=== PATIENT | male | born 1950 | race Caucasian/White ===

== ENCOUNTER 2019-08-07 16:15 | Inpatient (IN) | payer MEDICARE, OTHER ==
[2019-08-07] MEDS ORDERED: Ondansetron 4 MG/2 ML SDV IVPUSH ONE ×2 (16:50→19:11)
--- NOTE | 2019-08-07 17:13 | EDM.PDOC ---
ED HPI GENERAL MEDICAL PROBLEM - General Chief Complaint: Gastrointestinal Problem Stated Complaint: THROWING UP FOR SEVERAL DAYS Time Seen by Provider: 08/07/19 16:26 Source of Information: Reports: Patient History Limitations: Reports: No Limitations - History of Present Illness INITIAL COMMENTS - FREE TEXT/NARRATIVE: Patient is a 68-year-old male who presents to the ER with complaints of vomiting and diarrhea for the last week. He states that over the last 2 days he has been taking Imodium which has firmed up his stools. Stools are now formed. He does continue to have vomiting with any oral intake. Describes the vomitus as "dark brown liquid ". He denies any black stools or abdominal pain.. Patient noted to have a harsh, wet sounding cough. He states he has had this cough "for years ". He does state that the cough has worsened over the last week. He has a history of emphysema, as well as liver cirrhosis. Patient is a 50-year smoker and currently smokes three-quarter pack per day. Oxygen saturation in triage was found to be 85% on room air. He is currently on 3 L via nasal cannula satting. He denies any fever or chills. He does have a history of alcohol use, however states he has not drink alcohol in the last 15 years. Right Abdomen Pain Score (Numeric/FACES): 6 - Related Data Allergies Allergy/AdvReac Type Severity Reaction Status Date / Time No Known Allergies Allergy Verified 08/07/19 22:18 Home Meds: Home Meds Acetaminophen [Tylenol] 325 - 650 mg PO ASDIRECTED 08/07/19 [History] Benztropine [Cogentin] 1 mg PO BEDTIME 08/07/19 [History] Methadone 5 mg PO BID 08/07/19 [History] Omeprazole 20 mg PO DAILY 08/07/19 [History] risperiDONE [Risperdal] 2 mg PO BID 08/07/19 [History] traZODone HCl [Trazodone HCl] 50 mg PO BEDTIME 08/07/19 [History] Past Medical History Gastrointestinal History: Reports: Other (See Below) Other Gastrointestinal History: paracentesis Psychiatric History: Reports: Schizophrenia Social & Family History - Tobacco Use Smoking Status *Q: Current Every Day Smoker Years of Tobacco use: 53 Packs/Tins Daily: 0.7 - Caffeine Use Caffeine Use: Reports: Coffee, Soda - Recreational Drug Use Recreational Drug Use: No ED ROS GENERAL - Review of Systems Review Of Systems: Comprehensive ROS is negative, except as noted in HPI. ED EXAM, GI/ABD - Physical Exam Exam: See Below Exam Limited By: No Limitations General Appearance: Alert, WD/WN, No Apparent Distress Respiratory/Chest: No Respiratory Distress, No Accessory Muscle Use, Chest Non- Tender, Decreased Breath Sounds (thoughout), Crackles (course to right lower lobe) GI/Abdominal Exam: Normal Bowel Sounds, Soft, No Organomegaly, No Distention, No Abnormal Bruit, No Mass, Pelvis Stable, Tender (mild epigastric tenderness) Extremities: Normal Inspection, Normal Range of Motion, Non-Tender, Normal Capillary Refill, No Pedal Edema Neurological: Alert, Oriented, CN II-XII Intact, Normal Cognition, Normal Gait, Normal Reflexes, No Motor/Sensory Deficits Psychiatric: Normal Affect, Normal Mood Skin Exam: Warm, Dry, Intact, Normal Color, No Rash Course - Vital Signs Last Recorded V/S: Last Vital Signs Temp 100.1 F 08/07/19 16:33 Pulse 115 H 08/07/19 16:33 Resp 24 H 08/07/19 16:33 BP 126/72 08/07/19 16:33 Pulse Ox 89 L 08/07/19 22:25 - Orders/Labs/Meds Orders: Active Orders 24 hr Category Date Time Status Peripheral IV Care [RC] . DIRECTED Care 08/07/19 16:51 Active CULTURE BLOOD [BC] Stat Lab 08/07/19 18:35 Received CULTURE BLOOD [BC] Stat Lab 08/07/19 18:45 Received PROCALCITONIN [REF] Routine Lab 08/07/19 17:20 Received Sodium Chloride 0.9% [Normal Saline] 1,000 ml Med 08/07/19 17:00 Active IV ASDIRECTED Sodium Chloride 0.9% [Saline Flush] Med 08/07/19 16:51 Active 10 ml FLUSH ASDIRECTED PRN Blood Culture x2 Reflex Set [OM.PC] Stat Oth 08/07/19 18:23 Ordered Peripheral IV Insertion Adult [OM.PC] Stat Oth 08/07/19 16:50 Ordered Medication Orders Acetaminophen (Tylenol) 650 mg PO Q4H PRN PRN Reason: Pain (Mild 1-3)/fever Guaifenesin (Mucinex) 600 mg PO BID [facility] Sodium Chloride (Normal Saline) 1,000 mls @ 150 mls/hr IV ASDIRECTED [facility] Last Admin: 08/07/19 17:21 Dose: 150 mls/hr Azithromycin 500 mg/ Sodium (Chloride) 250 mls @ 250 mls/hr IV Q24H [facility] Ceftriaxone Sodium 2 gm/ (Sodium Chloride) 100 mls @ 200 mls/hr IV Q24H [facility] Influenza Virus Vaccine (Fluzone High-Dose Syringe) 180 mcg IM .ONCE ONE Stop: 08/08/19 10:01 Ipratropium Golden (Atrovent) 0.5 mg NEB Q4HRRT [facility] Last Admin: 08/07/19 22:22 Dose: 0.5 mg Nicotine (Habitrol) 21 mg TRDERM DAILY [facility] Ondansetron HCl (Zofran Odt) 4 mg PO Q6H PRN PRN Reason: nausea, able to take PO Ondansetron HCl (Zofran) 4 mg IV Q6H [facility] Oseltamivir Phosphate (Tamiflu) 75 mg PO BID [facility] Sodium Chloride (Saline Flush) 10 ml FLUSH ASDIRECTED PRN PRN Reason: Keep Vein Open Last Admin: 08/07/19 17:21 Dose: 10 ml Labs: Laboratory Tests 08/07/19 08/07/19 08/07/19 Range/Units 17:20 17:20 17:20 WBC 12.74 H (4.23-9.07) K/mm3 RBC 4.25 L (4.63-6.08) M/mm3 Hgb 14.1 (13.7-17.5) gm/dl Hct 40.9 (40.1-51.0) % MCV 96.2 H (79.0-92.2) fl MCH 33.2 H (25.7-32.2) pg MCHC 34.5 (32.2-35.5) g/dl RDW Std Deviation 44.0 H (35.1-43.9) fL Plt Count 179 (163-337) K/mm3 MPV 9.0 L (9.4-12.3) fl Neut % (Auto) 90.9 H (34.0-67.9) % Lymph % (Auto) 3.1 L (21.8-53.1) % [place] % (Auto) 5.7 (5.3-12.2) % Eos % (Auto) 0 L (0.8-7.0) Baso % (Auto) 0.1 (0.1-1.2) % Neut # (Auto) 11.57 H (1.78-5.38) K/mm3 Lymph # (Auto) 0.40 L (1.32-3.57) K/mm3 [place] # (Auto) 0.73 (0.30-0.82) K/mm3 Eos # (Auto) 0.00 L (0.04-0.54) K/mm3 Baso # (Auto) 0.01 (0.01-0.08) K/mm3 Manual Slide Review Abnormal smear PT (9.7-12.0) SECONDS INR APTT (22-31) SECONDS Sodium 131 L (136-145) mEq/L Potassium 3.5 (3.5-5.1) mEq/L Chloride 92 L (98-107) mEq/L Carbon Dioxide 31 (21-32) mEq/L Anion Gap 11.5 (5-15) BUN 8 (7-18) mg/dL Creatinine 0.9 (0.7-1.3) mg/dL Est Cr Clr Drug Dosing 69.09 mL/min Estimated GFR (MDRD) > 60 (>60) mL/min BUN/Creatinine Ratio 8.9 L (14-18) Glucose 121 H (80-115) mg/dL Lactic Acid (0.4-2.0) mmol/L Calcium 8.0 L (8.5-10.1) mg/dL Phosphorus 2.3 L (2.6-4.7) mg/dL Magnesium 1.4 L (1.8-2.4) mg/dl Total Bilirubin 0.6 (0.2-1.0) mg/dL AST 21 (15-37) U/L ALT 20 (16-63) U/L Alkaline Phosphatase 48 (46-116) U/L C-Reactive Protein 21.5 H* (<1.0) mg/dL Total Protein 6.2 L (6.4-8.2) g/dl Albumin 3.3 L (3.4-5.0) g/dl Globulin 2.9 gm/dL Albumin/Globulin Ratio 1.1 (1-2) Urine Color (Yellow) Urine Appearance (Clear) Urine pH (5.0-8.0) Ur Specific [place] (1.005-1.030) Urine Protein (Negative) Urine Glucose (UA) (Negative) Urine Ketones (Negative) Urine Occult Blood (Negative) Urine Nitrite (Negative) Urine Bilirubin (Negative) Urine Urobilinogen (0.2-1.0) Ur Leukocyte Esterase (Negative) Urine RBC (0-5) /hpf Urine WBC (0-5) /hpf Ur Squamous Epith Cells (0-5) /hpf Urine Bacteria (FEW) /hpf Urine Mucus (FEW) /hpf 08/07/19 08/07/19 08/07/19 Range/Units 17:20 18:35 19:25 WBC (4.23-9.07) K/mm3 RBC (4.63-6.08) M/mm3 Hgb (13.7-17.5) gm/dl Hct (40.1-51.0) % MCV (79.0-92.2) fl MCH (25.7-32.2) pg MCHC (32.2-35.5) g/dl RDW Std Deviation (35.1-43.9) fL Plt Count (163-337) K/mm3 MPV (9.4-12.3) fl Neut % (Auto) (34.0-67.9) % Lymph % (Auto) (21.8-53.1) % [place] % (Auto) (5.3-12.2) % Eos % (Auto) (0.8-7.0) Baso % (Auto) (0.1-1.2) % Neut # (Auto) (1.78-5.38) K/mm3 Lymph # (Auto) (1.32-3.57) K/mm3 [place] # (Auto) (0.30-0.82) K/mm3 Eos # (Auto) (0.04-0.54) K/mm3 Baso # (Auto) (0.01-0.08) K/mm3 Manual Slide Review PT 12.4 H (9.7-12.0) SECONDS INR 1.15 APTT 39 H (22-31) SECONDS Sodium (136-145) mEq/L Potassium (3.5-5.1) mEq/L Chloride (98-107) mEq/L Carbon Dioxide (21-32) mEq/L Anion Gap (5-15) BUN (7-18) mg/dL Creatinine (0.7-1.3) mg/dL Est Cr Clr Drug Dosing mL/min Estimated GFR (MDRD) (>60) mL/min BUN/Creatinine Ratio (14-18) Glucose (80-115) mg/dL Lactic Acid 1.1 (0.4-2.0) mmol/L Calcium (8.5-10.1) mg/dL Phosphorus (2.6-4.7) mg/dL Magnesium (1.8-2.4) mg/dl Total Bilirubin (0.2-1.0) mg/dL AST (15-37) U/L ALT (16-63) U/L Alkaline Phosphatase (46-116) U/L C-Reactive Protein (<1.0) mg/dL Total Protein (6.4-8.2) g/dl Albumin (3.4-5.0) g/dl Globulin gm/dL Albumin/Globulin Ratio (1-2) Urine Color Yellow (Yellow) Urine Appearance Clear (Clear) Urine pH 6.0 (5.0-8.0) Ur Specific [place] 1.025 (1.005-1.030) Urine Protein 2+ H (Negative) Urine Glucose (UA) Negative (Negative) Urine Ketones 2+ H (Negative) Urine Occult Blood 2+ H (Negative) Urine Nitrite Negative (Negative) Urine Bilirubin 1+ H (Negative) Urine Urobilinogen 0.2 (0.2-1.0) Ur Leukocyte Esterase Negative (Negative) Urine RBC 5-10 H (0-5) /hpf Urine WBC 0-5 (0-5) /hpf Ur Squamous Epith Cells 0-5 (0-5) /hpf Urine Bacteria Not seen (FEW) /hpf Urine Mucus Not seen (FEW) /hpf Meds: Medications Generic Name Dose Route Start Last Admin Trade Name Freq PRN Reason Stop Dose Admin Acetaminophen 650 mg 08/07/19 21:29 Tylenol PO Q4H PRN Pain (Mild 1-3)/fever Guaifenesin 600 mg 08/08/19 09:00 Mucinex PO BID [facility] Sodium Chloride 1,000 mls @ 150 mls/hr 08/07/19 17:00 08/07/19 17:21 Normal Saline IV 150 mls/hr ASDIRECTED [facility] Administration Azithromycin 500 mg/ Sodium 250 mls @ 250 mls/hr 08/07/19 22:00 Chloride IV Q24H [facility] Ceftriaxone Sodium 2 gm/ 100 mls @ 200 mls/hr 08/08/19 21:00 Sodium Chloride IV Q24H [facility] Influenza Virus Vaccine 180 mcg 08/08/19 10:00 Fluzone High-Dose 2019-20 Syringe IM 08/08/19 10:01 .ONCE ONE Ipratropium Golden 0.5 mg 08/07/19 22:00 08/07/19 22:22 Atrovent NEB 0.5 mg Q4HRRT [facility] Administration Nicotine 21 mg 08/08/19 09:00 Habitrol TRDERM DAILY [facility] Ondansetron HCl 4 mg 08/07/19 21:29 Zofran Odt PO Q6H PRN nausea, able to take PO Ondansetron HCl 4 mg 08/07/19 21:30 Zofran IV Q6H [facility] Oseltamivir Phosphate 75 mg 08/07/19 21:45 Tamiflu PO BID [facility] Sodium Chloride 10 ml 08/07/19 16:51 08/07/19 17:21 Saline Flush FLUSH 10 ml ASDIRECTED PRN Administration Keep Vein Open Discontinued Medications Generic Name Dose Route Start Last Admin Trade Name Freq PRN Reason Stop Dose Admin Ceftriaxone Sodium Confirm 08/07/19 19:44 08/07/19 19:51 Rocephin Administered 08/07/19 19:45 Not Given Dose 2 gm IV .STK-MED ONE Ceftriaxone Sodium 2 gm/ 100 mls @ 200 mls/hr 08/07/19 19:31 08/07/19 19:47 Sodium Chloride IV 08/07/19 20:00 Not Given ONETIME ONE Magnesium Sulfate 2 gm/ Premix 50 mls @ 25 mls/hr 08/07/19 19:43 08/07/19 20: 24 IV 08/07/19 21:42 25 mls/hr ONETIME ONE Administration Ceftriaxone Sodium 2 gm/ 100 mls @ 200 mls/hr 08/07/19 19:46 08/07/19 19:49 Sodium Chloride IV 08/07/19 20:15 200 mls/hr Q24H [facility] Administration Sodium Chloride Confirm 08/07/19 19:44 08/07/19 19:51 Normal Saline Administered 08/07/19 19:45 Not Given Dose 100 mls @ as directed .ROUTE .STK-MED ONE Influenza Virus Vaccine 1 each 08/07/19 22:45 Pharmacy To Dose - Influenza Vaccine IM 08/07/19 22:46 ONETIME ONE Ondansetron HCl 4 mg 08/07/19 16:50 08/07/19 17:20 Zofran IVPUSH 08/07/19 16:51 4 mg ONETIME ONE Administration Ondansetron HCl 4 mg 08/07/19 19:11 08/07/19 19:51 Zofran IVPUSH 08/07/19 19:12 4 mg ONETIME ONE Administration - Re-Assessments/Exams Free Text/Narrative Re-Assessment/Exam: 08/07/19 19:42 Hematology was significant for WBC elevated at 12.74. Sodium low at 131, magnesium low at 1.4, phosphorus low at 2.3, CRP elevated at 21.5, lactic acid was normal urine was negative for any signs of infection. X-ray of the chest showed increased perihilar interstitial changes in the mid and lower lungs. Suspicious for bronchitis or possible early pneumonia. He does have a stable nodule with his left lung base from prior CT. In addition he does have a focal density in the posterior costophrenic angle most likely due a small area of additional pneumonia. Patient is currently on 2 L of oxygen satting 93%. He did have 1 additional emesis while in the emergency department. Nurse describes it as dark green in color does not appear to be hematochezia. I have ordered additional dose of Zofran for him. Rocephin has been started. I will also order magnesium IV. Will contact the hospitalist, Dr. Hargrove to discuss admission. 08/07/192044 Dr. Hargrove was here to see the patient. She will write admission orders. Departure - Departure Time of Disposition: 20:45 Disposition: Admitted As Inpatient 64 Condition: Fair Clinical Impression: Pneumonia Qualifiers: Pneumonia type: due to unspecified organism Laterality: unspecified laterality Lung location: unspecified part of lung Qualified Code(s): J18.9 - Pneumonia, unspecified organism - Discharge Information Sepsis Event Note - Evaluation Sepsis Screening Result: No Definite Risk - Focused Exam Vital Signs: Vital Signs Temp Pulse Resp BP Pulse Ox 08/07/19 16:33 100.1 F 115 H 24 H 126/72 85 L Date Exam was Performed: 08/07/19 Time Exam was Performed: 23:08 - My Orders Last 24 Hours: My Active Orders 08/07/19 16:50 Peripheral IV Insertion Adult [OM.PC] Stat 08/07/19 16:51 Peripheral IV Care [RC] . DIRECTED Sodium Chloride 0.9% [Saline Flush] 10 ml FLUSH ASDIRECTED PRN 08/07/19 17:00 Sodium Chloride 0.9% [Normal Saline] 1,000 ml IV ASDIRECTED 08/07/19 17:20 PROCALCITONIN [REF] Routine 08/07/19 18:23 Blood Culture x2 Reflex Set [OM.PC] Stat 08/07/19 18:35 CULTURE BLOOD [BC] Stat 08/07/19 18:45 CULTURE BLOOD [BC] Stat - Assessment/Plan Last 24 Hours: My Active Orders 08/07/19 16:50 Peripheral IV Insertion Adult [OM.PC] Stat 08/07/19 16:51 Peripheral IV Care [RC] . DIRECTED Sodium Chloride 0.9% [Saline Flush] 10 ml FLUSH ASDIRECTED PRN 08/07/19 17:00 Sodium Chloride 0.9% [Normal Saline] 1,000 ml IV ASDIRECTED 08/07/19 17:20 PROCALCITONIN [REF] Routine 08/07/19 18:23 Blood Culture x2 Reflex Set [OM.PC] Stat 08/07/19 18:35 CULTURE BLOOD [BC] Stat 08/07/19 18:45 CULTURE BLOOD [BC] Stat
[2019-08-07] MEDS: Sodium Chloride 0.9% 1,000 ML IV SCH (17:21)
[2019-08-07] MEDS: Sodium Chloride 0.9% 10 ML Syringe FLUSH PRN (17:21)
[2019-08-07] MEDS ORDERED: cefTRIAXone 2 GM in Sodium Chloride 0.9% 100 ML IV ONE (19:31)
--- NOTE | 2019-08-07 19:39 | CR ---
Chest: 2 views of the chest are obtained. Comparison: Prior chest CT of 09/14/12. Stable nodule within the left lung base is seen. This currently measures 2.8 cm. Areas of increased interstitial change are seen within the right inferior and right mid perihilar regions on both sides. There is blunting of the posterior costophrenic angle on the lateral view. Heart size does not appear enlarged. Tortuous thoracic aorta is seen. Bony structures shows mild scoliosis. No acute osseous finding is seen. Impression: 1. Increased perihilar interstitial change within the mid and lower lungs. Findings are suspicious for bronchitis and possible early areas of pneumonia. 2. Stable nodule within the left lung base from prior chest CT. 3. Focal density within the posterior costophrenic angle most likely due to small area of additional pneumonia. Diagnostic code #3 Study was dictated in MD[facility]
[2019-08-07] MEDS ORDERED: Magnesium Sulfate/Water 2 GM in Premix Bag 1 BAG IV ONE (19:43)
[2019-08-07] MEDS ORDERED: Sodium Chloride 0.9% 100 ML ONE (19:44)
[2019-08-07] MEDS ORDERED: cefTRIAXone 2 GM AdvVial IV ONE (19:44)
[2019-08-07] MEDS ORDERED: cefTRIAXone 2 GM in Sodium Chloride 0.9% 100 ML IV STA (19:46)
--- NOTE | 2019-08-07 21:43 | PCM.HP.2 ---
H&P History of Present Illness - General Date of Service: 08/07/19 Admit Problem/Dx: Admission Diagnosis/Problem Admission Diagnosis/Problem Pneumonia involving left lung - History of Present Illness Initial Comments - Free Text/Narative: Patient is a very poor historian This is a 68 year old male with past medical history of schizophrenia and chronic pain who comes to the ED complaining of refractory nausea and inability to tolerate PO. As per patient about a week ago he suddenly developed nausea associated with diarrhea. States nausea lasted all day long and he has been unable to tolerate any oral ingestion. As for his diarrhea he states he has been having approximately 3BM/day, this didn't stop until he took some Imodium 3-4 days ago. Of note he associated symptoms with worsening cough of the same time duration. Right Abdomen Pain Score (Numeric/FACES): 6 - Related Data Allergies/Adverse Reactions: Allergies Allergy/AdvReac Type Severity Reaction Status Date / Time No Known Allergies Allergy Verified 08/07/19 16:27 Home Medications: Home Meds Acetaminophen [Tylenol] 325 - 650 mg PO ASDIRECTED 08/07/19 [History] Benztropine [Cogentin] 1 mg PO BEDTIME 08/07/19 [History] Methadone 5 mg PO BID 08/07/19 [History] Omeprazole 20 mg PO DAILY 08/07/19 [History] risperiDONE [Risperdal] 2 mg PO BID 08/07/19 [History] traZODone HCl [Trazodone HCl] 50 mg PO BEDTIME 08/07/19 [History] Past Medical History Gastrointestinal History: Reports: Other (See Below) Other Gastrointestinal History: paracentesis Psychiatric History: Reports: Schizophrenia Social & Family History - Tobacco Use Smoking Status *Q: Current Every Day Smoker Years of Tobacco use: 53 Packs/Tins Daily: 0.7 - Caffeine Use Caffeine Use: Reports: Coffee, Soda - Recreational Drug Use Recreational Drug Use: No H&P Review of Systems - Review of Systems: Review Of Systems: See Below General: Reports: Fever (measured temp 101.1 yesterday ), Chills, Malaise, Weakness, Fatigue, Diaphoresis, Decreased Appetite, Weight Loss (5lb). Denies: Night Sweats HEENT: Denies: Ear Pain, Eye Pain, Glasses, Headaches, Hearing Changes, Rhinitis , Post Nasal Drip, Sinus Congestion, Sore Throat, Vertigo, Visual Changes Pulmonary: Reports: Shortness of Breath, Cough, Sputum. Denies: Wheezing, Pleuritic Chest Pain, Hemoptysis Cardiovascular: Reports: Dyspnea on Exertion, Orthopnea, PND, Lightheadedness. Denies: Chest Pain, Palpitations, Edema, Syncope, Claudication Gastrointestinal: Reports: Anorexia, Diarrhea (when he urinates he is unable to hold bowel movements), Decreased Appetite, Nausea, Vomiting. Denies: Abdominal Pain, Black Stool, Bloody Stool, Constipation, Difficulty Swallowing, Distension , Flatus, Hematemesis, Hematochezia, Melena, Mucous in Stool Genitourinary: Reports: Frequency, Incontinence. Denies: Dysuria, Burning, Pain , Urgency Musculoskeletal: Denies: Joint Pain, Joint Swelling, Muscle Pain, Muscle Stiffness Skin: Denies: Cyanosis, Jaundice, Mottled, Pallor, Diaphoresis, Dryness Neurological: Denies: Dizziness, Headache Exam - Exam Exam: See Below - Vital Signs Vital Signs: Last Vital Signs Temp 100.1 F 08/07/19 16:33 Pulse 115 H 08/07/19 16:33 Resp 24 H 08/07/19 16:33 BP 126/72 08/07/19 16:33 Pulse Ox 85 L 08/07/19 16:33 Weight: 63.957 kg - Exam Quality Assessment: Supplemental Oxygen. No: Central Line/PICC, Urinary Catheter, DVT Prophylaxis, Skin Breakdown General: Alert, Cooperative, Moderate Distress HEENT: Conjunctiva Clear, EACs Clear, Hearing Intact, Nares Patent, Pupils Equal , Pupils Reactive. No: Mucosa Moist & Price (dry with poor dentition) Neck: Supple, Trachea Midline, +2 Carotid Pulse wo Bruit. No: Lymphadenopathy Lungs: Decreased Breath Sounds, Crackles, Wheezing. No: Rales, Rhonchi, Rub, Stridor Cardiovascular: Regular Rate, Regular Rhythm. No: Systolic Murmur, Diastolic Murmur, Rubs, Gallop/S3, Gallop/S4 GI/Abdominal Exam: Normal Bowel Sounds, Soft, Tender. No: Distended, Guarding, Rigid, Rebound Back Exam: Normal Inspection. No: CVA Tenderness (L), CVA Tenderness (R), Paraspinal Tenderness, Vertebral Tenderness Extremities: Normal Inspection, Non-Tender, No Pedal Edema, Slow Capillary Refill - Patient Data Result Diagrams: 08/07/19 17:20 08/07/19 17:20 Sepsis Event Note - Evaluation Sepsis Screening Result: No Definite Risk - Focused Exam Vital Signs: Vital Signs Temp Pulse Resp BP Pulse Ox 08/07/19 16:33 100.1 F 115 H 24 H 126/72 85 L Date Exam was Performed: 08/07/19 Time Exam was Performed: 21:52 - Problem List (1) Pneumonia SNOMED Code(s): 199265140 ICD Code: J18.9 - PNEUMONIA, UNSPECIFIED ORGANISM Status: Acute Current Visit: Yes (2) Intractable nausea and vomiting SNOMED Code(s): 714988462 ICD Code: R11.2 - NAUSEA WITH VOMITING, UNSPECIFIED Status: Acute Current Visit: Yes (3) Productive cough SNOMED Code(s): 79368233, 392400715, 052737775 ICD Code: R05 - COUGH Status: Acute Current Visit: Yes (4) Lung nodule SNOMED Code(s): 168846231 ICD Code: R91.1 - SOLITARY PULMONARY NODULE Status: Acute Current Visit: Yes (5) Smoker SNOMED Code(s): 61638639 ICD Code: F17.200 - NICOTINE DEPENDENCE, UNSPECIFIED, UNCOMPLICATED Status : Acute Current Visit: Yes (6) Schizophrenia SNOMED Code(s): 71106538 ICD Code: F20.9 - SCHIZOPHRENIA, UNSPECIFIED Status: Acute Current Visit : Yes (7) Chronic pain SNOMED Code(s): 15518676 ICD Code: G89.29 - OTHER CHRONIC PAIN Status: Acute Current Visit: Yes (8) Methadone maintenance therapy patient SNOMED Code(s): 37531196, 651217110 ICD Code: F11.20 - OPIOID DEPENDENCE, UNCOMPLICATED Status: Acute Current Visit: Yes (9) Tachycardia SNOMED Code(s): 9031607 ICD Code: R00.0 - TACHYCARDIA, UNSPECIFIED Status: Acute Current Visit: Yes (10) Leukocytosis SNOMED Code(s): 923784213, 350998907 ICD Code: D72.829 - ELEVATED WHITE BLOOD CELL COUNT, UNSPECIFIED Status: Acute Current Visit: Yes (11) Hyponatremia SNOMED Code(s): 82524606 ICD Code: E87.1 - HYPO-OSMOLALITY AND HYPONATREMIA Status: Acute Current Visit: Yes (12) Hypomagnesemia SNOMED Code(s): 716755829 ICD Code: E83.42 - HYPOMAGNESEMIA Status: Acute Current Visit: Yes (13) Hypophosphatemia SNOMED Code(s): 6653398 ICD Code: E83.39 - OTHER DISORDERS OF PHOSPHORUS METABOLISM Status: Acute Current Visit: Yes (14) Acute hypoxemic respiratory failure SNOMED Code(s): 479828892 ICD Code: J96.01 - ACUTE RESPIRATORY FAILURE WITH HYPOXIA Status: Acute Current Visit: Yes (15) Hypoalbuminemia SNOMED Code(s): 381430640 ICD Code: E88.09 - OTH DISORDERS OF PLASMA-PROTEIN METABOLISM, NEC Status: Acute Current Visit: Yes (16) Macrocytosis without anemia SNOMED Code(s): 456431217 ICD Code: D75.89 - OTHER SPECIFIED DISEASES OF BLOOD AND BLOOD-FORMING ORGANS Status: Acute Current Visit: Yes Problem List Initiated/Reviewed/Updated: Yes Assessment/Plan Comment:: Pneumonia Acute hypoxemic respiratory failure Emphysema Chronic cough, acutely worsening in past week Associated with fever CXR with infiltrate in posterior lobes PLAN - Azithromycin, Tamiflu and Rocephin - DuoNebs q4h - Incentive spirometer - ABGs - Goal SatO2 > 88% Intractable nausea and vomiting Hyponatremia/Hypomagnesemia/Hypophosphatemia Unable to tolerate PO in past week Took Imodium which stopped diarrhea PLAN - Volume repletion with LR - Replace magnesium - Repeat labs in AM Lung nodule, right lung Active Smoker Smokes 2/4ppd > 40y PLAN - Nicotine patch Schizophrenia Home management with Trazodone, Risperdal and Benztropine PLAN - Let me sleep protocol as much as possible - Continue home medications Chronic pain Methadone maintenance therapy patient Denies any current pain PLAN - Continue methadone Muscle wasting Hypoalbuminemia Macrocytosis without anemia Significant muscle wasting PLAN - Prealbumin - Vitamin B12 level and folic acid level - Dietary consult PROPHYLAXIS DVT- compression stockings GI- not indicated CODE STATUS: FULL CODE DISPOSITION: Patient will be admitted for O2 supplementation and IV antibiotics as well as scheduled nebulizations and IVF supplementations. - Mortality Measure Prognosis:: Poor
[2019-08-07] MEDS: Ipratropium 0.02% 0.5 MG/2.5 ML Neb Soln NEB SCH (22:22)
[2019-08-08] MEDS: Azithromycin 500 MG in Sodium Chloride 0.9% 250 ML IV SCH ×2 (00:23→22:06)
[2019-08-08] MEDS: Oseltamivir 75 MG Cap PO SCH ×3 (00:27→21:21)
[2019-08-08] MEDS: Ondansetron 4 MG/2 ML SDV IV SCH ×4 (00:27→12:40)
[2019-08-08] MEDS: Ipratropium 0.02% 0.5 MG/2.5 ML Neb Soln NEB SCH ×6 (02:09→21:40)
[2019-08-08] MEDS: Sodium Chloride 0.9% 1,000 ML IV SCH (06:02)
[2019-08-08] MEDS: Nicotine 21 MG/24 Hr Patch TRDERM SCH (09:45)
[2019-08-08] MEDS: guaiFENesin 600 MG Tab.ER PO SCH ×2 (09:45→21:21)
--- NOTE | 2019-08-08 11:36 | PCM.PN ---
- General Info Date of Service: 08/08/19 Admission Dx/Problem (Free Text): Admission Diagnosis/Problem Admission Diagnosis/Problem Pneumonia involving left lung Subjective Update: Slept ok Feeling better Tmax 97.9 3.5L o2 Functional Status: Reports: Pain Controlled, Tolerating Diet, Ambulating, Urinating, Incentive Spirometry, Other (acapella ). Denies: New Symptoms - Review of Systems General: Reports: No Symptoms, Weakness, Fatigue, Malaise. Denies: Fever, Chills HEENT: Reports: No Symptoms. Denies: Headaches, Sore Throat Pulmonary: Reports: Shortness of Breath, Cough, Sputum, Wheezing. Denies: Pleuritic Chest Pain Cardiovascular: Reports: Dyspnea on Exertion. Denies: Chest Pain, Palpitations Gastrointestinal: Reports: No Symptoms. Denies: Abdominal Pain, Constipation, Diarrhea, Nausea, Vomiting Genitourinary: Reports: No Symptoms. Denies: Pain Musculoskeletal: Reports: No Symptoms Skin: Reports: No Symptoms Neurological: Reports: No Symptoms. Denies: Difficulty Walking, Gait Disturbance Psychiatric: Reports: No Symptoms - Patient Data Vitals - Most Recent: Last Vital Signs Temp 97.7 F 08/08/19 09:16 Pulse 87 08/08/19 09:16 Resp 20 08/08/19 09:16 BP 96/60 08/08/19 09:16 Pulse Ox 90 L 08/08/19 09:37 Weight - Most Recent: 138 lb 1.6 oz I&O - Last 24 Hours: Intake & Output 08/07/19 08/08/19 08/08/19 22:59 06:59 14:59 Intake Total 1550 Output Total 0 Balance 1550 Lab Results Last 24 Hours: Laboratory Results - last 24 hr 08/07/19 08/07/19 08/07/19 Range/Units 17:20 17:20 17:20 WBC 12.74 H (4.23-9.07) K/mm3 RBC 4.25 L (4.63-6.08) M/mm3 Hgb 14.1 (13.7-17.5) gm/dl Hct 40.9 (40.1-51.0) % MCV 96.2 H (79.0-92.2) fl MCH 33.2 H (25.7-32.2) pg MCHC 34.5 (32.2-35.5) g/dl RDW Std Deviation 44.0 H (35.1-43.9) fL Plt Count 179 (163-337) K/mm3 MPV 9.0 L (9.4-12.3) fl Neut % (Auto) 90.9 H (34.0-67.9) % Lymph % (Auto) 3.1 L (21.8-53.1) % Jenkins % (Auto) 5.7 (5.3-12.2) % Eos % (Auto) 0 L (0.8-7.0) Baso % (Auto) 0.1 (0.1-1.2) % Neut # (Auto) 11.57 H (1.78-5.38) K/mm3 Lymph # (Auto) 0.40 L (1.32-3.57) K/mm3 Jenkins # (Auto) 0.73 (0.30-0.82) K/mm3 Eos # (Auto) 0.00 L (0.04-0.54) K/mm3 Baso # (Auto) 0.01 (0.01-0.08) K/mm3 Manual Slide Review Abnormal smear PT (9.7-12.0) SECONDS INR APTT (22-31) SECONDS Puncture Site ABG pH (7.35-7.45) ABG pCO2 (35.0-45.0) mmHg ABG pO2 (80.0-100.0) mmHg ABG HCO3 (22.0-26.0) meq/L ABG O2 Saturation (96.0-97.0) % ABG Base Excess (-2-2.0) Juan Test A-a Gradient mmHg O2 Delivery Device Oxygen Flow Rate FiO2 (21.00-100.00) % Sodium 131 L (136-145) mEq/L Potassium 3.5 (3.5-5.1) mEq/L Chloride 92 L (98-107) mEq/L Carbon Dioxide 31 (21-32) mEq/L Anion Gap 11.5 (5-15) BUN 8 (7-18) mg/dL Creatinine 0.9 (0.7-1.3) mg/dL Est Cr Clr Drug Dosing 69.09 mL/min Estimated GFR (MDRD) > 60 (>60) mL/min BUN/Creatinine Ratio 8.9 L (14-18) Glucose 121 H (80-115) mg/dL Lactic Acid (0.4-2.0) mmol/L Calcium 8.0 L (8.5-10.1) mg/dL Phosphorus 2.3 L (2.6-4.7) mg/dL Magnesium 1.4 L (1.8-2.4) mg/dl Total Bilirubin 0.6 (0.2-1.0) mg/dL AST 21 (15-37) U/L ALT 20 (16-63) U/L Alkaline Phosphatase 48 (46-116) U/L C-Reactive Protein 21.5 H* (<1.0) mg/dL Total Protein 6.2 L (6.4-8.2) g/dl Albumin 3.3 L (3.4-5.0) g/dl Globulin 2.9 gm/dL Albumin/Globulin Ratio 1.1 (1-2) Vitamin B12 (193-986) pg/ml Folate (8.6-58.9) ng/mL Urine Color (Yellow) Urine Appearance (Clear) Urine pH (5.0-8.0) Ur Specific [place] (1.005-1.030) Urine Protein (Negative) Urine Glucose (UA) (Negative) Urine Ketones (Negative) Urine Occult Blood (Negative) Urine Nitrite (Negative) Urine Bilirubin (Negative) Urine Urobilinogen (0.2-1.0) Ur Leukocyte Esterase (Negative) Urine RBC (0-5) /hpf Urine WBC (0-5) /hpf Ur Squamous Epith Cells (0-5) /hpf Urine Bacteria (FEW) /hpf Urine Mucus (FEW) /hpf 08/07/19 08/07/19 08/07/19 Range/Units 17:20 18:35 19:25 WBC (4.23-9.07) K/mm3 RBC (4.63-6.08) M/mm3 Hgb (13.7-17.5) gm/dl Hct (40.1-51.0) % MCV (79.0-92.2) fl MCH (25.7-32.2) pg MCHC (32.2-35.5) g/dl RDW Std Deviation (35.1-43.9) fL Plt Count (163-337) K/mm3 MPV (9.4-12.3) fl Neut % (Auto) (34.0-67.9) % Lymph % (Auto) (21.8-53.1) % Jenkins % (Auto) (5.3-12.2) % Eos % (Auto) (0.8-7.0) Baso % (Auto) (0.1-1.2) % Neut # (Auto) (1.78-5.38) K/mm3 Lymph # (Auto) (1.32-3.57) K/mm3 Jenkins # (Auto) (0.30-0.82) K/mm3 Eos # (Auto) (0.04-0.54) K/mm3 Baso # (Auto) (0.01-0.08) K/mm3 Manual Slide Review PT 12.4 H (9.7-12.0) SECONDS INR 1.15 APTT 39 H (22-31) SECONDS Puncture Site ABG pH (7.35-7.45) ABG pCO2 (35.0-45.0) mmHg ABG pO2 (80.0-100.0) mmHg ABG HCO3 (22.0-26.0) meq/L ABG O2 Saturation (96.0-97.0) % ABG Base Excess (-2-2.0) Juan Test A-a Gradient mmHg O2 Delivery Device Oxygen Flow Rate FiO2 (21.00-100.00) % Sodium (136-145) mEq/L Potassium (3.5-5.1) mEq/L Chloride (98-107) mEq/L Carbon Dioxide (21-32) mEq/L Anion Gap (5-15) BUN (7-18) mg/dL Creatinine (0.7-1.3) mg/dL Est Cr Clr Drug Dosing mL/min Estimated GFR (MDRD) (>60) mL/min BUN/Creatinine Ratio (14-18) Glucose (80-115) mg/dL Lactic Acid 1.1 (0.4-2.0) mmol/L Calcium (8.5-10.1) mg/dL Phosphorus (2.6-4.7) mg/dL Magnesium (1.8-2.4) mg/dl Total Bilirubin (0.2-1.0) mg/dL AST (15-37) U/L ALT (16-63) U/L Alkaline Phosphatase (46-116) U/L C-Reactive Protein (<1.0) mg/dL Total Protein (6.4-8.2) g/dl Albumin (3.4-5.0) g/dl Globulin gm/dL Albumin/Globulin Ratio (1-2) Vitamin B12 (193-986) pg/ml Folate (8.6-58.9) ng/mL Urine Color Yellow (Yellow) Urine Appearance Clear (Clear) Urine pH 6.0 (5.0-8.0) Ur Specific [place] 1.025 (1.005-1.030) Urine Protein 2+ H (Negative) Urine Glucose (UA) Negative (Negative) Urine Ketones 2+ H (Negative) Urine Occult Blood 2+ H (Negative) Urine Nitrite Negative (Negative) Urine Bilirubin 1+ H (Negative) Urine Urobilinogen 0.2 (0.2-1.0) Ur Leukocyte Esterase Negative (Negative) Urine RBC 5-10 H (0-5) /hpf Urine WBC 0-5 (0-5) /hpf Ur Squamous Epith Cells 0-5 (0-5) /hpf Urine Bacteria Not seen (FEW) /hpf Urine Mucus Not seen (FEW) /hpf 08/07/19 08/08/19 08/08/19 Range/Units 22:00 06:06 06:06 WBC 14.42 H (4.23-9.07) K/mm3 RBC 3.98 L (4.63-6.08) M/mm3 Hgb 13.1 L (13.7-17.5) gm/dl Hct 38.9 L (40.1-51.0) % MCV 97.7 H (79.0-92.2) fl MCH 32.9 H (25.7-32.2) pg MCHC 33.7 (32.2-35.5) g/dl RDW Std Deviation 45.3 H (35.1-43.9) fL Plt Count 173 (163-337) K/mm3 MPV 9.6 (9.4-12.3) fl Neut % (Auto) 87.0 H (34.0-67.9) % Lymph % (Auto) 6.6 L (21.8-53.1) % Jenkins % (Auto) 6.0 (5.3-12.2) % Eos % (Auto) 0 L (0.8-7.0) Baso % (Auto) 0.1 (0.1-1.2) % Neut # (Auto) 12.54 H (1.78-5.38) K/mm3 Lymph # (Auto) 0.95 L (1.32-3.57) K/mm3 Jenkins # (Auto) 0.87 H (0.30-0.82) K/mm3 Eos # (Auto) 0.00 L (0.04-0.54) K/mm3 Baso # (Auto) 0.02 (0.01-0.08) K/mm3 Manual Slide Review Abnormal smear PT (9.7-12.0) SECONDS INR APTT (22-31) SECONDS Puncture Site Rt radial ABG pH 7.41 (7.35-7.45) ABG pCO2 43.3 (35.0-45.0) mmHg ABG pO2 62.0 L (80.0-100.0) mmHg ABG HCO3 26.8 H (22.0-26.0) meq/L ABG O2 Saturation 89.9 L (96.0-97.0) % ABG Base Excess 2.3 H (-2-2.0) Juan Test Positive A-a Gradient 84 mmHg O2 Delivery Device Cannula Oxygen Flow Rate 2.0 FiO2 28.00 (21.00-100.00) % Sodium 136 (136-145) mEq/L Potassium 3.8 (3.5-5.1) mEq/L Chloride 98 (98-107) mEq/L Carbon Dioxide 32 (21-32) mEq/L Anion Gap 9.8 (5-15) BUN 9 (7-18) mg/dL Creatinine 0.9 (0.7-1.3) mg/dL Est Cr Clr Drug Dosing 67.37 mL/min Estimated GFR (MDRD) > 60 (>60) mL/min BUN/Creatinine Ratio 10.0 L (14-18) Glucose 97 (80-115) mg/dL Lactic Acid (0.4-2.0) mmol/L Calcium 7.6 L (8.5-10.1) mg/dL Phosphorus 2.8 (2.6-4.7) mg/dL Magnesium 2.0 (1.8-2.4) mg/dl Total Bilirubin (0.2-1.0) mg/dL AST (15-37) U/L ALT (16-63) U/L Alkaline Phosphatase (46-116) U/L C-Reactive Protein (<1.0) mg/dL Total Protein (6.4-8.2) g/dl Albumin (3.4-5.0) g/dl Globulin gm/dL Albumin/Globulin Ratio (1-2) Vitamin B12 (193-986) pg/ml Folate (8.6-58.9) ng/mL Urine Color (Yellow) Urine Appearance (Clear) Urine pH (5.0-8.0) Ur Specific [place] (1.005-1.030) Urine Protein (Negative) Urine Glucose (UA) (Negative) Urine Ketones (Negative) Urine Occult Blood (Negative) Urine Nitrite (Negative) Urine Bilirubin (Negative) Urine Urobilinogen (0.2-1.0) Ur Leukocyte Esterase (Negative) Urine RBC (0-5) /hpf Urine WBC (0-5) /hpf Ur Squamous Epith Cells (0-5) /hpf Urine Bacteria (FEW) /hpf Urine Mucus (FEW) /hpf /16/ Range/Units 06:06 WBC (4.23-9.07) K/mm3 RBC (4.63-6.08) M/mm3 Hgb (13.7-17.5) gm/dl Hct (40.1-51.0) % MCV (79.0-92.2) fl MCH (25.7-32.2) pg MCHC (32.2-35.5) g/dl RDW Std Deviation (35.1-43.9) fL Plt Count (163-337) K/mm3 MPV (9.4-12.3) fl Neut % (Auto) (34.0-67.9) % Lymph % (Auto) (21.8-53.1) % Jenkins % (Auto) (5.3-12.2) % Eos % (Auto) (0.8-7.0) Baso % (Auto) (0.1-1.2) % Neut # (Auto) (1.78-5.38) K/mm3 Lymph # (Auto) (1.32-3.57) K/mm3 Jenkins # (Auto) (0.30-0.82) K/mm3 Eos # (Auto) (0.04-0.54) K/mm3 Baso # (Auto) (0.01-0.08) K/mm3 Manual Slide Review PT (9.7-12.0) SECONDS INR APTT (22-31) SECONDS Puncture Site ABG pH (7.35-7.45) ABG pCO2 (35.0-45.0) mmHg ABG pO2 (80.0-100.0) mmHg ABG HCO3 (22.0-26.0) meq/L ABG O2 Saturation (96.0-97.0) % ABG Base Excess (-2-2.0) Juan Test A-a Gradient mmHg O2 Delivery Device Oxygen Flow Rate FiO2 (21.00-100.00) % Sodium (136-145) mEq/L Potassium (3.5-5.1) mEq/L Chloride (98-107) mEq/L Carbon Dioxide (21-32) mEq/L Anion Gap (5-15) BUN (7-18) mg/dL Creatinine (0.7-1.3) mg/dL Est Cr Clr Drug Dosing mL/min Estimated GFR (MDRD) (>60) mL/min BUN/Creatinine Ratio (14-18) Glucose (80-115) mg/dL Lactic Acid (0.4-2.0) mmol/L Calcium (8.5-10.1) mg/dL Phosphorus (2.6-4.7) mg/dL Magnesium (1.8-2.4) mg/dl Total Bilirubin (0.2-1.0) mg/dL AST (15-37) U/L ALT (16-63) U/L Alkaline Phosphatase (46-116) U/L C-Reactive Protein (<1.0) mg/dL Total Protein (6.4-8.2) g/dl Albumin (3.4-5.0) g/dl Globulin gm/dL Albumin/Globulin Ratio (1-2) Vitamin B12 479 (193-986) pg/ml Folate 15.4 (8.6-58.9) ng/mL Urine Color (Yellow) Urine Appearance (Clear) Urine pH (5.0-8.0) Ur Specific [place] (1.005-1.030) Urine Protein (Negative) Urine Glucose (UA) (Negative) Urine Ketones (Negative) Urine Occult Blood (Negative) Urine Nitrite (Negative) Urine Bilirubin (Negative) Urine Urobilinogen (0.2-1.0) Ur Leukocyte Esterase (Negative) Urine RBC (0-5) /hpf Urine WBC (0-5) /hpf Ur Squamous Epith Cells (0-5) /hpf Urine Bacteria (FEW) /hpf Urine Mucus (FEW) /hpf Med Orders - Current: Current Medications Acetaminophen (Tylenol) 650 mg PO Q4H PRN PRN Reason: Pain (Mild 1-3)/fever Benzonatate (Tessalon Perles) 100 mg PO BID [facility] Guaifenesin (Mucinex) 600 mg PO BID [facility] Last Admin: 08/08/19 09:45 Dose: 600 mg Guaifenesin (Mucinex) 600 mg PO BID [facility] Sodium Chloride (Normal Saline) 1,000 mls @ 150 mls/hr IV ASDIRECTED [facility] Last Admin: 08/08/19 06:02 Dose: 150 mls/hr Azithromycin 500 mg/ Sodium (Chloride) 250 mls @ 250 mls/hr IV Q24H [facility] Last Admin: 08/08/19 00:23 Dose: 250 mls/hr Ceftriaxone Sodium 2 gm/ (Sodium Chloride) 100 mls @ 200 mls/hr IV Q24H [facility] Ipratropium [place] (Atrovent) 0.5 mg NEB Q4HRRT [facility] Last Admin: 08/08/19 09:34 Dose: 0.5 mg Nicotine (Habitrol) 21 mg TRDERM DAILY [facility] Last Admin: 08/08/19 09:45 Dose: 21 mg Ondansetron HCl (Zofran Odt) 4 mg PO Q6H PRN PRN Reason: nausea, able to take PO Ondansetron HCl (Zofran) 4 mg IV Q6H [facility] Last Admin: 08/08/19 06:02 Dose: 4 mg Oseltamivir Phosphate (Tamiflu) 75 mg PO BID [facility] Last Admin: 08/08/19 09:45 Dose: 75 mg Sodium Chloride (Saline Flush) 10 ml FLUSH ASDIRECTED PRN PRN Reason: Keep Vein Open Last Admin: 08/07/19 17:21 Dose: 10 ml Discontinued Medications Ceftriaxone Sodium (Rocephin) Confirm Administered Dose 2 gm IV .STK-MED ONE Stop: 08/07/19 19:45 Last Admin: 08/07/19 19:51 Dose: Not Given Ceftriaxone Sodium 2 gm/ (Sodium Chloride) 100 mls @ 200 mls/hr IV ONETIME ONE Stop: 08/07/19 20:00 Last Admin: 08/07/19 19:47 Dose: Not Given Magnesium Sulfate 2 gm/ Premix 50 mls @ 25 mls/hr IV ONETIME ONE Stop: 08/07/19 21:42 Last Admin: 08/07/19 20:24 Dose: 25 mls/hr Ceftriaxone Sodium 2 gm/ (Sodium Chloride) 100 mls @ 200 mls/hr IV Q24H [facility] Stop: 08/07/19 20:15 Last Admin: 08/07/19 19:49 Dose: 200 mls/hr Sodium Chloride (Normal Saline) Confirm Administered Dose 100 mls @ as directed .ROUTE .STK-MED ONE Stop: 08/07/19 19:45 Last Admin: 08/07/19 19:51 Dose: Not Given Influenza Virus Vaccine (Pharmacy To Dose - Influenza Vaccine) 1 each IM ONETIME ONE Stop: 08/07/19 22:46 Influenza Virus Vaccine (Fluzone High-Dose Syringe) 180 mcg IM .ONCE ONE Stop: 08/08/19 10:01 Ondansetron HCl (Zofran) 4 mg IVPUSH ONETIME ONE Stop: 08/07/19 16:51 Last Admin: 08/07/19 17:20 Dose: 4 mg Ondansetron HCl (Zofran) 4 mg IVPUSH ONETIME ONE Stop: 08/07/19 19:12 Last Admin: 08/07/19 19:51 Dose: 4 mg Ondansetron HCl (Zofran) 4 mg IV Q6H [facility] Last Admin: 08/08/19 06:03 Dose: Not Given - Exam Quality Assessment: DVT Prophylaxis General: Alert, Cooperative, No Acute Distress HEENT: Pupils Equal, Pupils Reactive, Mucous Membr. Moist/[place] Neck: Supple, Trachea Midline Lungs: Normal Respiratory Effort, Decreased Breath Sounds, Crackles, Wheezing Cardiovascular: Regular Rate, Regular Rhythm GI/Abdominal Exam: Normal Bowel Sounds, Soft, Non-Tender, No Distention (Male) Exam: Deferred Back Exam: Normal Inspection, Full Range of Motion Extremities: Normal Inspection, Normal Range of Motion, Non-Tender, No Pedal Edema, Normal Capillary Refill Skin: Warm, Dry, Intact Neurological: No New Focal Deficit Psy/Mental Status: Alert Sepsis Event Note - Evaluation Sepsis Screening Result: No Definite Risk - Focused Exam Vital Signs: Vital Signs Temp Pulse Resp BP Pulse Ox Pulse Ox 08/08/19 09:37 90 L 08/08/19 09:16 97.7 F 87 20 96/60 92 L 08/08/19 06:00 97.7 F 88 20 101/52 L 92 L 08/08/19 05:54 92 L 08/08/19 02:12 92 L 08/08/19 00:32 98.8 F 95 20 99/57 L 91 L Date Exam was Performed: 08/08/19 Time Exam was Performed: 15:26 - Problem List & Annotations (1) Acute hypoxemic respiratory failure SNOMED Code(s): 393179506 Code(s): J96.01 - ACUTE RESPIRATORY FAILURE WITH HYPOXIA Status: Acute Priority: High Current Visit: Yes (2) Chronic pain SNOMED Code(s): 75647822 Code(s): G89.29 - OTHER CHRONIC PAIN Status: Chronic Priority: Medium Current Visit: Yes Qualifiers: Chronic pain type: other chronic pain Qualified Code(s): G89.29 - Other chronic pain (3) Hypoalbuminemia SNOMED Code(s): 252688278 Code(s): E88.09 - OTH DISORDERS OF PLASMA-PROTEIN METABOLISM, NEC Status: Acute Priority: High Current Visit: Yes (4) Hypomagnesemia SNOMED Code(s): 916380711 Code(s): E83.42 - HYPOMAGNESEMIA Status: Resolved Priority: High Current Visit: Yes (5) Hyponatremia SNOMED Code(s): 58534233 Code(s): E87.1 - HYPO-OSMOLALITY AND HYPONATREMIA Status: Resolved Priority: High Current Visit: Yes (6) Hypophosphatemia SNOMED Code(s): 7591961 Code(s): E83.39 - OTHER DISORDERS OF PHOSPHORUS METABOLISM Status: Resolved Priority: High Current Visit: Yes (7) Intractable nausea and vomiting SNOMED Code(s): 832164777 Code(s): R11.2 - NAUSEA WITH VOMITING, UNSPECIFIED Status: Resolved Priority: High Current Visit: Yes (8) Leukocytosis SNOMED Code(s): 226986599, 999314647 Code(s): D72.829 - ELEVATED WHITE BLOOD CELL COUNT, UNSPECIFIED Status: Acute Priority: High Current Visit: Yes Qualifiers: Leukocytosis type: unspecified Qualified Code(s): D72.829 - Elevated white blood cell count, unspecified (9) Lung nodule SNOMED Code(s): 183141183 Code(s): R91.1 - SOLITARY PULMONARY NODULE Status: Acute Priority: High Current Visit: Yes (10) Macrocytosis without anemia SNOMED Code(s): 960051996 Code(s): D75.89 - OTHER SPECIFIED DISEASES OF BLOOD AND BLOOD-FORMING ORGANS Status: Acute Priority: High Current Visit: Yes (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 Code(s): 78670433, 768519110 Code(s): F11.20 - OPIOID DEPENDENCE, UNCOMPLICATED Status: Chronic Priority: Medium Current Visit: Yes (12) Pneumonia SNOMED Code(s): 582105631 Code(s): J18.9 - PNEUMONIA, UNSPECIFIED ORGANISM Status: Acute Priority: High Current Visit: Yes Qualifiers: Pneumonia type: due to unspecified organism Laterality: unspecified laterality Lung location: unspecified part of lung Qualified Code(s): J18.9 - Pneumonia, unspecified organism (13) Productive cough SNOMED Code(s): 69847964, 684372395, 658457243 Code(s): R05 - COUGH Status: Acute Priority: High Current Visit: Yes (14) Schizophrenia SNOMED Code(s): 69606961 Code(s): F20.9 - SCHIZOPHRENIA, UNSPECIFIED Status: Chronic Priority: Medium Current Visit: Yes Qualifiers: Schizophrenia type: unspecified Qualified Code(s): F20.9 - Schizophrenia, unspecified (15) Smoker SNOMED Code(s): 93344156 Code(s): F17.200 - NICOTINE DEPENDENCE, UNSPECIFIED, UNCOMPLICATED Status: Chronic Priority: Medium Current Visit: Yes (16) Tachycardia SNOMED Code(s): 9047950 Code(s): R00.0 - TACHYCARDIA, UNSPECIFIED Status: Resolved Priority: High Current Visit: Yes - Problem List Review Problem List Initiated/Reviewed/Updated: Yes - Plan Plan:: Pneumonia Acute hypoxemic respiratory failure Emphysema Chronic cough, acutely worsening in past week Associated with fever - none on floor CXR with infiltrate in posterior lobes 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 - regular diet, thin liquids PLAN - Azithromycin, Tamiflu and Rocephin - DuoNebs q4h - Incentive spirometer - ABG as needed - Goal SatO2 > 88% - Sputum culture Intractable nausea and vomiting S/P Hyponatremia/Hypomagnesemia/Hypophosphatemia Unable to tolerate PO in past week Took Imodium which stopped diarrhea PLAN - Volume repletion with NS - Replace magnesium - Monitor Lung nodule, right lung Active Smoker Smokes 2/4ppd > 40y PLAN - Nicotine patch Schizophrenia Home management with Trazodone, Risperdal and Benztropine PLAN - Let me sleep protocol as much as possible - Continue home medications Chronic pain Methadone maintenance therapy patient Denies any current pain PLAN - Continue methadone Muscle wasting Hypoalbuminemia Macrocytosis without anemia Significant muscle wasting Vitamin B12 level and folic acid level WNL PLAN - Prealbumin - Dietary consult PROPHYLAXIS DVT- compression stockings GI- not indicated CODE STATUS: FULL CODE DISPOSITION: Patient will be admitted for O2 supplementation and IV antibiotics as well as scheduled nebulizations and IVF supplementations.
[2019-08-08] MEDS ORDERED: guaiFENesin 600 MG Tab.ER PO SCH (12:00)
[2019-08-08] MEDS: Benzonatate 100 MG Cap PO SCH ×2 (12:40→21:21)
[2019-08-08] MEDS ORDERED: Sodium Chloride 0.9% 1,000 ML IV SCH (15:30)
[2019-08-08] MEDS: risperiDONE 1 MG Tab PO SCH (21:21)
[2019-08-08] MEDS: Benztropine 1 MG Tab PO SCH (21:21)
[2019-08-08] MEDS: cefTRIAXone 2 GM in Sodium Chloride 0.9% 100 ML IV SCH (21:21)
[2019-08-08] MEDS: traZODone 50 MG Tab PO SCH (21:21)
[2019-08-08] MEDS: Methadone 5 MG Tab PO SCH (21:22)
[2019-08-09] MEDS: Ipratropium 0.02% 0.5 MG/2.5 ML Neb Soln NEB SCH ×6 (01:57→21:30)
--- NOTE | 2019-08-09 08:21 | PCM.PN ---
- General Info Date of Service: 08/09/19 Admission Dx/Problem (Free Text): Admission Diagnosis/Problem Admission Diagnosis/Problem Pneumonia involving left lung Subjective Update: Feeling good today Has been ambulating Denies any concerns Continued dry cough, but improved Last BM on Eating ok Functional Status: Reports: Pain Controlled, Tolerating Diet, Ambulating, Urinating, Incentive Spirometry, Other (acapella ). Denies: New Symptoms - Review of Systems General: Reports: No Symptoms. Denies: Fever, Weakness, Fatigue, Malaise HEENT: Reports: No Symptoms. Denies: Headaches, Sore Throat Pulmonary: Reports: No Symptoms, Shortness of Breath, Cough, Wheezing. Denies: Sputum Cardiovascular: Reports: No Symptoms, Dyspnea on Exertion. Denies: Chest Pain, Palpitations Gastrointestinal: Reports: No Symptoms. Denies: Abdominal Pain, Constipation, Diarrhea, Nausea, Vomiting Genitourinary: Reports: No Symptoms. Denies: Pain Musculoskeletal: Reports: No Symptoms Skin: Reports: No Symptoms. Denies: Cyanosis Neurological: Reports: No Symptoms. Denies: Pre-Existing Deficit, Difficulty Walking, Weakness, Gait Disturbance Psychiatric: Reports: No Symptoms - Patient Data Vitals - Most Recent: Last Vital Signs Temp 98.1 F 08/09/19 04:06 Pulse 77 08/09/19 04:06 Resp 18 08/09/19 04:06 BP 138/98 H 08/09/19 04:06 Pulse Ox 91 L 08/09/19 05:48 Weight - Most Recent: 142 lb I&O - Last 24 Hours: Intake & Output 08/08/19 08/09/19 08/09/19 22:59 06:59 14:59 Intake Total 900 830 Output Total 1 600 Balance 899 230 Lab Results Last 24 Hours: Laboratory Results - last 24 hr 08/07/19 08/07/19 08/08/19 Range/Units 17:20 22:36 06:06 Prealbumin 5.9 L (17.0-34.0) mg/dL Procalcitonin 0.21 H 0.28 H (<0.10) ng/mL Dmitriy Results Last 24 Hours: Microbiology 08/07/19 18:45 Aerobic Blood Culture - Preliminary Blood - Venous - Lab Draw NO GROWTH AFTER 1 DAY Anaerobic Blood Culture - Preliminary NO GROWTH AFTER 1 DAY 08/07/19 18:35 Aerobic Blood Culture - Preliminary Blood - Venous NO GROWTH AFTER 1 DAY Anaerobic Blood Culture - Preliminary NO GROWTH AFTER 1 DAY Med Orders - Current: Current Medications Acetaminophen (Tylenol) 650 mg PO Q4H PRN PRN Reason: Pain (Mild 1-3)/fever Benzonatate (Tessalon Perles) 100 mg PO BID [facility] Last Admin: 08/08/19 21:21 Dose: 100 mg Benztropine Mesylate (Cogentin) 1 mg PO BEDTIME [facility] Last Admin: 08/08/19 21:21 Dose: 1 mg Guaifenesin (Mucinex) 600 mg PO BID [facility] Last Admin: 08/08/19 21:21 Dose: 600 mg Azithromycin 500 mg/ Sodium (Chloride) 250 mls @ 250 mls/hr IV Q24H [facility] Last Admin: 08/08/19 22:06 Dose: 250 mls/hr Ceftriaxone Sodium 2 gm/ (Sodium Chloride) 100 mls @ 200 mls/hr IV Q24H [facility] Last Admin: 08/08/19 21:21 Dose: 200 mls/hr Ipratropium [place] (Atrovent) 0.5 mg NEB Q4HRRT [facility] Last Admin: 08/09/19 05:46 Dose: 0.5 mg Methadone HCl (Methadone) 5 mg PO BID [facility] Last Admin: 08/08/19 21:22 Dose: 5 mg Nicotine (Habitrol) 21 mg TRDERM DAILY [facility] Last Admin: 08/08/19 09:45 Dose: 21 mg Ondansetron HCl (Zofran Odt) 4 mg PO Q6H PRN PRN Reason: nausea, able to take PO Oseltamivir Phosphate (Tamiflu) 75 mg PO BID [facility] Last Admin: 08/08/19 21:21 Dose: 75 mg Risperidone (Risperidal) 2 mg PO BEDTIME [facility] Last Admin: 08/08/19 21:21 Dose: 2 mg Risperidone (Risperidal) 1 mg PO DAILY [facility] Sodium Chloride (Saline Flush) 10 ml FLUSH ASDIRECTED PRN PRN Reason: Keep Vein Open Last Admin: 08/07/19 17:21 Dose: 10 ml Trazodone HCl (Trazodone) 50 mg PO BEDTIME [facility] Last Admin: 08/08/19 21:21 Dose: 50 mg Discontinued Medications Ceftriaxone Sodium (Rocephin) Confirm Administered Dose 2 gm IV .STK-MED ONE Stop: 08/07/19 19:45 Last Admin: 08/07/19 19:51 Dose: Not Given Guaifenesin (Mucinex) 600 mg PO BID [facility] Last Admin: 08/08/19 12:51 Dose: Not Given Sodium Chloride (Normal Saline) 1,000 mls @ 150 mls/hr IV ASDIRECTED [facility] Last Admin: 08/08/19 06:02 Dose: 150 mls/hr Ceftriaxone Sodium 2 gm/ (Sodium Chloride) 100 mls @ 200 mls/hr IV ONETIME ONE Stop: 08/07/19 20:00 Last Admin: 08/07/19 19:47 Dose: Not Given Magnesium Sulfate 2 gm/ Premix 50 mls @ 25 mls/hr IV ONETIME ONE Stop: 08/07/19 21:42 Last Admin: 08/07/19 20:24 Dose: 25 mls/hr Ceftriaxone Sodium 2 gm/ (Sodium Chloride) 100 mls @ 200 mls/hr IV Q24H [facility] Stop: 08/07/19 20:15 Last Admin: 08/07/19 19:49 Dose: 200 mls/hr Sodium Chloride (Normal Saline) Confirm Administered Dose 100 mls @ as directed .ROUTE .STK-[facility] ONE Stop: 08/07/19 19:45 Last Admin: 08/07/19 19:51 Dose: Not Given Sodium Chloride (Normal Saline) 1,000 mls @ 75 mls/hr IV ASDIRECTED [facility] Influenza Virus Vaccine (Pharmacy To Dose - Influenza Vaccine) 1 each IM ONETIME ONE Stop: 08/07/19 22:46 Influenza Virus Vaccine (Fluzone High-Dose Syringe) 180 mcg IM .ONCE ONE Stop: 08/08/19 10:01 Ondansetron HCl (Zofran) 4 mg IVPUSH ONETIME ONE Stop: 08/07/19 16:51 Last Admin: 08/07/19 17:20 Dose: 4 mg Ondansetron HCl (Zofran) 4 mg IVPUSH ONETIME ONE Stop: 08/07/19 19:12 Last Admin: 08/07/19 19:51 Dose: 4 mg Ondansetron HCl (Zofran) 4 mg IV Q6H [facility] Last Admin: 08/08/19 06:03 Dose: Not Given Ondansetron HCl (Zofran) 4 mg IV Q6H [facility] Last Admin: 08/08/19 12:40 Dose: 4 mg - Exam Quality Assessment: Supplemental Oxygen (1L ), DVT Prophylaxis General: Alert, Cooperative, No Acute Distress HEENT: Pupils Equal, Pupils Reactive, Mucous Membr. Moist/[place] Neck: Supple, Trachea Midline Lungs: Normal Respiratory Effort, Decreased Breath Sounds, Wheezing (mild ) Cardiovascular: Regular Rate, Regular Rhythm GI/Abdominal Exam: Normal Bowel Sounds, Soft, Non-Tender, No Distention (Male) Exam: Deferred Back Exam: Normal Inspection, Full Range of Motion Extremities: Normal Inspection, Normal Range of Motion, Non-Tender, No Pedal Edema, Normal Capillary Refill Skin: Warm, Dry, Intact Neurological: No New Focal Deficit Psy/Mental Status: Alert Sepsis Event Note - Evaluation Sepsis Screening Result: No Definite Risk - Focused Exam Vital Signs: Vital Signs Temp Pulse Resp BP Pulse Ox Pulse Ox 08/09/19 05:48 91 L 08/09/19 04:06 98.1 F 77 18 138/98 H 95 08/09/19 04:00 95 08/09/19 01:59 92 L 08/09/19 00:42 97.5 F 83 18 91/54 L 93 L 08/09/19 00:00 93 L Date Exam was Performed: 08/09/19 Time Exam was Performed: 14:15 - Problem List & Annotations (1) Acute hypoxemic respiratory failure SNOMED Code(s): 982914977 Code(s): J96.01 - ACUTE RESPIRATORY FAILURE WITH HYPOXIA Status: Acute Priority: High Current Visit: Yes (2) Chronic pain SNOMED Code(s): 01761377 Code(s): G89.29 - OTHER CHRONIC PAIN Status: Chronic Priority: Medium Current Visit: Yes Qualifiers: Chronic pain type: other chronic pain Qualified Code(s): G89.29 - Other chronic pain (3) Hypoalbuminemia SNOMED Code(s): 107276378 Code(s): E88.09 - OTH DISORDERS OF PLASMA-PROTEIN METABOLISM, NEC Status: Acute Priority: High Current Visit: Yes (4) Hypomagnesemia SNOMED Code(s): 932429944 Code(s): E83.42 - HYPOMAGNESEMIA Status: Resolved Priority: High Current Visit: Yes (5) Hyponatremia SNOMED Code(s): 41878321 Code(s): E87.1 - HYPO-OSMOLALITY AND HYPONATREMIA Status: Resolved Priority: High Current Visit: Yes (6) Hypophosphatemia SNOMED Code(s): 7377195 Code(s): E83.39 - OTHER DISORDERS OF PHOSPHORUS METABOLISM Status: Resolved Priority: High Current Visit: Yes (7) Intractable nausea and vomiting SNOMED Code(s): 266746433 Code(s): R11.2 - NAUSEA WITH VOMITING, UNSPECIFIED Status: Resolved Priority: High Current Visit: Yes (8) Leukocytosis SNOMED Code(s): 294696949, 619752353 Code(s): D72.829 - ELEVATED WHITE BLOOD CELL COUNT, UNSPECIFIED Status: Acute Priority: High Current Visit: Yes Qualifiers: Leukocytosis type: unspecified Qualified Code(s): D72.829 - Elevated white blood cell count, unspecified (9) Lung nodule SNOMED Code(s): 432373009 Code(s): R91.1 - SOLITARY PULMONARY NODULE Status: Acute Priority: High Current Visit: Yes (10) Macrocytosis without anemia SNOMED Code(s): 310775658 Code(s): D75.89 - OTHER SPECIFIED DISEASES OF BLOOD AND BLOOD-FORMING ORGANS Status: Acute Priority: High Current Visit: Yes (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 Code(s): 00254600, 229106067 Code(s): F11.20 - OPIOID DEPENDENCE, UNCOMPLICATED Status: Chronic Priority: Medium Current Visit: Yes (12) Pneumonia SNOMED Code(s): 759117776 Code(s): J18.9 - PNEUMONIA, UNSPECIFIED ORGANISM Status: Acute Priority: High Current Visit: Yes Qualifiers: Pneumonia type: due to unspecified organism Laterality: unspecified laterality Lung location: unspecified part of lung Qualified Code(s): J18.9 - Pneumonia, unspecified organism (13) Productive cough SNOMED Code(s): 68970998, 108582130, 344614274 Code(s): R05 - COUGH Status: Acute Priority: High Current Visit: Yes (14) Schizophrenia SNOMED Code(s): 31334200 Code(s): F20.9 - SCHIZOPHRENIA, UNSPECIFIED Status: Chronic Priority: Medium Current Visit: Yes Qualifiers: Schizophrenia type: unspecified Qualified Code(s): F20.9 - Schizophrenia, unspecified (15) Smoker SNOMED Code(s): 45538898 Code(s): F17.200 - NICOTINE DEPENDENCE, UNSPECIFIED, UNCOMPLICATED Status: Chronic Priority: Medium Current Visit: Yes (16) Tachycardia SNOMED Code(s): 8099191 Code(s): R00.0 - TACHYCARDIA, UNSPECIFIED Status: Resolved Priority: High Current Visit: Yes - Problem List Review Problem List Initiated/Reviewed/Updated: Yes - My Orders Last 24 Hours: My Active Orders 08/08/19 21:00 Benztropine [Cogentin] 1 mg PO BEDTIME Methadone 5 mg PO BID risperiDONE [RisperiDAL] 2 mg PO BEDTIME traZODone 50 mg PO BEDTIME - Plan Plan:: Pneumonia Acute hypoxemic respiratory failure Emphysema Chronic cough, acutely worsening in past week Associated with fever - none on floor CXR with infiltrate in posterior lobes [employer]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 - regular diet, thin liquids PLAN - Azithromycin, Tamiflu and Rocephin - Atrovent q4h - Incentive spirometer/Acapella - ABG as needed - Goal SatO2 > 88% - Sputum culture Lung nodule, right lung Active Smoker Smokes 2/4ppd > 40y PLAN - Nicotine patch Schizophrenia Home management with Trazodone, Risperdal and Benztropine PLAN - Let me sleep protocol as much as possible - Continue home medications Chronic pain Methadone maintenance therapy patient Denies any current pain PLAN - Continue methadone Muscle wasting Hypoalbuminemia Macrocytosis without anemia Significant muscle wasting Vitamin B12 level and folic acid level WNL Pre-albumin low PLAN - Dietary consult S/P Intractable nausea and vomiting S/P Hyponatremia/Hypomagnesemia/Hypophosphatemia PROPHYLAXIS DVT- compression stockings GI- not indicated CODE STATUS: FULL CODE DISPOSITION: Patient will be admitted for O2 supplementation and IV antibiotics as well as scheduled nebulizations and IVF supplementations.
[2019-08-09] MEDS ORDERED: risperiDONE 1 MG Tab PO SCH (09:00)
[2019-08-09] MEDS: Nicotine 21 MG/24 Hr Patch TRDERM SCH (09:23)
[2019-08-09] MEDS: Methadone 5 MG Tab PO SCH ×2 (09:24→20:09)
[2019-08-09] MEDS: Benzonatate 100 MG Cap PO SCH ×2 (09:24→20:12)
[2019-08-09] MEDS: guaiFENesin 600 MG Tab.ER PO SCH ×2 (09:24→20:08)
[2019-08-09] MEDS: risperiDONE 1 MG Tab PO SCH ×2 (09:26→20:09)
[2019-08-09] MEDS: Oseltamivir 75 MG Cap PO SCH ×2 (09:26→20:08)
[2019-08-09] MEDS: Ondansetron 4 MG Tab.DIS PO PRN (16:40)
[2019-08-09] MEDS: Benztropine 1 MG Tab PO SCH (20:11)
[2019-08-09] MEDS: traZODone 50 MG Tab PO SCH (20:12)
[2019-08-09] MEDS: cefTRIAXone 2 GM in Sodium Chloride 0.9% 100 ML IV SCH (20:13)
[2019-08-09] MEDS: Azithromycin 500 MG in Sodium Chloride 0.9% 250 ML IV SCH (20:59)
[2019-08-10] MEDS: Ipratropium 0.02% 0.5 MG/2.5 ML Neb Soln NEB SCH ×6 (01:52→22:27)
[2019-08-10] MEDS: Oseltamivir 75 MG Cap PO SCH ×2 (09:21→21:30)
[2019-08-10] MEDS: Methadone 5 MG Tab PO SCH ×2 (09:21→21:30)
[2019-08-10] MEDS: risperiDONE 1 MG Tab PO SCH ×2 (09:21→21:31)
[2019-08-10] MEDS: guaiFENesin 600 MG Tab.ER PO SCH ×2 (09:23→21:30)
[2019-08-10] MEDS: Benzonatate 100 MG Cap PO SCH ×2 (09:23→21:30)
[2019-08-10] MEDS: Nicotine 21 MG/24 Hr Patch TRDERM SCH (09:23)
[2019-08-10] MEDS: Sodium Phosphate 30 MMOLE in Sodium Chloride 0.9% 250 ML IV SCH ×2 (12:35→15:12)
--- NOTE | 2019-08-10 15:08 | PCM.PN ---
- General Info Date of Service: 08/10/19 Admission Dx/Problem (Free Text): Admission Diagnosis/Problem Admission Diagnosis/Problem Pneumonia involving left lung Subjective Update: BM today Reports right ab pain like he "pulled a muscle." Eating OK Had a good night Functional Status: Reports: Pain Controlled, Tolerating Diet, Ambulating, Urinating, Incentive Spirometry, Other (acapella ). Denies: New Symptoms - Review of Systems General: Reports: No Symptoms. Denies: Fever, Weakness, Fatigue, Malaise, Chills HEENT: Reports: No Symptoms. Denies: Headaches, Sore Throat Pulmonary: Reports: Shortness of Breath, Cough, Sputum, Wheezing. Denies: Pleuritic Chest Pain Cardiovascular: Reports: Dyspnea on Exertion. Denies: Chest Pain, Palpitations Gastrointestinal: Reports: No Symptoms. Denies: Abdominal Pain, Constipation, Diarrhea, Nausea, Vomiting Genitourinary: Reports: No Symptoms. Denies: Pain Musculoskeletal: Reports: No Symptoms Skin: Reports: No Symptoms Neurological: Reports: No Symptoms Psychiatric: Reports: No Symptoms - Patient Data Vitals - Most Recent: Last Vital Signs Temp 97.9 F 08/10/19 08:45 Pulse 78 08/10/19 08:45 Resp 16 08/10/19 08:45 BP 101/67 08/10/19 08:45 Pulse Ox 96 08/10/19 14:38 Orthostatic Blood Pressure [ 109/60 Standing] Orthostatic Blood Pressure [ 120/69 Sitting] Orthostatic Blood Pressure [ 120/79 Supine] Weight - Most Recent: 141 lb 6.4 oz I&O - Last 24 Hours: Intake & Output 08/09/19 08/10/19 08/10/19 22:59 06:59 14:59 Intake Total 740 500 0 Balance 740 500 0 Lab Results Last 24 Hours: Laboratory Results - last 24 hr 08/10/19 08/10/19 Range/Units 05:28 05:28 WBC 9.90 H (4.23-9.07) K/mm3 RBC 3.73 L (4.63-6.08) M/mm3 Hgb 11.9 L (13.7-17.5) gm/dl Hct 37.1 L (40.1-51.0) % MCV 99.5 H (79.0-92.2) fl MCH 31.9 (25.7-32.2) pg MCHC 32.1 L (32.2-35.5) g/dl RDW Std Deviation 46.5 H (35.1-43.9) fL Plt Count 216 (163-337) K/mm3 MPV 9.5 (9.4-12.3) fl Neut % (Auto) 77.1 H (34.0-67.9) % Lymph % (Auto) 11.2 L (21.8-53.1) % [place] % (Auto) 9.9 (5.3-12.2) % Eos % (Auto) 1.0 (0.8-7.0) Baso % (Auto) 0.3 (0.1-1.2) % Neut # (Auto) 7.63 H (1.78-5.38) K/mm3 Lymph # (Auto) 1.11 L (1.32-3.57) K/mm3 [place] # (Auto) 0.98 H (0.30-0.82) K/mm3 Eos # (Auto) 0.10 (0.04-0.54) K/mm3 Baso # (Auto) 0.03 (0.01-0.08) K/mm3 Manual Slide Review Normal smear Sodium 135 L (136-145) mEq/L Potassium 4.3 (3.5-5.1) mEq/L Chloride 100 (98-107) mEq/L Carbon Dioxide 30 (21-32) mEq/L Anion Gap 9.3 (5-15) BUN 10 (7-18) mg/dL Creatinine 0.7 (0.7-1.3) mg/dL Est Cr Clr Drug Dosing 89.08 mL/min Estimated GFR (MDRD) > 60 (>60) mL/min BUN/Creatinine Ratio 14.3 (14-18) Glucose 100 (80-115) mg/dL Calcium 7.7 L (8.5-10.1) mg/dL Phosphorus 1.8 L (2.6-4.7) mg/dL Magnesium 1.8 (1.8-2.4) mg/dl Dmitriy Results Last 24 Hours: Microbiology 08/07/19 18:45 Aerobic Blood Culture - Preliminary Blood - Venous - Lab Draw NO GROWTH AFTER 2 DAYS Anaerobic Blood Culture - Preliminary NO GROWTH AFTER 2 DAYS 08/07/19 18:35 Aerobic Blood Culture - Preliminary Blood - Venous NO GROWTH AFTER 2 DAYS Anaerobic Blood Culture - Preliminary NO GROWTH AFTER 2 DAYS Med Orders - Current: Current Medications Acetaminophen (Tylenol) 650 mg PO Q4H PRN PRN Reason: Pain (Mild 1-3)/fever Benzonatate (Tessalon Perles) 100 mg PO BID [facility] [place] Last Admin: 08/10/19 09:23 Dose: 100 mg Benztropine Mesylate (Cogentin) 1 mg PO BEDTIME [facility] Last Admin: 08/09/19 20:11 Dose: 1 mg Guaifenesin (Mucinex) 600 mg PO BID [facility] [place] Last Admin: 08/10/19 09:23 Dose: 600 mg Azithromycin 500 mg/ Sodium (Chloride) 250 mls @ 250 mls/hr IV Q24H [facility] Last Admin: 08/09/19 20:59 Dose: 250 mls/hr Ceftriaxone Sodium 2 gm/ (Sodium Chloride) 100 mls @ 200 mls/hr IV Q24H [facility] Last Admin: 08/09/19 20:13 Dose: 200 mls/hr Sodium Phosphate 30 mmole/ (Sodium Chloride) 260 mls @ 130 mls/hr IV Q2H [facility] Stop: 08/10/19 15:59 Last Admin: 08/10/19 12:35 Dose: 130 mls/hr Ipratropium [place] (Atrovent) 0.5 mg NEB Q4HRRT [facility] [place] Last Admin: 08/10/19 14:37 Dose: 0.5 mg Methadone HCl (Methadone) 5 mg PO BID [facility] [place] Last Admin: 08/10/19 09:21 Dose: 5 mg Nicotine (Habitrol) 21 mg TRDERM DAILY [facility] [place] Last Admin: 08/10/19 09:23 Dose: 21 mg Ondansetron HCl (Zofran Odt) 4 mg PO Q6H PRN PRN Reason: nausea, able to take PO Last Admin: 08/09/19 16:40 Dose: 4 mg Ondansetron HCl (Zofran) 4 mg IVPUSH Q8H PRN PRN Reason: Nausea/Vomiting Oseltamivir Phosphate (Tamiflu) 75 mg PO BID [facility] [place] Last Admin: 08/10/19 09:21 Dose: 75 mg Risperidone (Risperidal) 2 mg PO BEDTIME [facility] [place] Last Admin: 08/09/19 20:09 Dose: 2 mg Risperidone (Risperidal) 1 mg PO DAILY [facility] [place] Last Admin: 08/10/19 09:21 Dose: 1 mg Sodium Chloride (Saline Flush) 10 ml FLUSH ASDIRECTED PRN PRN Reason: Keep Vein Open Last Admin: 08/07/19 17:21 Dose: 10 ml Trazodone HCl (Trazodone) 50 mg PO BEDTIME [facility] [place] Last Admin: 08/09/19 20:12 Dose: 50 mg Discontinued Medications Ceftriaxone Sodium (Rocephin) Confirm Administered Dose 2 gm IV .STK-MED ONE Stop: 08/07/19 19:45 Last Admin: 08/07/19 19:51 Dose: Not Given Guaifenesin (Mucinex) 600 mg PO BID [facility] [place] Last Admin: 08/08/19 12:51 Dose: Not Given Sodium Chloride (Normal Saline) 1,000 mls @ 150 mls/hr IV ASDIRECTED [facility] [place] Last Admin: 08/08/19 06:02 Dose: 150 mls/hr Ceftriaxone Sodium 2 gm/ (Sodium Chloride) 100 mls @ 200 mls/hr IV ONETIME ONE Stop: 08/07/19 20:00 Last Admin: 08/07/19 19:47 Dose: Not Given Magnesium Sulfate 2 gm/ Premix 50 mls @ 25 mls/hr IV ONETIME ONE Stop: 08/07/19 21:42 Last Admin: 08/07/19 20:24 Dose: 25 mls/hr Ceftriaxone Sodium 2 gm/ (Sodium Chloride) 100 mls @ 200 mls/hr IV Q24H [facility] Stop: 08/07/19 20:15 Last Admin: 08/07/19 19:49 Dose: 200 mls/hr Sodium Chloride (Normal Saline) Confirm Administered Dose 100 mls @ as directed .ROUTE .STK-MED ONE Stop: 08/07/19 19:45 Last Admin: 08/07/19 19:51 Dose: Not Given Sodium Chloride (Normal Saline) 1,000 mls @ 75 mls/hr IV ASDIRECTED [facility] [place] Influenza Virus Vaccine (Pharmacy To Dose - Influenza Vaccine) 1 each IM ONETIME ONE Stop: 08/07/19 22:46 Influenza Virus Vaccine (Fluzone High-Dose Syringe) 180 mcg IM .ONCE ONE Stop: 08/08/19 10:01 Ondansetron HCl (Zofran) 4 mg IVPUSH ONETIME ONE Stop: 08/07/19 16:51 Last Admin: 08/07/19 17:20 Dose: 4 mg Ondansetron HCl (Zofran) 4 mg IVPUSH ONETIME ONE Stop: 08/07/19 19:12 Last Admin: 08/07/19 19:51 Dose: 4 mg Ondansetron HCl (Zofran) 4 mg IV Q6H [facility] [place] Last Admin: 08/08/19 06:03 Dose: Not Given Ondansetron HCl (Zofran) 4 mg IV Q6H [facility] Last Admin: 08/08/19 12:40 Dose: 4 mg - Exam Quality Assessment: Supplemental Oxygen (1L), DVT Prophylaxis General: Alert, Oriented, Cooperative, No Acute Distress HEENT: Pupils Equal, Pupils Reactive, Mucous Membr. Moist/[place] Neck: Supple, Trachea Midline Lungs: Normal Respiratory Effort, Decreased Breath Sounds, Wheezing Cardiovascular: Regular Rate, Regular Rhythm GI/Abdominal Exam: Normal Bowel Sounds, Soft, Non-Tender, No Distention (Male) Exam: Deferred Back Exam: Normal Inspection, Full Range of Motion Extremities: Normal Inspection, Normal Range of Motion, Non-Tender, No Pedal Edema, Normal Capillary Refill Skin: Warm, Dry, Intact Neurological: No New Focal Deficit Psy/Mental Status: Alert, Normal Affect, Normal Mood Sepsis Event Note - Evaluation Sepsis Screening Result: No Definite Risk - Focused Exam Vital Signs: Vital Signs Temp Pulse Resp BP Pulse Ox Pulse Ox 08/10/19 14:38 96 08/10/19 12:00 92 L 08/10/19 09:36 91 L 08/10/19 08:45 97.9 F 78 16 101/67 92 L 08/10/19 08:00 92 L 08/10/19 05:46 90 L 08/10/19 04:00 93 L 08/10/19 03:18 75 93 L 08/10/19 03:17 97.7 F 77 18 98/63 91 L Date Exam was Performed: 08/10/19 Time Exam was Performed: 15:23 - Problem List & Annotations (1) Acute hypoxemic respiratory failure SNOMED Code(s): 246960989 Code(s): J96.01 - ACUTE RESPIRATORY FAILURE WITH HYPOXIA Status: Acute Priority: High Current Visit: Yes (2) Chronic pain SNOMED Code(s): 24738791 Code(s): G89.29 - OTHER CHRONIC PAIN Status: Chronic Priority: Medium Current Visit: Yes Qualifiers: Chronic pain type: other chronic pain Qualified Code(s): G89.29 - Other chronic pain (3) Hypoalbuminemia SNOMED Code(s): 833350891 Code(s): E88.09 - OTH DISORDERS OF PLASMA-PROTEIN METABOLISM, NEC Status: Acute Priority: High Current Visit: Yes (4) Hypomagnesemia SNOMED Code(s): 000361257 Code(s): E83.42 - HYPOMAGNESEMIA Status: Resolved Priority: High Current Visit: Yes (5) Hyponatremia SNOMED Code(s): 41010874 Code(s): E87.1 - HYPO-OSMOLALITY AND HYPONATREMIA Status: Resolved Priority: High Current Visit: Yes (6) Hypophosphatemia SNOMED Code(s): 9826378 Code(s): E83.39 - OTHER DISORDERS OF PHOSPHORUS METABOLISM Status: Resolved Priority: High Current Visit: Yes (7) Intractable nausea and vomiting SNOMED Code(s): 352191379 Code(s): R11.2 - NAUSEA WITH VOMITING, UNSPECIFIED Status: Resolved Priority: High Current Visit: Yes (8) Leukocytosis SNOMED Code(s): 468528416, 807499637 Code(s): D72.829 - ELEVATED WHITE BLOOD CELL COUNT, UNSPECIFIED Status: Acute Priority: High Current Visit: Yes Qualifiers: Leukocytosis type: unspecified Qualified Code(s): D72.829 - Elevated white blood cell count, unspecified (9) Lung nodule SNOMED Code(s): 175496358 Code(s): R91.1 - SOLITARY PULMONARY NODULE Status: Acute Priority: High Current Visit: Yes (10) Macrocytosis without anemia SNOMED Code(s): 921233653 Code(s): D75.89 - OTHER SPECIFIED DISEASES OF BLOOD AND BLOOD-FORMING ORGANS Status: Acute Priority: High Current Visit: Yes (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 Code(s): 20820579, 787588977 Code(s): F11.20 - OPIOID DEPENDENCE, UNCOMPLICATED Status: Chronic Priority: Medium Current Visit: Yes (12) Pneumonia SNOMED Code(s): 628470753 Code(s): J18.9 - PNEUMONIA, UNSPECIFIED ORGANISM Status: Acute Priority: High Current Visit: Yes Qualifiers: Pneumonia type: due to unspecified organism Laterality: unspecified laterality Lung location: unspecified part of lung Qualified Code(s): J18.9 - Pneumonia, unspecified organism (13) Productive cough SNOMED Code(s): 35684555, 824443173, 266584065 Code(s): R05 - COUGH Status: Acute Priority: High Current Visit: Yes (14) Schizophrenia SNOMED Code(s): 25669033 Code(s): F20.9 - SCHIZOPHRENIA, UNSPECIFIED Status: Chronic Priority: Medium Current Visit: Yes Qualifiers: Schizophrenia type: unspecified Qualified Code(s): F20.9 - Schizophrenia, unspecified (15) Smoker SNOMED Code(s): 15294147 Code(s): F17.200 - NICOTINE DEPENDENCE, UNSPECIFIED, UNCOMPLICATED Status: Chronic Priority: Medium Current Visit: Yes (16) Tachycardia SNOMED Code(s): 7768557 Code(s): R00.0 - TACHYCARDIA, UNSPECIFIED Status: Resolved Priority: High Current Visit: Yes - Problem List Review Problem List Initiated/Reviewed/Updated: Yes - Plan Plan:: Pneumonia Acute hypoxemic respiratory failure Emphysema Chronic cough, acutely worsening in past week Associated with fever - none on floor CXR with infiltrate in posterior lobes [employer]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, thin liquids PLAN - Azithromycin, Tamiflu and Rocephin - Atrovent q4h - Incentive spirometer/Acapella - ABG as needed - Goal SatO2 > 88% - Sputum culture Lung nodule, right lung Active Smoker Smokes 2/4ppd > 40y PLAN - Nicotine patch Schizophrenia Home management with Trazodone, Risperdal and Benztropine PLAN - Let me sleep protocol as much as possible - Continue home medications Chronic pain Methadone maintenance therapy patient Denies any current pain PLAN - Continue methadone Muscle wasting Hypoalbuminemia Macrocytosis without anemia Significant muscle wasting Vitamin B12 level and folic acid level WNL Pre-albumin low PLAN - Dietary consult Hypophosphatemia PLAN - Supplement S/P Intractable nausea and vomiting S/P Hyponatremia/Hypomagnesemia PROPHYLAXIS DVT- compression stockings GI- not indicated CODE STATUS: FULL CODE DISPOSITION: Patient will be admitted for O2 supplementation and IV antibiotics as well as scheduled nebulizations and IVF supplementations.
[2019-08-10] MEDS: cefTRIAXone 2 GM in Sodium Chloride 0.9% 100 ML IV SCH (21:25)
[2019-08-10] MEDS: traZODone 50 MG Tab PO SCH (21:31)
[2019-08-10] MEDS: Benztropine 1 MG Tab PO SCH (21:31)
[2019-08-10] MEDS: Azithromycin 500 MG in Sodium Chloride 0.9% 250 ML IV SCH (22:08)
[2019-08-11] MEDS: Ipratropium 0.02% 0.5 MG/2.5 ML Neb Soln NEB SCH ×4 (02:08→13:29)
--- NOTE | 2019-08-11 09:08 | PCM.PN ---
- General Info Date of Service: 08/11/19 Admission Dx/Problem (Free Text): Admission Diagnosis/Problem Admission Diagnosis/Problem Pneumonia involving left lung Functional Status: Reports: Pain Controlled, Tolerating Diet, Ambulating, Urinating, New Symptoms (Abdominal pain ) - Review of Systems General: Reports: No Symptoms. Denies: Fever, Weakness, Fatigue, Malaise, Chills HEENT: Reports: No Symptoms. Denies: Headaches, Sore Throat Pulmonary: Reports: Cough, Sputum, Wheezing. Denies: Shortness of Breath Cardiovascular: Reports: No Symptoms. Denies: Chest Pain, Palpitations, Dyspnea on Exertion Gastrointestinal: Reports: Abdominal Pain (RQU), Vomiting (x1 after drinking coffee ). Denies: Constipation, Diarrhea, Nausea Genitourinary: Reports: No Symptoms. Denies: Pain Musculoskeletal: Reports: No Symptoms Skin: Reports: No Symptoms. Denies: Cyanosis Neurological: Reports: No Symptoms. Denies: Difficulty Walking, Weakness, Gait Disturbance Psychiatric: Reports: No Symptoms - Patient Data Vitals - Most Recent: Last Vital Signs Temp 98.1 F 08/11/19 04:09 Pulse 72 08/11/19 04:12 Resp 20 08/11/19 04:09 BP 118/77 08/11/19 04:09 Pulse Ox 94 L 08/11/19 06:15 Orthostatic Blood Pressure [ 109/60 Standing] Orthostatic Blood Pressure [ 120/69 Sitting] Orthostatic Blood Pressure [ 120/79 Supine] Weight - Most Recent: 142 lb 4.8 oz I&O - Last 24 Hours: Intake & Output 08/10/19 08/11/19 08/11/19 22:59 06:59 14:59 Intake Total 1040 800 Balance 1040 800 Lab Results Last 24 Hours: Laboratory Results - last 24 hr 08/09/19 08/11/19 08/11/19 Range/Units 21:10 05:33 05:33 WBC 7.31 (4.23-9.07) K/mm3 RBC 3.81 L (4.63-6.08) M/mm3 Hgb 12.2 L (13.7-17.5) gm/dl Hct 37.6 L (40.1-51.0) % MCV 98.7 H (79.0-92.2) fl MCH 32.0 (25.7-32.2) pg MCHC 32.4 (32.2-35.5) g/dl RDW Std Deviation 45.8 H (35.1-43.9) fL Plt Count 242 (163-337) K/mm3 MPV 9.0 L (9.4-12.3) fl Neut % (Auto) 65.2 (34.0-67.9) % Lymph % (Auto) 17.8 L (21.8-53.1) % [place] % (Auto) 14.2 H (5.3-12.2) % Eos % (Auto) 1.5 (0.8-7.0) Baso % (Auto) 0.5 (0.1-1.2) % Neut # (Auto) 4.76 (1.78-5.38) K/mm3 Lymph # (Auto) 1.30 L (1.32-3.57) K/mm3 [place] # (Auto) 1.04 H (0.30-0.82) K/mm3 Eos # (Auto) 0.11 (0.04-0.54) K/mm3 Baso # (Auto) 0.04 (0.01-0.08) K/mm3 Manual Slide Review Abnormal smear Sodium 138 (136-145) mEq/L Potassium 4.5 (3.5-5.1) mEq/L Chloride 104 (98-107) mEq/L Carbon Dioxide 28 (21-32) mEq/L Anion Gap 10.5 (5-15) BUN 6 L (7-18) mg/dL Creatinine 0.7 (0.7-1.3) mg/dL Est Cr Clr Drug Dosing 89.65 mL/min Estimated GFR (MDRD) > 60 (>60) mL/min BUN/Creatinine Ratio 8.6 L (14-18) Glucose 89 (80-115) mg/dL Calcium 7.8 L (8.5-10.1) mg/dL Magnesium 1.7 L (1.8-2.4) mg/dl Procalcitonin 0.11 H (<0.10) ng/mL Dmitriy Results Last 24 Hours: Microbiology 08/07/19 18:45 Aerobic Blood Culture - Preliminary Blood - Venous - Lab Draw NO GROWTH AFTER 3 DAYS Anaerobic Blood Culture - Preliminary NO GROWTH AFTER 3 DAYS 08/07/19 18:35 Aerobic Blood Culture - Preliminary Blood - Venous NO GROWTH AFTER 3 DAYS Anaerobic Blood Culture - Preliminary NO GROWTH AFTER 3 DAYS Med Orders - Current: Current Medications Acetaminophen (Tylenol) 650 mg PO Q4H PRN PRN Reason: Pain (Mild 1-3)/fever Benzonatate (Tessalon Perles) 100 mg PO BID [facility] Last Admin: 08/10/19 21:30 Dose: 100 mg Benztropine Mesylate (Cogentin) 1 mg PO BEDTIME [facility] Last Admin: 08/10/19 21:31 Dose: 1 mg Guaifenesin (Mucinex) 600 mg PO BID [facility] Last Admin: 08/10/19 21:30 Dose: 600 mg Azithromycin 500 mg/ Sodium (Chloride) 250 mls @ 250 mls/hr IV Q24H [facility] Last Admin: 08/10/19 22:08 Dose: 250 mls/hr Ceftriaxone Sodium 2 gm/ (Sodium Chloride) 100 mls @ 200 mls/hr IV Q24H [facility] Last Admin: 08/10/19 21:25 Dose: 200 mls/hr Ipratropium Kiefer (Atrovent) 0.5 mg NEB Q4HRRT [facility] Last Admin: 08/11/19 06:15 Dose: 0.5 mg Methadone HCl (Methadone) 5 mg PO BID [facility] Last Admin: 08/10/19 21:30 Dose: 5 mg Nicotine (Habitrol) 21 mg TRDERM DAILY [facility] Last Admin: 08/10/19 09:23 Dose: 21 mg Ondansetron HCl (Zofran Odt) 4 mg PO Q6H PRN PRN Reason: nausea, able to take PO Last Admin: 08/09/19 16:40 Dose: 4 mg Ondansetron HCl (Zofran) 4 mg IVPUSH Q8H PRN PRN Reason: Nausea/Vomiting Oseltamivir Phosphate (Tamiflu) 75 mg PO BID [facility] Last Admin: 08/10/19 21:30 Dose: 75 mg Risperidone (Risperidal) 2 mg PO BEDTIME [facility] Last Admin: 08/10/19 21:31 Dose: 2 mg Risperidone (Risperidal) 1 mg PO DAILY [facility] Last Admin: 08/10/19 09:21 Dose: 1 mg Sodium Chloride (Saline Flush) 10 ml FLUSH ASDIRECTED PRN PRN Reason: Keep Vein Open Last Admin: 03/15/20 17:21 Dose: 10 ml Trazodone HCl (Trazodone) 50 mg PO BEDTIME [facility] Last Admin: 08/10/19 21:31 Dose: 50 mg Discontinued Medications Ceftriaxone Sodium (Rocephin) Confirm Administered Dose 2 gm IV .STK-MED ONE Stop: 08/07/19 19:45 Last Admin: 08/07/19 19:51 Dose: Not Given Guaifenesin (Mucinex) 600 mg PO BID [facility] Last Admin: 08/08/19 12:51 Dose: Not Given Sodium Chloride (Normal Saline) 1,000 mls @ 150 mls/hr IV ASDIRECTED [facility] Last Admin: 08/08/19 06:02 Dose: 150 mls/hr Ceftriaxone Sodium 2 gm/ (Sodium Chloride) 100 mls @ 200 mls/hr IV ONETIME ONE Stop: 08/07/19 20:00 Last Admin: 08/07/19 19:47 Dose: Not Given Magnesium Sulfate 2 gm/ Premix 50 mls @ 25 mls/hr IV ONETIME ONE Stop: 08/07/19 21:42 Last Admin: 08/07/19 20:24 Dose: 25 mls/hr Ceftriaxone Sodium 2 gm/ (Sodium Chloride) 100 mls @ 200 mls/hr IV Q24H STA Stop: 08/07/19 20:15 Last Admin: 08/07/19 19:49 Dose: 200 mls/hr Sodium Chloride (Normal Saline) Confirm Administered Dose 100 mls @ as directed .ROUTE .STK-MED ONE Stop: 08/07/19 19:45 Last Admin: 08/07/19 19:51 Dose: Not Given Sodium Chloride (Normal Saline) 1,000 mls @ 75 mls/hr IV ASDIRECTED [facility] Sodium Phosphate 30 mmole/ (Sodium Chloride) 260 mls @ 130 mls/hr IV Q2H EDMOND Stop: 08/10/19 15:59 Last Admin: 08/10/19 15:12 Dose: 130 mls/hr Influenza Virus Vaccine (Pharmacy To Dose - Influenza Vaccine) 1 each IM ONETIME ONE Stop: 08/07/19 22:46 Influenza Virus Vaccine (Fluzone High-Dose Syringe) 180 mcg IM .ONCE ONE Stop: 08/08/19 10:01 Ondansetron HCl (Zofran) 4 mg IVPUSH ONETIME ONE Stop: 08/07/19 16:51 Last Admin: 08/07/19 17:20 Dose: 4 mg Ondansetron HCl (Zofran) 4 mg IVPUSH ONETIME ONE Stop: 08/07/19 19:12 Last Admin: 08/07/19 19:51 Dose: 4 mg Ondansetron HCl (Zofran) 4 mg IV Q6H [facility] Last Admin: 08/08/19 06:03 Dose: Not Given Ondansetron HCl (Zofran) 4 mg IV Q6H [facility] Last Admin: 08/08/19 12:40 Dose: 4 mg - Exam Quality Assessment: DVT Prophylaxis General: Alert, Oriented, Cooperative, No Acute Distress HEENT: Pupils Equal, Pupils Reactive, Mucous Membr. Moist/[place] Neck: Supple, Trachea Midline Lungs: Clear to Auscultation, Normal Respiratory Effort Cardiovascular: Regular Rate, Regular Rhythm GI/Abdominal Exam: Normal Bowel Sounds, Soft, No Distention, No Abnormal Bruit, Tender (Tender area over rigid lump in RUQ). No: Mass (Approximately 5cm rigid area in RUQ. Patient reports palpation is painful. ) (Male) Exam: Deferred Back Exam: Normal Inspection, Full Range of Motion Extremities: Normal Inspection, Normal Range of Motion, Non-Tender, No Pedal Edema, Normal Capillary Refill Peripheral Pulses: 2+: Radial (L), Radial (R), Dorsalis Pedis (L), Dorsalis Pedis (R) Skin: Warm, Dry, Intact Neurological: No New Focal Deficit Psy/Mental Status: Alert Sepsis Event Note - Evaluation Sepsis Screening Result: No Definite Risk - Focused Exam Vital Signs: Vital Signs Temp Pulse Resp BP Pulse Ox Pulse Ox 08/11/19 06:15 94 L 08/11/19 04:12 72 93 L 08/11/19 04:09 98.1 F 73 20 118/77 87 L 08/11/19 02:05 94 L 08/10/19 22:28 94 L 08/10/19 21:33 86 92 L 08/10/19 21:22 98.6 F 80 20 121/73 87 L Date Exam was Performed: 08/11/19 Time Exam was Performed: 15:20 - Problem List & Annotations (1) Acute hypoxemic respiratory failure SNOMED Code(s): 119221649 Code(s): J96.01 - ACUTE RESPIRATORY FAILURE WITH HYPOXIA Status: Acute Priority: High Current Visit: Yes (2) Chronic pain SNOMED Code(s): 37467989 Code(s): G89.29 - OTHER CHRONIC PAIN Status: Chronic Priority: Medium Current Visit: Yes Qualifiers: Chronic pain type: other chronic pain Qualified Code(s): G89.29 - Other chronic pain (3) Hypoalbuminemia SNOMED Code(s): 476828995 Code(s): E88.09 - OTH DISORDERS OF PLASMA-PROTEIN METABOLISM, NEC Status: Acute Priority: High Current Visit: Yes (4) Hypomagnesemia SNOMED Code(s): 731716068 Code(s): E83.42 - HYPOMAGNESEMIA Status: Resolved Priority: High Current Visit: Yes (5) Hyponatremia SNOMED Code(s): 35026698 Code(s): E87.1 - HYPO-OSMOLALITY AND HYPONATREMIA Status: Resolved Priority: High Current Visit: Yes (6) Hypophosphatemia SNOMED Code(s): 3110736 Code(s): E83.39 - OTHER DISORDERS OF PHOSPHORUS METABOLISM Status: Resolved Priority: High Current Visit: Yes (7) Intractable nausea and vomiting SNOMED Code(s): 474027595 Code(s): R11.2 - NAUSEA WITH VOMITING, UNSPECIFIED Status: Resolved Priority: High Current Visit: Yes (8) Leukocytosis SNOMED Code(s): 923715910, 348968283 Code(s): D72.829 - ELEVATED WHITE BLOOD CELL COUNT, UNSPECIFIED Status: Acute Priority: High Current Visit: Yes Qualifiers: Leukocytosis type: unspecified Qualified Code(s): D72.829 - Elevated white blood cell count, unspecified (9) Lung nodule SNOMED Code(s): 920905063 Code(s): R91.1 - SOLITARY PULMONARY NODULE Status: Acute Priority: High Current Visit: Yes (10) Macrocytosis without anemia SNOMED Code(s): 338186054 Code(s): D75.89 - OTHER SPECIFIED DISEASES OF BLOOD AND BLOOD-FORMING ORGANS Status: Acute Priority: High Current Visit: Yes (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 Code(s): 22097839, 037817972 Code(s): F11.20 - OPIOID DEPENDENCE, UNCOMPLICATED Status: Chronic Priority: Medium Current Visit: Yes (12) Pneumonia SNOMED Code(s): 631971009 Code(s): J18.9 - PNEUMONIA, UNSPECIFIED ORGANISM Status: Acute Priority: High Current Visit: Yes Qualifiers: Pneumonia type: due to unspecified organism Laterality: unspecified laterality Lung location: unspecified part of lung Qualified Code(s): J18.9 - Pneumonia, unspecified organism (13) Productive cough SNOMED Code(s): 31588063, 282547309, 979733615 Code(s): R05 - COUGH Status: Acute Priority: High Current Visit: Yes (14) Schizophrenia SNOMED Code(s): 75255330 Code(s): F20.9 - SCHIZOPHRENIA, UNSPECIFIED Status: Chronic Priority: Medium Current Visit: Yes Qualifiers: Schizophrenia type: unspecified Qualified Code(s): F20.9 - Schizophrenia, unspecified (15) Smoker SNOMED Code(s): 63006875 Code(s): F17.200 - NICOTINE DEPENDENCE, UNSPECIFIED, UNCOMPLICATED Status: Chronic Priority: Medium Current Visit: Yes (16) Tachycardia SNOMED Code(s): 6931501 Code(s): R00.0 - TACHYCARDIA, UNSPECIFIED Status: Resolved Priority: High Current Visit: Yes - Problem List Review Problem List Initiated/Reviewed/Updated: Yes - Plan Plan:: Pneumonia Acute hypoxemic respiratory failure Emphysema Chronic cough, acutely worsening in past week Associated with fever - none on floor CXR with infiltrate in posterior lobes 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 - regular diet, thin liquids PLAN - Azithromycin, Tamiflu and Rocephin - Atrovent q4h - Incentive spirometer/Acapella - ABG as needed - Goal SatO2 > 88% - Sputum culture Lung nodule, right lung Active Smoker Smokes 2/4ppd > 40y PLAN - Nicotine patch Schizophrenia Home management with Trazodone, Risperdal and Benztropine PLAN - Let me sleep protocol as much as possible - Continue home medications Chronic pain Methadone maintenance therapy patient Denies any current pain PLAN - Continue methadone Muscle wasting Hypoalbuminemia Macrocytosis without anemia Significant muscle wasting Vitamin B12 level and folic acid level WNL Pre-albumin low PLAN - Dietary consult Hypophosphatemia PLAN - Supplement Vomiting Initially presented with intractable nausea and vomiting Has been stable since admission, vomited x1 on 08/11/19 after drinking coffee Tender knob in RUQ noted on physical exam - ? Porcelain gallbladder PLAN - Abdominal X-ray - Consider CT scan if needed - Antiemetics - R/O developing SBO S/P Hyponatremia/Hypomagnesemia PROPHYLAXIS DVT- compression stockings GI- not indicated CODE STATUS: FULL CODE DISPOSITION: Patient will be admitted for O2 supplementation and IV antibiotics as well as scheduled nebulizations and IVF supplementations. Likely discharge 08/12/19 pending workup for nausea and vomiting.
[2019-08-11] MEDS ORDERED: Magnesium Sulfate/Water 2 GM in Premix Bag 1 BAG IV ONE (09:09)
[2019-08-11] MEDS: Nicotine 21 MG/24 Hr Patch TRDERM SCH (09:39)
[2019-08-11] MEDS: Oseltamivir 75 MG Cap PO SCH ×2 (09:40→21:08)
[2019-08-11] MEDS: Methadone 5 MG Tab PO SCH ×2 (09:40→21:05)
[2019-08-11] MEDS: Benzonatate 100 MG Cap PO SCH ×2 (09:40→21:08)
[2019-08-11] MEDS: guaiFENesin 600 MG Tab.ER PO SCH ×2 (09:40→21:07)
[2019-08-11] MEDS: risperiDONE 1 MG Tab PO SCH ×2 (09:41→21:04)
[2019-08-11] MEDS: Ondansetron 4 MG/2 ML SDV IVPUSH PRN (15:11)
--- NOTE | 2019-08-11 15:28 | CR ---
Abdomen: Upright view the abdomen was obtained. Comparison: Prior chest x-ray of 08/07/[address] chest abdomen pelvis study of 09/14/12. Stable mass within the left chest is seen. Second nodule is noted on the right side which is not seen on prior chest CT. This finding appears to be present on recent chest x-ray but appears more obscured from overlapping lung markings on the recent chest x-ray. Slightly prominent loops of small bowel are noted. Air-fluid level seen on the upright view. These findings are suspicious for a distal developing small bowel obstruction. 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 This is an interval change from prior CT study. Bony structures are osteopenic. No free air is seen. Impression: 1. Mass within the left chest which is stable from old chest CT. Nodule within the right lung not seen on prior chest CT, recommend follow-up noncontrast chest CT at sometime in the future. 2. Findings suspicious for porcelain gallbladder. CT would be confirmatory. 3. Findings suspicious for developing distal small bowel obstruction. Diagnostic code #3 Study was dictated in MDT
[2019-08-11] MEDS: Albuterol/Ipratropium 3.0-0.5 MG/3 ML Neb Soln NEB SCH ×2 (15:59→20:27)
[2019-08-11] MEDS ORDERED: Sodium Chloride 0.9% 10 ML Syringe FLUSH ONE (16:41)
[2019-08-11] MEDS ORDERED: Iopamidol 612 MG/ML 100 ML Bottle IVPUSH ONE (16:41)
[2019-08-11] MEDS ORDERED: Diatrizoate Meglumine/Diatrizoate Sodium 37% 120 ML Bottle PO ONE (16:41)
[2019-08-11] MEDS: Sodium Chloride 0.9% 10 ML Syringe FLUSH PRN ×2 (16:43→16:44)
--- NOTE | 2019-08-11 17:15 | CT ---
CT chest Technique: Multiple axial sections were obtained from above the lung apices inferiorly through the lung bases. Intravenous contrast was utilized. Comparison: Prior abdominal x-ray performed earlier on the same day (2:49 PM) prior CT chest abdomen pelvis study of 09/14/12 is also available. Findings: Severe emphysematous change is noted throughout both lungs. Mass is noted within the left base measuring around 3.0 cm which is stable from previous chest CT. Consolidation is noted within the right lung base with several air bronchograms. Slight parenchymal density is seen within the left base. No right-sided nodule is seen as suggested on prior abdominal x-ray. Mediastinum and hilar regions show no adenopathy. Atherosclerotic calcification is seen within the aorta without aneurysm. Coronary artery calcification is seen. No pericardial thickening is seen. Impression: 1. Severe emphysematous change. 2. Stable 3 cm mass within the left lung base. 3. No right-sided nodule is seen as noted on prior x-ray. 4. Consolidation within the right lung base with minimal density within the left base. Please correlate if patient has any symptoms of pneumonia. Diagnostic code #3 CT abdomen and pelvis Technique: Multiple axial sections were obtained from above the dome of the diaphragm inferiorly through the pubic symphysis. Intravenous and oral contrast was utilized. Findings: Liver contains no focal abnormality. Small adrenal nodule is noted on the left side which is stable. Larger right adrenal mass is seen which is also stable. Gallbladder shows no calcified gallstones. Rim calcified object is seen within the right anterior abdomen which is stable from prior CT exam and uncertain as to etiology but felt to be benign since it is stable. Spleen appears within normal limits. Kidneys show symmetric contrast enhancement. Aorta shows atherosclerotic change which continues into the iliac vessels. No aneurysm is seen. Dilated small bowel loops are seen. Distal ileal loops are decompressed. Findings compatible with a mid to distal small bowel obstruction with transition point felt to be present within the lower abdomen. No pelvic mass or adenopathy is seen. Appendix not visualized with certainty. No free fluid or inflammatory change is seen. Mild increased stool is noted throughout the colon. Bone window settings were reviewed which shows scattered degenerative change within the spine. Impression: 1. Rim calcified lesion within the upper right abdomen which does not represent the gallbladder. Uncertain as to etiology of this finding but this is unchanged from prior exam and is therefore felt to be benign. 2. Bilateral nodules within the adrenal glands which are stable. 3. Mild increased stool throughout the colon. 4. Small bowel dilatation with decompressed distal ileal loops. Findings are felt compatible with mid to distal small bowel obstruction. Etiology for the obstruction is not seen on this exam and findings most likely due to adhesion. 5. Other findings as noted above believed to be incidental and not acute. Diagnostic code #3 Study was dictated in MDT
[2019-08-11] MEDS ORDERED: Sodium Chloride 0.9% 1,000 ML ONE (17:33)
[2019-08-11] MEDS: Sodium Chloride 0.9% 1,000 ML IV SCH (17:43)
--- NOTE | 2019-08-11 18:53 | PCM.HP.2 ---
H&P History of Present Illness - General Date of Service: 08/11/19 Admit Problem/Dx: Admission Diagnosis/Problem Admission Diagnosis/Problem Pneumonia involving left lung Source of Information: Patient, Provider History Limitations: Reports: Other (dementia and schizophrenia) - History of Present Illness Initial Comments - Free Text/Narative: Patient was admitted on 08/06 for nausea and vomiting and PO intolerance. He was found to have PNA and treated for this. While in the hospital, he was tolerating diet. But today, while planning for discharge he vomited. Ct scan was done and revealed concern for SBO leading to surgical consultation. I talked to the patient, he endorsed vomiting episodes in the past. he reports lack of stools for 1.5 days. He denies abdominal pain. Onset of Symptoms: Reports: Today Duration of Symptoms: Reports: Intermittent Location: Reports: Abdomen Quality: Reports: Other Improves with: Reports: None Worsens with: Reports: None Associated Symptoms: Reports: No Other Symptoms Right Abdomen Pain Score (Numeric/FACES): 0 - Related Data Allergies/Adverse Reactions: Allergies Allergy/AdvReac Type Severity Reaction Status Date / Time No Known Allergies Allergy Verified 08/07/19 22:18 Home Medications: Home Meds Omeprazole 20 mg PO DAILY 08/07/19 [History] Acetaminophen [Tylenol Extra Strength] 500 mg PO Q12HR PRN 08/08/19 [History] Benztropine [Cogentin] 1 mg PO BEDTIME 08/08/19 [History] Methadone 5 mg PO BID 08/08/19 [History] risperiDONE 1 mg PO DAILY 08/08/19 [History] risperiDONE [Risperdal] 2 mg PO BEDTIME 08/08/19 [History] traZODone HCl [Trazodone HCl] 50 mg PO BEDTIME 08/08/19 [History] Past Medical History HEENT History: Reports: Other (See Below) Other HEENT History: wears glasses, has no natural teeth and does not have a set of dentures Gastrointestinal History: Reports: Other (See Below) Other Gastrointestinal History: paracentesis Psychiatric History: Reports: Schizophrenia Dermatologic History: Reports: Other (See Below) Other Dermatologic History: reports rash to buttocks - Infectious Disease History Infectious Disease History: Reports: Other (See Below) - Past Surgical History HEENT Surgical History: Reports: DONOVAN Dermatological Surgical History: Reports: None Social & Family History - Family History Family Medical History: Noncontributory - Tobacco Use Smoking Status *Q: Current Every Day Smoker Years of Tobacco use: 53 Packs/Tins Daily: 0.7 Used Tobacco, but Quit: No Second Hand Smoke Exposure: No - Caffeine Use Caffeine Use: Reports: Coffee, Soda Other Caffeine Use: 5-6 a day. a pop once in awhile - Recreational Drug Use Recreational Drug Use: No H&P Review of Systems - Review of Systems: Review Of Systems: See Below (due to patient's schizophrenia and dementia) Exam - Exam Exam: See Below - Vital Signs Vital Signs: Last Vital Signs Temp 97.5 F 08/11/19 15:07 Pulse 86 08/11/19 15:07 Resp 16 08/11/19 15:07 BP 114/65 08/11/19 15:07 Pulse Ox 96 08/11/19 15:59 Orthostatic Blood Pressure [ 109/60 Standing] Orthostatic Blood Pressure [ 120/69 Sitting] Orthostatic Blood Pressure [ 120/79 Supine] Weight: 64.546 kg - Exam General: Alert, Cooperative HEENT: Conjunctiva Clear Lungs: Clear to Auscultation, Normal Respiratory Effort Cardiovascular: Regular Rate, Regular Rhythm, Normal S1, Normal S2 GI/Abdominal Exam: Normal Bowel Sounds, Soft, Non-Tender, Distended - Patient Data Lab Results Last 24 hrs: Laboratory Results - last 24 hr 08/09/19 08/11/19 08/11/19 Range/Units 21:10 05:33 05:33 WBC 7.31 (4.23-9.07) K/mm3 RBC 3.81 L (4.63-6.08) M/mm3 Hgb 12.2 L (13.7-17.5) gm/dl Hct 37.6 L (40.1-51.0) % MCV 98.7 H (79.0-92.2) fl MCH 32.0 (25.7-32.2) pg MCHC 32.4 (32.2-35.5) g/dl RDW Std Deviation 45.8 H (35.1-43.9) fL Plt Count 242 (163-337) K/mm3 MPV 9.0 L (9.4-12.3) fl Neut % (Auto) 65.2 (34.0-67.9) % Lymph % (Auto) 17.8 L (21.8-53.1) % [place] % (Auto) 14.2 H (5.3-12.2) % Eos % (Auto) 1.5 (0.8-7.0) Baso % (Auto) 0.5 (0.1-1.2) % Neut # (Auto) 4.76 (1.78-5.38) K/mm3 Lymph # (Auto) 1.30 L (1.32-3.57) K/mm3 [place] # (Auto) 1.04 H (0.30-0.82) K/mm3 Eos # (Auto) 0.11 (0.04-0.54) K/mm3 Baso # (Auto) 0.04 (0.01-0.08) K/mm3 Manual Slide Review Abnormal smear Sodium 138 (136-145) mEq/L Potassium 4.5 (3.5-5.1) mEq/L Chloride 104 (98-107) mEq/L Carbon Dioxide 28 (21-32) mEq/L Anion Gap 10.5 (5-15) BUN 6 L (7-18) mg/dL Creatinine 0.7 (0.7-1.3) mg/dL Est Cr Clr Drug Dosing 89.65 mL/min Estimated GFR (MDRD) > 60 (>60) mL/min BUN/Creatinine Ratio 8.6 L (14-18) Glucose 89 (80-115) mg/dL Calcium 7.8 L (8.5-10.1) mg/dL Magnesium 1.7 L (1.8-2.4) mg/dl Procalcitonin 0.11 H (<0.10) ng/mL Result Diagrams: 08/11/19 05:33 08/11/19 05:33 Dmitriy Results Last 24 hrs: Microbiology 08/07/19 18:45 Aerobic Blood Culture - Preliminary Blood - Venous - Lab Draw NO GROWTH AFTER 3 DAYS Anaerobic Blood Culture - Preliminary NO GROWTH AFTER 3 DAYS 08/07/19 18:35 Aerobic Blood Culture - Preliminary Blood - Venous NO GROWTH AFTER 3 DAYS Anaerobic Blood Culture - Preliminary NO GROWTH AFTER 3 DAYS Sepsis Event Note - Evaluation Sepsis Screening Result: No Definite Risk - Focused Exam Vital Signs: Vital Signs Temp Pulse Resp BP Pulse Ox Pulse Ox Pulse Ox 08/11/19 15:59 96 08/11/19 15:07 97.5 F 86 16 114/65 95 08/11/19 13:29 93 L 08/11/19 09:16 91 L 08/11/19 08:52 86 L 08/11/19 08:26 94 L 08/11/19 08:11 97.9 F 66 16 92/55 L 97 Date Exam was Performed: 08/11/19 Time Exam was Performed: 18:47 Problem List Initiated/Reviewed/Updated: No Orders Last 24hrs: Active Orders 24 hr Category Date Time Status Ambulate [RC] ASDIRECTED Care 08/11/19 17:12 Active Communication Order [RC] ROUTINE Care 08/11/19 17:13 Active Evaluate for Home Oxygen [RT Evaluate for Home Oxygen] Care 08/11/19 13:09 Active [RC] Click to Edit Notify Provider Consults [RC] ASDIRECTED Care 08/11/19 17:22 Active RT Aerosol Therapy [RC] ASDIRECTED Care 08/11/19 15:54 Active Consult to Physician [CONS] Routine Cons 08/11/19 17:21 Active NPO Now [Nothing per Oral Now Diet] [DIET] Diet 08/11/19 Dinner Active BASIC METABOLIC PANEL,BMP [CHEM] AM Lab 08/12/19 05:11 Ordered BASIC METABOLIC PANEL,BMP [CHEM] AM Lab 08/13/19 05:11 Ordered BASIC METABOLIC PANEL,BMP [CHEM] AM Lab 08/14/19 05:11 Ordered BASIC METABOLIC PANEL,BMP [CHEM] AM Lab 08/15/19 05:11 Ordered CBC WITH AUTO DIFF [HEME] AM Lab 08/12/19 05:11 Ordered CBC WITH AUTO DIFF [HEME] AM Lab 08/13/19 05:11 Ordered CBC WITH AUTO DIFF [HEME] AM Lab 08/14/19 05:11 Ordered CBC WITH AUTO DIFF [HEME] AM Lab 08/15/19 05:11 Ordered MAGNESIUM [CHEM] AM Lab 08/12/19 05:11 Ordered MAGNESIUM [CHEM] AM Lab 08/13/19 05:11 Ordered MAGNESIUM [CHEM] AM Lab 08/14/19 05:11 Ordered MAGNESIUM [CHEM] AM Lab 08/15/19 05:11 Ordered PROCALCITONIN [REF] Q48H Lab 08/11/19 05:33 Stop Req Albuterol/Ipratropium [DuoNeb 3.0-0.5 MG/3 ML] Med 08/11/19 16:00 Active 3 ml NEB QIDRT Azithromycin [Zithromax] Med 08/11/19 21:00 Active 250 mg PO BEDTIME Cefdinir [Omnicef] Med 08/11/19 21:00 Active 300 mg PO BID Sodium Chloride 0.9% [Normal Saline] 1,000 ml Med 08/11/19 17:30 Active IV ASDIRECTED Medication Orders Acetaminophen (Tylenol) 650 mg PO Q4H PRN PRN Reason: Pain (Mild 1-3)/fever Albuterol/Ipratropium (Duoneb 3.0-0.5 Mg/3 Ml) 3 ml NEB QIDRT [facility] Last Admin: 08/11/19 15:59 Dose: 3 ml Azithromycin (Zithromax) 250 mg PO BEDTIME [facility] Benzonatate (Tessalon Perles) 100 mg PO BID [facility] Last Admin: 08/11/19 09:40 Dose: 100 mg Admin: 08/10/19 21:30 Dose: 100 mg Admin: 08/10/19 09:23 Dose: 100 mg Admin: 08/09/19 20:12 Dose: 100 mg Admin: 08/09/19 09:24 Dose: 100 mg Admin: 08/08/19 21:21 Dose: 100 mg Admin: 08/08/19 12:40 Dose: 100 mg Benztropine Mesylate (Cogentin) 1 mg PO BEDTIME [facility] Last Admin: 08/10/19 21:31 Dose: 1 mg Admin: 08/09/19 20:11 Dose: 1 mg Admin: 08/08/19 21:21 Dose: 1 mg Cefdinir (Omnicef) 300 mg PO BID [facility] Guaifenesin (Mucinex) 600 mg PO BID [facility] Last Admin: 08/11/19 09:40 Dose: 600 mg Admin: 08/10/19 21:30 Dose: 600 mg Admin: 08/10/19 09:23 Dose: 600 mg Admin: 08/09/19 20:08 Dose: 600 mg Admin: 08/09/19 09:24 Dose: 600 mg Admin: 08/08/19 21:21 Dose: 600 mg Admin: 08/08/19 09:45 Dose: 600 mg Sodium Chloride (Normal Saline) 1,000 mls @ 75 mls/hr IV ASDIRECTED [facility] Last Admin: 08/11/19 17:43 Dose: 75 mls/hr Methadone HCl (Methadone) 5 mg PO BID [facility] Last Admin: 08/11/19 09:40 Dose: 5 mg Admin: 08/10/19 21:30 Dose: 5 mg Admin: 08/10/19 09:21 Dose: 5 mg Admin: 08/09/19 20:09 Dose: 5 mg Admin: 08/09/19 09:24 Dose: 5 mg Admin: 08/08/19 21:22 Dose: 5 mg Nicotine (Habitrol) 21 mg TRDERM DAILY [facility] Last Admin: 08/11/19 09:39 Dose: 21 mg Admin: 08/10/19 09:23 Dose: 21 mg Admin: 08/09/19 09:23 Dose: 21 mg Admin: 08/08/19 09:45 Dose: 21 mg Ondansetron HCl (Zofran Odt) 4 mg PO Q6H PRN PRN Reason: nausea, able to take PO Last Admin: 08/09/19 16:40 Dose: 4 mg Ondansetron HCl (Zofran) 4 mg IVPUSH Q8H PRN PRN Reason: Nausea/Vomiting Last Admin: 08/11/19 15:11 Dose: 4 mg Oseltamivir Phosphate (Tamiflu) 75 mg PO BID [facility] Stop: 08/12/19 09:01 Last Admin: 08/11/19 09:40 Dose: 75 mg Admin: 08/10/19 21:30 Dose: 75 mg Admin: 08/10/19 09:21 Dose: 75 mg Admin: 08/09/19 20:08 Dose: 75 mg Admin: 08/09/19 09:26 Dose: 75 mg Admin: 08/08/19 21:21 Dose: 75 mg Admin: 08/08/19 09:45 Dose: 75 mg Admin: 08/08/19 00:27 Dose: 75 mg Risperidone (Risperidal) 2 mg PO BEDTIME [facility] Last Admin: 08/10/19 21:31 Dose: 2 mg Admin: 08/09/19 20:09 Dose: 2 mg Admin: 08/08/19 21:21 Dose: 2 mg Risperidone (Risperidal) 1 mg PO DAILY [facility] Last Admin: 08/11/19 09:41 Dose: 1 mg Admin: 08/10/19 09:21 Dose: 1 mg Admin: 08/09/19 09:26 Dose: 1 mg Sodium Chloride (Saline Flush) 10 ml FLUSH ASDIRECTED PRN PRN Reason: Keep Vein Open Last Admin: 08/11/19 16:44 Dose: 10 ml Admin: 08/11/19 16:43 Dose: 10 ml Admin: 08/07/19 17:21 Dose: 10 ml Trazodone HCl (Trazodone) 50 mg PO BEDTIME [facility] Last Admin: 08/10/19 21:31 Dose: 50 mg Admin: 08/09/19 20:12 Dose: 50 mg Admin: 08/08/19 21:21 Dose: 50 mg Assessment/Plan Comment:: SBO - Keep NPO, NGT will be preferred but patient is schizophrenic so may not keep NGT. Patient verbalized that he does not want surgery, but will discuss with family when available - IVF - check daily BMP including Phos and Mag. Replenish Phos to normal, Mag to >2, K to 4. - Minimize narcotics - Will follow - Mortality Measure Prognosis:: Good
[2019-08-11] MEDS ORDERED: Azithromycin 250 MG Tab PO SCH (21:00)
[2019-08-11] MEDS: traZODone 50 MG Tab PO SCH (21:04)
[2019-08-11] MEDS: Cefdinir 300 MG Cap PO SCH (21:05)
[2019-08-11] MEDS: Benztropine 1 MG Tab PO SCH (21:07)
[2019-08-12] MEDS: Albuterol/Ipratropium 3.0-0.5 MG/3 ML Neb Soln NEB SCH ×4 (06:06→20:25)
--- NOTE | 2019-08-12 08:01 | PCM.PN ---
- General Info Date of Service: 08/12/19 Admission Dx/Problem (Free Text): Admission Diagnosis/Problem Admission Diagnosis/Problem Pneumonia involving left lung Functional Status: Reports: Pain Controlled, Ambulating, Urinating. Denies: Tolerating Diet (NPO), New Symptoms - Review of Systems General: Reports: No Symptoms. Denies: Fever, Weakness, Fatigue, Malaise, Chills HEENT: Reports: No Symptoms. Denies: Headaches, Sore Throat Pulmonary: Reports: No Symptoms, Cough. Denies: Shortness of Breath, Sputum, Wheezing Cardiovascular: Reports: No Symptoms Gastrointestinal: Reports: Abdominal Pain (mild RUQ). Denies: Constipation, Diarrhea, Flatus, Nausea, Vomiting Genitourinary: Reports: No Symptoms. Denies: Pain Musculoskeletal: Reports: No Symptoms Skin: Reports: No Symptoms. Denies: Cyanosis Neurological: Reports: No Symptoms. Denies: Difficulty Walking, Gait Disturbance Psychiatric: Reports: No Symptoms - Patient Data Vitals - Most Recent: Last Vital Signs Temp 97.9 F 08/11/19 21:00 Pulse 76 08/12/19 05:52 Resp 20 08/12/19 05:52 BP 109/72 08/12/19 05:52 Pulse Ox 92 L 08/12/19 06:08 Orthostatic Blood Pressure [ 109/60 Standing] Orthostatic Blood Pressure [ 120/69 Sitting] Orthostatic Blood Pressure [ 120/79 Supine] Weight - Most Recent: 139 lb 3.2 oz I&O - Last 24 Hours: Intake & Output 08/11/19 08/12/19 08/12/19 22:59 06:59 14:59 Intake Total 50 1017 Balance 50 1017 Lab Results Last 24 Hours: Laboratory Results - last 24 hr 08/11/19 08/12/19 08/12/19 Range/Units 05:33 05:25 05:25 WBC 7.93 (4.23-9.07) K/mm3 RBC 3.82 L (4.63-6.08) M/mm3 Hgb 12.2 L (13.7-17.5) gm/dl Hct 37.7 L (40.1-51.0) % MCV 98.7 H (79.0-92.2) fl MCH 31.9 (25.7-32.2) pg MCHC 32.4 (32.2-35.5) g/dl RDW Std Deviation 45.9 H (35.1-43.9) fL Plt Count 265 (163-337) K/mm3 MPV 9.1 L (9.4-12.3) fl Neut % (Auto) 68.3 H (34.0-67.9) % Lymph % (Auto) 16.5 L (21.8-53.1) % [place] % (Auto) 12.9 H (5.3-12.2) % Eos % (Auto) 1.0 (0.8-7.0) Baso % (Auto) 0.4 (0.1-1.2) % Neut # (Auto) 5.42 H (1.78-5.38) K/mm3 Lymph # (Auto) 1.31 L (1.32-3.57) K/mm3 [place] # (Auto) 1.02 H (0.30-0.82) K/mm3 Eos # (Auto) 0.08 (0.04-0.54) K/mm3 Baso # (Auto) 0.03 (0.01-0.08) K/mm3 Manual Slide Review Normal smear Sodium 137 (136-145) mEq/L Potassium 4.9 (3.5-5.1) mEq/L Chloride 104 (98-107) mEq/L Carbon Dioxide 26 (21-32) mEq/L Anion Gap 11.9 (5-15) BUN 6 L (7-18) mg/dL Creatinine 0.7 (0.7-1.3) mg/dL Est Cr Clr Drug Dosing 87.69 mL/min Estimated GFR (MDRD) > 60 (>60) mL/min BUN/Creatinine Ratio 8.6 L (14-18) Glucose 89 (80-115) mg/dL Calcium 8.0 L (8.5-10.1) mg/dL Magnesium 2.0 (1.8-2.4) mg/dl Procalcitonin 0.14 H (<0.10) ng/mL Dmitriy Results Last 24 Hours: Microbiology 08/07/19 18:45 Aerobic Blood Culture - Preliminary Blood - Venous - Lab Draw NO GROWTH AFTER 4 DAYS Anaerobic Blood Culture - Preliminary NO GROWTH AFTER 4 DAYS 08/07/19 18:35 Aerobic Blood Culture - Preliminary Blood - Venous NO GROWTH AFTER 4 DAYS Anaerobic Blood Culture - Preliminary NO GROWTH AFTER 4 DAYS Med Orders - Current: Current Medications Acetaminophen (Tylenol) 650 mg PO Q4H PRN PRN Reason: Pain (Mild 1-3)/fever Albuterol/Ipratropium (Duoneb 3.0-0.5 Mg/3 Ml) 3 ml NEB QIDRT [facility] Last Admin: 08/12/19 06:06 Dose: 3 ml Azithromycin (Zithromax) 250 mg PO BEDTIME [facility] Last Admin: 08/11/19 21:06 Dose: 250 mg Benzonatate (Tessalon Perles) 100 mg PO BID [facility] Last Admin: 08/11/19 21:08 Dose: 100 mg Benztropine Mesylate (Cogentin) 1 mg PO BEDTIME [facility] Last Admin: 08/11/19 21:07 Dose: 1 mg Cefdinir (Omnicef) 300 mg PO BID [facility] Last Admin: 08/11/19 21:05 Dose: 300 mg Guaifenesin (Mucinex) 600 mg PO BID [facility] Last Admin: 08/11/19 21:07 Dose: 600 mg Sodium Chloride (Normal Saline) 1,000 mls @ 75 mls/hr IV ASDIRECTED [facility] Last Admin: 08/11/19 17:43 Dose: 75 mls/hr Methadone HCl (Methadone) 5 mg PO BID [facility] Last Admin: 08/11/19 21:05 Dose: 5 mg Nicotine (Habitrol) 21 mg TRDERM DAILY [facility] Last Admin: 08/11/19 09:39 Dose: 21 mg Ondansetron HCl (Zofran Odt) 4 mg PO Q6H PRN PRN Reason: nausea, able to take PO Last Admin: 08/09/19 16:40 Dose: 4 mg Ondansetron HCl (Zofran) 4 mg IVPUSH Q8H PRN PRN Reason: Nausea/Vomiting Last Admin: 08/11/19 15:11 Dose: 4 mg Oseltamivir Phosphate (Tamiflu) 75 mg PO BID [facility] Stop: 08/12/19 09:01 Last Admin: 08/11/19 21:08 Dose: 75 mg Risperidone (Risperidal) 2 mg PO BEDTIME [facility] Last Admin: 08/11/19 21:04 Dose: 2 mg Risperidone (Risperidal) 1 mg PO DAILY [facility] Last Admin: 08/11/19 09:41 Dose: 1 mg Sodium Chloride (Saline Flush) 10 ml FLUSH ASDIRECTED PRN PRN Reason: Keep Vein Open Last Admin: 08/11/19 16:44 Dose: 10 ml Trazodone HCl (Trazodone) 50 mg PO BEDTIME [facility] Last Admin: 08/11/19 21:04 Dose: 50 mg Discontinued Medications Ceftriaxone Sodium (Rocephin) Confirm Administered Dose 2 gm IV .STK-MED ONE Stop: 08/07/19 19:45 Last Admin: 08/07/19 19:51 Dose: Not Given Diatrizoate Meglum/Diatrizoate Sod (Gastrografin 37%) 90 ml PO ONETIME ONE Stop: 08/11/19 16:42 Last Admin: 08/11/19 16:43 Dose: 90 ml Guaifenesin (Mucinex) 600 mg PO BID [facility] Last Admin: 08/08/19 12:51 Dose: Not Given Sodium Chloride (Normal Saline) 1,000 mls @ 150 mls/hr IV ASDIRECTED [facility] Last Admin: 08/08/19 06:02 Dose: 150 mls/hr Ceftriaxone Sodium 2 gm/ (Sodium Chloride) 100 mls @ 200 mls/hr IV ONETIME ONE Stop: 08/07/19 20:00 Last Admin: 08/07/19 19:47 Dose: Not Given Magnesium Sulfate 2 gm/ Premix 50 mls @ 25 mls/hr IV ONETIME ONE Stop: 08/07/19 21:42 Last Admin: 08/07/19 20:24 Dose: 25 mls/hr Ceftriaxone Sodium 2 gm/ (Sodium Chloride) 100 mls @ 200 mls/hr IV Q24H STA Stop: 08/07/19 20:15 Last Admin: 08/07/19 19:49 Dose: 200 mls/hr Sodium Chloride (Normal Saline) Confirm Administered Dose 100 mls @ as directed .ROUTE .STK-MED ONE Stop: 08/07/19 19:45 Last Admin: 08/07/19 19:51 Dose: Not Given Azithromycin 500 mg/ Sodium (Chloride) 250 mls @ 250 mls/hr IV Q24H [facility] Last Admin: 08/10/19 22:08 Dose: 250 mls/hr Ceftriaxone Sodium 2 gm/ (Sodium Chloride) 100 mls @ 200 mls/hr IV Q24H [facility] Last Admin: 08/10/19 21:25 Dose: 200 mls/hr Sodium Chloride (Normal Saline) 1,000 mls @ 75 mls/hr IV ASDIRECTED [facility] Sodium Phosphate 30 mmole/ (Sodium Chloride) 260 mls @ 130 mls/hr IV Q2H [facility] Stop: 08/10/19 15:59 Last Admin: 08/10/19 15:12 Dose: 130 mls/hr Magnesium Sulfate 2 gm/ Premix 50 mls @ 25 mls/hr IV ONETIME ONE Stop: 08/11/19 11:08 Last Admin: 08/11/19 09:38 Dose: 25 mls/hr Sodium Chloride (Normal Saline) Confirm Administered Dose 1,000 mls @ as directed .ROUTE .STK-MED ONE Stop: 08/11/19 17:34 Last Admin: 08/11/19 17:43 Dose: Not Given Influenza Virus Vaccine (Pharmacy To Dose - Influenza Vaccine) 1 each IM ONETIME ONE Stop: 08/07/19 22:46 Influenza Virus Vaccine (Fluzone High-Dose Syringe) 180 mcg IM .ONCE ONE Stop: 08/08/19 10:01 Iopamidol (Isovue-300 (61%)) 100 ml IVPUSH ONETIME ONE Stop: 08/11/19 16:42 Last Admin: 08/11/19 16:44 Dose: 100 ml Ipratropium [place] (Atrovent) 0.5 mg NEB Q4HRRT [facility] Last Admin: 08/11/19 13:29 Dose: 0.5 mg Ondansetron HCl (Zofran) 4 mg IVPUSH ONETIME ONE Stop: 08/07/19 16:51 Last Admin: 08/07/19 17:20 Dose: 4 mg Ondansetron HCl (Zofran) 4 mg IVPUSH ONETIME ONE Stop: 08/07/19 19:12 Last Admin: 08/07/19 19:51 Dose: 4 mg Ondansetron HCl (Zofran) 4 mg IV Q6H [facility] Last Admin: 08/08/19 06:03 Dose: Not Given Ondansetron HCl (Zofran) 4 mg IV Q6H [facility] Last Admin: 08/08/19 12:40 Dose: 4 mg Sodium Chloride (Saline Flush) 10 ml FLUSH ONETIME ONE Stop: 08/11/19 16:42 Last Admin: 08/11/19 16:46 Dose: 10 ml - Exam Quality Assessment: DVT Prophylaxis General: Alert, Oriented, Cooperative, No Acute Distress HEENT: Pupils Equal, Pupils Reactive, Mucous Membr. Moist/[place] Neck: Supple, Trachea Midline Lungs: Normal Respiratory Effort, Decreased Breath Sounds. No: Crackles, Wheezing Cardiovascular: Regular Rate, Regular Rhythm GI/Abdominal Exam: Normal Bowel Sounds, Soft, No Distention, Tender (Mild RUQ tenderness. ), Mass (RUQ) (Male) Exam: Deferred Back Exam: Normal Inspection, Full Range of Motion Extremities: Normal Inspection, Normal Range of Motion, Non-Tender, No Pedal Edema, Normal Capillary Refill Peripheral Pulses: 2+: Radial (L), Radial (R), Dorsalis Pedis (L), Dorsalis Pedis (R) Skin: Warm, Dry, Intact Neurological: No New Focal Deficit Psy/Mental Status: Alert, Normal Affect, Normal Mood Sepsis Event Note - Evaluation Sepsis Screening Result: No Definite Risk - Focused Exam Vital Signs: Vital Signs Temp Pulse Pulse Resp BP BP Pulse Ox 08/12/19 06:08 08/12/19 05:52 76 20 109/72 92 L 08/11/19 21:00 97.9 F 90 16 124/97 H 95 08/11/19 20:28 Pulse Ox 08/12/19 06:08 92 L 08/12/19 05:52 08/11/19 21:00 08/11/19 20:28 95 Date Exam was Performed: 08/12/19 Time Exam was Performed: 14:12 - Problem List & Annotations (1) Acute hypoxemic respiratory failure SNOMED Code(s): 117006879 Code(s): J96.01 - ACUTE RESPIRATORY FAILURE WITH HYPOXIA Status: Acute Priority: High Current Visit: Yes (2) Chronic pain SNOMED Code(s): 35212457 Code(s): G89.29 - OTHER CHRONIC PAIN Status: Chronic Priority: Medium Current Visit: Yes Qualifiers: Chronic pain type: other chronic pain Qualified Code(s): G89.29 - Other chronic pain (3) Hypoalbuminemia SNOMED Code(s): 949004307 Code(s): E88.09 - OTH DISORDERS OF PLASMA-PROTEIN METABOLISM, NEC Status: Acute Priority: High Current Visit: Yes (4) Hypomagnesemia SNOMED Code(s): 044886307 Code(s): E83.42 - HYPOMAGNESEMIA Status: Resolved Priority: High Current Visit: Yes (5) Hyponatremia SNOMED Code(s): 09163459 Code(s): E87.1 - HYPO-OSMOLALITY AND HYPONATREMIA Status: Resolved Priority: High Current Visit: Yes (6) Hypophosphatemia SNOMED Code(s): 0436311 Code(s): E83.39 - OTHER DISORDERS OF PHOSPHORUS METABOLISM Status: Resolved Priority: High Current Visit: Yes (7) Intractable nausea and vomiting SNOMED Code(s): 137578261 Code(s): R11.2 - NAUSEA WITH VOMITING, UNSPECIFIED Status: Resolved Priority: High Current Visit: Yes (8) Leukocytosis SNOMED Code(s): 641392446, 942001984 Code(s): D72.829 - ELEVATED WHITE BLOOD CELL COUNT, UNSPECIFIED Status: Acute Priority: High Current Visit: Yes Qualifiers: Leukocytosis type: unspecified Qualified Code(s): D72.829 - Elevated white blood cell count, unspecified (9) Lung nodule SNOMED Code(s): 585057479 Code(s): R91.1 - SOLITARY PULMONARY NODULE Status: Acute Priority: High Current Visit: Yes (10) Macrocytosis without anemia SNOMED Code(s): 055894472 Code(s): D75.89 - OTHER SPECIFIED DISEASES OF BLOOD AND BLOOD-FORMING ORGANS Status: Acute Priority: High Current Visit: Yes (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 Code(s): 21517745, 072431846 Code(s): F11.20 - OPIOID DEPENDENCE, UNCOMPLICATED Status: Chronic Priority: Medium Current Visit: Yes (12) Pneumonia SNOMED Code(s): 961527882 Code(s): J18.9 - PNEUMONIA, UNSPECIFIED ORGANISM Status: Acute Priority: High Current Visit: Yes Qualifiers: Pneumonia type: due to unspecified organism Laterality: unspecified laterality Lung location: unspecified part of lung Qualified Code(s): J18.9 - Pneumonia, unspecified organism (13) Productive cough SNOMED Code(s): 79102349, 160082254, 748016000 Code(s): R05 - COUGH Status: Acute Priority: High Current Visit: Yes (14) Schizophrenia SNOMED Code(s): 19260618 Code(s): F20.9 - SCHIZOPHRENIA, UNSPECIFIED Status: Chronic Priority: Medium Current Visit: Yes Qualifiers: Schizophrenia type: unspecified Qualified Code(s): F20.9 - Schizophrenia, unspecified (15) Smoker SNOMED Code(s): 57085344 Code(s): F17.200 - NICOTINE DEPENDENCE, UNSPECIFIED, UNCOMPLICATED Status: Chronic Priority: Medium Current Visit: Yes (16) Tachycardia SNOMED Code(s): 1714757 Code(s): R00.0 - TACHYCARDIA, UNSPECIFIED Status: Resolved Priority: High Current Visit: Yes (17) Small bowel obstruction SNOMED Code(s): 035339864 Code(s): K56.609 - UNSP INTESTNL OBST, UNSP TO PARTIAL VERSUS COMPLETE OBST Status: Acute Priority: High Current Visit: Yes - Problem List Review Problem List Initiated/Reviewed/Updated: Yes - My Orders Last 24 Hours: My Active Orders 08/11/19 13:09 Evaluate for Home Oxygen [RT Evaluate for Home Oxygen] [RC] Click to Edit 08/11/19 15:54 RT Aerosol Therapy [RC] ASDIRECTED 08/11/19 16:00 Albuterol/Ipratropium [DuoNeb 3.0-0.5 MG/3 ML] 3 ml NEB QIDRT 08/11/19 17:12 Ambulate [RC] ASDIRECTED 08/11/19 17:13 Communication Order [RC] DAILY 08/11/19 17:21 Consult to Physician [CONS] Routine 08/11/19 17:22 Notify Provider Consults [RC] ASDIRECTED 08/11/19 17:30 Sodium Chloride 0.9% [Normal Saline] 1,000 ml IV ASDIRECTED 08/11/19 21:00 Azithromycin [Zithromax] 250 mg PO BEDTIME Cefdinir [Omnicef] 300 mg PO BID 08/11/19 Dinner NPO Now [Nothing per Oral Now Diet] [DIET] 08/12/19 07:41 PHOSPHORUS [CHEM] Routine 08/13/19 05:11 BASIC METABOLIC PANEL,BMP [CHEM] AM CBC WITH AUTO DIFF [HEME] AM MAGNESIUM [CHEM] AM 08/14/19 05:11 BASIC METABOLIC PANEL,BMP [CHEM] AM CBC WITH AUTO DIFF [HEME] AM MAGNESIUM [CHEM] AM 08/15/19 05:11 BASIC METABOLIC PANEL,BMP [CHEM] AM CBC WITH AUTO DIFF [HEME] AM MAGNESIUM [CHEM] AM - Plan Plan:: SBO Vomiting Initially presented with intractable nausea and vomiting to ED Has been stable since admission, vomited x1 on 08/11/19 after drinking coffee Tender knob in RUQ noted on physical exam - not gallbladder, calcified mass on CT. Patient reports chronic since [address] scan PLAN - Repeat abdominal X-ray today to see if contrast is moving through bowel - Antiemetics - Hold off NG tube for now unless starts to vomit - NPO with meds - Dr. Egan, general surgery consult - Ambulate QID - IV fluids as ordered - Monitor blood sugars Pneumonia Acute hypoxemic respiratory failure Emphysema Chronic cough, acutely worsening in past week Associated with fever - none on floor CXR with infiltrate in posterior lobes [employer] evaluation - regular diet, thin liquids PLAN - Azithromycin, Tamiflu and Rocephin -> completed tamiflu and azithromycin treatment - Atrovent q4h - Incentive spirometer/Acapella - ABG as needed - Goal SatO2 > 88% Lung nodule, right lung Active Smoker Smokes 2/4ppd > 40y Stable lung nodule noted on CT exam 08/11/19 PLAN - Nicotine patch Schizophrenia Home management with Trazodone, Risperdal and Benztropine PLAN - Let me sleep protocol as much as possible - Continue home medications Chronic pain Methadone maintenance therapy patient Denies any current pain PLAN - Continue methadone Muscle wasting Hypoalbuminemia Macrocytosis without anemia Significant muscle wasting Vitamin B12 level and folic acid level WNL Pre-albumin low PLAN - Dietary consult Hypophosphatemia PLAN - Supplement S/P Hyponatremia/Hypomagnesemia PROPHYLAXIS DVT- compression stockings GI- not indicated CODE STATUS: FULL CODE DISPOSITION: Patient will remain admitted due to new SBO. LOS >96 HRS due to need for SBO work-up
--- NOTE | 2019-08-12 08:20 | PCM.SURGPN ---
- General Info Date of Service: 08/12/19 Functional Status: Reports: Pain Controlled Pain Score: 0 - Review of Systems General: Reports: No Symptoms HEENT: Reports: No Symptoms Pulmonary: Reports: No Symptoms Cardiovascular: Reports: No Symptoms Gastrointestinal: Reports: No Symptoms Genitourinary: Reports: No Symptoms Musculoskeletal: Reports: No Symptoms Skin: Reports: No Symptoms Neurological: Reports: No Symptoms - Patient Data Vitals - Most Recent: Last Vital Signs Temp 97.9 F 08/11/19 21:00 Pulse 76 08/12/19 05:52 Resp 20 08/12/19 05:52 BP 109/72 08/12/19 05:52 Pulse Ox 92 L 08/12/19 06:08 Orthostatic Blood Pressure [ 109/60 Standing] Orthostatic Blood Pressure [ 120/69 Sitting] Orthostatic Blood Pressure [ 120/79 Supine] Weight - Most Recent: 63.14 kg I&O - Last 24 Hours: Intake & Output 08/11/19 08/12/19 08/12/19 22:59 06:59 14:59 Intake Total 50 1017 Balance 50 1017 Lab Results Last 24 Hrs: Laboratory Results - last 24 hr 08/11/19 08/12/19 08/12/19 Range/Units 05:33 05:25 05:25 WBC 7.93 (4.23-9.07) K/mm3 RBC 3.82 L (4.63-6.08) M/mm3 Hgb 12.2 L (13.7-17.5) gm/dl Hct 37.7 L (40.1-51.0) % MCV 98.7 H (79.0-92.2) fl MCH 31.9 (25.7-32.2) pg MCHC 32.4 (32.2-35.5) g/dl RDW Std Deviation 45.9 H (35.1-43.9) fL Plt Count 265 (163-337) K/mm3 MPV 9.1 L (9.4-12.3) fl Neut % (Auto) 68.3 H (34.0-67.9) % Lymph % (Auto) 16.5 L (21.8-53.1) % Williams % (Auto) 12.9 H (5.3-12.2) % Eos % (Auto) 1.0 (0.8-7.0) Baso % (Auto) 0.4 (0.1-1.2) % Neut # (Auto) 5.42 H (1.78-5.38) K/mm3 Lymph # (Auto) 1.31 L (1.32-3.57) K/mm3 Williams # (Auto) 1.02 H (0.30-0.82) K/mm3 Eos # (Auto) 0.08 (0.04-0.54) K/mm3 Baso # (Auto) 0.03 (0.01-0.08) K/mm3 Manual Slide Review Normal smear Sodium 137 (136-145) mEq/L Potassium 4.9 (3.5-5.1) mEq/L Chloride 104 (98-107) mEq/L Carbon Dioxide 26 (21-32) mEq/L Anion Gap 11.9 (5-15) BUN 6 L (7-18) mg/dL Creatinine 0.7 (0.7-1.3) mg/dL Est Cr Clr Drug Dosing 87.69 mL/min Estimated GFR (MDRD) > 60 (>60) mL/min BUN/Creatinine Ratio 8.6 L (14-18) Glucose 89 (80-115) mg/dL Calcium 8.0 L (8.5-10.1) mg/dL Magnesium 2.0 (1.8-2.4) mg/dl Procalcitonin 0.14 H (<0.10) ng/mL Dmitriy Results Last 24 Hrs: Microbiology 08/07/19 18:45 Aerobic Blood Culture - Preliminary Blood - Venous - Lab Draw NO GROWTH AFTER 4 DAYS Anaerobic Blood Culture - Preliminary NO GROWTH AFTER 4 DAYS 08/07/19 18:35 Aerobic Blood Culture - Preliminary Blood - Venous NO GROWTH AFTER 4 DAYS Anaerobic Blood Culture - Preliminary NO GROWTH AFTER 4 DAYS Med Orders - Current: Current Medications Acetaminophen (Tylenol) 650 mg PO Q4H PRN PRN Reason: Pain (Mild 1-3)/fever Albuterol/Ipratropium (Duoneb 3.0-0.5 Mg/3 Ml) 3 ml NEB QIDRT [facility] Last Admin: 08/12/19 06:06 Dose: 3 ml Azithromycin (Zithromax) 250 mg PO BEDTIME [facility] Last Admin: 08/11/19 21:06 Dose: 250 mg Benzonatate (Tessalon Perles) 100 mg PO BID [facility] Last Admin: 08/11/19 21:08 Dose: 100 mg Benztropine Mesylate (Cogentin) 1 mg PO BEDTIME [facility] Last Admin: 08/11/19 21:07 Dose: 1 mg Cefdinir (Omnicef) 300 mg PO BID [facility] Last Admin: 08/11/19 21:05 Dose: 300 mg Guaifenesin (Mucinex) 600 mg PO BID [facility] Last Admin: 08/11/19 21:07 Dose: 600 mg Sodium Chloride (Normal Saline) 1,000 mls @ 75 mls/hr IV ASDIRECTED [facility] Last Admin: 08/11/19 17:43 Dose: 75 mls/hr Methadone HCl (Methadone) 5 mg PO BID [facility] Last Admin: 08/11/19 21:05 Dose: 5 mg Nicotine (Habitrol) 21 mg TRDERM DAILY [facility] Last Admin: 08/11/19 09:39 Dose: 21 mg Ondansetron HCl (Zofran Odt) 4 mg PO Q6H PRN PRN Reason: nausea, able to take PO Last Admin: 08/09/19 16:40 Dose: 4 mg Ondansetron HCl (Zofran) 4 mg IVPUSH Q8H PRN PRN Reason: Nausea/Vomiting Last Admin: 08/11/19 15:11 Dose: 4 mg Oseltamivir Phosphate (Tamiflu) 75 mg PO BID [facility] Stop: 08/12/19 09:01 Last Admin: 08/11/19 21:08 Dose: 75 mg Risperidone (Risperidal) 2 mg PO BEDTIME [facility] Last Admin: 08/11/19 21:04 Dose: 2 mg Risperidone (Risperidal) 1 mg PO DAILY [facility] Last Admin: 08/11/19 09:41 Dose: 1 mg Sodium Chloride (Saline Flush) 10 ml FLUSH ASDIRECTED PRN PRN Reason: Keep Vein Open Last Admin: 08/11/19 16:44 Dose: 10 ml Trazodone HCl (Trazodone) 50 mg PO BEDTIME [facility] Last Admin: 08/11/19 21:04 Dose: 50 mg Discontinued Medications Ceftriaxone Sodium (Rocephin) Confirm Administered Dose 2 gm IV .STK-MED ONE Stop: 08/07/19 19:45 Last Admin: 08/07/19 19:51 Dose: Not Given Diatrizoate Meglum/Diatrizoate Sod (Gastrografin 37%) 90 ml PO ONETIME ONE Stop: 08/11/19 16:42 Last Admin: 08/11/19 16:43 Dose: 90 ml Guaifenesin (Mucinex) 600 mg PO BID [facility] Last Admin: 08/08/19 12:51 Dose: Not Given Sodium Chloride (Normal Saline) 1,000 mls @ 150 mls/hr IV ASDIRECTED [facility] Last Admin: 08/08/19 06:02 Dose: 150 mls/hr Ceftriaxone Sodium 2 gm/ (Sodium Chloride) 100 mls @ 200 mls/hr IV ONETIME ONE Stop: 08/07/19 20:00 Last Admin: 08/07/19 19:47 Dose: Not Given Magnesium Sulfate 2 gm/ Premix 50 mls @ 25 mls/hr IV ONETIME ONE Stop: 08/07/19 21:42 Last Admin: 08/07/19 20:24 Dose: 25 mls/hr Ceftriaxone Sodium 2 gm/ (Sodium Chloride) 100 mls @ 200 mls/hr IV Q24H STA Stop: 08/07/19 20:15 Last Admin: 08/07/19 19:49 Dose: 200 mls/hr Sodium Chloride (Normal Saline) Confirm Administered Dose 100 mls @ as directed .ROUTE .STK-MED ONE Stop: 08/07/19 19:45 Last Admin: 08/07/19 19:51 Dose: Not Given Azithromycin 500 mg/ Sodium (Chloride) 250 mls @ 250 mls/hr IV Q24H [facility] Last Admin: 08/10/19 22:08 Dose: 250 mls/hr Ceftriaxone Sodium 2 gm/ (Sodium Chloride) 100 mls @ 200 mls/hr IV Q24H [facility] Last Admin: 08/10/19 21:25 Dose: 200 mls/hr Sodium Chloride (Normal Saline) 1,000 mls @ 75 mls/hr IV ASDIRECTED [facility] Sodium Phosphate 30 mmole/ (Sodium Chloride) 260 mls @ 130 mls/hr IV Q2H [facility] Stop: 08/10/19 15:59 Last Admin: 08/10/19 15:12 Dose: 130 mls/hr Magnesium Sulfate 2 gm/ Premix 50 mls @ 25 mls/hr IV ONETIME ONE Stop: 08/11/19 11:08 Last Admin: 08/11/19 09:38 Dose: 25 mls/hr Sodium Chloride (Normal Saline) Confirm Administered Dose 1,000 mls @ as directed .ROUTE .STK-MED ONE Stop: 08/11/19 17:34 Last Admin: 08/11/19 17:43 Dose: Not Given Influenza Virus Vaccine (Pharmacy To Dose - Influenza Vaccine) 1 each IM ONETIME ONE Stop: 08/07/19 22:46 Influenza Virus Vaccine (Fluzone High-Dose Syringe) 180 mcg IM .ONCE ONE Stop: 08/08/19 10:01 Iopamidol (Isovue-300 (61%)) 100 ml IVPUSH ONETIME ONE Stop: 08/11/19 16:42 Last Admin: 08/11/19 16:44 Dose: 100 ml Ipratropium [place] (Atrovent) 0.5 mg NEB Q4HRRT [facility] Last Admin: 08/11/19 13:29 Dose: 0.5 mg Ondansetron HCl (Zofran) 4 mg IVPUSH ONETIME ONE Stop: 08/07/19 16:51 Last Admin: 08/07/19 17:20 Dose: 4 mg Ondansetron HCl (Zofran) 4 mg IVPUSH ONETIME ONE Stop: 08/07/19 19:12 Last Admin: 08/07/19 19:51 Dose: 4 mg Ondansetron HCl (Zofran) 4 mg IV Q6H [facility] Last Admin: 08/08/19 06:03 Dose: Not Given Ondansetron HCl (Zofran) 4 mg IV Q6H [facility] Last Admin: 08/08/19 12:40 Dose: 4 mg Sodium Chloride (Saline Flush) 10 ml FLUSH ONETIME ONE Stop: 08/11/19 16:42 Last Admin: 08/11/19 16:46 Dose: 10 ml - Exam General: Alert, Cooperative, No Acute Distress GI/Abdominal Exam: Soft, Non-Tender, No Organomegaly, No Distention Sepsis Event Note - Evaluation Sepsis Screening Result: No Definite Risk - Focused Exam Vital Signs: Vital Signs Temp Pulse Pulse Resp BP BP Pulse Ox 08/12/19 06:08 08/12/19 05:52 76 20 109/72 92 L 08/11/19 21:00 97.9 F 90 16 124/97 H 95 08/11/19 20:28 Pulse Ox 03/20/20 06:08 92 L 08/12/19 05:52 08/11/19 21:00 08/11/19 20:28 95 Date Exam was Performed: 08/12/19 Time Exam was Performed: 08:13 - Problem List Review Problem List Initiated/Reviewed/Updated: No - My Orders Last 24 Hours: Active Orders 24 hr Category Date Time Status Ambulate [RC] ASDIRECTED Care 08/11/19 17:12 Active Communication Order [RC] DAILY Care 08/11/19 17:13 Active Evaluate for Home Oxygen [RT Evaluate for Home Oxygen] Care 08/11/19 13:09 Active [RC] Click to Edit Notify Provider Consults [RC] ASDIRECTED Care 08/11/19 17:22 Active RT Aerosol Therapy [RC] ASDIRECTED Care 08/11/19 15:54 Active Consult to Physician [CONS] Routine Cons 08/11/19 17:21 Active NPO Now [Nothing per Oral Now Diet] [DIET] Diet 08/11/19 Dinner Active BASIC METABOLIC PANEL,BMP [CHEM] AM Lab 08/13/19 05:11 Ordered BASIC METABOLIC PANEL,BMP [CHEM] AM Lab 08/14/19 05:11 Ordered BASIC METABOLIC PANEL,BMP [CHEM] AM Lab 08/15/19 05:11 Ordered CBC WITH AUTO DIFF [HEME] AM Lab 08/13/19 05:11 Ordered CBC WITH AUTO DIFF [HEME] AM Lab 08/14/19 05:11 Ordered CBC WITH AUTO DIFF [HEME] AM Lab 08/15/19 05:11 Ordered MAGNESIUM [CHEM] AM Lab 08/13/19 05:11 Ordered MAGNESIUM [CHEM] AM Lab 08/14/19 05:11 Ordered MAGNESIUM [CHEM] AM Lab 08/15/19 05:11 Ordered PHOSPHORUS [CHEM] Routine Lab 08/12/19 07:41 Ordered Albuterol/Ipratropium [DuoNeb 3.0-0.5 MG/3 ML] Med 08/11/19 16:00 Active 3 ml NEB QIDRT Azithromycin [Zithromax] Med 08/11/19 21:00 Active 250 mg PO BEDTIME Cefdinir [Omnicef] Med 08/11/19 21:00 Active 300 mg PO BID Sodium Chloride 0.9% [Normal Saline] 1,000 ml Med 08/11/19 17:30 Active IV ASDIRECTED Medication Orders Acetaminophen (Tylenol) 650 mg PO Q4H PRN PRN Reason: Pain (Mild 1-3)/fever Albuterol/Ipratropium (Duoneb 3.0-0.5 Mg/3 Ml) 3 ml NEB QIDRT [facility] Last Admin: 08/12/19 06:06 Dose: 3 ml Admin: 08/11/19 20:27 Dose: 3 ml Admin: 08/11/19 15:59 Dose: 3 ml Azithromycin (Zithromax) 250 mg PO BEDTIME [facility] Last Admin: 08/11/19 21:06 Dose: 250 mg Benzonatate (Tessalon Perles) 100 mg PO BID [facility] Last Admin: 08/11/19 21:08 Dose: 100 mg Admin: 08/11/19 09:40 Dose: 100 mg Admin: 08/10/19 21:30 Dose: 100 mg Admin: 08/10/19 09:23 Dose: 100 mg Admin: 08/09/19 20:12 Dose: 100 mg Admin: 08/09/19 09:24 Dose: 100 mg Admin: 08/08/19 21:21 Dose: 100 mg Admin: 08/08/19 12:40 Dose: 100 mg Benztropine Mesylate (Cogentin) 1 mg PO BEDTIME [facility] Last Admin: 08/11/19 21:07 Dose: 1 mg Admin: 08/10/19 21:31 Dose: 1 mg Admin: 08/09/19 20:11 Dose: 1 mg Admin: 08/08/19 21:21 Dose: 1 mg Cefdinir (Omnicef) 300 mg PO BID [facility] Last Admin: 08/11/19 21:05 Dose: 300 mg Guaifenesin (Mucinex) 600 mg PO BID [facility] Last Admin: 08/11/19 21:07 Dose: 600 mg Admin: 08/11/19 09:40 Dose: 600 mg Admin: 08/10/19 21:30 Dose: 600 mg Admin: 08/10/19 09:23 Dose: 600 mg Admin: 08/09/19 20:08 Dose: 600 mg Admin: 08/09/19 09:24 Dose: 600 mg Admin: 08/08/19 21:21 Dose: 600 mg Admin: 08/08/19 09:45 Dose: 600 mg Sodium Chloride (Normal Saline) 1,000 mls @ 75 mls/hr IV ASDIRECTED [facility] Last Admin: 08/11/19 17:43 Dose: 75 mls/hr Methadone HCl (Methadone) 5 mg PO BID [facility] Last Admin: 08/11/19 21:05 Dose: 5 mg Admin: 08/11/19 09:40 Dose: 5 mg Admin: 08/10/19 21:30 Dose: 5 mg Admin: 08/10/19 09:21 Dose: 5 mg Admin: 08/09/19 20:09 Dose: 5 mg Admin: 08/09/19 09:24 Dose: 5 mg Admin: 08/08/19 21:22 Dose: 5 mg Nicotine (Habitrol) 21 mg TRDERM DAILY [facility] Last Admin: 08/11/19 09:39 Dose: 21 mg Admin: 08/10/19 09:23 Dose: 21 mg Admin: 08/09/19 09:23 Dose: 21 mg Admin: 08/08/19 09:45 Dose: 21 mg Ondansetron HCl (Zofran Odt) 4 mg PO Q6H PRN PRN Reason: nausea, able to take PO Last Admin: 08/09/19 16:40 Dose: 4 mg Ondansetron HCl (Zofran) 4 mg IVPUSH Q8H PRN PRN Reason: Nausea/Vomiting Last Admin: 08/11/19 15:11 Dose: 4 mg Oseltamivir Phosphate (Tamiflu) 75 mg PO BID [facility] Stop: 08/12/19 09:01 Last Admin: 08/11/19 21:08 Dose: 75 mg Admin: 08/11/19 09:40 Dose: 75 mg Admin: 08/10/19 21:30 Dose: 75 mg Admin: 08/10/19 09:21 Dose: 75 mg Admin: 08/09/19 20:08 Dose: 75 mg Admin: 08/09/19 09:26 Dose: 75 mg Admin: 08/08/19 21:21 Dose: 75 mg Admin: 08/08/19 09:45 Dose: 75 mg Admin: 08/08/19 00:27 Dose: 75 mg Risperidone (Risperidal) 2 mg PO BEDTIME [facility] Last Admin: 08/11/19 21:04 Dose: 2 mg Admin: 08/10/19 21:31 Dose: 2 mg Admin: 08/09/19 20:09 Dose: 2 mg Admin: 08/08/19 21:21 Dose: 2 mg Risperidone (Risperidal) 1 mg PO DAILY [facility] Last Admin: 08/11/19 09:41 Dose: 1 mg Admin: 08/10/19 09:21 Dose: 1 mg Admin: 08/09/19 09:26 Dose: 1 mg Sodium Chloride (Saline Flush) 10 ml FLUSH ASDIRECTED PRN PRN Reason: Keep Vein Open Last Admin: 08/11/19 16:44 Dose: 10 ml Admin: 08/11/19 16:43 Dose: 10 ml Admin: 08/07/19 17:21 Dose: 10 ml Trazodone HCl (Trazodone) 50 mg PO BEDTIME [facility] Last Admin: 08/11/19 21:04 Dose: 50 mg Admin: 08/10/19 21:31 Dose: 50 mg Admin: 08/09/19 20:12 Dose: 50 mg Admin: 08/08/19 21:21 Dose: 50 mg - Assessment Assessment (Free Text/Narrative):: Still patient denies any flatus or BM. Asking for PO. I discussed with him that we are concerned about possible SBO therefore we will continue to hold off PO until bowel function returns. - Continue NPO with IVF at this time - Will obtain abdominal Xray to see progression of contrast - Minimize narcotics - Encourage physical activities - [facility]
[2019-08-12] MEDS: Oseltamivir 75 MG Cap PO SCH (09:24)
[2019-08-12] MEDS: Sodium Chloride 0.9% 1,000 ML IV SCH (09:24)
[2019-08-12] MEDS: Nicotine 21 MG/24 Hr Patch TRDERM SCH (09:24)
[2019-08-12] MEDS: risperiDONE 1 MG Tab PO SCH ×2 (09:25→21:19)
[2019-08-12] MEDS: guaiFENesin 600 MG Tab.ER PO SCH ×2 (09:25→21:20)
[2019-08-12] MEDS: Cefdinir 300 MG Cap PO SCH ×2 (09:25→21:19)
[2019-08-12] MEDS: Benzonatate 100 MG Cap PO SCH ×2 (09:25→21:20)
[2019-08-12] MEDS: Methadone 5 MG Tab PO SCH ×2 (09:25→21:19)
--- NOTE | 2019-08-12 10:05 | CR ---
Abdomen: Supine and upright views of the abdomen were obtained. Comparison: Prior abdominal x-ray of 08/11/19. Several loops of small bowel gas are noted with differential air-fluid levels. Contrast is noted within the colon from CT exam performed one day earlier. Contrast within the colon rules out complete small bowel obstruction. No free air is seen. Stable mass within the left chest. Scoliosis is noted within the spine with mild degenerative change. Impression: 1. Several persisting air-fluid levels within mildly prominent small bowel. Findings most likely represent mild persisting partial small bowel obstruction. 2. Contrast is noted within the colon from previous CT exam. 3. Other findings believed to be incidental. Diagnostic code #3 This report was dictated in MDT
--- NOTE | 2019-08-12 14:34 | PCM.SN ---
- Free Text/Narrative Note: I reviewed the abdominal Xrays. There contrast in the colon. Patient may still have partial bowel obstruction but given his dementia and schizophrenia, I would recommend non-operative management at this time. If he fails or has recurrent readmission for the same problem, then we will discuss operative intervention.
[2019-08-12] MEDS: Dextrose 5%-0.9% NaCl 1,000 ML IV SCH (15:09)
[2019-08-12] MEDS: Benztropine 1 MG Tab PO SCH (21:19)
[2019-08-12] MEDS: traZODone 50 MG Tab PO SCH (21:20)
[2019-08-13] MEDS: Dextrose 5%-0.9% NaCl 1,000 ML IV SCH ×2 (00:52→11:11)
[2019-08-13] MEDS: Albuterol/Ipratropium 3.0-0.5 MG/3 ML Neb Soln NEB SCH ×4 (06:47→20:33)
[2019-08-13] MEDS: Nicotine 21 MG/24 Hr Patch TRDERM SCH (08:47)
[2019-08-13] MEDS: Cefdinir 300 MG Cap PO SCH ×2 (08:48→20:56)
[2019-08-13] MEDS: guaiFENesin 600 MG Tab.ER PO SCH ×2 (08:48→20:55)
[2019-08-13] MEDS: risperiDONE 1 MG Tab PO SCH ×2 (08:48→20:56)
[2019-08-13] MEDS: Benzonatate 100 MG Cap PO SCH ×2 (08:48→20:55)
[2019-08-13] MEDS: Methadone 5 MG Tab PO SCH ×2 (08:48→20:56)
[2019-08-13] MEDS: Acetaminophen 325 MG Tab PO PRN (09:43)
[2019-08-13] MEDS: Ondansetron 4 MG Tab.DIS PO PRN (09:44)
[2019-08-13] MEDS ORDERED: Dextrose 5%-0.9% NaCl 1,000 ML IV SCH (12:00)
--- NOTE | 2019-08-13 13:13 | PCM.SURGPN ---
- General Info Date of Service: 08/13/19 Functional Status: Reports: Other (no pain) Pain Score: 0 - Review of Systems General: Reports: No Symptoms HEENT: Reports: No Symptoms Pulmonary: Reports: No Symptoms Cardiovascular: Reports: No Symptoms Gastrointestinal: Reports: No Symptoms Genitourinary: Reports: No Symptoms Musculoskeletal: Reports: No Symptoms Skin: Reports: No Symptoms - Patient Data Vitals - Most Recent: Last Vital Signs Temp 98.1 F 08/13/19 08:34 Pulse 75 08/13/19 08:34 Resp 15 08/13/19 08:34 BP 116/81 08/13/19 08:34 Pulse Ox 94 L 08/13/19 08:59 Orthostatic Blood Pressure [ 109/60 Standing] Orthostatic Blood Pressure [ 120/69 Sitting] Orthostatic Blood Pressure [ 120/79 Supine] Weight - Most Recent: 63.14 kg I&O - Last 24 Hours: Intake & Output 08/12/19 08/13/19 08/13/19 22:59 06:59 14:59 Intake Total 1337 1251 440 Balance 1337 1251 440 Lab Results Last 24 Hrs: Laboratory Results - last 24 hr 08/12/19 08/12/19 08/13/19 Range/Units 14:26 18:23 00:31 WBC (4.23-9.07) K/mm3 RBC (4.63-6.08) M/mm3 Hgb (13.7-17.5) gm/dl Hct (40.1-51.0) % MCV (79.0-92.2) fl MCH (25.7-32.2) pg MCHC (32.2-35.5) g/dl RDW Std Deviation (35.1-43.9) fL Plt Count (163-337) K/mm3 MPV (9.4-12.3) fl Neut % (Auto) (34.0-67.9) % Lymph % (Auto) (21.8-53.1) % Oter[place] % (Auto) (5.3-12.2) % Eos % (Auto) (0.8-7.0) Baso % (Auto) (0.1-1.2) % Neut # (Auto) (1.78-5.38) K/mm3 Lymph # (Auto) (1.32-3.57) K/mm3 [place] # (Auto) (0.30-0.82) K/mm3 Eos # (Auto) (0.04-0.54) K/mm3 Baso # (Auto) (0.01-0.08) K/mm3 Manual Slide Review Sodium (136-145) mEq/L Potassium (3.5-5.1) mEq/L Chloride (98-107) mEq/L Carbon Dioxide (21-32) mEq/L Anion Gap (5-15) BUN (7-18) mg/dL Creatinine (0.7-1.3) mg/dL Est Cr Clr Drug Dosing mL/min Estimated GFR (MDRD) (>60) mL/min BUN/Creatinine Ratio (14-18) Glucose (80-115) mg/dL POC Glucose 75 L 94 108 (80-115) mg/dL Calcium (8.5-10.1) mg/dL Magnesium (1.8-2.4) mg/dl 08/13/19 08/13/19 08/13/19 Range/Units 05:08 05:08 05:42 WBC 7.06 (4.23-9.07) K/mm3 RBC 4.01 L (4.63-6.08) M/mm3 Hgb 12.8 L (13.7-17.5) gm/dl Hct 39.3 L (40.1-51.0) % MCV 98.0 H (79.0-92.2) fl MCH 31.9 (25.7-32.2) pg MCHC 32.6 (32.2-35.5) g/dl RDW Std Deviation 45.1 H (35.1-43.9) fL Plt Count 301 (163-337) K/mm3 MPV 9.1 L (9.4-12.3) fl Neut % (Auto) 64.1 (34.0-67.9) % Lymph % (Auto) 18.8 L (21.8-53.1) % [place]ter[place] % (Auto) 14.6 H (5.3-12.2) % Eos % (Auto) 1.4 (0.8-7.0) Baso % (Auto) 0.1 (0.1-1.2) % Neut # (Auto) 4.52 (1.78-5.38) K/mm3 Lymph # (Auto) 1.33 (1.32-3.57) K/mm3 [place]tero # (Auto) 1.03 H (0.30-0.82) K/mm3 Eos # (Auto) 0.10 (0.04-0.54) K/mm3 Baso # (Auto) 0.01 (0.01-0.08) K/mm3 Manual Slide Review Normal smear Sodium 137 (136-145) mEq/L Potassium 4.6 (3.5-5.1) mEq/L Chloride 102 (98-107) mEq/L Carbon Dioxide 25 (21-32) mEq/L Anion Gap 14.6 (5-15) BUN 4 L (7-18) mg/dL Creatinine 0.7 (0.7-1.3) mg/dL Est Cr Clr Drug Dosing 87.69 mL/min Estimated GFR (MDRD) > 60 (>60) mL/min BUN/Creatinine Ratio 5.7 L (14-18) Glucose 121 H (80-115) mg/dL POC Glucose 112 (80-115) mg/dL Calcium 8.1 L (8.5-10.1) mg/dL Magnesium 2.0 (1.8-2.4) mg/dl 08/13/19 Range/Units 11:49 WBC (4.23-9.07) K/mm3 RBC (4.63-6.08) M/mm3 Hgb (13.7-17.5) gm/dl Hct (40.1-51.0) % MCV (79.0-92.2) fl MCH (25.7-32.2) pg MCHC (32.2-35.5) g/dl RDW Std Deviation (35.1-43.9) fL Plt Count (163-337) K/mm3 MPV (9.4-12.3) fl Neut % (Auto) (34.0-67.9) % Lymph % (Auto) (21.8-53.1) % [place] % (Auto) (5.3-12.2) % Eos % (Auto) (0.8-7.0) Baso % (Auto) (0.1-1.2) % Neut # (Auto) (1.78-5.38) K/mm3 Lymph # (Auto) (1.32-3.57) K/mm3 [place] # (Auto) (0.30-0.82) K/mm3 Eos # (Auto) (0.04-0.54) K/mm3 Baso # (Auto) (0.01-0.08) K/mm3 Manual Slide Review Sodium (136-145) mEq/L Potassium (3.5-5.1) mEq/L Chloride (98-107) mEq/L Carbon Dioxide (21-32) mEq/L Anion Gap (5-15) BUN (7-18) mg/dL Creatinine (0.7-1.3) mg/dL Est Cr Clr Drug Dosing mL/min Estimated GFR (MDRD) (>60) mL/min BUN/Creatinine Ratio (14-18) Glucose (80-115) mg/dL POC Glucose 145 H (80-115) mg/dL Calcium (8.5-10.1) mg/dL Magnesium (1.8-2.4) mg/dl Dmitriy Results Last 24 Hrs: Microbiology 08/07/19 18:45 Aerobic Blood Culture - Preliminary Blood - Venous - Lab Draw NO GROWTH AFTER 5 DAYS Anaerobic Blood Culture - Preliminary NO GROWTH AFTER 5 DAYS 08/07/19 18:35 Aerobic Blood Culture - Preliminary Blood - Venous NO GROWTH AFTER 5 DAYS Anaerobic Blood Culture - Preliminary NO GROWTH AFTER 5 DAYS Med Orders - Current: Current Medications Acetaminophen (Tylenol) 650 mg PO Q4H PRN PRN Reason: Pain (Mild 1-3)/fever Last Admin: 08/13/19 09:43 Dose: 650 mg Albuterol/Ipratropium (Duoneb 3.0-0.5 Mg/3 Ml) 3 ml NEB QIDRT [facility] Last Admin: 08/13/19 08:59 Dose: 3 ml Benzonatate (Tessalon Perles) 100 mg PO BID [facility] Last Admin: 08/13/19 08:48 Dose: 100 mg Benztropine Mesylate (Cogentin) 1 mg PO BEDTIME [facility] Last Admin: 08/12/19 21:19 Dose: 1 mg Cefdinir (Omnicef) 300 mg PO BID [facility] Last Admin: 08/13/19 08:48 Dose: 300 mg Guaifenesin (Mucinex) 600 mg PO BID [facility] Last Admin: 08/13/19 08:48 Dose: 600 mg Dextrose/Sodium Chloride (Dextrose 5%-Normal Saline) 1,000 mls @ 50 mls/hr IV ASDIRECTED [facility] Methadone HCl (Methadone) 5 mg PO BID [facility] Last Admin: 08/13/19 08:48 Dose: 5 mg Nicotine (Habitrol) 21 mg TRDERM DAILY [facility] Last Admin: 08/13/19 08:47 Dose: 21 mg Ondansetron HCl (Zofran Odt) 4 mg PO Q6H PRN PRN Reason: nausea, able to take PO Last Admin: 08/13/19 09:44 Dose: 4 mg Ondansetron HCl (Zofran) 4 mg IVPUSH Q8H PRN PRN Reason: Nausea/Vomiting Last Admin: 08/11/19 15:11 Dose: 4 mg Risperidone (Risperidal) 2 mg PO BEDTIME [facility] Last Admin: 08/12/19 21:19 Dose: 2 mg Risperidone (Risperidal) 1 mg PO DAILY [facility] Last Admin: 08/13/19 08:48 Dose: 1 mg Sodium Chloride (Saline Flush) 10 ml FLUSH ASDIRECTED PRN PRN Reason: Keep Vein Open Last Admin: 08/11/19 16:44 Dose: 10 ml Trazodone HCl (Trazodone) 50 mg PO BEDTIME [facility] Last Admin: 08/12/19 21:20 Dose: 50 mg Discontinued Medications Azithromycin (Zithromax) 250 mg PO BEDTIME [facility] Last Admin: 08/11/19 21:06 Dose: 250 mg Ceftriaxone Sodium (Rocephin) Confirm Administered Dose 2 gm IV .STK-MED ONE Stop: 08/07/19 19:45 Last Admin: 08/07/19 19:51 Dose: Not Given Diatrizoate Meglum/Diatrizoate Sod (Gastrografin 37%) 90 ml PO ONETIME ONE Stop: 08/11/19 16:42 Last Admin: 08/11/19 16:43 Dose: 90 ml Guaifenesin (Mucinex) 600 mg PO BID [facility] Last Admin: 08/08/19 12:51 Dose: Not Given Sodium Chloride (Normal Saline) 1,000 mls @ 150 mls/hr IV ASDIRECTED [facility] Last Admin: 08/08/19 06:02 Dose: 150 mls/hr Ceftriaxone Sodium 2 gm/ (Sodium Chloride) 100 mls @ 200 mls/hr IV ONETIME ONE Stop: 08/07/19 20:00 Last Admin: 08/07/19 19:47 Dose: Not Given Magnesium Sulfate 2 gm/ Premix 50 mls @ 25 mls/hr IV ONETIME ONE Stop: 08/07/19 21:42 Last Admin: 08/07/19 20:24 Dose: 25 mls/hr Ceftriaxone Sodium 2 gm/ (Sodium Chloride) 100 mls @ 200 mls/hr IV Q24H [facility] Stop: 08/07/19 20:15 Last Admin: 08/07/19 19:49 Dose: 200 mls/hr Sodium Chloride (Normal Saline) Confirm Administered Dose 100 mls @ as directed .ROUTE .[facility] ONE Stop: 08/07/19 19:45 Last Admin: 08/07/19 19:51 Dose: Not Given Azithromycin 500 mg/ Sodium (Chloride) 250 mls @ 250 mls/hr IV Q24H [facility] Last Admin: 08/10/19 22:08 Dose: 250 mls/hr Ceftriaxone Sodium 2 gm/ (Sodium Chloride) 100 mls @ 200 mls/hr IV Q24H [facility] Last Admin: 08/10/19 21:25 Dose: 200 mls/hr Sodium Chloride (Normal Saline) 1,000 mls @ 75 mls/hr IV ASDIRECTED [facility] Sodium Phosphate 30 mmole/ (Sodium Chloride) 260 mls @ 130 mls/hr IV Q2H [facility] Stop: 08/10/19 15:59 Last Admin: 08/10/19 15:12 Dose: 130 mls/hr Magnesium Sulfate 2 gm/ Premix 50 mls @ 25 mls/hr IV ONETIME ONE Stop: 08/11/19 11:08 Last Admin: 08/11/19 09:38 Dose: 25 mls/hr Sodium Chloride (Normal Saline) 1,000 mls @ 75 mls/hr IV ASDIRECTED [facility] Last Admin: 08/12/19 09:24 Dose: 75 mls/hr Sodium Chloride (Normal Saline) Confirm Administered Dose 1,000 mls @ as directed .ROUTE .[facility] ONE Stop: 08/11/19 17:34 Last Admin: 08/11/19 17:43 Dose: Not Given Dextrose/Sodium Chloride (Dextrose 5%-Normal Saline) 1,000 mls @ 100 mls/hr IV ASDIRECTED [facility] Last Infusion: 08/13/19 12:35 Dose: 50 mls/hr Influenza Virus Vaccine (Pharmacy To Dose - Influenza Vaccine) 1 each IM ONETIME ONE Stop: 08/07/19 22:46 Influenza Virus Vaccine (Fluzone High-Dose Syringe) 180 mcg IM .ONCE ONE Stop: 08/08/19 10:01 Iopamidol (Isovue-300 (61%)) 100 ml IVPUSH ONETIME ONE Stop: 08/11/19 16:42 Last Admin: 08/11/19 16:44 Dose: 100 ml Ipratropium [place] (Atrovent) 0.5 mg NEB Q4HRRT [facility] Last Admin: 08/11/19 13:29 Dose: 0.5 mg Ondansetron HCl (Zofran) 4 mg IVPUSH ONETIME ONE Stop: 08/07/19 16:51 Last Admin: 08/07/19 17:20 Dose: 4 mg Ondansetron HCl (Zofran) 4 mg IVPUSH ONETIME ONE Stop: 08/07/19 19:12 Last Admin: 08/07/19 19:51 Dose: 4 mg Ondansetron HCl (Zofran) 4 mg IV Q6H [facility] Last Admin: 08/08/19 06:03 Dose: Not Given Ondansetron HCl (Zofran) 4 mg IV Q6H [facility] Last Admin: 08/08/19 12:40 Dose: 4 mg Oseltamivir Phosphate (Tamiflu) 75 mg PO BID [facility] Stop: 08/12/19 09:01 Last Admin: 08/12/19 09:24 Dose: 75 mg Sodium Chloride (Saline Flush) 10 ml FLUSH ONETIME ONE Stop: 08/11/19 16:42 Last Admin: 08/11/19 16:46 Dose: 10 ml - Exam General: Alert, Cooperative, No Acute Distress Lungs: Normal Respiratory Effort Cardiovascular: Regular Rate, Regular Rhythm GI/Abdominal Exam: Soft, Non-Tender, No Distention, Other (palpable mass present in the RUQ stable) Sepsis Event Note - Evaluation Sepsis Screening Result: No Definite Risk - Focused Exam Vital Signs: Vital Signs Temp Pulse Resp BP Pulse Ox Pulse Ox 08/13/19 08:59 94 L 08/13/19 08:34 98.1 F 75 15 116/81 93 L 03/21/20 06:50 92 L 08/13/19 03:54 67 16 137/69 92 L Date Exam was Performed: 08/13/19 Time Exam was Performed: 13:09 - Problem List Review Problem List Initiated/Reviewed/Updated: No - My Orders Last 24 Hours: Active Orders 24 hr Category Date Time Status Ambulate [RC] QID Care 08/12/19 14:15 Active Clear Liquid Diet [DIET] Diet 08/13/19 Breakfast Active BASIC METABOLIC PANEL,BMP [CHEM] AM Lab 08/14/19 05:11 Ordered BASIC METABOLIC PANEL,BMP [CHEM] AM Lab 08/15/19 05:11 Ordered CBC WITH AUTO DIFF [HEME] AM Lab 08/14/19 05:11 Ordered CBC WITH AUTO DIFF [HEME] AM Lab 08/15/19 05:11 Ordered MAGNESIUM [CHEM] AM Lab 08/14/19 05:11 Ordered MAGNESIUM [CHEM] AM Lab 08/15/19 05:11 Ordered Dextrose 5%-0.9% NaCl [Dextrose 5%-Normal Saline] 1,000 Med 08/13/19 12:00 Active ml IV ASDIRECTED Medication Orders Acetaminophen (Tylenol) 650 mg PO Q4H PRN PRN Reason: Pain (Mild 1-3)/fever Last Admin: 08/13/19 09:43 Dose: 650 mg Albuterol/Ipratropium (Duoneb 3.0-0.5 Mg/3 Ml) 3 ml NEB QIDRT [facility] Last Admin: 08/13/19 08:59 Dose: 3 ml Admin: 08/13/19 06:47 Dose: 3 ml Admin: 08/12/19 20:25 Dose: 3 ml Admin: 08/12/19 16:12 Dose: 3 ml Admin: 08/12/19 09:17 Dose: 3 ml Admin: 08/12/19 06:06 Dose: 3 ml Admin: 08/11/19 20:27 Dose: 3 ml Admin: 08/11/19 15:59 Dose: 3 ml Benzonatate (Tessalon Perles) 100 mg PO BID [facility] Last Admin: 08/13/19 08:48 Dose: 100 mg Admin: 08/12/19 21:20 Dose: 100 mg Admin: 08/12/19 09:25 Dose: 100 mg Admin: 08/11/19 21:08 Dose: 100 mg Admin: 08/11/19 09:40 Dose: 100 mg Admin: 08/10/19 21:30 Dose: 100 mg Admin: 08/10/19 09:23 Dose: 100 mg Admin: 08/09/19 20:12 Dose: 100 mg Admin: 08/09/19 09:24 Dose: 100 mg Admin: 08/08/19 21:21 Dose: 100 mg Admin: 08/08/19 12:40 Dose: 100 mg Benztropine Mesylate (Cogentin) 1 mg PO BEDTIME [facility] Last Admin: 08/12/19 21:19 Dose: 1 mg Admin: 08/11/19 21:07 Dose: 1 mg Admin: 08/10/19 21:31 Dose: 1 mg Admin: 08/09/19 20:11 Dose: 1 mg Admin: 08/08/19 21:21 Dose: 1 mg Cefdinir (Omnicef) 300 mg PO BID [facility] Last Admin: 08/13/19 08:48 Dose: 300 mg Admin: 08/12/19 21:19 Dose: 300 mg Admin: 08/12/19 09:25 Dose: 300 mg Admin: 08/11/19 21:05 Dose: 300 mg Guaifenesin (Mucinex) 600 mg PO BID [facility] Last Admin: 08/13/19 08:48 Dose: 600 mg Admin: 08/12/19 21:20 Dose: 600 mg Admin: 08/12/19 09:25 Dose: 600 mg Admin: 08/11/19 21:07 Dose: 600 mg Admin: 08/11/19 09:40 Dose: 600 mg Admin: 08/10/19 21:30 Dose: 600 mg Admin: 08/10/19 09:23 Dose: 600 mg Admin: 08/09/19 20:08 Dose: 600 mg Admin: 08/09/19 09:24 Dose: 600 mg Admin: 08/08/19 21:21 Dose: 600 mg Admin: 08/08/19 09:45 Dose: 600 mg Dextrose/Sodium Chloride (Dextrose 5%-Normal Saline) 1,000 mls @ 50 mls/hr IV ASDIRECTED [facility] Methadone HCl (Methadone) 5 mg PO BID [facility] Last Admin: 08/13/19 08:48 Dose: 5 mg Admin: 08/12/19 21:19 Dose: 5 mg Admin: 08/12/19 09:25 Dose: 5 mg Admin: 08/11/19 21:05 Dose: 5 mg Admin: 08/11/19 09:40 Dose: 5 mg Admin: 08/10/19 21:30 Dose: 5 mg Admin: 08/10/19 09:21 Dose: 5 mg Admin: 08/09/19 20:09 Dose: 5 mg Admin: 08/09/19 09:24 Dose: 5 mg Admin: 08/08/19 21:22 Dose: 5 mg Nicotine (Habitrol) 21 mg TRDERM DAILY [facility] Last Admin: 08/13/19 08:47 Dose: 21 mg Admin: 08/12/19 09:24 Dose: 21 mg Admin: 08/11/19 09:39 Dose: 21 mg Admin: 08/10/19 09:23 Dose: 21 mg Admin: 08/09/19 09:23 Dose: 21 mg Admin: 08/08/19 09:45 Dose: 21 mg Ondansetron HCl (Zofran Odt) 4 mg PO Q6H PRN PRN Reason: nausea, able to take PO Last Admin: 08/13/19 09:44 Dose: 4 mg Admin: 08/09/19 16:40 Dose: 4 mg Ondansetron HCl (Zofran) 4 mg IVPUSH Q8H PRN PRN Reason: Nausea/Vomiting Last Admin: 08/11/19 15:11 Dose: 4 mg Risperidone (Risperidal) 2 mg PO BEDTIME [facility] Last Admin: 08/12/19 21:19 Dose: 2 mg Admin: 08/11/19 21:04 Dose: 2 mg Admin: 08/10/19 21:31 Dose: 2 mg Admin: 08/09/19 20:09 Dose: 2 mg Admin: 08/08/19 21:21 Dose: 2 mg Risperidone (Risperidal) 1 mg PO DAILY [facility] Last Admin: 08/13/19 08:48 Dose: 1 mg Admin: 08/12/19 09:25 Dose: 1 mg Admin: 08/11/19 09:41 Dose: 1 mg Admin: 08/10/19 09:21 Dose: 1 mg Admin: 08/09/19 09:26 Dose: 1 mg Sodium Chloride (Saline Flush) 10 ml FLUSH ASDIRECTED PRN PRN Reason: Keep Vein Open Last Admin: 08/11/19 16:44 Dose: 10 ml Admin: 08/11/19 16:43 Dose: 10 ml Admin: 08/07/19 17:21 Dose: 10 ml Trazodone HCl (Trazodone) 50 mg PO BEDTIME [facility] Last Admin: 08/12/19 21:20 Dose: 50 mg Admin: 08/11/19 21:04 Dose: 50 mg Admin: 08/10/19 21:31 Dose: 50 mg Admin: 08/09/19 20:12 Dose: 50 mg Admin: 08/08/19 21:21 Dose: 50 mg - Plan Plan (Free Text/Narrative):: Patient passed some flatus and stool yesterday. No abd pain. Abd is soft, NT, ND. - Will start CLD today and see how he does. He tolerated broth and juice but not jellow. - If he fails PO trial, we may consider ex lap
[2019-08-13] MEDS: Ondansetron 4 MG/2 ML SDV IVPUSH PRN ×2 (15:04→21:01)
[2019-08-13] MEDS: Benztropine 1 MG Tab PO SCH (20:55)
[2019-08-13] MEDS: traZODone 50 MG Tab PO SCH (20:56)
[2019-08-14] MEDS: Dextrose 5%-0.9% NaCl 1,000 ML IV SCH ×3 (03:20→23:35)
[2019-08-14] MEDS: Albuterol/Ipratropium 3.0-0.5 MG/3 ML Neb Soln NEB SCH ×4 (06:51→20:36)
[2019-08-14] MEDS ORDERED: Magnesium Hydroxide 400 MG/5 ML Susp 30 ML Cup PO ONE (07:42)
[2019-08-14] MEDS: Benzonatate 100 MG Cap PO SCH ×2 (08:58→21:23)
[2019-08-14] MEDS: Cefdinir 300 MG Cap PO SCH (08:58)
[2019-08-14] MEDS: risperiDONE 1 MG Tab PO SCH ×2 (08:59→21:24)
[2019-08-14] MEDS: Methadone 5 MG Tab PO SCH ×2 (08:59→21:23)
[2019-08-14] MEDS: guaiFENesin 600 MG Tab.ER PO SCH ×2 (09:00→21:23)
[2019-08-14] MEDS: Nicotine 21 MG/24 Hr Patch TRDERM SCH (09:02)
--- NOTE | 2019-08-14 11:19 | PCM.SURGPN ---
- General Info Date of Service: 08/14/19 Functional Status: Reports: Pain Controlled, Other - Review of Systems General: Reports: No Symptoms HEENT: Reports: No Symptoms Pulmonary: Reports: No Symptoms Cardiovascular: Reports: No Symptoms Gastrointestinal: Reports: No Symptoms Genitourinary: Reports: No Symptoms Musculoskeletal: Reports: No Symptoms Skin: Reports: No Symptoms Neurological: Reports: No Symptoms - Patient Data Vitals - Most Recent: Last Vital Signs Temp 98.1 F 08/14/19 08:43 Pulse 100 08/14/19 08:43 Resp 16 08/14/19 08:43 BP 105/65 08/14/19 08:43 Pulse Ox 91 L 08/14/19 09:43 Orthostatic Blood Pressure [ 109/60 Standing] Orthostatic Blood Pressure [ 120/69 Sitting] Orthostatic Blood Pressure [ 120/79 Supine] Weight - Most Recent: 60.419 kg I&O - Last 24 Hours: Intake & Output 08/13/19 08/14/19 08/14/19 22:59 06:59 14:59 Intake Total 1217 611 Output Total 1050 Balance 1217 -439 Lab Results Last 24 Hrs: Laboratory Results - last 24 hr 08/13/19 08/14/19 08/14/19 Range/Units 11:49 04:35 04:35 WBC 9.63 H (4.23-9.07) K/mm3 RBC 4.07 L (4.63-6.08) M/mm3 Hgb 12.9 L (13.7-17.5) gm/dl Hct 39.9 L (40.1-51.0) % MCV 98.0 H (79.0-92.2) fl MCH 31.7 (25.7-32.2) pg MCHC 32.3 (32.2-35.5) g/dl RDW Std Deviation 46.0 H (35.1-43.9) fL Plt Count 341 H (163-337) K/mm3 MPV 9.0 L (9.4-12.3) fl Neut % (Auto) 73.3 H (34.0-67.9) % Lymph % (Auto) 14.5 L (21.8-53.1) % [place] % (Auto) 10.8 (5.3-12.2) % Eos % (Auto) 0.6 L (0.8-7.0) Baso % (Auto) 0.2 (0.1-1.2) % Neut # (Auto) 7.05 H (1.78-5.38) K/mm3 Lymph # (Auto) 1.40 (1.32-3.57) K/mm3 [place] # (Auto) 1.04 H (0.30-0.82) K/mm3 Eos # (Auto) 0.06 (0.04-0.54) K/mm3 Baso # (Auto) 0.02 (0.01-0.08) K/mm3 Sodium 138 (136-145) mEq/L Potassium 4.3 (3.5-5.1) mEq/L Chloride 105 (98-107) mEq/L Carbon Dioxide 26 (21-32) mEq/L Anion Gap 11.3 (5-15) BUN 7 (7-18) mg/dL Creatinine 0.6 L (0.7-1.3) mg/dL Est Cr Clr Drug Dosing 97.90 mL/min Estimated GFR (MDRD) > 60 (>60) mL/min BUN/Creatinine Ratio 11.7 L (14-18) Glucose 119 H (80-115) mg/dL POC Glucose 145 H (80-115) mg/dL Calcium 7.9 L (8.5-10.1) mg/dL Magnesium 1.9 (1.8-2.4) mg/dl Albumin (3.4-5.0) g/dl 08/14/19 Range/Units 10:20 WBC (4.23-9.07) K/mm3 RBC (4.63-6.08) M/mm3 Hgb (13.7-17.5) gm/dl Hct (40.1-51.0) % MCV (79.0-92.2) fl MCH (25.7-32.2) pg MCHC (32.2-35.5) g/dl RDW Std Deviation (35.1-43.9) fL Plt Count (163-337) K/mm3 MPV (9.4-12.3) fl Neut % (Auto) (34.0-67.9) % Lymph % (Auto) (21.8-53.1) % [place] % (Auto) (5.3-12.2) % Eos % (Auto) (0.8-7.0) Baso % (Auto) (0.1-1.2) % Neut # (Auto) (1.78-5.38) K/mm3 Lymph # (Auto) (1.32-3.57) K/mm3 [place] # (Auto) (0.30-0.82) K/mm3 Eos # (Auto) (0.04-0.54) K/mm3 Baso # (Auto) (0.01-0.08) K/mm3 Sodium (136-145) mEq/L Potassium (3.5-5.1) mEq/L Chloride (98-107) mEq/L Carbon Dioxide (21-32) mEq/L Anion Gap (5-15) BUN (7-18) mg/dL Creatinine (0.7-1.3) mg/dL Est Cr Clr Drug Dosing mL/min Estimated GFR (MDRD) (>60) mL/min BUN/Creatinine Ratio (14-18) Glucose (80-115) mg/dL POC Glucose (80-115) mg/dL Calcium (8.5-10.1) mg/dL Magnesium (1.8-2.4) mg/dl Albumin 3.1 L (3.4-5.0) g/dl Dmitriy Results Last 24 Hrs: Microbiology 08/07/19 18:45 Aerobic Blood Culture - Preliminary Blood - Venous - Lab Draw NO GROWTH AFTER 6 DAYS Anaerobic Blood Culture - Preliminary NO GROWTH AFTER 6 DAYS 08/07/19 18:35 Aerobic Blood Culture - Preliminary Blood - Venous NO GROWTH AFTER 6 DAYS Anaerobic Blood Culture - Preliminary NO GROWTH AFTER 6 DAYS Med Orders - Current: Current Medications Acetaminophen (Tylenol) 650 mg PO Q4H PRN PRN Reason: Pain (Mild 1-3)/fever Last Admin: 08/13/19 09:43 Dose: 650 mg Albuterol/Ipratropium (Duoneb 3.0-0.5 Mg/3 Ml) 3 ml NEB QIDRT [facility] Last Admin: 08/14/19 09:08 Dose: 3 ml Benzonatate (Tessalon Perles) 100 mg PO BID [facility] Last Admin: 08/14/19 08:58 Dose: 100 mg Benztropine Mesylate (Cogentin) 1 mg PO BEDTIME [facility] Last Admin: 08/13/19 20:55 Dose: 1 mg Cefdinir (Omnicef) 300 mg PO BID [facility] Last Admin: 08/14/19 08:58 Dose: 300 mg Guaifenesin (Mucinex) 600 mg PO BID [facility] Last Admin: 08/14/19 09:00 Dose: 600 mg Dextrose/Sodium Chloride (Dextrose 5%-Normal Saline) 1,000 mls @ 125 mls/hr IV ASDIRECTED [facility] Last Admin: 08/14/19 03:20 Dose: 75 mls/hr Methadone HCl (Methadone) 5 mg PO BID [facility] Last Admin: 08/14/19 08:59 Dose: 5 mg Nicotine (Habitrol) 21 mg TRDERM DAILY [facility] Last Admin: 08/14/19 09:02 Dose: Not Given Ondansetron HCl (Zofran Odt) 4 mg PO Q6H PRN PRN Reason: nausea, able to take PO Last Admin: 08/13/19 09:44 Dose: 4 mg Ondansetron HCl (Zofran) 4 mg IVPUSH Q4H PRN PRN Reason: Nausea/Vomiting Last Admin: 08/13/19 21:01 Dose: 4 mg Risperidone (Risperidal) 2 mg PO BEDTIME [facility] Last Admin: 08/13/19 20:56 Dose: 2 mg Risperidone (Risperidal) 1 mg PO DAILY [facility] Last Admin: 08/14/19 08:59 Dose: 1 mg Sodium Chloride (Saline Flush) 10 ml FLUSH ASDIRECTED PRN PRN Reason: Keep Vein Open Last Admin: 08/11/19 16:44 Dose: 10 ml Trazodone HCl (Trazodone) 50 mg PO BEDTIME [facility] Last Admin: 08/13/19 20:56 Dose: 50 mg Discontinued Medications Azithromycin (Zithromax) 250 mg PO BEDTIME [facility] Last Admin: 08/11/19 21:06 Dose: 250 mg Ceftriaxone Sodium (Rocephin) Confirm Administered Dose 2 gm IV .STK-MED ONE Stop: 08/07/19 19:45 Last Admin: 08/07/19 19:51 Dose: Not Given Diatrizoate Meglum/Diatrizoate Sod (Gastrografin 37%) 90 ml PO ONETIME ONE Stop: 08/11/19 16:42 Last Admin: 08/11/19 16:43 Dose: 90 ml Guaifenesin (Mucinex) 600 mg PO BID [facility] Last Admin: 08/08/19 12:51 Dose: Not Given Sodium Chloride (Normal Saline) 1,000 mls @ 150 mls/hr IV ASDIRECTED [facility] Last Admin: 08/08/19 06:02 Dose: 150 mls/hr Ceftriaxone Sodium 2 gm/ (Sodium Chloride) 100 mls @ 200 mls/hr IV ONETIME ONE Stop: 08/07/19 20:00 Last Admin: 08/07/19 19:47 Dose: Not Given Magnesium Sulfate 2 gm/ Premix 50 mls @ 25 mls/hr IV ONETIME ONE Stop: 08/07/19 21:42 Last Admin: 08/07/19 20:24 Dose: 25 mls/hr Ceftriaxone Sodium 2 gm/ (Sodium Chloride) 100 mls @ 200 mls/hr IV Q24H [facility] Stop: 08/07/19 20:15 Last Admin: 08/07/19 19:49 Dose: 200 mls/hr Sodium Chloride (Normal Saline) Confirm Administered Dose 100 mls @ as directed .ROUTE .STK-MED ONE Stop: 08/07/19 19:45 Last Admin: 08/07/19 19:51 Dose: Not Given Azithromycin 500 mg/ Sodium (Chloride) 250 mls @ 250 mls/hr IV Q24H [facility] Last Admin: 08/10/19 22:08 Dose: 250 mls/hr Ceftriaxone Sodium 2 gm/ (Sodium Chloride) 100 mls @ 200 mls/hr IV Q24H [facility] Last Admin: 08/10/19 21:25 Dose: 200 mls/hr Sodium Chloride (Normal Saline) 1,000 mls @ 75 mls/hr IV ASDIRECTED [facility] Sodium Phosphate 30 mmole/ (Sodium Chloride) 260 mls @ 130 mls/hr IV Q2H [facility] Stop: 08/10/19 15:59 Last Admin: 08/10/19 15:12 Dose: 130 mls/hr Magnesium Sulfate 2 gm/ Premix 50 mls @ 25 mls/hr IV ONETIME ONE Stop: 08/11/19 11:08 Last Admin: 08/11/19 09:38 Dose: 25 mls/hr Sodium Chloride (Normal Saline) 1,000 mls @ 75 mls/hr IV ASDIRECTED [facility] Last Admin: 08/12/19 09:24 Dose: 75 mls/hr Sodium Chloride (Normal Saline) Confirm Administered Dose 1,000 mls @ as directed .ROUTE .STK-MED ONE Stop: 08/11/19 17:34 Last Admin: 08/11/19 17:43 Dose: Not Given Dextrose/Sodium Chloride (Dextrose 5%-Normal Saline) 1,000 mls @ 100 mls/hr IV ASDIRECTED [facility] Last Infusion: 08/13/19 12:35 Dose: 50 mls/hr Dextrose/Sodium Chloride (Dextrose 5%-Normal Saline) 1,000 mls @ 50 mls/hr IV ASDIRECTED [facility] Influenza Virus Vaccine (Pharmacy To Dose - Influenza Vaccine) 1 each IM ONETIME ONE Stop: 08/07/19 22:46 Influenza Virus Vaccine (Fluzone High-Dose Syringe) 180 mcg IM .ONCE ONE Stop: 08/08/19 10:01 Iopamidol (Isovue-300 (61%)) 100 ml IVPUSH ONETIME ONE Stop: 08/11/19 16:42 Last Admin: 08/11/19 16:44 Dose: 100 ml Ipratropium [place] (Atrovent) 0.5 mg NEB Q4HRRT [facility] Last Admin: 08/11/19 13:29 Dose: 0.5 mg Magnesium Hydroxide (Milk Of Magnesia) 30 ml PO ONETIME ONE Stop: 08/14/19 07:43 Last Admin: 08/14/19 08:58 Dose: 30 ml Ondansetron HCl (Zofran) 4 mg IVPUSH ONETIME ONE Stop: 08/07/19 16:51 Last Admin: 08/07/19 17:20 Dose: 4 mg Ondansetron HCl (Zofran) 4 mg IVPUSH ONETIME ONE Stop: 08/07/19 19:12 Last Admin: 08/07/19 19:51 Dose: 4 mg Ondansetron HCl (Zofran) 4 mg IV Q6H [facility] Last Admin: 08/08/19 06:03 Dose: Not Given Ondansetron HCl (Zofran) 4 mg IV Q6H [facility] Last Admin: 08/08/19 12:40 Dose: 4 mg Ondansetron HCl (Zofran) 4 mg IVPUSH Q8H PRN PRN Reason: Nausea/Vomiting Last Admin: 08/13/19 15:04 Dose: 4 mg Oseltamivir Phosphate (Tamiflu) 75 mg PO BID [facility] Stop: 08/12/19 09:01 Last Admin: 08/12/19 09:24 Dose: 75 mg Sodium Chloride (Saline Flush) 10 ml FLUSH ONETIME ONE Stop: 08/11/19 16:42 Last Admin: 08/11/19 16:46 Dose: 10 ml - Exam General: Alert, Oriented, Cooperative HEENT: Pupils Equal Cardiovascular: Regular Rate, Regular Rhythm, No Murmurs GI/Abdominal Exam: Soft, Non-Tender, Mass (RUQ) Skin: Warm, Dry, Intact Sepsis Event Note - Evaluation Sepsis Screening Result: No Definite Risk - Focused Exam Vital Signs: Vital Signs Temp Pulse Resp BP Pulse Ox Pulse Ox Pulse Ox 08/14/19 09:43 91 L 08/14/19 09:08 86 L 08/14/19 08:43 98.1 F 100 16 105/65 90 L 08/14/19 03:29 92 91 L 08/14/19 03:28 99.0 F 90 16 103/60 Date Exam was Performed: 08/14/19 Time Exam was Performed: 11:12 - Problem List Review Problem List Initiated/Reviewed/Updated: No - My Orders Last 24 Hours: Active Orders 24 hr Category Date Time Status Gastrointestinal Tube Mgmt [RC] 04,16 Care 08/13/19 18:00 Active Nothing Per Oral Diet [DIET] Diet 08/13/19 Lunch Active CXR [Chest 1V Frontal] [CR] Routine Exams 08/14/19 10:10 Taken Chest 1V-Tube Placement Chk NC [CR] Stat Exams 08/13/19 17:59 Taken BASIC METABOLIC PANEL,BMP [CHEM] AM Lab 08/15/19 05:11 Ordered CBC WITH AUTO DIFF [HEME] AM Lab 08/15/19 05:11 Ordered MAGNESIUM [CHEM] AM Lab 08/15/19 05:11 Ordered PACKED CELLS [RED BLOOD CELLS LP] [BBK] Routine Lab 08/14/19 10:20 Received PREALBUMIN [REF] Routine Lab 08/14/19 10:20 Received TYPE AND SCREEN [BBK] Routine Lab 08/14/19 10:20 Received Dextrose 5%-0.9% NaCl [Dextrose 5%-Normal Saline] 1,000 Med 08/13/19 23:30 Active ml IV ASDIRECTED Ondansetron [Zofran] Med 08/13/19 20:56 Active 4 mg IVPUSH Q4H PRN NG [Nasogastric Orogastric Tube Insertion] [OM.PC] Ot 08/13/19 18:00 Ordered Routine Schedule Procedure [COMM] Timed Ot 08/15/19 08:00 Ordered Medication Orders Acetaminophen (Tylenol) 650 mg PO Q4H PRN PRN Reason: Pain (Mild 1-3)/fever Last Admin: 08/13/19 09:43 Dose: 650 mg Albuterol/Ipratropium (Duoneb 3.0-0.5 Mg/3 Ml) 3 ml NEB QIDRT [facility] Last Admin: 08/14/19 09:08 Dose: 3 ml Admin: 08/14/19 06:51 Dose: Not Given Admin: 08/13/19 20:33 Dose: Not Given Admin: 08/13/19 16:14 Dose: Not Given Admin: 08/13/19 08:59 Dose: 3 ml Admin: 08/13/19 06:47 Dose: 3 ml Admin: 08/12/19 20:25 Dose: 3 ml Admin: 08/12/19 16:12 Dose: 3 ml Admin: 08/12/19 09:17 Dose: 3 ml Admin: 08/12/19 06:06 Dose: 3 ml Admin: 08/11/19 20:27 Dose: 3 ml Admin: 08/11/19 15:59 Dose: 3 ml Benzonatate (Tessalon Perles) 100 mg PO BID [facility] Last Admin: 08/14/19 08:58 Dose: 100 mg Admin: 08/13/19 20:55 Dose: 100 mg Admin: 08/13/19 08:48 Dose: 100 mg Admin: 08/12/19 21:20 Dose: 100 mg Admin: 08/12/19 09:25 Dose: 100 mg Admin: 08/11/19 21:08 Dose: 100 mg Admin: 08/11/19 09:40 Dose: 100 mg Admin: 08/10/19 21:30 Dose: 100 mg Admin: 08/10/19 09:23 Dose: 100 mg Admin: 08/09/19 20:12 Dose: 100 mg Admin: 08/09/19 09:24 Dose: 100 mg Admin: 08/08/19 21:21 Dose: 100 mg Admin: 08/08/19 12:40 Dose: 100 mg Benztropine Mesylate (Cogentin) 1 mg PO BEDTIME [facility] Last Admin: 08/13/19 20:55 Dose: 1 mg Admin: 08/12/19 21:19 Dose: 1 mg Admin: 08/11/19 21:07 Dose: 1 mg Admin: 08/10/19 21:31 Dose: 1 mg Admin: 08/09/19 20:11 Dose: 1 mg Admin: 08/08/19 21:21 Dose: 1 mg Cefdinir (Omnicef) 300 mg PO BID [facility] Last Admin: 08/14/19 08:58 Dose: 300 mg Admin: 08/13/19 20:56 Dose: 300 mg Admin: 08/13/19 08:48 Dose: 300 mg Admin: 08/12/19 21:19 Dose: 300 mg Admin: 08/12/19 09:25 Dose: 300 mg Admin: 08/11/19 21:05 Dose: 300 mg Guaifenesin (Mucinex) 600 mg PO BID [facility] Last Admin: 08/14/19 09:00 Dose: 600 mg Admin: 08/13/19 20:55 Dose: 600 mg Admin: 08/13/19 08:48 Dose: 600 mg Admin: 08/12/19 21:20 Dose: 600 mg Admin: 08/12/19 09:25 Dose: 600 mg Admin: 08/11/19 21:07 Dose: 600 mg Admin: 08/11/19 09:40 Dose: 600 mg Admin: 08/10/19 21:30 Dose: 600 mg Admin: 08/10/19 09:23 Dose: 600 mg Admin: 08/09/19 20:08 Dose: 600 mg Admin: 08/09/19 09:24 Dose: 600 mg Admin: 08/08/19 21:21 Dose: 600 mg Admin: 08/08/19 09:45 Dose: 600 mg Dextrose/Sodium Chloride (Dextrose 5%-Normal Saline) 1,000 mls @ 125 mls/hr IV ASDIRECTED [facility] Last Admin: 08/14/19 03:20 Dose: 75 mls/hr Methadone HCl (Methadone) 5 mg PO BID [facility] Last Admin: 08/14/19 08:59 Dose: 5 mg Admin: 08/13/19 20:56 Dose: 5 mg Admin: 08/13/19 08:48 Dose: 5 mg Admin: 08/12/19 21:19 Dose: 5 mg Admin: 08/12/19 09:25 Dose: 5 mg Admin: 08/11/19 21:05 Dose: 5 mg Admin: 08/11/19 09:40 Dose: 5 mg Admin: 08/10/19 21:30 Dose: 5 mg Admin: 08/10/19 09:21 Dose: 5 mg Admin: 08/09/19 20:09 Dose: 5 mg Admin: 08/09/19 09:24 Dose: 5 mg Admin: 08/08/19 21:22 Dose: 5 mg Nicotine (Habitrol) 21 mg TRDERM DAILY [facility] Last Admin: 08/14/19 09:02 Dose: Not Given Admin: 08/13/19 08:47 Dose: 21 mg Admin: 08/12/19 09:24 Dose: 21 mg Admin: 08/11/19 09:39 Dose: 21 mg Admin: 08/10/19 09:23 Dose: 21 mg Admin: 08/09/19 09:23 Dose: 21 mg Admin: 08/08/19 09:45 Dose: 21 mg Ondansetron HCl (Zofran Odt) 4 mg PO Q6H PRN PRN Reason: nausea, able to take PO Last Admin: 08/13/19 09:44 Dose: 4 mg Admin: 08/09/19 16:40 Dose: 4 mg Ondansetron HCl (Zofran) 4 mg IVPUSH Q4H PRN PRN Reason: Nausea/Vomiting Last Admin: 08/13/19 21:01 Dose: 4 mg Risperidone (Risperidal) 2 mg PO BEDTIME [facility] Last Admin: 08/13/19 20:56 Dose: 2 mg Admin: 08/12/19 21:19 Dose: 2 mg Admin: 08/11/19 21:04 Dose: 2 mg Admin: 08/10/19 21:31 Dose: 2 mg Admin: 08/09/19 20:09 Dose: 2 mg Admin: 08/08/19 21:21 Dose: 2 mg Risperidone (Risperidal) 1 mg PO DAILY [facility] Last Admin: 08/14/19 08:59 Dose: 1 mg Admin: 08/13/19 08:48 Dose: 1 mg Admin: 08/12/19 09:25 Dose: 1 mg Admin: 08/11/19 09:41 Dose: 1 mg Admin: 08/10/19 09:21 Dose: 1 mg Admin: 08/09/19 09:26 Dose: 1 mg Sodium Chloride (Saline Flush) 10 ml FLUSH ASDIRECTED PRN PRN Reason: Keep Vein Open Last Admin: 08/11/19 16:44 Dose: 10 ml Admin: 08/11/19 16:43 Dose: 10 ml Admin: 08/07/19 17:21 Dose: 10 ml Trazodone HCl (Trazodone) 50 mg PO BEDTIME [facility] Last Admin: 08/13/19 20:56 Dose: 50 mg Admin: 08/12/19 21:20 Dose: 50 mg Admin: 08/11/19 21:04 Dose: 50 mg Admin: 08/10/19 21:31 Dose: 50 mg Admin: 08/09/19 20:12 Dose: 50 mg Admin: 08/08/19 21:21 Dose: 50 mg - Assessment Assessment (Free Text/Narrative):: Patient got worse yesterday as he started vomiting. NGT was placed and put out 1L overnight. Output is bilious. Patient is otherwise complaining of no abd pain. No BM or flatus. Symptoms are better with NGT. Pt is recovering from pneumonia was doing well on room air, no fever, wbc normal until yesterday when he started vomiting again and sats dropped. now on 1 -2L of oxygen by nasal cannula. - Plan Plan (Free Text/Narrative):: Patient has never has abdominal surgery before and now has pSBO that is symptomatic and persistent. I recommended we proceed with exploratory laparotomy , possible bowel resection, possible cyst resection, possible ostomy. I would also placed a CVC for TPN during surgery given his chronic PO intolerance and malnutrition. I discussed with the patient risks,benefits and alternatives. Risks discussed include injury to adjacent structures, bleeding, infection, wound complications, and need for additional interventions. The patient agreed and informed consent was obtained. The patient was completely alert, oriented and able to comprehend the discussion today. He asked appropriate questions which were answered. Patient reports 10-15 minutes of SOB in the morning but otherwise no SOB at home. he is otherwise physically active, No chest pain, no prior cardiac issues. METS > 4. - will get type and cross for 2 units - will obtain albumin and pre-albumin labs - continue NGT, cont IVF at 125 - ambulate as tolerated
--- NOTE | 2019-08-14 15:26 | PCM.PREANE ---
<Teagan Polk M - Last Filed: 08/14/19 15:21> Preanesthetic Assessment - Procedure Proposed Procedure: exploratory laparoscopy - Anesthesia/Transfusion/Family Hx Anesthesia History: Prior Anesthesia Without Reaction Type of Anesthesia Reaction: Other (see below) (hard to wake up) Family History of Anesthesia Reaction: No Transfusion History: Prior Transfusion Without Reaction - Review of Systems General: Appetite (decreased) Pulmonary: Shortness of Breath, Cough Cardiovascular: Dyspnea on Exertion (depends on day) Gastrointestinal: Decreased Appetite, Nausea Neurological: No Symptoms Other: Reports: Easy Bruising, Liver Problems (cirrhosis) - Physical Assessment NPO Status Date: 08/14/19 NPO Status Time: 15:25 (ng in place) Vital Signs: Last Vital Signs Temp 98.2 F 08/15/19 03:23 Pulse 89 08/15/19 05:22 Resp 16 08/15/19 03:23 BP 135/75 08/15/19 03:23 Pulse Ox 94 L 08/15/19 09:17 Orthostatic Blood Pressure [ 109/60 Standing] Orthostatic Blood Pressure [ 120/69 Sitting] Orthostatic Blood Pressure [ 120/79 Supine] Height: 1.78 m Weight: 60.419 kg ASA Class: 3 Mental Status: Alert & Oriented x3 Airway Class: Mallampati = 1 Dentition: Reports: Missing Tooth/Teeth (no teeth) Thyro-Mental Finger Breadths: 3 Mouth Opening Finger Breadths: 3 ROM/Head Extension: Full Lungs: Decreased Breath Sounds Cardiovascular: Regular Rate, Regular Rhythm, No Murmurs - Lab Values: Laboratory Last Values WBC 8.28 K/mm3 (4.23-9.07) 08/15/19 05:05 RBC 4.01 M/mm3 (4.63-6.08) L 08/15/19 05:05 Hgb 13.0 gm/dl (13.7-17.5) L 08/15/19 05:05 Hct 39.4 % (40.1-51.0) L 08/15/19 05:05 MCV 98.3 fl (79.0-92.2) H 08/15/19 05:05 MCH 32.4 pg (25.7-32.2) H 08/15/19 05:05 MCHC 33.0 g/dl (32.2-35.5) 08/15/19 05:05 RDW Std Deviation 46.1 fL (35.1-43.9) H 08/15/19 05:05 Plt Count 369 K/mm3 (163-337) H 08/15/19 05:05 MPV 9.0 fl (9.4-12.3) L 08/15/19 05:05 Neut % (Auto) 70.7 % (34.0-67.9) H 08/15/19 05:05 Lymph % (Auto) 15.9 % (21.8-53.1) L 08/15/19 05:05 [place] % (Auto) 11.8 % (5.3-12.2) 08/15/19 05:05 Eos % (Auto) 1.0 (0.8-7.0) 08/15/19 05:05 Baso % (Auto) 0.2 % (0.1-1.2) 08/15/19 05:05 Neut # (Auto) 5.85 K/mm3 (1.78-5.38) H 08/15/19 05:05 Lymph # (Auto) 1.32 K/mm3 (1.32-3.57) 08/15/19 05:05 [place] # (Auto) 0.98 K/mm3 (0.30-0.82) H 08/15/19 05:05 Eos # (Auto) 0.08 K/mm3 (0.04-0.54) 08/15/19 05:05 Baso # (Auto) 0.02 K/mm3 (0.01-0.08) 08/15/19 05:05 Manual Slide Review Normal smear 08/13/19 05:08 PT 11.9 SECONDS (9.7-12.0) 08/15/19 05:05 INR 1.10 08/15/19 05:05 APTT 29 SECONDS (22-31) 08/15/19 05:05 Puncture Site Rt radial 08/07/19 22:00 ABG pH 7.41 (7.35-7.45) 08/07/19 22:00 ABG pCO2 43.3 mmHg (35.0-45.0) 08/07/19 22:00 ABG pO2 62.0 mmHg (80.0-100.0) L 08/07/19 22:00 ABG HCO3 26.8 meq/L (22.0-26.0) H 08/07/19 22:00 ABG O2 Saturation 89.9 % (96.0-97.0) L 08/07/19 22:00 ABG Base Excess 2.3 (-2-2.0) H 08/07/19 22:00 Juan Test Positive 08/07/19 22:00 A-a Gradient 84 mmHg 08/07/19 22:00 O2 Delivery Device Cannula 08/07/19 22:00 Oxygen Flow Rate 2.0 08/07/19 22:00 FiO2 28.00 % (21.00-100.00) 08/07/19 22:00 Sodium 142 mEq/L (136-145) 08/15/19 05:05 Potassium 4.0 mEq/L (3.5-5.1) 08/15/19 05:05 Chloride 108 mEq/L (98-107) H 08/15/19 05:05 Carbon Dioxide 28 mEq/L (21-32) 08/15/19 05:05 Anion Gap 10.0 (5-15) 08/15/19 05:05 BUN 7 mg/dL (7-18) 08/15/19 05:05 Creatinine 0.8 mg/dL (0.7-1.3) 08/15/19 05:05 Est Cr Clr Drug Dosing 73.26 mL/min 08/15/19 05:05 Estimated GFR (MDRD) > 60 mL/min (>60) 08/15/19 05:05 BUN/Creatinine Ratio 8.8 (14-18) L 08/15/19 05:05 Glucose 129 mg/dL (80-115) H 08/15/19 05:05 POC Glucose 145 mg/dL (80-115) H 08/13/19 11:49 Lactic Acid 1.1 mmol/L (0.4-2.0) 08/07/19 18:35 Calcium 8.3 mg/dL (8.5-10.1) L 08/15/19 05:05 Phosphorus 2.7 mg/dL (2.6-4.7) 08/12/19 05:25 Magnesium 2.1 mg/dl (1.8-2.4) 08/15/19 05:05 Total Bilirubin 0.6 mg/dL (0.2-1.0) 08/07/19 17:20 AST 21 U/L (15-37) 08/07/19 17:20 ALT 20 U/L (16-63) 08/07/19 17:20 Alkaline Phosphatase 48 U/L (46-116) 08/07/19 17:20 Troponin I < 0.017 ng/mL (0.00-0.056) 08/14/19 14:30 C-Reactive Protein 21.5 mg/dL (<1.0) H* 08/07/19 17:20 Total Protein 6.2 g/dl (6.4-8.2) L 08/07/19 17:20 Albumin 3.1 g/dl (3.4-5.0) L 08/14/19 10:20 Globulin 2.9 gm/dL 08/07/19 17:20 Albumin/Globulin Ratio 1.1 (1-2) 08/07/19 17:20 Prealbumin 5.9 mg/dL (17.0-34.0) L 08/08/19 06:06 Vitamin B12 479 pg/ml (193-986) 08/08/19 06:06 Folate 15.4 ng/mL (8.6-58.9) 08/08/19 06:06 Procalcitonin 0.14 ng/mL (<0.10) H 08/11/19 05:33 Urine Color Yellow (Yellow) 08/07/19 19:25 Urine Appearance Clear (Clear) 08/07/19 19:25 Urine pH 6.0 (5.0-8.0) 08/07/19 19:25 Ur Specific [place] 1.025 (1.005-1.030) 08/07/19 19:25 Urine Protein 2+ (Negative) H 08/07/19 19:25 Urine Glucose (UA) Negative (Negative) 08/07/19 19:25 Urine Ketones 2+ (Negative) H 08/07/19 19:25 Urine Occult Blood 2+ (Negative) H 08/07/19 19:25 Urine Nitrite Negative (Negative) 08/07/19 19: Urine Bilirubin 1+ (Negative) H 08/07/19 19:25 Urine Urobilinogen 0.2 (0.2-1.0) 08/07/19 19:25 Ur Leukocyte Esterase Negative (Negative) 08/07/19 19:25 Urine RBC 5-10 /hpf (0-5) H 08/07/19 19:25 Urine WBC 0-5 /hpf (0-5) 08/07/19 19:25 Ur Squamous Epith Cells 0-5 /hpf (0-5) 08/07/19 19:25 Urine Bacteria Not seen /hpf (FEW) 08/07/19 19:25 Urine Mucus Not seen /hpf (FEW) 08/07/19 19:25 Blood Type O POSITIVE 08/14/19 10:20 Gel Antibody Screen Negative 08/14/19 10:20 Crossmatch See Detail 08/14/19 10:20 - Allergies Allergies/Adverse Reactions: Allergies Allergy/AdvReac Type Severity Reaction Status Date / Time No Known Allergies Allergy Verified 08/07/19 22:18 - Blood Blood Available: Yes - Acknowledgements Anesthesia Type Planned: General Anesthesia, Epidural Pt an Appropriate Candidate for the Planned Anesthesia: Yes Alternatives and Risks of Anesthesia Discussed w Pt/Guardian: Yes Pt/Guardian Understands and Agrees with Anesthesia Plan: Yes PreAnesthesia Questionnaire HEENT History: Reports: Other (See Below) Other HEENT History: wears glasses, has no natural teeth and does not have a set of dentures Respiratory History: Reports: Pneumonia, Recurrent, Other (See Below) (chest xray shows atelectasis of pneumonia right base- nodule left) Gastrointestinal History: Reports: Cirrhosis, GERD, Other (See Below) Other Gastrointestinal History: paracentesis Psychiatric History: Reports: Schizophrenia Dermatologic History: Reports: Other (See Below) Other Dermatologic History: reports rash to buttocks - Infectious Disease History Infectious Disease History: Reports: Other (See Below) - Past Surgical History HEENT Surgical History: Reports: DONOVAN Musculoskeletal Surgical History: Reports: Other (See Below) (right hand area) Dermatological Surgical History: Reports: None - SUBSTANCE USE Smoking Status *Q: Current Every Day Smoker Tobacco Use Within Last Twelve Months: Cigarettes Second Hand Smoke Exposure: Yes Days Per Week of Alcohol Use: 0 (denies- past history use) Recreational Drug Use History: No - HOME MEDS Home Medications: Home Meds Omeprazole 20 mg PO DAILY 08/07/19 [History] Acetaminophen [Tylenol Extra Strength] 500 mg PO Q12HR PRN 08/08/19 [History] Benztropine [Cogentin] 1 mg PO BEDTIME 08/08/19 [History] Methadone 5 mg PO BID 08/08/19 [History] risperiDONE 1 mg PO DAILY 08/08/19 [History] risperiDONE [Risperdal] 2 mg PO BEDTIME 08/08/19 [History] traZODone HCl [Trazodone HCl] 50 mg PO BEDTIME 08/08/19 [History] - CURRENT (IN HOUSE) MEDS Current Meds: Current Medications Acetaminophen (Tylenol) 650 mg PO Q4H PRN PRN Reason: Pain (Mild 1-3)/fever Last Admin: 08/13/19 09:43 Dose: 650 mg Albuterol/Ipratropium (Duoneb 3.0-0.5 Mg/3 Ml) 3 ml NEB QIDRT [facility] Last Admin: 08/15/19 09:16 Dose: 3 ml Benzonatate (Tessalon Perles) 100 mg PO BID [facility] Last Admin: 08/15/19 10:49 Dose: Not Given Benztropine Mesylate (Cogentin) 1 mg PO BEDTIME [facility] Last Admin: 08/14/19 21:23 Dose: 1 mg Guaifenesin (Mucinex) 600 mg PO BID [facility] Last Admin: 08/15/19 10:49 Dose: Not Given Dextrose/Sodium Chloride (Dextrose 5%-Normal Saline) 1,000 mls @ 125 mls/hr IV ASDIRECTED [facility] Last Admin: 08/15/19 07:45 Dose: 125 mls/hr Methadone HCl (Methadone) 5 mg PO BID [facility] Last Admin: 08/15/19 10:48 Dose: Not Given Nicotine (Habitrol) 21 mg TRDERM DAILY [facility] Last Admin: 08/15/19 10:48 Dose: Not Given Ondansetron HCl (Zofran Odt) 4 mg PO Q6H PRN PRN Reason: nausea, able to take PO Last Admin: 08/13/19 09:44 Dose: 4 mg Ondansetron HCl (Zofran) 4 mg IVPUSH Q4H PRN PRN Reason: Nausea/Vomiting Last Admin: 08/13/19 21:01 Dose: 4 mg Risperidone (Risperidal) 2 mg PO BEDTIME [facility] Last Admin: 08/14/19 21:24 Dose: 2 mg Risperidone (Risperidal) 1 mg PO DAILY [facility] Last Admin: 08/15/19 10:49 Dose: Not Given Sodium Chloride (Saline Flush) 10 ml FLUSH ASDIRECTED PRN PRN Reason: Keep Vein Open Last Admin: 08/11/19 16:44 Dose: 10 ml Trazodone HCl (Trazodone) 50 mg PO BEDTIME [facility] Last Admin: 08/14/19 21:23 Dose: 50 mg Discontinued Medications Azithromycin (Zithromax) 250 mg PO BEDTIME [facility] Last Admin: 08/11/19 21:06 Dose: 250 mg Cefdinir (Omnicef) 300 mg PO BID [facility] Last Admin: 08/14/19 08:58 Dose: 300 mg Ceftriaxone Sodium (Rocephin) Confirm Administered Dose 2 gm IV .STK-MED ONE Stop: 08/07/19 19:45 Last Admin: 08/07/19 19:51 Dose: Not Given Diatrizoate Meglum/Diatrizoate Sod (Gastrografin 37%) 90 ml PO ONETIME ONE Stop: 08/11/19 16:42 Last Admin: 08/11/19 16:43 Dose: 90 ml Guaifenesin (Mucinex) 600 mg PO BID [facility] Last Admin: 08/08/19 12:51 Dose: Not Given Sodium Chloride (Normal Saline) 1,000 mls @ 150 mls/hr IV ASDIRECTED [facility] Last Admin: 08/08/19 06:02 Dose: 150 mls/hr Ceftriaxone Sodium 2 gm/ (Sodium Chloride) 100 mls @ 200 mls/hr IV ONETIME ONE Stop: 08/07/19 20:00 Last Admin: 08/07/19 19:47 Dose: Not Given Magnesium Sulfate 2 gm/ Premix 50 mls @ 25 mls/hr IV ONETIME ONE Stop: 08/07/19 21:42 Last Admin: 08/07/19 20:24 Dose: 25 mls/hr Ceftriaxone Sodium 2 gm/ (Sodium Chloride) 100 mls @ 200 mls/hr IV Q24H STA Stop: 08/07/19 20:15 Last Admin: 08/07/19 19:49 Dose: 200 mls/hr Sodium Chloride (Normal Saline) Confirm Administered Dose 100 mls @ as directed .ROUTE .STK-MED ONE Stop: 08/07/19 19:45 Last Admin: 08/07/19 19:51 Dose: Not Given Azithromycin 500 mg/ Sodium (Chloride) 250 mls @ 250 mls/hr IV Q24H [facility] Last Admin: 08/10/19 22:08 Dose: 250 mls/hr Ceftriaxone Sodium 2 gm/ (Sodium Chloride) 100 mls @ 200 mls/hr IV Q24H [facility] Last Admin: 08/10/19 21:25 Dose: 200 mls/hr Sodium Chloride (Normal Saline) 1,000 mls @ 75 mls/hr IV ASDIRECTED [facility] Sodium Phosphate 30 mmole/ (Sodium Chloride) 260 mls @ 130 mls/hr IV Q2H [facility] Stop: 08/10/19 15:59 Last Admin: 08/10/19 15:12 Dose: 130 mls/hr Magnesium Sulfate 2 gm/ Premix 50 mls @ 25 mls/hr IV ONETIME ONE Stop: 08/11/19 11:08 Last Admin: 08/11/19 09:38 Dose: 25 mls/hr Sodium Chloride (Normal Saline) 1,000 mls @ 75 mls/hr IV ASDIRECTED [facility] Last Admin: 08/12/19 09:24 Dose: 75 mls/hr Sodium Chloride (Normal Saline) Confirm Administered Dose 1,000 mls @ as directed .ROUTE .STK-MED ONE Stop: 08/11/19 17:34 Last Admin: 08/11/19 17:43 Dose: Not Given Dextrose/Sodium Chloride (Dextrose 5%-Normal Saline) 1,000 mls @ 100 mls/hr IV ASDIRECTED [facility] Last Infusion: 08/13/19 12:35 Dose: 50 mls/hr Dextrose/Sodium Chloride (Dextrose 5%-Normal Saline) 1,000 mls @ 50 mls/hr IV ASDIRECTED [facility] Influenza Virus Vaccine (Pharmacy To Dose - Influenza Vaccine) 1 each IM ONETIME ONE Stop: 08/07/19 22:46 Influenza Virus Vaccine (Fluzone High-Dose Syringe) 180 mcg IM .ONCE ONE Stop: 08/08/19 10:01 Iopamidol (Isovue-300 (61%)) 100 ml IVPUSH ONETIME ONE Stop: 08/11/19 16:42 Last Admin: 08/11/19 16:44 Dose: 100 ml Ipratropium [place] (Atrovent) 0.5 mg NEB Q4HRRT [facility] Last Admin: 08/11/19 13:29 Dose: 0.5 mg Lidocaine HCl (Xylocaine 1%) Confirm Administered Dose 50 ml .ROUTE .STK-MED ONE Stop: 08/15/19 07:11 Lidocaine HCl (Xylocaine 1%) Confirm Administered Dose 50 ml .ROUTE .STK-MED ONE Stop: 08/15/19 11:28 Magnesium Hydroxide (Milk Of Magnesia) 30 ml PO ONETIME ONE Stop: 08/14/19 07:43 Last Admin: 08/14/19 08:58 Dose: 30 ml Ondansetron HCl (Zofran) 4 mg IVPUSH ONETIME ONE Stop: 08/07/19 16:51 Last Admin: 08/07/19 17:20 Dose: 4 mg Ondansetron HCl (Zofran) 4 mg IVPUSH ONETIME ONE Stop: 08/07/19 19:12 Last Admin: 08/07/19 19:51 Dose: 4 mg Ondansetron HCl (Zofran) 4 mg IV Q6H [facility] Last Admin: 08/08/19 06:03 Dose: Not Given Ondansetron HCl (Zofran) 4 mg IV Q6H [facility] Last Admin: 08/08/19 12:40 Dose: 4 mg Ondansetron HCl (Zofran) 4 mg IVPUSH Q8H PRN PRN Reason: Nausea/Vomiting Last Admin: 08/13/19 15:04 Dose: 4 mg Oseltamivir Phosphate (Tamiflu) 75 mg PO BID [facility] Stop: 08/12/19 09:01 Last Admin: 08/12/19 09:24 Dose: 75 mg Sodium Chloride (Saline Flush) 10 ml FLUSH ONETIME ONE Stop: 08/11/19 16:42 Last Admin: 08/11/19 16:46 Dose: 10 ml <Ruben Dangelo - Last Filed: 08/15/19 15:24> Preanesthetic Assessment - Anesthesia/Transfusion/Family Hx Anesthesia History: Prior Anesthesia Without Reaction Type of Anesthesia Reaction: Other (see below) - Review of Systems General: Appetite Pulmonary: Shortness of Breath Gastrointestinal: Other (currently has NG draining tube) Neurological: No Symptoms - Physical Assessment ASA Class: 3 Mental Status: Alert & Oriented x3 Airway Class: Mallampati = 1 Dentition: Reports: Edentulous, Missing Tooth/Teeth ROM/Head Extension: Full Lungs: Decreased Breath Sounds (lower lobes, coarse sounds LLL) Cardiovascular: Regular Rate, Regular Rhythm, No Murmurs - Imaging/EKG Impressions: CT: emphysematous changes , rt LL parenchymal density, improving pneumonia - Acknowledgements Anesthesia Type Planned: General Anesthesia, Epidural Pt an Appropriate Candidate for the Planned Anesthesia: Yes Alternatives and Risks of Anesthesia Discussed w Pt/Guardian: Yes Pt/Guardian Understands and Agrees with Anesthesia Plan: Yes
--- NOTE | 2019-08-14 20:44 | PCM.PN ---
- General Info Date of Service: 08/14/19 Admission Dx/Problem (Free Text): Admission Diagnosis/Problem Admission Diagnosis/Problem Pneumonia involving left lung Subjective Update: Patient continued to have difficulty with nausea and vomiting. NG tube was placed. Patient continued vomiting even after NG tube was placed. He did have green bilious emesis. He was seen by Dr. Egan and determined that he will need exploratory laparotomy. He was also placed back on 1 L nasal cannula. He has finished with antibiotics. - Review of Systems General: Reports: No Symptoms HEENT: Reports: No Symptoms Pulmonary: Reports: No Symptoms Cardiovascular: Reports: No Symptoms Gastrointestinal: Reports: Nausea, Vomiting Musculoskeletal: Reports: No Symptoms Neurological: Reports: No Symptoms - Patient Data Vitals - Most Recent: Last Vital Signs Temp 98.2 F 08/14/19 15:45 Pulse 87 08/14/19 15:45 Resp 20 08/14/19 15:45 BP 124/82 08/14/19 15:45 Pulse Ox 93 L 08/14/19 16:21 Orthostatic Blood Pressure [ 109/60 Standing] Orthostatic Blood Pressure [ 120/69 Sitting] Orthostatic Blood Pressure [ 120/79 Supine] Weight - Most Recent: 133 lb 3.2 oz I&O - Last 24 Hours: Intake & Output 08/14/19 08/14/19 08/14/19 06:59 14:59 22:59 Intake Total 611 1025 Output Total 1050 1600 Balance -439 -575 Lab Results Last 24 Hours: Laboratory Results - last 24 hr 08/14/19 08/14/19 08/14/19 Range/Units 04:35 04:35 10:20 WBC 9.63 H (4.23-9.07) K/mm3 RBC 4.07 L (4.63-6.08) M/mm3 Hgb 12.9 L (13.7-17.5) gm/dl Hct 39.9 L (40.1-51.0) % MCV 98.0 H (79.0-92.2) fl MCH 31.7 (25.7-32.2) pg MCHC 32.3 (32.2-35.5) g/dl RDW Std Deviation 46.0 H (35.1-43.9) fL Plt Count 341 H (163-337) K/mm3 MPV 9.0 L (9.4-12.3) fl Neut % (Auto) 73.3 H (34.0-67.9) % Lymph % (Auto) 14.5 L (21.8-53.1) % [place] % (Auto) 10.8 (5.3-12.2) % Eos % (Auto) 0.6 L (0.8-7.0) Baso % (Auto) 0.2 (0.1-1.2) % Neut # (Auto) 7.05 H (1.78-5.38) K/mm3 Lymph # (Auto) 1.40 (1.32-3.57) K/mm3 [place] # (Auto) 1.04 H (0.30-0.82) K/mm3 Eos # (Auto) 0.06 (0.04-0.54) K/mm3 Baso # (Auto) 0.02 (0.01-0.08) K/mm3 Sodium 138 (136-145) mEq/L Potassium 4.3 (3.5-5.1) mEq/L Chloride 105 (98-107) mEq/L Carbon Dioxide 26 (21-32) mEq/L Anion Gap 11.3 (5-15) BUN 7 (7-18) mg/dL Creatinine 0.6 L (0.7-1.3) mg/dL Est Cr Clr Drug Dosing 97.90 mL/min Estimated GFR (MDRD) > 60 (>60) mL/min BUN/Creatinine Ratio 11.7 L (14-18) Glucose 119 H (80-115) mg/dL Calcium 7.9 L (8.5-10.1) mg/dL Magnesium 1.9 (1.8-2.4) mg/dl Troponin I (0.00-0.056) ng/mL Albumin 3.1 L (3.4-5.0) g/dl Blood Type Gel Antibody Screen Crossmatch 08/14/19 08/14/19 Range/Units 10:20 14:30 WBC (4.23-9.07) K/mm3 RBC (4.63-6.08) M/mm3 Hgb (13.7-17.5) gm/dl Hct (40.1-51.0) % MCV (79.0-92.2) fl MCH (25.7-32.2) pg MCHC (32.2-35.5) g/dl RDW Std Deviation (35.1-43.9) fL Plt Count (163-337) K/mm3 MPV (9.4-12.3) fl Neut % (Auto) (34.0-67.9) % Lymph % (Auto) (21.8-53.1) % [place] % (Auto) (5.3-12.2) % Eos % (Auto) (0.8-7.0) Baso % (Auto) (0.1-1.2) % Neut # (Auto) (1.78-5.38) K/mm3 Lymph # (Auto) (1.32-3.57) K/mm3 [place] # (Auto) (0.30-0.82) K/mm3 Eos # (Auto) (0.04-0.54) K/mm3 Baso # (Auto) (0.01-0.08) K/mm3 Sodium (136-145) mEq/L Potassium (3.5-5.1) mEq/L Chloride (98-107) mEq/L Carbon Dioxide (21-32) mEq/L Anion Gap (5-15) BUN (7-18) mg/dL Creatinine (0.7-1.3) mg/dL Est Cr Clr Drug Dosing mL/min Estimated GFR (MDRD) (>60) mL/min BUN/Creatinine Ratio (14-18) Glucose (80-115) mg/dL Calcium (8.5-10.1) mg/dL Magnesium (1.8-2.4) mg/dl Troponin I < 0.017 (0.00-0.056) ng/mL Albumin (3.4-5.0) g/dl Blood Type O POSITIVE Gel Antibody Screen Negative Crossmatch See Detail Dmitriy Results Last 24 Hours: Microbiology 08/07/19 18:45 Aerobic Blood Culture - Final Blood - Venous - Lab Draw NO GROWTH AFTER 7 DAYS Anaerobic Blood Culture - Final NO GROWTH AFTER 7 DAYS 08/07/19 18:35 Aerobic Blood Culture - Final Blood - Venous NO GROWTH AFTER 7 DAYS Anaerobic Blood Culture - Final NO GROWTH AFTER 7 DAYS Med Orders - Current: Current Medications Acetaminophen (Tylenol) 650 mg PO Q4H PRN PRN Reason: Pain (Mild 1-3)/fever Last Admin: 08/13/19 09:43 Dose: 650 mg Albuterol/Ipratropium (Duoneb 3.0-0.5 Mg/3 Ml) 3 ml NEB QIDRT [facility] Last Admin: 08/14/19 20:36 Dose: Not Given Benzonatate (Tessalon Perles) 100 mg PO BID [facility] Last Admin: 08/14/19 08:58 Dose: 100 mg Benztropine Mesylate (Cogentin) 1 mg PO BEDTIME [facility] Last Admin: 08/13/19 20:55 Dose: 1 mg Guaifenesin (Mucinex) 600 mg PO BID [facility] Last Admin: 08/14/19 09:00 Dose: 600 mg Dextrose/Sodium Chloride (Dextrose 5%-Normal Saline) 1,000 mls @ 125 mls/hr IV ASDIRECTED [facility] Last Admin: 08/14/19 15:03 Dose: 125 mls/hr Methadone HCl (Methadone) 5 mg PO BID [facility] Last Admin: 08/14/19 08:59 Dose: 5 mg Nicotine (Habitrol) 21 mg TRDERM DAILY [facility] Last Admin: 08/14/19 09:02 Dose: Not Given Ondansetron HCl (Zofran Odt) 4 mg PO Q6H PRN PRN Reason: nausea, able to take PO Last Admin: 08/13/19 09:44 Dose: 4 mg Ondansetron HCl (Zofran) 4 mg IVPUSH Q4H PRN PRN Reason: Nausea/Vomiting Last Admin: 08/13/19 21:01 Dose: 4 mg Risperidone (Risperidal) 2 mg PO BEDTIME [facility] Last Admin: 08/13/19 20:56 Dose: 2 mg Risperidone (Risperidal) 1 mg PO DAILY [facility] Last Admin: 08/14/19 08:59 Dose: 1 mg Sodium Chloride (Saline Flush) 10 ml FLUSH ASDIRECTED PRN PRN Reason: Keep Vein Open Last Admin: 08/11/19 16:44 Dose: 10 ml Trazodone HCl (Trazodone) 50 mg PO BEDTIME [facility] Last Admin: 08/13/19 20:56 Dose: 50 mg Discontinued Medications Azithromycin (Zithromax) 250 mg PO BEDTIME [facility] Last Admin: 08/11/19 21:06 Dose: 250 mg Cefdinir (Omnicef) 300 mg PO BID [facility] Last Admin: 08/14/19 08:58 Dose: 300 mg Ceftriaxone Sodium (Rocephin) Confirm Administered Dose 2 gm IV .STK-MED ONE Stop: 08/07/19 19:45 Last Admin: 08/07/19 19:51 Dose: Not Given Diatrizoate Meglum/Diatrizoate Sod (Gastrografin 37%) 90 ml PO ONETIME ONE Stop: 08/11/19 16:42 Last Admin: 08/11/19 16:43 Dose: 90 ml Guaifenesin (Mucinex) 600 mg PO BID [facility] Last Admin: 08/08/19 12:51 Dose: Not Given Sodium Chloride (Normal Saline) 1,000 mls @ 150 mls/hr IV ASDIRECTED [facility] Last Admin: 08/08/19 06:02 Dose: 150 mls/hr Ceftriaxone Sodium 2 gm/ (Sodium Chloride) 100 mls @ 200 mls/hr IV ONETIME ONE Stop: 08/07/19 20:00 Last Admin: 08/07/19 19:47 Dose: Not Given Magnesium Sulfate 2 gm/ Premix 50 mls @ 25 mls/hr IV ONETIME ONE Stop: 08/07/19 21:42 Last Admin: 08/07/19 20:24 Dose: 25 mls/hr Ceftriaxone Sodium 2 gm/ (Sodium Chloride) 100 mls @ 200 mls/hr IV Q24H STA Stop: 08/07/19 20:15 Last Admin: 08/07/19 19:49 Dose: 200 mls/hr Sodium Chloride (Normal Saline) Confirm Administered Dose 100 mls @ as directed .ROUTE .STK-MED ONE Stop: 08/07/19 19:45 Last Admin: 08/07/19 19:51 Dose: Not Given Azithromycin 500 mg/ Sodium (Chloride) 250 mls @ 250 mls/hr IV Q24H [facility] Last Admin: 08/10/19 22:08 Dose: 250 mls/hr Ceftriaxone Sodium 2 gm/ (Sodium Chloride) 100 mls @ 200 mls/hr IV Q24H [facility] Last Admin: 08/10/19 21:25 Dose: 200 mls/hr Sodium Chloride (Normal Saline) 1,000 mls @ 75 mls/hr IV ASDIRECTED [facility] Sodium Phosphate 30 mmole/ (Sodium Chloride) 260 mls @ 130 mls/hr IV Q2H [facility] Stop: 08/10/19 15:59 Last Admin: 08/10/19 15:12 Dose: 130 mls/hr Magnesium Sulfate 2 gm/ Premix 50 mls @ 25 mls/hr IV ONETIME ONE Stop: 08/11/19 11:08 Last Admin: 08/11/19 09:38 Dose: 25 mls/hr Sodium Chloride (Normal Saline) 1,000 mls @ 75 mls/hr IV ASDIRECTED [facility] Last Admin: 08/12/19 09:24 Dose: 75 mls/hr Sodium Chloride (Normal Saline) Confirm Administered Dose 1,000 mls @ as directed .ROUTE .STK-MED ONE Stop: 08/11/19 17:34 Last Admin: 08/11/19 17:43 Dose: Not Given Dextrose/Sodium Chloride (Dextrose 5%-Normal Saline) 1,000 mls @ 100 mls/hr IV ASDIRECTED [facility] Last Infusion: 08/13/19 12:35 Dose: 50 mls/hr Dextrose/Sodium Chloride (Dextrose 5%-Normal Saline) 1,000 mls @ 50 mls/hr IV ASDIRECTED [facility] Influenza Virus Vaccine (Pharmacy To Dose - Influenza Vaccine) 1 each IM ONETIME ONE Stop: 08/07/19 22:46 Influenza Virus Vaccine (Fluzone High-Dose Syringe) 180 mcg IM .ONCE ONE Stop: 08/08/19 10:01 Iopamidol (Isovue-300 (61%)) 100 ml IVPUSH ONETIME ONE Stop: 08/11/19 16:42 Last Admin: 08/11/19 16:44 Dose: 100 ml Ipratropium [place] (Atrovent) 0.5 mg NEB Q4HRRT [facility] Last Admin: 08/11/19 13:29 Dose: 0.5 mg Magnesium Hydroxide (Milk Of Magnesia) 30 ml PO ONETIME ONE Stop: 08/14/19 07:43 Last Admin: 08/14/19 08:58 Dose: 30 ml Ondansetron HCl (Zofran) 4 mg IVPUSH ONETIME ONE Stop: 08/07/19 16:51 Last Admin: 08/07/19 17:20 Dose: 4 mg Ondansetron HCl (Zofran) 4 mg IVPUSH ONETIME ONE Stop: 08/07/19 19:12 Last Admin: 08/07/19 19:51 Dose: 4 mg Ondansetron HCl (Zofran) 4 mg IV Q6H [facility] Last Admin: 08/08/19 06:03 Dose: Not Given Ondansetron HCl (Zofran) 4 mg IV Q6H [facility] Last Admin: 08/08/19 12:40 Dose: 4 mg Ondansetron HCl (Zofran) 4 mg IVPUSH Q8H PRN PRN Reason: Nausea/Vomiting Last Admin: 08/13/19 15:04 Dose: 4 mg Oseltamivir Phosphate (Tamiflu) 75 mg PO BID [facility] Stop: 08/12/19 09:01 Last Admin: 08/12/19 09:24 Dose: 75 mg Sodium Chloride (Saline Flush) 10 ml FLUSH ONETIME ONE Stop: 08/11/19 16:42 Last Admin: 08/11/19 16:46 Dose: 10 ml - Exam Quality Assessment: Supplemental Oxygen General: Alert, Oriented HEENT: Pupils Equal, Mucous Membr. Moist/[place] Neck: Supple Lungs: Clear to Auscultation, Normal Respiratory Effort Cardiovascular: Regular Rate, Regular Rhythm GI/Abdominal Exam: Soft, Non-Tender, Mass (Right upper quadrant) Extremities: Normal Inspection, Non-Tender, No Pedal Edema Skin: Warm, Dry, Intact Psy/Mental Status: Alert, Normal Affect, Normal Mood EKG INTERPRETATION EKG Date: 08/14/19 Rhythm: NSR Rate (Beats/Min): 90 [place]: Normal P-Wave: Present ST-T: Other (T wave inversion in lead III and flattened in aVF.) FL/PQ Interval: Short FL interval Sepsis Event Note - Evaluation Sepsis Screening Result: No Definite Risk - Focused Exam Vital Signs: Vital Signs Temp Pulse Resp BP Pulse Ox Pulse Ox Pulse Ox 08/14/19 16:21 93 L 08/14/19 15:45 98.2 F 87 20 124/82 93 L 08/14/19 09:43 91 L 08/14/19 09:08 86 L 08/14/19 08:43 98.1 F 100 16 105/65 90 L Date Exam was Performed: 08/14/19 Time Exam was Performed: 20:38 - Problem List Review Problem List Initiated/Reviewed/Updated: Yes - My Orders Last 24 Hours: My Active Orders 08/13/19 20:56 Ondansetron [Zofran] 4 mg IVPUSH Q4H PRN 08/14/19 10:10 CXR [Chest 1V Frontal] [CR] Routine - Plan Plan:: SBO Vomiting Initially presented with intractable nausea and vomiting to ED Has been stable since admission, vomited x1 on 08/11/19 after drinking coffee Tender knob in RUQ noted on physical exam - not gallbladder, calcified mass on CT. Patient reports chronic since [address] scan PLAN -Exploratory laparotomy tomorrow - Antiemetics -NG tube to low intermittent suctioning - NPO with meds - Dr. Egan, general surgery consult - IV fluids as ordered - Monitor blood sugars Pneumonia -clinically resolved Acute hypoxemic respiratory failure Emphysema Chronic cough, acutely worsening in past week Associated with fever - none on floor CXR with infiltrate in posterior lobes [employer] evaluation - regular diet, thin liquids PLAN - Azithromycin, Tamiflu and Rocephin -> completed tamiflu, Rocephin, and azithromycin treatment - Atrovent q4h - Incentive spirometer/Acapella - ABG as needed - Goal SatO2 > 88% Lung nodule, right lung Active Smoker Smokes 2/4ppd > 40y Stable lung nodule noted on CT exam 08/11/19 PLAN - Nicotine patch Schizophrenia Home management with Trazodone, Risperdal and Benztropine PLAN - Let me sleep protocol as much as possible - Continue home medications Chronic pain Methadone maintenance therapy patient Denies any current pain PLAN - Continue methadone Muscle wasting Hypoalbuminemia Macrocytosis without anemia Significant muscle wasting Vitamin B12 level and folic acid level WNL Pre-albumin low PLAN - Dietary consult Hypophosphatemia PLAN - Supplement S/P Hyponatremia/Hypomagnesemia Patient does have a slightly increased perioperative risk of delayed extubation. Also because this is nonelective procedure increases his risk for complications. PROPHYLAXIS DVT- compression stockings GI- not indicated CODE STATUS: FULL CODE DISPOSITION: Patient will remain admitted due to new SBO. LOS >96 HRS due to need for SBO work-up
[2019-08-14] MEDS: traZODone 50 MG Tab PO SCH (21:23)
[2019-08-14] MEDS: Benztropine 1 MG Tab PO SCH (21:23)
--- NOTE | 2019-08-15 05:45 | CR ---
Addendum: Coretta from claim specialist called Dr. Sweeney at 7:06 AM on 08/15/19 notifying of below report. --- Addendum1 above dictated on [08/16/2019 06:13] by [Robb Vasquez, Wesly Nelson] --- --- Addendum1 above signed on [08/16/2019 06:33] by [Robb Vasquez, Wesly Nelson] --- --- Original report below dictated on [08/15/2019 05:39] by [Robb Vasquez, Wesly Nelson] --- --- Original report below signed on [08/15/2019 05:41] by [Robb Vasquez, Wesly Nelson] --- Chest: Portable view of the chest was obtained. Comparison: Previous chest x-ray performed on 08/13/19. Lucency remains along the right lateral chest wall. Difficult to exclude a pneumothorax. This is stable from prior exam. Nodule is noted within both sides of the chest which remain stable. Tip of nasogastric tube remains within the stomach. Bony structures are grossly intact. Heart size and mediastinum are normal. Impression: 1. Lucency along the right lateral chest wall and difficult to exclude a pneumothorax. Since this is stable from prior chest x-ray, recommend noncontrast chest CT to make further evaluate. 2. Nasogastric tube with tip lying within the stomach. 3. Stable nodules. Diagnostic code #5 This report was dictated in MDT I agree with preliminary report from [facility] (additional possible finding and recommendation as noted above), finalized on 08/14/19, 11:36 AM Central Time --- Addendum1 signed ---
[2019-08-15] MEDS: Albuterol/Ipratropium 3.0-0.5 MG/3 ML Neb Soln NEB SCH ×4 (06:59→22:01)
--- NOTE | 2019-08-15 07:35 | CR ---
Chest: Portable view of the chest was obtained. Comparison: Prior chest x-ray of 08/07/19. Stable nodule is noted within the left lung base. Nodule is identified within the right upper lung which is believed to represent a change from nodular pleural thickening within the right chest seen on chest CT of 08/11/19. Lungs otherwise are clear. Heart size is normal. Tortuous thoracic aorta is noted. Emphysematous change is present. Lucency is seen along the right side of the chest most likely due to skin fold but difficult to completely exclude a pneumothorax. Nasogastric tube is seen. Tip lies within the stomach. Impression: 1. Lucency along the right lateral chest most likely due to skin fold but difficult to completely exclude a pneumothorax. 2. Stable nodular densities. 3. Tip of nasogastric tube within the stomach. Diagnostic code #3 This report was dictated in MDT I agree with preliminary report from [facility] (with additional and questionable finding as noted above), finalized on 08/13/19, 7:30 PM Central Time
[2019-08-15] MEDS: Dextrose 5%-0.9% NaCl 1,000 ML IV SCH (07:45)
--- NOTE | 2019-08-15 08:04 | PCM.SN ---
- Free Text/Narrative Note: CXR from yesterday showed concern for possible right pneumothorax. Patient is currently asymptomatic - no chest pain, no SOB. He put out 1700mL from [facility]GT. Will wait for CT chest before a decision is made whether to proceed with surgery. Patient understands.
--- NOTE | 2019-08-15 09:17 | CT ---
CT chest Technique: Noncontrast axial images were obtained to the chest. Comparison: Previous chest x-ray performed one day earlier on 08/14/19. Prior chest CT study of 08/11/19 is also available. Findings: Previous lucency along the lateral right chest does not represent a pneumothorax on current chest CT. Findings seen previously are therefore artifact. Left-sided lung mass is again noted and is stable. Scattered areas of pleural thickening noted within the posterior right chest which is stable. Small right-sided pleural effusion is seen as well as mild associated parenchymal density within the right base. This parenchymal density is slightly improved from prior exam and presumably is due to resolving pneumonia. No additional abnormal parenchymal densities are seen. Diffuse emphysematous change is present. Impression: 1. No findings of pneumothorax on this exam, previous chest x-ray finding is therefore artifact. 2. Improving parenchymal density within the inferior right lung base most likely representing improving pneumonia. 3. Stable emphysematous change and other stable findings as noted above. Diagnostic code #3 This report was dictated in MDT
[2019-08-15] MEDS: Methadone 5 MG Tab PO SCH ×2 (10:48→21:37)
[2019-08-15] MEDS: Nicotine 21 MG/24 Hr Patch TRDERM SCH (10:48)
[2019-08-15] MEDS: risperiDONE 1 MG Tab PO SCH ×2 (10:49→21:36)
[2019-08-15] MEDS: Benzonatate 100 MG Cap PO SCH ×2 (10:49→21:36)
[2019-08-15] MEDS: guaiFENesin 600 MG Tab.ER PO SCH ×2 (10:49→21:37)
[2019-08-15] MEDS ORDERED: Lidocaine 1% 50 ML MDV ONE (11:27)
[2019-08-15] MEDS ORDERED: Rocuronium 50 MG/5 ML Vial ONE ×2 (12:13→16:09)
[2019-08-15] MEDS ORDERED: Propofol 200 MG/20 ML SDV ONE (12:14)
[2019-08-15] MEDS ORDERED: Midazolam 1 MG/ML 2 ML SDV ONE (12:14)
[2019-08-15] MEDS ORDERED: fentaNYL 250 MCG/5 ML SDV ONE (12:15)
[2019-08-15] MEDS ORDERED: Lidocaine 1% 4 ML ONE (14:42)
[2019-08-15] MEDS ORDERED: Succinylcholine/Sod PF 100 MG/5 ML SYRINGE IV ONE (14:47)
[2019-08-15] MEDS: Lidocaine 1% 50 ML MDV ONE ×2 (15:09→15:32)
[2019-08-15] MEDS ORDERED: Lactated Ringers 1,000 ML ONE ×4 (15:17→18:08)
[2019-08-15] MEDS ORDERED: HYDROmorphone 0.5 MG/0.5 ML Syringe ONE ×4 (15:21→20:59)
[2019-08-15] MEDS ORDERED: ceFAZolin 1 GM Vial ONE ×2 (15:22→18:12)
[2019-08-15] MEDS ORDERED: Ketamine 500 mg/10 ML MDV ONE (15:34)
[2019-08-15] MEDS ORDERED: fentaNYL 100 MCG/2 ML SDV IVPUSH PRN (15:37)
[2019-08-15] MEDS ORDERED: HYDROmorphone 0.5 MG/0.5 ML Syringe IVPUSH PRN (15:37)
[2019-08-15] MEDS ORDERED: Ondansetron 4 MG/2 ML SDV IVPUSH PRN (15:37)
[2019-08-15] MEDS ORDERED: ePHEDrine 50 MG/ML SDV IVPUSH PRN (15:37)
[2019-08-15] MEDS ORDERED: Albuterol 0.083% 2.5 MG/3 ML Neb Soln NEB PRN (15:37)
[2019-08-15] MEDS ORDERED: Phenylephrine 1 MG in Sodium Chloride 0.9% 10 ML IV SCH (15:45)
--- NOTE | 2019-08-15 15:53 | PCM.SN ---
- Free Text/Narrative Note: Correction on patient's ASA Status: ASA 3E.
[2019-08-15] MEDS ORDERED: Ondansetron 4 MG/2 ML SDV ONE (16:12)
[2019-08-15] MEDS ORDERED: fentaNYL 100 MCG/2 ML SDV ONE (17:10)
[2019-08-15] MEDS ORDERED: Ketorolac 30 MG/ML SDV ONE (18:39)
--- NOTE | 2019-08-15 20:07 | PCM.POSTAN ---
POST ANESTHESIA ASSESSMENT - MENTAL STATUS Mental Status: Alert - VITAL SIGNS Vital Signs: Last Vital Signs Temp 97.6 08/15/19 Pulse 112 08/15/19 0 Resp 19 08/15/19 BP 138/71 08/15/19 Pulse Ox 99% 08/15/19 Orthostatic Blood Pressure [ 109/60 Standing] Orthostatic Blood Pressure [ 120/69 Sitting] Orthostatic Blood Pressure [ 120/79 Supine] - RESPIRATORY Respiratory Status: Respiratory Rate WNL, Airway Patent, O2 Saturation Stable, Supplemental Oxygen - CARDIOVASCULAR CV Status: Pulse Rate WNL, Blood Pressure Stable - GASTROINTESTINAL GI Status: No Symptoms - POST OP HYDRATION Hydration Status: Adequate & Stable
--- NOTE | 2019-08-15 20:33 | CR ---
Chest: Portable view of the chest was obtained. Comparison: Previous chest CT study performed earlier on the same day (8:44 AM) and chest x-ray performed one day earlier on 08/14/19. Stable mass within the left base. Right jugular line is seen with tip lying within the superior vena cava. No acute parenchymal change is seen. Heart size is normal. Tortuous thoracic aorta is seen. Nasogastric tube is seen which tip lying slightly past the gastroesophageal junction and should be advanced. Bony structures are osteopenic but grossly intact. Impression: 1. Tip of right jugular line within the superior vena cava. No pneumothorax. 2. Tip of nasogastric tube slightly past the gastroesophageal junction which should be advanced. 3. Nothing acute is otherwise seen. Diagnostic code #3 This report was dictated in MDT
[2019-08-15] MEDS ORDERED: HYDROmorphone 0.5 MG/0.5 ML Syringe IVPUSH ONE (20:50)
--- NOTE | 2019-08-15 21:23 | PCM.PN ---
- General Info Date of Service: 08/15/19 Admission Dx/Problem (Free Text): Admission Diagnosis/Problem Admission Diagnosis/Problem Pneumonia involving left lung Subjective Update: Patient was seen in the PACU following laparotomy. Please see Dr. Puente's note for details of the surgery. Following surgery patient had an uneventful extubation and recovery. He is strict n.p.o. He is stable on 2 L nasal cannula. He is resting comfortably. - Review of Systems General: Reports: No Symptoms HEENT: Reports: No Symptoms Pulmonary: Reports: No Symptoms Cardiovascular: Reports: No Symptoms Musculoskeletal: Reports: No Symptoms - Patient Data Vitals - Most Recent: Last Vital Signs Temp 97.3 F 08/15/19 21:00 Pulse 101 H 08/15/19 21:00 Resp 14 08/15/19 21:00 BP 141/74 H 08/15/19 21:00 Pulse Ox 98 08/15/19 21:00 Orthostatic Blood Pressure [ 109/60 Standing] Orthostatic Blood Pressure [ 120/69 Sitting] Orthostatic Blood Pressure [ 120/79 Supine] Weight - Most Recent: 132 lb 14.4 oz I&O - Last 24 Hours: Intake & Output 08/15/19 08/15/19 08/15/19 06:59 14:59 22:59 Intake Total 1520 Output Total 178 441 0947 Balance 1220 -800 -1140 Lab Results Last 24 Hours: Laboratory Results - last 24 hr 08/14/19 08/14/19 08/15/19 Range/Units 10:20 10:20 05:05 WBC 8.28 (4.23-9.07) K/mm3 RBC 4.01 L (4.63-6.08) M/mm3 Hgb 13.0 L (13.7-17.5) gm/dl Hct 39.4 L (40.1-51.0) % MCV 98.3 H (79.0-92.2) fl MCH 32.4 H (25.7-32.2) pg MCHC 33.0 (32.2-35.5) g/dl RDW Std Deviation 46.1 H (35.1-43.9) fL Plt Count 369 H (163-337) K/mm3 MPV 9.0 L (9.4-12.3) fl Neut % (Auto) 70.7 H (34.0-67.9) % Lymph % (Auto) 15.9 L (21.8-53.1) % [place] % (Auto) 11.8 (5.3-12.2) % Eos % (Auto) 1.0 (0.8-7.0) Baso % (Auto) 0.2 (0.1-1.2) % Neut # (Auto) 5.85 H (1.78-5.38) K/mm3 Lymph # (Auto) 1.32 (1.32-3.57) K/mm3 [place] # (Auto) 0.98 H (0.30-0.82) K/mm3 Eos # (Auto) 0.08 (0.04-0.54) K/mm3 Baso # (Auto) 0.02 (0.01-0.08) K/mm3 PT (9.7-12.0) SECONDS INR APTT (22-31) SECONDS Sodium (136-145) mEq/L Potassium (3.5-5.1) mEq/L Chloride (98-107) mEq/L Carbon Dioxide (21-32) mEq/L Anion Gap (5-15) BUN (7-18) mg/dL Creatinine (0.7-1.3) mg/dL Est Cr Clr Drug Dosing mL/min Estimated GFR (MDRD) (>60) mL/min BUN/Creatinine Ratio (14-18) Glucose (80-115) mg/dL Calcium (8.5-10.1) mg/dL Magnesium (1.8-2.4) mg/dl Prealbumin 12.2 L (17.0-34.0) mg/dL Blood Type O POSITIVE Gel Antibody Screen Negative Crossmatch See Detail 08/15/19 08/15/19 Range/Units 05:05 05:05 WBC (4.23-9.07) K/mm3 RBC (4.63-6.08) M/mm3 Hgb (13.7-17.5) gm/dl Hct (40.1-51.0) % MCV (79.0-92.2) fl MCH (25.7-32.2) pg MCHC (32.2-35.5) g/dl RDW Std Deviation (35.1-43.9) fL Plt Count (163-337) K/mm3 MPV (9.4-12.3) fl Neut % (Auto) (34.0-67.9) % Lymph % (Auto) (21.8-53.1) % [place] % (Auto) (5.3-12.2) % Eos % (Auto) (0.8-7.0) Baso % (Auto) (0.1-1.2) % Neut # (Auto) (1.78-5.38) K/mm3 Lymph # (Auto) (1.32-3.57) K/mm3 [place] # (Auto) (0.30-0.82) K/mm3 Eos # (Auto) (0.04-0.54) K/mm3 Baso # (Auto) (0.01-0.08) K/mm3 PT 11.9 (9.7-12.0) SECONDS INR 1.10 APTT 29 (22-31) SECONDS Sodium 142 (136-145) mEq/L Potassium 4.0 (3.5-5.1) mEq/L Chloride 108 H (98-107) mEq/L Carbon Dioxide 28 (21-32) mEq/L Anion Gap 10.0 (5-15) BUN 7 (7-18) mg/dL Creatinine 0.8 (0.7-1.3) mg/dL Est Cr Clr Drug Dosing 73.26 mL/min Estimated GFR (MDRD) > 60 (>60) mL/min BUN/Creatinine Ratio 8.8 L (14-18) Glucose 129 H (80-115) mg/dL Calcium 8.3 L (8.5-10.1) mg/dL Magnesium 2.1 (1.8-2.4) mg/dl Prealbumin (17.0-34.0) mg/dL Blood Type Gel Antibody Screen Crossmatch Dmitriy Results Last 24 Hours: Microbiology 08/07/19 18:45 Aerobic Blood Culture - Final Blood - Venous - Lab Draw NO GROWTH AFTER 7 DAYS Anaerobic Blood Culture - Final NO GROWTH AFTER 7 DAYS 08/07/19 18:35 Aerobic Blood Culture - Final Blood - Venous NO GROWTH AFTER 7 DAYS Anaerobic Blood Culture - Final NO GROWTH AFTER 7 DAYS Med Orders - Current: Current Medications Acetaminophen (Tylenol) 650 mg PO Q4H PRN PRN Reason: Pain (Mild 1-3)/fever Last Admin: 08/13/19 09:43 Dose: 650 mg Albuterol/Ipratropium (Duoneb 3.0-0.5 Mg/3 Ml) 3 ml NEB QIDRT [facility] Last Admin: 08/15/19 16:49 Dose: Not Given Benzonatate (Tessalon Perles) 100 mg PO BID [facility] Last Admin: 08/15/19 10:49 Dose: Not Given Benztropine Mesylate (Cogentin) 1 mg PO BEDTIME [facility] Last Admin: 08/14/19 21:23 Dose: 1 mg Guaifenesin (Mucinex) 600 mg PO BID [facility] Last Admin: 08/15/19 10:49 Dose: Not Given Haloperidol Lactate (Haldol) 5 mg IVPUSH BEDTIME [facility] Haloperidol Lactate (Haldol) 5 mg IV ONETIME PRN PRN Reason: Other Stop: 08/16/19 08:00 Dextrose/Sodium Chloride (Dextrose 5%-Normal Saline) 1,000 mls @ 125 mls/hr IV ASDIRECTED [facility] Last Admin: 08/15/19 07:45 Dose: 125 mls/hr Ketorolac Tromethamine (Toradol) 15 mg IVPUSH Q6H PRN PRN Reason: Pain Stop: 08/18/19 00:31 Lorazepam (Ativan) 1 mg IVPUSH Q2H PRN PRN Reason: Anxiety Methadone HCl (Methadone) 5 mg PO BID [facility] Last Admin: 08/15/19 10:48 Dose: Not Given Nicotine (Habitrol) 21 mg TRDERM DAILY [facility] Last Admin: 08/15/19 10:48 Dose: Not Given Ondansetron HCl (Zofran Odt) 4 mg PO Q6H PRN PRN Reason: nausea, able to take PO Last Admin: 08/13/19 09:44 Dose: 4 mg Ondansetron HCl (Zofran) 4 mg IVPUSH Q4H PRN PRN Reason: Nausea/Vomiting Last Admin: 08/13/19 21:01 Dose: 4 mg Risperidone (Risperidal) 2 mg PO BEDTIME [facility] Last Admin: 08/14/19 21:24 Dose: 2 mg Risperidone (Risperidal) 1 mg PO DAILY [facility] Last Admin: 08/15/19 10:49 Dose: Not Given Sodium Chloride (Saline Flush) 10 ml FLUSH ASDIRECTED PRN PRN Reason: Keep Vein Open Last Admin: 08/11/19 16:44 Dose: 10 ml Trazodone HCl (Trazodone) 50 mg PO BEDTIME [facility] Last Admin: 08/14/19 21:23 Dose: 50 mg Discontinued Medications Albuterol (Proventil Neb Soln) 2.5 mg NEB ONETIME PRN PRN Reason: bronchodilation Stop: 08/15/19 18:00 Azithromycin (Zithromax) 250 mg PO BEDTIME [facility] Last Admin: 08/11/19 21:06 Dose: 250 mg Cefazolin Sodium (Ancef) Confirm Administered Dose 2 gm .ROUTE .STK-MED ONE Stop: 08/15/19 15:23 Cefazolin Sodium (Ancef) Confirm Administered Dose 2 gm .ROUTE .STK-MED ONE Stop: 08/15/19 18:13 Cefdinir (Omnicef) 300 mg PO BID [facility] Last Admin: 08/14/19 08:58 Dose: 300 mg Ceftriaxone Sodium (Rocephin) Confirm Administered Dose 2 gm IV .STK-MED ONE Stop: 08/07/19 19:45 Last Admin: 08/07/19 19:51 Dose: Not Given Diatrizoate Meglum/Diatrizoate Sod (Gastrografin 37%) 90 ml PO ONETIME ONE Stop: 08/11/19 16:42 Last Admin: 08/11/19 16:43 Dose: 90 ml Ephedrine Sulfate (Ephedrine Sulfate) 5 mg IVPUSH ASDIRECTED PRN PRN Reason: Hypotension Stop: 08/15/19 18:00 Fentanyl (Sublimaze) Confirm Administered Dose 250 mcg .ROUTE .STK-MED ONE Stop: 08/15/19 12:16 Fentanyl (Sublimaze) 50 mcg IVPUSH Q5M PRN PRN Reason: Pain Stop: 08/15/19 18:00 Fentanyl (Sublimaze) Confirm Administered Dose 100 mcg .ROUTE .STK-MED ONE Stop: 08/15/19 17:11 Glycopyrrolate () Confirm Administered Dose 1 mg .ROUTE .STK-MED ONE Stop: 08/15/19 16:12 Guaifenesin (Mucinex) 600 mg PO BID [facility] Last Admin: 08/08/19 12:51 Dose: Not Given Hydromorphone HCl (Dilaudid) Confirm Administered Dose 0.5 mg .ROUTE .STK-MED ONE Stop: 08/15/19 15:22 Hydromorphone HCl (Dilaudid) 0.5 mg IVPUSH Q15M PRN PRN Reason: Pain (severe 7-10) Stop: 08/15/19 18:00 Hydromorphone HCl (Dilaudid) Confirm Administered Dose 0.5 mg .ROUTE .STK-MED ONE Stop: 08/15/19 16:18 Hydromorphone HCl (Dilaudid) Confirm Administered Dose 0.5 mg .ROUTE .STK-MED ONE Stop: 08/15/19 18:43 Hydromorphone HCl (Dilaudid) 0.5 mg IVPUSH ONETIME ONE Stop: 08/15/19 20:51 Last Admin: 08/15/19 20:59 Dose: 0.5 mg Hydromorphone HCl (Dilaudid) Confirm Administered Dose 0.5 mg .ROUTE .STK-MED ONE Stop: 08/15/19 21:00 Sodium Chloride (Normal Saline) 1,000 mls @ 150 mls/hr IV ASDIRECTED [facility] Last Admin: 08/08/19 06:02 Dose: 150 mls/hr Ceftriaxone Sodium 2 gm/ (Sodium Chloride) 100 mls @ 200 mls/hr IV ONETIME ONE Stop: 08/07/19 20:00 Last Admin: 08/07/19 19:47 Dose: Not Given Magnesium Sulfate 2 gm/ Premix 50 mls @ 25 mls/hr IV ONETIME ONE Stop: 08/07/19 21:42 Last Admin: 08/07/19 20:24 Dose: 25 mls/hr Ceftriaxone Sodium 2 gm/ (Sodium Chloride) 100 mls @ 200 mls/hr IV Q24H STA Stop: 08/07/19 20:15 Last Admin: 08/07/19 19:49 Dose: 200 mls/hr Sodium Chloride (Normal Saline) Confirm Administered Dose 100 mls @ as directed .ROUTE .STK-MED ONE Stop: 08/07/19 19:45 Last Admin: 08/07/19 19:51 Dose: Not Given Azithromycin 500 mg/ Sodium (Chloride) 250 mls @ 250 mls/hr IV Q24H [facility] Last Admin: 08/10/19 22:08 Dose: 250 mls/hr Ceftriaxone Sodium 2 gm/ (Sodium Chloride) 100 mls @ 200 mls/hr IV Q24H [facility] Last Admin: 08/10/19 21:25 Dose: 200 mls/hr Sodium Chloride (Normal Saline) 1,000 mls @ 75 mls/hr IV ASDIRECTED [facility] Sodium Phosphate 30 mmole/ (Sodium Chloride) 260 mls @ 130 mls/hr IV Q2H [facility] Stop: 08/10/19 15:59 Last Admin: 08/10/19 15:12 Dose: 130 mls/hr Magnesium Sulfate 2 gm/ Premix 50 mls @ 25 mls/hr IV ONETIME ONE Stop: 08/11/19 11:08 Last Admin: 08/11/19 09:38 Dose: 25 mls/hr Sodium Chloride (Normal Saline) 1,000 mls @ 75 mls/hr IV ASDIRECTED [facility] Last Admin: 08/12/19 09:24 Dose: 75 mls/hr Sodium Chloride (Normal Saline) Confirm Administered Dose 1,000 mls @ as directed .ROUTE .STK-MED ONE Stop: 08/11/19 17:34 Last Admin: 08/11/19 17:43 Dose: Not Given Dextrose/Sodium Chloride (Dextrose 5%-Normal Saline) 1,000 mls @ 100 mls/hr IV ASDIRECTED [facility] Last Infusion: 08/13/19 12:35 Dose: 50 mls/hr Dextrose/Sodium Chloride (Dextrose 5%-Normal Saline) 1,000 mls @ 50 mls/hr IV ASDIRECTED [facility] Lidocaine HCl (Xylocaine-Mpf 1%) Confirm Administered Dose 4 mls @ as directed .ROUTE .STK-MED ONE Stop: 08/15/19 14:43 Lactated Ringer's (Ringers, Lactated) Confirm Administered Dose 1,000 mls @ as directed .ROUTE .STK-MED ONE Stop: 08/15/19 15:18 Lactated Ringer's (Ringers, Lactated) Confirm Administered Dose 1,000 mls @ as directed .ROUTE .STK-MED ONE Stop: 08/15/19 15:18 Phenylephrine HCl 1 mg/ Sodium (Chloride) 10.1 mls @ 1 mls/sec IV TITRATE [facility]; Protocol Stop: 08/15/19 18:00 Lactated Ringer's (Ringers, Lactated) Confirm Administered Dose 1,000 mls @ as directed .ROUTE .STK-MED ONE Stop: 08/15/19 15:57 Lactated Ringer's (Ringers, Lactated) Confirm Administered Dose 1,000 mls @ as directed .ROUTE .STK-MED ONE Stop: 08/15/19 18:09 Influenza Virus Vaccine (Pharmacy To Dose - Influenza Vaccine) 1 each IM ONETIME ONE Stop: 08/07/19 22:46 Influenza Virus Vaccine (Fluzone High-Dose Syringe) 180 mcg IM .ONCE ONE Stop: 08/08/19 10:01 Iopamidol (Isovue-300 (61%)) 100 ml IVPUSH ONETIME ONE Stop: 08/11/19 16:42 Last Admin: 08/11/19 16:44 Dose: 100 ml Ipratropium [place] (Atrovent) 0.5 mg NEB Q4HRRT [facility] Last Admin: 08/11/19 13:29 Dose: 0.5 mg Ketamine HCl (Ketalar) Confirm Administered Dose 500 mg .ROUTE .STK-MED ONE Stop: 08/15/19 15:35 Ketorolac Tromethamine (Toradol) Confirm Administered Dose 30 mg .ROUTE .STK- MED ONE Stop: 08/15/19 18:40 Lidocaine HCl (Xylocaine 1%) Confirm Administered Dose 50 ml .ROUTE .STK-MED ONE Stop: 08/15/19 07:11 Last Admin: 08/15/19 15:09 Dose: 4.5 ml Lidocaine HCl (Xylocaine 1%) Confirm Administered Dose 50 ml .ROUTE .STK-MED ONE Stop: 08/15/19 11:28 Magnesium Hydroxide (Milk Of Magnesia) 30 ml PO ONETIME ONE Stop: 08/14/19 07:43 Last Admin: 08/14/19 08:58 Dose: 30 ml Midazolam HCl (Versed 1 Mg/Ml) Confirm Administered Dose 2 mg .ROUTE .STK-MED ONE Stop: 08/15/19 12:15 Miscellaneous Medication (Phenylephrine 1 Mg/10 Ml-Ns) Confirm Administered Dose 1 mg IV .STK-MED ONE Stop: 08/15/19 15:05 Miscellaneous Medication (Phenylephrine 1 Mg/10 Ml-Ns) Confirm Administered Dose 1 mg IV .STK-MED ONE Stop: 08/15/19 16:18 Miscellaneous Medication (Phenylephrine 1 Mg/10 Ml-Ns) Confirm Administered Dose 1 mg IV .STK-MED ONE Stop: 08/15/19 17:47 Miscellaneous Medication (Phenylephrine 1 Mg/10 Ml-Ns) Confirm Administered Dose 1 mg IV .STK-MED ONE Stop: 08/15/19 18:34 Neostigmine Methylsulfate (Neostigmine Methylsulfate) Confirm Administered Dose 5 mg .ROUTE .STK-MED ONE Stop: 08/15/19 16:12 Ondansetron HCl (Zofran) 4 mg IVPUSH ONETIME ONE Stop: 08/07/19 16:51 Last Admin: 08/07/19 17:20 Dose: 4 mg Ondansetron HCl (Zofran) 4 mg IVPUSH ONETIME ONE Stop: 08/07/19 19:12 Last Admin: 08/07/19 19:51 Dose: 4 mg Ondansetron HCl (Zofran) 4 mg IV Q6H [facility] Last Admin: 08/08/19 06:03 Dose: Not Given Ondansetron HCl (Zofran) 4 mg IV Q6H [facility] Last Admin: 08/08/19 12:40 Dose: 4 mg Ondansetron HCl (Zofran) 4 mg IVPUSH Q8H PRN PRN Reason: Nausea/Vomiting Last Admin: 08/13/19 15:04 Dose: 4 mg Ondansetron HCl (Zofran) 4 mg IVPUSH ONETIME PRN PRN Reason: Nausea/Vomiting Stop: 08/15/19 18:00 Ondansetron HCl (Zofran) Confirm Administered Dose 4 mg .ROUTE .STK-MED ONE Stop: 08/15/19 16:13 Oseltamivir Phosphate (Tamiflu) 75 mg PO BID [facility] Stop: 08/12/19 09:01 Last Admin: 08/12/19 09:24 Dose: 75 mg Propofol (Diprivan 20 Ml) Confirm Administered Dose 200 mg .ROUTE .STK-MED ONE Stop: 08/15/19 12:15 Rocuronium [place] (Zemuron) Confirm Administered Dose 50 mg .ROUTE .STK-MED ONE Stop: 08/15/19 12:14 Rocuronium [place] (Zemuron) Confirm Administered Dose 50 mg .ROUTE .STK-MED ONE Stop: 08/15/19 16:10 Sodium Chloride (Saline Flush) 10 ml FLUSH ONETIME ONE Stop: 08/11/19 16:42 Last Admin: 08/11/19 16:46 Dose: 10 ml - Exam Quality Assessment: Supplemental Oxygen General: Sedated HEENT: Pupils Equal, Mucous Membr. Moist/[place] Neck: Supple Lungs: Normal Respiratory Effort, Rales (Mild bibasilar) Cardiovascular: Regular Rate, Regular Rhythm GI/Abdominal Exam: Soft. No: Normal Bowel Sounds (Diminished) Extremities: Normal Inspection, Normal Range of Motion, Non-Tender, No Pedal Edema, Normal Capillary Refill Sepsis Event Note - Evaluation Sepsis Screening Result: No Definite Risk - Focused Exam Vital Signs: Vital Signs Temp Pulse Resp BP Pulse Ox Pulse Ox Pulse Ox 08/15/19 21:00 97.3 F 101 H 14 141/74 H 98 08/15/19 20:45 97.5 F 104 H 14 125/76 95 08/15/19 20:38 97.7 F 107 H 13 134/84 96 08/15/19 20:15 97.5 F 107 H 15 133/76 95 08/15/19 20:00 97.7 F 111 H 14 138/69 96 08/15/19 19:57 97.5 F 111 H 19 138/71 99 99 08/15/19 09:17 94 L Date Exam was Performed: 08/15/19 Time Exam was Performed: 21:16 - Problem List Review Problem List Initiated/Reviewed/Updated: Yes - My Orders Last 24 Hours: My Active Orders 08/15/19 21:02 LORazepam [Ativan] 1 mg IVPUSH Q2H PRN 08/15/19 22:00 Haloperidol Lactate [Haldol] 5 mg IVPUSH BEDTIME 08/16/19 00:00 Haloperidol Lactate [Haldol] 5 mg IV ONETIME PRN - Plan Plan:: SBO -post exploratory open laparotomy Vomiting Initially presented with intractable nausea and vomiting to ED Has been stable since admission, vomited x1 on 08/11/19 after drinking coffee Tender knob in RUQ noted on physical exam - not gallbladder, calcified mass on CT. Patient reports chronic since [address] scan Multiple adhesions and right upper quadrant mass excised. PLAN -NG tube to low intermittent suctioning -Strict NPO -Plan TPN in the morning - IV fluids as ordered for tonight - Monitor blood sugars Pneumonia -clinically resolved Acute hypoxemic respiratory failure Emphysema Chronic cough, acutely worsening in past week Associated with fever - none on floor CXR with infiltrate in posterior lobes TIME BROKER evaluation - regular diet, thin liquids PLAN -Completed azithromycin, Tamiflu and Rocephin - Atrovent q4h - Incentive spirometer/Acapella - ABG as needed - Goal SatO2 > 88% Lung nodule, right lung Active Smoker Smokes 2/4ppd > 40y Stable lung nodule noted on CT exam 08/11/19 PLAN - Nicotine patch Schizophrenia Home management with Trazodone, Risperdal and Benztropine PLAN -Patient is strict n.p.o. and on oral Resporal. Will transition to Haldol and Ativan. - Let me sleep protocol as much as possible - Continue home medications Chronic pain Methadone maintenance therapy patient Denies any current pain PLAN -Pain management per Dr. Egan Muscle wasting Hypoalbuminemia Macrocytosis without anemia Significant muscle wasting Vitamin B12 level and folic acid level WNL Pre-albumin low PLAN - Dietary consult Hypophosphatemia PLAN - Supplement S/P Hyponatremia/Hypomagnesemia PROPHYLAXIS DVT- compression stockings GI- not indicated CODE STATUS: FULL CODE DISPOSITION: Patient will remain admitted due to new SBO. LOS >96 HRS due to need for SBO work-up
[2019-08-15] MEDS: Benztropine 1 MG Tab PO SCH (21:37)
[2019-08-15] MEDS: traZODone 50 MG Tab PO SCH (21:50)
[2019-08-15] MEDS: HYDROmorphone 1 MG/ML Syringe IVPUSH PRN (21:57)
[2019-08-15] MEDS ORDERED: Haloperidol Lactate 5 MG/ML SDV IVPUSH SCH (22:00)
[2019-08-16] MEDS ORDERED: Haloperidol Lactate 5 MG/ML SDV IV PRN
[2019-08-16] MEDS: HYDROmorphone 1 MG/ML Syringe IVPUSH PRN ×4 (00:57→18:55)
[2019-08-16] MEDS: LORazepam 2 MG/ML SDV IVPUSH PRN ×3 (00:58→22:14)
[2019-08-16] MEDS: Dextrose 5%-0.9% NaCl 1,000 ML IV SCH (01:04)
[2019-08-16] MEDS: Albuterol/Ipratropium 3.0-0.5 MG/3 ML Neb Soln NEB SCH ×4 (05:18→21:21)
[2019-08-16] MEDS ORDERED: Magnesium Sulfate/Water 2 GM in Premix Bag 1 BAG IV ONE (08:11)
[2019-08-16] MEDS ORDERED: Magnesium Sulfate/Water 4 GM in Premix Bag 1 BAG IV ONE (08:29)
--- NOTE | 2019-08-16 08:40 | PCM48HPAN ---
Post Anesthesia Note - EVALUATION WITHIN 48HRS OF ANESTHETIC Vital Signs in Normal Range: Yes Patient Participated in Evaluation: Yes Respiratory Function Stable: Yes Airway Patent: Yes Cardiovascular Function Stable: Yes Hydration Status Stable: Yes Pain Control Satisfactory: Yes Nausea and Vomiting Control Satisfactory: Yes Mental Status Recovered: Yes Vital Signs: Last Vital Signs Temp 36.9 C 08/16/19 07:59 Pulse 63 08/16/19 07:59 Resp 20 08/16/19 07:59 BP 127/66 08/16/19 07:59 Pulse Ox 93 L 08/16/19 07:59 Orthostatic Blood Pressure [ 109/60 Standing] Orthostatic Blood Pressure [ 120/69 Sitting] Orthostatic Blood Pressure [ 120/79 Supine]
--- NOTE | 2019-08-16 08:44 | OR ---
DATE OF OPERATION: 08/15/2019 SURGEON: Elie Egan MD PREOPERATIVE DIAGNOSIS: Small bowel obstruction. POSTOPERATIVE DIAGNOSIS: Small bowel obstruction. OPERATION PERFORMED: 1. Diagnostic laparoscopy. 2. Exploratory laparotomy. 3. Lysis of adhesions x180 minutes. 4. Excision of right upper quadrant cystic mass abutting the liver and gallbladder. 5. Ultrasound guided central line placement through the right Internal Jugular vein. ANESTHESIA: General endotracheal anesthesia. ESTIMATED BLOOD LOSS: 100 mL. COMPLICATIONS: None. NEED FOR ASSISTANCE: Skilled assistance was needed in this case. The contract assistant helps with retracting various parts of the abdomen. While performing the procedure, the contract assistant also assisted with closure and dressing placement at the end of the case. INDICATIONS AND CONSENT: The patient is a 68-year-old male who presented to the hospital a week ago with nausea, vomiting, as well as recent cough. The patient has known history of COPD and has been chronically nauseated and vomiting, unable to tolerate p.o. for a period of time-likely months. The patient was admitted and was found to have pneumonia which was treated and patient improved. On the day of discharge, the patient vomited. After vomiting, CT scan of the abdomen was performed and there was concern for small bowel obstruction. Although this was partial obstruction evidenced by slow transit of contrast into the colon, the patient did not tolerate any fluids including liquids for the following 4 days. Due to p.o. intolerance, I discussed with the patient at length that we may need to explore his abdomen and see what is causing his obstruction. The patient did agree that he has been having trouble eating for a long time and would like something done. I discussed with the patient that because of his chronic malnutrition and protein deficiency, he may need a central line placement for TPN at the time of surgery and I discussed with him that he is at risk for lung complication including delayed extubation, bleeding, infection, need for other procedures, bowel resection and possible ostomy. For central line, discussed with him that the risks are pneumothorax and bleeding. The patient agreed to proceed with all procedures and informed consent was obtained. I also spoke to the patient's sister who was also made aware of the planned procedure. DESCRIPTION OF PROCEDURE: The patient was taken to the operating room, placed in supine position. Following induction of general endotracheal anesthesia, preop antibiotics consisting of Ancef were provided. Obrien catheter was placed. The patient was appropriately padded prior to the start of the procedure. Then, the abdomen was clipped of any hair and prepped and draped in the usual sterile fashion. Time- out was performed prior to the start of the procedure. We began the procedure by making a small infraumbilical incision and abdomen was accessed with a Veress needle and then a 5 mm trocar was placed under direct visualization with a scope. Upon placement of the trocar, we were not able to really clearly visualize the abdomen. There were thin adhesions everywhere. Attempt to maneuver the scope around did not reveal any clear areas. Therefore, we decided to proceed with an open procedure. Incision was made in the upper abdomen and little bit past the umbilicus. Fascia was incised and the abdomen was entered without any injuries. There was dense adhesions throughout the bowel. The entire small bowel was matted together with thin adhesions and to the abdominal wall. We began lysis of adhesions releasing the abdominal contents from the abdominal wall first, then I proceeded with releasing intra-bowel adhesions. Due to the density and extent of the adhesions, this procedure of lysis of adhesions took about little over 3 hours to complete. The adhesiolysis was carried down very carefully using blunt dissection as well as sharp dissection with Metzenbaum scissors and occasional bovie taking care not to injure any part of the bowel. We were able to release the small bowel from the ligament of Treitz all the way to the cecum. Upon running this bowel, we noted that there were several bowel adhesions to the right upper quadrant mass. This mass was firm but fluctuant. It was tightly adherent to the abdominal wall, to the part of the liver, to the gallbladder as well as to several loops of bowel that were stuck tightly to the mass. This area was likely the area of obstruction. Jejunum was clearly dilated and distal ileum was clearly decompressed. The colon was inspected and appeared normal. Once the lysis of adhesions was done, we isolated this mass and carefully dissected away the bowels from the right upper quadrant mass. Inherent in this procedure, there were four superficial serosal tears upon peeling the bowel from this mass. We proceeded with resection of this mass. It was removed from the abdominal wall meticulously without injuring the posterior fascia. It was also peeled away from the gallbladder as well as part of the liver and removed it intact. There was no bile leak. There was no bleeding and the gallbladder was left intact. There was a small serosal tear on the gallbladder that was repaired with silk stitches. There was no bile leak. Once this was done, the mass was passed off for pathologic analysis. The gallbladder appeared to be normal and there was no other clear abnormalities. At this point, we began to inspect the entirety of the bowel. We found 4 areas of superficial serosal tear as mentioned above. These were small serosal tears and therefore the decision was made to proceed with primary repair. Lembert stitches with 3-0 silk were placed in each of these serosal tears in a transverse fashion to avoid narrowing the bowel. Once this was done, the bowel was inspected again. Any remaining adhesions were lysed at this time, and we ran the bowel back from the ligament of Treitz to the cecum and backwards. Again, the colon was inspected and it appeared to be intact. Once this was done, we irrigated the abdomen with 3 L of warm saline. Then, the bowels were returned back into the abdomen. At this time, we decided to place 19 Fr drains ; 1 drain was placed in the right upper quadrant at the area of resection of the right upper quadrant mass and infrahepatic fossa, and another drain was placed into the pelvis. The right upper quadrant drain was taken out in the right abdomen and the pelvic drain was taken out in the left abdomen. Drains were secured with 3-0 Prolenes. At this time, we proceeded with fascial closure. The fascia was closed with #1 PDS stitches looped and the skin was reapproximated with paul and then sterile dressing was placed over the top. This marked the end of this part of the procedure. All instrument, sharps, and sponges were counted and found to be correct x2. Then, we turned over our instruments and started preparing for a central line placement. The patient was reprepped in the neck and draped, and then another time-out was performed and checklist was performed for central line. A 7-Sami 20 cm triple-lumen catheter was brought into the field. Sterile technique was followed and the patient was draped and the kit was prepared accordingly. Then, using Seldinger technique, the right IJ was cannulated under direct visualization with the ultrasound. The guidewire was placed and was visualized to clearly be going down the internal jugular by ultrasound. Then, the tract was dilated with the dilator and the triple-lumen catheter was placed. There was minor oozing at the neck and sterile dressing was placed. The oozing of the neck was controlled with gauze and slight pressure dressing at the area. Both aspiration and injection were smooth and this marked the end of the procedure. The patient was taken to the PACU where the x-ray revealed no pneumothorax and correct placement of the tip of the catheter into the distal superior vena cava. At the end of the CVC placement. Instruments were disposed off accordingly, and the patient was awoken from general anesthesia, extubated, and taken to the PACU in stable condition. The patient will be taken back to the Med/Surg floor and observed overnight. He is to remain n.p.o. with NG tube. Tomorrow, we will start TPN on this patient due to severe protein-deficient malnutrition. MMODAL /[id number] MIKIE
[2019-08-16] MEDS ORDERED: Haloperidol Lactate 5 MG/ML SDV IVPUSH SCH (08:45)
[2019-08-16] MEDS ORDERED: Dextrose 5%-0.9% NaCl 1,000 ML IV SCH ×2 (09:00→12:00)
[2019-08-16] MEDS ORDERED: Haloperidol Lactate 5 MG/ML SDV IVPUSH ONE (09:00)
[2019-08-16] MEDS: Nicotine 21 MG/24 Hr Patch TRDERM SCH (09:57)
[2019-08-16] MEDS: Ketorolac 15 MG/ML SDV IVPUSH PRN ×2 (10:26→21:57)
--- NOTE | 2019-08-16 10:33 | PCM.SURGPN ---
- General Info Date of Service: 08/16/19 POD#: 1 Post-Op Diagnosis: small bowel obstruction Functional Status: Reports: Pain Controlled, Incentive Spirometry Pain Score: 6 - Review of Systems General: Reports: No Symptoms HEENT: Reports: No Symptoms Pulmonary: Reports: No Symptoms Cardiovascular: Reports: No Symptoms Gastrointestinal: Reports: Abdominal Pain Genitourinary: Reports: No Symptoms Musculoskeletal: Reports: No Symptoms Skin: Reports: No Symptoms - Patient Data Vitals - Most Recent: Last Vital Signs Temp 98.4 F 08/16/19 07:59 Pulse 63 08/16/19 07:59 Resp 20 08/16/19 07:59 BP 127/66 08/16/19 07:59 Pulse Ox 100 08/16/19 09:02 Orthostatic Blood Pressure [ 109/60 Standing] Orthostatic Blood Pressure [ 120/69 Sitting] Orthostatic Blood Pressure [ 120/79 Supine] Weight - Most Recent: 61.598 kg I&O - Last 24 Hours: Intake & Output 08/15/19 08/16/19 08/16/19 22:59 06:59 14:59 Intake Total 700 Output Total 1140 1250 Balance -1140 -550 Lab Results Last 24 Hrs: Laboratory Results - last 24 hr 08/14/19 08/14/19 08/16/19 Range/Units 10:20 10:20 05:05 WBC 19.85 H (4.23-9.07) K/mm3 RBC 3.66 L (4.63-6.08) M/mm3 Hgb 11.7 L (13.7-17.5) gm/dl Hct 36.7 L (40.1-51.0) % MCV 100.3 H (79.0-92.2) fl MCH 32.0 (25.7-32.2) pg MCHC 31.9 L (32.2-35.5) g/dl RDW Std Deviation 46.1 H (35.1-43.9) fL Plt Count 337 (163-337) K/mm3 MPV 8.7 L (9.4-12.3) fl Neut % (Auto) 91.7 H (34.0-67.9) % Lymph % (Auto) 2.8 L (21.8-53.1) % Dillon % (Auto) 5.1 L (5.3-12.2) % Eos % (Auto) 0.1 L (0.8-7.0) Baso % (Auto) 0.1 (0.1-1.2) % Neut # (Auto) 18.21 H (1.78-5.38) K/mm3 Lymph # (Auto) 0.56 L (1.32-3.57) K/mm3 Dillon # (Auto) 1.01 H (0.30-0.82) K/mm3 Eos # (Auto) 0.01 L (0.04-0.54) K/mm3 Baso # (Auto) 0.02 (0.01-0.08) K/mm3 Manual Slide Review Abnormal smear Sodium (136-145) mEq/L Potassium (3.5-5.1) mEq/L Chloride (98-107) mEq/L Carbon Dioxide (21-32) mEq/L Anion Gap (5-15) BUN (7-18) mg/dL Creatinine (0.7-1.3) mg/dL Est Cr Clr Drug Dosing mL/min Estimated GFR (MDRD) (>60) mL/min BUN/Creatinine Ratio (14-18) Glucose (80-115) mg/dL Calcium (8.5-10.1) mg/dL Phosphorus (2.6-4.7) mg/dL Magnesium (1.8-2.4) mg/dl Total Bilirubin (0.2-1.0) mg/dL AST (15-37) U/L ALT (16-63) U/L Alkaline Phosphatase (46-116) U/L Total Protein (6.4-8.2) g/dl Albumin (3.4-5.0) g/dl Globulin gm/dL Albumin/Globulin Ratio (1-2) Prealbumin 12.2 L (17.0-34.0) mg/dL Blood Type O POSITIVE Gel Antibody Screen Negative Crossmatch See Detail 08/16/19 Range/Units 05:05 WBC (4.23-9.07) K/mm3 RBC (4.63-6.08) M/mm3 Hgb (13.7-17.5) gm/dl Hct (40.1-51.0) % MCV (79.0-92.2) fl MCH (25.7-32.2) pg MCHC (32.2-35.5) g/dl RDW Std Deviation (35.1-43.9) fL Plt Count (163-337) K/mm3 MPV (9.4-12.3) fl Neut % (Auto) (34.0-67.9) % Lymph % (Auto) (21.8-53.1) % Dillon % (Auto) (5.3-12.2) % Eos % (Auto) (0.8-7.0) Baso % (Auto) (0.1-1.2) % Neut # (Auto) (1.78-5.38) K/mm3 Lymph # (Auto) (1.32-3.57) K/mm3 Dillon # (Auto) (0.30-0.82) K/mm3 Eos # (Auto) (0.04-0.54) K/mm3 Baso # (Auto) (0.01-0.08) K/mm3 Manual Slide Review Sodium 140 (136-145) mEq/L Potassium 4.1 (3.5-5.1) mEq/L Chloride 108 H (98-107) mEq/L Carbon Dioxide 25 (21-32) mEq/L Anion Gap 11.1 (5-15) BUN 10 (7-18) mg/dL Creatinine 0.7 (0.7-1.3) mg/dL Est Cr Clr Drug Dosing 85.55 mL/min Estimated GFR (MDRD) > 60 (>60) mL/min BUN/Creatinine Ratio 14.3 (14-18) Glucose 164 H (80-115) mg/dL Calcium 7.0 L (8.5-10.1) mg/dL Phosphorus 2.9 (2.6-4.7) mg/dL Magnesium 1.5 L (1.8-2.4) mg/dl Total Bilirubin 0.6 (0.2-1.0) mg/dL AST 36 (15-37) U/L ALT 40 (16-63) U/L Alkaline Phosphatase 43 L (46-116) U/L Total Protein 4.7 L (6.4-8.2) g/dl Albumin 2.2 L (3.4-5.0) g/dl Globulin 2.5 gm/dL Albumin/Globulin Ratio 0.9 L (1-2) Prealbumin (17.0-34.0) mg/dL Blood Type Gel Antibody Screen Crossmatch Med Orders - Current: Current Medications Acetaminophen (Tylenol) 650 mg PO Q4H PRN PRN Reason: Pain (Mild 1-3)/fever Last Admin: 08/13/19 09:43 Dose: 650 mg Albuterol/Ipratropium (Duoneb 3.0-0.5 Mg/3 Ml) 3 ml NEB QIDRT [facility] Last Admin: 08/16/19 09:00 Dose: 3 ml Benztropine Mesylate (Cogentin) 1 mg IVPUSH BEDTIME [facility] Haloperidol Lactate (Haldol) 5 mg IVPUSH BEDTIME ONE Stop: 08/16/19 21:01 Haloperidol Lactate (Haldol) 2 mg IVPUSH 0600,1400 [facility] Hydromorphone HCl (Dilaudid) 1 mg IVPUSH Q3H PRN PRN Reason: Pain Last Admin: 08/16/19 08:15 Dose: 1 mg Magnesium Sulfate 4 gm/ Premix 50 mls @ 12.5 mls/hr IV ONETIME ONE Stop: 08/16/19 12:28 Last Admin: 08/16/19 08:46 Dose: 12.5 mls/hr Dextrose/Sodium Chloride (Dextrose 5%-Normal Saline) 1,000 mls @ 100 mls/hr IV ASDIRECTED [facility] Last Admin: 08/16/19 09:57 Dose: 100 mls/hr Ketorolac Tromethamine (Toradol) 15 mg IVPUSH Q6H PRN PRN Reason: Pain Stop: 08/18/19 00:31 Last Admin: 08/16/19 10:26 Dose: 15 mg Lorazepam (Ativan) 1 mg IVPUSH Q2H PRN PRN Reason: Anxiety Last Admin: 08/16/19 10:26 Dose: 1 mg Nicotine (Habitrol) 21 mg TRDERM DAILY [facility] Last Admin: 08/16/19 09:57 Dose: 21 mg Ondansetron HCl (Zofran) 4 mg IVPUSH Q4H PRN PRN Reason: Nausea/Vomiting Last Admin: 08/13/19 21:01 Dose: 4 mg Sodium Chloride (Saline Flush) 10 ml FLUSH ASDIRECTED PRN PRN Reason: Keep Vein Open Last Admin: 08/11/19 16:44 Dose: 10 ml Discontinued Medications Albuterol (Proventil Neb Soln) 2.5 mg NEB ONETIME PRN PRN Reason: bronchodilation Stop: 08/15/19 18:00 Azithromycin (Zithromax) 250 mg PO BEDTIME [facility] Last Admin: 08/11/19 21:06 Dose: 250 mg Benzonatate (Tessalon Perles) 100 mg PO BID [facility] Last Admin: 08/15/19 21:36 Dose: Not Given Benztropine Mesylate (Cogentin) 1 mg PO BEDTIME [facility] Last Admin: 08/15/19 21:37 Dose: Not Given Cefazolin Sodium (Ancef) Confirm Administered Dose 2 gm .ROUTE .STK-MED ONE Stop: 08/15/19 15:23 Cefazolin Sodium (Ancef) Confirm Administered Dose 2 gm .ROUTE .STK-MED ONE Stop: 08/15/19 18:13 Cefdinir (Omnicef) 300 mg PO BID [facility] Last Admin: 08/14/19 08:58 Dose: 300 mg Ceftriaxone Sodium (Rocephin) Confirm Administered Dose 2 gm IV .STK-MED ONE Stop: 08/07/19 19:45 Last Admin: 08/07/19 19:51 Dose: Not Given Diatrizoate Meglum/Diatrizoate Sod (Gastrografin 37%) 90 ml PO ONETIME ONE Stop: 08/11/19 16:42 Last Admin: 08/11/19 16:43 Dose: 90 ml Ephedrine Sulfate (Ephedrine Sulfate) 5 mg IVPUSH ASDIRECTED PRN PRN Reason: Hypotension Stop: 08/15/19 18:00 Fentanyl (Sublimaze) Confirm Administered Dose 250 mcg .ROUTE .STK-MED ONE Stop: 08/15/19 12:16 Fentanyl (Sublimaze) 50 mcg IVPUSH Q5M PRN PRN Reason: Pain Stop: 08/15/19 18:00 Fentanyl (Sublimaze) Confirm Administered Dose 100 mcg .ROUTE .STK-MED ONE Stop: 08/15/19 17:11 Glycopyrrolate () Confirm Administered Dose 1 mg .ROUTE .STK-MED ONE Stop: 08/15/19 16:12 Guaifenesin (Mucinex) 600 mg PO BID [facility] Last Admin: 08/15/19 21:37 Dose: Not Given Guaifenesin (Mucinex) 600 mg PO BID [facility] Last Admin: 08/08/19 12:51 Dose: Not Given Haloperidol Lactate (Haldol) 5 mg IVPUSH BEDTIME [facility] Last Admin: 08/15/19 21:51 Dose: 5 mg Haloperidol Lactate (Haldol) 5 mg IV ONETIME PRN PRN Reason: Other Stop: 08/16/19 08:00 Haloperidol Lactate (Haldol) 5 mg IVPUSH Q8H [facility] Last Admin: 08/16/19 09:59 Dose: Not Given Haloperidol Lactate (Haldol) 2 mg IVPUSH ONETIME ONE Stop: 08/16/19 09:01 Last Admin: 08/16/19 09:57 Dose: 2 mg Hydromorphone HCl (Dilaudid) Confirm Administered Dose 0.5 mg .ROUTE .STK-MED ONE Stop: 08/15/19 15:22 Hydromorphone HCl (Dilaudid) 0.5 mg IVPUSH Q15M PRN PRN Reason: Pain (severe 7-10) Stop: 08/15/19 18:00 Hydromorphone HCl (Dilaudid) Confirm Administered Dose 0.5 mg .ROUTE .STK-MED ONE Stop: 08/15/19 16:18 Hydromorphone HCl (Dilaudid) Confirm Administered Dose 0.5 mg .ROUTE .STK-MED ONE Stop: 08/15/19 18:43 Hydromorphone HCl (Dilaudid) 0.5 mg IVPUSH ONETIME ONE Stop: 08/15/19 20:51 Last Admin: 08/15/19 20:59 Dose: 0.5 mg Hydromorphone HCl (Dilaudid) Confirm Administered Dose 0.5 mg .ROUTE .STK-MED ONE Stop: 08/15/19 21:00 Last Admin: 08/15/19 21:34 Dose: Not Given Sodium Chloride (Normal Saline) 1,000 mls @ 150 mls/hr IV ASDIRECTED [facility] Last Admin: 08/08/19 06:02 Dose: 150 mls/hr Ceftriaxone Sodium 2 gm/ (Sodium Chloride) 100 mls @ 200 mls/hr IV ONETIME ONE Stop: 08/07/19 20:00 Last Admin: 08/07/19 19:47 Dose: Not Given Magnesium Sulfate 2 gm/ Premix 50 mls @ 25 mls/hr IV ONETIME ONE Stop: 08/07/19 21:42 Last Admin: 08/07/19 20:24 Dose: 25 mls/hr Ceftriaxone Sodium 2 gm/ (Sodium Chloride) 100 mls @ 200 mls/hr IV Q24H [facility] Stop: 08/07/19 20:15 Last Admin: 08/07/19 19:49 Dose: 200 mls/hr Sodium Chloride (Normal Saline) Confirm Administered Dose 100 mls @ as directed .ROUTE .STK-MED ONE Stop: 08/07/19 19:45 Last Admin: 08/07/19 19:51 Dose: Not Given Azithromycin 500 mg/ Sodium (Chloride) 250 mls @ 250 mls/hr IV Q24H [facility] Last Admin: 08/10/19 22:08 Dose: 250 mls/hr Ceftriaxone Sodium 2 gm/ (Sodium Chloride) 100 mls @ 200 mls/hr IV Q24H [facility] Last Admin: 08/10/19 21:25 Dose: 200 mls/hr Sodium Chloride (Normal Saline) 1,000 mls @ 75 mls/hr IV ASDIRECTED [facility] Sodium Phosphate 30 mmole/ (Sodium Chloride) 260 mls @ 130 mls/hr IV Q2H [facility] Stop: 08/10/19 15:59 Last Admin: 08/10/19 15:12 Dose: 130 mls/hr Magnesium Sulfate 2 gm/ Premix 50 mls @ 25 mls/hr IV ONETIME ONE Stop: 08/11/19 11:08 Last Admin: 08/11/19 09:38 Dose: 25 mls/hr Sodium Chloride (Normal Saline) 1,000 mls @ 75 mls/hr IV ASDIRECTED [facility] Last Admin: 08/12/19 09:24 Dose: 75 mls/hr Sodium Chloride (Normal Saline) Confirm Administered Dose 1,000 mls @ as directed .ROUTE .STK-MED ONE Stop: 08/11/19 17:34 Last Admin: 08/11/19 17:43 Dose: Not Given Dextrose/Sodium Chloride (Dextrose 5%-Normal Saline) 1,000 mls @ 100 mls/hr IV ASDIRECTED [facility] Last Infusion: 08/13/19 12:35 Dose: 50 mls/hr Dextrose/Sodium Chloride (Dextrose 5%-Normal Saline) 1,000 mls @ 50 mls/hr IV ASDIRECTED [facility] Dextrose/Sodium Chloride (Dextrose 5%-Normal Saline) 1,000 mls @ 125 mls/hr IV ASDIRECTED [facility] Last Admin: 08/16/19 01:04 Dose: 125 mls/hr Lidocaine HCl (Xylocaine-Mpf 1%) Confirm Administered Dose 4 mls @ as directed .ROUTE .STK-MED ONE Stop: 08/15/19 14:43 Lactated Ringer's (Ringers, Lactated) Confirm Administered Dose 1,000 mls @ as directed .ROUTE .STK-MED ONE Stop: 08/15/19 15:18 Lactated Ringer's (Ringers, Lactated) Confirm Administered Dose 1,000 mls @ as directed .ROUTE .STK-MED ONE Stop: 08/15/19 15:18 Phenylephrine HCl 1 mg/ Sodium (Chloride) 10.1 mls @ 1 mls/sec IV TITRATE [facility]; Protocol Stop: 08/15/19 18:00 Lactated Ringer's (Ringers, Lactated) Confirm Administered Dose 1,000 mls @ as directed .ROUTE .STK-MED ONE Stop: 08/15/19 15:57 Lactated Ringer's (Ringers, Lactated) Confirm Administered Dose 1,000 mls @ as directed .ROUTE .ST-MED ONE Stop: 08/15/19 18:09 Magnesium Sulfate 2 gm/ Premix 50 mls @ 25 mls/hr IV ONETIME ONE Stop: 08/16/19 10:10 Last Admin: 08/16/19 08:45 Dose: Not Given Influenza Virus Vaccine (Pharmacy To Dose - Influenza Vaccine) 1 each IM ONETIME ONE Stop: 08/07/19 22:46 Influenza Virus Vaccine (Fluzone High-Dose Syringe) 180 mcg IM .ONCE ONE Stop: 08/08/19 10:01 Iopamidol (Isovue-300 (61%)) 100 ml IVPUSH ONETIME ONE Stop: 08/11/19 16:42 Last Admin: 08/11/19 16:44 Dose: 100 ml Ipratropium House (Atrovent) 0.5 mg NEB Q4HRRT [facility] Last Admin: 08/11/19 13:29 Dose: 0.5 mg Ketamine HCl (Ketalar) Confirm Administered Dose 500 mg .ROUTE .STK-MED ONE Stop: 08/15/19 15:35 Ketorolac Tromethamine (Toradol) Confirm Administered Dose 30 mg .ROUTE .STK- MED ONE Stop: 08/15/19 18:40 Lidocaine HCl (Xylocaine 1%) Confirm Administered Dose 50 ml .ROUTE .STK-MED ONE Stop: 08/15/19 07:11 Last Admin: 08/15/19 15:09 Dose: 4.5 ml Lidocaine HCl (Xylocaine 1%) Confirm Administered Dose 50 ml .ROUTE .STK-MED ONE Stop: 08/15/19 11:28 Magnesium Hydroxide (Milk Of Magnesia) 30 ml PO ONETIME ONE Stop: 08/14/19 07:43 Last Admin: 08/14/19 08:58 Dose: 30 ml Methadone HCl (Methadone) 5 mg PO BID [facility] Last Admin: 08/15/19 21:37 Dose: Not Given Midazolam HCl (Versed 1 Mg/Ml) Confirm Administered Dose 2 mg .ROUTE .STK-MED ONE Stop: 08/15/19 12:15 Miscellaneous Medication (Phenylephrine 1 Mg/10 Ml-Ns) Confirm Administered Dose 1 mg IV .STK-MED ONE Stop: 08/15/19 15:05 Miscellaneous Medication (Phenylephrine 1 Mg/10 Ml-Ns) Confirm Administered Dose 1 mg IV .STK-MED ONE Stop: 08/15/19 16:18 Miscellaneous Medication (Phenylephrine 1 Mg/10 Ml-Ns) Confirm Administered Dose 1 mg IV .STK-MED ONE Stop: 08/15/19 17:47 Miscellaneous Medication (Phenylephrine 1 Mg/10 Ml-Ns) Confirm Administered Dose 1 mg IV .STK-MED ONE Stop: 08/15/19 18:34 Neostigmine Methylsulfate (Neostigmine Methylsulfate) Confirm Administered Dose 5 mg .ROUTE .STK-MED ONE Stop: 08/15/19 16:12 Ondansetron HCl (Zofran) 4 mg IVPUSH ONETIME ONE Stop: 08/07/19 16:51 Last Admin: 08/07/19 17:20 Dose: 4 mg Ondansetron HCl (Zofran) 4 mg IVPUSH ONETIME ONE Stop: 08/07/19 19:12 Last Admin: 08/07/19 19:51 Dose: 4 mg Ondansetron HCl (Zofran Odt) 4 mg PO Q6H PRN PRN Reason: nausea, able to take PO Last Admin: 08/13/19 09:44 Dose: 4 mg Ondansetron HCl (Zofran) 4 mg IV Q6H [facility] Last Admin: 08/08/19 06:03 Dose: Not Given Ondansetron HCl (Zofran) 4 mg IV Q6H [facility] Last Admin: 08/08/19 12:40 Dose: 4 mg Ondansetron HCl (Zofran) 4 mg IVPUSH Q8H PRN PRN Reason: Nausea/Vomiting Last Admin: 08/13/19 15:04 Dose: 4 mg Ondansetron HCl (Zofran) 4 mg IVPUSH ONETIME PRN PRN Reason: Nausea/Vomiting Stop: 08/15/19 18:00 Ondansetron HCl (Zofran) Confirm Administered Dose 4 mg .ROUTE .STK-MED ONE Stop: 08/15/19 16:13 Oseltamivir Phosphate (Tamiflu) 75 mg PO BID [facility] Stop: 08/12/19 09:01 Last Admin: 08/12/19 09:24 Dose: 75 mg Propofol (Diprivan 20 Ml) Confirm Administered Dose 200 mg .ROUTE .STK-MED ONE Stop: 08/15/19 12:15 Risperidone (Risperidal) 2 mg PO BEDTIME [facility] Last Admin: 08/15/19 21:36 Dose: Not Given Risperidone (Risperidal) 1 mg PO DAILY [facility] Last Admin: 08/15/19 10:49 Dose: Not Given Rocuronium House (Zemuron) Confirm Administered Dose 50 mg .ROUTE .STK-MED ONE Stop: 08/15/19 12:14 Rocuronium House (Zemuron) Confirm Administered Dose 50 mg .ROUTE .STK-MED ONE Stop: 08/15/19 16:10 Sodium Chloride (Saline Flush) 10 ml FLUSH ONETIME ONE Stop: 08/11/19 16:42 Last Admin: 08/11/19 16:46 Dose: 10 ml Trazodone HCl (Trazodone) 50 mg PO BEDTIME [facility] Last Admin: 08/15/19 21:50 Dose: Not Given - Exam Wound/Incisions: Healing Well General: Alert, Oriented, Cooperative, Mild Distress Lungs: Clear to Auscultation, Normal Respiratory Effort Cardiovascular: Regular Rate, Regular Rhythm, No Murmurs GI/Abdominal Exam: Soft, No Organomegaly, Tender (appropriately) Skin: Warm, Dry, Intact Sepsis Event Note - Evaluation Sepsis Screening Result: No Definite Risk - Focused Exam Vital Signs: Vital Signs Temp Temp Pulse Pulse Resp BP BP 08/16/19 09:02 08/16/19 07:59 98.4 F 63 20 127/66 08/16/19 05:19 08/16/19 03:58 96 128/72 08/16/19 03:55 98.4 F 96 128/72 08/16/19 03:53 98.5 F 103 H 18 128/72 08/16/19 03:32 97 97/56 L 08/16/19 03:01 90 107/71 08/16/19 02:31 96 108/65 08/16/19 02:02 94 103/52 L 08/16/19 01:32 107 H 102/64 08/16/19 01:01 103 H 134/75 08/16/19 00:31 105 H 150/81 H 08/16/19 00:01 99.1 F 103 H 133/71 08/16/19 00:00 99.2 F 102 H 18 133/71 08/15/19 23:31 104 H 138/71 08/15/19 23:02 103 H 123/70 08/15/19 22:31 108 H 133/75 Pulse Ox Pulse Ox 08/16/19 09:02 100 08/16/19 07:59 93 L 08/16/19 05:19 98 08/16/19 03:58 100 08/16/19 03:55 98 08/16/19 03:53 100 08/16/19 03:32 98 08/16/19 03:01 100 08/16/19 02:31 98 08/16/19 02:02 98 08/16/19 01:32 97 08/16/19 01:01 96 08/16/19 00:31 93 L 08/16/19 00:01 96 08/16/19 00:00 96 08/15/19 23:31 96 08/15/19 23:02 98 08/15/19 22:31 94 L Date Exam was Performed: 08/16/19 Time Exam was Performed: 10:28 - Problem List Review Problem List Initiated/Reviewed/Updated: No - My Orders Last 24 Hours: Active Orders 24 hr Category Date Time Status Notify Provider [RC] ASDIRECTED Care 08/15/19 15:37 Active Pulse Oximetry [RC] ASDIRECTED Care 08/15/19 15:37 Active CBC WITH AUTO DIFF [HEME] AM Lab 08/17/19 05:11 Ordered CBC WITH AUTO DIFF [HEME] AM Lab 08/18/19 05:11 Ordered CMP [COMPREHENSIVE METABOLIC PN,CMP] [CHEM] AM Lab 08/17/19 05:11 Ordered CMP [COMPREHENSIVE METABOLIC PN,CMP] [CHEM] AM Lab 08/18/19 05:11 Ordered MAGNESIUM [CHEM] AM Lab 08/17/19 05:11 Ordered MAGNESIUM [CHEM] AM Lab 08/18/19 05:11 Ordered PHOSPHORUS [CHEM] AM Lab 08/17/19 05:11 Ordered PHOSPHORUS [CHEM] AM Lab 08/18/19 05:11 Ordered Benztropine [Cogentin] Med 08/16/19 21:00 Active 1 mg IVPUSH BEDTIME Dextrose 5%-0.9% NaCl [Dextrose 5%-Normal Saline] 1,000 Med 08/16/19 09:00 Active ml IV ASDIRECTED HYDROmorphone [Dilaudid] Med 08/15/19 21:44 Active 1 mg IVPUSH Q3H PRN Haloperidol Lactate [Haldol] Med 08/16/19 14:00 Active 2 mg IVPUSH 0600,1400 Haloperidol Lactate [Haldol] Med 08/16/19 21:00 Once 5 mg IVPUSH BEDTIME ONE Ketorolac [Toradol] Med 08/16/19 00:30 Active 15 mg IVPUSH Q6H PRN LORazepam [Ativan] Med 08/15/19 21:02 Active 1 mg IVPUSH Q2H PRN Magnesium Sulfate/Water [Magnesium Sulfate in Water Med 08/16/19 08:29 Active Premix] 4 gm Premix Bag 1 bag IV ONETIME Medication Orders Acetaminophen (Tylenol) 650 mg PO Q4H PRN PRN Reason: Pain (Mild 1-3)/fever Last Admin: 08/13/19 09:43 Dose: 650 mg Albuterol/Ipratropium (Duoneb 3.0-0.5 Mg/3 Ml) 3 ml NEB QIDRT [facility] Last Admin: 08/16/19 09:00 Dose: 3 ml Admin: 08/16/19 05:18 Dose: 3 ml Admin: 08/15/19 22:01 Dose: 3 ml Admin: 08/15/19 16:49 Dose: Not Given Admin: 08/15/19 09:16 Dose: 3 ml Admin: 08/15/19 06:59 Dose: 3 ml Admin: 08/14/19 20:36 Dose: Not Given Admin: 08/14/19 16:20 Dose: 3 ml Admin: 08/14/19 09:08 Dose: 3 ml Admin: 08/14/19 06:51 Dose: Not Given Admin: 08/13/19 20:33 Dose: Not Given Admin: 08/13/19 16:14 Dose: Not Given Admin: 08/13/19 08:59 Dose: 3 ml Admin: 08/13/19 06:47 Dose: 3 ml Admin: 08/12/19 20:25 Dose: 3 ml Admin: 08/12/19 16:12 Dose: 3 ml Admin: 08/12/19 09:17 Dose: 3 ml Admin: 08/12/19 06:06 Dose: 3 ml Admin: 08/11/19 20:27 Dose: 3 ml Admin: 08/11/19 15:59 Dose: 3 ml Benztropine Mesylate (Cogentin) 1 mg IVPUSH BEDTIME [facility] Haloperidol Lactate (Haldol) 5 mg IVPUSH BEDTIME ONE Stop: 08/16/19 21:01 Haloperidol Lactate (Haldol) 2 mg IVPUSH 0600,1400 [facility] Hydromorphone HCl (Dilaudid) 1 mg IVPUSH Q3H PRN PRN Reason: Pain Last Admin: 08/16/19 08:15 Dose: 1 mg Admin: 08/16/19 00:57 Dose: 1 mg Admin: 08/15/19 21:57 Dose: 1 mg Magnesium Sulfate 4 gm/ Premix 50 mls @ 12.5 mls/hr IV ONETIME ONE Stop: 08/16/19 12:28 Last Admin: 08/16/19 08:46 Dose: 12.5 mls/hr Dextrose/Sodium Chloride (Dextrose 5%-Normal Saline) 1,000 mls @ 100 mls/hr IV ASDIRECTED [facility] Last Admin: 08/16/19 09:57 Dose: 100 mls/hr Ketorolac Tromethamine (Toradol) 15 mg IVPUSH Q6H PRN PRN Reason: Pain Stop: 08/18/19 00:31 Last Admin: 08/16/19 10:26 Dose: 15 mg Lorazepam (Ativan) 1 mg IVPUSH Q2H PRN PRN Reason: Anxiety Last Admin: 08/16/19 10:26 Dose: 1 mg Admin: 08/16/19 00:58 Dose: 1 mg Nicotine (Habitrol) 21 mg TRDERM DAILY [facility] Last Admin: 08/16/19 09:57 Dose: 21 mg Admin: 08/15/19 10:48 Dose: Not Given Admin: 08/14/19 09:02 Dose: Not Given Admin: 08/13/19 08:47 Dose: 21 mg Admin: 08/12/19 09:24 Dose: 21 mg Admin: 08/11/19 09:39 Dose: 21 mg Admin: 08/10/19 09:23 Dose: 21 mg Admin: 08/09/19 09:23 Dose: 21 mg Admin: 08/08/19 09:45 Dose: 21 mg Ondansetron HCl (Zofran) 4 mg IVPUSH Q4H PRN PRN Reason: Nausea/Vomiting Last Admin: 08/13/19 21:01 Dose: 4 mg Sodium Chloride (Saline Flush) 10 ml FLUSH ASDIRECTED PRN PRN Reason: Keep Vein Open Last Admin: 08/11/19 16:44 Dose: 10 ml Admin: 08/11/19 16:43 Dose: 10 ml Admin: 08/07/19 17:21 Dose: 10 ml - Assessment Assessment (Free Text/Narrative):: POD1 s/p ex lap, extensive lysis of adhesions, liver cyst excision, CVC placement. Progressing as expected on POD1. I anticipate several days of Ileus. - Plan Plan (Free Text/Narrative):: - Start TPN today - Magnesium replacement - Remove goff today - Out of bed to chair and ambulation - Continue NPO with IVF or TPN and NGT - IVF + TPN should rate should total 125 cc/hr. - pain control with Toradol at this time
[2019-08-16] MEDS ORDERED: CHROMIUM IV ONE ×6 (12:00→13:00)
[2019-08-16] MEDS ORDERED: MVI IV ONE ×6 (12:00→13:00)
[2019-08-16] MEDS ORDERED: [UNRECOGNIZED DRUG - OTHER] IV ONE ×6 (12:00→13:00)
[2019-08-16] MEDS ORDERED: ZINC IV ONE ×6 (12:00→13:00)
[2019-08-16] MEDS ORDERED: COPPER IV ONE ×6 (12:00→13:00)
[2019-08-16] MEDS ORDERED: MANG IV ONE ×6 (12:00→13:00)
[2019-08-16] MEDS ORDERED: VITAMIN K IV ONE ×6 (12:00→13:00)
--- NOTE | 2019-08-16 12:49 | PCM.PN ---
- General Info Date of Service: 08/16/19 Admission Dx/Problem (Free Text): Admission Diagnosis/Problem Admission Diagnosis/Problem Pneumonia involving left lung Subjective Update: Patient had uneventful night. He is strict n.p.o. and pain is moderately well controlled. - Review of Systems General: Reports: No Symptoms HEENT: Reports: No Symptoms Pulmonary: Reports: No Symptoms Cardiovascular: Reports: No Symptoms Gastrointestinal: Reports: Abdominal Pain - Patient Data Vitals - Most Recent: Last Vital Signs Temp 97.7 F 08/16/19 12:28 Pulse 88 08/16/19 12:28 Resp 16 08/16/19 12:28 BP 114/65 08/16/19 12:28 Pulse Ox 97 08/16/19 12:28 Orthostatic Blood Pressure [ 109/60 Standing] Orthostatic Blood Pressure [ 120/69 Sitting] Orthostatic Blood Pressure [ 120/79 Supine] Weight - Most Recent: 135 lb 12.8 oz I&O - Last 24 Hours: Intake & Output 08/15/19 08/16/19 08/16/19 22:59 06:59 14:59 Intake Total 700 Output Total 1140 1250 Balance -1140 -550 Lab Results Last 24 Hours: Laboratory Results - last 24 hr 08/14/19 08/14/19 08/16/19 Range/Units 10:20 10:20 05:05 WBC 19.85 H (4.23-9.07) K/mm3 RBC 3.66 L (4.63-6.08) M/mm3 Hgb 11.7 L (13.7-17.5) gm/dl Hct 36.7 L (40.1-51.0) % MCV 100.3 H (79.0-92.2) fl MCH 32.0 (25.7-32.2) pg MCHC 31.9 L (32.2-35.5) g/dl RDW Std Deviation 46.1 H (35.1-43.9) fL Plt Count 337 (163-337) K/mm3 MPV 8.7 L (9.4-12.3) fl Neut % (Auto) 91.7 H (34.0-67.9) % Lymph % (Auto) 2.8 L (21.8-53.1) % Storey % (Auto) 5.1 L (5.3-12.2) % Eos % (Auto) 0.1 L (0.8-7.0) Baso % (Auto) 0.1 (0.1-1.2) % Neut # (Auto) 18.21 H (1.78-5.38) K/mm3 Lymph # (Auto) 0.56 L (1.32-3.57) K/mm3 Storey # (Auto) 1.01 H (0.30-0.82) K/mm3 Eos # (Auto) 0.01 L (0.04-0.54) K/mm3 Baso # (Auto) 0.02 (0.01-0.08) K/mm3 Manual Slide Review Abnormal smear Sodium (136-145) mEq/L Potassium (3.5-5.1) mEq/L Chloride (98-107) mEq/L Carbon Dioxide (21-32) mEq/L Anion Gap (5-15) BUN (7-18) mg/dL Creatinine (0.7-1.3) mg/dL Est Cr Clr Drug Dosing mL/min Estimated GFR (MDRD) (>60) mL/min BUN/Creatinine Ratio (14-18) Glucose (80-115) mg/dL POC Glucose (80-115) mg/dL Calcium (8.5-10.1) mg/dL Phosphorus (2.6-4.7) mg/dL Magnesium (1.8-2.4) mg/dl Total Bilirubin (0.2-1.0) mg/dL AST (15-37) U/L ALT (16-63) U/L Alkaline Phosphatase (46-116) U/L Total Protein (6.4-8.2) g/dl Albumin (3.4-5.0) g/dl Globulin gm/dL Albumin/Globulin Ratio (1-2) Prealbumin 12.2 L (17.0-34.0) mg/dL Blood Type O POSITIVE Gel Antibody Screen Negative Crossmatch See Detail 08/16/19 08/16/19 Range/Units 05:05 12:22 WBC (4.23-9.07) K/mm3 RBC (4.63-6.08) M/mm3 Hgb (13.7-17.5) gm/dl Hct (40.1-51.0) % MCV (79.0-92.2) fl MCH (25.7-32.2) pg MCHC (32.2-35.5) g/dl RDW Std Deviation (35.1-43.9) fL Plt Count (163-337) K/mm3 MPV (9.4-12.3) fl Neut % (Auto) (34.0-67.9) % Lymph % (Auto) (21.8-53.1) % Storey % (Auto) (5.3-12.2) % Eos % (Auto) (0.8-7.0) Baso % (Auto) (0.1-1.2) % Neut # (Auto) (1.78-5.38) K/mm3 Lymph # (Auto) (1.32-3.57) K/mm3 Storey # (Auto) (0.30-0.82) K/mm3 Eos # (Auto) (0.04-0.54) K/mm3 Baso # (Auto) (0.01-0.08) K/mm3 Manual Slide Review Sodium 140 (136-145) mEq/L Potassium 4.1 (3.5-5.1) mEq/L Chloride 108 H (98-107) mEq/L Carbon Dioxide 25 (21-32) mEq/L Anion Gap 11.1 (5-15) BUN 10 (7-18) mg/dL Creatinine 0.7 (0.7-1.3) mg/dL Est Cr Clr Drug Dosing 85.55 mL/min Estimated GFR (MDRD) > 60 (>60) mL/min BUN/Creatinine Ratio 14.3 (14-18) Glucose 164 H (80-115) mg/dL POC Glucose 160 H (80-115) mg/dL Calcium 7.0 L (8.5-10.1) mg/dL Phosphorus 2.9 (2.6-4.7) mg/dL Magnesium 1.5 L (1.8-2.4) mg/dl Total Bilirubin 0.6 (0.2-1.0) mg/dL AST 36 (15-37) U/L ALT 40 (16-63) U/L Alkaline Phosphatase 43 L (46-116) U/L Total Protein 4.7 L (6.4-8.2) g/dl Albumin 2.2 L (3.4-5.0) g/dl Globulin 2.5 gm/dL Albumin/Globulin Ratio 0.9 L (1-2) Prealbumin (17.0-34.0) mg/dL Blood Type Gel Antibody Screen Crossmatch Med Orders - Current: Current Medications Acetaminophen (Tylenol) 650 mg PO Q4H PRN PRN Reason: Pain (Mild 1-3)/fever Last Admin: 08/13/19 09:43 Dose: 650 mg Albuterol/Ipratropium (Duoneb 3.0-0.5 Mg/3 Ml) 3 ml NEB QIDRT [facility] Last Admin: 08/16/19 09:00 Dose: 3 ml Famotidine (Pepcid) 20 mg IVPUSH BEDTIME [facility] Haloperidol Lactate (Haldol) 5 mg IVPUSH BEDTIME [facility] Haloperidol Lactate (Haldol) 2 mg IVPUSH 0600,1400 [facility] Hydromorphone HCl (Dilaudid) 1 mg IVPUSH Q3H PRN PRN Reason: Pain Last Admin: 08/16/19 08:15 Dose: 1 mg Dextrose/Sodium Chloride (Dextrose 5%-Normal Saline) 1,000 mls @ 100 mls/hr IV ASDIRECTED [facility] Stop: 08/16/19 13:00 Last Admin: 08/16/19 09:57 Dose: 100 mls/hr Dextrose/Sodium Chloride (Dextrose 5%-Normal Saline) 1,000 mls @ 20 mls/hr IV ASDIRECTED [facility] Multivitamins/Minerals 10 ml/Chromium/Copper/Manganese/Zinc 1 ml/ Amino Ac/ Electrol/Dextrose/Calcium 1,011 mls @ 45 mls/hr IV ONETIME ONE Stop: 08/17/19 11:27 Fat Emulsion Intravenous (Intralipid 20%) 500 mls @ 62.5 mls/hr IV MoWeFr [facility] Adjust Tpn Rate 720 mls @ 60 mls/hr .XX ONETIME ONE Stop: 08/17/19 12:59 Ketorolac Tromethamine (Toradol) 15 mg IVPUSH Q6H PRN PRN Reason: Pain Stop: 08/18/19 00:31 Last Admin: 08/16/19 10:26 Dose: 15 mg Lorazepam (Ativan) 1 mg IVPUSH Q2H PRN PRN Reason: Anxiety Last Admin: 08/16/19 10:26 Dose: 1 mg Nicotine (Habitrol) 21 mg TRDERM DAILY [facility] Last Admin: 08/16/19 09:57 Dose: 21 mg Benztropine 2mg/2ml (Vial) 0 each IVPUSH BEDTIME [facility] Ondansetron HCl (Zofran) 4 mg IVPUSH Q4H PRN PRN Reason: Nausea/Vomiting Last Admin: 08/13/19 21:01 Dose: 4 mg Sodium Chloride (Saline Flush) 10 ml FLUSH ASDIRECTED PRN PRN Reason: Keep Vein Open Last Admin: 08/11/19 16:44 Dose: 10 ml Discontinued Medications Albuterol (Proventil Neb Soln) 2.5 mg NEB ONETIME PRN PRN Reason: bronchodilation Stop: 08/15/19 18:00 Azithromycin (Zithromax) 250 mg PO BEDTIME [facility] Last Admin: 08/11/19 21:06 Dose: 250 mg Benzonatate (Tessalon Perles) 100 mg PO BID [facility] Last Admin: 08/15/19 21:36 Dose: Not Given Benztropine Mesylate (Cogentin) 1 mg PO BEDTIME [facility] Last Admin: 08/15/19 21:37 Dose: Not Given Benztropine Mesylate (Cogentin) 1 mg IVPUSH BEDTIME [facility] Cefazolin Sodium (Ancef) Confirm Administered Dose 2 gm .ROUTE .STK-MED ONE Stop: 08/15/19 15:23 Cefazolin Sodium (Ancef) Confirm Administered Dose 2 gm .ROUTE .STK-MED ONE Stop: 08/15/19 18:13 Cefdinir (Omnicef) 300 mg PO BID [facility] Last Admin: 08/14/19 08:58 Dose: 300 mg Ceftriaxone Sodium (Rocephin) Confirm Administered Dose 2 gm IV .STK-MED ONE Stop: 08/07/19 19:45 Last Admin: 08/07/19 19:51 Dose: Not Given Diatrizoate Meglum/Diatrizoate Sod (Gastrografin 37%) 90 ml PO ONETIME ONE Stop: 08/11/19 16:42 Last Admin: 08/11/19 16:43 Dose: 90 ml Ephedrine Sulfate (Ephedrine Sulfate) 5 mg IVPUSH ASDIRECTED PRN PRN Reason: Hypotension Stop: 08/15/19 18:00 Fentanyl (Sublimaze) Confirm Administered Dose 250 mcg .ROUTE .STK-MED ONE Stop: 08/15/19 12:16 Fentanyl (Sublimaze) 50 mcg IVPUSH Q5M PRN PRN Reason: Pain Stop: 08/15/19 18:00 Fentanyl (Sublimaze) Confirm Administered Dose 100 mcg .ROUTE .STK-MED ONE Stop: 08/15/19 17:11 Glycopyrrolate () Confirm Administered Dose 1 mg .ROUTE .STK-MED ONE Stop: 08/15/19 16:12 Guaifenesin (Mucinex) 600 mg PO BID [facility] Last Admin: 08/15/19 21:37 Dose: Not Given Guaifenesin (Mucinex) 600 mg PO BID [facility] Last Admin: 08/08/19 12:51 Dose: Not Given Haloperidol Lactate (Haldol) 5 mg IVPUSH BEDTIME [facility] Last Admin: 08/15/19 21:51 Dose: 5 mg Haloperidol Lactate (Haldol) 5 mg IV ONETIME PRN PRN Reason: Other Stop: 08/16/19 08:00 Haloperidol Lactate (Haldol) 5 mg IVPUSH Q8H [facility] Last Admin: 08/16/19 09:59 Dose: Not Given Haloperidol Lactate (Haldol) 2 mg IVPUSH ONETIME ONE Stop: 08/16/19 09:01 Last Admin: 08/16/19 09:57 Dose: 2 mg Hydromorphone HCl (Dilaudid) Confirm Administered Dose 0.5 mg .ROUTE .STK-MED ONE Stop: 08/15/19 15:22 Hydromorphone HCl (Dilaudid) 0.5 mg IVPUSH Q15M PRN PRN Reason: Pain (severe 7-10) Stop: 08/15/19 18:00 Hydromorphone HCl (Dilaudid) Confirm Administered Dose 0.5 mg .ROUTE .STK-MED ONE Stop: 08/15/19 16:18 Hydromorphone HCl (Dilaudid) Confirm Administered Dose 0.5 mg .ROUTE .STK-MED ONE Stop: 08/15/19 18:43 Hydromorphone HCl (Dilaudid) 0.5 mg IVPUSH ONETIME ONE Stop: 08/15/19 20:51 Last Admin: 08/15/19 20:59 Dose: 0.5 mg Hydromorphone HCl (Dilaudid) Confirm Administered Dose 0.5 mg .ROUTE .STK-MED ONE Stop: 08/15/19 21:00 Last Admin: 08/15/19 21:34 Dose: Not Given Sodium Chloride (Normal Saline) 1,000 mls @ 150 mls/hr IV ASDIRECTED [facility] Last Admin: 08/08/19 06:02 Dose: 150 mls/hr Ceftriaxone Sodium 2 gm/ (Sodium Chloride) 100 mls @ 200 mls/hr IV ONETIME ONE Stop: 08/07/19 20:00 Last Admin: 08/07/19 19:47 Dose: Not Given Magnesium Sulfate 2 gm/ Premix 50 mls @ 25 mls/hr IV ONETIME ONE Stop: 08/07/19 21:42 Last Admin: 08/07/19 20:24 Dose: 25 mls/hr Ceftriaxone Sodium 2 gm/ (Sodium Chloride) 100 mls @ 200 mls/hr IV Q24H [facility] Stop: 08/07/19 20:15 Last Admin: 08/07/19 19:49 Dose: 200 mls/hr Sodium Chloride (Normal Saline) Confirm Administered Dose 100 mls @ as directed .ROUTE .[facility] ONE Stop: 08/07/19 19:45 Last Admin: 08/07/19 19:51 Dose: Not Given Azithromycin 500 mg/ Sodium (Chloride) 250 mls @ 250 mls/hr IV Q24H [facility] Last Admin: 08/10/19 22:08 Dose: 250 mls/hr Ceftriaxone Sodium 2 gm/ (Sodium Chloride) 100 mls @ 200 mls/hr IV Q24H [facility] Last Admin: 08/10/19 21:25 Dose: 200 mls/hr Sodium Chloride (Normal Saline) 1,000 mls @ 75 mls/hr IV ASDIRECTED [facility] Sodium Phosphate 30 mmole/ (Sodium Chloride) 260 mls @ 130 mls/hr IV Q2H [facility] Stop: 08/10/19 15:59 Last Admin: 08/10/19 15:12 Dose: 130 mls/hr Magnesium Sulfate 2 gm/ Premix 50 mls @ 25 mls/hr IV ONETIME ONE Stop: 08/11/19 11:08 Last Admin: 08/11/19 09:38 Dose: 25 mls/hr Sodium Chloride (Normal Saline) 1,000 mls @ 75 mls/hr IV ASDIRECTED [facility] Last Admin: 08/12/19 09:24 Dose: 75 mls/hr Sodium Chloride (Normal Saline) Confirm Administered Dose 1,000 mls @ as directed .ROUTE .STK-MED ONE Stop: 08/11/19 17:34 Last Admin: 08/11/19 17:43 Dose: Not Given Dextrose/Sodium Chloride (Dextrose 5%-Normal Saline) 1,000 mls @ 100 mls/hr IV ASDIRECTED [facility] Last Infusion: 08/13/19 12:35 Dose: 50 mls/hr Dextrose/Sodium Chloride (Dextrose 5%-Normal Saline) 1,000 mls @ 50 mls/hr IV ASDIRECTED [facility] Dextrose/Sodium Chloride (Dextrose 5%-Normal Saline) 1,000 mls @ 125 mls/hr IV ASDIRECTED [facility] Last Admin: 08/16/19 01:04 Dose: 125 mls/hr Lidocaine HCl (Xylocaine-Mpf 1%) Confirm Administered Dose 4 mls @ as directed .ROUTE .ST-MED ONE Stop: 08/15/19 14:43 Lactated Ringer's (Ringers, Lactated) Confirm Administered Dose 1,000 mls @ as directed .ROUTE .ST-MED ONE Stop: 08/15/19 15:18 Lactated Ringer's (Ringers, Lactated) Confirm Administered Dose 1,000 mls @ as directed .ROUTE .STK-MED ONE Stop: 08/15/19 15:18 Phenylephrine HCl 1 mg/ Sodium (Chloride) 10.1 mls @ 1 mls/sec IV TITRATE [facility]; Protocol Stop: 08/15/19 18:00 Lactated Ringer's (Ringers, Lactated) Confirm Administered Dose 1,000 mls @ as directed .ROUTE .STK-MED ONE Stop: 08/15/19 15:57 Lactated Ringer's (Ringers, Lactated) Confirm Administered Dose 1,000 mls @ as directed .ROUTE .STK-MED ONE Stop: 08/15/19 18:09 Magnesium Sulfate 2 gm/ Premix 50 mls @ 25 mls/hr IV ONETIME ONE Stop: 08/16/19 10:10 Last Admin: 08/16/19 08:45 Dose: Not Given Magnesium Sulfate 4 gm/ Premix 50 mls @ 12.5 mls/hr IV ONETIME ONE Stop: 08/16/19 12:28 Last Admin: 08/16/19 08:46 Dose: 12.5 mls/hr Influenza Virus Vaccine (Pharmacy To Dose - Influenza Vaccine) 1 each IM ONETIME ONE Stop: 08/07/19 22:46 Influenza Virus Vaccine (Fluzone High-Dose Syringe) 180 mcg IM .ONCE ONE Stop: 08/08/19 10:01 Iopamidol (Isovue-300 (61%)) 100 ml IVPUSH ONETIME ONE Stop: 08/11/19 16:42 Last Admin: 08/11/19 16:44 Dose: 100 ml Ipratropium Salol (Atrovent) 0.5 mg NEB Q4HRRT [facility] Last Admin: 08/11/19 13:29 Dose: 0.5 mg Ketamine HCl (Ketalar) Confirm Administered Dose 500 mg .ROUTE .STK-MED ONE Stop: 08/15/19 15:35 Ketorolac Tromethamine (Toradol) Confirm Administered Dose 30 mg .ROUTE .STK- MED ONE Stop: 08/15/19 18:40 Lidocaine HCl (Xylocaine 1%) Confirm Administered Dose 50 ml .ROUTE .STK-MED ONE Stop: 08/15/19 07:11 Last Admin: 08/15/19 15:09 Dose: 4.5 ml Lidocaine HCl (Xylocaine 1%) Confirm Administered Dose 50 ml .ROUTE .STK-MED ONE Stop: 08/15/19 11:28 Magnesium Hydroxide (Milk Of Magnesia) 30 ml PO ONETIME ONE Stop: 08/14/19 07:43 Last Admin: 08/14/19 08:58 Dose: 30 ml Methadone HCl (Methadone) 5 mg PO BID [facility] Last Admin: 08/15/19 21:37 Dose: Not Given Midazolam HCl (Versed 1 Mg/Ml) Confirm Administered Dose 2 mg .ROUTE .STK-MED ONE Stop: 08/15/19 12:15 Miscellaneous Medication (Phenylephrine 1 Mg/10 Ml-Ns) Confirm Administered Dose 1 mg IV .STK-MED ONE Stop: 08/15/19 15:05 Miscellaneous Medication (Phenylephrine 1 Mg/10 Ml-Ns) Confirm Administered Dose 1 mg IV .STK-MED ONE Stop: 08/15/19 16:18 Miscellaneous Medication (Phenylephrine 1 Mg/10 Ml-Ns) Confirm Administered Dose 1 mg IV .STK-MED ONE Stop: 08/15/19 17:47 Miscellaneous Medication (Phenylephrine 1 Mg/10 Ml-Ns) Confirm Administered Dose 1 mg IV .STK-MED ONE Stop: 08/15/19 18:34 Neostigmine Methylsulfate (Neostigmine Methylsulfate) Confirm Administered Dose 5 mg .ROUTE .STK-MED ONE Stop: 08/15/19 16:12 Ondansetron HCl (Zofran) 4 mg IVPUSH ONETIME ONE Stop: 08/07/19 16:51 Last Admin: 08/07/19 17:20 Dose: 4 mg Ondansetron HCl (Zofran) 4 mg IVPUSH ONETIME ONE Stop: 08/07/19 19:12 Last Admin: 08/07/19 19:51 Dose: 4 mg Ondansetron HCl (Zofran Odt) 4 mg PO Q6H PRN PRN Reason: nausea, able to take PO Last Admin: 08/13/19 09:44 Dose: 4 mg Ondansetron HCl (Zofran) 4 mg IV Q6H [facility] Last Admin: 08/08/19 06:03 Dose: Not Given Ondansetron HCl (Zofran) 4 mg IV Q6H [facility] Last Admin: 08/08/19 12:40 Dose: 4 mg Ondansetron HCl (Zofran) 4 mg IVPUSH Q8H PRN PRN Reason: Nausea/Vomiting Last Admin: 08/13/19 15:04 Dose: 4 mg Ondansetron HCl (Zofran) 4 mg IVPUSH ONETIME PRN PRN Reason: Nausea/Vomiting Stop: 08/15/19 18:00 Ondansetron HCl (Zofran) Confirm Administered Dose 4 mg .ROUTE .STK-MED ONE Stop: 08/15/19 16:13 Oseltamivir Phosphate (Tamiflu) 75 mg PO BID [facility] Stop: 08/12/19 09:01 Last Admin: 08/12/19 09:24 Dose: 75 mg Propofol (Diprivan 20 Ml) Confirm Administered Dose 200 mg .ROUTE .STK-MED ONE Stop: 08/15/19 12:15 Risperidone (Risperidal) 2 mg PO BEDTIME [facility] Last Admin: 08/15/19 21:36 Dose: Not Given Risperidone (Risperidal) 1 mg PO DAILY [facility] Last Admin: 08/15/19 10:49 Dose: Not Given Rocuronium Salol (Zemuron) Confirm Administered Dose 50 mg .ROUTE .STK-MED ONE Stop: 08/15/19 12:14 Rocuronium Salol (Zemuron) Confirm Administered Dose 50 mg .ROUTE .STK-MED ONE Stop: 08/15/19 16:10 Sodium Chloride (Saline Flush) 10 ml FLUSH ONETIME ONE Stop: 08/11/19 16:42 Last Admin: 08/11/19 16:46 Dose: 10 ml Trazodone HCl (Trazodone) 50 mg PO BEDTIME [facility] Last Admin: 08/15/19 21:50 Dose: Not Given - Exam Quality Assessment: Supplemental Oxygen General: Alert, Oriented HEENT: Pupils Equal, Mucous Membr. Moist/[place] Neck: Supple Lungs: Clear to Auscultation, Normal Respiratory Effort Cardiovascular: Regular Rate, Regular Rhythm GI/Abdominal Exam: Abnormal Bowel Sounds (Absent) Back Exam: Normal Inspection Extremities: Normal Inspection, Normal Range of Motion, Non-Tender, No Pedal Edema Skin: Warm, Dry, Intact Psy/Mental Status: Alert, Normal Affect, Normal Mood Sepsis Event Note - Evaluation Sepsis Screening Result: No Definite Risk - Focused Exam Vital Signs: Vital Signs Temp Temp Pulse Pulse Resp BP BP 08/16/19 12:28 97.7 F 88 16 114/65 08/16/19 09:02 08/16/19 07:59 98.4 F 63 20 127/66 08/16/19 07:45 98.4 F 93 20 127/66 08/16/19 05:19 08/16/19 03:58 96 128/72 08/16/19 03:55 98.4 F 96 128/72 08/16/19 03:53 98.5 F 103 H 18 128/72 08/16/19 03:32 97 97/56 L 08/16/19 03:01 90 107/71 08/16/19 02:31 96 108/65 08/16/19 02:02 94 103/52 L 08/16/19 01:32 107 H 102/64 08/16/19 01:01 103 H 134/75 Pulse Ox Pulse Ox 08/16/19 12:28 97 08/16/19 09:02 100 08/16/19 07:59 93 L 08/16/19 07:45 93 L 08/16/19 05:19 98 08/16/19 03:58 100 08/16/19 03:55 98 08/16/19 03:53 100 08/16/19 03:32 98 08/16/19 03:01 100 08/16/19 02:31 98 08/16/19 02:02 98 08/16/19 01:32 97 08/16/19 01:01 96 Date Exam was Performed: 08/16/19 Time Exam was Performed: 14:18 - Problem List Review Problem List Initiated/Reviewed/Updated: Yes - My Orders Last 24 Hours: My Active Orders 08/15/19 21:02 LORazepam [Ativan] 1 mg IVPUSH Q2H PRN 08/16/19 14:00 Haloperidol Lactate [Haldol] 2 mg IVPUSH 0600,1400 08/16/19 21:00 Haloperidol Lactate [Haldol] 5 mg IVPUSH BEDTIME Non-Formulary Medication [NF Drug] 0 each IVPUSH BEDTIME 08/17/19 05:11 CBC WITH AUTO DIFF [HEME] AM CMP [COMPREHENSIVE METABOLIC PN,CMP] [CHEM] AM MAGNESIUM [CHEM] AM PHOSPHORUS [CHEM] AM 08/17/19 08:00 Consult to Occupational Therapy [OT Evaluation and Treatment] [CONS] Routine Consult to Physical Therapy [PT Evaluation and Treatment] [CONS] Routine 08/17/19 12:00 Fat Emulsion [Intralipid 20%] 500 ml IV MoWeFr 08/18/19 05:11 CBC WITH AUTO DIFF [HEME] AM CMP [COMPREHENSIVE METABOLIC PN,CMP] [CHEM] AM MAGNESIUM [CHEM] AM PHOSPHORUS [CHEM] AM - Plan Plan:: Postop day 1 Exploratory laparotomy, extensive lysis of adhesions, liver cyst excision, CVC placement. Patient is doing well. Postop ileus. Plan - Start TPN -Dr. Egan managing pain and TPN co-managed with dietary and pharmacy SBO -post exploratory open laparotomy Initially presented with intractable nausea and vomiting to ED Has been stable since admission, vomited x1 on 08/11/19 after drinking coffee Tender knob in RUQ noted on physical exam - not gallbladder, calcified mass on CT. Patient reports chronic since [address] scan Multiple adhesions and right upper quadrant mass excised. PLAN -NG tube to low intermittent suctioning -Strict NPO - Monitor blood sugars Pneumonia -clinically resolved Acute hypoxemic respiratory failure -resolved Emphysema Chronic cough, acutely worsening in past week Associated with fever - none on floor CXR with infiltrate in posterior lobes [employer] evaluation - regular diet, thin liquids PLAN -Completed azithromycin, Tamiflu and Rocephin - Atrovent q4h - Incentive spirometer/Acapella - ABG as needed - Goal SatO2 > 88% Lung nodule, right lung Active Smoker Smokes 2/4ppd > 40y Stable lung nodule noted on CT exam 08/11/19 PLAN - Nicotine patch Schizophrenia Home management with Trazodone, Risperdal and Benztropine PLAN -Patient is strict n.p.o. and on oral Resporal. Will transition to Haldol and Ativan. -Transition all meds to IV as able. Chronic pain Methadone maintenance therapy patient Denies any current pain PLAN -Pain management per Dr. Egan Muscle wasting Hypoalbuminemia Macrocytosis without anemia Significant muscle wasting Vitamin B12 level and folic acid level WNL Pre-albumin low Follow electrolytes closely PROPHYLAXIS DVT- compression stockings CODE STATUS: FULL CODE LOS >96 HRS due to exploratory laparotomy.
[2019-08-16] MEDS: Haloperidol Lactate 5 MG/ML SDV IVPUSH SCH ×2 (14:36→21:57)
[2019-08-16] MEDS ORDERED: HYDROmorphone 0.5 MG/0.5 ML Syringe IVPUSH PRN (18:13)
[2019-08-16] MEDS: Famotidine 20 MG/2 ML SDV IVPUSH SCH (21:57)
[2019-08-16] MEDS: BENZTROPINE 2MG/2ML VIAL IVPUSH SCH (22:01)
[2019-08-17] MEDS ORDERED: [UNRECOGNIZED DRUG - REMARK] ONE ×2 (01:00→13:00)
[2019-08-17] MEDS: Haloperidol Lactate 5 MG/ML SDV IVPUSH SCH ×3 (06:03→20:30)
[2019-08-17] MEDS: Ketorolac 15 MG/ML SDV IVPUSH PRN ×3 (06:03→20:26)
--- NOTE | 2019-08-17 06:26 | CR ---
Chest: Frontal view of the chest was obtained. Comparison: Prior chest x-ray of 08/15/19. Heart size is normal. Tortuous thoracic aorta is seen. Left lung mass remains stable. Right jugular line is unchanged in position. Nasogastric tube is coiled within the stomach. There is approximately 10 cm of tubing that extends cephalad. This 2 will need to be repositioned. Slight scarring is noted within the right midlung. No acute parenchymal change is otherwise seen. Impression: 1. Coiled nasogastric tube as noted above. This tube will need to be repositioned. 2. Other findings which are stable. Nothing acute is otherwise seen. Diagnostic code #3 This report was dictated in MDT
[2019-08-17] MEDS: Albuterol/Ipratropium 3.0-0.5 MG/3 ML Neb Soln NEB SCH ×2 (06:50→09:10)
--- NOTE | 2019-08-17 06:55 | CR ---
Chest: Portable view of the chest was obtained 6:10 AM). Comparison: Previous study performed earlier on same day (5:37 AM). Heart size is normal. Tortuous thoracic aorta is noted. Right jugular line is stable. Left lung mass is noted. Slight scarring is noted within the right mid lung with pleural thickening which is stable. Lungs otherwise are clear. Nasogastric tube is seen with tip lying within the stomach. Impression: 1. Repositioning of nasogastric tube from prior study with tip now seen within the stomach. 2. Other findings as noted above which are believed to be stable. Diagnostic code #2 This report was dictated in MDT
[2019-08-17] MEDS: Nicotine 21 MG/24 Hr Patch TRDERM SCH (08:33)
[2019-08-17] MEDS ORDERED: [UNRECOGNIZED DRUG - OTHER] IV SCH ×3 (09:00)
[2019-08-17] MEDS ORDERED: MVI IV SCH ×3 (09:00)
[2019-08-17] MEDS ORDERED: MANG IV SCH ×3 (09:00)
[2019-08-17] MEDS ORDERED: COPPER IV SCH ×3 (09:00)
[2019-08-17] MEDS ORDERED: VITAMIN K IV SCH ×3 (09:00)
[2019-08-17] MEDS ORDERED: CHROMIUM IV SCH ×3 (09:00)
[2019-08-17] MEDS ORDERED: ZINC IV SCH ×3 (09:00)
--- NOTE | 2019-08-17 09:04 | PCM.PN ---
- General Info Date of Service: 08/17/19 Admission Dx/Problem (Free Text): Admission Diagnosis/Problem Admission Diagnosis/Problem Pneumonia involving left lung Functional Status: Reports: Tolerating Diet, Ambulating, Urinating, Incentive Spirometry, Other (acapella ). Denies: New Symptoms - Review of Systems General: Reports: No Symptoms, Weakness, Fatigue, Malaise. Denies: Fever, Chills HEENT: Reports: No Symptoms. Denies: Headaches, Sore Throat Pulmonary: Reports: No Symptoms. Denies: Shortness of Breath, Cough, Sputum, Wheezing Cardiovascular: Reports: No Symptoms. Denies: Chest Pain, Palpitations, Edema Gastrointestinal: Reports: No Symptoms, Abdominal Pain, Other (Belching ). Denies: Constipation, Diarrhea, Flatus, Nausea (once today but not now ), Vomiting Genitourinary: Reports: No Symptoms. Denies: Pain Musculoskeletal: Reports: No Symptoms Skin: Reports: No Symptoms Neurological: Reports: No Symptoms Psychiatric: Reports: No Symptoms - Patient Data Vitals - Most Recent: Last Vital Signs Temp 98.1 F 08/17/19 05:16 Pulse 88 08/17/19 05:16 Resp 18 08/17/19 05:16 BP 138/58 L 08/17/19 05:16 Pulse Ox 92 L 08/17/19 06:50 Orthostatic Blood Pressure [ 109/60 Standing] Orthostatic Blood Pressure [ 120/69 Sitting] Orthostatic Blood Pressure [ 120/79 Supine] Weight - Most Recent: 134 lb 6.4 oz I&O - Last 24 Hours: Intake & Output 08/16/19 08/17/19 08/17/19 22:59 06:59 14:59 Intake Total 1110 923 Output Total 1015 1150 Balance 95 -227 Lab Results Last 24 Hours: Laboratory Results - last 24 hr 08/16/19 08/16/19 08/17/19 Range/Units 12:22 18:31 00:53 WBC (4.23-9.07) K/mm3 RBC (4.63-6.08) M/mm3 Hgb (13.7-17.5) gm/dl Hct (40.1-51.0) % MCV (79.0-92.2) fl MCH (25.7-32.2) pg MCHC (32.2-35.5) g/dl RDW Std Deviation (35.1-43.9) fL Plt Count (163-337) K/mm3 MPV (9.4-12.3) fl Neut % (Auto) (34.0-67.9) % Lymph % (Auto) (21.8-53.1) % [place] % (Auto) (5.3-12.2) % Eos % (Auto) (0.8-7.0) Baso % (Auto) (0.1-1.2) % Neut # (Auto) (1.78-5.38) K/mm3 Lymph # (Auto) (1.32-3.57) K/mm3 [place] # (Auto) (0.30-0.82) K/mm3 Eos # (Auto) (0.04-0.54) K/mm3 Baso # (Auto) (0.01-0.08) K/mm3 Manual Slide Review Sodium (136-145) mEq/L Potassium (3.5-5.1) mEq/L Chloride (98-107) mEq/L Carbon Dioxide (21-32) mEq/L Anion Gap (5-15) BUN (7-18) mg/dL Creatinine (0.7-1.3) mg/dL Est Cr Clr Drug Dosing mL/min Estimated GFR (MDRD) (>60) mL/min BUN/Creatinine Ratio (14-18) Glucose (80-115) mg/dL POC Glucose 160 H 150 H 128 H (80-115) mg/dL Calcium (8.5-10.1) mg/dL Phosphorus (2.6-4.7) mg/dL Magnesium (1.8-2.4) mg/dl Total Bilirubin (0.2-1.0) mg/dL AST (15-37) U/L ALT (16-63) U/L Alkaline Phosphatase (46-116) U/L Total Protein (6.4-8.2) g/dl Albumin (3.4-5.0) g/dl Globulin gm/dL Albumin/Globulin Ratio (1-2) 08/17/19 08/17/19 Range/Units 05:03 05:03 WBC 11.32 H (4.23-9.07) K/mm3 RBC 3.36 L (4.63-6.08) M/mm3 Hgb 10.6 L (13.7-17.5) gm/dl Hct 33.5 L (40.1-51.0) % MCV 99.7 H (79.0-92.2) fl MCH 31.5 (25.7-32.2) pg MCHC 31.6 L (32.2-35.5) g/dl RDW Std Deviation 45.5 H (35.1-43.9) fL Plt Count 307 (163-337) K/mm3 MPV 9.3 L (9.4-12.3) fl Neut % (Auto) 85.8 H (34.0-67.9) % Lymph % (Auto) 7.2 L (21.8-53.1) % [place] % (Auto) 6.2 (5.3-12.2) % Eos % (Auto) 0.4 L (0.8-7.0) Baso % (Auto) 0.1 (0.1-1.2) % Neut # (Auto) 9.72 H (1.78-5.38) K/mm3 Lymph # (Auto) 0.82 L (1.32-3.57) K/mm3 [place] # (Auto) 0.70 (0.30-0.82) K/mm3 Eos # (Auto) 0.04 (0.04-0.54) K/mm3 Baso # (Auto) 0.01 (0.01-0.08) K/mm3 Manual Slide Review Normal smear Sodium 141 (136-145) mEq/L Potassium 3.7 (3.5-5.1) mEq/L Chloride 106 (98-107) mEq/L Carbon Dioxide 28 (21-32) mEq/L Anion Gap 10.7 (5-15) BUN 14 (7-18) mg/dL Creatinine 0.7 (0.7-1.3) mg/dL Est Cr Clr Drug Dosing 84.67 mL/min Estimated GFR (MDRD) > 60 (>60) mL/min BUN/Creatinine Ratio 20.0 H (14-18) Glucose 132 H (80-115) mg/dL POC Glucose (80-115) mg/dL Calcium 7.7 L (8.5-10.1) mg/dL Phosphorus 2.9 (2.6-4.7) mg/dL Magnesium 2.1 (1.8-2.4) mg/dl Total Bilirubin 0.4 (0.2-1.0) mg/dL AST 17 (15-37) U/L ALT 26 (16-63) U/L Alkaline Phosphatase 44 L (46-116) U/L Total Protein 5.0 L (6.4-8.2) g/dl Albumin 2.2 L (3.4-5.0) g/dl Globulin 2.8 gm/dL Albumin/Globulin Ratio 0.8 L (1-2) Med Orders - Current: Current Medications Acetaminophen (Tylenol) 650 mg PO Q4H PRN PRN Reason: Pain (Mild 1-3)/fever Last Admin: 08/13/19 09:43 Dose: 650 mg Albuterol/Ipratropium (Duoneb 3.0-0.5 Mg/3 Ml) 3 ml NEB QIDRT [facility] Last Admin: 08/17/19 06:50 Dose: 3 ml Famotidine (Pepcid) 20 mg IVPUSH BEDTIME [facility] Last Admin: 08/16/19 21:57 Dose: 20 mg Haloperidol Lactate (Haldol) 5 mg IVPUSH BEDTIME [facility] Last Admin: 08/16/19 21:57 Dose: 5 mg Haloperidol Lactate (Haldol) 2 mg IVPUSH 0600,1400 [facility] Last Admin: 08/17/19 06:03 Dose: 2 mg Hydromorphone HCl (Dilaudid) 1 mg IVPUSH Q3H PRN PRN Reason: Pain Last Admin: 08/16/19 18:55 Dose: 1 mg Dextrose/Sodium Chloride (Dextrose 5%-Normal Saline) 1,000 mls @ 20 mls/hr IV ASDIRECTED [facility] Last Admin: 08/17/19 06:33 Dose: 20 mls/hr Multivitamins/Minerals 10 ml/Chromium/Copper/Manganese/Zinc 1 ml/ Amino Ac/ Electrol/Dextrose/Calcium 1,011 mls @ 45 mls/hr IV ONETIME ONE Stop: 08/17/19 11:27 Last Admin: 08/16/19 13:15 Dose: 45 mls/hr Fat Emulsion Intravenous (Intralipid 20%) 500 mls @ 62.5 mls/hr IV MoWeFr [facility] Multivitamins/Minerals 10 ml/Chromium/Copper/Manganese/Zinc 1 ml/ Amino Ac/ Electrol/Dextrose/Calcium 1,011 mls @ 60 mls/hr IV TITRATE [facility] Stop: 08/18/19 01:50 Last Admin: 08/17/19 08:52 Dose: 60 mls/hr Adjust Tpn Rate 720 mls @ 75 mls/hr .XX ONETIME ONE Stop: 08/17/19 22:35 Ketorolac Tromethamine (Toradol) 15 mg IVPUSH Q6H PRN PRN Reason: Pain Stop: 08/18/19 00:31 Last Admin: 08/17/19 06:03 Dose: 15 mg Lorazepam (Ativan) 1 mg IVPUSH Q2H PRN PRN Reason: Anxiety Last Admin: 08/16/19 22:14 Dose: 1 mg Nicotine (Habitrol) 21 mg TRDERM DAILY [facility] Last Admin: 08/17/19 08:33 Dose: 21 mg Benztropine 2mg/2ml (Vial) 0 each IVPUSH BEDTIME [facility] Last Admin: 08/16/19 22:01 Dose: 1 each Ondansetron HCl (Zofran) 4 mg IVPUSH Q4H PRN PRN Reason: Nausea/Vomiting Last Admin: 08/13/19 21:01 Dose: 4 mg Pharmacy Consult (Consult To Pharmacy) 0 each .XX DAILY PRN PRN Reason: TPN MONITORING Sodium Chloride (Saline Flush) 10 ml FLUSH ASDIRECTED PRN PRN Reason: Keep Vein Open Last Admin: 08/11/19 16:44 Dose: 10 ml Discontinued Medications Albuterol (Proventil Neb Soln) 2.5 mg NEB ONETIME PRN PRN Reason: bronchodilation Stop: 08/15/19 18:00 Azithromycin (Zithromax) 250 mg PO BEDTIME [facility] Last Admin: 08/11/19 21:06 Dose: 250 mg Benzonatate (Tessalon Perles) 100 mg PO BID [facility] Last Admin: 08/15/19 21:36 Dose: Not Given Benztropine Mesylate (Cogentin) 1 mg PO BEDTIME [facility] Last Admin: 08/15/19 21:37 Dose: Not Given Benztropine Mesylate (Cogentin) 1 mg IVPUSH BEDTIME [facility] Cefazolin Sodium (Ancef) Confirm Administered Dose 2 gm .ROUTE .STK-MED ONE Stop: 08/15/19 15:23 Cefazolin Sodium (Ancef) Confirm Administered Dose 2 gm .ROUTE .STK-MED ONE Stop: 08/15/19 18:13 Cefdinir (Omnicef) 300 mg PO BID [facility] Last Admin: 08/14/19 08:58 Dose: 300 mg Ceftriaxone Sodium (Rocephin) Confirm Administered Dose 2 gm IV .STK-MED ONE Stop: 08/07/19 19:45 Last Admin: 08/07/19 19:51 Dose: Not Given Diatrizoate Meglum/Diatrizoate Sod (Gastrografin 37%) 90 ml PO ONETIME ONE Stop: 08/11/19 16:42 Last Admin: 08/11/19 16:43 Dose: 90 ml Ephedrine Sulfate (Ephedrine Sulfate) 5 mg IVPUSH ASDIRECTED PRN PRN Reason: Hypotension Stop: 08/15/19 18:00 Fentanyl (Sublimaze) Confirm Administered Dose 250 mcg .ROUTE .STK-MED ONE Stop: 08/15/19 12:16 Fentanyl (Sublimaze) 50 mcg IVPUSH Q5M PRN PRN Reason: Pain Stop: 08/15/19 18:00 Fentanyl (Sublimaze) Confirm Administered Dose 100 mcg .ROUTE .STK-MED ONE Stop: 08/15/19 17:11 Glycopyrrolate () Confirm Administered Dose 1 mg .ROUTE .STK-MED ONE Stop: 08/15/19 16:12 Guaifenesin (Mucinex) 600 mg PO BID [facility] Last Admin: 08/15/19 21:37 Dose: Not Given Guaifenesin (Mucinex) 600 mg PO BID [facility] Last Admin: 08/08/19 12:51 Dose: Not Given Haloperidol Lactate (Haldol) 5 mg IVPUSH BEDTIME [facility] Last Admin: 08/15/19 21:51 Dose: 5 mg Haloperidol Lactate (Haldol) 5 mg IV ONETIME PRN PRN Reason: Other Stop: 08/16/19 08:00 Haloperidol Lactate (Haldol) 5 mg IVPUSH Q8H [facility] Last Admin: 08/16/19 09:59 Dose: Not Given Haloperidol Lactate (Haldol) 2 mg IVPUSH ONETIME ONE Stop: 08/16/19 09:01 Last Admin: 08/16/19 09:57 Dose: 2 mg Hydromorphone HCl (Dilaudid) Confirm Administered Dose 0.5 mg .ROUTE .STK-MED ONE Stop: 08/15/19 15:22 Hydromorphone HCl (Dilaudid) 0.5 mg IVPUSH Q15M PRN PRN Reason: Pain (severe 7-10) Stop: 08/15/19 18:00 Hydromorphone HCl (Dilaudid) Confirm Administered Dose 0.5 mg .ROUTE .STK-MED ONE Stop: 08/15/19 16:18 Hydromorphone HCl (Dilaudid) Confirm Administered Dose 0.5 mg .ROUTE .STK-MED ONE Stop: 08/15/19 18:43 Hydromorphone HCl (Dilaudid) 0.5 mg IVPUSH ONETIME ONE Stop: 08/15/19 20:51 Last Admin: 08/15/19 20:59 Dose: 0.5 mg Hydromorphone HCl (Dilaudid) Confirm Administered Dose 0.5 mg .ROUTE .STK-MED ONE Stop: 08/15/19 21:00 Last Admin: 08/15/19 21:34 Dose: Not Given Hydromorphone HCl (Dilaudid) 0.5 mg IVPUSH Q3H PRN PRN Reason: Abdominal Pain Sodium Chloride (Normal Saline) 1,000 mls @ 150 mls/hr IV ASDIRECTED [facility] Last Admin: 08/08/19 06:02 Dose: 150 mls/hr Ceftriaxone Sodium 2 gm/ (Sodium Chloride) 100 mls @ 200 mls/hr IV ONETIME ONE Stop: 08/07/19 20:00 Last Admin: 08/07/19 19:47 Dose: Not Given Magnesium Sulfate 2 gm/ Premix 50 mls @ 25 mls/hr IV ONETIME ONE Stop: 08/07/19 21:42 Last Admin: 08/07/19 20:24 Dose: 25 mls/hr Ceftriaxone Sodium 2 gm/ (Sodium Chloride) 100 mls @ 200 mls/hr IV Q24H [facility] Stop: 08/07/19 20:15 Last Admin: 08/07/19 19:49 Dose: 200 mls/hr Sodium Chloride (Normal Saline) Confirm Administered Dose 100 mls @ as directed .ROUTE .STK-MED ONE Stop: 08/07/19 19:45 Last Admin: 08/07/19 19:51 Dose: Not Given Azithromycin 500 mg/ Sodium (Chloride) 250 mls @ 250 mls/hr IV Q24H [facility] Last Admin: 08/10/19 22:08 Dose: 250 mls/hr Ceftriaxone Sodium 2 gm/ (Sodium Chloride) 100 mls @ 200 mls/hr IV Q24H [facility] Last Admin: 08/10/19 21:25 Dose: 200 mls/hr Sodium Chloride (Normal Saline) 1,000 mls @ 75 mls/hr IV ASDIRECTED [facility] Sodium Phosphate 30 mmole/ (Sodium Chloride) 260 mls @ 130 mls/hr IV Q2H [facility] Stop: 08/10/19 15:59 Last Admin: 08/10/19 15:12 Dose: 130 mls/hr Magnesium Sulfate 2 gm/ Premix 50 mls @ 25 mls/hr IV ONETIME ONE Stop: 08/11/19 11:08 Last Admin: 08/11/19 09:38 Dose: 25 mls/hr Sodium Chloride (Normal Saline) 1,000 mls @ 75 mls/hr IV ASDIRECTED [facility] Last Admin: 08/12/19 09:24 Dose: 75 mls/hr Sodium Chloride (Normal Saline) Confirm Administered Dose 1,000 mls @ as directed .ROUTE .[facility] ONE Stop: 08/11/19 17:34 Last Admin: 08/11/19 17:43 Dose: Not Given Dextrose/Sodium Chloride (Dextrose 5%-Normal Saline) 1,000 mls @ 100 mls/hr IV ASDIRECTED [facility] Last Infusion: 08/13/19 12:35 Dose: 50 mls/hr Dextrose/Sodium Chloride (Dextrose 5%-Normal Saline) 1,000 mls @ 50 mls/hr IV ASDIRECTED [facility] Dextrose/Sodium Chloride (Dextrose 5%-Normal Saline) 1,000 mls @ 125 mls/hr IV ASDIRECTED [facility] Last Admin: 08/16/19 01:04 Dose: 125 mls/hr Lidocaine HCl (Xylocaine-Mpf 1%) Confirm Administered Dose 4 mls @ as directed .ROUTE .[facility]-MED ONE Stop: 08/15/19 14:43 Lactated Ringer's (Ringers, Lactated) Confirm Administered Dose 1,000 mls @ as directed .ROUTE .[facility] ONE Stop: 08/15/19 15:18 Lactated Ringer's (Ringers, Lactated) Confirm Administered Dose 1,000 mls @ as directed .ROUTE .[facility] ONE Stop: 08/15/19 15:18 Phenylephrine HCl 1 mg/ Sodium (Chloride) 10.1 mls @ 1 mls/sec IV TITRATE [facility]; Protocol Stop: 08/15/19 18:00 Lactated Ringer's (Ringers, Lactated) Confirm Administered Dose 1,000 mls @ as directed .ROUTE .[facility] ONE Stop: 08/15/19 15:57 Lactated Ringer's (Ringers, Lactated) Confirm Administered Dose 1,000 mls @ as directed .ROUTE .[facility] ONE Stop: 08/15/19 18:09 Magnesium Sulfate 2 gm/ Premix 50 mls @ 25 mls/hr IV ONETIME ONE Stop: 08/16/19 10:10 Last Admin: 08/16/19 08:45 Dose: Not Given Magnesium Sulfate 4 gm/ Premix 50 mls @ 12.5 mls/hr IV ONETIME ONE Stop: 08/16/19 12:28 Last Admin: 08/16/19 08:46 Dose: 12.5 mls/hr Dextrose/Sodium Chloride (Dextrose 5%-Normal Saline) 1,000 mls @ 100 mls/hr IV ASDIRECTED [facility] Stop: 08/16/19 13:00 Last Infusion: 08/16/19 12:20 Dose: 20 mls/hr Adjust Tpn Rate 720 mls @ 60 mls/hr .XX ONETIME ONE Stop: 08/17/19 12:59 Last Admin: 08/17/19 00:56 Dose: 60 mls/hr Influenza Virus Vaccine (Pharmacy To Dose - Influenza Vaccine) 1 each IM ONETIME ONE Stop: 08/07/19 22:46 Influenza Virus Vaccine (Fluzone High-Dose Syringe) 180 mcg IM .ONCE ONE Stop: 08/08/19 10:01 Iopamidol (Isovue-300 (61%)) 100 ml IVPUSH ONETIME ONE Stop: 08/11/19 16:42 Last Admin: 08/11/19 16:44 Dose: 100 ml Ipratropium [place] (Atrovent) 0.5 mg NEB Q4HRRT [facility] Last Admin: 08/11/19 13:29 Dose: 0.5 mg Ketamine HCl (Ketalar) Confirm Administered Dose 500 mg .ROUTE .STK-MED ONE Stop: 08/15/19 15:35 Ketorolac Tromethamine (Toradol) Confirm Administered Dose 30 mg .ROUTE .STK- MED ONE Stop: 08/15/19 18:40 Lidocaine HCl (Xylocaine 1%) Confirm Administered Dose 50 ml .ROUTE .STK-MED ONE Stop: 08/15/19 07:11 Last Admin: 08/15/19 15:09 Dose: 4.5 ml Lidocaine HCl (Xylocaine 1%) Confirm Administered Dose 50 ml .ROUTE .STK-MED ONE Stop: 08/15/19 11:28 Magnesium Hydroxide (Milk Of Magnesia) 30 ml PO ONETIME ONE Stop: 08/14/19 07:43 Last Admin: 08/14/19 08:58 Dose: 30 ml Methadone HCl (Methadone) 5 mg PO BID [facility] Last Admin: 08/15/19 21:37 Dose: Not Given Midazolam HCl (Versed 1 Mg/Ml) Confirm Administered Dose 2 mg .ROUTE .STK-MED ONE Stop: 08/15/19 12:15 Miscellaneous Medication (Phenylephrine 1 Mg/10 Ml-Ns) Confirm Administered Dose 1 mg IV .STK-MED ONE Stop: 08/15/19 15:05 Miscellaneous Medication (Phenylephrine 1 Mg/10 Ml-Ns) Confirm Administered Dose 1 mg IV .STK-MED ONE Stop: 08/15/19 16:18 Miscellaneous Medication (Phenylephrine 1 Mg/10 Ml-Ns) Confirm Administered Dose 1 mg IV .STK-MED ONE Stop: 08/15/19 17:47 Miscellaneous Medication (Phenylephrine 1 Mg/10 Ml-Ns) Confirm Administered Dose 1 mg IV .STK-MED ONE Stop: 08/15/19 18:34 Neostigmine Methylsulfate (Neostigmine Methylsulfate) Confirm Administered Dose 5 mg .ROUTE .STK-MED ONE Stop: 08/15/19 16:12 Ondansetron HCl (Zofran) 4 mg IVPUSH ONETIME ONE Stop: 08/07/19 16:51 Last Admin: 08/07/19 17:20 Dose: 4 mg Ondansetron HCl (Zofran) 4 mg IVPUSH ONETIME ONE Stop: 08/07/19 19:12 Last Admin: 08/07/19 19:51 Dose: 4 mg Ondansetron HCl (Zofran Odt) 4 mg PO Q6H PRN PRN Reason: nausea, able to take PO Last Admin: 08/13/19 09:44 Dose: 4 mg Ondansetron HCl (Zofran) 4 mg IV Q6H [facility] Last Admin: 08/08/19 06:03 Dose: Not Given Ondansetron HCl (Zofran) 4 mg IV Q6H [facility] Last Admin: 08/08/19 12:40 Dose: 4 mg Ondansetron HCl (Zofran) 4 mg IVPUSH Q8H PRN PRN Reason: Nausea/Vomiting Last Admin: 08/13/19 15:04 Dose: 4 mg Ondansetron HCl (Zofran) 4 mg IVPUSH ONETIME PRN PRN Reason: Nausea/Vomiting Stop: 08/15/19 18:00 Ondansetron HCl (Zofran) Confirm Administered Dose 4 mg .ROUTE .STK-MED ONE Stop: 08/15/19 16:13 Oseltamivir Phosphate (Tamiflu) 75 mg PO BID [facility] Stop: 08/12/19 09:01 Last Admin: 08/12/19 09:24 Dose: 75 mg Propofol (Diprivan 20 Ml) Confirm Administered Dose 200 mg .ROUTE .STK-MED ONE Stop: 08/15/19 12:15 Risperidone (Risperidal) 2 mg PO BEDTIME [facility] Last Admin: 08/15/19 21:36 Dose: Not Given Risperidone (Risperidal) 1 mg PO DAILY [facility] Last Admin: 08/15/19 10:49 Dose: Not Given Rocuronium [place] (Zemuron) Confirm Administered Dose 50 mg .ROUTE .STK-MED ONE Stop: 08/15/19 12:14 Rocuronium [place] (Zemuron) Confirm Administered Dose 50 mg .ROUTE .STK-MED ONE Stop: 08/15/19 16:10 Sodium Chloride (Saline Flush) 10 ml FLUSH ONETIME ONE Stop: 08/11/19 16:42 Last Admin: 08/11/19 16:46 Dose: 10 ml Trazodone HCl (Trazodone) 50 mg PO BEDTIME [facility] Last Admin: 08/15/19 21:50 Dose: Not Given - Exam Quality Assessment: DVT Prophylaxis General: Alert, Cooperative, No Acute Distress HEENT: Pupils Equal, Pupils Reactive, Mucous Membr. Moist/[place] Neck: Supple, Trachea Midline Lungs: Clear to Auscultation, Normal Respiratory Effort Cardiovascular: Regular Rate, Regular Rhythm GI/Abdominal Exam: Soft, No Distention, Tender (generalized appropriate ), Abnormal Bowel Sounds (hyperactive ) (Male) Exam: Deferred Extremities: Normal Inspection, Normal Range of Motion, Non-Tender, No Pedal Edema, Normal Capillary Refill Skin: Warm, Dry, Intact Neurological: No New Focal Deficit Psy/Mental Status: Alert Sepsis Event Note - Evaluation Sepsis Screening Result: No Definite Risk - Focused Exam Vital Signs: Vital Signs Temp Pulse Resp BP Pulse Ox Pulse Ox 08/17/19 06:50 92 L 08/17/19 05:16 98.1 F 88 18 138/58 L 93 L 08/16/19 21:57 98.2 F 90 18 128/55 L 93 L 08/16/19 21:21 92 L 08/16/19 21:17 98.1 F 86 20 125/67 92 L Date Exam was Performed: 08/17/19 Time Exam was Performed: 15:15 - Problem List & Annotations (1) Acute hypoxemic respiratory failure SNOMED Code(s): 137898023 Code(s): J96.01 - ACUTE RESPIRATORY FAILURE WITH HYPOXIA Status: Acute Priority: High Current Visit: Yes (2) Chronic pain SNOMED Code(s): 95200019 Code(s): G89.29 - OTHER CHRONIC PAIN Status: Chronic Priority: Medium Current Visit: Yes Qualifiers: Chronic pain type: other chronic pain Qualified Code(s): G89.29 - Other chronic pain (3) Hypoalbuminemia SNOMED Code(s): 424613323 Code(s): E88.09 - OT DISORDERS OF PLASMA-PROTEIN METABOLISM, NEC Status: Acute Priority: High Current Visit: Yes (4) Hypomagnesemia SNOMED Code(s): 765852699 Code(s): E83.42 - HYPOMAGNESEMIA Status: Resolved Priority: High Current Visit: Yes (5) Hyponatremia SNOMED Code(s): 19742082 Code(s): E87.1 - HYPO-OSMOLALITY AND HYPONATREMIA Status: Resolved Priority: High Current Visit: Yes (6) Hypophosphatemia SNOMED Code(s): 0852154 Code(s): E83.39 - OTHER DISORDERS OF PHOSPHORUS METABOLISM Status: Resolved Priority: High Current Visit: Yes (7) Intractable nausea and vomiting SNOMED Code(s): 478917492 Code(s): R11.2 - NAUSEA WITH VOMITING, UNSPECIFIED Status: Resolved Priority: High Current Visit: Yes (8) Leukocytosis SNOMED Code(s): 459113794, 158747846 Code(s): D72.829 - ELEVATED WHITE BLOOD CELL COUNT, UNSPECIFIED Status: Acute Priority: High Current Visit: Yes Qualifiers: Leukocytosis type: unspecified Qualified Code(s): D72.829 - Elevated white blood cell count, unspecified (9) Lung nodule SNOMED Code(s): 171590891 Code(s): R91.1 - SOLITARY PULMONARY NODULE Status: Acute Priority: High Current Visit: Yes (10) Macrocytosis without anemia SNOMED Code(s): 189294453 Code(s): D75.89 - OTHER SPECIFIED DISEASES OF BLOOD AND BLOOD-FORMING ORGANS Status: Acute Priority: High Current Visit: Yes (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 Code(s): 10484863, 651716258 Code(s): F11.20 - OPIOID DEPENDENCE, UNCOMPLICATED Status: Chronic Priority: Medium Current Visit: Yes (12) Pneumonia SNOMED Code(s): 850459787 Code(s): J18.9 - PNEUMONIA, UNSPECIFIED ORGANISM Status: Acute Priority: High Current Visit: Yes Qualifiers: Pneumonia type: due to unspecified organism Laterality: unspecified laterality Lung location: unspecified part of lung Qualified Code(s): J18.9 - Pneumonia, unspecified organism (13) Productive cough SNOMED Code(s): 76974691, 984730465, 513776825 Code(s): R05 - COUGH Status: Acute Priority: High Current Visit: Yes (14) Schizophrenia SNOMED Code(s): 03084607 Code(s): F20.9 - SCHIZOPHRENIA, UNSPECIFIED Status: Chronic Priority: Medium Current Visit: Yes Qualifiers: Schizophrenia type: unspecified Qualified Code(s): F20.9 - Schizophrenia, unspecified (15) Smoker SNOMED Code(s): 89139615 Code(s): F17.200 - NICOTINE DEPENDENCE, UNSPECIFIED, UNCOMPLICATED Status: Chronic Priority: Medium Current Visit: Yes (16) Tachycardia SNOMED Code(s): 1282660 Code(s): R00.0 - TACHYCARDIA, UNSPECIFIED Status: Resolved Priority: High Current Visit: Yes (17) Small bowel obstruction SNOMED Code(s): 390408321 Code(s): K56.609 - UNSP INTESTNL OBST, UNSP TO PARTIAL VERSUS COMPLETE OBST Status: Acute Priority: High Current Visit: Yes (18) Laparoscopic surgical procedure converted to open procedure SNOMED Code(s): 189450836 Code(s): Z53.31 - LAPAROSCOPIC SURGICAL PROCEDURE CONVERTED TO OPEN PROCEDURE Status: Acute Priority: High Current Visit: Yes (19) S/P laparotomy SNOMED Code(s): 530448757, 921069651, 152375962 Code(s): Z98.890 - OTHER SPECIFIED POSTPROCEDURAL STATES Status: Acute Priority: High Current Visit: Yes - Problem List Review Problem List Initiated/Reviewed/Updated: Yes - Plan Plan:: Postop day 2 Exploratory laparotomy, extensive lysis of adhesions, liver cyst excision, CVC placement. Patient is doing well. Postop ileus. Plan - Start TPN and lipids - Dr. Egan managing pain and TPN co-managed with dietary and pharmacy - IV fluids as ordered SBO -post exploratory open laparotomy with Dr. Egan Initially presented with intractable nausea and vomiting to ED Has been stable since admission, vomited x1 on 08/11/19 after drinking coffee Tender knob in RUQ noted on physical exam - not gallbladder, calcified mass on CT. Patient reports chronic since [address] scan Multiple adhesions and right upper quadrant mass excised. PLAN - NG tube to low intermittent suctioning -NmL output from 0400 to 1500 - Strict NPO - Monitor blood sugars Pneumonia -clinically resolved Acute hypoxemic respiratory failure -resolved Emphysema Chronic cough, acutely worsening in past week Associated with fever - none on floor CXR with infiltrate in posterior lobes [employer] evaluation - regular diet, thin liquids PLAN - Completed azithromycin, Tamiflu and Rocephin - Atrovent q4h PRN - Incentive spirometer/Acapella - ABG as needed - Goal SatO2 > 88% Lung nodule, right lung Active Smoker Smokes 2/4ppd > 40y Stable lung nodule noted on CT exam 08/11/19 PLAN - Nicotine patch Schizophrenia Home management with Trazodone, Risperdal and Benztropine PLAN -Patient is strict n.p.o. and on oral Resporal. Will transition to Haldol and Ativan. -Transition all meds to IV as able. Chronic pain Methadone maintenance therapy patient Denies any current pain PLAN -Pain management per Dr. Egan Muscle wasting Hypoalbuminemia Macrocytosis without anemia Significant muscle wasting Vitamin B12 level and folic acid level WNL Pre-albumin low Follow electrolytes closely PROPHYLAXIS DVT- compression stockings CODE STATUS: FULL CODE LOS >96 HRS due to exploratory laparotomy, resulting expected ileus, IV fluids/ nutrition.
--- NOTE | 2019-08-17 09:52 | PCM.SURGPN ---
- General Info Date of Service: 08/17/19 POD#: 2 Post-Op Diagnosis: Small bowel obstruction Functional Status: Reports: Pain Controlled, Urinating Pain Score: 4 - Review of Systems General: Reports: No Symptoms HEENT: Reports: No Symptoms Pulmonary: Reports: No Symptoms Cardiovascular: Reports: No Symptoms Gastrointestinal: Reports: Abdominal Pain Genitourinary: Reports: No Symptoms Musculoskeletal: Reports: No Symptoms Skin: Reports: No Symptoms - Patient Data Vitals - Most Recent: Last Vital Signs Temp 98.1 F 08/17/19 05:16 Pulse 88 08/17/19 05:16 Resp 18 08/17/19 05:16 BP 138/58 L 08/17/19 05:16 Pulse Ox 93 L 08/17/19 09:11 Orthostatic Blood Pressure [ 109/60 Standing] Orthostatic Blood Pressure [ 120/69 Sitting] Orthostatic Blood Pressure [ 120/79 Supine] Weight - Most Recent: 60.963 kg I&O - Last 24 Hours: Intake & Output 08/16/19 08/17/19 08/17/19 22:59 06:59 14:59 Intake Total 1110 923 Output Total 1015 1150 Balance 95 -227 Lab Results Last 24 Hrs: Laboratory Results - last 24 hr 08/16/19 08/16/19 08/17/19 Range/Units 12:22 18:31 00:53 WBC (4.23-9.07) K/mm3 RBC (4.63-6.08) M/mm3 Hgb (13.7-17.5) gm/dl Hct (40.1-51.0) % MCV (79.0-92.2) fl MCH (25.7-32.2) pg MCHC (32.2-35.5) g/dl RDW Std Deviation (35.1-43.9) fL Plt Count (163-337) K/mm3 MPV (9.4-12.3) fl Neut % (Auto) (34.0-67.9) % Lymph % (Auto) (21.8-53.1) % [place] % (Auto) (5.3-12.2) % Eos % (Auto) (0.8-7.0) Baso % (Auto) (0.1-1.2) % Neut # (Auto) (1.78-5.38) K/mm3 Lymph # (Auto) (1.32-3.57) K/mm3 [place] # (Auto) (0.30-0.82) K/mm3 Eos # (Auto) (0.04-0.54) K/mm3 Baso # (Auto) (0.01-0.08) K/mm3 Manual Slide Review Sodium (136-145) mEq/L Potassium (3.5-5.1) mEq/L Chloride (98-107) mEq/L Carbon Dioxide (21-32) mEq/L Anion Gap (5-15) BUN (7-18) mg/dL Creatinine (0.7-1.3) mg/dL Est Cr Clr Drug Dosing mL/min Estimated GFR (MDRD) (>60) mL/min BUN/Creatinine Ratio (14-18) Glucose (80-115) mg/dL POC Glucose 160 H 150 H 128 H (80-115) mg/dL Calcium (8.5-10.1) mg/dL Phosphorus (2.6-4.7) mg/dL Magnesium (1.8-2.4) mg/dl Total Bilirubin (0.2-1.0) mg/dL AST (15-37) U/L ALT (16-63) U/L Alkaline Phosphatase (46-116) U/L Total Protein (6.4-8.2) g/dl Albumin (3.4-5.0) g/dl Globulin gm/dL Albumin/Globulin Ratio (1-2) 08/17/19 08/17/19 Range/Units 05:03 05:03 WBC 11.32 H (4.23-9.07) K/mm3 RBC 3.36 L (4.63-6.08) M/mm3 Hgb 10.6 L (13.7-17.5) gm/dl Hct 33.5 L (40.1-51.0) % MCV 99.7 H (79.0-92.2) fl MCH 31.5 (25.7-32.2) pg MCHC 31.6 L (32.2-35.5) g/dl RDW Std Deviation 45.5 H (35.1-43.9) fL Plt Count 307 (163-337) K/mm3 MPV 9.3 L (9.4-12.3) fl Neut % (Auto) 85.8 H (34.0-67.9) % Lymph % (Auto) 7.2 L (21.8-53.1) % [place] % (Auto) 6.2 (5.3-12.2) % Eos % (Auto) 0.4 L (0.8-7.0) Baso % (Auto) 0.1 (0.1-1.2) % Neut # (Auto) 9.72 H (1.78-5.38) K/mm3 Lymph # (Auto) 0.82 L (1.32-3.57) K/mm3 [place] # (Auto) 0.70 (0.30-0.82) K/mm3 Eos # (Auto) 0.04 (0.04-0.54) K/mm3 Baso # (Auto) 0.01 (0.01-0.08) K/mm3 Manual Slide Review Normal smear Sodium 141 (136-145) mEq/L Potassium 3.7 (3.5-5.1) mEq/L Chloride 106 (98-107) mEq/L Carbon Dioxide 28 (21-32) mEq/L Anion Gap 10.7 (5-15) BUN 14 (7-18) mg/dL Creatinine 0.7 (0.7-1.3) mg/dL Est Cr Clr Drug Dosing 84.67 mL/min Estimated GFR (MDRD) > 60 (>60) mL/min BUN/Creatinine Ratio 20.0 H (14-18) Glucose 132 H (80-115) mg/dL POC Glucose (80-115) mg/dL Calcium 7.7 L (8.5-10.1) mg/dL Phosphorus 2.9 (2.6-4.7) mg/dL Magnesium 2.1 (1.8-2.4) mg/dl Total Bilirubin 0.4 (0.2-1.0) mg/dL AST 17 (15-37) U/L ALT 26 (16-63) U/L Alkaline Phosphatase 44 L (46-116) U/L Total Protein 5.0 L (6.4-8.2) g/dl Albumin 2.2 L (3.4-5.0) g/dl Globulin 2.8 gm/dL Albumin/Globulin Ratio 0.8 L (1-2) Med Orders - Current: Current Medications Acetaminophen (Tylenol) 650 mg PO Q4H PRN PRN Reason: Pain (Mild 1-3)/fever Last Admin: 08/13/19 09:43 Dose: 650 mg Albuterol/Ipratropium (Duoneb 3.0-0.5 Mg/3 Ml) 3 ml NEB QIDRT [facility] Last Admin: 08/17/19 09:10 Dose: 3 ml Famotidine (Pepcid) 20 mg IVPUSH BEDTIME [facility] Last Admin: 08/16/19 21:57 Dose: 20 mg Haloperidol Lactate (Haldol) 5 mg IVPUSH BEDTIME [facility] Last Admin: 08/16/19 21:57 Dose: 5 mg Haloperidol Lactate (Haldol) 2 mg IVPUSH 0600,1400 [facility] Last Admin: 08/17/19 06:03 Dose: 2 mg Hydromorphone HCl (Dilaudid) 1 mg IVPUSH Q3H PRN PRN Reason: Pain Last Admin: 08/16/19 18:55 Dose: 1 mg Dextrose/Sodium Chloride (Dextrose 5%-Normal Saline) 1,000 mls @ 20 mls/hr IV ASDIRECTED [facility] Last Admin: 08/17/19 06:33 Dose: 20 mls/hr Fat Emulsion Intravenous (Intralipid 20%) 500 mls @ 62.5 mls/hr IV MoWeFr [facility] Multivitamins/Minerals 10 ml/Chromium/Copper/Manganese/Zinc 1 ml/ Amino Ac/ Electrol/Dextrose/Calcium 1,011 mls @ 60 mls/hr IV TITRATE [facility] Stop: 08/18/19 01:50 Last Admin: 08/17/19 08:52 Dose: 60 mls/hr Adjust Tpn Rate 720 mls @ 75 mls/hr .XX ONETIME ONE Stop: 08/17/19 22:35 Ketorolac Tromethamine (Toradol) 15 mg IVPUSH Q6H PRN PRN Reason: Pain Stop: 08/18/19 00:31 Last Admin: 08/17/19 06:03 Dose: 15 mg Lorazepam (Ativan) 1 mg IVPUSH Q2H PRN PRN Reason: Anxiety Last Admin: 08/16/19 22:14 Dose: 1 mg Nicotine (Habitrol) 21 mg TRDERM DAILY [facility] Last Admin: 08/17/19 08:33 Dose: 21 mg Benztropine 2mg/2ml (Vial) 0 each IVPUSH BEDTIME [facility] Last Admin: 08/16/19 22:01 Dose: 1 each Ondansetron HCl (Zofran) 4 mg IVPUSH Q4H PRN PRN Reason: Nausea/Vomiting Last Admin: 08/13/19 21:01 Dose: 4 mg Pharmacy Consult (Consult To Pharmacy) 0 each .XX DAILY PRN PRN Reason: TPN MONITORING Sodium Chloride (Saline Flush) 10 ml FLUSH ASDIRECTED PRN PRN Reason: Keep Vein Open Last Admin: 08/11/19 16:44 Dose: 10 ml Discontinued Medications Albuterol (Proventil Neb Soln) 2.5 mg NEB ONETIME PRN PRN Reason: bronchodilation Stop: 08/15/19 18:00 Azithromycin (Zithromax) 250 mg PO BEDTIME [facility] Last Admin: 08/11/19 21:06 Dose: 250 mg Benzonatate (Tessalon Perles) 100 mg PO BID [facility] Last Admin: 08/15/19 21:36 Dose: Not Given Benztropine Mesylate (Cogentin) 1 mg PO BEDTIME [facility] Last Admin: 08/15/19 21:37 Dose: Not Given Benztropine Mesylate (Cogentin) 1 mg IVPUSH BEDTIME [facility] Cefazolin Sodium (Ancef) Confirm Administered Dose 2 gm .ROUTE .STK-MED ONE Stop: 08/15/19 15:23 Cefazolin Sodium (Ancef) Confirm Administered Dose 2 gm .ROUTE .STK-MED ONE Stop: 08/15/19 18:13 Cefdinir (Omnicef) 300 mg PO BID [facility] Last Admin: 08/14/19 08:58 Dose: 300 mg Ceftriaxone Sodium (Rocephin) Confirm Administered Dose 2 gm IV .STK-MED ONE Stop: 08/07/19 19:45 Last Admin: 08/07/19 19:51 Dose: Not Given Diatrizoate Meglum/Diatrizoate Sod (Gastrografin 37%) 90 ml PO ONETIME ONE Stop: 08/11/19 16:42 Last Admin: 08/11/19 16:43 Dose: 90 ml Ephedrine Sulfate (Ephedrine Sulfate) 5 mg IVPUSH ASDIRECTED PRN PRN Reason: Hypotension Stop: 08/15/19 18:00 Fentanyl (Sublimaze) Confirm Administered Dose 250 mcg .ROUTE .STK-MED ONE Stop: 08/15/19 12:16 Fentanyl (Sublimaze) 50 mcg IVPUSH Q5M PRN PRN Reason: Pain Stop: 08/15/19 18:00 Fentanyl (Sublimaze) Confirm Administered Dose 100 mcg .ROUTE .STK-MED ONE Stop: 08/15/19 17:11 Glycopyrrolate () Confirm Administered Dose 1 mg .ROUTE .STK-MED ONE Stop: 08/15/19 16:12 Guaifenesin (Mucinex) 600 mg PO BID [facility] Last Admin: 08/15/19 21:37 Dose: Not Given Guaifenesin (Mucinex) 600 mg PO BID [facility] Last Admin: 08/08/19 12:51 Dose: Not Given Haloperidol Lactate (Haldol) 5 mg IVPUSH BEDTIME [facility] Last Admin: 08/15/19 21:51 Dose: 5 mg Haloperidol Lactate (Haldol) 5 mg IV ONETIME PRN PRN Reason: Other Stop: 08/16/19 08:00 Haloperidol Lactate (Haldol) 5 mg IVPUSH Q8H [facility] Last Admin: 08/16/19 09:59 Dose: Not Given Haloperidol Lactate (Haldol) 2 mg IVPUSH ONETIME ONE Stop: 08/16/19 09:01 Last Admin: 08/16/19 09:57 Dose: 2 mg Hydromorphone HCl (Dilaudid) Confirm Administered Dose 0.5 mg .ROUTE .STK-MED ONE Stop: 08/15/19 15:22 Hydromorphone HCl (Dilaudid) 0.5 mg IVPUSH Q15M PRN PRN Reason: Pain (severe 7-10) Stop: 08/15/19 18:00 Hydromorphone HCl (Dilaudid) Confirm Administered Dose 0.5 mg .ROUTE .STK-MED ONE Stop: 08/15/19 16:18 Hydromorphone HCl (Dilaudid) Confirm Administered Dose 0.5 mg .ROUTE .STK-MED ONE Stop: 08/15/19 18:43 Hydromorphone HCl (Dilaudid) 0.5 mg IVPUSH ONETIME ONE Stop: 08/15/19 20:51 Last Admin: 08/15/19 20:59 Dose: 0.5 mg Hydromorphone HCl (Dilaudid) Confirm Administered Dose 0.5 mg .ROUTE .STK-MED ONE Stop: 08/15/19 21:00 Last Admin: 08/15/19 21:34 Dose: Not Given Hydromorphone HCl (Dilaudid) 0.5 mg IVPUSH Q3H PRN PRN Reason: Abdominal Pain Sodium Chloride (Normal Saline) 1,000 mls @ 150 mls/hr IV ASDIRECTED [facility] Last Admin: 08/08/19 06:02 Dose: 150 mls/hr Ceftriaxone Sodium 2 gm/ (Sodium Chloride) 100 mls @ 200 mls/hr IV ONETIME ONE Stop: 08/07/19 20:00 Last Admin: 08/07/19 19:47 Dose: Not Given Magnesium Sulfate 2 gm/ Premix 50 mls @ 25 mls/hr IV ONETIME ONE Stop: 08/07/19 21:42 Last Admin: 08/07/19 20:24 Dose: 25 mls/hr Ceftriaxone Sodium 2 gm/ (Sodium Chloride) 100 mls @ 200 mls/hr IV Q24H [facility] Stop: 08/07/19 20:15 Last Admin: 08/07/19 19:49 Dose: 200 mls/hr Sodium Chloride (Normal Saline) Confirm Administered Dose 100 mls @ as directed .ROUTE .STK-MED ONE Stop: 08/07/19 19:45 Last Admin: 08/07/19 19:51 Dose: Not Given Azithromycin 500 mg/ Sodium (Chloride) 250 mls @ 250 mls/hr IV Q24H [facility] Last Admin: 08/10/19 22:08 Dose: 250 mls/hr Ceftriaxone Sodium 2 gm/ (Sodium Chloride) 100 mls @ 200 mls/hr IV Q24H [facility] Last Admin: 08/10/19 21:25 Dose: 200 mls/hr Sodium Chloride (Normal Saline) 1,000 mls @ 75 mls/hr IV ASDIRECTED [facility] Sodium Phosphate 30 mmole/ (Sodium Chloride) 260 mls @ 130 mls/hr IV Q2H [facility] Stop: 08/10/19 15:59 Last Admin: 08/10/19 15:12 Dose: 130 mls/hr Magnesium Sulfate 2 gm/ Premix 50 mls @ 25 mls/hr IV ONETIME ONE Stop: 08/11/19 11:08 Last Admin: 08/11/19 09:38 Dose: 25 mls/hr Sodium Chloride (Normal Saline) 1,000 mls @ 75 mls/hr IV ASDIRECTED [facility] Last Admin: 08/12/19 09:24 Dose: 75 mls/hr Sodium Chloride (Normal Saline) Confirm Administered Dose 1,000 mls @ as directed .ROUTE .STK-MED ONE Stop: 08/11/19 17:34 Last Admin: 08/11/19 17:43 Dose: Not Given Dextrose/Sodium Chloride (Dextrose 5%-Normal Saline) 1,000 mls @ 100 mls/hr IV ASDIRECTED [facility] Last Infusion: 08/13/19 12:35 Dose: 50 mls/hr Dextrose/Sodium Chloride (Dextrose 5%-Normal Saline) 1,000 mls @ 50 mls/hr IV ASDIRECTED [facility] Dextrose/Sodium Chloride (Dextrose 5%-Normal Saline) 1,000 mls @ 125 mls/hr IV ASDIRECTED [facility] Last Admin: 08/16/19 01:04 Dose: 125 mls/hr Lidocaine HCl (Xylocaine-Mpf 1%) Confirm Administered Dose 4 mls @ as directed .ROUTE .ST-MED ONE Stop: 08/15/19 14:43 Lactated Ringer's (Ringers, Lactated) Confirm Administered Dose 1,000 mls @ as directed .ROUTE .ST-MED ONE Stop: 08/15/19 15:18 Lactated Ringer's (Ringers, Lactated) Confirm Administered Dose 1,000 mls @ as directed .ROUTE .[facility]-MED ONE Stop: 08/15/19 15:18 Phenylephrine HCl 1 mg/ Sodium (Chloride) 10.1 mls @ 1 mls/sec IV TITRATE [facility]; Protocol Stop: 08/15/19 18:00 Lactated Ringer's (Ringers, Lactated) Confirm Administered Dose 1,000 mls @ as directed .ROUTE .[facility]-MED ONE Stop: 08/15/19 15:57 Lactated Ringer's (Ringers, Lactated) Confirm Administered Dose 1,000 mls @ as directed .ROUTE .ST-MED ONE Stop: 08/15/19 18:09 Magnesium Sulfate 2 gm/ Premix 50 mls @ 25 mls/hr IV ONETIME ONE Stop: 08/16/19 10:10 Last Admin: 08/16/19 08:45 Dose: Not Given Magnesium Sulfate 4 gm/ Premix 50 mls @ 12.5 mls/hr IV ONETIME ONE Stop: 08/16/19 12:28 Last Admin: 08/16/19 08:46 Dose: 12.5 mls/hr Dextrose/Sodium Chloride (Dextrose 5%-Normal Saline) 1,000 mls @ 100 mls/hr IV ASDIRECTED [facility] Stop: 08/16/19 13:00 Last Infusion: 08/16/19 12:20 Dose: 20 mls/hr Multivitamins/Minerals 10 ml/Chromium/Copper/Manganese/Zinc 1 ml/ Amino Ac/ Electrol/Dextrose/Calcium 1,011 mls @ 45 mls/hr IV ONETIME ONE Stop: 08/17/19 11:27 Last Admin: 08/16/19 13:15 Dose: 45 mls/hr Adjust Tpn Rate 720 mls @ 60 mls/hr .XX ONETIME ONE Stop: 08/17/19 12:59 Last Admin: 08/17/19 00:56 Dose: 60 mls/hr Influenza Virus Vaccine (Pharmacy To Dose - Influenza Vaccine) 1 each IM ONETIME ONE Stop: 08/07/19 22:46 Influenza Virus Vaccine (Fluzone High-Dose Syringe) 180 mcg IM .ONCE ONE Stop: 08/08/19 10:01 Iopamidol (Isovue-300 (61%)) 100 ml IVPUSH ONETIME ONE Stop: 08/11/19 16:42 Last Admin: 08/11/19 16:44 Dose: 100 ml Ipratropium [place] (Atrovent) 0.5 mg NEB Q4HRRT [facility] Last Admin: 08/11/19 13:29 Dose: 0.5 mg Ketamine HCl (Ketalar) Confirm Administered Dose 500 mg .ROUTE .STK-MED ONE Stop: 08/15/19 15:35 Ketorolac Tromethamine (Toradol) Confirm Administered Dose 30 mg .ROUTE .STK- MED ONE Stop: 08/15/19 18:40 Lidocaine HCl (Xylocaine 1%) Confirm Administered Dose 50 ml .ROUTE .STK-MED ONE Stop: 08/15/19 07:11 Last Admin: 08/15/19 15:09 Dose: 4.5 ml Lidocaine HCl (Xylocaine 1%) Confirm Administered Dose 50 ml .ROUTE .STK-MED ONE Stop: 08/15/19 11:28 Magnesium Hydroxide (Milk Of Magnesia) 30 ml PO ONETIME ONE Stop: 08/14/19 07:43 Last Admin: 08/14/19 08:58 Dose: 30 ml Methadone HCl (Methadone) 5 mg PO BID [facility] Last Admin: 08/15/19 21:37 Dose: Not Given Midazolam HCl (Versed 1 Mg/Ml) Confirm Administered Dose 2 mg .ROUTE .STK-MED ONE Stop: 08/15/19 12:15 Miscellaneous Medication (Phenylephrine 1 Mg/10 Ml-Ns) Confirm Administered Dose 1 mg IV .STK-MED ONE Stop: 08/15/19 15:05 Miscellaneous Medication (Phenylephrine 1 Mg/10 Ml-Ns) Confirm Administered Dose 1 mg IV .STK-MED ONE Stop: 08/15/19 16:18 Miscellaneous Medication (Phenylephrine 1 Mg/10 Ml-Ns) Confirm Administered Dose 1 mg IV .STK-MED ONE Stop: 08/15/19 17:47 Miscellaneous Medication (Phenylephrine 1 Mg/10 Ml-Ns) Confirm Administered Dose 1 mg IV .STK-MED ONE Stop: 08/15/19 18:34 Neostigmine Methylsulfate (Neostigmine Methylsulfate) Confirm Administered Dose 5 mg .ROUTE .STK-MED ONE Stop: 08/15/19 16:12 Ondansetron HCl (Zofran) 4 mg IVPUSH ONETIME ONE Stop: 08/07/19 16:51 Last Admin: 08/07/19 17:20 Dose: 4 mg Ondansetron HCl (Zofran) 4 mg IVPUSH ONETIME ONE Stop: 08/07/19 19:12 Last Admin: 08/07/19 19:51 Dose: 4 mg Ondansetron HCl (Zofran Odt) 4 mg PO Q6H PRN PRN Reason: nausea, able to take PO Last Admin: 08/13/19 09:44 Dose: 4 mg Ondansetron HCl (Zofran) 4 mg IV Q6H [facility] Last Admin: 08/08/19 06:03 Dose: Not Given Ondansetron HCl (Zofran) 4 mg IV Q6H [facility] Last Admin: 08/08/19 12:40 Dose: 4 mg Ondansetron HCl (Zofran) 4 mg IVPUSH Q8H PRN PRN Reason: Nausea/Vomiting Last Admin: 08/13/19 15:04 Dose: 4 mg Ondansetron HCl (Zofran) 4 mg IVPUSH ONETIME PRN PRN Reason: Nausea/Vomiting Stop: 08/15/19 18:00 Ondansetron HCl (Zofran) Confirm Administered Dose 4 mg .ROUTE .STK-MED ONE Stop: 08/15/19 16:13 Oseltamivir Phosphate (Tamiflu) 75 mg PO BID [facility] Stop: 08/12/19 09:01 Last Admin: 08/12/19 09:24 Dose: 75 mg Propofol (Diprivan 20 Ml) Confirm Administered Dose 200 mg .ROUTE .STK-MED ONE Stop: 08/15/19 12:15 Risperidone (Risperidal) 2 mg PO BEDTIME [facility] Last Admin: 08/15/19 21:36 Dose: Not Given Risperidone (Risperidal) 1 mg PO DAILY [facility] Last Admin: 08/15/19 10:49 Dose: Not Given Rocuronium [place] (Zemuron) Confirm Administered Dose 50 mg .ROUTE .STK-MED ONE Stop: 08/15/19 12:14 Rocuronium [place] (Zemuron) Confirm Administered Dose 50 mg .ROUTE .STK-MED ONE Stop: 08/15/19 16:10 Sodium Chloride (Saline Flush) 10 ml FLUSH ONETIME ONE Stop: 08/11/19 16:42 Last Admin: 08/11/19 16:46 Dose: 10 ml Trazodone HCl (Trazodone) 50 mg PO BEDTIME [facility] Last Admin: 08/15/19 21:50 Dose: Not Given - Exam General: Alert, Oriented, Cooperative Lungs: Clear to Auscultation, Normal Respiratory Effort Cardiovascular: Regular Rate, Regular Rhythm, No Murmurs GI/Abdominal Exam: Soft, No Organomegaly, No Distention, Tender (appropriately) Extremities: Normal Inspection Skin: Warm, Dry, Intact Sepsis Event Note - Evaluation Sepsis Screening Result: No Definite Risk - Focused Exam Vital Signs: Vital Signs Temp Pulse Resp BP Pulse Ox Pulse Ox 08/17/19 09:11 93 L 08/17/19 06:50 92 L 08/17/19 05:16 98.1 F 88 18 138/58 L 93 L 03/24/20 21:57 98.2 F 90 18 128/55 L 93 L Date Exam was Performed: 08/17/19 Time Exam was Performed: 09:47 - Problem List Review Problem List Initiated/Reviewed/Updated: No - My Orders Last 24 Hours: Active Orders 24 hr Category Date Time Status POC Glucose [Blood Glucose Check, Bedside] [RC] Q6HR Care 08/16/19 12:00 Active Consult to Occupational Therapy [OT Evaluation and Cons 08/17/19 08:00 Active Treatment] [CONS] Routine Consult to Physical Therapy [PT Evaluation and Cons 08/17/19 08:00 Active Treatment] [CONS] Routine PT Evaluation and Treatment [CONS] Routine Cons 08/16/19 18:12 Active CBC WITH AUTO DIFF [HEME] AM Lab 08/18/19 05:11 Ordered CMP [COMPREHENSIVE METABOLIC PN,CMP] [CHEM] AM Lab 08/18/19 05:11 Ordered MAGNESIUM [CHEM] AM Lab 08/18/19 05:11 Ordered PHOSPHORUS [CHEM] AM Lab 08/18/19 05:11 Ordered Dextrose 5%-0.9% NaCl [Dextrose 5%-Normal Saline] 1,000 Med 08/16/19 12:00 Active ml IV ASDIRECTED Famotidine [Pepcid] Med 08/16/19 21:00 Active 20 mg IVPUSH BEDTIME Fat Emulsion [Intralipid 20%] 500 ml Med 08/17/19 12:00 Active IV MoWeFr Haloperidol Lactate [Haldol] Med 08/16/19 14:00 Active 2 mg IVPUSH 0600,1400 Haloperidol Lactate [Haldol] Med 08/16/19 21:00 Active 5 mg IVPUSH BEDTIME [facility]VI, Adult with Vitamin K [Infuvite Adult] 10 ml Med 08/17/19 09:00 Active Chromium/Copper/Pelon/Zinc [Multitrace-4 Concentrate] 1 ml AA 5%/Calcium/D20W/Lytes [Clinimix E 5] 1,000 ml IV TITRATE Non-Formulary Medication [NF Drug] Med 08/16/19 21:00 Active 0 each IVPUSH BEDTIME Non-Formulary Medication [NF Drug] 1 each Med 08/17/19 13:00 Active .XX ONETIME Pharmacy Consult [Consult to Pharmacy] Med 08/16/19 13:19 Active 0 each .XX DAILY PRN Medication Orders Acetaminophen (Tylenol) 650 mg PO Q4H PRN PRN Reason: Pain (Mild 1-3)/fever Last Admin: 08/13/19 09:43 Dose: 650 mg Albuterol/Ipratropium (Duoneb 3.0-0.5 Mg/3 Ml) 3 ml NEB QIDRT [facility] Last Admin: 08/17/19 09:10 Dose: 3 ml Admin: 08/17/19 06:50 Dose: 3 ml Admin: 08/16/19 21:21 Dose: 3 ml Admin: 08/16/19 17:09 Dose: 3 ml Admin: 08/16/19 09:00 Dose: 3 ml Admin: 08/16/19 05:18 Dose: 3 ml Admin: 08/15/19 22:01 Dose: 3 ml Admin: 08/15/19 16:49 Dose: Not Given Admin: 08/15/19 09:16 Dose: 3 ml Admin: 08/15/19 06:59 Dose: 3 ml Admin: 08/14/19 20:36 Dose: Not Given Admin: 08/14/19 16:20 Dose: 3 ml Admin: 08/14/19 09:08 Dose: 3 ml Admin: 08/14/19 06:51 Dose: Not Given Admin: 08/13/19 20:33 Dose: Not Given Admin: 08/13/19 16:14 Dose: Not Given Admin: 08/13/19 08:59 Dose: 3 ml Admin: 08/13/19 06:47 Dose: 3 ml Admin: 08/12/19 20:25 Dose: 3 ml Admin: 08/12/19 16:12 Dose: 3 ml Admin: 08/12/19 09:17 Dose: 3 ml Admin: 08/12/19 06:06 Dose: 3 ml Admin: 08/11/19 20:27 Dose: 3 ml Admin: 08/11/19 15:59 Dose: 3 ml Famotidine (Pepcid) 20 mg IVPUSH BEDTIME [facility] Last Admin: 08/16/19 21:57 Dose: 20 mg Haloperidol Lactate (Haldol) 5 mg IVPUSH BEDTIME [facility] Last Admin: 08/16/19 21:57 Dose: 5 mg Haloperidol Lactate (Haldol) 2 mg IVPUSH 0600,1400 [facility] Last Admin: 08/17/19 06:03 Dose: 2 mg Admin: 08/16/19 14:36 Dose: Not Given Hydromorphone HCl (Dilaudid) 1 mg IVPUSH Q3H PRN PRN Reason: Pain Last Admin: 08/16/19 18:55 Dose: 1 mg Admin: 08/16/19 15:10 Dose: 1 mg Admin: 08/16/19 08:15 Dose: 1 mg Admin: 08/16/19 00:57 Dose: 1 mg Admin: 08/15/19 21:57 Dose: 1 mg Dextrose/Sodium Chloride (Dextrose 5%-Normal Saline) 1,000 mls @ 20 mls/hr IV ASDIRECTED [facility] Last Admin: 08/17/19 06:33 Dose: 20 mls/hr Fat Emulsion Intravenous (Intralipid 20%) 500 mls @ 62.5 mls/hr IV MoWeFr [facility] Multivitamins/Minerals 10 ml/Chromium/Copper/Manganese/Zinc 1 ml/ Amino Ac/ Electrol/Dextrose/Calcium 1,011 mls @ 60 mls/hr IV TITRATE [facility] Stop: 08/18/19 01:50 Last Admin: 08/17/19 08:52 Dose: 60 mls/hr Adjust Tpn Rate 720 mls @ 75 mls/hr .XX ONETIME ONE Stop: 08/17/19 22:35 Ketorolac Tromethamine (Toradol) 15 mg IVPUSH Q6H PRN PRN Reason: Pain Stop: 08/18/19 00:31 Last Admin: 08/17/19 06:03 Dose: 15 mg Admin: 08/16/19 21:57 Dose: 15 mg Admin: 08/16/19 10:26 Dose: 15 mg Lorazepam (Ativan) 1 mg IVPUSH Q2H PRN PRN Reason: Anxiety Last Admin: 08/16/19 22:14 Dose: 1 mg Admin: 08/16/19 10:26 Dose: 1 mg Admin: 08/16/19 00:58 Dose: 1 mg Nicotine (Habitrol) 21 mg TRDERM DAILY [facility] Last Admin: 08/17/19 08:33 Dose: 21 mg Admin: 08/16/19 09:57 Dose: 21 mg Admin: 08/15/19 10:48 Dose: Not Given Admin: 08/14/19 09:02 Dose: Not Given Admin: 08/13/19 08:47 Dose: 21 mg Admin: 08/12/19 09:24 Dose: 21 mg Admin: 08/11/19 09:39 Dose: 21 mg Admin: 08/10/19 09:23 Dose: 21 mg Admin: 08/09/19 09:23 Dose: 21 mg Admin: 08/08/19 09:45 Dose: 21 mg Benztropine 2mg/2ml (Vial) 0 each IVPUSH BEDTIME [facility] Last Admin: 08/16/19 22:01 Dose: 1 each Ondansetron HCl (Zofran) 4 mg IVPUSH Q4H PRN PRN Reason: Nausea/Vomiting Last Admin: 08/13/19 21:01 Dose: 4 mg Pharmacy Consult (Consult To Pharmacy) 0 each .XX DAILY PRN PRN Reason: TPN MONITORING Sodium Chloride (Saline Flush) 10 ml FLUSH ASDIRECTED PRN PRN Reason: Keep Vein Open Last Admin: 08/11/19 16:44 Dose: 10 ml Admin: 08/11/19 16:43 Dose: 10 ml Admin: 08/07/19 17:21 Dose: 10 ml - Assessment Assessment (Free Text/Narrative):: POD2 s/p ex lap, SANTANA, RUQ mass excision for SBO. NGT replaced overnight after falling out. Stable. - Plan Plan (Free Text/Narrative):: - Contnue NPO, NGT, TPN - Ambulate with PT/OT - Cont Dilaudid + Toradol for pain - Continue drains.
[2019-08-17] MEDS ORDERED: Albuterol/Ipratropium 3.0-0.5 MG/3 ML Neb Soln NEB PRN (10:38)
[2019-08-17] MEDS: Fat Emulsion 500 ML IV SCH (12:30)
[2019-08-17] MEDS: Sodium Chloride 0.9% 1,000 ML IV SCH (12:31)
[2019-08-17] MEDS: HYDROmorphone 1 MG/ML Syringe IVPUSH PRN (14:49)
[2019-08-17] MEDS: Ondansetron 4 MG/2 ML SDV IVPUSH PRN (15:51)
[2019-08-17] MEDS: Famotidine 20 MG/2 ML SDV IVPUSH SCH (20:33)
[2019-08-17] MEDS: BENZTROPINE 2MG/2ML VIAL IVPUSH SCH (20:35)
[2019-08-18] MEDS: AA 5%/Calcium/D20W/Lytes 1,000 ML IV SCH ×2 (00:11)
[2019-08-18] MEDS: Ondansetron 4 MG/2 ML SDV IVPUSH PRN ×3 (00:20→12:30)
[2019-08-18] MEDS: Haloperidol Lactate 5 MG/ML SDV IVPUSH SCH ×3 (06:55→20:36)
[2019-08-18] MEDS: Nicotine 21 MG/24 Hr Patch TRDERM SCH (08:08)
[2019-08-18] MEDS: Heparin Sodium 5,000 Units/ML Vial SUBCUT SCH ×2 (08:11→16:17)
--- NOTE | 2019-08-18 08:12 | PCM.PN ---
- General Info Date of Service: 08/18/19 Admission Dx/Problem (Free Text): Admission Diagnosis/Problem Admission Diagnosis/Problem Pneumonia involving left lung Functional Status: Reports: Ambulating, Urinating. Denies: Tolerating Diet ( Strict NPO), New Symptoms - Review of Systems General: Reports: Weakness, Fatigue, Malaise. Denies: Fever, Chills HEENT: Denies: Headaches, Sore Throat Pulmonary: Denies: Shortness of Breath, Cough, Sputum, Wheezing Cardiovascular: Denies: Chest Pain, Palpitations, Dyspnea on Exertion, Edema Gastrointestinal: Reports: Abdominal Pain, Flatus, Nausea, Other (Belching ). Denies: Vomiting Genitourinary: Denies: Pain Musculoskeletal: Reports: No Symptoms Skin: Reports: No Symptoms. Denies: Cyanosis Neurological: Reports: No Symptoms Psychiatric: Reports: No Symptoms, Other (Baseline schizophrenia) - Patient Data Vitals - Most Recent: Last Vital Signs Temp 99.5 F 08/18/19 08:00 Pulse 88 08/18/19 08:00 Resp 16 08/18/19 08:00 BP 101/53 L 08/18/19 08:00 Pulse Ox 91 L 08/18/19 08:00 Orthostatic Blood Pressure [ 109/60 Standing] Orthostatic Blood Pressure [ 120/69 Sitting] Orthostatic Blood Pressure [ 120/79 Supine] Weight - Most Recent: 131 lb 12.8 oz I&O - Last 24 Hours: Intake & Output 08/17/19 08/18/19 08/18/19 22:59 06:59 14:59 Intake Total 1163 1480 Output Total 995 960 Balance 168 520 Lab Results Last 24 Hours: Laboratory Results - last 24 hr 08/14/19 08/17/19 08/17/19 Range/Units 10:20 06:56 13:00 WBC (4.23-9.07) K/mm3 RBC (4.63-6.08) M/mm3 Hgb (13.7-17.5) gm/dl Hct (40.1-51.0) % MCV (79.0-92.2) fl MCH (25.7-32.2) pg MCHC (32.2-35.5) g/dl RDW Std Deviation (35.1-43.9) fL Plt Count (163-337) K/mm3 MPV (9.4-12.3) fl Neut % (Auto) (34.0-67.9) % Lymph % (Auto) (21.8-53.1) % Barber % (Auto) (5.3-12.2) % Eos % (Auto) (0.8-7.0) Baso % (Auto) (0.1-1.2) % Neut # (Auto) (1.78-5.38) K/mm3 Lymph # (Auto) (1.32-3.57) K/mm3 Barber # (Auto) (0.30-0.82) K/mm3 Eos # (Auto) (0.04-0.54) K/mm3 Baso # (Auto) (0.01-0.08) K/mm3 Manual Slide Review Sodium (136-145) mEq/L Potassium (3.5-5.1) mEq/L Chloride (98-107) mEq/L Carbon Dioxide (21-32) mEq/L Anion Gap (5-15) BUN (7-18) mg/dL Creatinine (0.7-1.3) mg/dL Est Cr Clr Drug Dosing mL/min Estimated GFR (MDRD) (>60) mL/min BUN/Creatinine Ratio (14-18) Glucose (80-115) mg/dL POC Glucose 135 H 153 H (80-115) mg/dL Calcium (8.5-10.1) mg/dL Phosphorus (2.6-4.7) mg/dL Magnesium (1.8-2.4) mg/dl Total Bilirubin (0.2-1.0) mg/dL AST (15-37) U/L ALT (16-63) U/L Alkaline Phosphatase (46-116) U/L Total Protein (6.4-8.2) g/dl Albumin (3.4-5.0) g/dl Globulin gm/dL Albumin/Globulin Ratio (1-2) Crossmatch See Detail 08/17/19 08/18/19 08/18/19 Range/Units 18:18 00:35 05:25 WBC 10.45 H (4.23-9.07) K/mm3 RBC 3.24 L (4.63-6.08) M/mm3 Hgb 10.2 L (13.7-17.5) gm/dl Hct 32.5 L (40.1-51.0) % MCV 100.3 H (79.0-92.2) fl MCH 31.5 (25.7-32.2) pg MCHC 31.4 L (32.2-35.5) g/dl RDW Std Deviation 46.5 H (35.1-43.9) fL Plt Count 282 (163-337) K/mm3 MPV 9.3 L (9.4-12.3) fl Neut % (Auto) 84.4 H (34.0-67.9) % Lymph % (Auto) 8.5 L (21.8-53.1) % Barber % (Auto) 5.6 (5.3-12.2) % Eos % (Auto) 1.1 (0.8-7.0) Baso % (Auto) 0.2 (0.1-1.2) % Neut # (Auto) 8.81 H (1.78-5.38) K/mm3 Lymph # (Auto) 0.89 L (1.32-3.57) K/mm3 Barber # (Auto) 0.59 (0.30-0.82) K/mm3 Eos # (Auto) 0.12 (0.04-0.54) K/mm3 Baso # (Auto) 0.02 (0.01-0.08) K/mm3 Manual Slide Review Normal smear Sodium (136-145) mEq/L Potassium (3.5-5.1) mEq/L Chloride (98-107) mEq/L Carbon Dioxide (21-32) mEq/L Anion Gap (5-15) BUN (7-18) mg/dL Creatinine (0.7-1.3) mg/dL Est Cr Clr Drug Dosing mL/min Estimated GFR (MDRD) (>60) mL/min BUN/Creatinine Ratio (14-18) Glucose (80-115) mg/dL POC Glucose 159 H 113 (80-115) mg/dL Calcium (8.5-10.1) mg/dL Phosphorus (2.6-4.7) mg/dL Magnesium (1.8-2.4) mg/dl Total Bilirubin (0.2-1.0) mg/dL AST (15-37) U/L ALT (16-63) U/L Alkaline Phosphatase (46-116) U/L Total Protein (6.4-8.2) g/dl Albumin (3.4-5.0) g/dl Globulin gm/dL Albumin/Globulin Ratio (1-2) Crossmatch 08/18/19 08/18/19 Range/Units 05:25 05:37 WBC (4.23-9.07) K/mm3 RBC (4.63-6.08) M/mm3 Hgb (13.7-17.5) gm/dl Hct (40.1-51.0) % MCV (79.0-92.2) fl MCH (25.7-32.2) pg MCHC (32.2-35.5) g/dl RDW Std Deviation (35.1-43.9) fL Plt Count (163-337) K/mm3 MPV (9.4-12.3) fl Neut % (Auto) (34.0-67.9) % Lymph % (Auto) (21.8-53.1) % Barber % (Auto) (5.3-12.2) % Eos % (Auto) (0.8-7.0) Baso % (Auto) (0.1-1.2) % Neut # (Auto) (1.78-5.38) K/mm3 Lymph # (Auto) (1.32-3.57) K/mm3 Barber # (Auto) (0.30-0.82) K/mm3 Eos # (Auto) (0.04-0.54) K/mm3 Baso # (Auto) (0.01-0.08) K/mm3 Manual Slide Review Sodium 143 (136-145) mEq/L Potassium 4.0 (3.5-5.1) mEq/L Chloride 107 (98-107) mEq/L Carbon Dioxide 29 (21-32) mEq/L Anion Gap 11.0 (5-15) BUN 18 (7-18) mg/dL Creatinine 0.7 (0.7-1.3) mg/dL Est Cr Clr Drug Dosing 83.03 mL/min Estimated GFR (MDRD) > 60 (>60) mL/min BUN/Creatinine Ratio 25.7 H (14-18) Glucose 132 H (80-115) mg/dL POC Glucose 139 H (80-115) mg/dL Calcium 7.9 L (8.5-10.1) mg/dL Phosphorus 3.6 (2.6-4.7) mg/dL Magnesium 1.9 (1.8-2.4) mg/dl Total Bilirubin 0.5 (0.2-1.0) mg/dL AST 18 (15-37) U/L ALT 23 (16-63) U/L Alkaline Phosphatase 46 (46-116) U/L Total Protein 5.1 L (6.4-8.2) g/dl Albumin 2.3 L (3.4-5.0) g/dl Globulin 2.8 gm/dL Albumin/Globulin Ratio 0.8 L (1-2) Crossmatch Med Orders - Current: Current Medications Acetaminophen (Tylenol) 650 mg PO Q4H PRN PRN Reason: Pain (Mild 1-3)/fever Last Admin: 08/13/19 09:43 Dose: 650 mg Albuterol/Ipratropium (Duoneb 3.0-0.5 Mg/3 Ml) 3 ml NEB QIDRT PRN PRN Reason: SOB/wheezing Famotidine (Pepcid) 20 mg IVPUSH BEDTIME [facility] Last Admin: 08/17/19 20:33 Dose: 20 mg Haloperidol Lactate (Haldol) 5 mg IVPUSH BEDTIME [facility] Last Admin: 08/17/19 20:30 Dose: 5 mg Haloperidol Lactate (Haldol) 2 mg IVPUSH 0600,1400 [facility] Last Admin: 08/18/19 06:55 Dose: 2 mg Heparin Sodium (Porcine) (Heparin Sodium) 5,000 units SUBCUT Q8H [facility] Hydromorphone HCl (Dilaudid) 1 mg IVPUSH Q3H PRN PRN Reason: Pain Last Admin: 08/17/19 14:49 Dose: 1 mg Fat Emulsion Intravenous (Intralipid 20%) 500 mls @ 62.5 mls/hr IV MoWeFr [facility] Last Admin: 08/17/19 12:30 Dose: 62.5 mls/hr Sodium Chloride (Normal Saline) 1,000 mls @ 50 mls/hr IV ASDIRECTED [facility] Last Admin: 08/17/19 12:31 Dose: 50 mls/hr Amino Ac/Electrol/Dextrose/Calcium (Clinimix E 10/11) 1,000 mls @ 75 mls/hr IV TITRATE [facility] Last Admin: 08/18/19 00:11 Dose: 75 mls/hr Lorazepam (Ativan) 1 mg IVPUSH Q2H PRN PRN Reason: Anxiety Last Admin: 08/16/19 22:14 Dose: 1 mg Nicotine (Habitrol) 21 mg TRDERM DAILY [facility] Last Admin: 08/17/19 08:33 Dose: 21 mg Benztropine 2mg/2ml (Vial) 0 each IVPUSH BEDTIME [facility] Last Admin: 08/17/19 20:35 Dose: 1 each Ondansetron HCl (Zofran) 4 mg IVPUSH Q4H PRN PRN Reason: Nausea/Vomiting Last Admin: 08/18/19 05:33 Dose: 4 mg Pharmacy Consult (Consult To Pharmacy) 0 each .XX DAILY PRN PRN Reason: TPN MONITORING Sodium Chloride (Saline Flush) 10 ml FLUSH ASDIRECTED PRN PRN Reason: Keep Vein Open Last Admin: 08/11/19 16:44 Dose: 10 ml Discontinued Medications Albuterol (Proventil Neb Soln) 2.5 mg NEB ONETIME PRN PRN Reason: bronchodilation Stop: 08/15/19 18:00 Albuterol/Ipratropium (Duoneb 3.0-0.5 Mg/3 Ml) 3 ml NEB QIDRT [facility] Last Admin: 08/17/19 09:10 Dose: 3 ml Azithromycin (Zithromax) 250 mg PO BEDTIME [facility] Last Admin: 08/11/19 21:06 Dose: 250 mg Benzonatate (Tessalon Perles) 100 mg PO BID [facility] Last Admin: 08/15/19 21:36 Dose: Not Given Benztropine Mesylate (Cogentin) 1 mg PO BEDTIME [facility] Last Admin: 08/15/19 21:37 Dose: Not Given Benztropine Mesylate (Cogentin) 1 mg IVPUSH BEDTIME [facility] Cefazolin Sodium (Ancef) Confirm Administered Dose 2 gm .ROUTE .STK-MED ONE Stop: 08/15/19 15:23 Cefazolin Sodium (Ancef) Confirm Administered Dose 2 gm .ROUTE .STK-MED ONE Stop: 08/15/19 18:13 Cefdinir (Omnicef) 300 mg PO BID [facility] Last Admin: 08/14/19 08:58 Dose: 300 mg Ceftriaxone Sodium (Rocephin) Confirm Administered Dose 2 gm IV .STK-MED ONE Stop: 08/07/19 19:45 Last Admin: 08/07/19 19:51 Dose: Not Given Diatrizoate Meglum/Diatrizoate Sod (Gastrografin 37%) 90 ml PO ONETIME ONE Stop: 08/11/19 16:42 Last Admin: 08/11/19 16:43 Dose: 90 ml Ephedrine Sulfate (Ephedrine Sulfate) 5 mg IVPUSH ASDIRECTED PRN PRN Reason: Hypotension Stop: 08/15/19 18:00 Fentanyl (Sublimaze) Confirm Administered Dose 250 mcg .ROUTE .STK-MED ONE Stop: 08/15/19 12:16 Fentanyl (Sublimaze) 50 mcg IVPUSH Q5M PRN PRN Reason: Pain Stop: 08/15/19 18:00 Fentanyl (Sublimaze) Confirm Administered Dose 100 mcg .ROUTE .STK-MED ONE Stop: 08/15/19 17:11 Glycopyrrolate () Confirm Administered Dose 1 mg .ROUTE .STK-MED ONE Stop: 08/15/19 16:12 Guaifenesin (Mucinex) 600 mg PO BID [facility] Last Admin: 08/15/19 21:37 Dose: Not Given Guaifenesin (Mucinex) 600 mg PO BID [facility] Last Admin: 08/08/19 12:51 Dose: Not Given Haloperidol Lactate (Haldol) 5 mg IVPUSH BEDTIME [facility] Last Admin: 08/15/19 21:51 Dose: 5 mg Haloperidol Lactate (Haldol) 5 mg IV ONETIME PRN PRN Reason: Other Stop: 08/16/19 08:00 Haloperidol Lactate (Haldol) 5 mg IVPUSH Q8H [facility] Last Admin: 08/16/19 09:59 Dose: Not Given Haloperidol Lactate (Haldol) 2 mg IVPUSH ONETIME ONE Stop: 08/16/19 09:01 Last Admin: 08/16/19 09:57 Dose: 2 mg Hydromorphone HCl (Dilaudid) Confirm Administered Dose 0.5 mg .ROUTE .STK-MED ONE Stop: 08/15/19 15:22 Hydromorphone HCl (Dilaudid) 0.5 mg IVPUSH Q15M PRN PRN Reason: Pain (severe 7-10) Stop: 08/15/19 18:00 Hydromorphone HCl (Dilaudid) Confirm Administered Dose 0.5 mg .ROUTE .STK-MED ONE Stop: 08/15/19 16:18 Hydromorphone HCl (Dilaudid) Confirm Administered Dose 0.5 mg .ROUTE .STK-MED ONE Stop: 08/15/19 18:43 Hydromorphone HCl (Dilaudid) 0.5 mg IVPUSH ONETIME ONE Stop: 08/15/19 20:51 Last Admin: 08/15/19 20:59 Dose: 0.5 mg Hydromorphone HCl (Dilaudid) Confirm Administered Dose 0.5 mg .ROUTE .STK-MED ONE Stop: 08/15/19 21:00 Last Admin: 08/15/19 21:34 Dose: Not Given Hydromorphone HCl (Dilaudid) 0.5 mg IVPUSH Q3H PRN PRN Reason: Abdominal Pain Sodium Chloride (Normal Saline) 1,000 mls @ 150 mls/hr IV ASDIRECTED [facility] Last Admin: 08/08/19 06:02 Dose: 150 mls/hr Ceftriaxone Sodium 2 gm/ (Sodium Chloride) 100 mls @ 200 mls/hr IV ONETIME ONE Stop: 08/07/19 20:00 Last Admin: 08/07/19 19:47 Dose: Not Given Magnesium Sulfate 2 gm/ Premix 50 mls @ 25 mls/hr IV ONETIME ONE Stop: 08/07/19 21:42 Last Admin: 08/07/19 20:24 Dose: 25 mls/hr Ceftriaxone Sodium 2 gm/ (Sodium Chloride) 100 mls @ 200 mls/hr IV Q24H [facility] Stop: 08/07/19 20:15 Last Admin: 08/07/19 19:49 Dose: 200 mls/hr Sodium Chloride (Normal Saline) Confirm Administered Dose 100 mls @ as directed .ROUTE .STK-MED ONE Stop: 08/07/19 19:45 Last Admin: 08/07/19 19:51 Dose: Not Given Azithromycin 500 mg/ Sodium (Chloride) 250 mls @ 250 mls/hr IV Q24H [facility] Last Admin: 08/10/19 22:08 Dose: 250 mls/hr Ceftriaxone Sodium 2 gm/ (Sodium Chloride) 100 mls @ 200 mls/hr IV Q24H [facility] Last Admin: 08/10/19 21:25 Dose: 200 mls/hr Sodium Chloride (Normal Saline) 1,000 mls @ 75 mls/hr IV ASDIRECTED [facility] Sodium Phosphate 30 mmole/ (Sodium Chloride) 260 mls @ 130 mls/hr IV Q2H [facility] Stop: 08/10/19 15:59 Last Admin: 08/10/19 15:12 Dose: 130 mls/hr Magnesium Sulfate 2 gm/ Premix 50 mls @ 25 mls/hr IV ONETIME ONE Stop: 08/11/19 11:08 Last Admin: 08/11/19 09:38 Dose: 25 mls/hr Sodium Chloride (Normal Saline) 1,000 mls @ 75 mls/hr IV ASDIRECTED [facility] Last Admin: 08/12/19 09:24 Dose: 75 mls/hr Sodium Chloride (Normal Saline) Confirm Administered Dose 1,000 mls @ as directed .ROUTE .ST-MED ONE Stop: 08/11/19 17:34 Last Admin: 08/11/19 17:43 Dose: Not Given Dextrose/Sodium Chloride (Dextrose 5%-Normal Saline) 1,000 mls @ 100 mls/hr IV ASDIRECTED [facility] Last Infusion: 08/13/19 12:35 Dose: 50 mls/hr Dextrose/Sodium Chloride (Dextrose 5%-Normal Saline) 1,000 mls @ 50 mls/hr IV ASDIRECTED [facility] Dextrose/Sodium Chloride (Dextrose 5%-Normal Saline) 1,000 mls @ 125 mls/hr IV ASDIRECTED [facility] Last Admin: 08/16/19 01:04 Dose: 125 mls/hr Lidocaine HCl (Xylocaine-Mpf 1%) Confirm Administered Dose 4 mls @ as directed .ROUTE .STK-MED ONE Stop: 08/15/19 14:43 Lactated Ringer's (Ringers, Lactated) Confirm Administered Dose 1,000 mls @ as directed .ROUTE .STK-MED ONE Stop: 08/15/19 15:18 Lactated Ringer's (Ringers, Lactated) Confirm Administered Dose 1,000 mls @ as directed .ROUTE .ST-MED ONE Stop: 08/15/19 15:18 Phenylephrine HCl 1 mg/ Sodium (Chloride) 10.1 mls @ 1 mls/sec IV TITRATE [facility]; Protocol Stop: 08/15/19 18:00 Lactated Ringer's (Ringers, Lactated) Confirm Administered Dose 1,000 mls @ as directed .ROUTE .STK-MED ONE Stop: 08/15/19 15:57 Lactated Ringer's (Ringers, Lactated) Confirm Administered Dose 1,000 mls @ as directed .ROUTE .[facility]-MED ONE Stop: 08/15/19 18:09 Magnesium Sulfate 2 gm/ Premix 50 mls @ 25 mls/hr IV ONETIME ONE Stop: 08/16/19 10:10 Last Admin: 08/16/19 08:45 Dose: Not Given Magnesium Sulfate 4 gm/ Premix 50 mls @ 12.5 mls/hr IV ONETIME ONE Stop: 08/16/19 12:28 Last Admin: 08/16/19 08:46 Dose: 12.5 mls/hr Dextrose/Sodium Chloride (Dextrose 5%-Normal Saline) 1,000 mls @ 100 mls/hr IV ASDIRECTED [facility] Stop: 08/16/19 13:00 Last Infusion: 08/16/19 12:20 Dose: 20 mls/hr Dextrose/Sodium Chloride (Dextrose 5%-Normal Saline) 1,000 mls @ 20 mls/hr IV ASDIRECTED [facility] Last Admin: 08/17/19 06:33 Dose: 20 mls/hr Multivitamins/Minerals 10 ml/Chromium/Copper/Manganese/Zinc 1 ml/ Amino Ac/ Electrol/Dextrose/Calcium 1,011 mls @ 45 mls/hr IV ONETIME ONE Stop: 08/17/19 11:27 Last Admin: 08/16/19 13:15 Dose: 45 mls/hr Adjust Tpn Rate 720 mls @ 60 mls/hr .XX ONETIME ONE Stop: 08/17/19 12:59 Last Admin: 08/17/19 00:56 Dose: 60 mls/hr Multivitamins/Minerals 10 ml/Chromium/Copper/Manganese/Zinc 1 ml/ Amino Ac/ Electrol/Dextrose/Calcium 1,011 mls @ 60 mls/hr IV TITRATE [facility] Stop: 08/18/19 01:50 Last Admin: 08/17/19 08:52 Dose: 60 mls/hr Adjust Tpn Rate 720 mls @ 75 mls/hr .XX ONETIME ONE Stop: 08/17/19 22:35 Last Admin: 08/17/19 14:13 Dose: Not Given Influenza Virus Vaccine (Pharmacy To Dose - Influenza Vaccine) 1 each IM ONETIME ONE Stop: 08/07/19 22:46 Influenza Virus Vaccine (Fluzone High-Dose Syringe) 180 mcg IM .ONCE ONE Stop: 08/08/19 10:01 Iopamidol (Isovue-300 (61%)) 100 ml IVPUSH ONETIME ONE Stop: 08/11/19 16:42 Last Admin: 08/11/19 16:44 Dose: 100 ml Ipratropium Fenwick (Atrovent) 0.5 mg NEB Q4HRRT [facility] Last Admin: 08/11/19 13:29 Dose: 0.5 mg Ketamine HCl (Ketalar) Confirm Administered Dose 500 mg .ROUTE .STK-MED ONE Stop: 08/15/19 15:35 Ketorolac Tromethamine (Toradol) Confirm Administered Dose 30 mg .ROUTE .STK- MED ONE Stop: 08/15/19 18:40 Ketorolac Tromethamine (Toradol) 15 mg IVPUSH Q6H PRN PRN Reason: Pain Stop: 08/18/19 00:31 Last Admin: 08/17/19 20:26 Dose: 15 mg Lidocaine HCl (Xylocaine 1%) Confirm Administered Dose 50 ml .ROUTE .STK-MED ONE Stop: 08/15/19 07:11 Last Admin: 08/15/19 15:09 Dose: 4.5 ml Lidocaine HCl (Xylocaine 1%) Confirm Administered Dose 50 ml .ROUTE .STK-MED ONE Stop: 08/15/19 11:28 Magnesium Hydroxide (Milk Of Magnesia) 30 ml PO ONETIME ONE Stop: 08/14/19 07:43 Last Admin: 08/14/19 08:58 Dose: 30 ml Methadone HCl (Methadone) 5 mg PO BID [facility] Last Admin: 08/15/19 21:37 Dose: Not Given Midazolam HCl (Versed 1 Mg/Ml) Confirm Administered Dose 2 mg .ROUTE .STK-MED ONE Stop: 08/15/19 12:15 Miscellaneous Medication (Phenylephrine 1 Mg/10 Ml-Ns) Confirm Administered Dose 1 mg IV .STK-MED ONE Stop: 08/15/19 15:05 Miscellaneous Medication (Phenylephrine 1 Mg/10 Ml-Ns) Confirm Administered Dose 1 mg IV .STK-MED ONE Stop: 08/15/19 16:18 Miscellaneous Medication (Phenylephrine 1 Mg/10 Ml-Ns) Confirm Administered Dose 1 mg IV .STK-MED ONE Stop: 08/15/19 17:47 Miscellaneous Medication (Phenylephrine 1 Mg/10 Ml-Ns) Confirm Administered Dose 1 mg IV .STK-MED ONE Stop: 08/15/19 18:34 Neostigmine Methylsulfate (Neostigmine Methylsulfate) Confirm Administered Dose 5 mg .ROUTE .STK-MED ONE Stop: 08/15/19 16:12 Ondansetron HCl (Zofran) 4 mg IVPUSH ONETIME ONE Stop: 08/07/19 16:51 Last Admin: 08/07/19 17:20 Dose: 4 mg Ondansetron HCl (Zofran) 4 mg IVPUSH ONETIME ONE Stop: 08/07/19 19:12 Last Admin: 08/07/19 19:51 Dose: 4 mg Ondansetron HCl (Zofran Odt) 4 mg PO Q6H PRN PRN Reason: nausea, able to take PO Last Admin: 08/13/19 09:44 Dose: 4 mg Ondansetron HCl (Zofran) 4 mg IV Q6H [facility] Last Admin: 08/08/19 06:03 Dose: Not Given Ondansetron HCl (Zofran) 4 mg IV Q6H [facility] Last Admin: 08/08/19 12:40 Dose: 4 mg Ondansetron HCl (Zofran) 4 mg IVPUSH Q8H PRN PRN Reason: Nausea/Vomiting Last Admin: 08/13/19 15:04 Dose: 4 mg Ondansetron HCl (Zofran) 4 mg IVPUSH ONETIME PRN PRN Reason: Nausea/Vomiting Stop: 08/15/19 18:00 Ondansetron HCl (Zofran) Confirm Administered Dose 4 mg .ROUTE .STK-MED ONE Stop: 08/15/19 16:13 Oseltamivir Phosphate (Tamiflu) 75 mg PO BID [facility] Stop: 08/12/19 09:01 Last Admin: 08/12/19 09:24 Dose: 75 mg Propofol (Diprivan 20 Ml) Confirm Administered Dose 200 mg .ROUTE .STK-MED ONE Stop: 08/15/19 12:15 Risperidone (Risperidal) 2 mg PO BEDTIME [facility] Last Admin: 08/15/19 21:36 Dose: Not Given Risperidone (Risperidal) 1 mg PO DAILY [facility] Last Admin: 08/15/19 10:49 Dose: Not Given Rocuronium Fenwick (Zemuron) Confirm Administered Dose 50 mg .ROUTE .STK-MED ONE Stop: 08/15/19 12:14 Rocuronium Fenwick (Zemuron) Confirm Administered Dose 50 mg .ROUTE .STK-MED ONE Stop: 08/15/19 16:10 Sodium Chloride (Saline Flush) 10 ml FLUSH ONETIME ONE Stop: 08/11/19 16:42 Last Admin: 08/11/19 16:46 Dose: 10 ml Trazodone HCl (Trazodone) 50 mg PO BEDTIME [facility] Last Admin: 08/15/19 21:50 Dose: Not Given - Exam Quality Assessment: DVT Prophylaxis General: Alert, Oriented, Cooperative, No Acute Distress HEENT: Pupils Equal, Pupils Reactive, Mucous Membr. Moist/Temperance Neck: Supple, Trachea Midline Lungs: Clear to Auscultation, Normal Respiratory Effort Cardiovascular: Regular Rate, Regular Rhythm GI/Abdominal Exam: Normal Bowel Sounds, Soft, No Distention, Tender ( generalized ) (Male) Exam: Deferred Back Exam: Normal Inspection, Full Range of Motion Extremities: Normal Inspection, Normal Range of Motion, Non-Tender, No Pedal Edema, Normal Capillary Refill Skin: Warm, Dry, Intact Neurological: No New Focal Deficit Psy/Mental Status: Alert Sepsis Event Note - Evaluation Sepsis Screening Result: No Definite Risk - Focused Exam Vital Signs: Vital Signs Temp Temp Pulse Pulse Resp BP BP 08/18/19 08:00 99.5 F 88 16 101/53 L 08/18/19 05:28 98.1 F 92 16 115/54 L 08/18/19 00:17 98.1 F 93 18 134/63 08/17/19 21:00 08/17/19 20:19 98.4 F 97 16 132/74 Pulse Ox Pulse Ox 08/18/19 08:00 91 L 08/18/19 05:28 91 L 08/18/19 00:17 91 L 08/17/19 21:00 90 L 08/17/19 20:19 90 L Date Exam was Performed: 08/18/19 Time Exam was Performed: 14:00 - Problem List & Annotations (1) Acute hypoxemic respiratory failure SNOMED Code(s): 709184973 Code(s): J96.01 - ACUTE RESPIRATORY FAILURE WITH HYPOXIA Status: Acute Priority: High Current Visit: Yes (2) Chronic pain SNOMED Code(s): 07807198 Code(s): G89.29 - OTHER CHRONIC PAIN Status: Chronic Priority: Medium Current Visit: Yes Qualifiers: Chronic pain type: other chronic pain Qualified Code(s): G89.29 - Other chronic pain (3) Hypoalbuminemia SNOMED Code(s): 479996020 Code(s): E88.09 - OTH DISORDERS OF PLASMA-PROTEIN METABOLISM, NEC Status: Acute Priority: High Current Visit: Yes (4) Hypomagnesemia SNOMED Code(s): 128080606 Code(s): E83.42 - HYPOMAGNESEMIA Status: Resolved Priority: High Current Visit: Yes (5) Hyponatremia SNOMED Code(s): 46415511 Code(s): E87.1 - HYPO-OSMOLALITY AND HYPONATREMIA Status: Resolved Priority: High Current Visit: Yes (6) Hypophosphatemia SNOMED Code(s): 4439928 Code(s): E83.39 - OTHER DISORDERS OF PHOSPHORUS METABOLISM Status: Resolved Priority: High Current Visit: Yes (7) Intractable nausea and vomiting SNOMED Code(s): 993938657 Code(s): R11.2 - NAUSEA WITH VOMITING, UNSPECIFIED Status: Resolved Priority: High Current Visit: Yes (8) Leukocytosis SNOMED Code(s): 094585942, 478001568 Code(s): D72.829 - ELEVATED WHITE BLOOD CELL COUNT, UNSPECIFIED Status: Acute Priority: High Current Visit: Yes Qualifiers: Leukocytosis type: unspecified Qualified Code(s): D72.829 - Elevated white blood cell count, unspecified (9) Lung nodule SNOMED Code(s): 306544649 Code(s): R91.1 - SOLITARY PULMONARY NODULE Status: Acute Priority: High Current Visit: Yes (10) Macrocytosis without anemia SNOMED Code(s): 260821853 Code(s): D75.89 - OTHER SPECIFIED DISEASES OF BLOOD AND BLOOD-FORMING ORGANS Status: Acute Priority: High Current Visit: Yes (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 Code(s): 91526799, 373368105 Code(s): F11.20 - OPIOID DEPENDENCE, UNCOMPLICATED Status: Chronic Priority: Medium Current Visit: Yes (12) Pneumonia SNOMED Code(s): 069011321 Code(s): J18.9 - PNEUMONIA, UNSPECIFIED ORGANISM Status: Acute Priority: High Current Visit: Yes Qualifiers: Pneumonia type: due to unspecified organism Laterality: unspecified laterality Lung location: unspecified part of lung Qualified Code(s): J18.9 - Pneumonia, unspecified organism (13) Productive cough SNOMED Code(s): 27889372, 540329722, 025535594 Code(s): R05 - COUGH Status: Acute Priority: High Current Visit: Yes (14) Schizophrenia SNOMED Code(s): 59419060 Code(s): F20.9 - SCHIZOPHRENIA, UNSPECIFIED Status: Chronic Priority: Medium Current Visit: Yes Qualifiers: Schizophrenia type: unspecified Qualified Code(s): F20.9 - Schizophrenia, unspecified (15) Smoker SNOMED Code(s): 26869579 Code(s): F17.200 - NICOTINE DEPENDENCE, UNSPECIFIED, UNCOMPLICATED Status: Chronic Priority: Medium Current Visit: Yes (16) Tachycardia SNOMED Code(s): 9039560 Code(s): R00.0 - TACHYCARDIA, UNSPECIFIED Status: Resolved Priority: High Current Visit: Yes (17) Small bowel obstruction SNOMED Code(s): 180566731 Code(s): K56.609 - UNSP INTESTNL OBST, UNSP TO PARTIAL VERSUS COMPLETE OBST Status: Acute Priority: High Current Visit: Yes (18) Laparoscopic surgical procedure converted to open procedure SNOMED Code(s): 955237127 Code(s): Z53.31 - LAPAROSCOPIC SURGICAL PROCEDURE CONVERTED TO OPEN PROCEDURE Status: Acute Priority: High Current Visit: Yes (19) S/P laparotomy SNOMED Code(s): 626996048, 932532459, 737867822 Code(s): Z98.890 - OTHER SPECIFIED POSTPROCEDURAL STATES Status: Acute Priority: High Current Visit: Yes - Problem List Review Problem List Initiated/Reviewed/Updated: Yes - My Orders Last 24 Hours: My Active Orders 08/17/19 10:38 Albuterol/Ipratropium [DuoNeb 3.0-0.5 MG/3 ML] 3 ml NEB QIDRT PRN - Plan Plan:: Postop day 3 Exploratory laparotomy, extensive lysis of adhesions, liver cyst excision, CVC placement. Patient is doing well. Postop ileus. Active bowel sounds Reports belching and flatus Plan - Start TPN and lipids - Dr. Egan managing pain and TPN co-managed with dietary and pharmacy - IV fluids as ordered SBO -post exploratory open laparotomy with Dr. Egan Initially presented with intractable nausea and vomiting to ED Has been stable since admission, vomited x1 on 08/11/19 after drinking coffee Tender knob in RUQ noted on physical exam - not gallbladder, calcified mass on CT. Patient reports chronic since [address] scan Multiple adhesions and right upper quadrant mass excised. PLAN - NG tube to low intermittent suctioning -NmL output from 0400 to 1500 - Strict NPO - Monitor blood sugars Pneumonia -clinically resolved Acute hypoxemic respiratory failure -resolved Emphysema Chronic cough, acutely worsening in past week Associated with fever - none on floor CXR with infiltrate in posterior lobes CLINICAL REGISTERED NURSE evaluation - regular diet, thin liquids PLAN - Completed azithromycin, Tamiflu and Rocephin - Atrovent q4h PRN - Incentive spirometer/Acapella - ABG as needed - Goal SatO2 > 88% Lung nodule, right lung Active Smoker Smokes 2/4ppd > 40y Stable lung nodule noted on CT exam 08/11/19 PLAN - Nicotine patch Schizophrenia Home management with Trazodone, Risperdal and Benztropine PLAN -Patient is strict n.p.o. and on oral Resporal. Will transition to Haldol and Ativan. -Transition all meds to IV as able. Chronic pain Methadone maintenance therapy patient Denies any current pain PLAN -Pain management per Dr. Egan Muscle wasting Hypoalbuminemia Macrocytosis without anemia Significant muscle wasting Vitamin B12 level and folic acid level WNL Pre-albumin low Follow electrolytes closely PROPHYLAXIS DVT- compression stockings, Heparin CODE STATUS: FULL CODE LOS >96 HRS due to exploratory laparotomy, resulting ileus, awaiting return of bowel function, IV fluids/nutrition.
[2019-08-18] MEDS: Sodium Chloride 0.9% 1,000 ML IV SCH (08:16)
--- NOTE | 2019-08-18 08:31 | PCM.SURGPN ---
- General Info Date of Service: 08/18/19 Date of Surgery/Procedure: 08/15/19 POD#: 3 Post-Op Diagnosis: Small bowel obstruction Functional Status: Reports: Pain Controlled, Ambulating, Urinating, Other (NGT output is still high) Pain Score: 3 - Review of Systems General: Reports: No Symptoms HEENT: Reports: No Symptoms Pulmonary: Reports: No Symptoms Cardiovascular: Reports: No Symptoms Gastrointestinal: Reports: Abdominal Pain Genitourinary: Reports: No Symptoms Musculoskeletal: Reports: No Symptoms Skin: Reports: No Symptoms Neurological: Reports: No Symptoms - Patient Data Vitals - Most Recent: Last Vital Signs Temp 99.5 F 08/18/19 08:00 Pulse 88 08/18/19 08:00 Resp 16 08/18/19 08:00 BP 101/53 L 08/18/19 08:00 Pulse Ox 91 L 08/18/19 08:00 Orthostatic Blood Pressure [ 109/60 Standing] Orthostatic Blood Pressure [ 120/69 Sitting] Orthostatic Blood Pressure [ 120/79 Supine] Weight - Most Recent: 59.783 kg I&O - Last 24 Hours: Intake & Output 08/17/19 08/18/19 08/18/19 22:59 06:59 14:59 Intake Total 1163 1480 Output Total 995 960 Balance 168 520 Lab Results Last 24 Hrs: Laboratory Results - last 24 hr 08/14/19 08/17/19 08/17/19 Range/Units 10:20 06:56 13:00 WBC (4.23-9.07) K/mm3 RBC (4.63-6.08) M/mm3 Hgb (13.7-17.5) gm/dl Hct (40.1-51.0) % MCV (79.0-92.2) fl MCH (25.7-32.2) pg MCHC (32.2-35.5) g/dl RDW Std Deviation (35.1-43.9) fL Plt Count (163-337) K/mm3 MPV (9.4-12.3) fl Neut % (Auto) (34.0-67.9) % Lymph % (Auto) (21.8-53.1) % [place] % (Auto) (5.3-12.2) % Eos % (Auto) (0.8-7.0) Baso % (Auto) (0.1-1.2) % Neut # (Auto) (1.78-5.38) K/mm3 Lymph # (Auto) (1.32-3.57) K/mm3 [place] # (Auto) (0.30-0.82) K/mm3 Eos # (Auto) (0.04-0.54) K/mm3 Baso # (Auto) (0.01-0.08) K/mm3 Manual Slide Review Sodium (136-145) mEq/L Potassium (3.5-5.1) mEq/L Chloride (98-107) mEq/L Carbon Dioxide (21-32) mEq/L Anion Gap (5-15) BUN (7-18) mg/dL Creatinine (0.7-1.3) mg/dL Est Cr Clr Drug Dosing mL/min Estimated GFR (MDRD) (>60) mL/min BUN/Creatinine Ratio (14-18) Glucose (80-115) mg/dL POC Glucose 135 H 153 H (80-115) mg/dL Calcium (8.5-10.1) mg/dL Phosphorus (2.6-4.7) mg/dL Magnesium (1.8-2.4) mg/dl Total Bilirubin (0.2-1.0) mg/dL AST (15-37) U/L ALT (16-63) U/L Alkaline Phosphatase (46-116) U/L Total Protein (6.4-8.2) g/dl Albumin (3.4-5.0) g/dl Globulin gm/dL Albumin/Globulin Ratio (1-2) Crossmatch See Detail 08/17/19 08/18/19 08/18/19 Range/Units 18:18 00:35 05:25 WBC 10.45 H (4.23-9.07) K/mm3 RBC 3.24 L (4.63-6.08) M/mm3 Hgb 10.2 L (13.7-17.5) gm/dl Hct 32.5 L (40.1-51.0) % MCV 100.3 H (79.0-92.2) fl MCH 31.5 (25.7-32.2) pg MCHC 31.4 L (32.2-35.5) g/dl RDW Std Deviation 46.5 H (35.1-43.9) fL Plt Count 282 (163-337) K/mm3 MPV 9.3 L (9.4-12.3) fl Neut % (Auto) 84.4 H (34.0-67.9) % Lymph % (Auto) 8.5 L (21.8-53.1) % [place] % (Auto) 5.6 (5.3-12.2) % Eos % (Auto) 1.1 (0.8-7.0) Baso % (Auto) 0.2 (0.1-1.2) % Neut # (Auto) 8.81 H (1.78-5.38) K/mm3 Lymph # (Auto) 0.89 L (1.32-3.57) K/mm3 [place] # (Auto) 0.59 (0.30-0.82) K/mm3 Eos # (Auto) 0.12 (0.04-0.54) K/mm3 Baso # (Auto) 0.02 (0.01-0.08) K/mm3 Manual Slide Review Normal smear Sodium (136-145) mEq/L Potassium (3.5-5.1) mEq/L Chloride (98-107) mEq/L Carbon Dioxide (21-32) mEq/L Anion Gap (5-15) BUN (7-18) mg/dL Creatinine (0.7-1.3) mg/dL Est Cr Clr Drug Dosing mL/min Estimated GFR (MDRD) (>60) mL/min BUN/Creatinine Ratio (14-18) Glucose (80-115) mg/dL POC Glucose 159 H 113 (80-115) mg/dL Calcium (8.5-10.1) mg/dL Phosphorus (2.6-4.7) mg/dL Magnesium (1.8-2.4) mg/dl Total Bilirubin (0.2-1.0) mg/dL AST (15-37) U/L ALT (16-63) U/L Alkaline Phosphatase (46-116) U/L Total Protein (6.4-8.2) g/dl Albumin (3.4-5.0) g/dl Globulin gm/dL Albumin/Globulin Ratio (1-2) Crossmatch 03/26/20 03/26/20 Range/Units 05:25 05:37 WBC (4.23-9.07) K/mm3 RBC (4.63-6.08) M/mm3 Hgb (13.7-17.5) gm/dl Hct (40.1-51.0) % MCV (79.0-92.2) fl MCH (25.7-32.2) pg MCHC (32.2-35.5) g/dl RDW Std Deviation (35.1-43.9) fL Plt Count (163-337) K/mm3 MPV (9.4-12.3) fl Neut % (Auto) (34.0-67.9) % Lymph % (Auto) (21.8-53.1) % [place] % (Auto) (5.3-12.2) % Eos % (Auto) (0.8-7.0) Baso % (Auto) (0.1-1.2) % Neut # (Auto) (1.78-5.38) K/mm3 Lymph # (Auto) (1.32-3.57) K/mm3 [place] # (Auto) (0.30-0.82) K/mm3 Eos # (Auto) (0.04-0.54) K/mm3 Baso # (Auto) (0.01-0.08) K/mm3 Manual Slide Review Sodium 143 (136-145) mEq/L Potassium 4.0 (3.5-5.1) mEq/L Chloride 107 (98-107) mEq/L Carbon Dioxide 29 (21-32) mEq/L Anion Gap 11.0 (5-15) BUN 18 (7-18) mg/dL Creatinine 0.7 (0.7-1.3) mg/dL Est Cr Clr Drug Dosing 83.03 mL/min Estimated GFR (MDRD) > 60 (>60) mL/min BUN/Creatinine Ratio 25.7 H (14-18) Glucose 132 H (80-115) mg/dL POC Glucose 139 H (80-115) mg/dL Calcium 7.9 L (8.5-10.1) mg/dL Phosphorus 3.6 (2.6-4.7) mg/dL Magnesium 1.9 (1.8-2.4) mg/dl Total Bilirubin 0.5 (0.2-1.0) mg/dL AST 18 (15-37) U/L ALT 23 (16-63) U/L Alkaline Phosphatase 46 (46-116) U/L Total Protein 5.1 L (6.4-8.2) g/dl Albumin 2.3 L (3.4-5.0) g/dl Globulin 2.8 gm/dL Albumin/Globulin Ratio 0.8 L (1-2) Crossmatch Med Orders - Current: Current Medications Acetaminophen (Tylenol) 650 mg PO Q4H PRN PRN Reason: Pain (Mild 1-3)/fever Last Admin: 08/13/19 09:43 Dose: 650 mg Albuterol/Ipratropium (Duoneb 3.0-0.5 Mg/3 Ml) 3 ml NEB QIDRT PRN PRN Reason: SOB/wheezing Famotidine (Pepcid) 20 mg IVPUSH BEDTIME [facility] Last Admin: 08/17/19 20:33 Dose: 20 mg Haloperidol Lactate (Haldol) 5 mg IVPUSH BEDTIME [facility] Last Admin: 08/17/19 20:30 Dose: 5 mg Haloperidol Lactate (Haldol) 2 mg IVPUSH 0600,1400 [facility] Last Admin: 08/18/19 06:55 Dose: 2 mg Heparin Sodium (Porcine) (Heparin Sodium) 5,000 units SUBCUT Q8H [facility] Last Admin: 08/18/19 08:11 Dose: 5,000 units Hydromorphone HCl (Dilaudid) 1 mg IVPUSH Q3H PRN PRN Reason: Pain Last Admin: 08/17/19 14:49 Dose: 1 mg Fat Emulsion Intravenous (Intralipid 20%) 500 mls @ 62.5 mls/hr IV MoWeFr [facility] Last Admin: 08/17/19 12:30 Dose: 62.5 mls/hr Sodium Chloride (Normal Saline) 1,000 mls @ 50 mls/hr IV ASDIRECTED [facility] Last Admin: 08/18/19 08:16 Dose: 50 mls/hr Amino Ac/Electrol/Dextrose/Calcium (Clinimix E 10/11) 1,000 mls @ 75 mls/hr IV TITRATE [facility] Last Admin: 08/18/19 00:11 Dose: 75 mls/hr Lorazepam (Ativan) 1 mg IVPUSH Q2H PRN PRN Reason: Anxiety Last Admin: 08/16/19 22:14 Dose: 1 mg Nicotine (Habitrol) 21 mg TRDERM DAILY [facility] Last Admin: 08/18/19 08:08 Dose: 21 mg Benztropine 2mg/2ml (Vial) 0 each IVPUSH BEDTIME [facility] Last Admin: 08/17/19 20:35 Dose: 1 each Ondansetron HCl (Zofran) 4 mg IVPUSH Q4H PRN PRN Reason: Nausea/Vomiting Last Admin: 08/18/19 05:33 Dose: 4 mg Pharmacy Consult (Consult To Pharmacy) 0 each .XX DAILY PRN PRN Reason: TPN MONITORING Sodium Chloride (Saline Flush) 10 ml FLUSH ASDIRECTED PRN PRN Reason: Keep Vein Open Last Admin: 08/11/19 16:44 Dose: 10 ml Discontinued Medications Albuterol (Proventil Neb Soln) 2.5 mg NEB ONETIME PRN PRN Reason: bronchodilation Stop: 08/15/19 18:00 Albuterol/Ipratropium (Duoneb 3.0-0.5 Mg/3 Ml) 3 ml NEB QIDRT [facility] Last Admin: 08/17/19 09:10 Dose: 3 ml Azithromycin (Zithromax) 250 mg PO BEDTIME [facility] Last Admin: 08/11/19 21:06 Dose: 250 mg Benzonatate (Tessalon Perles) 100 mg PO BID [facility] Last Admin: 08/15/19 21:36 Dose: Not Given Benztropine Mesylate (Cogentin) 1 mg PO BEDTIME [facility] Last Admin: 08/15/19 21:37 Dose: Not Given Benztropine Mesylate (Cogentin) 1 mg IVPUSH BEDTIME [facility] Cefazolin Sodium (Ancef) Confirm Administered Dose 2 gm .ROUTE .STK-MED ONE Stop: 08/15/19 15:23 Cefazolin Sodium (Ancef) Confirm Administered Dose 2 gm .ROUTE .STK-MED ONE Stop: 08/15/19 18:13 Cefdinir (Omnicef) 300 mg PO BID [facility] Last Admin: 08/14/19 08:58 Dose: 300 mg Ceftriaxone Sodium (Rocephin) Confirm Administered Dose 2 gm IV .STK-MED ONE Stop: 08/07/19 19:45 Last Admin: 08/07/19 19:51 Dose: Not Given Diatrizoate Meglum/Diatrizoate Sod (Gastrografin 37%) 90 ml PO ONETIME ONE Stop: 08/11/19 16:42 Last Admin: 08/11/19 16:43 Dose: 90 ml Ephedrine Sulfate (Ephedrine Sulfate) 5 mg IVPUSH ASDIRECTED PRN PRN Reason: Hypotension Stop: 08/15/19 18:00 Fentanyl (Sublimaze) Confirm Administered Dose 250 mcg .ROUTE .STK-MED ONE Stop: 08/15/19 12:16 Fentanyl (Sublimaze) 50 mcg IVPUSH Q5M PRN PRN Reason: Pain Stop: 08/15/19 18:00 Fentanyl (Sublimaze) Confirm Administered Dose 100 mcg .ROUTE .STK-MED ONE Stop: 08/15/19 17:11 Glycopyrrolate () Confirm Administered Dose 1 mg .ROUTE .STK-MED ONE Stop: 08/15/19 16:12 Guaifenesin (Mucinex) 600 mg PO BID [facility] Last Admin: 08/15/19 21:37 Dose: Not Given Guaifenesin (Mucinex) 600 mg PO BID [facility] Last Admin: 08/08/19 12:51 Dose: Not Given Haloperidol Lactate (Haldol) 5 mg IVPUSH BEDTIME [facility] Last Admin: 08/15/19 21:51 Dose: 5 mg Haloperidol Lactate (Haldol) 5 mg IV ONETIME PRN PRN Reason: Other Stop: 08/16/19 08:00 Haloperidol Lactate (Haldol) 5 mg IVPUSH Q8H [facility] Last Admin: 08/16/19 09:59 Dose: Not Given Haloperidol Lactate (Haldol) 2 mg IVPUSH ONETIME ONE Stop: 08/16/19 09:01 Last Admin: 08/16/19 09:57 Dose: 2 mg Hydromorphone HCl (Dilaudid) Confirm Administered Dose 0.5 mg .ROUTE .STK-MED ONE Stop: 08/15/19 15:22 Hydromorphone HCl (Dilaudid) 0.5 mg IVPUSH Q15M PRN PRN Reason: Pain (severe 7-10) Stop: 08/15/19 18:00 Hydromorphone HCl (Dilaudid) Confirm Administered Dose 0.5 mg .ROUTE .STK-MED ONE Stop: 08/15/19 16:18 Hydromorphone HCl (Dilaudid) Confirm Administered Dose 0.5 mg .ROUTE .STK-MED ONE Stop: 08/15/19 18:43 Hydromorphone HCl (Dilaudid) 0.5 mg IVPUSH ONETIME ONE Stop: 08/15/19 20:51 Last Admin: 08/15/19 20:59 Dose: 0.5 mg Hydromorphone HCl (Dilaudid) Confirm Administered Dose 0.5 mg .ROUTE .STK-MED ONE Stop: 08/15/19 21:00 Last Admin: 08/15/19 21:34 Dose: Not Given Hydromorphone HCl (Dilaudid) 0.5 mg IVPUSH Q3H PRN PRN Reason: Abdominal Pain Sodium Chloride (Normal Saline) 1,000 mls @ 150 mls/hr IV ASDIRECTED [facility] Last Admin: 08/08/19 06:02 Dose: 150 mls/hr Ceftriaxone Sodium 2 gm/ (Sodium Chloride) 100 mls @ 200 mls/hr IV ONETIME ONE Stop: 08/07/19 20:00 Last Admin: 08/07/19 19:47 Dose: Not Given Magnesium Sulfate 2 gm/ Premix 50 mls @ 25 mls/hr IV ONETIME ONE Stop: 08/07/19 21:42 Last Admin: 08/07/19 20:24 Dose: 25 mls/hr Ceftriaxone Sodium 2 gm/ (Sodium Chloride) 100 mls @ 200 mls/hr IV Q24H [facility] Stop: 08/07/19 20:15 Last Admin: 08/07/19 19:49 Dose: 200 mls/hr Sodium Chloride (Normal Saline) Confirm Administered Dose 100 mls @ as directed .ROUTE .STK-MED ONE Stop: 08/07/19 19:45 Last Admin: 08/07/19 19:51 Dose: Not Given Azithromycin 500 mg/ Sodium (Chloride) 250 mls @ 250 mls/hr IV Q24H [facility] Last Admin: 08/10/19 22:08 Dose: 250 mls/hr Ceftriaxone Sodium 2 gm/ (Sodium Chloride) 100 mls @ 200 mls/hr IV Q24H [facility] Last Admin: 08/10/19 21:25 Dose: 200 mls/hr Sodium Chloride (Normal Saline) 1,000 mls @ 75 mls/hr IV ASDIRECTED [facility] Sodium Phosphate 30 mmole/ (Sodium Chloride) 260 mls @ 130 mls/hr IV Q2H [facility] Stop: 08/10/19 15:59 Last Admin: 08/10/19 15:12 Dose: 130 mls/hr Magnesium Sulfate 2 gm/ Premix 50 mls @ 25 mls/hr IV ONETIME ONE Stop: 08/11/19 11:08 Last Admin: 08/11/19 09:38 Dose: 25 mls/hr Sodium Chloride (Normal Saline) 1,000 mls @ 75 mls/hr IV ASDIRECTED [facility] Last Admin: 08/12/19 09:24 Dose: 75 mls/hr Sodium Chloride (Normal Saline) Confirm Administered Dose 1,000 mls @ as directed .ROUTE .[facility] ONE Stop: 08/11/19 17:34 Last Admin: 08/11/19 17:43 Dose: Not Given Dextrose/Sodium Chloride (Dextrose 5%-Normal Saline) 1,000 mls @ 100 mls/hr IV ASDIRECTED [facility] Last Infusion: 08/13/19 12:35 Dose: 50 mls/hr Dextrose/Sodium Chloride (Dextrose 5%-Normal Saline) 1,000 mls @ 50 mls/hr IV ASDIRECTED [facility] Dextrose/Sodium Chloride (Dextrose 5%-Normal Saline) 1,000 mls @ 125 mls/hr IV ASDIRECTED [facility] Last Admin: 08/16/19 01:04 Dose: 125 mls/hr Lidocaine HCl (Xylocaine-Mpf 1%) Confirm Administered Dose 4 mls @ as directed .ROUTE .[facility] ONE Stop: 08/15/19 14:43 Lactated Ringer's (Ringers, Lactated) Confirm Administered Dose 1,000 mls @ as directed .ROUTE .[facility]-MED ONE Stop: 08/15/19 15:18 Lactated Ringer's (Ringers, Lactated) Confirm Administered Dose 1,000 mls @ as directed .ROUTE .[facility] ONE Stop: 08/15/19 15:18 Phenylephrine HCl 1 mg/ Sodium (Chloride) 10.1 mls @ 1 mls/sec IV TITRATE [facility]; Protocol Stop: 08/15/19 18:00 Lactated Ringer's (Ringers, Lactated) Confirm Administered Dose 1,000 mls @ as directed .ROUTE .STK-MED ONE Stop: 08/15/19 15:57 Lactated Ringer's (Ringers, Lactated) Confirm Administered Dose 1,000 mls @ as directed .ROUTE .STK-MED ONE Stop: 08/15/19 18:09 Magnesium Sulfate 2 gm/ Premix 50 mls @ 25 mls/hr IV ONETIME ONE Stop: 08/16/19 10:10 Last Admin: 08/16/19 08:45 Dose: Not Given Magnesium Sulfate 4 gm/ Premix 50 mls @ 12.5 mls/hr IV ONETIME ONE Stop: 08/16/19 12:28 Last Admin: 08/16/19 08:46 Dose: 12.5 mls/hr Dextrose/Sodium Chloride (Dextrose 5%-Normal Saline) 1,000 mls @ 100 mls/hr IV ASDIRECTED [facility] Stop: 08/16/19 13:00 Last Infusion: 08/16/19 12:20 Dose: 20 mls/hr Dextrose/Sodium Chloride (Dextrose 5%-Normal Saline) 1,000 mls @ 20 mls/hr IV ASDIRECTED [facility] Last Admin: 08/17/19 06:33 Dose: 20 mls/hr Multivitamins/Minerals 10 ml/Chromium/Copper/Manganese/Zinc 1 ml/ Amino Ac/ Electrol/Dextrose/Calcium 1,011 mls @ 45 mls/hr IV ONETIME ONE Stop: 08/17/19 11:27 Last Admin: 08/16/19 13:15 Dose: 45 mls/hr Adjust Tpn Rate 720 mls @ 60 mls/hr .XX ONETIME ONE Stop: 08/17/19 12:59 Last Admin: 08/17/19 00:56 Dose: 60 mls/hr Multivitamins/Minerals 10 ml/Chromium/Copper/[place]anganese/Zinc 1 ml/ Amino Ac/ Electrol/Dextrose/Calcium 1,011 mls @ 60 mls/hr IV TITRATE [facility] Stop: 08/18/19 01:50 Last Admin: 08/17/19 08:52 Dose: 60 mls/hr Adjust Tpn Rate 720 mls @ 75 mls/hr .XX ONETIME ONE Stop: 08/17/19 22:35 Last Admin: 08/17/19 14:13 Dose: Not Given Influenza Virus Vaccine (Pharmacy To Dose - Influenza Vaccine) 1 each IM ONETIME ONE Stop: 08/07/19 22:46 Influenza Virus Vaccine (Fluzone High-Dose Syringe) 180 mcg IM .ONCE ONE Stop: 08/08/19 10:01 Iopamidol (Isovue-300 (61%)) 100 ml IVPUSH ONETIME ONE Stop: 08/11/19 16:42 Last Admin: 08/11/19 16:44 Dose: 100 ml Ipratropium [place] (Atrovent) 0.5 mg NEB Q4HRRT [facility] Last Admin: 08/11/19 13:29 Dose: 0.5 mg Ketamine HCl (Ketalar) Confirm Administered Dose 500 mg .ROUTE .STK-MED ONE Stop: 08/15/19 15:35 Ketorolac Tromethamine (Toradol) Confirm Administered Dose 30 mg .ROUTE .STK- MED ONE Stop: 08/15/19 18:40 Ketorolac Tromethamine (Toradol) 15 mg IVPUSH Q6H PRN PRN Reason: Pain Stop: 08/18/19 00:31 Last Admin: 08/17/19 20:26 Dose: 15 mg Lidocaine HCl (Xylocaine 1%) Confirm Administered Dose 50 ml .ROUTE .STK-MED ONE Stop: 08/15/19 07:11 Last Admin: 08/15/19 15:09 Dose: 4.5 ml Lidocaine HCl (Xylocaine 1%) Confirm Administered Dose 50 ml .ROUTE .STK-MED ONE Stop: 08/15/19 11:28 Magnesium Hydroxide (Milk Of Magnesia) 30 ml PO ONETIME ONE Stop: 08/14/19 07:43 Last Admin: 08/14/19 08:58 Dose: 30 ml Methadone HCl (Methadone) 5 mg PO BID [facility] Last Admin: 08/15/19 21:37 Dose: Not Given Midazolam HCl (Versed 1 Mg/Ml) Confirm Administered Dose 2 mg .ROUTE .STK-MED ONE Stop: 08/15/19 12:15 Miscellaneous Medication (Phenylephrine 1 Mg/10 Ml-Ns) Confirm Administered Dose 1 mg IV .STK-MED ONE Stop: 08/15/19 15:05 Miscellaneous Medication (Phenylephrine 1 Mg/10 Ml-Ns) Confirm Administered Dose 1 mg IV .STK-MED ONE Stop: 08/15/19 16:18 Miscellaneous Medication (Phenylephrine 1 Mg/10 Ml-Ns) Confirm Administered Dose 1 mg IV .STK-MED ONE Stop: 08/15/19 17:47 Miscellaneous Medication (Phenylephrine 1 Mg/10 Ml-Ns) Confirm Administered Dose 1 mg IV .STK-MED ONE Stop: 08/15/19 18:34 Neostigmine Methylsulfate (Neostigmine Methylsulfate) Confirm Administered Dose 5 mg .ROUTE .STK-MED ONE Stop: 08/15/19 16:12 Ondansetron HCl (Zofran) 4 mg IVPUSH ONETIME ONE Stop: 08/07/19 16:51 Last Admin: 08/07/19 17:20 Dose: 4 mg Ondansetron HCl (Zofran) 4 mg IVPUSH ONETIME ONE Stop: 08/07/19 19:12 Last Admin: 08/07/19 19:51 Dose: 4 mg Ondansetron HCl (Zofran Odt) 4 mg PO Q6H PRN PRN Reason: nausea, able to take PO Last Admin: 08/13/19 09:44 Dose: 4 mg Ondansetron HCl (Zofran) 4 mg IV Q6H [facility] Last Admin: 08/08/19 06:03 Dose: Not Given Ondansetron HCl (Zofran) 4 mg IV Q6H [facility] Last Admin: 08/08/19 12:40 Dose: 4 mg Ondansetron HCl (Zofran) 4 mg IVPUSH Q8H PRN PRN Reason: Nausea/Vomiting Last Admin: 08/13/19 15:04 Dose: 4 mg Ondansetron HCl (Zofran) 4 mg IVPUSH ONETIME PRN PRN Reason: Nausea/Vomiting Stop: 08/15/19 18:00 Ondansetron HCl (Zofran) Confirm Administered Dose 4 mg .ROUTE .STK-MED ONE Stop: 08/15/19 16:13 Oseltamivir Phosphate (Tamiflu) 75 mg PO BID [facility] Stop: 08/12/19 09:01 Last Admin: 08/12/19 09:24 Dose: 75 mg Propofol (Diprivan 20 Ml) Confirm Administered Dose 200 mg .ROUTE .STK-MED ONE Stop: 08/15/19 12:15 Risperidone (Risperidal) 2 mg PO BEDTIME [facility] Last Admin: 08/15/19 21:36 Dose: Not Given Risperidone (Risperidal) 1 mg PO DAILY [facility] Last Admin: 08/15/19 10:49 Dose: Not Given Rocuronium [place] (Zemuron) Confirm Administered Dose 50 mg .ROUTE .STK-MED ONE Stop: 08/15/19 12:14 Rocuronium [place] (Zemuron) Confirm Administered Dose 50 mg .ROUTE .STK-MED ONE Stop: 08/15/19 16:10 Sodium Chloride (Saline Flush) 10 ml FLUSH ONETIME ONE Stop: 08/11/19 16:42 Last Admin: 08/11/19 16:46 Dose: 10 ml Trazodone HCl (Trazodone) 50 mg PO BEDTIME [facility] Last Admin: 08/15/19 21:50 Dose: Not Given - Exam Wound/Incisions: Healing Well, Dressing Dry and Intact, No Drainage Quality Assessment: Supplemental Oxygen General: Alert, Oriented, Cooperative HEENT: Pupils Equal Lungs: Clear to Auscultation, Normal Respiratory Effort Cardiovascular: Regular Rate, Regular Rhythm, No Murmurs GI/Abdominal Exam: Soft, Non-Tender, No Organomegaly, No Mass, Distended ( slightly) Extremities: Normal Inspection Skin: Warm, Dry, Intact Sepsis Event Note - Evaluation Sepsis Screening Result: No Definite Risk - Focused Exam Vital Signs: Vital Signs Temp Temp Pulse Pulse Resp BP BP 08/18/19 08:00 99.5 F 88 16 101/53 L 08/18/19 05:28 98.1 F 92 16 115/54 L 08/18/19 00:17 98.1 F 93 18 134/63 08/17/19 21:00 Pulse Ox Pulse Ox 08/18/19 08:00 91 L 08/18/19 05:28 91 L 08/18/19 00:17 91 L 08/17/19 21:00 90 L Date Exam was Performed: 08/18/19 Time Exam was Performed: 08:25 - Problem List Review Problem List Initiated/Reviewed/Updated: No - My Orders Last 24 Hours: Active Orders 24 hr Category Date Time Status Consult to Occupational Therapy [OT Evaluation and Cons 08/17/19 08:00 Active Treatment] [CONS] Routine Consult to Physical Therapy [PT Evaluation and Cons 08/17/19 08:00 Active Treatment] [CONS] Routine AA 5%/Calcium/D20W/Lytes [Clinimix E 5/20] 1,000 ml Med 08/17/19 23:00 Active IV TITRATE Albuterol/Ipratropium [DuoNeb 3.0-0.5 MG/3 ML] Med 08/17/19 10:38 Active 3 ml NEB QIDRT PRN Fat Emulsion [Intralipid 20%] 500 ml Med 08/17/19 12:00 Active IV MoWeFr Heparin Sodium Med 08/18/19 09:00 Active 5,000 units SUBCUT Q8H Sodium Chloride 0.9% [Normal Saline] 1,000 ml Med 08/17/19 10:45 Active IV ASDIRECTED Medication Orders Acetaminophen (Tylenol) 650 mg PO Q4H PRN PRN Reason: Pain (Mild 1-3)/fever Last Admin: 08/13/19 09:43 Dose: 650 mg Albuterol/Ipratropium (Duoneb 3.0-0.5 Mg/3 Ml) 3 ml NEB QIDRT PRN PRN Reason: SOB/wheezing Famotidine (Pepcid) 20 mg IVPUSH BEDTIME [facility] Last Admin: 08/17/19 20:33 Dose: 20 mg Admin: 08/16/19 21:57 Dose: 20 mg Haloperidol Lactate (Haldol) 5 mg IVPUSH BEDTIME [facility] Last Admin: 08/17/19 20:30 Dose: 5 mg Admin: 08/16/19 21:57 Dose: 5 mg Haloperidol Lactate (Haldol) 2 mg IVPUSH 0600,1400 [facility] Last Admin: 08/18/19 06:55 Dose: 2 mg Admin: 08/17/19 14:48 Dose: 2 mg Admin: 08/17/19 06:03 Dose: 2 mg Admin: 08/16/19 14:36 Dose: Not Given Heparin Sodium (Porcine) (Heparin Sodium) 5,000 units SUBCUT Q8H [facility] Last Admin: 08/18/19 08:11 Dose: 5,000 units Hydromorphone HCl (Dilaudid) 1 mg IVPUSH Q3H PRN PRN Reason: Pain Last Admin: 08/17/19 14:49 Dose: 1 mg Admin: 08/16/19 18:55 Dose: 1 mg Admin: 08/16/19 15:10 Dose: 1 mg Admin: 08/16/19 08:15 Dose: 1 mg Admin: 08/16/19 00:57 Dose: 1 mg Admin: 08/15/19 21:57 Dose: 1 mg Fat Emulsion Intravenous (Intralipid 20%) 500 mls @ 62.5 mls/hr IV MoWeFr [facility] Last Admin: 08/17/19 12:30 Dose: 62.5 mls/hr Sodium Chloride (Normal Saline) 1,000 mls @ 50 mls/hr IV ASDIRECTED [facility] Last Admin: 08/18/19 08:16 Dose: 50 mls/hr Infusion: 08/18/19 08:16 Dose: 50 mls/hr Admin: 08/17/19 12:31 Dose: 50 mls/hr Amino Ac/Electrol/Dextrose/Calcium (Clinimix E 10/11) 1,000 mls @ 75 mls/hr IV TITRATE [facility] Last Admin: 08/18/19 00:11 Dose: 75 mls/hr Lorazepam (Ativan) 1 mg IVPUSH Q2H PRN PRN Reason: Anxiety Last Admin: 08/16/19 22:14 Dose: 1 mg Admin: 08/16/19 10:26 Dose: 1 mg Admin: 08/16/19 00:58 Dose: 1 mg Nicotine (Habitrol) 21 mg TRDERM DAILY [facility] Last Admin: 08/18/19 08:08 Dose: 21 mg Admin: 08/17/19 08:33 Dose: 21 mg Admin: 08/16/19 09:57 Dose: 21 mg Admin: 08/15/19 10:48 Dose: Not Given Admin: 08/14/19 09:02 Dose: Not Given Admin: 08/13/19 08:47 Dose: 21 mg Admin: 08/12/19 09:24 Dose: 21 mg Admin: 08/11/19 09:39 Dose: 21 mg Admin: 08/10/19 09:23 Dose: 21 mg Admin: 08/09/19 09:23 Dose: 21 mg Admin: 08/08/19 09:45 Dose: 21 mg Benztropine 2mg/2ml (Vial) 0 each IVPUSH BEDTIME [facility] Last Admin: 08/17/19 20:35 Dose: 1 each Admin: 08/16/19 22:01 Dose: 1 each Ondansetron HCl (Zofran) 4 mg IVPUSH Q4H PRN PRN Reason: Nausea/Vomiting Last Admin: 08/18/19 05:33 Dose: 4 mg Admin: 08/18/19 00:20 Dose: 4 mg Admin: 08/17/19 15:51 Dose: 4 mg Admin: 08/13/19 21:01 Dose: 4 mg Pharmacy Consult (Consult To Pharmacy) 0 each .XX DAILY PRN PRN Reason: TPN MONITORING Sodium Chloride (Saline Flush) 10 ml FLUSH ASDIRECTED PRN PRN Reason: Keep Vein Open Last Admin: 08/11/19 16:44 Dose: 10 ml Admin: 08/11/19 16:43 Dose: 10 ml Admin: 08/07/19 17:21 Dose: 10 ml - Plan Plan (Free Text/Narrative):: POD3 s/p ex lap, SANTANA, RUQ cystic mass excision, CVC placement for PSBO and severe protein calorie malnutrition. NGT output is still high and no bowel function yet. Drain output SS - Continue TPN - Continue NPO with NGT - Encourage ambulation - SQH 500U Q8H
[2019-08-18] MEDS: HYDROmorphone 1 MG/ML Syringe IVPUSH PRN ×3 (09:17→17:58)
[2019-08-18] MEDS ORDERED: ZINC IV SCH ×3 (12:00)
[2019-08-18] MEDS ORDERED: COPPER IV SCH ×3 (12:00)
[2019-08-18] MEDS ORDERED: [UNRECOGNIZED DRUG - OTHER] IV SCH ×3 (12:00)
[2019-08-18] MEDS ORDERED: VITAMIN K IV SCH ×3 (12:00)
[2019-08-18] MEDS ORDERED: MVI IV SCH ×3 (12:00)
[2019-08-18] MEDS ORDERED: MANG IV SCH ×3 (12:00)
[2019-08-18] MEDS ORDERED: CHROMIUM IV SCH ×3 (12:00)
[2019-08-18] MEDS ORDERED: Lidocaine 1% 10 ML MDV INJECT ONE (17:00)
--- NOTE | 2019-08-18 17:49 | PCM.SN ---
- Free Text/Narrative Note: Patient's left KYRIE drain had come out this afternoon causing some bleeding. Bleeding stopped with some pressure. patient remained stable. I stitched the drain back with 2-0 Prolene suture. No immediate complication, patient remains stable.
[2019-08-18] MEDS: Famotidine 20 MG/2 ML SDV IVPUSH SCH (20:39)
[2019-08-18] MEDS: BENZTROPINE 2MG/2ML VIAL IVPUSH SCH (20:43)
[2019-08-19] MEDS: Heparin Sodium 5,000 Units/ML Vial SUBCUT SCH ×3 (00:01→16:47)
[2019-08-19] MEDS: HYDROmorphone 1 MG/ML Syringe IVPUSH PRN ×5 (01:26→20:48)
[2019-08-19] MEDS: AA 5%/Calcium/D20W/Lytes 1,000 ML IV SCH ×2 (04:13)
[2019-08-19] MEDS: Sodium Chloride 0.9% 1,000 ML IV SCH (04:15)
[2019-08-19] MEDS: Haloperidol Lactate 5 MG/ML SDV IVPUSH SCH ×3 (05:39→20:44)
--- NOTE | 2019-08-19 07:26 | PCM.PN ---
- General Info Date of Service: 08/19/19 Admission Dx/Problem (Free Text): Admission Diagnosis/Problem Admission Diagnosis/Problem Pneumonia involving left lung Subjective Update: Salvador continues to do well. He has been ambulating with therapies and they have discharged him. Biggest complaint is abdominal pain. Functional Status: Reports: Pain Controlled, Tolerating Diet, Ambulating, Urinating, Incentive Spirometry, Other (acapella ). Denies: New Symptoms - Review of Systems General: Reports: Weakness (improving ). Denies: Fever, Chills HEENT: Reports: No Symptoms. Denies: Headaches, Sore Throat Pulmonary: Reports: No Symptoms. Denies: Shortness of Breath, Cough, Sputum, Wheezing Cardiovascular: Reports: No Symptoms. Denies: Chest Pain, Palpitations, Edema Gastrointestinal: Reports: Abdominal Pain, Flatus, Other (Patient pulled NG tube this AM ). Denies: Nausea, Vomiting Genitourinary: Reports: No Symptoms. Denies: Pain Musculoskeletal: Reports: No Symptoms Skin: Reports: No Symptoms. Denies: Cyanosis Neurological: Reports: Confusion (Baseline Schizophrenia) Psychiatric: Reports: No Symptoms - Patient Data Vitals - Most Recent: Last Vital Signs Temp 97.5 F 08/19/19 05:37 Pulse 86 08/19/19 05:37 Resp 20 08/19/19 05:37 BP 114/93 H 08/19/19 05:37 Pulse Ox 90 L 08/19/19 05:37 Orthostatic Blood Pressure [ 109/60 Standing] Orthostatic Blood Pressure [ 120/69 Sitting] Orthostatic Blood Pressure [ 120/79 Supine] Weight - Most Recent: 130 lb 4.8 oz I&O - Last 24 Hours: Intake & Output 08/18/19 08/19/19 08/19/19 22:59 06:59 14:59 Intake Total 1432 1376 Output Total 750 205 Balance 682 1171 Lab Results Last 24 Hours: Laboratory Results - last 24 hr 08/18/19 08/18/19 08/18/19 Range/Units 11:27 18:36 23:35 Sodium (136-145) mEq/L Potassium (3.5-5.1) mEq/L Chloride (98-107) mEq/L Carbon Dioxide (21-32) mEq/L Anion Gap (5-15) BUN (7-18) mg/dL Creatinine (0.7-1.3) mg/dL Est Cr Clr Drug Dosing mL/min Estimated GFR (MDRD) (>60) mL/min BUN/Creatinine Ratio (14-18) Glucose (80-115) mg/dL POC Glucose 139 H 141 H 126 H (80-115) mg/dL Calcium (8.5-10.1) mg/dL Phosphorus (2.6-4.7) mg/dL Magnesium (1.8-2.4) mg/dl 08/19/19 08/19/19 Range/Units 05:35 05:42 Sodium 142 (136-145) mEq/L Potassium 4.0 (3.5-5.1) mEq/L Chloride 108 H (98-107) mEq/L Carbon Dioxide 27 (21-32) mEq/L Anion Gap 11.0 (5-15) BUN 18 (7-18) mg/dL Creatinine 0.7 (0.7-1.3) mg/dL Est Cr Clr Drug Dosing 82.09 mL/min Estimated GFR (MDRD) > 60 (>60) mL/min BUN/Creatinine Ratio 25.7 H (14-18) Glucose 149 H (80-115) mg/dL POC Glucose 128 H (80-115) mg/dL Calcium 8.0 L (8.5-10.1) mg/dL Phosphorus 3.3 (2.6-4.7) mg/dL Magnesium 1.8 (1.8-2.4) mg/dl Med Orders - Current: Current Medications Acetaminophen (Tylenol) 650 mg PO Q4H PRN PRN Reason: Pain (Mild 1-3)/fever Last Admin: 08/13/19 09:43 Dose: 650 mg Albuterol/Ipratropium (Duoneb 3.0-0.5 Mg/3 Ml) 3 ml NEB QIDRT PRN PRN Reason: SOB/wheezing Famotidine (Pepcid) 20 mg IVPUSH BEDTIME [facility] Last Admin: 08/18/19 20:39 Dose: 20 mg Haloperidol Lactate (Haldol) 5 mg IVPUSH BEDTIME [facility] Last Admin: 08/18/19 20:36 Dose: 5 mg Haloperidol Lactate (Haldol) 2 mg IVPUSH 0600,1400 [facility] Last Admin: 08/19/19 05:39 Dose: 2 mg Heparin Sodium (Porcine) (Heparin Sodium) 5,000 units SUBCUT Q8H [facility] Last Admin: 08/19/19 00:01 Dose: 5,000 units Hydromorphone HCl (Dilaudid) 1 mg IVPUSH Q3H PRN PRN Reason: Pain Last Admin: 08/19/19 06:05 Dose: 1 mg Fat Emulsion Intravenous (Intralipid 20%) 500 mls @ 62.5 mls/hr IV MoWeFr [facility] Last Admin: 08/17/19 12:30 Dose: 62.5 mls/hr Sodium Chloride (Normal Saline) 1,000 mls @ 50 mls/hr IV ASDIRECTED [facility] Last Admin: 08/19/19 04:15 Dose: 50 mls/hr Amino Ac/Electrol/Dextrose/Calcium (Clinimix E 10/11) 1,000 mls @ 75 mls/hr IV TITRATE [facility] Last Admin: 08/19/19 04:13 Dose: 75 mls/hr Lorazepam (Ativan) 1 mg IVPUSH Q2H PRN PRN Reason: Anxiety Last Admin: 08/16/19 22:14 Dose: 1 mg Miscellaneous Information (Remove Patch) 1 ea TRDERM DAILY [facility] Last Admin: 08/18/19 11:31 Dose: 1 ea Nicotine (Habitrol) 21 mg TRDERM DAILY [facility] Last Admin: 08/18/19 08:08 Dose: 21 mg Benztropine 2mg/2ml (Vial) 0 each IVPUSH BEDTIME [facility] Last Admin: 08/18/19 20:43 Dose: 1 each Ondansetron HCl (Zofran) 4 mg IVPUSH Q4H PRN PRN Reason: Nausea/Vomiting Last Admin: 08/18/19 12:30 Dose: 4 mg Pharmacy Consult (Consult To Pharmacy) 0 each .XX DAILY PRN PRN Reason: TPN MONITORING Sodium Chloride (Saline Flush) 10 ml FLUSH ASDIRECTED PRN PRN Reason: Keep Vein Open Last Admin: 08/11/19 16:44 Dose: 10 ml Discontinued Medications Albuterol (Proventil Neb Soln) 2.5 mg NEB ONETIME PRN PRN Reason: bronchodilation Stop: 08/15/19 18:00 Albuterol/Ipratropium (Duoneb 3.0-0.5 Mg/3 Ml) 3 ml NEB QIDRT [facility] Last Admin: 08/17/19 09:10 Dose: 3 ml Azithromycin (Zithromax) 250 mg PO BEDTIME [facility] Last Admin: 08/11/19 21:06 Dose: 250 mg Benzonatate (Tessalon Perles) 100 mg PO BID [facility] Last Admin: 08/15/19 21:36 Dose: Not Given Benztropine Mesylate (Cogentin) 1 mg PO BEDTIME [facility] Last Admin: 08/15/19 21:37 Dose: Not Given Benztropine Mesylate (Cogentin) 1 mg IVPUSH BEDTIME [facility] Cefazolin Sodium (Ancef) Confirm Administered Dose 2 gm .ROUTE .STK-MED ONE Stop: 08/15/19 15:23 Cefazolin Sodium (Ancef) Confirm Administered Dose 2 gm .ROUTE .STK-MED ONE Stop: 08/15/19 18:13 Cefdinir (Omnicef) 300 mg PO BID [facility] Last Admin: 08/14/19 08:58 Dose: 300 mg Ceftriaxone Sodium (Rocephin) Confirm Administered Dose 2 gm IV .STK-MED ONE Stop: 08/07/19 19:45 Last Admin: 08/07/19 19:51 Dose: Not Given Diatrizoate Meglum/Diatrizoate Sod (Gastrografin 37%) 90 ml PO ONETIME ONE Stop: 08/11/19 16:42 Last Admin: 08/11/19 16:43 Dose: 90 ml Ephedrine Sulfate (Ephedrine Sulfate) 5 mg IVPUSH ASDIRECTED PRN PRN Reason: Hypotension Stop: 08/15/19 18:00 Fentanyl (Sublimaze) Confirm Administered Dose 250 mcg .ROUTE .STK-MED ONE Stop: 08/15/19 12:16 Fentanyl (Sublimaze) 50 mcg IVPUSH Q5M PRN PRN Reason: Pain Stop: 08/15/19 18:00 Fentanyl (Sublimaze) Confirm Administered Dose 100 mcg .ROUTE .STK-MED ONE Stop: 08/15/19 17:11 Glycopyrrolate () Confirm Administered Dose 1 mg .ROUTE .STK-MED ONE Stop: 08/15/19 16:12 Guaifenesin (Mucinex) 600 mg PO BID [facility] Last Admin: 08/15/19 21:37 Dose: Not Given Guaifenesin (Mucinex) 600 mg PO BID [facility] Last Admin: 08/08/19 12:51 Dose: Not Given Haloperidol Lactate (Haldol) 5 mg IVPUSH BEDTIME [facility] Last Admin: 08/15/19 21:51 Dose: 5 mg Haloperidol Lactate (Haldol) 5 mg IV ONETIME PRN PRN Reason: Other Stop: 08/16/19 08:00 Haloperidol Lactate (Haldol) 5 mg IVPUSH Q8H [facility] Last Admin: 08/16/19 09:59 Dose: Not Given Haloperidol Lactate (Haldol) 2 mg IVPUSH ONETIME ONE Stop: 08/16/19 09:01 Last Admin: 08/16/19 09:57 Dose: 2 mg Hydromorphone HCl (Dilaudid) Confirm Administered Dose 0.5 mg .ROUTE .STK-MED ONE Stop: 08/15/19 15:22 Hydromorphone HCl (Dilaudid) 0.5 mg IVPUSH Q15M PRN PRN Reason: Pain (severe 7-10) Stop: 08/15/19 18:00 Hydromorphone HCl (Dilaudid) Confirm Administered Dose 0.5 mg .ROUTE .STK-MED ONE Stop: 08/15/19 16:18 Hydromorphone HCl (Dilaudid) Confirm Administered Dose 0.5 mg .ROUTE .STK-MED ONE Stop: 08/15/19 18:43 Hydromorphone HCl (Dilaudid) 0.5 mg IVPUSH ONETIME ONE Stop: 08/15/19 20:51 Last Admin: 08/15/19 20:59 Dose: 0.5 mg Hydromorphone HCl (Dilaudid) Confirm Administered Dose 0.5 mg .ROUTE .STK-MED ONE Stop: 08/15/19 21:00 Last Admin: 08/15/19 21:34 Dose: Not Given Hydromorphone HCl (Dilaudid) 0.5 mg IVPUSH Q3H PRN PRN Reason: Abdominal Pain Sodium Chloride (Normal Saline) 1,000 mls @ [facility] Admin: 08/08/19 06:02 Dose: 150 mls/hr Ceftriaxone Sodium 2 gm/ (Sodium Chloride) 100 mls @ 200 mls/hr IV ONETIME ONE Stop: 08/07/19 20:00 Last Admin: 08/07/19 19:47 Dose: Not Given Magnesium Sulfate 2 gm/ Premix 50 mls @ 25 mls/hr IV ONETIME ONE Stop: 08/07/19 21:42 Last Admin: 08/07/19 20:24 Dose: 25 mls/hr Ceftriaxone Sodium 2 gm/ (Sodium Chloride) 100 mls @ 200 mls/hr IV Q24H [facility] Stop: 08/07/19 20:15 Last Admin: 08/07/19 19:49 Dose: 200 mls/hr Sodium Chloride (Normal Saline) Confirm Administered Dose 100 mls @ as directed .ROUTE .[facility] ONE Stop: 08/07/19 19:45 Last Admin: 08/07/19 19:51 Dose: Not Given Azithromycin 500 mg/ Sodium (Chloride) 250 mls @ 250 mls/hr IV Q24H [facility] Last Admin: 08/10/19 22:08 Dose: 250 mls/hr Ceftriaxone Sodium 2 gm/ (Sodium Chloride) 100 mls @ 200 mls/hr IV Q24H [facility] Last Admin: 08/10/19 21:25 Dose: 200 mls/hr Sodium Chloride (Normal Saline) 1,000 mls @ 75 mls/hr IV ASDIRECTED [facility] Sodium Phosphate 30 mmole/ (Sodium Chloride) 260 mls @ 130 mls/hr IV Q2H [facility] Stop: 08/10/19 15:59 Last Admin: 08/10/19 15:12 Dose: 130 mls/hr Magnesium Sulfate 2 gm/ Premix 50 mls @ 25 mls/hr IV ONETIME ONE Stop: 08/11/19 11:08 Last Admin: 08/11/19 09:38 Dose: 25 mls/hr Sodium Chloride (Normal Saline) 1,000 mls @ 75 mls/hr IV ASDIRECTED [facility] Last Admin: 08/12/19 09:24 Dose: 75 mls/hr Sodium Chloride (Normal Saline) Confirm Administered Dose 1,000 mls @ as directed .ROUTE .[facility] ONE Stop: 08/11/19 17:34 Last Admin: 08/11/19 17:43 Dose: Not Given Dextrose/Sodium Chloride (Dextrose 5%-Normal Saline) 1,000 mls @ 100 mls/hr IV ASDIRECTED [facility] Last Infusion: 08/13/19 12:35 Dose: 50 mls/hr Dextrose/Sodium Chloride (Dextrose 5%-Normal Saline) 1,000 mls @ 50 mls/hr IV ASDIRECTED [facility] Dextrose/Sodium Chloride (Dextrose 5%-Normal Saline) 1,000 mls @ 125 mls/hr IV ASDIRECTED [facility] Last Admin: 08/16/19 01:04 Dose: 125 mls/hr Lidocaine HCl (Xylocaine-Mpf 1%) Confirm Administered Dose 4 mls @ as directed .ROUTE .[facility] ONE Stop: 08/15/19 14:43 Lactated Ringer's (Ringers, Lactated) Confirm Administered Dose 1,000 mls @ as directed .ROUTE .[facility] ONE Stop: 08/15/19 15:18 Lactated Ringer's (Ringers, Lactated) Confirm Administered Dose 1,000 mls @ as directed .ROUTE .[facility] ONE Stop: 08/15/19 15:18 Phenylephrine HCl 1 mg/ Sodium (Chloride) 10.1 mls @ 1 mls/sec IV TITRATE [facility]; Protocol Stop: 08/15/19 18:00 Lactated Ringer's (Ringers, Lactated) Confirm Administered Dose 1,000 mls @ as directed .ROUTE .[facility] ONE Stop: 08/15/19 15:57 Lactated Ringer's (Ringers, Lactated) Confirm Administered Dose 1,000 mls @ as directed .ROUTE .[facility] ONE Stop: 08/15/19 18:09 Magnesium Sulfate 2 gm/ Premix 50 mls @ 25 mls/hr IV ONETIME ONE Stop: 08/16/19 10:10 Last Admin: 08/16/19 08:45 Dose: Not Given Magnesium Sulfate 4 gm/ Premix 50 mls @ 12.5 mls/hr IV ONETIME ONE Stop: 08/16/19 12:28 Last Admin: 08/16/19 08:46 Dose: 12.5 mls/hr Dextrose/Sodium Chloride (Dextrose 5%-Normal Saline) 1,000 mls @ 100 mls/hr IV ASDIRECTED [facility] Stop: 08/16/19 13:00 Last Infusion: 08/16/19 12:20 Dose: 20 mls/hr Dextrose/Sodium Chloride (Dextrose 5%-Normal Saline) 1,000 mls @ 20 mls/hr IV ASDIRECTED [facility] Last Admin: 08/17/19 06:33 Dose: 20 mls/hr Multivitamins/Minerals 10 ml/Chromium/Copper/Manganese/Zinc 1 ml/ Amino Ac/ Electrol/Dextrose/Calcium 1,011 mls @ 45 mls/hr IV ONETIME ONE Stop: 08/17/19 11:27 Last Admin: 08/16/19 13:15 Dose: 45 mls/hr Adjust Tpn Rate 720 mls @ 60 mls/hr .XX ONETIME ONE Stop: 08/17/19 12:59 Last Admin: 08/17/19 00:56 Dose: 60 mls/hr Multivitamins/Minerals 10 ml/Chromium/Copper/Manganese/Zinc 1 ml/ Amino Ac/ Electrol/Dextrose/Calcium 1,011 mls @ 60 mls/hr IV TITRATE [facility] Stop: 08/18/19 01:50 Last Admin: 08/17/19 08:52 Dose: 60 mls/hr Adjust Tpn Rate 720 mls @ 75 mls/hr .XX ONETIME ONE Stop: 08/17/19 22:35 Last Admin: 08/17/19 14:13 Dose: Not Given Multivitamins/Minerals 10 ml/Chromium/Copper/Manganese/Zinc 1 ml/ Amino Ac/ Electrol/Dextrose/Calcium 1,011 mls @ 75 mls/hr IV TITRATE [facility] Stop: 08/19/19 01:29 Last Admin: 08/18/19 14:35 Dose: 75 mls/hr Influenza Virus Vaccine (Pharmacy To Dose - Influenza Vaccine) 1 each IM ONETIME ONE Stop: 08/07/19 22:46 Influenza Virus Vaccine (Fluzone High-Dose Syringe) 180 mcg IM .ONCE ONE Stop: 08/08/19 10:01 Iopamidol (Isovue-300 (61%)) 100 ml IVPUSH ONETIME ONE Stop: 08/11/19 16:42 Last Admin: 08/11/19 16:44 Dose: 100 ml Ipratropium [place] (Atrovent) 0.5 mg NEB Q4HRRT [facility] Last Admin: 08/11/19 13:29 Dose: 0.5 mg Ketamine HCl (Ketalar) Confirm Administered Dose 500 mg .ROUTE .STK-MED ONE Stop: 08/15/19 15:35 Ketorolac Tromethamine (Toradol) Confirm Administered Dose 30 mg .ROUTE .STK- MED ONE Stop: 08/15/19 18:40 Ketorolac Tromethamine (Toradol) 15 mg IVPUSH Q6H PRN PRN Reason: Pain Stop: 08/18/19 00:31 Last Admin: 08/17/19 20:26 Dose: 15 mg Lidocaine HCl (Xylocaine 1%) Confirm Administered Dose 50 ml .ROUTE .STK-MED ONE Stop: 08/15/19 07:11 Last Admin: 08/15/19 15:09 Dose: 4.5 ml Lidocaine HCl (Xylocaine 1%) Confirm Administered Dose 50 ml .ROUTE .STK-MED ONE Stop: 08/15/19 11:28 Lidocaine HCl (Xylocaine 1%) 20 ml INJECT ONETIME ONE Stop: 08/18/19 17:01 Last Admin: 08/18/19 17:49 Dose: 10 ml Magnesium Hydroxide (Milk Of Magnesia) 30 ml PO ONETIME ONE Stop: 08/14/19 07:43 Last Admin: 08/14/19 08:58 Dose: 30 ml Methadone HCl (Methadone) 5 mg PO BID [facility] Last Admin: 08/15/19 21:37 Dose: Not Given Midazolam HCl (Versed 1 Mg/Ml) Confirm Administered Dose 2 mg .ROUTE .STK-MED ONE Stop: 08/15/19 12:15 Miscellaneous Medication (Phenylephrine 1 Mg/10 Ml-Ns) Confirm Administered Dose 1 mg IV .STK-MED ONE Stop: 08/15/19 15:05 Miscellaneous Medication (Phenylephrine 1 Mg/10 Ml-Ns) Confirm Administered Dose 1 mg IV .STK-MED ONE Stop: 08/15/19 16:18 Miscellaneous Medication (Phenylephrine 1 Mg/10 Ml-Ns) Confirm Administered Dose 1 mg IV .STK-MED ONE Stop: 08/15/19 17:47 Miscellaneous Medication (Phenylephrine 1 Mg/10 Ml-Ns) Confirm Administered Dose 1 mg IV .STK-MED ONE Stop: 08/15/19 18:34 Neostigmine Methylsulfate (Neostigmine Methylsulfate) Confirm Administered Dose 5 mg .ROUTE .STK-MED ONE Stop: 08/15/19 16:12 Ondansetron HCl (Zofran) 4 mg IVPUSH ONETIME ONE Stop: 08/07/19 16:51 Last Admin: 08/07/19 17:20 Dose: 4 mg Ondansetron HCl (Zofran) 4 mg IVPUSH ONETIME ONE Stop: 08/07/19 19:12 Last Admin: 08/07/19 19:51 Dose: 4 mg Ondansetron HCl (Zofran Odt) 4 mg PO Q6H PRN PRN Reason: nausea, able to take PO Last Admin: 08/13/19 09:44 Dose: 4 mg Ondansetron HCl (Zofran) 4 mg IV Q6H [facility] Last Admin: 08/08/19 06:03 Dose: Not Given Ondansetron HCl (Zofran) 4 mg IV Q6H [facility] Last Admin: 08/08/19 12:40 Dose: 4 mg Ondansetron HCl (Zofran) 4 mg IVPUSH Q8H PRN PRN Reason: Nausea/Vomiting Last Admin: 08/13/19 15:04 Dose: 4 mg Ondansetron HCl (Zofran) 4 mg IVPUSH ONETIME PRN PRN Reason: Nausea/Vomiting Stop: 08/15/19 18:00 Ondansetron HCl (Zofran) Confirm Administered Dose 4 mg .ROUTE .STK-MED ONE Stop: 08/15/19 16:13 Oseltamivir Phosphate (Tamiflu) 75 mg PO BID [facility] Stop: 08/12/19 09:01 Last Admin: 08/12/19 09:24 Dose: 75 mg Propofol (Diprivan 20 Ml) Confirm Administered Dose 200 mg .ROUTE .STK-MED ONE Stop: 08/15/19 12:15 Risperidone (Risperidal) 2 mg PO BEDTIME [facility] Last Admin: 08/15/19 21:36 Dose: Not Given Risperidone (Risperidal) 1 mg PO DAILY [facility] Last Admin: 08/15/19 10:49 Dose: Not Given Rocuronium [place] (Zemuron) Confirm Administered Dose 50 mg .ROUTE .STK-MED ONE Stop: 08/15/19 12:14 Rocuronium [place] (Zemuron) Confirm Administered Dose 50 mg .ROUTE .STK-MED ONE Stop: 08/15/19 16:10 Sodium Chloride (Saline Flush) 10 ml FLUSH ONETIME ONE Stop: 08/11/19 16:42 Last Admin: 08/11/19 16:46 Dose: 10 ml Trazodone HCl (Trazodone) 50 mg PO BEDTIME [facility] Last Admin: 08/15/19 21:50 Dose: Not Given - Exam Quality Assessment: DVT Prophylaxis General: Alert, Cooperative, No Acute Distress HEENT: Pupils Equal, Pupils Reactive, Mucous Membr. Moist/[place] Neck: Supple, Trachea Midline Lungs: Clear to Auscultation, Normal Respiratory Effort, Decreased Breath Sounds Cardiovascular: Regular Rate, Regular Rhythm GI/Abdominal Exam: Normal Bowel Sounds, Soft, Non-Tender, No Distention (Male) Exam: Deferred Back Exam: Normal Inspection, Full Range of Motion Extremities: Normal Inspection, Normal Range of Motion, Non-Tender, No Pedal Edema, Normal Capillary Refill Skin: Warm, Dry, Intact Neurological: No New Focal Deficit Psy/Mental Status: Alert, Normal Affect, Normal Mood Sepsis Event Note - Evaluation Sepsis Screening Result: No Definite Risk - Focused Exam Vital Signs: Vital Signs Temp Pulse Resp BP Pulse Ox 08/19/19 05:37 97.5 F 86 20 114/93 H 90 L 08/18/19 23:31 98.4 F 81 18 132/68 91 L 08/18/19 20:34 98.1 F 85 20 138/66 92 L Date Exam was Performed: 08/19/19 Time Exam was Performed: 10:58 - Problem List & Annotations (1) Acute hypoxemic respiratory failure SNOMED Code(s): 194475508 Code(s): J96.01 - ACUTE RESPIRATORY FAILURE WITH HYPOXIA Status: Acute Priority: High Current Visit: Yes (2) Chronic pain SNOMED Code(s): 71891279 Code(s): G89.29 - OTHER CHRONIC PAIN Status: Chronic Priority: Medium Current Visit: Yes Qualifiers: Chronic pain type: other chronic pain Qualified Code(s): G89.29 - Other chronic pain (3) Hypoalbuminemia SNOMED Code(s): 908491633 Code(s): E88.09 - OTH DISORDERS OF PLASMA-PROTEIN METABOLISM, NEC Status: Acute Priority: High Current Visit: Yes (4) Hypomagnesemia SNOMED Code(s): 610491629 Code(s): E83.42 - HYPOMAGNESEMIA Status: Resolved Priority: High Current Visit: Yes (5) Hyponatremia SNOMED Code(s): 26390815 Code(s): E87.1 - HYPO-OSMOLALITY AND HYPONATREMIA Status: Resolved Priority: High Current Visit: Yes (6) Hypophosphatemia SNOMED Code(s): 6578044 Code(s): E83.39 - OTHER DISORDERS OF PHOSPHORUS METABOLISM Status: Resolved Priority: High Current Visit: Yes (7) Intractable nausea and vomiting SNOMED Code(s): 577210114 Code(s): R11.2 - NAUSEA WITH VOMITING, UNSPECIFIED Status: Resolved Priority: High Current Visit: Yes (8) Leukocytosis SNOMED Code(s): 178523532, 238738410 Code(s): D72.829 - ELEVATED WHITE BLOOD CELL COUNT, UNSPECIFIED Status: Acute Priority: High Current Visit: Yes Qualifiers: Leukocytosis type: unspecified Qualified Code(s): D72.829 - Elevated white blood cell count, unspecified (9) Lung nodule SNOMED Code(s): 563496407 Code(s): R91.1 - SOLITARY PULMONARY NODULE Status: Acute Priority: High Current Visit: Yes (10) Macrocytosis without anemia SNOMED Code(s): 799323288 Code(s): D75.89 - OTHER SPECIFIED DISEASES OF BLOOD AND BLOOD-FORMING ORGANS Status: Acute Priority: High Current Visit: Yes (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 Code(s): 90472095, 170152638 Code(s): F11.20 - OPIOID DEPENDENCE, UNCOMPLICATED Status: Chronic Priority: Medium Current Visit: Yes (12) Pneumonia SNOMED Code(s): 280953669 Code(s): J18.9 - PNEUMONIA, UNSPECIFIED ORGANISM Status: Acute Priority: High Current Visit: Yes Qualifiers: Pneumonia type: due to unspecified organism Laterality: unspecified laterality Lung location: unspecified part of lung Qualified Code(s): J18.9 - Pneumonia, unspecified organism (13) Productive cough SNOMED Code(s): 56033311, 615864474, 097795643 Code(s): R05 - COUGH Status: Acute Priority: High Current Visit: Yes (14) Schizophrenia SNOMED Code(s): 46495936 Code(s): F20.9 - SCHIZOPHRENIA, UNSPECIFIED Status: Chronic Priority: Medium Current Visit: Yes Qualifiers: Schizophrenia type: unspecified Qualified Code(s): F20.9 - Schizophrenia, unspecified (15) Smoker SNOMED Code(s): 19600625 Code(s): F17.200 - NICOTINE DEPENDENCE, UNSPECIFIED, UNCOMPLICATED Status: Chronic Priority: Medium Current Visit: Yes (16) Tachycardia SNOMED Code(s): 6274154 Code(s): R00.0 - TACHYCARDIA, UNSPECIFIED Status: Resolved Priority: High Current Visit: Yes (17) Small bowel obstruction SNOMED Code(s): 936748978 Code(s): K56.609 - UNSP INTESTNL OBST, UNSP TO PARTIAL VERSUS COMPLETE OBST Status: Acute Priority: High Current Visit: Yes (18) Laparoscopic surgical procedure converted to open procedure SNOMED Code(s): 037106984 Code(s): Z53.31 - LAPAROSCOPIC SURGICAL PROCEDURE CONVERTED TO OPEN PROCEDURE Status: Acute Priority: High Current Visit: Yes (19) S/P laparotomy SNOMED Code(s): 386511495, 512183297, 350833400 Code(s): Z98.890 - OTHER SPECIFIED POSTPROCEDURAL STATES Status: Acute Priority: High Current Visit: Yes - Problem List Review Problem List Initiated/Reviewed/Updated: Yes - Plan Plan:: Postop day 3 Exploratory laparotomy, extensive lysis of adhesions, liver cyst excision, CVC placement. Patient is doing well. Postop ileus. Active bowel sounds Reports belching and flatus Plan - Continue TPN and lipids - Dr. Egan managing pain and TPN co-managed with dietary and pharmacy - IV fluids as ordered SBO -post exploratory open laparotomy with Dr. Egan Initially presented with intractable nausea and vomiting to ED Has been stable since admission, vomited x1 on 08/11/19 after drinking coffee Tender knob in RUQ noted on physical exam - not gallbladder, calcified mass on CT. Patient reports chronic since [address] scan Multiple adhesions and right upper quadrant mass excised. PLAN - NG tube pulled by patient - Dr. Egan ok'd to keep out - Strict NPO - Monitor blood sugars - Frequent ambulation Pneumonia -clinically resolved Acute hypoxemic respiratory failure -resolved Emphysema Chronic cough, acutely worsening in past week Associated with fever - none on floor CXR with infiltrate in posterior lobes [employer] evaluation - regular diet, thin liquids PLAN - Completed azithromycin, Tamiflu and Rocephin - Atrovent q4h PRN - Incentive spirometer/Acapella - ABG as needed - Goal SatO2 > 88% Lung nodule, right lung Active Smoker Smokes 2/4ppd > 40y Stable lung nodule noted on CT exam 08/11/19 PLAN - Nicotine patch Schizophrenia Home management with Trazodone, Risperdal and Benztropine PLAN -Patient is strict n.p.o. and on oral Risperdal. Will transition to Haldol and Ativan. -Transition all meds to IV as able. Chronic pain Methadone maintenance therapy patient Denies any current pain PLAN -Pain management per Dr. Egan Muscle wasting Hypoalbuminemia Macrocytosis without anemia Significant muscle wasting Vitamin B12 level and folic acid level WNL Pre-albumin low Follow electrolytes closely PROPHYLAXIS DVT- compression stockings, Heparin CODE STATUS: FULL CODE LOS >96 HRS due to exploratory laparotomy, resulting ileus, awaiting return of bowel function, IV fluids/nutrition.
--- NOTE | 2019-08-19 08:14 | PCM.SURGPN ---
- General Info Date of Service: 08/19/19 Date of Surgery/Procedure: 08/15/19 (Ex lap, SANTANA, excision of RUQ mass, CVC placement) POD#: 4 Post-Op Diagnosis: Small bowel obstruction, severe protein calorie malnutrition Functional Status: Reports: Pain Controlled, Ambulating, Urinating, Other (NGT fell out this morning. NGT output is down now to 850 from 1800 yesterday, no nausea or vomiting. Patient is otherwise stable. Unsure is passing flatus, no BMs yet) - Review of Systems General: Reports: No Symptoms HEENT: Reports: No Symptoms Pulmonary: Reports: No Symptoms Cardiovascular: Reports: No Symptoms Gastrointestinal: Reports: No Symptoms Genitourinary: Reports: No Symptoms - Patient Data Vitals - Most Recent: Last Vital Signs Temp 97.5 F 08/19/19 05:37 Pulse 86 08/19/19 05:37 Resp 20 08/19/19 05:37 BP 114/93 H 08/19/19 05:37 Pulse Ox 90 L 08/19/19 05:37 Orthostatic Blood Pressure [ 109/60 Standing] Orthostatic Blood Pressure [ 120/69 Sitting] Orthostatic Blood Pressure [ 120/79 Supine] Weight - Most Recent: 59.103 kg I&O - Last 24 Hours: Intake & Output 08/18/19 08/19/19 08/19/19 22:59 06:59 14:59 Intake Total 1432 1376 Output Total 750 205 Balance 682 1171 Lab Results Last 24 Hrs: Laboratory Results - last 24 hr 08/18/19 08/18/19 08/18/19 Range/Units 11:27 18:36 23:35 Sodium (136-145) mEq/L Potassium (3.5-5.1) mEq/L Chloride (98-107) mEq/L Carbon Dioxide (21-32) mEq/L Anion Gap (5-15) BUN (7-18) mg/dL Creatinine (0.7-1.3) mg/dL Est Cr Clr Drug Dosing mL/min Estimated GFR (MDRD) (>60) mL/min BUN/Creatinine Ratio (14-18) Glucose (80-115) mg/dL POC Glucose 139 H 141 H 126 H (80-115) mg/dL Calcium (8.5-10.1) mg/dL Phosphorus (2.6-4.7) mg/dL Magnesium (1.8-2.4) mg/dl 08/19/19 08/19/19 Range/Units 05:35 05:42 Sodium 142 (136-145) mEq/L Potassium 4.0 (3.5-5.1) mEq/L Chloride 108 H (98-107) mEq/L Carbon Dioxide 27 (21-32) mEq/L Anion Gap 11.0 (5-15) BUN 18 (7-18) mg/dL Creatinine 0.7 (0.7-1.3) mg/dL Est Cr Clr Drug Dosing 82.09 mL/min Estimated GFR (MDRD) > 60 (>60) mL/min BUN/Creatinine Ratio 25.7 H (14-18) Glucose 149 H (80-115) mg/dL POC Glucose 128 H (80-115) mg/dL Calcium 8.0 L (8.5-10.1) mg/dL Phosphorus 3.3 (2.6-4.7) mg/dL Magnesium 1.8 (1.8-2.4) mg/dl Med Orders - Current: Current Medications Acetaminophen (Tylenol) 650 mg PO Q4H PRN PRN Reason: Pain (Mild 1-3)/fever Last Admin: 08/13/19 09:43 Dose: 650 mg Albuterol/Ipratropium (Duoneb 3.0-0.5 Mg/3 Ml) 3 ml NEB QIDRT PRN PRN Reason: SOB/wheezing Famotidine (Pepcid) 20 mg IVPUSH BEDTIME [facility] Last Admin: 08/18/19 20:39 Dose: 20 mg Haloperidol Lactate (Haldol) 5 mg IVPUSH BEDTIME [facility] Last Admin: 08/18/19 20:36 Dose: 5 mg Haloperidol Lactate (Haldol) 2 mg IVPUSH 0600,1400 [facility] Last Admin: 08/19/19 05:39 Dose: 2 mg Heparin Sodium (Porcine) (Heparin Sodium) 5,000 units SUBCUT Q8H [facility] Last Admin: 08/19/19 00:01 Dose: 5,000 units Hydromorphone HCl (Dilaudid) 1 mg IVPUSH Q3H PRN PRN Reason: Pain Last Admin: 08/19/19 06:05 Dose: 1 mg Fat Emulsion Intravenous (Intralipid 20%) 500 mls @ 62.5 mls/hr IV MoWeFr [facility] Last Admin: 08/17/19 12:30 Dose: 62.5 mls/hr Sodium Chloride (Normal Saline) 1,000 mls @ 50 mls/hr IV ASDIRECTED [facility] Last Admin: 08/19/19 04:15 Dose: 50 mls/hr Amino Ac/Electrol/Dextrose/Calcium (Clinimix E 10/11) 1,000 mls @ 75 mls/hr IV TITRATE [facility] Last Admin: 08/19/19 04:13 Dose: 75 mls/hr Lorazepam (Ativan) 1 mg IVPUSH Q2H PRN PRN Reason: Anxiety Last Admin: 08/16/19 22:14 Dose: 1 mg Miscellaneous Information (Remove Patch) 1 ea TRDERM DAILY [facility] Last Admin: 08/18/19 11:31 Dose: 1 ea Nicotine (Habitrol) 21 mg TRDERM DAILY [facility] Last Admin: 08/18/19 08:08 Dose: 21 mg Benztropine 2mg/2ml (Vial) 0 each IVPUSH BEDTIME [facility] Last Admin: 08/18/19 20:43 Dose: 1 each Ondansetron HCl (Zofran) 4 mg IVPUSH Q4H PRN PRN Reason: Nausea/Vomiting Last Admin: 08/18/19 12:30 Dose: 4 mg Pharmacy Consult (Consult To Pharmacy) 0 each .XX DAILY PRN PRN Reason: TPN MONITORING Sodium Chloride (Saline Flush) 10 ml FLUSH ASDIRECTED PRN PRN Reason: Keep Vein Open Last Admin: 08/11/19 16:44 Dose: 10 ml Discontinued Medications Albuterol (Proventil Neb Soln) 2.5 mg NEB ONETIME PRN PRN Reason: bronchodilation Stop: 08/15/19 18:00 Albuterol/Ipratropium (Duoneb 3.0-0.5 Mg/3 Ml) 3 ml NEB QIDRT [facility] Last Admin: 08/17/19 09:10 Dose: 3 ml Azithromycin (Zithromax) 250 mg PO BEDTIME [facility] Last Admin: 08/11/19 21:06 Dose: 250 mg Benzonatate (Tessalon Perles) 100 mg PO BID [facility] Last Admin: 08/15/19 21:36 Dose: Not Given Benztropine Mesylate (Cogentin) 1 mg PO BEDTIME [facility] Last Admin: 08/15/19 21:37 Dose: Not Given Benztropine Mesylate (Cogentin) 1 mg IVPUSH BEDTIME [facility] Cefazolin Sodium (Ancef) Confirm Administered Dose 2 gm .ROUTE .STK-MED ONE Stop: 08/15/19 15:23 Cefazolin Sodium (Ancef) Confirm Administered Dose 2 gm .ROUTE .STK-MED ONE Stop: 08/15/19 18:13 Cefdinir (Omnicef) 300 mg PO BID [facility] Last Admin: 08/14/19 08:58 Dose: 300 mg Ceftriaxone Sodium (Rocephin) Confirm Administered Dose 2 gm IV .STK-MED ONE Stop: 08/07/19 19:45 Last Admin: 08/07/19 19:51 Dose: Not Given Diatrizoate Meglum/Diatrizoate Sod (Gastrografin 37%) 90 ml PO ONETIME ONE Stop: 08/11/19 16:42 Last Admin: 08/11/19 16:43 Dose: 90 ml Ephedrine Sulfate (Ephedrine Sulfate) 5 mg IVPUSH ASDIRECTED PRN PRN Reason: Hypotension Stop: 08/15/19 18:00 Fentanyl (Sublimaze) Confirm Administered Dose 250 mcg .ROUTE .STK-MED ONE Stop: 08/15/19 12:16 Fentanyl (Sublimaze) 50 mcg IVPUSH Q5M PRN PRN Reason: Pain Stop: 08/15/19 18:00 Fentanyl (Sublimaze) Confirm Administered Dose 100 mcg .ROUTE .STK-MED ONE Stop: 08/15/19 17:11 Glycopyrrolate () Confirm Administered Dose 1 mg .ROUTE .STK-MED ONE Stop: 08/15/19 16:12 Guaifenesin (Mucinex) 600 mg PO BID [facility] Last Admin: 08/15/19 21:37 Dose: Not Given Guaifenesin (Mucinex) 600 mg PO BID [facility] Last Admin: 08/08/19 12:51 Dose: Not Given Haloperidol Lactate (Haldol) 5 mg IVPUSH BEDTIME [facility] Last Admin: 08/15/19 21:51 Dose: 5 mg Haloperidol Lactate (Haldol) 5 mg IV ONETIME PRN PRN Reason: Other Stop: 08/16/19 08:00 Haloperidol Lactate (Haldol) 5 mg IVPUSH Q8H [facility] Last Admin: 08/16/19 09:59 Dose: Not Given Haloperidol Lactate (Haldol) 2 mg IVPUSH ONETIME ONE Stop: 08/16/19 09:01 Last Admin: 08/16/19 09:57 Dose: 2 mg Hydromorphone HCl (Dilaudid) Confirm Administered Dose 0.5 mg .ROUTE .STK-MED ONE Stop: 08/15/19 15:22 Hydromorphone HCl (Dilaudid) 0.5 mg IVPUSH Q15M PRN PRN Reason: Pain (severe 7-10) Stop: 08/15/19 18:00 Hydromorphone HCl (Dilaudid) Confirm Administered Dose 0.5 mg .ROUTE .STK-MED ONE Stop: 08/15/19 16:18 Hydromorphone HCl (Dilaudid) Confirm Administered Dose 0.5 mg .ROUTE .STK-MED ONE Stop: 08/15/19 18:43 Hydromorphone HCl (Dilaudid) 0.5 mg IVPUSH ONETIME ONE Stop: 08/15/19 20:51 Last Admin: 08/15/19 20:59 Dose: 0.5 mg Hydromorphone HCl (Dilaudid) Confirm Administered Dose 0.5 mg .ROUTE .STK-MED ONE Stop: 08/15/19 21:00 Last Admin: 08/15/19 21:34 Dose: Not Given Hydromorphone HCl (Dilaudid) 0.5 mg IVPUSH Q3H PRN PRN Reason: Abdominal Pain Sodium Chloride (Normal Saline) 1,000 mls @ 150 mls/hr IV ASDIRECTED [facility] Last Admin: 08/08/19 06:02 Dose: 150 mls/hr Ceftriaxone Sodium 2 gm/ (Sodium Chloride) 100 mls @ 200 mls/hr IV ONETIME ONE Stop: 08/07/19 20:00 Last Admin: 08/07/19 19:47 Dose: Not Given Magnesium Sulfate 2 gm/ Premix 50 mls @ 25 mls/hr IV ONETIME ONE Stop: 08/07/19 21:42 Last Admin: 08/07/19 20:24 Dose: 25 mls/hr Ceftriaxone Sodium 2 gm/ (Sodium Chloride) 100 mls @ 200 mls/hr IV Q24H [facility] Stop: 08/07/19 20:15 Last Admin: 08/07/19 19:49 Dose: 200 mls/hr Sodium Chloride (Normal Saline) Confirm Administered Dose 100 mls @ as directed .ROUTE .K-MED ONE Stop: 08/07/19 19:45 Last Admin: 08/07/19 19:51 Dose: Not Given Azithromycin 500 mg/ Sodium (Chloride) 250 mls @ 250 mls/hr IV Q24H [facility] Last Admin: 08/10/19 22:08 Dose: 250 mls/hr Ceftriaxone Sodium 2 gm/ (Sodium Chloride) 100 mls @ 200 mls/hr IV Q24H [facility] Last Admin: 08/10/19 21:25 Dose: 200 mls/hr Sodium Chloride (Normal Saline) 1,000 mls @ 75 mls/hr IV ASDIRECTED [facility] Sodium Phosphate 30 mmole/ (Sodium Chloride) 260 mls @ 130 mls/hr IV Q2H [facility] Stop: 08/10/19 15:59 Last Admin: 08/10/19 15:12 Dose: 130 mls/hr Magnesium Sulfate 2 gm/ Premix 50 mls @ 25 mls/hr IV ONETIME ONE Stop: 08/11/19 11:08 Last Admin: 08/11/19 09:38 Dose: 25 mls/hr Sodium Chloride (Normal Saline) 1,000 mls @ 75 mls/hr IV ASDIRECTED [facility] Last Admin: 08/12/19 09:24 Dose: 75 mls/hr Sodium Chloride (Normal Saline) Confirm Administered Dose 1,000 mls @ as directed .ROUTE .[facility] ONE Stop: 08/11/19 17:34 Last Admin: 08/11/19 17:43 Dose: Not Given Dextrose/Sodium Chloride (Dextrose 5%-Normal Saline) 1,000 mls @ 100 mls/hr IV ASDIRECTED [facility] Last Infusion: 08/13/19 12:35 Dose: 50 mls/hr Dextrose/Sodium Chloride (Dextrose 5%-Normal Saline) 1,000 mls @ 50 mls/hr IV ASDIRECTED [facility] Dextrose/Sodium Chloride (Dextrose 5%-Normal Saline) 1,000 mls @ 125 mls/hr IV ASDIRECTED [facility] Last Admin: 08/16/19 01:04 Dose: 125 mls/hr Lidocaine HCl (Xylocaine-Mpf 1%) Confirm Administered Dose 4 mls @ as directed .ROUTE .[facility] ONE Stop: 08/15/19 14:43 Lactated Ringer's (Ringers, Lactated) Confirm Administered Dose 1,000 mls @ as directed .ROUTE .[facility] ONE Stop: 08/15/19 15:18 Lactated Ringer's (Ringers, Lactated) Confirm Administered Dose 1,000 mls @ as directed .ROUTE .[facility] ONE Stop: 08/15/19 15:18 Phenylephrine HCl 1 mg/ Sodium (Chloride) 10.1 mls @ 1 mls/sec IV TITRATE [facility]; Protocol Stop: 08/15/19 18:00 Lactated Ringer's (Ringers, Lactated) Confirm Administered Dose 1,000 mls @ as directed .ROUTE .[facility] ONE Stop: 08/15/19 15:57 Lactated Ringer's (Ringers, Lactated) Confirm Administered Dose 1,000 mls @ as directed .ROUTE .[facility] ONE Stop: 08/15/19 18:09 Magnesium Sulfate 2 gm/ Premix 50 mls @ 25 mls/hr IV ONETIME ONE Stop: 08/16/19 10:10 Last Admin: 08/16/19 08:45 Dose: Not Given Magnesium Sulfate 4 gm/ Premix 50 mls @ 12.5 mls/hr IV ONETIME ONE Stop: 08/16/19 12:28 Last Admin: 08/16/19 08:46 Dose: 12.5 mls/hr Dextrose/Sodium Chloride (Dextrose 5%-Normal Saline) 1,000 mls @ 100 mls/hr IV ASDIRECTED [facility] Stop: 08/16/19 13:00 Last Infusion: 08/16/19 12:20 Dose: 20 mls/hr Dextrose/Sodium Chloride (Dextrose 5%-Normal Saline) 1,000 mls @ 20 mls/hr IV ASDIRECTED [facility] Last Admin: 08/17/19 06:33 Dose: 20 mls/hr Multivitamins/Minerals 10 ml/Chromium/Copper/Manganese/Zinc 1 ml/ Amino Ac/ Electrol/Dextrose/Calcium 1,011 mls @ 45 mls/hr IV ONETIME ONE Stop: 08/17/19 11:27 Last Admin: 08/16/19 13:15 Dose: 45 mls/hr Adjust Tpn Rate 720 mls @ 60 mls/hr .XX ONETIME ONE Stop: 08/17/19 12:59 Last Admin: 08/17/19 00:56 Dose: 60 mls/hr Multivitamins/Minerals 10 ml/Chromium/Copper/Manganese/Zinc 1 ml/ Amino Ac/ Electrol/Dextrose/Calcium 1,011 mls @ 60 mls/hr IV TITRATE [facility] Stop: 08/18/19 01:50 Last Admin: 08/17/19 08:52 Dose: 60 mls/hr Adjust Tpn Rate 720 mls @ 75 mls/hr .XX ONETIME ONE Stop: 08/17/19 22:35 Last Admin: 08/17/19 14:13 Dose: Not Given Multivitamins/Minerals 10 ml/Chromium/Copper/Manganese/Zinc 1 ml/ Amino Ac/ Electrol/Dextrose/Calcium 1,011 mls @ 75 mls/hr IV TITRATE [facility] Stop: 08/19/19 01:29 Last Admin: 08/18/19 14:35 Dose: 75 mls/hr Influenza Virus Vaccine (Pharmacy To Dose - Influenza Vaccine) 1 each IM ONETIME ONE Stop: 08/07/19 22:46 Influenza Virus Vaccine (Fluzone High-Dose Syringe) 180 mcg IM .ONCE ONE Stop: 08/08/19 10:01 Iopamidol (Isovue-300 (61%)) 100 ml IVPUSH ONETIME ONE Stop: 08/11/19 16:42 Last Admin: 08/11/19 16:44 Dose: 100 ml Ipratropium [place] (Atrovent) 0.5 mg NEB Q4HRRT [facility] Last Admin: 08/11/19 13:29 Dose: 0.5 mg Ketamine HCl (Ketalar) Confirm Administered Dose 500 mg .ROUTE .STK-MED ONE Stop: 08/15/19 15:35 Ketorolac Tromethamine (Toradol) Confirm Administered Dose 30 mg .ROUTE .STK- MED ONE Stop: 08/15/19 18:40 Ketorolac Tromethamine (Toradol) 15 mg IVPUSH Q6H PRN PRN Reason: Pain Stop: 08/18/19 00:31 Last Admin: 08/17/19 20:26 Dose: 15 mg Lidocaine HCl (Xylocaine 1%) Confirm Administered Dose 50 ml .ROUTE .STK-MED ONE Stop: 08/15/19 07:11 Last Admin: 08/15/19 15:09 Dose: 4.5 ml Lidocaine HCl (Xylocaine 1%) Confirm Administered Dose 50 ml .ROUTE .STK-MED ONE Stop: 08/15/19 11:28 Lidocaine HCl (Xylocaine 1%) 20 ml INJECT ONETIME ONE Stop: 08/18/19 17:01 Last Admin: 08/18/19 17:49 Dose: 10 ml Magnesium Hydroxide (Milk Of Magnesia) 30 ml PO ONETIME ONE Stop: 08/14/19 07:43 Last Admin: 08/14/19 08:58 Dose: 30 ml Methadone HCl (Methadone) 5 mg PO BID [facility] Last Admin: 08/15/19 21:37 Dose: Not Given Midazolam HCl (Versed 1 Mg/Ml) Confirm Administered Dose 2 mg .ROUTE .STK-MED ONE Stop: 08/15/19 12:15 Miscellaneous Medication (Phenylephrine 1 Mg/10 Ml-Ns) Confirm Administered Dose 1 mg IV .STK-MED ONE Stop: 08/15/19 15:05 Miscellaneous Medication (Phenylephrine 1 Mg/10 Ml-Ns) Confirm Administered Dose 1 mg IV .STK-MED ONE Stop: 08/15/19 16:18 Miscellaneous Medication (Phenylephrine 1 Mg/10 Ml-Ns) Confirm Administered Dose 1 mg IV .STK-MED ONE Stop: 08/15/19 17:47 Miscellaneous Medication (Phenylephrine 1 Mg/10 Ml-Ns) Confirm Administered Dose 1 mg IV .STK-MED ONE Stop: 08/15/19 18:34 Neostigmine Methylsulfate (Neostigmine Methylsulfate) Confirm Administered Dose 5 mg .ROUTE .STK-MED ONE Stop: 08/15/19 16:12 Ondansetron HCl (Zofran) 4 mg IVPUSH ONETIME ONE Stop: 08/07/19 16:51 Last Admin: 08/07/19 17:20 Dose: 4 mg Ondansetron HCl (Zofran) 4 mg IVPUSH ONETIME ONE Stop: 08/07/19 19:12 Last Admin: 08/07/19 19:51 Dose: 4 mg Ondansetron HCl (Zofran Odt) 4 mg PO Q6H PRN PRN Reason: nausea, able to take PO Last Admin: 08/13/19 09:44 Dose: 4 mg Ondansetron HCl (Zofran) 4 mg IV Q6H [facility] Last Admin: 08/08/19 06:03 Dose: Not Given Ondansetron HCl (Zofran) 4 mg IV Q6H [facility] Last Admin: 08/08/19 12:40 Dose: 4 mg Ondansetron HCl (Zofran) 4 mg IVPUSH Q8H PRN PRN Reason: Nausea/Vomiting Last Admin: 08/13/19 15:04 Dose: 4 mg Ondansetron HCl (Zofran) 4 mg IVPUSH ONETIME PRN PRN Reason: Nausea/Vomiting Stop: 08/15/19 18:00 Ondansetron HCl (Zofran) Confirm Administered Dose 4 mg .ROUTE .STK-MED ONE Stop: 08/15/19 16:13 Oseltamivir Phosphate (Tamiflu) 75 mg PO BID [facility] Stop: 08/12/19 09:01 Last Admin: 08/12/19 09:24 Dose: 75 mg Propofol (Diprivan 20 Ml) Confirm Administered Dose 200 mg .ROUTE .STK-MED ONE Stop: 08/15/19 12:15 Risperidone (Risperidal) 2 mg PO BEDTIME [facility] Last Admin: 08/15/19 21:36 Dose: Not Given Risperidone (Risperidal) 1 mg PO DAILY [facility] Last Admin: 08/15/19 10:49 Dose: Not Given Rocuronium [place] (Zemuron) Confirm Administered Dose 50 mg .ROUTE .STK-MED ONE Stop: 08/15/19 12:14 Rocuronium [place] (Zemuron) Confirm Administered Dose 50 mg .ROUTE .STK-MED ONE Stop: 08/15/19 16:10 Sodium Chloride (Saline Flush) 10 ml FLUSH ONETIME ONE Stop: 08/11/19 16:42 Last Admin: 08/11/19 16:46 Dose: 10 ml Trazodone HCl (Trazodone) 50 mg PO BEDTIME [facility] Last Admin: 08/15/19 21:50 Dose: Not Given - Exam Wound/Incisions: Healing Well General: Alert, Oriented, Cooperative Cardiovascular: Regular Rate, Regular Rhythm, No Murmurs GI/Abdominal Exam: Soft, Non-Tender, No Organomegaly, No Distention Extremities: Normal Inspection, Other (decresed sensation in left plantar aspect of foot. the rest of foot has intact motor and sensory function) Sepsis Event Note - Evaluation Sepsis Screening Result: No Definite Risk - Focused Exam Vital Signs: Vital Signs Temp Pulse Resp BP Pulse Ox 08/19/19 05:37 97.5 F 86 20 114/93 H 90 L 08/18/19 23:31 98.4 F 81 18 132/68 91 L 08/18/19 20:34 98.1 F 85 20 138/66 92 L Date Exam was Performed: 08/19/19 Time Exam was Performed: 08:08 - Problem List Review Problem List Initiated/Reviewed/Updated: No - My Orders Last 24 Hours: Active Orders 24 hr Category Date Time Status Abdomen 1V Flat [CR] Routine Exams 08/19/19 07:00 Ordered BMP [BASIC METABOLIC PANEL,BMP] [CHEM] AM Lab 08/20/19 05:11 Ordered BMP [BASIC METABOLIC PANEL,BMP] [CHEM] AM Lab 08/21/19 05:11 Ordered BMP [BASIC METABOLIC PANEL,BMP] [CHEM] AM Lab 08/22/19 05:11 Ordered BMP [BASIC METABOLIC PANEL,BMP] [CHEM] AM Lab 08/23/19 05:11 Ordered MAGNESIUM [CHEM] AM Lab 08/20/19 05:11 Ordered MAGNESIUM [CHEM] AM Lab 08/21/19 05:11 Ordered MAGNESIUM [CHEM] AM Lab 08/22/19 05:11 Ordered MAGNESIUM [CHEM] AM Lab 08/23/19 05:11 Ordered PHOSPHORUS [CHEM] AM Lab 08/20/19 05:11 Ordered PHOSPHORUS [CHEM] AM Lab 08/21/19 05:11 Ordered PHOSPHORUS [CHEM] AM Lab 08/22/19 05:11 Ordered PHOSPHORUS [CHEM] AM Lab 08/23/19 05:11 Ordered Heparin Sodium Med 08/18/19 09:00 Active 5,000 units SUBCUT Q8H Remove Patch Med 08/18/19 09:00 Active 1 ea TRDERM DAILY Medication Orders Acetaminophen (Tylenol) 650 mg PO Q4H PRN PRN Reason: Pain (Mild 1-3)/fever Last Admin: 08/13/19 09:43 Dose: 650 mg Albuterol/Ipratropium (Duoneb 3.0-0.5 Mg/3 Ml) 3 ml NEB QIDRT PRN PRN Reason: SOB/wheezing Famotidine (Pepcid) 20 mg IVPUSH BEDTIME [facility] Last Admin: 08/18/19 20:39 Dose: 20 mg Admin: 08/17/19 20:33 Dose: 20 mg Admin: 08/16/19 21:57 Dose: 20 mg Haloperidol Lactate (Haldol) 5 mg IVPUSH BEDTIME [facility] Last Admin: 08/18/19 20:36 Dose: 5 mg Admin: 08/17/19 20:30 Dose: 5 mg Admin: 08/16/19 21:57 Dose: 5 mg Haloperidol Lactate (Haldol) 2 mg IVPUSH 0600,1400 [facility] Last Admin: 08/19/19 05:39 Dose: 2 mg Admin: 08/18/19 14:19 Dose: 2 mg Admin: 08/18/19 06:55 Dose: 2 mg Admin: 08/17/19 14:48 Dose: 2 mg Admin: 08/17/19 06:03 Dose: 2 mg Admin: 08/16/19 14:36 Dose: Not Given Heparin Sodium (Porcine) (Heparin Sodium) 5,000 units SUBCUT Q8H [facility] Last Admin: 08/19/19 00:01 Dose: 5,000 units Admin: 08/18/19 16:17 Dose: Admin: 08/18/19 08:11 Dose: 5,000 units Hydromorphone HCl (Dilaudid) 1 mg IVPUSH Q3H PRN PRN Reason: Pain Last Admin: 08/19/19 06:05 Dose: 1 mg Admin: 08/19/19 01:26 Dose: 1 mg Admin: 08/18/19 17:58 Dose: 1 mg Admin: 08/18/19 11:51 Dose: 1 mg Admin: 08/18/19 09:17 Dose: 1 mg Admin: 08/17/19 14:49 Dose: 1 mg Admin: 08/16/19 18:55 Dose: 1 mg Admin: 08/16/19 15:10 Dose: 1 mg Admin: 08/16/19 08:15 Dose: 1 mg Admin: 08/16/19 00:57 Dose: 1 mg Admin: 08/15/19 21:57 Dose: 1 mg Fat Emulsion Intravenous (Intralipid 20%) 500 mls @ 62.5 mls/hr IV MoWeFr [facility] Last Admin: 08/17/19 12:30 Dose: 62.5 mls/hr Sodium Chloride (Normal Saline) 1,000 mls @ 50 mls/hr IV ASDIRECTED [facility] Last Admin: 08/19/19 04:15 Dose: 50 mls/hr Infusion: 08/19/19 04:15 Dose: 50 mls/hr Admin: 08/18/19 08:16 Dose: 50 mls/hr Infusion: 08/18/19 08:16 Dose: 50 mls/hr Admin: 08/17/19 12:31 Dose: 50 mls/hr Amino Ac/Electrol/Dextrose/Calcium (Clinimix E 10/11) 1,000 mls @ 75 mls/hr IV TITRATE [facility] Last Admin: 08/19/19 04:13 Dose: 75 mls/hr Infusion: 08/18/19 13:31 Dose: 75 mls/hr Admin: 08/18/19 00:11 Dose: 75 mls/hr Lorazepam (Ativan) 1 mg IVPUSH Q2H PRN PRN Reason: Anxiety Last Admin: 08/16/19 22:14 Dose: 1 mg Admin: 08/16/19 10:26 Dose: 1 mg Admin: 08/16/19 00:58 Dose: 1 mg Miscellaneous Information (Remove Patch) 1 ea TRDERM DAILY [facility] Last Admin: 08/18/19 11:31 Dose: 1 ea Nicotine (Habitrol) 21 mg TRDERM DAILY [facility] Last Admin: 08/18/19 08:08 Dose: 21 mg Admin: 08/17/19 08:33 Dose: 21 mg Admin: 08/16/19 09:57 Dose: 21 mg Admin: 08/15/19 10:48 Dose: Not Given Admin: 08/14/19 09:02 Dose: Not Given Admin: 08/13/19 08:47 Dose: 21 mg Admin: 08/12/19 09:24 Dose: 21 mg Admin: 08/11/19 09:39 Dose: 21 mg Admin: 08/10/19 09:23 Dose: 21 mg Admin: 08/09/19 09:23 Dose: 21 mg Admin: 08/08/19 09:45 Dose: 21 mg Benztropine 2mg/2ml (Vial) 0 each IVPUSH BEDTIME [facility] Last Admin: 08/18/19 20:43 Dose: 1 each Admin: 08/17/19 20:35 Dose: 1 each Admin: 08/16/19 22:01 Dose: 1 each Ondansetron HCl (Zofran) 4 mg IVPUSH Q4H PRN PRN Reason: Nausea/Vomiting Last Admin: 08/18/19 12:30 Dose: 4 mg Admin: 08/18/19 05:33 Dose: 4 mg Admin: 08/18/19 00:20 Dose: 4 mg Admin: 08/17/19 15:51 Dose: 4 mg Admin: 08/13/19 21:01 Dose: 4 mg Pharmacy Consult (Consult To Pharmacy) 0 each .XX DAILY PRN PRN Reason: TPN MONITORING Sodium Chloride (Saline Flush) 10 ml FLUSH ASDIRECTED PRN PRN Reason: Keep Vein Open Last Admin: 08/11/19 16:44 Dose: 10 ml Admin: 08/11/19 16:43 Dose: 10 ml Admin: 08/07/19 17:21 Dose: 10 ml - Assessment Assessment (Free Text/Narrative):: Patient has pSBO now POD4 s/p ex lap, SANTANA, excision of RUQ mass. Stable. - Plan Plan (Free Text/Narrative):: - Leave NGT out, keep NPO. If he starts getting nausea and vomiting we will re- insert NGT - Continue TPN - Encourage ambulation - Awaiting return of bowel function
[2019-08-19] MEDS: Nicotine 21 MG/24 Hr Patch TRDERM SCH (08:32)
--- NOTE | 2019-08-19 08:55 | CR ---
Abdomen: Supine view the abdomen was obtained. Comparison: Prior CT abdomen and pelvis study of 08/11/19 and abdominal x-ray also of 08/11/19. Increased gas is noted within small bowel loops within the left abdomen. Contrast is noted within the right and transverse colon from prior CT exam. Left-sided abdominal drain is noted. Skin paul are present. Bony structures are osteopenic. Impression: 1. Mildly gas dilated small bowel loops within left abdomen most likely representing ileus. 2. Anterior abdominal surgery with skin paul and left-sided surgical drain. 3. Other findings believed to be incidental. Diagnostic code #3 Study was dictated in MDT
[2019-08-19] MEDS ORDERED: Magnesium Sulfate/D5W 1 GM/100 ML BAG IV ONE (09:00)
[2019-08-19] MEDS: Fat Emulsion 500 ML IV SCH (12:17)
[2019-08-19] MEDS: LORazepam 2 MG/ML SDV IVPUSH PRN (15:30)
[2019-08-19] MEDS ORDERED: MANG IV SCH ×3 (18:00)
[2019-08-19] MEDS ORDERED: ZINC IV SCH ×3 (18:00)
[2019-08-19] MEDS ORDERED: COPPER IV SCH ×3 (18:00)
[2019-08-19] MEDS ORDERED: [UNRECOGNIZED DRUG - OTHER] IV SCH ×3 (18:00)
[2019-08-19] MEDS ORDERED: CHROMIUM IV SCH ×3 (18:00)
[2019-08-19] MEDS ORDERED: MVI IV SCH ×3 (18:00)
[2019-08-19] MEDS ORDERED: VITAMIN K IV SCH ×3 (18:00)
[2019-08-19] MEDS: BENZTROPINE 2MG/2ML VIAL IVPUSH SCH (20:45)
[2019-08-19] MEDS: Famotidine 20 MG/2 ML SDV IVPUSH SCH (20:48)
[2019-08-20] MEDS: Heparin Sodium 5,000 Units/ML Vial SUBCUT SCH ×4 (00:14→23:41)
[2019-08-20] MEDS: Sodium Chloride 0.9% 1,000 ML IV SCH ×2 (01:31→21:58)
[2019-08-20] MEDS: HYDROmorphone 1 MG/ML Syringe IVPUSH PRN ×6 (01:53→23:40)
[2019-08-20] MEDS: Haloperidol Lactate 5 MG/ML SDV IVPUSH SCH ×3 (05:40→21:17)
[2019-08-20] MEDS ORDERED: Dextrose 10% in Water 500 ML IV SCH (07:30)
[2019-08-20] MEDS ORDERED: MANG IV ONE ×3 (08:15)
[2019-08-20] MEDS ORDERED: VITAMIN K IV ONE ×3 (08:15)
[2019-08-20] MEDS ORDERED: MVI IV ONE ×3 (08:15)
[2019-08-20] MEDS ORDERED: COPPER IV ONE ×3 (08:15)
[2019-08-20] MEDS ORDERED: [UNRECOGNIZED DRUG - OTHER] IV ONE ×3 (08:15)
[2019-08-20] MEDS ORDERED: ZINC IV ONE ×3 (08:15)
[2019-08-20] MEDS ORDERED: CHROMIUM IV ONE ×3 (08:15)
[2019-08-20] MEDS: Nicotine 21 MG/24 Hr Patch TRDERM SCH (08:26)
[2019-08-20] MEDS ORDERED: Famotidine 20 MG/2 ML SDV IVPUSH ONE (10:00)
--- NOTE | 2019-08-20 10:28 | PCM.SURGPN ---
- General Info Date of Service: 08/20/19 POD#: 5 Post-Op Diagnosis: Partial SBO Functional Status: Reports: Pain Controlled, Urinating, Other (ambulating) Pain Score: 2 - Review of Systems General: Reports: No Symptoms, Other (heartburn) HEENT: Reports: No Symptoms Pulmonary: Reports: No Symptoms Cardiovascular: Reports: No Symptoms Gastrointestinal: Reports: No Symptoms Genitourinary: Reports: No Symptoms Musculoskeletal: Reports: No Symptoms Skin: Reports: No Symptoms - Patient Data Vitals - Most Recent: Last Vital Signs Temp 97.9 F 08/20/19 08:25 Pulse 83 08/20/19 08:25 Resp 18 08/20/19 08:25 BP 129/68 08/20/19 08:25 Pulse Ox 95 08/20/19 08:25 Orthostatic Blood Pressure [ 109/60 Standing] Orthostatic Blood Pressure [ 120/69 Sitting] Orthostatic Blood Pressure [ 120/79 Supine] Weight - Most Recent: 59.33 kg I&O - Last 24 Hours: Intake & Output 08/19/19 08/20/19 08/20/19 22:59 06:59 14:59 Intake Total 1669 1093 Output Total 245 600 Balance 1424 493 Lab Results Last 24 Hrs: Laboratory Results - last 24 hr 08/19/19 08/19/19 08/20/19 Range/Units 12:29 18:14 00:06 Sodium (136-145) mEq/L Potassium (3.5-5.1) mEq/L Chloride (98-107) mEq/L Carbon Dioxide (21-32) mEq/L Anion Gap (5-15) BUN (7-18) mg/dL Creatinine (0.7-1.3) mg/dL Est Cr Clr Drug Dosing mL/min Estimated GFR (MDRD) (>60) mL/min BUN/Creatinine Ratio (14-18) Glucose (80-115) mg/dL POC Glucose 127 H 101 119 H (80-115) mg/dL Calcium (8.5-10.1) mg/dL Phosphorus (2.6-4.7) mg/dL Magnesium (1.8-2.4) mg/dl 08/20/19 08/20/19 Range/Units 05:55 05:56 Sodium 139 (136-145) mEq/L Potassium 4.1 (3.5-5.1) mEq/L Chloride 107 (98-107) mEq/L Carbon Dioxide 25 (21-32) mEq/L Anion Gap 11.1 (5-15) BUN 18 (7-18) mg/dL Creatinine 0.7 (0.7-1.3) mg/dL Est Cr Clr Drug Dosing 82.40 mL/min Estimated GFR (MDRD) > 60 (>60) mL/min BUN/Creatinine Ratio 25.7 H (14-18) Glucose 150 H (80-115) mg/dL POC Glucose 135 H (80-115) mg/dL Calcium 7.8 L (8.5-10.1) mg/dL Phosphorus 3.5 (2.6-4.7) mg/dL Magnesium 1.8 (1.8-2.4) mg/dl Med Orders - Current: Current Medications Acetaminophen (Tylenol) 650 mg PO Q4H PRN PRN Reason: Pain (Mild 1-3)/fever Last Admin: 08/13/19 09:43 Dose: 650 mg Albuterol/Ipratropium (Duoneb 3.0-0.5 Mg/3 Ml) 3 ml NEB QIDRT PRN PRN Reason: SOB/wheezing Famotidine (Pepcid) 20 mg IVPUSH BEDTIME [facility] Last Admin: 08/19/19 20:48 Dose: 20 mg Haloperidol Lactate (Haldol) 5 mg IVPUSH BEDTIME [facility] Last Admin: 08/19/19 20:44 Dose: 5 mg Haloperidol Lactate (Haldol) 2 mg IVPUSH 0600,1400 [facility] Last Admin: 08/20/19 05:40 Dose: 2 mg Heparin Sodium (Porcine) (Heparin Sodium) 5,000 units SUBCUT Q8H [facility] Last Admin: 08/20/19 08:32 Dose: 5,000 units Hydromorphone HCl (Dilaudid) 1 mg IVPUSH Q3H PRN PRN Reason: Pain Last Admin: 08/20/19 08:55 Dose: 1 mg Fat Emulsion Intravenous (Intralipid 20%) 500 mls @ 62.5 mls/hr IV MoWeFr [facility] Last Admin: 08/19/19 12:17 Dose: 62.5 mls/hr Sodium Chloride (Normal Saline) 1,000 mls @ 50 mls/hr IV ASDIRECTED [facility] Last Admin: 08/20/19 01:31 Dose: 50 mls/hr Amino Ac/Electrol/Dextrose/Calcium (Clinimix E 10/11) 1,000 mls @ 75 mls/hr IV TITRATE [facility] Last Admin: 08/19/19 04:13 Dose: 75 mls/hr Dextrose/Water (Dextrose 10% In Water) 500 mls @ 75 mls/hr IV ASDIRECTED [facility] Last Admin: 08/20/19 07:37 Dose: 75 mls/hr Multivitamins/Minerals 10 ml/Chromium/Copper/Manganese/Zinc 1 ml/ Amino Ac/ Electrol/Dextrose/Calcium 1,011 mls @ 75 mls/hr IV ONETIME ONE Stop: 08/20/19 21:43 Last Admin: 08/20/19 08:26 Dose: 75 mls/hr Magnesium Sulfate 2 gm/ Premix 50 mls @ 25 mls/hr IV ONETIME ONE Stop: 08/20/19 12:59 Lorazepam (Ativan) 1 mg IVPUSH Q2H PRN PRN Reason: Anxiety Last Admin: 08/19/19 15:30 Dose: 1 mg Miscellaneous Information (Remove Patch) 1 ea TRDERM DAILY [facility] Last Admin: 08/20/19 08:36 Dose: 1 ea Nicotine (Habitrol) 21 mg TRDERM DAILY [facility] Last Admin: 08/20/19 08:26 Dose: 21 mg Benztropine 2mg/2ml (Vial) 0 each IVPUSH BEDTIME [facility] Last Admin: 08/19/19 20:45 Dose: 1 each Ondansetron HCl (Zofran) 4 mg IVPUSH Q4H PRN PRN Reason: Nausea/Vomiting Last Admin: 08/18/19 12:30 Dose: 4 mg Pharmacy Consult (Consult To Pharmacy) 0 each .XX DAILY PRN PRN Reason: TPN MONITORING Sodium Chloride (Saline Flush) 10 ml FLUSH ASDIRECTED PRN PRN Reason: Keep Vein Open Last Admin: 08/11/19 16:44 Dose: 10 ml Discontinued Medications Albuterol (Proventil Neb Soln) 2.5 mg NEB ONETIME PRN PRN Reason: bronchodilation Stop: 08/15/19 18:00 Albuterol/Ipratropium (Duoneb 3.0-0.5 Mg/3 Ml) 3 ml NEB QIDRT [facility] Last Admin: 08/17/19 09:10 Dose: 3 ml Azithromycin (Zithromax) 250 mg PO BEDTIME [facility] Last Admin: 08/11/19 21:06 Dose: 250 mg Benzonatate (Tessalon Perles) 100 mg PO BID [facility] Last Admin: 08/15/19 21:36 Dose: Not Given Benztropine Mesylate (Cogentin) 1 mg PO BEDTIME [facility] Last Admin: 08/15/19 21:37 Dose: Not Given Benztropine Mesylate (Cogentin) 1 mg IVPUSH BEDTIME [facility] Cefazolin Sodium (Ancef) Confirm Administered Dose 2 gm .ROUTE .STK-MED ONE Stop: 08/15/19 15:23 Cefazolin Sodium (Ancef) Confirm Administered Dose 2 gm .ROUTE .STK-MED ONE Stop: 08/15/19 18:13 Cefdinir (Omnicef) 300 mg PO BID [facility] Last Admin: 08/14/19 08:58 Dose: 300 mg Ceftriaxone Sodium (Rocephin) Confirm Administered Dose 2 gm IV .STK-MED ONE Stop: 08/07/19 19:45 Last Admin: 08/07/19 19:51 Dose: Not Given Diatrizoate Meglum/Diatrizoate Sod (Gastrografin 37%) 90 ml PO ONETIME ONE Stop: 08/11/19 16:42 Last Admin: 08/11/19 16:43 Dose: 90 ml Ephedrine Sulfate (Ephedrine Sulfate) 5 mg IVPUSH ASDIRECTED PRN PRN Reason: Hypotension Stop: 08/15/19 18:00 Famotidine (Pepcid) 20 mg IVPUSH ONETIME ONE Stop: 08/20/19 10:01 Last Admin: 08/20/19 09:59 Dose: 20 mg Fentanyl (Sublimaze) Confirm Administered Dose 250 mcg .ROUTE .STK-MED ONE Stop: 08/15/19 12:16 Fentanyl (Sublimaze) 50 mcg IVPUSH Q5M PRN PRN Reason: Pain Stop: 08/15/19 18:00 Fentanyl (Sublimaze) Confirm Administered Dose 100 mcg .ROUTE .STK-MED ONE Stop: 08/15/19 17:11 Glycopyrrolate () Confirm Administered Dose 1 mg .ROUTE .STK-MED ONE Stop: 08/15/19 16:12 Guaifenesin (Mucinex) 600 mg PO BID [facility] Last Admin: 08/15/19 21:37 Dose: Not Given Guaifenesin (Mucinex) 600 mg PO BID [facility] Last Admin: 08/08/19 12:51 Dose: Not Given Haloperidol Lactate (Haldol) 5 mg IVPUSH BEDTIME [facility] Last Admin: 08/15/19 21:51 Dose: 5 mg Haloperidol Lactate (Haldol) 5 mg IV ONETIME PRN PRN Reason: Other Stop: 08/16/19 08:00 Haloperidol Lactate (Haldol) 5 mg IVPUSH Q8H [facility] Last Admin: 08/16/19 09:59 Dose: Not Given Haloperidol Lactate (Haldol) 2 mg IVPUSH ONETIME ONE Stop: 08/16/19 09:01 Last Admin: 08/16/19 09:57 Dose: 2 mg Hydromorphone HCl (Dilaudid) Confirm Administered Dose 0.5 mg .ROUTE .STK-MED ONE Stop: 08/15/19 15:22 Hydromorphone HCl (Dilaudid) 0.5 mg IVPUSH Q15M PRN PRN Reason: Pain (severe 7-10) Stop: 08/15/19 18:00 Hydromorphone HCl (Dilaudid) Confirm Administered Dose 0.5 mg .ROUTE .STK-MED ONE Stop: 08/15/19 16:18 Hydromorphone HCl (Dilaudid) Confirm Administered Dose 0.5 mg .ROUTE .STK-MED ONE Stop: 08/15/19 18:43 Hydromorphone HCl (Dilaudid) 0.5 mg IVPUSH ONETIME ONE Stop: 08/15/19 20:51 Last Admin: 08/15/19 20:59 Dose: 0.5 mg Hydromorphone HCl (Dilaudid) Confirm Administered Dose 0.5 mg .ROUTE .STK-MED ONE Stop: 08/15/19 21:00 Last Admin: 08/15/19 21:34 Dose: Not Given Hydromorphone HCl (Dilaudid) 0.5 mg IVPUSH Q3H PRN PRN Reason: Abdominal Pain Sodium Chloride (Normal Saline) 1,000 mls @ 150 mls/hr IV ASDIRECTED [facility] Last Admin: 08/08/19 06:02 Dose: 150 mls/hr Ceftriaxone Sodium 2 gm/ (Sodium Chloride) 100 mls @ 200 mls/hr IV ONETIME ONE Stop: 08/07/19 20:00 Last Admin: 08/07/19 19:47 Dose: Not Given Magnesium Sulfate 2 gm/ Premix 50 mls @ 25 mls/hr IV ONETIME ONE Stop: 08/07/19 21:42 Last Admin: 08/07/19 20:24 Dose: 25 mls/hr Ceftriaxone Sodium 2 gm/ (Sodium Chloride) 100 mls @ 200 mls/hr IV Q24H [facility] Stop: 08/07/19 20:15 Last Admin: 08/07/19 19:49 Dose: 200 mls/hr Sodium Chloride (Normal Saline) Confirm Administered Dose 100 mls @ as directed .ROUTE .[facility] ONE Stop: 08/07/19 19:45 Last Admin: 08/07/19 19:51 Dose: Not Given Azithromycin 500 mg/ Sodium (Chloride) 250 mls @ 250 mls/hr IV Q24H [facility] Last Admin: 08/10/19 22:08 Dose: 250 mls/hr Ceftriaxone Sodium 2 gm/ (Sodium Chloride) 100 mls @ 200 mls/hr IV Q24H [facility] Last Admin: 08/10/19 21:25 Dose: 200 mls/hr Sodium Chloride (Normal Saline) 1,000 mls @ 75 mls/hr IV ASDIRECTED [facility] Sodium Phosphate 30 mmole/ (Sodium Chloride) 260 mls @ 130 mls/hr IV Q2H [facility] Stop: 08/10/19 15:59 Last Admin: 08/10/19 15:12 Dose: 130 mls/hr Magnesium Sulfate 2 gm/ Premix 50 mls @ 25 mls/hr IV ONETIME ONE Stop: 08/11/19 11:08 Last Admin: 08/11/19 09:38 Dose: 25 mls/hr Sodium Chloride (Normal Saline) 1,000 mls @ 75 mls/hr IV ASDIRECTED [facility] Last Admin: 08/12/19 09:24 Dose: 75 mls/hr Sodium Chloride (Normal Saline) Confirm Administered Dose 1,000 mls @ as directed .ROUTE .[facility] ONE Stop: 08/11/19 17:34 Last Admin: 08/11/19 17:43 Dose: Not Given Dextrose/Sodium Chloride (Dextrose 5%-Normal Saline) 1,000 mls @ 100 mls/hr IV ASDIRECTED [facility] Last Infusion: 08/13/19 12:35 Dose: 50 mls/hr Dextrose/Sodium Chloride (Dextrose 5%-Normal Saline) 1,000 mls @ 50 mls/hr IV ASDIRECTED [facility] Dextrose/Sodium Chloride (Dextrose 5%-Normal Saline) 1,000 mls @ 125 mls/hr IV ASDIRECTED [facility] Last Admin: 08/16/19 01:04 Dose: 125 mls/hr Lidocaine HCl (Xylocaine-Mpf 1%) Confirm Administered Dose 4 mls @ as directed .ROUTE .[facility] ONE Stop: 08/15/19 14:43 Lactated Ringer's (Ringers, Lactated) Confirm Administered Dose 1,000 mls @ as directed .ROUTE .[facility] ONE Stop: 08/15/19 15:18 Lactated Ringer's (Ringers, Lactated) Confirm Administered Dose 1,000 mls @ as directed .ROUTE .[facility] ONE Stop: 08/15/19 15:18 Phenylephrine HCl 1 mg/ Sodium (Chloride) 10.1 mls @ 1 mls/sec IV TITRATE [facility]; Protocol Stop: 08/15/19 18:00 Lactated Ringer's (Ringers, Lactated) Confirm Administered Dose 1,000 mls @ as directed .ROUTE .[facility] ONE Stop: 08/15/19 15:57 Lactated Ringer's (Ringers, Lactated) Confirm Administered Dose 1,000 mls @ as directed .ROUTE .[facility] ONE Stop: 08/15/19 18:09 Magnesium Sulfate 2 gm/ Premix 50 mls @ 25 mls/hr IV ONETIME ONE Stop: 08/16/19 10:10 Last Admin: 08/16/19 08:45 Dose: Not Given Magnesium Sulfate 4 gm/ Premix 50 mls @ 12.5 mls/hr IV ONETIME ONE Stop: 08/16/19 12:28 Last Admin: 08/16/19 08:46 Dose: 12.5 mls/hr Dextrose/Sodium Chloride (Dextrose 5%-Normal Saline) 1,000 mls @ 100 mls/hr IV ASDIRECTED [facility] Stop: 08/16/19 13:00 Last Infusion: 08/16/19 12:20 Dose: 20 mls/hr Dextrose/Sodium Chloride (Dextrose 5%-Normal Saline) 1,000 mls @ 20 mls/hr IV ASDIRECTED [facility] Last Admin: 08/17/19 06:33 Dose: 20 mls/hr Multivitamins/Minerals 10 ml/Chromium/Copper/Manganese/Zinc 1 ml/ Amino Ac/ Electrol/Dextrose/Calcium 1,011 mls @ 45 mls/hr IV ONETIME ONE Stop: 08/17/19 11:27 Last Admin: 08/16/19 13:15 Dose: 45 mls/hr Adjust Tpn Rate 720 mls @ 60 mls/hr .XX ONETIME ONE Stop: 08/17/19 12:59 Last Admin: 08/17/19 00:56 Dose: 60 mls/hr Multivitamins/Minerals 10 ml/Chromium/Copper/Manganese/Zinc 1 ml/ Amino Ac/ Electrol/Dextrose/Calcium 1,011 mls @ 60 mls/hr IV TITRATE [facility] Stop: 08/18/19 01:50 Last Admin: 08/17/19 08:52 Dose: 60 mls/hr Adjust Tpn Rate 720 mls @ 75 mls/hr .XX ONETIME ONE Stop: 08/17/19 22:35 Last Admin: 08/17/19 14:13 Dose: Not Given Multivitamins/Minerals 10 ml/Chromium/Copper/Manganese/Zinc 1 ml/ Amino Ac/ Electrol/Dextrose/Calcium 1,011 mls @ 75 mls/hr IV TITRATE [facility] Stop: 08/19/19 01:29 Last Admin: 08/18/19 14:35 Dose: 75 mls/hr Magnesium Sulfate/Dextrose (Magnesium Sulfate In D5w 100 Premix) 1 gm in 100 mls @ 100 mls/hr IV ONETIME ONE Stop: 08/19/19 09:59 Last Admin: 08/19/19 09:42 Dose: 100 mls/hr Multivitamins/Minerals 10 ml/Chromium/Copper/Manganese/Zinc 1 ml/ Amino Ac/ Electrol/Dextrose/Calcium 1,011 mls @ 75 mls/hr IV TITRATE [facility] Stop: 08/20/19 07:29 Last Admin: 08/19/19 17:54 Dose: 75 mls/hr Influenza Virus Vaccine (Pharmacy To Dose - Influenza Vaccine) 1 each IM ONETIME ONE Stop: 08/07/19 22:46 Influenza Virus Vaccine (Fluzone High-Dose Syringe) 180 mcg IM .ONCE ONE Stop: 08/08/19 10:01 Iopamidol (Isovue-300 (61%)) 100 ml IVPUSH ONETIME ONE Stop: 08/11/19 16:42 Last Admin: 08/11/19 16:44 Dose: 100 ml Ipratropium Ros[place] (Atrovent) 0.5 mg NEB Q4HRRT [facility] Last Admin: 08/11/19 13:29 Dose: 0.5 mg Ketamine HCl (Ketalar) Confirm Administered Dose 500 mg .ROUTE .STK-MED ONE Stop: 08/15/19 15:35 Ketorolac Tromethamine (Toradol) Confirm Administered Dose 30 mg .ROUTE .STK- MED ONE Stop: 08/15/19 18:40 Ketorolac Tromethamine (Toradol) 15 mg IVPUSH Q6H PRN PRN Reason: Pain Stop: 08/18/19 00:31 Last Admin: 08/17/19 20:26 Dose: 15 mg Lidocaine HCl (Xylocaine 1%) Confirm Administered Dose 50 ml .ROUTE .STK-MED ONE Stop: 08/15/19 07:11 Last Admin: 08/15/19 15:09 Dose: 4.5 ml Lidocaine HCl (Xylocaine 1%) Confirm Administered Dose 50 ml .ROUTE .STK-MED ONE Stop: 08/15/19 11:28 Lidocaine HCl (Xylocaine 1%) 20 ml INJECT ONETIME ONE Stop: 08/18/19 17:01 Last Admin: 08/18/19 17:49 Dose: 10 ml Magnesium Hydroxide (Milk Of Magnesia) 30 ml PO ONETIME ONE Stop: 08/14/19 07:43 Last Admin: 08/14/19 08:58 Dose: 30 ml Methadone HCl (Methadone) 5 mg PO BID [facility] Last Admin: 08/15/19 21:37 Dose: Not Given Midazolam HCl (Versed 1 Mg/Ml) Confirm Administered Dose 2 mg .ROUTE .STK-MED ONE Stop: 08/15/19 12:15 Miscellaneous Medication (Phenylephrine 1 Mg/10 Ml-Ns) Confirm Administered Dose 1 mg IV .STK-MED ONE Stop: 08/15/19 15:05 Miscellaneous Medication (Phenylephrine 1 Mg/10 Ml-Ns) Confirm Administered Dose 1 mg IV .STK-MED ONE Stop: 08/15/19 16:18 Miscellaneous Medication (Phenylephrine 1 Mg/10 Ml-Ns) Confirm Administered Dose 1 mg IV .STK-MED ONE Stop: 08/15/19 17:47 Miscellaneous Medication (Phenylephrine 1 Mg/10 Ml-Ns) Confirm Administered Dose 1 mg IV .STK-MED ONE Stop: 08/15/19 18:34 Neostigmine Methylsulfate (Neostigmine Methylsulfate) Confirm Administered Dose 5 mg .ROUTE .STK-MED ONE Stop: 08/15/19 16:12 Ondansetron HCl (Zofran) 4 mg IVPUSH ONETIME ONE Stop: 08/07/19 16:51 Last Admin: 08/07/19 17:20 Dose: 4 mg Ondansetron HCl (Zofran) 4 mg IVPUSH ONETIME ONE Stop: 08/07/19 19:12 Last Admin: 08/07/19 19:51 Dose: 4 mg Ondansetron HCl (Zofran Odt) 4 mg PO Q6H PRN PRN Reason: nausea, able to take PO Last Admin: 08/13/19 09:44 Dose: 4 mg Ondansetron HCl (Zofran) 4 mg IV Q6H [facility] Last Admin: 08/08/19 06:03 Dose: Not Given Ondansetron HCl (Zofran) 4 mg IV Q6H [facility] Last Admin: 08/08/19 12:40 Dose: 4 mg Ondansetron HCl (Zofran) 4 mg IVPUSH Q8H PRN PRN Reason: Nausea/Vomiting Last Admin: 08/13/19 15:04 Dose: 4 mg Ondansetron HCl (Zofran) 4 mg IVPUSH ONETIME PRN PRN Reason: Nausea/Vomiting Stop: 08/15/19 18:00 Ondansetron HCl (Zofran) Confirm Administered Dose 4 mg .ROUTE .STK-MED ONE Stop: 08/15/19 16:13 Oseltamivir Phosphate (Tamiflu) 75 mg PO BID [facility] Stop: 08/12/19 09:01 Last Admin: 08/12/19 09:24 Dose: 75 mg Propofol (Diprivan 20 Ml) Confirm Administered Dose 200 mg .ROUTE .STK-MED ONE Stop: 08/15/19 12:15 Risperidone (Risperidal) 2 mg PO BEDTIME [facility] Last Admin: 08/15/19 21:36 Dose: Not Given Risperidone (Risperidal) 1 mg PO DAILY [facility] Last Admin: 08/15/19 10:49 Dose: Not Given Rocuronium [place] (Zemuron) Confirm Administered Dose 50 mg .ROUTE .STK-MED ONE Stop: 08/15/19 12:14 Rocuronium [place] (Zemuron) Confirm Administered Dose 50 mg .ROUTE .STK-MED ONE Stop: 08/15/19 16:10 Sodium Chloride (Saline Flush) 10 ml FLUSH ONETIME ONE Stop: 08/11/19 16:42 Last Admin: 08/11/19 16:46 Dose: 10 ml Trazodone HCl (Trazodone) 50 mg PO BEDTIME [facility] Last Admin: 08/15/19 21:50 Dose: Not Given - Exam Wound/Incisions: Healing Well General: Alert, Oriented, Cooperative HEENT: Pupils Equal Lungs: Clear to Auscultation, Normal Respiratory Effort Cardiovascular: Regular Rate, Regular Rhythm, No Murmurs GI/Abdominal Exam: Normal Bowel Sounds, Soft, Non-Tender, No Organomegaly, No Distention Extremities: Normal Inspection Skin: Warm, Dry, Intact Sepsis Event Note - Evaluation Sepsis Screening Result: No Definite Risk - Focused Exam Vital Signs: Vital Signs Temp Pulse Resp BP Pulse Ox 08/20/19 08:25 97.9 F 83 18 129/68 95 08/20/19 05:40 98.6 F 90 18 123/65 94 L 08/20/19 00:09 98.2 F 85 18 122/49 L 94 L Date Exam was Performed: 08/20/19 Time Exam was Performed: 10:22 - Problem List Review Problem List Initiated/Reviewed/Updated: No - My Orders Last 24 Hours: Active Orders 24 hr Category Date Time Status BMP [BASIC METABOLIC PANEL,BMP] [CHEM] AM Lab 08/21/19 05:11 Ordered BMP [BASIC METABOLIC PANEL,BMP] [CHEM] AM Lab 08/22/19 05:11 Ordered BMP [BASIC METABOLIC PANEL,BMP] [CHEM] AM Lab 08/23/19 05:11 Ordered MAGNESIUM [CHEM] AM Lab 08/21/19 05:11 Ordered MAGNESIUM [CHEM] AM Lab 08/22/19 05:11 Ordered MAGNESIUM [CHEM] AM Lab 08/23/19 05:11 Ordered PHOSPHORUS [CHEM] AM Lab 08/21/19 05:11 Ordered PHOSPHORUS [CHEM] AM Lab 08/22/19 05:11 Ordered PHOSPHORUS [CHEM] AM Lab 08/23/19 05:11 Ordered Dextrose 10% in Water 500 ml Med 08/20/19 07:30 Active IV ASDIRECTED MVI, Adult with Vitamin K [Infuvite Adult] 10 ml Med 08/20/19 08:15 Active Chromium/Copper/Pelon/Zinc [Multitrace-4 Concentrate] 1 ml AA 5%/Calcium/D20W/Lytes [Clinimix E 10/11] 1,000 ml IV ONETIME Magnesium Sulfate/Water [Magnesium Sulfate in Water Med 08/20/19 11:00 Active Premix] 2 gm Premix Bag 1 bag IV ONETIME Medication Orders Acetaminophen (Tylenol) 650 mg PO Q4H PRN PRN Reason: Pain (Mild 1-3)/fever Last Admin: 08/13/19 09:43 Dose: 650 mg Albuterol/Ipratropium (Duoneb 3.0-0.5 Mg/3 Ml) 3 ml NEB QIDRT PRN PRN Reason: SOB/wheezing Famotidine (Pepcid) 20 mg IVPUSH BEDTIME [facility] Last Admin: 08/19/19 20:48 Dose: 20 mg Admin: 08/18/19 20:39 Dose: 20 mg Admin: 08/17/19 20:33 Dose: 20 mg Admin: 08/16/19 21:57 Dose: 20 mg Haloperidol Lactate (Haldol) 5 mg IVPUSH BEDTIME [facility] Last Admin: 08/19/19 20:44 Dose: 5 mg Admin: 08/18/19 20:36 Dose: 5 mg Admin: 08/17/19 20:30 Dose: 5 mg Admin: 08/16/19 21:57 Dose: 5 mg Haloperidol Lactate (Haldol) 2 mg IVPUSH 0600,1400 [facility] Last Admin: 08/20/19 05:40 Dose: 2 mg Admin: 08/19/19 13:03 Dose: 2 mg Admin: 08/19/19 05:39 Dose: 2 mg Admin: 08/18/19 14:19 Dose: 2 mg Admin: 08/18/19 06:55 Dose: 2 mg Admin: 08/17/19 14:48 Dose: 2 mg Admin: 08/17/19 06:03 Dose: 2 mg Admin: 08/16/19 14:36 Dose: Not Given Heparin Sodium (Porcine) (Heparin Sodium) 5,000 units SUBCUT Q8H [facility] Last Admin: 08/20/19 08:32 Dose: 5,000 units Admin: 08/20/19 00:14 Dose: 5,000 units Admin: 08/19/19 16:47 Dose: Admin: 08/19/19 08:32 Dose: 5,000 units Admin: 08/19/19 00:01 Dose: 5,000 units Admin: 08/18/19 16:17 Dose: Admin: 08/18/19 08:11 Dose: 5,000 units Hydromorphone HCl (Dilaudid) 1 mg IVPUSH Q3H PRN PRN Reason: Pain Last Admin: 08/20/19 08:55 Dose: 1 mg Admin: 08/20/19 05:57 Dose: 1 mg Admin: 08/20/19 01:53 Dose: 1 mg Admin: 08/19/19 20:48 Dose: 1 mg Admin: 08/19/19 14:05 Dose: 1 mg Admin: 08/19/19 09:42 Dose: 1 mg Admin: 08/19/19 06:05 Dose: 1 mg Admin: 08/19/19 01:26 Dose: 1 mg Admin: 08/18/19 17:58 Dose: 1 mg Admin: 08/18/19 11:51 Dose: 1 mg Admin: 08/18/19 09:17 Dose: 1 mg Admin: 08/17/19 14:49 Dose: 1 mg Admin: 08/16/19 18:55 Dose: 1 mg Admin: 08/16/19 15:10 Dose: 1 mg Admin: 08/16/19 08:15 Dose: 1 mg Admin: 08/16/19 00:57 Dose: 1 mg Admin: 08/15/19 21:57 Dose: 1 mg Fat Emulsion Intravenous (Intralipid 20%) 500 mls @ 62.5 mls/hr IV MoWeFr [facility] Last Admin: 08/19/19 12:17 Dose: 62.5 mls/hr Infusion: 08/17/19 20:30 Dose: 62.5 mls/hr Admin: 08/17/19 12:30 Dose: 62.5 mls/hr Sodium Chloride (Normal Saline) 1,000 mls @ 50 mls/hr IV ASDIRECTED [facility] Last Admin: 08/20/19 01:31 Dose: 50 mls/hr Infusion: 08/20/19 00:15 Dose: 50 mls/hr Admin: 08/19/19 04:15 Dose: 50 mls/hr Infusion: 08/19/19 04:15 Dose: 50 mls/hr Admin: 08/18/19 08:16 Dose: 50 mls/hr Infusion: 08/18/19 08:16 Dose: 50 mls/hr Admin: 08/17/19 12:31 Dose: 50 mls/hr Amino Ac/Electrol/Dextrose/Calcium (Clinimix E 10/11) 1,000 mls @ 75 mls/hr IV TITRATE [facility] Last Admin: 08/19/19 04:13 Dose: 75 mls/hr Infusion: 08/18/19 13:31 Dose: 75 mls/hr Admin: 08/18/19 00:11 Dose: 75 mls/hr Dextrose/Water (Dextrose 10% In Water) 500 mls @ 75 mls/hr IV ASDIRECTED [facility] Last Admin: 08/20/19 07:37 Dose: 75 mls/hr Multivitamins/Minerals 10 ml/Chromium/Copper/Manganese/Zinc 1 ml/ Amino Ac/ Electrol/Dextrose/Calcium 1,011 mls @ 75 mls/hr IV ONETIME ONE Stop: 08/20/19 21:43 Last Admin: 08/20/19 08:26 Dose: 75 mls/hr Magnesium Sulfate 2 gm/ Premix 50 mls @ 25 mls/hr IV ONETIME ONE Stop: 08/20/19 12:59 Lorazepam (Ativan) 1 mg IVPUSH Q2H PRN PRN Reason: Anxiety Last Admin: 08/19/19 15:30 Dose: 1 mg Admin: 08/16/19 22:14 Dose: 1 mg Admin: 08/16/19 10:26 Dose: 1 mg Admin: 08/16/19 00:58 Dose: 1 mg Miscellaneous Information (Remove Patch) 1 ea TRDERM DAILY [facility] Last Admin: 08/20/19 08:36 Dose: 1 ea Admin: 08/19/19 08:35 Dose: 1 ea Admin: 08/18/19 11:31 Dose: 1 ea Nicotine (Habitrol) 21 mg TRDERM DAILY [facility] Last Admin: 08/20/19 08:26 Dose: 21 mg Admin: 08/19/19 08:32 Dose: 21 mg Admin: 08/18/19 08:08 Dose: 21 mg Admin: 08/17/19 08:33 Dose: 21 mg Admin: 08/16/19 09:57 Dose: 21 mg Admin: 08/15/19 10:48 Dose: Not Given Admin: 08/14/19 09:02 Dose: Not Given Admin: 08/13/19 08:47 Dose: 21 mg Admin: 08/12/19 09:24 Dose: 21 mg Admin: 08/11/19 09:39 Dose: 21 mg Admin: 08/10/19 09:23 Dose: 21 mg Admin: 08/09/19 09:23 Dose: 21 mg Admin: 08/08/19 09:45 Dose: 21 mg Benztropine 2mg/2ml (Vial) 0 each IVPUSH BEDTIME [facility] Last Admin: 08/19/19 20:45 Dose: 1 each Admin: 08/18/19 20:43 Dose: 1 each Admin: 08/17/19 20:35 Dose: 1 each Admin: 08/16/19 22:01 Dose: 1 each Ondansetron HCl (Zofran) 4 mg IVPUSH Q4H PRN PRN Reason: Nausea/Vomiting Last Admin: 08/18/19 12:30 Dose: 4 mg Admin: 08/18/19 05:33 Dose: 4 mg Admin: 08/18/19 00:20 Dose: 4 mg Admin: 08/17/19 15:51 Dose: 4 mg Admin: 08/13/19 21:01 Dose: 4 mg Pharmacy Consult (Consult To Pharmacy) 0 each .XX DAILY PRN PRN Reason: TPN MONITORING Sodium Chloride (Saline Flush) 10 ml FLUSH ASDIRECTED PRN PRN Reason: Keep Vein Open Last Admin: 08/11/19 16:44 Dose: 10 ml Admin: 08/11/19 16:43 Dose: 10 ml Admin: 08/07/19 17:21 Dose: 10 ml - Plan Plan (Free Text/Narrative):: Patient had pSBO now POD5 s/p ex lap, SANTANA, RUQ cyst resection, CVC placement. Had 3 BMs but belly still distended on exam. - Can have sips and ice chips - Continue ambulation TID - continue drains - can do vitals when patient not sleeping to allow him to sleep and rest
[2019-08-20] MEDS ORDERED: Magnesium Sulfate/Water 2 GM in Premix Bag 1 BAG IV ONE (11:00)
[2019-08-20] MEDS: LORazepam 2 MG/ML SDV IVPUSH PRN (11:39)
--- NOTE | 2019-08-20 11:56 | PCM.PN ---
- General Info Date of Service: 08/20/19 Admission Dx/Problem (Free Text): Admission Diagnosis/Problem Admission Diagnosis/Problem Pneumonia involving left lung Functional Status: Reports: Pain Controlled, Tolerating Diet, Ambulating, Urinating, Incentive Spirometry, Other (acapella ). Denies: New Symptoms - Review of Systems General: Reports: No Symptoms. Denies: Fever, Weakness, Fatigue, Malaise, Chills HEENT: Reports: No Symptoms. Denies: Headaches, Sore Throat Pulmonary: Reports: No Symptoms. Denies: Shortness of Breath, Cough, Sputum, Wheezing Cardiovascular: Reports: No Symptoms. Denies: Chest Pain, Palpitations, Dyspnea on Exertion, Edema Gastrointestinal: Reports: Flatus, Other (Had BM overnight and yesterday ). Denies: Abdominal Pain, Constipation, Diarrhea, Nausea, Vomiting Genitourinary: Reports: No Symptoms. Denies: Pain Musculoskeletal: Reports: No Symptoms Skin: Reports: No Symptoms. Denies: Cyanosis Neurological: Reports: Confusion (Occasional 2/2 baseline schizophrenia). Denies: Difficulty Walking, Gait Disturbance Psychiatric: Reports: No Symptoms - Patient Data Vitals - Most Recent: Last Vital Signs Temp 97.9 F 08/20/19 08:25 Pulse 83 08/20/19 08:25 Resp 18 08/20/19 08:25 BP 129/68 08/20/19 08:25 Pulse Ox 95 08/20/19 08:25 Orthostatic Blood Pressure [ 109/60 Standing] Orthostatic Blood Pressure [ 120/69 Sitting] Orthostatic Blood Pressure [ 120/79 Supine] Weight - Most Recent: 130 lb 12.8 oz I&O - Last 24 Hours: Intake & Output 08/19/19 08/20/19 08/20/19 22:59 06:59 14:59 Intake Total 1669 1093 Output Total 245 600 Balance 1424 493 Lab Results Last 24 Hours: Laboratory Results - last 24 hr 08/19/19 08/19/19 08/20/19 Range/Units 12:29 18:14 00:06 Sodium (136-145) mEq/L Potassium (3.5-5.1) mEq/L Chloride (98-107) mEq/L Carbon Dioxide (21-32) mEq/L Anion Gap (5-15) BUN (7-18) mg/dL Creatinine (0.7-1.3) mg/dL Est Cr Clr Drug Dosing mL/min Estimated GFR (MDRD) (>60) mL/min BUN/Creatinine Ratio (14-18) Glucose (80-115) mg/dL POC Glucose 127 H 101 119 H (80-115) mg/dL Calcium (8.5-10.1) mg/dL Phosphorus (2.6-4.7) mg/dL Magnesium (1.8-2.4) mg/dl 08/20/19 08/20/19 Range/Units 05:55 05:56 Sodium 139 (136-145) mEq/L Potassium 4.1 (3.5-5.1) mEq/L Chloride 107 (98-107) mEq/L Carbon Dioxide 25 (21-32) mEq/L Anion Gap 11.1 (5-15) BUN 18 (7-18) mg/dL Creatinine 0.7 (0.7-1.3) mg/dL Est Cr Clr Drug Dosing 82.40 mL/min Estimated GFR (MDRD) > 60 (>60) mL/min BUN/Creatinine Ratio 25.7 H (14-18) Glucose 150 H (80-115) mg/dL POC Glucose 135 H (80-115) mg/dL Calcium 7.8 L (8.5-10.1) mg/dL Phosphorus 3.5 (2.6-4.7) mg/dL Magnesium 1.8 (1.8-2.4) mg/dl Med Orders - Current: Current Medications Acetaminophen (Tylenol) 650 mg PO Q4H PRN PRN Reason: Pain (Mild 1-3)/fever Last Admin: 08/13/19 09:43 Dose: 650 mg Albuterol/Ipratropium (Duoneb 3.0-0.5 Mg/3 Ml) 3 ml NEB QIDRT PRN PRN Reason: SOB/wheezing Famotidine (Pepcid) 20 mg IVPUSH BEDTIME [facility] Last Admin: 08/19/19 20:48 Dose: 20 mg Haloperidol Lactate (Haldol) 5 mg IVPUSH BEDTIME [facility] Last Admin: 08/19/19 20:44 Dose: 5 mg Haloperidol Lactate (Haldol) 2 mg IVPUSH 0600,1400 [facility] Last Admin: 08/20/19 05:40 Dose: 2 mg Heparin Sodium (Porcine) (Heparin Sodium) 5,000 units SUBCUT Q8H [facility] Last Admin: 08/20/19 08:32 Dose: 5,000 units Hydromorphone HCl (Dilaudid) 1 mg IVPUSH Q3H PRN PRN Reason: Pain Last Admin: 08/20/19 08:55 Dose: 1 mg Fat Emulsion Intravenous (Intralipid 20%) 500 mls @ 62.5 mls/hr IV MoWeFr [facility] Last Admin: 08/19/19 12:17 Dose: 62.5 mls/hr Sodium Chloride (Normal Saline) 1,000 mls @ 50 mls/hr IV ASDIRECTED [facility] Last Admin: 08/20/19 01:31 Dose: 50 mls/hr Amino Ac/Electrol/Dextrose/Calcium (Clinimix E 10/11) 1,000 mls @ 75 mls/hr IV TITRATE [facility] Last Admin: 08/19/19 04:13 Dose: 75 mls/hr Dextrose/Water (Dextrose 10% In Water) 500 mls @ 75 mls/hr IV ASDIRECTED [facility] Last Admin: 08/20/19 07:37 Dose: 75 mls/hr Multivitamins/Minerals 10 ml/Chromium/Copper/Manganese/Zinc 1 ml/ Amino Ac/ Electrol/Dextrose/Calcium 1,011 mls @ 75 mls/hr IV ONETIME ONE Stop: 08/20/19 21:43 Last Admin: 08/20/19 08:26 Dose: 75 mls/hr Magnesium Sulfate 2 gm/ Premix 50 mls @ 25 mls/hr IV ONETIME ONE Stop: 08/20/19 12:59 Last Admin: 08/20/19 11:27 Dose: 25 mls/hr Lorazepam (Ativan) 1 mg IVPUSH Q2H PRN PRN Reason: Anxiety Last Admin: 08/20/19 11:39 Dose: 1 mg Miscellaneous Information (Remove Patch) 1 ea TRDERM DAILY [facility] Last Admin: 08/20/19 08:36 Dose: 1 ea Nicotine (Habitrol) 14 mg TRDERM DAILY [facility] Benztropine 2mg/2ml (Vial) 0 each IVPUSH BEDTIME [facility] Last Admin: 08/19/19 20:45 Dose: 1 each Ondansetron HCl (Zofran) 4 mg IVPUSH Q4H PRN PRN Reason: Nausea/Vomiting Last Admin: 08/18/19 12:30 Dose: 4 mg Pharmacy Consult (Consult To Pharmacy) 0 each .XX DAILY PRN PRN Reason: TPN MONITORING Sodium Chloride (Saline Flush) 10 ml FLUSH ASDIRECTED PRN PRN Reason: Keep Vein Open Last Admin: 08/11/19 16:44 Dose: 10 ml Discontinued Medications Albuterol (Proventil Neb Soln) 2.5 mg NEB ONETIME PRN PRN Reason: bronchodilation Stop: 08/15/19 18:00 Albuterol/Ipratropium (Duoneb 3.0-0.5 Mg/3 Ml) 3 ml NEB QIDRT [facility] Last Admin: 08/17/19 09:10 Dose: 3 ml Azithromycin (Zithromax) 250 mg PO BEDTIME [facility] Last Admin: 08/11/19 21:06 Dose: 250 mg Benzonatate (Tessalon Perles) 100 mg PO BID [facility] Last Admin: 08/15/19 21:36 Dose: Not Given Benztropine Mesylate (Cogentin) 1 mg PO BEDTIME [facility] Last Admin: 08/15/19 21:37 Dose: Not Given Benztropine Mesylate (Cogentin) 1 mg IVPUSH BEDTIME [facility] Cefazolin Sodium (Ancef) Confirm Administered Dose 2 gm .ROUTE .STK-MED ONE Stop: 08/15/19 15:23 Cefazolin Sodium (Ancef) Confirm Administered Dose 2 gm .ROUTE .STK-MED ONE Stop: 08/15/19 18:13 Cefdinir (Omnicef) 300 mg PO BID [facility] Last Admin: 08/14/19 08:58 Dose: 300 mg Ceftriaxone Sodium (Rocephin) Confirm Administered Dose 2 gm IV .STK-MED ONE Stop: 08/07/19 19:45 Last Admin: 08/07/19 19:51 Dose: Not Given Diatrizoate Meglum/Diatrizoate Sod (Gastrografin 37%) 90 ml PO ONETIME ONE Stop: 08/11/19 16:42 Last Admin: 08/11/19 16:43 Dose: 90 ml Ephedrine Sulfate (Ephedrine Sulfate) 5 mg IVPUSH ASDIRECTED PRN PRN Reason: Hypotension Stop: 08/15/19 18:00 Famotidine (Pepcid) 20 mg IVPUSH ONETIME ONE Stop: 08/20/19 10:01 Last Admin: 08/20/19 09:59 Dose: 20 mg Fentanyl (Sublimaze) Confirm Administered Dose 250 mcg .ROUTE .STK-MED ONE Stop: 08/15/19 12:16 Fentanyl (Sublimaze) 50 mcg IVPUSH Q5M PRN PRN Reason: Pain Stop: 08/15/19 18:00 Fentanyl (Sublimaze) Confirm Administered Dose 100 mcg .ROUTE .STK-MED ONE Stop: 08/15/19 17:11 Glycopyrrolate () Confirm Administered Dose 1 mg .ROUTE .STK-MED ONE Stop: 08/15/19 16:12 Guaifenesin (Mucinex) 600 mg PO BID [facility] Last Admin: 08/15/19 21:37 Dose: Not Given Guaifenesin (Mucinex) 600 mg PO BID [facility] Last Admin: 08/08/19 12:51 Dose: Not Given Haloperidol Lactate (Haldol) 5 mg IVPUSH BEDTIME [facility] Last Admin: 08/15/19 21:51 Dose: 5 mg Haloperidol Lactate (Haldol) 5 mg IV ONETIME PRN PRN Reason: Other Stop: 08/16/19 08:00 Haloperidol Lactate (Haldol) 5 mg IVPUSH Q8H [facility] Last Admin: 08/16/19 09:59 Dose: Not Given Haloperidol Lactate (Haldol) 2 mg IVPUSH ONETIME ONE Stop: 08/16/19 09:01 Last Admin: 08/16/19 09:57 Dose: 2 mg Hydromorphone HCl (Dilaudid) Confirm Administered Dose 0.5 mg .ROUTE .STK-MED ONE Stop: 08/15/19 15:22 Hydromorphone HCl (Dilaudid) 0.5 mg IVPUSH Q15M PRN PRN Reason: Pain (severe 7-10) Stop: 08/15/19 18:00 Hydromorphone HCl (Dilaudid) Confirm Administered Dose 0.5 mg .ROUTE .STK-MED ONE Stop: 08/15/19 16:18 Hydromorphone HCl (Dilaudid) Confirm Administered Dose 0.5 mg .ROUTE .STK-MED ONE Stop: 08/15/19 18:43 Hydromorphone HCl (Dilaudid) 0.5 mg IVPUSH ONETIME ONE Stop: 08/15/19 20:51 Last Admin: 08/15/19 20:59 Dose: 0.5 mg Hydromorphone HCl (Dilaudid) Confirm Administered Dose 0.5 mg .ROUTE .STK-MED ONE Stop: 08/15/19 21:00 Last Admin: 08/15/19 21:34 Dose: Not Given Hydromorphone HCl (Dilaudid) 0.5 mg IVPUSH Q3H PRN PRN Reason: Abdominal Pain Sodium Chloride (Normal Saline) 1,000 mls @ 150 mls/hr IV ASDIRECTED [facility] Last Admin: 08/08/19 06:02 Dose: 150 mls/hr Ceftriaxone Sodium 2 gm/ (Sodium Chloride) 100 mls @ 200 mls/hr IV ONETIME ONE Stop: 08/07/19 20:00 Last Admin: 08/07/19 19:47 Dose: Not Given Magnesium Sulfate 2 gm/ Premix 50 mls @ 25 mls/hr IV ONETIME ONE Stop: 08/07/19 21:42 Last Admin: 08/07/19 20:24 Dose: 25 mls/hr Ceftriaxone Sodium 2 gm/ (Sodium Chloride) 100 mls @ 200 mls/hr IV Q24H [facility] Stop: 08/07/19 20:15 Last Admin: 08/07/19 19:49 Dose: 200 mls/hr Sodium Chloride (Normal Saline) Confirm Administered Dose 100 mls @ as directed .ROUTE .STK-MED ONE Stop: 08/07/19 19:45 Last Admin: 08/07/19 19:51 Dose: Not Given Azithromycin 500 mg/ Sodium (Chloride) 250 mls @ 250 mls/hr IV Q24H [facility] Last Admin: 08/10/19 22:08 Dose: 250 mls/hr Ceftriaxone Sodium 2 gm/ (Sodium Chloride) 100 mls @ 200 mls/hr IV Q24H [facility] Last Admin: 08/10/19 21:25 Dose: 200 mls/hr Sodium Chloride (Normal Saline) 1,000 mls @ 75 mls/hr IV ASDIRECTED [facility] Sodium Phosphate 30 mmole/ (Sodium Chloride) 260 mls @ 130 mls/hr IV Q2H [facility] Stop: 08/10/19 15:59 Last Admin: 08/10/19 15:12 Dose: 130 mls/hr Magnesium Sulfate 2 gm/ Premix 50 mls @ 25 mls/hr IV ONETIME ONE Stop: 08/11/19 11:08 Last Admin: 08/11/19 09:38 Dose: 25 mls/hr Sodium Chloride (Normal Saline) 1,000 mls @ 75 mls/hr IV ASDIRECTED [facility] Last Admin: 08/12/19 09:24 Dose: 75 mls/hr Sodium Chloride (Normal Saline) Confirm Administered Dose 1,000 mls @ as directed .ROUTE .[facility]-MED ONE Stop: 08/11/19 17:34 Last Admin: 08/11/19 17:43 Dose: Not Given Dextrose/Sodium Chloride (Dextrose 5%-Normal Saline) 1,000 mls @ 100 mls/hr IV ASDIRECTED [facility] Last Infusion: 08/13/19 12:35 Dose: 50 mls/hr Dextrose/Sodium Chloride (Dextrose 5%-Normal Saline) 1,000 mls @ 50 mls/hr IV ASDIRECTED [facility] Dextrose/Sodium Chloride (Dextrose 5%-Normal Saline) 1,000 mls @ 125 mls/hr IV ASDIRECTED [facility] Last Admin: 08/16/19 01:04 Dose: 125 mls/hr Lidocaine HCl (Xylocaine-Mpf 1%) Confirm Administered Dose 4 mls @ as directed .ROUTE .[facility] ONE Stop: 08/15/19 14:43 Lactated Ringer's (Ringers, Lactated) Confirm Administered Dose 1,000 mls @ as directed .ROUTE .[facility] ONE Stop: 08/15/19 15:18 Lactated Ringer's (Ringers, Lactated) Confirm Administered Dose 1,000 mls @ as directed .ROUTE .[facility] ONE Stop: 08/15/19 15:18 Phenylephrine HCl 1 mg/ Sodium (Chloride) 10.1 mls @ 1 mls/sec IV TITRATE [facility]; Protocol Stop: 08/15/19 18:00 Lactated Ringer's (Ringers, Lactated) Confirm Administered Dose 1,000 mls @ as directed .ROUTE .[facility] ONE Stop: 08/15/19 15:57 Lactated Ringer's (Ringers, Lactated) Confirm Administered Dose 1,000 mls @ as directed .ROUTE .[facility]-MED ONE Stop: 08/15/19 18:09 Magnesium Sulfate 2 gm/ Premix 50 mls @ 25 mls/hr IV ONETIME ONE Stop: 08/16/19 10:10 Last Admin: 08/16/19 08:45 Dose: Not Given Magnesium Sulfate 4 gm/ Premix 50 mls @ 12.5 mls/hr IV ONETIME ONE Stop: 08/16/19 12:28 Last Admin: 08/16/19 08:46 Dose: 12.5 mls/hr Dextrose/Sodium Chloride (Dextrose 5%-Normal Saline) 1,000 mls @ 100 mls/hr IV ASDIRECTED [facility] Stop: 08/16/19 13:00 Last Infusion: 08/16/19 12:20 Dose: 20 mls/hr Dextrose/Sodium Chloride (Dextrose 5%-Normal Saline) 1,000 mls @ 20 mls/hr IV ASDIRECTED [facility] Last Admin: 08/17/19 06:33 Dose: 20 mls/hr Multivitamins/Minerals 10 ml/Chromium/Copper/Manganese/Zinc 1 ml/ Amino Ac/ Electrol/Dextrose/Calcium 1,011 mls @ 45 mls/hr IV ONETIME ONE Stop: 08/17/19 11:27 Last Admin: 08/16/19 13:15 Dose: 45 mls/hr Adjust Tpn Rate 720 mls @ 60 mls/hr .XX ONETIME ONE Stop: 08/17/19 12:59 Last Admin: 08/17/19 00:56 Dose: 60 mls/hr Multivitamins/Minerals 10 ml/Chromium/Copper/Manganese/Zinc 1 ml/ Amino Ac/ Electrol/Dextrose/Calcium 1,011 mls @ 60 mls/hr IV TITRATE [facility] Stop: 08/18/19 01:50 Last Admin: 08/17/19 08:52 Dose: 60 mls/hr Adjust Tpn Rate 720 mls @ 75 mls/hr .XX ONETIME ONE Stop: 08/17/19 22:35 Last Admin: 08/17/19 14:13 Dose: Not Given Multivitamins/Minerals 10 ml/Chromium/Copper/Manganese/Zinc 1 ml/ Amino Ac/ Electrol/Dextrose/Calcium 1,011 mls @ 75 mls/hr IV TITRATE [facility] Stop: 08/19/19 01:29 Last Admin: 08/18/19 14:35 Dose: 75 mls/hr Magnesium Sulfate/Dextrose (Magnesium Sulfate In D5w 100 Premix) 1 gm in 100 mls @ 100 mls/hr IV ONETIME ONE Stop: 08/19/19 09:59 Last Admin: 08/19/19 09:42 Dose: 100 mls/hr Multivitamins/Minerals 10 ml/Chromium/Copper/Manganese/Zinc 1 ml/ Amino Ac/ Electrol/Dextrose/Calcium 1,011 mls @ 75 mls/hr IV TITRATE [facility] Stop: 08/20/19 07:29 Last Admin: 08/19/19 17:54 Dose: 75 mls/hr Influenza Virus Vaccine (Pharmacy To Dose - Influenza Vaccine) 1 each IM ONETIME ONE Stop: 08/07/19 22:46 Influenza Virus Vaccine (Fluzone High-Dose Syringe) 180 mcg IM .ONCE ONE Stop: 08/08/19 10:01 Iopamidol (Isovue-300 (61%)) 100 ml IVPUSH ONETIME ONE Stop: 08/11/19 16:42 Last Admin: 08/11/19 16:44 Dose: 100 ml Ipratropium [place] (Atrovent) 0.5 mg NEB Q4HRRT [facility] Last Admin: 08/11/19 13:29 Dose: 0.5 mg Ketamine HCl (Ketalar) Confirm Administered Dose 500 mg .ROUTE .STK-MED ONE Stop: 08/15/19 15:35 Ketorolac Tromethamine (Toradol) Confirm Administered Dose 30 mg .ROUTE .STK- MED ONE Stop: 08/15/19 18:40 Ketorolac Tromethamine (Toradol) 15 mg IVPUSH Q6H PRN PRN Reason: Pain Stop: 08/18/19 00:31 Last Admin: 08/17/19 20:26 Dose: 15 mg Lidocaine HCl (Xylocaine 1%) Confirm Administered Dose 50 ml .ROUTE .STK-MED ONE Stop: 08/15/19 07:11 Last Admin: 08/15/19 15:09 Dose: 4.5 ml Lidocaine HCl (Xylocaine 1%) Confirm Administered Dose 50 ml .ROUTE .STK-MED ONE Stop: 08/15/19 11:28 Lidocaine HCl (Xylocaine 1%) 20 ml INJECT ONETIME ONE Stop: 08/18/19 17:01 Last Admin: 08/18/19 17:49 Dose: 10 ml Magnesium Hydroxide (Milk Of Magnesia) 30 ml PO ONETIME ONE Stop: 08/14/19 07:43 Last Admin: 08/14/19 08:58 Dose: 30 ml Methadone HCl (Methadone) 5 mg PO BID [facility] Last Admin: 08/15/19 21:37 Dose: Not Given Midazolam HCl (Versed 1 Mg/Ml) Confirm Administered Dose 2 mg .ROUTE .STK-MED ONE Stop: 08/15/19 12:15 Miscellaneous Medication (Phenylephrine 1 Mg/10 Ml-Ns) Confirm Administered Dose 1 mg IV .STK-MED ONE Stop: 08/15/19 15:05 Miscellaneous Medication (Phenylephrine 1 Mg/10 Ml-Ns) Confirm Administered Dose 1 mg IV .STK-MED ONE Stop: 08/15/19 16:18 Miscellaneous Medication (Phenylephrine 1 Mg/10 Ml-Ns) Confirm Administered Dose 1 mg IV .STK-MED ONE Stop: 08/15/19 17:47 Miscellaneous Medication (Phenylephrine 1 Mg/10 Ml-Ns) Confirm Administered Dose 1 mg IV .STK-MED ONE Stop: 08/15/19 18:34 Neostigmine Methylsulfate (Neostigmine Methylsulfate) Confirm Administered Dose 5 mg .ROUTE .STK-MED ONE Stop: 08/15/19 16:12 Nicotine (Habitrol) 21 mg TRDERM DAILY [facility] Last Admin: 08/20/19 08:26 Dose: 21 mg Ondansetron HCl (Zofran) 4 mg IVPUSH ONETIME ONE Stop: 08/07/19 16:51 Last Admin: 08/07/19 17:20 Dose: 4 mg Ondansetron HCl (Zofran) 4 mg IVPUSH ONETIME ONE Stop: 08/07/19 19:12 Last Admin: 08/07/19 19:51 Dose: 4 mg Ondansetron HCl (Zofran Odt) 4 mg PO Q6H PRN PRN Reason: nausea, able to take PO Last Admin: 08/13/19 09:44 Dose: 4 mg Ondansetron HCl (Zofran) 4 mg IV Q6H [facility] Last Admin: 08/08/19 06:03 Dose: Not Given Ondansetron HCl (Zofran) 4 mg IV Q6H [facility] Last Admin: 08/08/19 12:40 Dose: 4 mg Ondansetron HCl (Zofran) 4 mg IVPUSH Q8H PRN PRN Reason: Nausea/Vomiting Last Admin: 08/13/19 15:04 Dose: 4 mg Ondansetron HCl (Zofran) 4 mg IVPUSH ONETIME PRN PRN Reason: Nausea/Vomiting Stop: 08/15/19 18:00 Ondansetron HCl (Zofran) Confirm Administered Dose 4 mg .ROUTE .STK-MED ONE Stop: 08/15/19 16:13 Oseltamivir Phosphate (Tamiflu) 75 mg PO BID [facility] Stop: 08/12/19 09:01 Last Admin: 08/12/19 09:24 Dose: 75 mg Propofol (Diprivan 20 Ml) Confirm Administered Dose 200 mg .ROUTE .STK-MED ONE Stop: 08/15/19 12:15 Risperidone (Risperidal) 2 mg PO BEDTIME [facility] Last Admin: 08/15/19 21:36 Dose: Not Given Risperidone (Risperidal) 1 mg PO DAILY [facility] Last Admin: 08/15/19 10:49 Dose: Not Given Rocuronium [place] (Zemuron) Confirm Administered Dose 50 mg .ROUTE .STK-MED ONE Stop: 08/15/19 12:14 Rocuronium [place] (Zemuron) Confirm Administered Dose 50 mg .ROUTE .STK-MED ONE Stop: 08/15/19 16:10 Sodium Chloride (Saline Flush) 10 ml FLUSH ONETIME ONE Stop: 08/11/19 16:42 Last Admin: 08/11/19 16:46 Dose: 10 ml Trazodone HCl (Trazodone) 50 mg PO BEDTIME [facility] Last Admin: 08/15/19 21:50 Dose: Not Given - Exam Quality Assessment: DVT Prophylaxis General: Alert, Oriented, Cooperative, No Acute Distress HEENT: Pupils Equal, Pupils Reactive, Mucous Membr. Moist/[place] Neck: Supple Lungs: Clear to Auscultation, Normal Respiratory Effort, Decreased Breath Sounds Cardiovascular: Regular Rate, Regular Rhythm GI/Abdominal Exam: Normal Bowel Sounds, Soft, No Distention, Tender (mild generalized tenderness, especially around incision site) (Male) Exam: Deferred Back Exam: Normal Inspection, Full Range of Motion Extremities: Normal Inspection, Normal Range of Motion, Non-Tender, No Pedal Edema, Normal Capillary Refill Skin: Warm, Dry, Intact Wound/Incisions: Healing Well, No Drainage. No: Erythema Neurological: No New Focal Deficit Psy/Mental Status: Alert Sepsis Event Note - Evaluation Sepsis Screening Result: No Definite Risk - Focused Exam Vital Signs: Vital Signs Temp Pulse Resp BP Pulse Ox 08/20/19 08:25 97.9 F 83 18 129/68 95 08/20/19 05:40 98.6 F 90 18 123/65 94 L 08/20/19 00:09 98.2 F 85 18 122/49 L 94 L Date Exam was Performed: 08/20/19 Time Exam was Performed: 11:51 - Problem List & Annotations (1) Acute hypoxemic respiratory failure SNOMED Code(s): 614369617 Code(s): J96.01 - ACUTE RESPIRATORY FAILURE WITH HYPOXIA Status: Acute Priority: High Current Visit: Yes (2) Chronic pain SNOMED Code(s): 09776217 Code(s): G89.29 - OTHER CHRONIC PAIN Status: Chronic Priority: Medium Current Visit: Yes Qualifiers: Chronic pain type: other chronic pain Qualified Code(s): G89.29 - Other chronic pain (3) Hypoalbuminemia SNOMED Code(s): 426463299 Code(s): E88.09 - OTH DISORDERS OF PLASMA-PROTEIN METABOLISM, NEC Status: Acute Priority: High Current Visit: Yes (4) Hypomagnesemia SNOMED Code(s): 937840563 Code(s): E83.42 - HYPOMAGNESEMIA Status: Resolved Priority: High Current Visit: Yes (5) Hyponatremia SNOMED Code(s): 88849829 Code(s): E87.1 - HYPO-OSMOLALITY AND HYPONATREMIA Status: Resolved Priority: High Current Visit: Yes (6) Hypophosphatemia SNOMED Code(s): 0848914 Code(s): E83.39 - OTHER DISORDERS OF PHOSPHORUS METABOLISM Status: Resolved Priority: High Current Visit: Yes (7) Intractable nausea and vomiting SNOMED Code(s): 478533738 Code(s): R11.2 - NAUSEA WITH VOMITING, UNSPECIFIED Status: Resolved Priority: High Current Visit: Yes (8) Leukocytosis SNOMED Code(s): 344140783, 741794599 Code(s): D72.829 - ELEVATED WHITE BLOOD CELL COUNT, UNSPECIFIED Status: Acute Priority: High Current Visit: Yes Qualifiers: Leukocytosis type: unspecified Qualified Code(s): D72.829 - Elevated white blood cell count, unspecified (9) Lung nodule SNOMED Code(s): 355689400 Code(s): R91.1 - SOLITARY PULMONARY NODULE Status: Acute Priority: High Current Visit: Yes (10) Macrocytosis without anemia SNOMED Code(s): 340374877 Code(s): D75.89 - OTHER SPECIFIED DISEASES OF BLOOD AND BLOOD-FORMING ORGANS Status: Acute Priority: High Current Visit: Yes (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 Code(s): 69093188, 975952172 Code(s): F11.20 - OPIOID DEPENDENCE, UNCOMPLICATED Status: Chronic Priority: Medium Current Visit: Yes (12) Pneumonia SNOMED Code(s): 102001690 Code(s): J18.9 - PNEUMONIA, UNSPECIFIED ORGANISM Status: Acute Priority: High Current Visit: Yes Qualifiers: Pneumonia type: due to unspecified organism Laterality: unspecified laterality Lung location: unspecified part of lung Qualified Code(s): J18.9 - Pneumonia, unspecified organism (13) Productive cough SNOMED Code(s): 41478777, 791819828, 851739728 Code(s): R05 - COUGH Status: Acute Priority: High Current Visit: Yes (14) Schizophrenia SNOMED Code(s): 56448076 Code(s): F20.9 - SCHIZOPHRENIA, UNSPECIFIED Status: Chronic Priority: Medium Current Visit: Yes Qualifiers: Schizophrenia type: unspecified Qualified Code(s): F20.9 - Schizophrenia, unspecified (15) Smoker SNOMED Code(s): 19823528 Code(s): F17.200 - NICOTINE DEPENDENCE, UNSPECIFIED, UNCOMPLICATED Status: Chronic Priority: Medium Current Visit: Yes (16) Tachycardia SNOMED Code(s): 1311798 Code(s): R00.0 - TACHYCARDIA, UNSPECIFIED Status: Resolved Priority: High Current Visit: Yes (17) Small bowel obstruction SNOMED Code(s): 295172397 Code(s): K56.609 - UNSP INTESTNL OBST, UNSP TO PARTIAL VERSUS COMPLETE OBST Status: Acute Priority: High Current Visit: Yes (18) Laparoscopic surgical procedure converted to open procedure SNOMED Code(s): 931810472 Code(s): Z53.31 - LAPAROSCOPIC SURGICAL PROCEDURE CONVERTED TO OPEN PROCEDURE Status: Acute Priority: High Current Visit: Yes (19) S/P laparotomy SNOMED Code(s): 409795610, 783664460, 726341479 Code(s): Z98.890 - OTHER SPECIFIED POSTPROCEDURAL STATES Status: Acute Priority: High Current Visit: Yes - Problem List Review Problem List Initiated/Reviewed/Updated: Yes - Plan Plan:: Postop day 3 Exploratory laparotomy, extensive lysis of adhesions, liver cyst excision, CVC placement. Patient is doing well. Postop ileus. Active bowel sounds Reports belching and flatus Plan - Continue TPN and lipids - Dr. Egan managing pain and TPN co-managed with dietary and pharmacy - IV fluids as ordered SBO -post exploratory open laparotomy with Dr. Egan Initially presented with intractable nausea and vomiting to ED Has been stable since admission, vomited x1 on 08/11/19 after drinking coffee Tender knob in RUQ noted on physical exam - not gallbladder, calcified mass on CT. Patient reports chronic since [address] scan Multiple adhesions and right upper quadrant mass excised. PLAN - NG tube pulled by patient - Dr. 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 and on oral Risperdal. Will transition to Haldol and Ativan. -Transition all meds to IV as able. -Monitor NPO status and resume PO meds once able. Chronic pain Methadone maintenance therapy patient Denies any current pain PLAN -Pain management per Dr. Egan Muscle wasting Hypoalbuminemia Macrocytosis without anemia Significant muscle wasting Vitamin B12 level and folic acid level WNL Pre-albumin low PLAN -Panel Lay Up Worker consult -Monitor intake once off NPO status Follow electrolytes closely PROPHYLAXIS DVT- compression stockings, Heparin CODE STATUS: FULL CODE LOS >96 HRS due to exploratory laparotomy, resulting ileus, awaiting return of bowel function, IV fluids/nutrition. Discussed case with Dr. Egan, who performed surgery on Mr. Mathews. Because this is a surgical case at this point, he will graciously take over as primary provider today. Hospitalist team will continue to follow closely as consultants and assist in any way as needed.
[2019-08-20] MEDS: Famotidine 20 MG/2 ML SDV IVPUSH SCH (21:18)
[2019-08-20] MEDS: BENZTROPINE 2MG/2ML VIAL IVPUSH SCH (21:18)
[2019-08-20] MEDS: AA 5%/Calcium/D20W/Lytes 1,000 ML IV SCH ×2 (21:58)
[2019-08-21] MEDS: Heparin Sodium 5,000 Units/ML Vial SUBCUT SCH ×3 (01:32→17:32)
[2019-08-21] MEDS: HYDROmorphone 1 MG/ML Syringe IVPUSH PRN ×4 (04:57→23:28)
[2019-08-21] MEDS: Haloperidol Lactate 5 MG/ML SDV IVPUSH SCH ×3 (05:52→20:11)
[2019-08-21] MEDS: Nicotine 14 MG/24 Hr Patch TRDERM SCH (08:20)
--- NOTE | 2019-08-21 08:55 | PCM.PN ---
- General Info Date of Service: 08/21/19 Admission Dx/Problem (Free Text): Admission Diagnosis/Problem Admission Diagnosis/Problem Pneumonia involving left lung Functional Status: Reports: Pain Controlled, Tolerating Diet (clear liquids ), Ambulating, Urinating, Incentive Spirometry, Other (acapella ). Denies: New Symptoms - Review of Systems General: Reports: No Symptoms. Denies: Fever, Weakness, Fatigue, Malaise HEENT: Reports: No Symptoms Pulmonary: Reports: No Symptoms Cardiovascular: Reports: No Symptoms Gastrointestinal: Reports: Abdominal Pain, Flatus. Denies: Constipation, Diarrhea, Nausea, Vomiting Genitourinary: Reports: No Symptoms. Denies: Pain Musculoskeletal: Reports: No Symptoms Skin: Reports: No Symptoms. Denies: Cyanosis Neurological: Reports: No Symptoms Psychiatric: Reports: No Symptoms - Patient Data Vitals - Most Recent: Last Vital Signs Temp 97.9 F 08/20/19 21:15 Pulse 88 08/20/19 21:15 Resp 18 08/20/19 21:15 BP 141/67 H 08/20/19 21:15 Pulse Ox 96 08/20/19 21:15 Orthostatic Blood Pressure [ 109/60 Standing] Orthostatic Blood Pressure [ 120/69 Sitting] Orthostatic Blood Pressure [ 120/79 Supine] Weight - Most Recent: 132 lb 6.4 oz I&O - Last 24 Hours: Intake & Output 08/20/19 08/21/19 08/21/19 22:59 06:59 14:59 Intake Total 2488 1603 Output Total 695 1195 Balance 1793 408 Lab Results Last 24 Hours: Laboratory Results - last 24 hr 08/20/19 08/20/19 08/21/19 Range/Units 11:05 18:45 00:02 Sodium (136-145) mEq/L Potassium (3.5-5.1) mEq/L Chloride (98-107) mEq/L Carbon Dioxide (21-32) mEq/L Anion Gap (5-15) BUN (7-18) mg/dL Creatinine (0.7-1.3) mg/dL Est Cr Clr Drug Dosing mL/min Estimated GFR (MDRD) (>60) mL/min BUN/Creatinine Ratio (14-18) Glucose (80-115) mg/dL POC Glucose 124 H 104 119 H (80-115) mg/dL Calcium (8.5-10.1) mg/dL Phosphorus (2.6-4.7) mg/dL Magnesium (1.8-2.4) mg/dl 08/21/19 Range/Units 05:48 Sodium 138 (136-145) mEq/L Potassium 4.1 (3.5-5.1) mEq/L Chloride 105 (98-107) mEq/L Carbon Dioxide 24 (21-32) mEq/L Anion Gap 13.1 (5-15) BUN 17 (7-18) mg/dL Creatinine 0.7 (0.7-1.3) mg/dL Est Cr Clr Drug Dosing 83.41 mL/min Estimated GFR (MDRD) > 60 (>60) mL/min BUN/Creatinine Ratio 24.3 H (14-18) Glucose 149 H (80-115) mg/dL POC Glucose (80-115) mg/dL Calcium 7.6 L (8.5-10.1) mg/dL Phosphorus 3.5 (2.6-4.7) mg/dL Magnesium 1.8 (1.8-2.4) mg/dl Med Orders - Current: Current Medications Acetaminophen (Tylenol) 650 mg PO Q4H PRN PRN Reason: Pain (Mild 1-3)/fever Last Admin: 08/13/19 09:43 Dose: 650 mg Albuterol/Ipratropium (Duoneb 3.0-0.5 Mg/3 Ml) 3 ml NEB QIDRT PRN PRN Reason: SOB/wheezing Famotidine (Pepcid) 20 mg IVPUSH BEDTIME [facility] Last Admin: 08/20/19 21:18 Dose: 20 mg Haloperidol Lactate (Haldol) 5 mg IVPUSH BEDTIME [facility] Last Admin: 08/20/19 21:17 Dose: 5 mg Haloperidol Lactate (Haldol) 2 mg IVPUSH 0600,1400 [facility] Last Admin: 08/21/19 05:52 Dose: 2 mg Heparin Sodium (Porcine) (Heparin Sodium) 5,000 units SUBCUT Q8H [facility] Last Admin: 08/21/19 08:23 Dose: 5,000 units Hydromorphone HCl (Dilaudid) 1 mg IVPUSH Q3H PRN PRN Reason: Pain Last Admin: 08/21/19 08:18 Dose: 1 mg Fat Emulsion Intravenous (Intralipid 20%) 500 mls @ 62.5 mls/hr IV MoWeFr [facility] Last Admin: 08/19/19 12:17 Dose: 62.5 mls/hr Sodium Chloride (Normal Saline) 1,000 mls @ 50 mls/hr IV ASDIRECTED [facility] Last Admin: 08/20/19 21:58 Dose: 50 mls/hr Amino Ac/Electrol/Dextrose/Calcium (Clinimix E 10/11) 1,000 mls @ 75 mls/hr IV TITRATE [facility] Last Admin: 08/20/19 21:58 Dose: 75 mls/hr Dextrose/Water (Dextrose 10% In Water) 500 mls @ 75 mls/hr IV ASDIRECTED [facility] Last Admin: 08/20/19 07:37 Dose: 75 mls/hr Lorazepam (Ativan) 1 mg IVPUSH Q2H PRN PRN Reason: Anxiety Last Admin: 08/20/19 11:39 Dose: 1 mg Miscellaneous Information (Remove Patch) 1 ea TRDERM DAILY [facility] Last Admin: 08/21/19 08:50 Dose: Not Given Nicotine (Habitrol) 14 mg TRDERM DAILY [facility] Last Admin: 08/21/19 08:20 Dose: 14 mg Benztropine 2mg/2ml (Vial) 0 each IVPUSH BEDTIME [facility] Last Admin: 08/20/19 21:18 Dose: 1 each Ondansetron HCl (Zofran) 4 mg IVPUSH Q4H PRN PRN Reason: Nausea/Vomiting Last Admin: 08/18/19 12:30 Dose: 4 mg Pharmacy Consult (Consult To Pharmacy) 0 each .XX DAILY PRN PRN Reason: TPN MONITORING Sodium Chloride (Saline Flush) 10 ml FLUSH ASDIRECTED PRN PRN Reason: Keep Vein Open Last Admin: 08/11/19 16:44 Dose: 10 ml Discontinued Medications Albuterol (Proventil Neb Soln) 2.5 mg NEB ONETIME PRN PRN Reason: bronchodilation Stop: 08/15/19 18:00 Albuterol/Ipratropium (Duoneb 3.0-0.5 Mg/3 Ml) 3 ml NEB QIDRT [facility] Last Admin: 08/17/19 09:10 Dose: 3 ml Azithromycin (Zithromax) 250 mg PO BEDTIME [facility] Last Admin: 08/11/19 21:06 Dose: 250 mg Benzonatate (Tessalon Perles) 100 mg PO BID [facility] Last Admin: 08/15/19 21:36 Dose: Not Given Benztropine Mesylate (Cogentin) 1 mg PO BEDTIME [facility] Last Admin: 08/15/19 21:37 Dose: Not Given Benztropine Mesylate (Cogentin) 1 mg IVPUSH BEDTIME [facility] Cefazolin Sodium (Ancef) Confirm Administered Dose 2 gm .ROUTE .STK-MED ONE Stop: 08/15/19 15:23 Cefazolin Sodium (Ancef) Confirm Administered Dose 2 gm .ROUTE .STK-MED ONE Stop: 08/15/19 18:13 Cefdinir (Omnicef) 300 mg PO BID [facility] Last Admin: 08/14/19 08:58 Dose: 300 mg Ceftriaxone Sodium (Rocephin) Confirm Administered Dose 2 gm IV .STK-MED ONE Stop: 08/07/19 19:45 Last Admin: 08/07/19 19:51 Dose: Not Given Diatrizoate Meglum/Diatrizoate Sod (Gastrografin 37%) 90 ml PO ONETIME ONE Stop: 08/11/19 16:42 Last Admin: 08/11/19 16:43 Dose: 90 ml Ephedrine Sulfate (Ephedrine Sulfate) 5 mg IVPUSH ASDIRECTED PRN PRN Reason: Hypotension Stop: 08/15/19 18:00 Famotidine (Pepcid) 20 mg IVPUSH ONETIME ONE Stop: 08/20/19 10:01 Last Admin: 08/20/19 09:59 Dose: 20 mg Fentanyl (Sublimaze) Confirm Administered Dose 250 mcg .ROUTE .STK-MED ONE Stop: 08/15/19 12:16 Fentanyl (Sublimaze) 50 mcg IVPUSH Q5M PRN PRN Reason: Pain Stop: 08/15/19 18:00 Fentanyl (Sublimaze) Confirm Administered Dose 100 mcg .ROUTE .STK-MED ONE Stop: 08/15/19 17:11 Glycopyrrolate () Confirm Administered Dose 1 mg .ROUTE .STK-MED ONE Stop: 08/15/19 16:12 Guaifenesin (Mucinex) 600 mg PO BID [facility] Last Admin: 08/15/19 21:37 Dose: Not Given Guaifenesin (Mucinex) 600 mg PO BID [facility] Last Admin: 08/08/19 12:51 Dose: Not Given Haloperidol Lactate (Haldol) 5 mg IVPUSH BEDTIME [facility] Last Admin: 08/15/19 21:51 Dose: 5 mg Haloperidol Lactate (Haldol) 5 mg IV ONETIME PRN PRN Reason: Other Stop: 08/16/19 08:00 Haloperidol Lactate (Haldol) 5 mg IVPUSH Q8H [facility] Last Admin: 08/16/19 09:59 Dose: Not Given Haloperidol Lactate (Haldol) 2 mg IVPUSH ONETIME ONE Stop: 08/16/19 09:01 Last Admin: 08/16/19 09:57 Dose: 2 mg Hydromorphone HCl (Dilaudid) Confirm Administered Dose 0.5 mg .ROUTE .STK-MED ONE Stop: 08/15/19 15:22 Hydromorphone HCl (Dilaudid) 0.5 mg IVPUSH Q15M PRN PRN Reason: Pain (severe 7-10) Stop: 08/15/19 18:00 Hydromorphone HCl (Dilaudid) Confirm Administered Dose 0.5 mg .ROUTE .STK-MED ONE Stop: 08/15/19 16:18 Hydromorphone HCl (Dilaudid) Confirm Administered Dose 0.5 mg .ROUTE .STK-MED ONE Stop: 08/15/19 18:43 Hydromorphone HCl (Dilaudid) 0.5 mg IVPUSH ONETIME ONE Stop: 08/15/19 20:51 Last Admin: 08/15/19 20:59 Dose: 0.5 mg Hydromorphone HCl (Dilaudid) Confirm Administered Dose 0.5 mg .ROUTE .STK-MED ONE Stop: 08/15/19 21:00 Last Admin: 08/15/19 21:34 Dose: Not Given Hydromorphone HCl (Dilaudid) 0.5 mg IVPUSH Q3H PRN PRN Reason: Abdominal Pain Sodium Chloride (Normal Saline) 1,000 mls @ 150 mls/hr IV ASDIRECTED [facility] Last Admin: 08/08/19 06:02 Dose: 150 mls/hr Ceftriaxone Sodium 2 gm/ (Sodium Chloride) 100 mls @ 200 mls/hr IV ONETIME ONE Stop: 08/07/19 20:00 Last Admin: 08/07/19 19:47 Dose: Not Given Magnesium Sulfate 2 gm/ Premix 50 mls @ 25 mls/hr IV ONETIME ONE Stop: 08/07/19 21:42 Last Admin: 08/07/19 20:24 Dose: 25 mls/hr Ceftriaxone Sodium 2 gm/ (Sodium Chloride) 100 mls @ 200 mls/hr IV Q24H [facility] Stop: 08/07/19 20:15 Last Admin: 08/07/19 19:49 Dose: 200 mls/hr Sodium Chloride (Normal Saline) Confirm Administered Dose 100 mls @ as directed .ROUTE .[facility] ONE Stop: 08/07/19 19:45 Last Admin: 08/07/19 19:51 Dose: Not Given Azithromycin 500 mg/ Sodium (Chloride) 250 mls @ 250 mls/hr IV Q24H [facility] Last Admin: 08/10/19 22:08 Dose: 250 mls/hr Ceftriaxone Sodium 2 gm/ (Sodium Chloride) 100 mls @ 200 mls/hr IV Q24H [facility] Last Admin: 08/10/19 21:25 Dose: 200 mls/hr Sodium Chloride (Normal Saline) 1,000 mls @ 75 mls/hr IV ASDIRECTED [facility] Sodium Phosphate 30 mmole/ (Sodium Chloride) 260 mls @ 130 mls/hr IV Q2H [facility] Stop: 08/10/19 15:59 Last Admin: 08/10/19 15:12 Dose: 130 mls/hr Magnesium Sulfate 2 gm/ Premix 50 mls @ 25 mls/hr IV ONETIME ONE Stop: 08/11/19 11:08 Last Admin: 08/11/19 09:38 Dose: 25 mls/hr Sodium Chloride (Normal Saline) 1,000 mls @ 75 mls/hr IV ASDIRECTED [facility] Last Admin: 08/12/19 09:24 Dose: 75 mls/hr Sodium Chloride (Normal Saline) Confirm Administered Dose 1,000 mls @ as directed .ROUTE .[facility] ONE Stop: 08/11/19 17:34 Last Admin: 08/11/19 17:43 Dose: Not Given Dextrose/Sodium Chloride (Dextrose 5%-Normal Saline) 1,000 mls @ 100 mls/hr IV ASDIRECTED [facility] Last Infusion: 08/13/19 12:35 Dose: 50 mls/hr Dextrose/Sodium Chloride (Dextrose 5%-Normal Saline) 1,000 mls @ 50 mls/hr IV ASDIRECTED [facility] Dextrose/Sodium Chloride (Dextrose 5%-Normal Saline) 1,000 mls @ 125 mls/hr IV ASDIRECTED [facility] Last Admin: 08/16/19 01:04 Dose: 125 mls/hr Lidocaine HCl (Xylocaine-Mpf 1%) Confirm Administered Dose 4 mls @ as directed .ROUTE .[facility] ONE Stop: 08/15/19 14:43 Lactated Ringer's (Ringers, Lactated) Confirm Administered Dose 1,000 mls @ as directed .ROUTE .[facility] ONE Stop: 08/15/19 15:18 Lactated Ringer's (Ringers, Lactated) Confirm Administered Dose 1,000 mls @ as directed .ROUTE .[facility] ONE Stop: 08/15/19 15:18 Phenylephrine HCl 1 mg/ Sodium (Chloride) 10.1 mls @ 1 mls/sec IV TITRATE [facility]; Protocol Stop: 08/15/19 18:00 Lactated Ringer's (Ringers, Lactated) Confirm Administered Dose 1,000 mls @ as directed .ROUTE .[facility] ONE Stop: 08/15/19 15:57 Lactated Ringer's (Ringers, Lactated) Confirm Administered Dose 1,000 mls @ as directed .ROUTE .[facility] ONE Stop: 08/15/19 18:09 Magnesium Sulfate 2 gm/ Premix 50 mls @ 25 mls/hr IV ONETIME ONE Stop: 08/16/19 10:10 Last Admin: 08/16/19 08:45 Dose: Not Given Magnesium Sulfate 4 gm/ Premix 50 mls @ 12.5 mls/hr IV ONETIME ONE Stop: 08/16/19 12:28 Last Admin: 08/16/19 08:46 Dose: 12.5 mls/hr Dextrose/Sodium Chloride (Dextrose 5%-Normal Saline) 1,000 mls @ 100 mls/hr IV ASDIRECTED [facility] Stop: 08/16/19 13:00 Last Infusion: 08/16/19 12:20 Dose: 20 mls/hr Dextrose/Sodium Chloride (Dextrose 5%-Normal Saline) 1,000 mls @ 20 mls/hr IV ASDIRECTED [facility] Last Admin: 08/17/19 06:33 Dose: 20 mls/hr Multivitamins/Minerals 10 ml/Chromium/Copper/Manganese/Zinc 1 ml/ Amino Ac/ Electrol/Dextrose/Calcium 1,011 mls @ 45 mls/hr IV ONETIME ONE Stop: 08/17/19 11:27 Last Admin: 08/16/19 13:15 Dose: 45 mls/hr Adjust Tpn Rate 720 mls @ 60 mls/hr .XX ONETIME ONE Stop: 08/17/19 12:59 Last Admin: 08/17/19 00:56 Dose: 60 mls/hr Multivitamins/Minerals 10 ml/Chromium/Copper/Manganese/Zinc 1 ml/ Amino Ac/ Electrol/Dextrose/Calcium 1,011 mls @ 60 mls/hr IV TITRATE [facility] Stop: 08/18/19 01:50 Last Admin: 08/17/19 08:52 Dose: 60 mls/hr Adjust Tpn Rate 720 mls @ 75 mls/hr .XX ONETIME ONE Stop: 08/17/19 22:35 Last Admin: 08/17/19 14:13 Dose: Not Given Multivitamins/Minerals 10 ml/Chromium/Copper/Manganese/Zinc 1 ml/ Amino Ac/ Electrol/Dextrose/Calcium 1,011 mls @ 75 mls/hr IV TITRATE [facility] Stop: 08/19/19 01:29 Last Admin: 08/18/19 14:35 Dose: 75 mls/hr Magnesium Sulfate/Dextrose (Magnesium Sulfate In D5w 100 Premix) 1 gm in 100 mls @ 100 mls/hr IV ONETIME ONE Stop: 08/19/19 09:59 Last Admin: 08/19/19 09:42 Dose: 100 mls/hr Multivitamins/Minerals 10 ml/Chromium/Copper/Manganese/Zinc 1 ml/ Amino Ac/ Electrol/Dextrose/Calcium 1,011 mls @ 75 mls/hr IV TITRATE [facility] Stop: 08/20/19 07:29 Last Admin: 08/19/19 17:54 Dose: 75 mls/hr Multivitamins/Minerals 10 ml/Chromium/Copper/Manganese/Zinc 1 ml/ Amino Ac/ Electrol/Dextrose/Calcium 1,011 mls @ 75 mls/hr IV ONETIME ONE Stop: 08/20/19 21:43 Last Admin: 08/20/19 08:26 Dose: 75 mls/hr Magnesium Sulfate 2 gm/ Premix 50 mls @ 25 mls/hr IV ONETIME ONE Stop: 08/20/19 12:59 Last Admin: 08/20/19 11:27 Dose: 25 mls/hr Influenza Virus Vaccine (Pharmacy To Dose - Influenza Vaccine) 1 each IM ONETIME ONE Stop: 08/07/19 22:46 Influenza Virus Vaccine (Fluzone High-Dose Syringe) 180 mcg IM .ONCE ONE Stop: 08/08/19 10:01 Iopamidol (Isovue-300 (61%)) 100 ml IVPUSH ONETIME ONE Stop: 08/11/19 16:42 Last Admin: 08/11/19 16:44 Dose: 100 ml Ipratropium [place] (Atrovent) 0.5 mg NEB Q4HRRT [facility] Last Admin: 08/11/19 13:29 Dose: 0.5 mg Ketamine HCl (Ketalar) Confirm Administered Dose 500 mg .ROUTE .STK-MED ONE Stop: 08/15/19 15:35 Ketorolac Tromethamine (Toradol) Confirm Administered Dose 30 mg .ROUTE .STK- MED ONE Stop: 08/15/19 18:40 Ketorolac Tromethamine (Toradol) 15 mg IVPUSH Q6H PRN PRN Reason: Pain Stop: 08/18/19 00:31 Last Admin: 08/17/19 20:26 Dose: 15 mg Lidocaine HCl (Xylocaine 1%) Confirm Administered Dose 50 ml .ROUTE .STK-MED ONE Stop: 08/15/19 07:11 Last Admin: 08/15/19 15:09 Dose: 4.5 ml Lidocaine HCl (Xylocaine 1%) Confirm Administered Dose 50 ml .ROUTE .STK-MED ONE Stop: 08/15/19 11:28 Lidocaine HCl (Xylocaine 1%) 20 ml INJECT ONETIME ONE Stop: 08/18/19 17:01 Last Admin: 08/18/19 17:49 Dose: 10 ml Magnesium Hydroxide (Milk Of Magnesia) 30 ml PO ONETIME ONE Stop: 08/14/19 07:43 Last Admin: 08/14/19 08:58 Dose: 30 ml Methadone HCl (Methadone) 5 mg PO BID [facility] Last Admin: 03/23/20 21:37 Dose: Not Given Midazolam HCl (Versed 1 Mg/Ml) Confirm Administered Dose 2 mg .ROUTE .STK-MED ONE Stop: 08/15/19 12:15 Miscellaneous Medication (Phenylephrine 1 Mg/10 Ml-Ns) Confirm Administered Dose 1 mg IV .STK-MED ONE Stop: 08/15/19 15:05 Miscellaneous Medication (Phenylephrine 1 Mg/10 Ml-Ns) Confirm Administered Dose 1 mg IV .STK-MED ONE Stop: 08/15/19 16:18 Miscellaneous Medication (Phenylephrine 1 Mg/10 Ml-Ns) Confirm Administered Dose 1 mg IV .STK-MED ONE Stop: 08/15/19 17:47 Miscellaneous Medication (Phenylephrine 1 Mg/10 Ml-Ns) Confirm Administered Dose 1 mg IV .STK-MED ONE Stop: 08/15/19 18:34 Neostigmine Methylsulfate (Neostigmine Methylsulfate) Confirm Administered Dose 5 mg .ROUTE .STK-MED ONE Stop: 08/15/19 16:12 Nicotine (Habitrol) 21 mg TRDERM DAILY [facility] Last Admin: 08/20/19 08:26 Dose: 21 mg Ondansetron HCl (Zofran) 4 mg IVPUSH ONETIME ONE Stop: 08/07/19 16:51 Last Admin: 08/07/19 17:20 Dose: 4 mg Ondansetron HCl (Zofran) 4 mg IVPUSH ONETIME ONE Stop: 08/07/19 19:12 Last Admin: 08/07/19 19:51 Dose: 4 mg Ondansetron HCl (Zofran Odt) 4 mg PO Q6H PRN PRN Reason: nausea, able to take PO Last Admin: 08/13/19 09:44 Dose: 4 mg Ondansetron HCl (Zofran) 4 mg IV Q6H [facility] Last Admin: 08/08/19 06:03 Dose: Not Given Ondansetron HCl (Zofran) 4 mg IV Q6H [facility] Last Admin: 08/08/19 12:40 Dose: 4 mg Ondansetron HCl (Zofran) 4 mg IVPUSH Q8H PRN PRN Reason: Nausea/Vomiting Last Admin: 08/13/19 15:04 Dose: 4 mg Ondansetron HCl (Zofran) 4 mg IVPUSH ONETIME PRN PRN Reason: Nausea/Vomiting Stop: 08/15/19 18:00 Ondansetron HCl (Zofran) Confirm Administered Dose 4 mg .ROUTE .STK-MED ONE Stop: 08/15/19 16:13 Oseltamivir Phosphate (Tamiflu) 75 mg PO BID [facility] Stop: 08/12/19 09:01 Last Admin: 08/12/19 09:24 Dose: 75 mg Propofol (Diprivan 20 Ml) Confirm Administered Dose 200 mg .ROUTE .STK-MED ONE Stop: 08/15/19 12:15 Risperidone (Risperidal) 2 mg PO BEDTIME [facility] Last Admin: 08/15/19 21:36 Dose: Not Given Risperidone (Risperidal) 1 mg PO DAILY [facility] Last Admin: 08/15/19 10:49 Dose: Not Given Rocuronium [place] (Zemuron) Confirm Administered Dose 50 mg .ROUTE .STK-MED ONE Stop: 08/15/19 12:14 Rocuronium [place] (Zemuron) Confirm Administered Dose 50 mg .ROUTE .STK-MED ONE Stop: 08/15/19 16:10 Sodium Chloride (Saline Flush) 10 ml FLUSH ONETIME ONE Stop: 08/11/19 16:42 Last Admin: 08/11/19 16:46 Dose: 10 ml Trazodone HCl (Trazodone) 50 mg PO BEDTIME [facility] Last Admin: 08/15/19 21:50 Dose: Not Given - Exam Quality Assessment: Central Line/PICC (right neck ), DVT Prophylaxis General: Alert, Oriented, Cooperative, No Acute Distress HEENT: Pupils Equal, Pupils Reactive, Mucous Membr. Moist/[place] Neck: Supple, Trachea Midline Lungs: Clear to Auscultation, Normal Respiratory Effort, Decreased Breath Sounds Cardiovascular: Regular Rate, Regular Rhythm GI/Abdominal Exam: Normal Bowel Sounds, No Distention, Tender (Male) Exam: Deferred Back Exam: Normal Inspection, Full Range of Motion Extremities: Normal Inspection, Normal Range of Motion, Non-Tender, No Pedal Edema, Normal Capillary Refill Skin: Warm, Dry, Intact Neurological: No New Focal Deficit Psy/Mental Status: Alert Sepsis Event Note - Evaluation Sepsis Screening Result: No Definite Risk - Focused Exam Vital Signs: Vital Signs Temp Pulse Resp BP Pulse Ox Pulse Ox 08/20/19 21:15 97.9 F 88 18 141/67 H 96 03/28/20 21:00 94 L Date Exam was Performed: 08/21/19 Time Exam was Performed: 12:33 - Problem List & Annotations (1) Acute hypoxemic respiratory failure SNOMED Code(s): 978559234 Code(s): J96.01 - ACUTE RESPIRATORY FAILURE WITH HYPOXIA Status: Acute Priority: High Current Visit: Yes (2) Chronic pain SNOMED Code(s): 87156746 Code(s): G89.29 - OTHER CHRONIC PAIN Status: Chronic Priority: Medium Current Visit: Yes Qualifiers: Chronic pain type: other chronic pain Qualified Code(s): G89.29 - Other chronic pain (3) Hypoalbuminemia SNOMED Code(s): 204996528 Code(s): E88.09 - OTH DISORDERS OF PLASMA-PROTEIN METABOLISM, NEC Status: Acute Priority: High Current Visit: Yes (4) Hypomagnesemia SNOMED Code(s): 674387748 Code(s): E83.42 - HYPOMAGNESEMIA Status: Resolved Priority: High Current Visit: Yes (5) Hyponatremia SNOMED Code(s): 14186403 Code(s): E87.1 - HYPO-OSMOLALITY AND HYPONATREMIA Status: Resolved Priority: High Current Visit: Yes (6) Hypophosphatemia SNOMED Code(s): 5280989 Code(s): E83.39 - OTHER DISORDERS OF PHOSPHORUS METABOLISM Status: Resolved Priority: High Current Visit: Yes (7) Intractable nausea and vomiting SNOMED Code(s): 960862576 Code(s): R11.2 - NAUSEA WITH VOMITING, UNSPECIFIED Status: Resolved Priority: High Current Visit: Yes (8) Leukocytosis SNOMED Code(s): 158715079, 216774441 Code(s): D72.829 - ELEVATED WHITE BLOOD CELL COUNT, UNSPECIFIED Status: Acute Priority: High Current Visit: Yes Qualifiers: Leukocytosis type: unspecified Qualified Code(s): D72.829 - Elevated white blood cell count, unspecified (9) Lung nodule SNOMED Code(s): 020782637 Code(s): R91.1 - SOLITARY PULMONARY NODULE Status: Acute Priority: High Current Visit: Yes (10) Macrocytosis without anemia SNOMED Code(s): 918289551 Code(s): D75.89 - OTHER SPECIFIED DISEASES OF BLOOD AND BLOOD-FORMING ORGANS Status: Acute Priority: High Current Visit: Yes (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 Code(s): 51716331, 594268228 Code(s): F11.20 - OPIOID DEPENDENCE, UNCOMPLICATED Status: Chronic Priority: Medium Current Visit: Yes (12) Pneumonia SNOMED Code(s): 575499683 Code(s): J18.9 - PNEUMONIA, UNSPECIFIED ORGANISM Status: Acute Priority: High Current Visit: Yes Qualifiers: Pneumonia type: due to unspecified organism Laterality: unspecified laterality Lung location: unspecified part of lung Qualified Code(s): J18.9 - Pneumonia, unspecified organism (13) Productive cough SNOMED Code(s): 05707131, 634337733, 236764503 Code(s): R05 - COUGH Status: Acute Priority: High Current Visit: Yes (14) Schizophrenia SNOMED Code(s): 12571001 Code(s): F20.9 - SCHIZOPHRENIA, UNSPECIFIED Status: Chronic Priority: Medium Current Visit: Yes Qualifiers: Schizophrenia type: unspecified Qualified Code(s): F20.9 - Schizophrenia, unspecified (15) Smoker SNOMED Code(s): 14384696 Code(s): F17.200 - NICOTINE DEPENDENCE, UNSPECIFIED, UNCOMPLICATED Status: Chronic Priority: Medium Current Visit: Yes (16) Tachycardia SNOMED Code(s): 0341613 Code(s): R00.0 - TACHYCARDIA, UNSPECIFIED Status: Resolved Priority: High Current Visit: Yes (17) Small bowel obstruction SNOMED Code(s): 682431273 Code(s): K56.609 - UNSP INTESTNL OBST, UNSP TO PARTIAL VERSUS COMPLETE OBST Status: Acute Priority: High Current Visit: Yes (18) Laparoscopic surgical procedure converted to open procedure SNOMED Code(s): 467084549 Code(s): Z53.31 - LAPAROSCOPIC SURGICAL PROCEDURE CONVERTED TO OPEN PROCEDURE Status: Acute Priority: High Current Visit: Yes (19) S/P laparotomy SNOMED Code(s): 868296264, 855826680, 128789776 Code(s): Z98.890 - OTHER SPECIFIED POSTPROCEDURAL STATES Status: Acute Priority: High Current Visit: Yes - Problem List Review Problem List Initiated/Reviewed/Updated: Yes - Plan Plan:: Postop day 6 Exploratory laparotomy, extensive lysis of adhesions, liver cyst excision, CVC placement. Patient is doing well. Postop ileus. Active bowel sounds Reports belching and flatus Plan - Continue TPN and lipids - Dr. Egan managing pain and TPN co-managed with dietary and pharmacy - IV fluids as ordered SBO -post exploratory open laparotomy with Dr. Egan Initially presented with intractable nausea and vomiting to ED Has been stable since admission, vomited x1 on 08/11/19 after drinking coffee Tender knob in RUQ noted on physical exam - not gallbladder, calcified mass on CT. Patient reports chronic since [address] scan Multiple adhesions and right upper quadrant mass excised. PLAN - NG tube pulled by patient - Dr. Egan ok'd to keep out - Advanced diet to clear liquids per Dr. 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 and on oral Risperdal. Will transition to Haldol and Ativan. -Transition all meds to IV as able. -Monitor NPO status and resume PO meds once able - see how diet goes today and resume tomorrow Chronic pain Methadone maintenance therapy patient Denies any current pain PLAN -Pain management per Dr. Egan Muscle wasting Hypoalbuminemia Macrocytosis without anemia Significant muscle wasting Vitamin B12 level and folic acid level WNL Pre-albumin low PLAN -Finance Professor consult -Monitor intake once off NPO status Follow electrolytes closely PROPHYLAXIS DVT- compression stockings, Heparin CODE STATUS: FULL CODE LOS >96 HRS due to exploratory laparotomy, resulting ileus, awaiting advancement of diet IV fluids/nutrition. Discussed case with Dr. Egan, who performed surgery on Mr. Mathews. Because this is a surgical case at this point, he will graciously take over as primary provider today. Hospitalist team will continue to follow closely as consultants and assist in any [phone] as [id number]
[2019-08-21] MEDS: LORazepam 2 MG/ML SDV IVPUSH PRN ×3 (09:22→23:33)
[2019-08-21] MEDS ORDERED: CHROMIUM IV ONE ×3 (11:30)
[2019-08-21] MEDS ORDERED: MANG IV ONE ×3 (11:30)
[2019-08-21] MEDS ORDERED: [UNRECOGNIZED DRUG - OTHER] IV ONE ×3 (11:30)
[2019-08-21] MEDS ORDERED: VITAMIN K IV ONE ×3 (11:30)
[2019-08-21] MEDS ORDERED: COPPER IV ONE ×3 (11:30)
[2019-08-21] MEDS ORDERED: MVI IV ONE ×3 (11:30)
[2019-08-21] MEDS ORDERED: ZINC IV ONE ×3 (11:30)
[2019-08-21] MEDS: Sodium Chloride 0.9% 1,000 ML IV SCH (17:31)
[2019-08-21] MEDS: Famotidine 20 MG/2 ML SDV IVPUSH SCH (20:09)
[2019-08-21] MEDS: BENZTROPINE 2MG/2ML VIAL IVPUSH SCH (20:15)
[2019-08-22] MEDS: AA 5%/Calcium/D20W/Lytes 1,000 ML IV SCH ×2 (01:31)
[2019-08-22] MEDS: Heparin Sodium 5,000 Units/ML Vial SUBCUT SCH ×3 (01:36→16:33)
[2019-08-22] MEDS: HYDROmorphone 1 MG/ML Syringe IVPUSH PRN ×5 (04:28→22:05)
[2019-08-22] MEDS: Haloperidol Lactate 5 MG/ML SDV IVPUSH SCH (06:09)
[2019-08-22] MEDS ORDERED: Magnesium Sulfate/Water 2 GM in Premix Bag 1 BAG IV ONE (07:19)
--- NOTE | 2019-08-22 07:30 | PCM.SURGPN ---
- General Info Date of Service: 08/22/19 POD#: 7 Functional Status: Reports: Pain Controlled, Tolerating Diet (clears), Ambulating, Urinating - Review of Systems General: Reports: No Symptoms HEENT: Reports: No Symptoms Pulmonary: Reports: No Symptoms Cardiovascular: Reports: No Symptoms Gastrointestinal: Reports: No Symptoms Genitourinary: Reports: No Symptoms Musculoskeletal: Reports: No Symptoms Skin: Reports: No Symptoms Neurological: Reports: No Symptoms Psychiatric: Reports: No Symptoms - Patient Data Vitals - Most Recent: Last Vital Signs Temp 97.9 F 08/22/19 04:19 Pulse 82 08/22/19 04:19 Resp 18 08/22/19 04:19 BP 99/50 L 08/22/19 04:19 Pulse Ox 94 L 08/22/19 04:19 Orthostatic Blood Pressure [ 109/60 Standing] Orthostatic Blood Pressure [ 120/69 Sitting] Orthostatic Blood Pressure [ 120/79 Supine] Weight - Most Recent: 60.056 kg I&O - Last 24 Hours: Intake & Output 08/21/19 08/22/19 08/22/19 22:59 06:59 14:59 Intake Total 1452 120 Output Total 940 1160 Balance 512 -1040 Lab Results Last 24 Hrs: Laboratory Results - last 24 hr 08/21/19 08/21/19 08/21/19 Range/Units 06:48 12:02 18:10 Sodium (136-145) mEq/L Potassium (3.5-5.1) mEq/L Chloride (98-107) mEq/L Carbon Dioxide (21-32) mEq/L Anion Gap (5-15) BUN (7-18) mg/dL Creatinine (0.7-1.3) mg/dL Est Cr Clr Drug Dosing mL/min Estimated GFR (MDRD) (>60) mL/min BUN/Creatinine Ratio (14-18) Glucose (80-115) mg/dL POC Glucose 127 H 97 (80-115) mg/dL Calcium (8.5-10.1) mg/dL Phosphorus (2.6-4.7) mg/dL Magnesium (1.8-2.4) mg/dl Urine Color Yellow (Yellow) Urine Appearance Clear (Clear) Urine pH 7.0 (5.0-8.0) Ur Specific [place] 1.020 (1.005-1.030) Urine Protein Negative (Negative) Urine Glucose (UA) Negative (Negative) Urine Ketones Negative (Negative) Urine Occult Blood Trace-intact H (Negative) Urine Nitrite Negative (Negative) Urine Bilirubin Negative (Negative) Urine Urobilinogen 0.2 (0.2-1.0) Ur Leukocyte Esterase Negative (Negative) Urine RBC 0-5 (0-5) /hpf Urine WBC 0-5 (0-5) /hpf Ur Squamous Epith Cells 0-5 (0-5) /hpf Urine Bacteria Not seen (FEW) /hpf Urine Mucus Not seen (FEW) /hpf 08/21/19 08/21/19 08/22/19 Range/Units 18:26 23:50 04:15 Sodium 136 (136-145) mEq/L Potassium 4.2 (3.5-5.1) mEq/L Chloride 104 (98-107) mEq/L Carbon Dioxide 23 (21-32) mEq/L Anion Gap 13.2 (5-15) BUN 14 (7-18) mg/dL Creatinine 0.6 L (0.7-1.3) mg/dL Est Cr Clr Drug Dosing 97.31 mL/min Estimated GFR (MDRD) > 60 (>60) mL/min BUN/Creatinine Ratio 23.3 H (14-18) Glucose 136 H (80-115) mg/dL POC Glucose 124 H 120 H (80-115) mg/dL Calcium 7.5 L (8.5-10.1) mg/dL Phosphorus 3.2 (2.6-4.7) mg/dL Magnesium 1.6 L (1.8-2.4) mg/dl Urine Color (Yellow) Urine Appearance (Clear) Urine pH (5.0-8.0) Ur Specific [place] (1.005-1.030) Urine Protein (Negative) Urine Glucose (UA) (Negative) Urine Ketones (Negative) Urine Occult Blood (Negative) Urine Nitrite (Negative) Urine Bilirubin (Negative) Urine Urobilinogen (0.2-1.0) Ur Leukocyte Esterase (Negative) Urine RBC (0-5) /hpf Urine WBC (0-5) /hpf Ur Squamous Epith Cells (0-5) /hpf Urine Bacteria (FEW) /hpf Urine Mucus (FEW) /hpf 08/22/19 Range/Units 06:38 Sodium (136-145) mEq/L Potassium (3.5-5.1) mEq/L Chloride (98-107) mEq/L Carbon Dioxide (21-32) mEq/L Anion Gap (5-15) BUN (7-18) mg/dL Creatinine (0.7-1.3) mg/dL Est Cr Clr Drug Dosing mL/min Estimated GFR (MDRD) (>60) mL/min BUN/Creatinine Ratio (14-18) Glucose (80-115) mg/dL POC Glucose 120 H (80-115) mg/dL Calcium (8.5-10.1) mg/dL Phosphorus (2.6-4.7) mg/dL Magnesium (1.8-2.4) mg/dl Urine Color (Yellow) Urine Appearance (Clear) Urine pH (5.0-8.0) Ur Specific [place] (1.005-1.030) Urine Protein (Negative) Urine Glucose (UA) (Negative) Urine Ketones (Negative) Urine Occult Blood (Negative) Urine Nitrite (Negative) Urine Bilirubin (Negative) Urine Urobilinogen (0.2-1.0) Ur Leukocyte Esterase (Negative) Urine RBC (0-5) /hpf Urine WBC (0-5) /hpf Ur Squamous Epith Cells (0-5) /hpf Urine Bacteria (FEW) /hpf Urine Mucus (FEW) /hpf Med Orders - Current: Current Medications Acetaminophen (Tylenol) 650 mg PO Q4H PRN PRN Reason: Pain (Mild 1-3)/fever Last Admin: 08/13/19 09:43 Dose: 650 mg Albuterol/Ipratropium (Duoneb 3.0-0.5 Mg/3 Ml) 3 ml NEB QIDRT PRN PRN Reason: SOB/wheezing Famotidine (Pepcid) 20 mg IVPUSH BEDTIME [facility] Last Admin: 08/21/19 20:09 Dose: 20 mg Haloperidol Lactate (Haldol) 5 mg IVPUSH BEDTIME [facility] Last Admin: 08/21/19 20:11 Dose: 5 mg Haloperidol Lactate (Haldol) 2 mg IVPUSH 0600,1400 [facility] Last Admin: 08/22/19 06:09 Dose: 2 mg Heparin Sodium (Porcine) (Heparin Sodium) 5,000 units SUBCUT Q8H [facility] Last Admin: 08/22/19 01:36 Dose: 5,000 units Hydromorphone HCl (Dilaudid) 1 mg IVPUSH Q3H PRN PRN Reason: Pain Last Admin: 08/22/19 04:28 Dose: 1 mg Fat Emulsion Intravenous (Intralipid 20%) 500 mls @ 62.5 mls/hr IV MoWeFr [facility] Last Admin: 08/19/19 12:17 Dose: 62.5 mls/hr Sodium Chloride (Normal Saline) 1,000 mls @ 50 mls/hr IV ASDIRECTED [facility] Last Admin: 08/21/19 17:31 Dose: 50 mls/hr Amino Ac/Electrol/Dextrose/Calcium (Clinimix E 10/11) 1,000 mls @ 75 mls/hr IV TITRATE [facility] Last Admin: 08/22/19 01:31 Dose: 75 mls/hr Dextrose/Water (Dextrose 10% In Water) 500 mls @ 75 mls/hr IV ASDIRECTED [facility] Last Admin: 08/20/19 07:37 Dose: 75 mls/hr Magnesium Sulfate 2 gm/ Premix 50 mls @ 25 mls/hr IV ONETIME ONE Stop: 08/22/19 09:18 Lorazepam (Ativan) 0.5 mg IVPUSH Q2H PRN PRN Reason: Anxiety Last Admin: 08/21/19 23:33 Dose: 0.5 mg Miscellaneous Information (Remove Patch) 1 ea TRDERM DAILY [facility] Last Admin: 08/21/19 08:50 Dose: Not Given Nicotine (Habitrol) 14 mg TRDERM DAILY [facility] Last Admin: 08/21/19 08:20 Dose: 14 mg Benztropine 2mg/2ml (Vial) 0 each IVPUSH BEDTIME [facility] Last Admin: 08/21/19 20:15 Dose: 1 each Ondansetron HCl (Zofran) 4 mg IVPUSH Q4H PRN PRN Reason: Nausea/Vomiting Last Admin: 08/18/19 12:30 Dose: 4 mg Pharmacy Consult (Consult To Pharmacy) 0 each .XX DAILY PRN PRN Reason: TPN MONITORING Sodium Chloride (Saline Flush) 10 ml FLUSH ASDIRECTED PRN PRN Reason: Keep Vein Open Last Admin: 08/11/19 16:44 Dose: 10 ml Discontinued Medications Albuterol (Proventil Neb Soln) 2.5 mg NEB ONETIME PRN PRN Reason: bronchodilation Stop: 08/15/19 18:00 Albuterol/Ipratropium (Duoneb 3.0-0.5 Mg/3 Ml) 3 ml NEB QIDRT [facility] Last Admin: 08/17/19 09:10 Dose: 3 ml Azithromycin (Zithromax) 250 mg PO BEDTIME [facility] Last Admin: 08/11/19 21:06 Dose: 250 mg Benzonatate (Tessalon Perles) 100 mg PO BID [facility] Last Admin: 08/15/19 21:36 Dose: Not Given Benztropine Mesylate (Cogentin) 1 mg PO BEDTIME [facility] Last Admin: 08/15/19 21:37 Dose: Not Given Benztropine Mesylate (Cogentin) 1 mg IVPUSH BEDTIME [facility] Cefazolin Sodium (Ancef) Confirm Administered Dose 2 gm .ROUTE .STK-MED ONE Stop: 08/15/19 15:23 Cefazolin Sodium (Ancef) Confirm Administered Dose 2 gm .ROUTE .STK-MED ONE Stop: 08/15/19 18:13 Cefdinir (Omnicef) 300 mg PO BID [facility] Last Admin: 08/14/19 08:58 Dose: 300 mg Ceftriaxone Sodium (Rocephin) Confirm Administered Dose 2 gm IV .STK-MED ONE Stop: 08/07/19 19:45 Last Admin: 08/07/19 19:51 Dose: Not Given Diatrizoate Meglum/Diatrizoate Sod (Gastrografin 37%) 90 ml PO ONETIME ONE Stop: 08/11/19 16:42 Last Admin: 08/11/19 16:43 Dose: 90 ml Ephedrine Sulfate (Ephedrine Sulfate) 5 mg IVPUSH ASDIRECTED PRN PRN Reason: Hypotension Stop: 08/15/19 18:00 Famotidine (Pepcid) 20 mg IVPUSH ONETIME ONE Stop: 08/20/19 10:01 Last Admin: 08/20/19 09:59 Dose: 20 mg Fentanyl (Sublimaze) Confirm Administered Dose 250 mcg .ROUTE .STK-MED ONE Stop: 08/15/19 12:16 Fentanyl (Sublimaze) 50 mcg IVPUSH Q5M PRN PRN Reason: Pain Stop: 08/15/19 18:00 Fentanyl (Sublimaze) Confirm Administered Dose 100 mcg .ROUTE .STK-MED ONE Stop: 08/15/19 17:11 Glycopyrrolate () Confirm Administered Dose 1 mg .ROUTE .STK-MED ONE Stop: 08/15/19 16:12 Guaifenesin (Mucinex) 600 mg PO BID [facility] Last Admin: 08/15/19 21:37 Dose: Not Given Guaifenesin (Mucinex) 600 mg PO BID [facility] Last Admin: 08/08/19 12:51 Dose: Not Given Haloperidol Lactate (Haldol) 5 mg IVPUSH BEDTIME [facility] Last Admin: 08/15/19 21:51 Dose: 5 mg Haloperidol Lactate (Haldol) 5 mg IV ONETIME PRN PRN Reason: Other Stop: 08/16/19 08:00 Haloperidol Lactate (Haldol) 5 mg IVPUSH Q8H [facility] Last Admin: 08/16/19 09:59 Dose: Not Given Haloperidol Lactate (Haldol) 2 mg IVPUSH ONETIME ONE Stop: 08/16/19 09:01 Last Admin: 08/16/19 09:57 Dose: 2 mg Hydromorphone HCl (Dilaudid) Confirm Administered Dose 0.5 mg .ROUTE .STK-MED ONE Stop: 08/15/19 15:22 Hydromorphone HCl (Dilaudid) 0.5 mg IVPUSH Q15M PRN PRN Reason: Pain (severe 7-10) Stop: 08/15/19 18:00 Hydromorphone HCl (Dilaudid) Confirm Administered Dose 0.5 mg .ROUTE .STK-MED ONE Stop: 08/15/19 16:18 Hydromorphone HCl (Dilaudid) Confirm Administered Dose 0.5 mg .ROUTE .STK-MED ONE Stop: 08/15/19 18:43 Hydromorphone HCl (Dilaudid) 0.5 mg IVPUSH ONETIME ONE Stop: 08/15/19 20:51 Last Admin: 08/15/19 20:59 Dose: 0.5 mg Hydromorphone HCl (Dilaudid) Confirm Administered Dose 0.5 mg .ROUTE .STK-MED ONE Stop: 08/15/19 21:00 Last Admin: 08/15/19 21:34 Dose: Not Given Hydromorphone HCl (Dilaudid) 0.5 mg IVPUSH Q3H PRN PRN Reason: Abdominal Pain Sodium Chloride (Normal Saline) 1,000 mls @ 150 mls/hr IV ASDIRECTED [facility] Last Admin: 08/08/19 06:02 Dose: 150 mls/hr Ceftriaxone Sodium 2 gm/ (Sodium Chloride) 100 mls @ 200 mls/hr IV ONETIME ONE Stop: 08/07/19 20:00 Last Admin: 08/07/19 19:47 Dose: Not Given Magnesium Sulfate 2 gm/ Premix 50 mls @ 25 mls/hr IV ONETIME ONE Stop: 08/07/19 21:42 Last Admin: 08/07/19 20:24 Dose: 25 mls/hr Ceftriaxone Sodium 2 gm/ (Sodium Chloride) 100 mls @ 200 mls/hr IV Q24H [facility] Stop: 08/07/19 20:15 Last Admin: 08/07/19 19:49 Dose: 200 mls/hr Sodium Chloride (Normal Saline) Confirm Administered Dose 100 mls @ as directed .ROUTE .STK-MED ONE Stop: 08/07/19 19:45 Last Admin: 08/07/19 19:51 Dose: Not Given Azithromycin 500 mg/ Sodium (Chloride) 250 mls @ 250 mls/hr IV Q24H [facility] Last Admin: 08/10/19 22:08 Dose: 250 mls/hr Ceftriaxone Sodium 2 gm/ (Sodium Chloride) 100 mls @ 200 mls/hr IV Q24H [facility] Last Admin: 08/10/19 21:25 Dose: 200 mls/hr Sodium Chloride (Normal Saline) 1,000 mls @ [facility] S[facility] Phosphate 30 mmole/ (Sodium Chloride) 260 mls @ 130 mls/hr IV Q2H [facility] Stop: 08/10/19 15:59 Last Admin: 08/10/19 15:12 Dose: 130 mls/hr Magnesium Sulfate 2 gm/ Premix 50 mls @ 25 mls/hr IV ONETIME ONE Stop: 08/11/19 11:08 Last Admin: 08/11/19 09:38 Dose: 25 mls/hr Sodium Chloride (Normal Saline) 1,000 mls @ 75 mls/hr IV ASDIRECTED [facility] Last Admin: 08/12/19 09:24 Dose: 75 mls/hr Sodium Chloride (Normal Saline) Confirm Administered Dose 1,000 mls @ as directed .ROUTE .ST-MED ONE Stop: 08/11/19 17:34 Last Admin: 08/11/19 17:43 Dose: Not Given Dextrose/Sodium Chloride (Dextrose 5%-Normal Saline) 1,000 mls @ 100 mls/hr IV ASDIRECTED [facility] Last Infusion: 08/13/19 12:35 Dose: 50 mls/hr Dextrose/Sodium Chloride (Dextrose 5%-Normal Saline) 1,000 mls @ 50 mls/hr IV ASDIRECTED [facility] Dextrose/Sodium Chloride (Dextrose 5%-Normal Saline) 1,000 mls @ 125 mls/hr IV ASDIRECTED [facility] Last Admin: 08/16/19 01:04 Dose: 125 mls/hr Lidocaine HCl (Xylocaine-Mpf 1%) Confirm Administered Dose 4 mls @ as directed .ROUTE .[facility]-MED ONE Stop: 08/15/19 14:43 Lactated Ringer's (Ringers, Lactated) Confirm Administered Dose 1,000 mls @ as directed .ROUTE .[facility]-MED ONE Stop: 08/15/19 15:18 Lactated Ringer's (Ringers, Lactated) Confirm Administered Dose 1,000 mls @ as directed .ROUTE .[facility] ONE Stop: 08/15/19 15:18 Phenylephrine HCl 1 mg/ Sodium (Chloride) 10.1 mls @ 1 mls/sec IV TITRATE [facility]; Protocol Stop: 08/15/19 18:00 Lactated Ringer's (Ringers, Lactated) Confirm Administered Dose 1,000 mls @ as directed .ROUTE .[facility]-MED ONE Stop: 08/15/19 15:57 Lactated Ringer's (Ringers, Lactated) Confirm Administered Dose 1,000 mls @ as directed .ROUTE .[facility]-MED ONE Stop: 08/15/19 18:09 Magnesium Sulfate 2 gm/ Premix 50 mls @ 25 mls/hr IV ONETIME ONE Stop: 08/16/19 10:10 Last Admin: 08/16/19 08:45 Dose: Not Given Magnesium Sulfate 4 gm/ Premix 50 mls @ 12.5 mls/hr IV ONETIME ONE Stop: 08/16/19 12:28 Last Admin: 08/16/19 08:46 Dose: 12.5 mls/hr Dextrose/Sodium Chloride (Dextrose 5%-Normal Saline) 1,000 mls @ 100 mls/hr IV ASDIRECTED [facility] Stop: 08/16/19 13:00 Last Infusion: 08/16/19 12:20 Dose: 20 mls/hr Dextrose/Sodium Chloride (Dextrose 5%-Normal Saline) 1,000 mls @ 20 mls/hr IV ASDIRECTED [facility] Last Admin: 08/17/19 06:33 Dose: 20 mls/hr Multivitamins/Minerals 10 ml/Chromium/Copper/Manganese/Zinc 1 ml/ Amino Ac/ Electrol/Dextrose/Calcium 1,011 mls @ 45 mls/hr IV ONETIME ONE Stop: 08/17/19 11:27 Last Admin: 08/16/19 13:15 Dose: 45 mls/hr Adjust Tpn Rate 720 mls @ 60 mls/hr .XX ONETIME ONE Stop: 08/17/19 12:59 Last Admin: 08/17/19 00:56 Dose: 60 mls/hr Multivitamins/Minerals 10 ml/Chromium/Copper/Manganese/Zinc 1 ml/ Amino Ac/ Electrol/Dextrose/Calcium 1,011 mls @ 60 mls/hr IV TITRATE [facility] Stop: 08/18/19 01:50 Last Admin: 08/17/19 08:52 Dose: 60 mls/hr Adjust Tpn Rate 720 mls @ 75 mls/hr .XX ONETIME ONE Stop: 08/17/19 22:35 Last Admin: 08/17/19 14:13 Dose: Not Given Multivitamins/Minerals 10 ml/Chromium/Copper/Manganese/Zinc 1 ml/ Amino Ac/ Electrol/Dextrose/Calcium 1,011 mls @ 75 mls/hr IV TITRATE [facility] Stop: 08/19/19 01:29 Last Admin: 08/18/19 14:35 Dose: 75 mls/hr Magnesium Sulfate/Dextrose (Magnesium Sulfate In D5w 100 Premix) 1 gm in 100 mls @ 100 mls/hr IV ONETIME ONE Stop: 08/19/19 09:59 Last Admin: 08/19/19 09:42 Dose: 100 mls/hr Multivitamins/Minerals 10 ml/Chromium/Copper/Manganese/Zinc 1 ml/ Amino Ac/ Electrol/Dextrose/Calcium 1,011 mls @ 75 mls/hr IV TITRATE [facility] Stop: 08/20/19 07:29 Last Admin: 08/19/19 17:54 Dose: 75 mls/hr Multivitamins/Minerals 10 ml/Chromium/Copper/Manganese/Zinc 1 ml/ Amino Ac/ Electrol/Dextrose/Calcium 1,011 mls @ 75 mls/hr IV ONETIME ONE Stop: 08/20/19 21:43 Last Admin: 08/20/19 08:26 Dose: 75 mls/hr Magnesium Sulfate 2 gm/ Premix 50 mls @ 25 mls/hr IV ONETIME ONE Stop: 08/20/19 12:59 Last Admin: 08/20/19 11:27 Dose: 25 mls/hr Multivitamins/Minerals 10 ml/Chromium/Copper/[place]anganese/Zinc 1 ml/ Amino Ac/ Electrol/Dextrose/Calcium 1,011 mls @ 75 mls/hr IV ONETIME ONE Stop: 08/22/19 00:58 Last Admin: 08/21/19 11:51 Dose: 75 mls/hr Influenza Virus Vaccine (Pharmacy To Dose - Influenza Vaccine) 1 each IM ONETIME ONE Stop: 08/07/19 22:46 Influenza Virus Vaccine (Fluzone High-Dose Syringe) 180 mcg IM .ONCE ONE Stop: 08/08/19 10:01 Iopamidol (Isovue-300 (61%)) 100 ml IVPUSH ONETIME ONE Stop: 08/11/19 16:42 Last Admin: 08/11/19 16:44 Dose: 100 ml Ipratropium [place] (Atrovent) 0.5 mg NEB Q4HRRT [facility] Last Admin: 08/11/19 13:29 Dose: 0.5 mg Ketamine HCl (Ketalar) Confirm Administered Dose 500 mg .ROUTE .STK-MED ONE Stop: 08/15/19 15:35 Ketorolac Tromethamine (Toradol) Confirm Administered Dose 30 mg .ROUTE .STK- MED ONE Stop: 08/15/19 18:40 Ketorolac Tromethamine (Toradol) 15 mg IVPUSH Q6H PRN PRN Reason: Pain Stop: 08/18/19 00:31 Last Admin: 08/17/19 20:26 Dose: 15 mg Lidocaine HCl (Xylocaine 1%) Confirm Administered Dose 50 ml .ROUTE .STK-MED ONE Stop: 08/15/19 07:11 Last Admin: 08/15/19 15:09 Dose: 4.5 ml Lidocaine HCl (Xylocaine 1%) Confirm Administered Dose 50 ml .ROUTE .STK-MED ONE Stop: 08/15/19 11:28 Lidocaine HCl (Xylocaine 1%) 20 ml INJECT ONETIME ONE Stop: 08/18/19 17:01 Last Admin: 08/18/19 17:49 Dose: 10 ml Lorazepam (Ativan) 1 mg IVPUSH Q2H PRN PRN Reason: Anxiety Last Admin: 08/21/19 09:22 Dose: 1 mg Magnesium Hydroxide (Milk Of Magnesia) 30 ml PO ONETIME ONE Stop: 08/14/19 07:43 Last Admin: 08/14/19 08:58 Dose: 30 ml Methadone HCl (Methadone) 5 mg PO BID [facility] Last Admin: 08/15/19 21:37 Dose: Not Given Midazolam HCl (Versed 1 Mg/Ml) Confirm Administered Dose 2 mg .ROUTE .STK-MED ONE Stop: 08/15/19 12:15 Miscellaneous Medication (Phenylephrine 1 Mg/10 Ml-Ns) Confirm Administered Dose 1 mg IV .STK-MED ONE Stop: 08/15/19 15:05 Miscellaneous Medication (Phenylephrine 1 Mg/10 Ml-Ns) Confirm Administered Dose 1 mg IV .STK-MED ONE Stop: 08/15/19 16:18 Miscellaneous Medication (Phenylephrine 1 Mg/10 Ml-Ns) Confirm Administered Dose 1 mg IV .STK-MED ONE Stop: 08/15/19 17:47 Miscellaneous Medication (Phenylephrine 1 Mg/10 Ml-Ns) Confirm Administered Dose 1 mg IV .STK-MED ONE Stop: 08/15/19 18:34 Neostigmine Methylsulfate (Neostigmine Methylsulfate) Confirm Administered Dose 5 mg .ROUTE .STK-MED ONE Stop: 08/15/19 16:12 Nicotine (Habitrol) 21 mg TRDERM DAILY [facility] Last Admin: 08/20/19 08:26 Dose: 21 mg Ondansetron HCl (Zofran) 4 mg IVPUSH ONETIME ONE Stop: 08/07/19 16:51 Last Admin: 08/07/19 17:20 Dose: 4 mg Ondansetron HCl (Zofran) 4 mg IVPUSH ONETIME ONE Stop: 08/07/19 19:12 Last Admin: 08/07/19 19:51 Dose: 4 mg Ondansetron HCl (Zofran Odt) 4 mg PO Q6H PRN PRN Reason: nausea, able to take PO Last Admin: 08/13/19 09:44 Dose: 4 mg Ondansetron HCl (Zofran) 4 mg IV Q6H [facility] Last Admin: 08/08/19 06:03 Dose: Not Given Ondansetron HCl (Zofran) 4 mg IV Q6H [facility] Last Admin: 08/08/19 12:40 Dose: 4 mg Ondansetron HCl (Zofran) 4 mg IVPUSH Q8H PRN PRN Reason: Nausea/Vomiting Last Admin: 08/13/19 15:04 Dose: 4 mg Ondansetron HCl (Zofran) 4 mg IVPUSH ONETIME PRN PRN Reason: Nausea/Vomiting Stop: 08/15/19 18:00 Ondansetron HCl (Zofran) Confirm Administered Dose 4 mg .ROUTE .STK-MED ONE Stop: 08/15/19 16:13 Oseltamivir Phosphate (Tamiflu) 75 mg PO BID [facility] Stop: 08/12/19 09:01 Last Admin: 08/12/19 09:24 Dose: 75 mg Propofol (Diprivan 20 Ml) Confirm Administered Dose 200 mg .ROUTE .STK-MED ONE Stop: 08/15/19 12:15 Risperidone (Risperidal) 2 mg PO BEDTIME [facility] Last Admin: 08/15/19 21:36 Dose: Not Given Risperidone (Risperidal) 1 mg PO DAILY [facility] Last Admin: 08/15/19 10:49 Dose: Not Given Rocuronium [place] (Zemuron) Confirm Administered Dose 50 mg .ROUTE .STK-MED ONE Stop: 08/15/19 12:14 Rocuronium [place] (Zemuron) Confirm Administered Dose 50 mg .ROUTE .STK-MED ONE Stop: 08/15/19 16:10 Sodium Chloride (Saline Flush) 10 ml FLUSH ONETIME ONE Stop: 08/11/19 16:42 Last Admin: 08/11/19 16:46 Dose: 10 ml Trazodone HCl (Trazodone) 50 mg PO BEDTIME [facility] Last Admin: 08/15/19 21:50 Dose: Not Given - Exam Wound/Incisions: Healing Well General: Alert, Oriented, Cooperative Lungs: Clear to Auscultation, Normal Respiratory Effort Cardiovascular: Regular Rate, Regular Rhythm, No Murmurs GI/Abdominal Exam: Normal Bowel Sounds, Soft, Non-Tender, No Organomegaly, Distended (mild) Extremities: Normal Inspection Skin: Warm, Dry, Intact Sepsis Event Note - Evaluation Sepsis Screening Result: No Definite Risk - Focused Exam Vital Signs: Vital Signs Temp Pulse Resp BP Pulse Ox 08/22/19 04:19 97.9 F 82 18 99/50 L 94 L 08/21/19 23:37 99.0 F 84 16 111/65 95 08/21/19 19:46 97.7 F 95 20 123/77 95 Date Exam was Performed: 08/22/19 Time Exam was Performed: 07:27 - Problem List Review Problem List Initiated/Reviewed/Updated: No - My Orders Last 24 Hours: Active Orders 24 hr Category Date Time Status Clear Liquid Diet [DIET] Diet 08/21/19 Lunch Active BMP [BASIC METABOLIC PANEL,BMP] [CHEM] AM Lab 08/23/19 05:11 Ordered MAGNESIUM [CHEM] AM Lab 08/23/19 05:11 Ordered PHOSPHORUS [CHEM] AM Lab 08/23/19 05:11 Ordered LORazepam [Ativan] Med 08/21/19 11:32 Active 0.5 mg IVPUSH Q2H PRN Magnesium Sulfate/Water [Magnesium Sulfate in Water Med 08/22/19 07:19 Active Premix] 2 gm Premix Bag 1 bag IV ONETIME Nicotine [Habitrol] Med 08/21/19 09:00 Active 14 mg TRDERM DAILY Medication Orders Acetaminophen (Tylenol) 650 mg PO Q4H PRN PRN Reason: Pain (Mild 1-3)/fever Last Admin: 08/13/19 09:43 Dose: 650 mg Albuterol/Ipratropium (Duoneb 3.0-0.5 Mg/3 Ml) 3 ml NEB QIDRT PRN PRN Reason: SOB/wheezing Famotidine (Pepcid) 20 mg IVPUSH BEDTIME [facility] Last Admin: 08/21/19 20:09 Dose: 20 mg Admin: 08/20/19 21:18 Dose: 20 mg Admin: 08/19/19 20:48 Dose: 20 mg Admin: 08/18/19 20:39 Dose: 20 mg Admin: 08/17/19 20:33 Dose: 20 mg Admin: 08/16/19 21:57 Dose: 20 mg Haloperidol Lactate (Haldol) 5 mg IVPUSH BEDTIME [facility] Last Admin: 08/21/19 20:11 Dose: 5 mg Admin: 08/20/19 21:17 Dose: 5 mg Admin: 08/19/19 20:44 Dose: 5 mg Admin: 08/18/19 20:36 Dose: 5 mg Admin: 08/17/19 20:30 Dose: 5 mg Admin: 08/16/19 21:57 Dose: 5 mg Haloperidol Lactate (Haldol) 2 mg IVPUSH 0600,1400 [facility] Last Admin: 08/22/19 06:09 Dose: 2 mg Admin: 08/21/19 14:37 Dose: 2 mg Admin: 08/21/19 05:52 Dose: 2 mg Admin: 08/20/19 15:08 Dose: 2 mg Admin: 08/20/19 05:40 Dose: 2 mg Admin: 08/19/19 13:03 Dose: 2 mg Admin: 08/19/19 05:39 Dose: 2 mg Admin: 08/18/19 14:19 Dose: 2 mg Admin: 08/18/19 06:55 Dose: 2 mg Admin: 08/17/19 14:48 Dose: 2 mg Admin: 08/17/19 06:03 Dose: 2 mg Admin: 08/16/19 14:36 Dose: Not Given Heparin Sodium (Porcine) (Heparin Sodium) 5,000 units SUBCUT Q8H [facility] Last Admin: 08/22/19 01:36 Dose: 5,000 units Admin: 08/21/19 17:32 Dose: 5,000 units Admin: 08/21/19 08:23 Dose: 5,000 units Admin: 08/21/19 01:32 Dose: Admin: 08/20/19 23:41 Dose: 5,000 units Admin: 08/20/19 17:22 Dose: Not Given Admin: 08/20/19 08:32 Dose: 5,000 units Admin: 08/20/19 00:14 Dose: 5,000 units Admin: 08/19/19 16:47 Dose: Admin: 08/19/19 08:32 Dose: 5,000 units Admin: 08/19/19 00:01 Dose: 5,000 units Admin: 08/18/19 16:17 Dose: Admin: 08/18/19 08:11 Dose: 5,000 units Hydromorphone HCl (Dilaudid) 1 mg IVPUSH Q3H PRN PRN Reason: Pain Last Admin: 08/22/19 04:28 Dose: 1 mg Admin: 08/21/19 23:28 Dose: 1 mg Admin: 08/21/19 15:19 Dose: 1 mg Admin: 08/21/19 08:18 Dose: 1 mg Admin: 08/21/19 04:57 Dose: 1 mg Admin: 08/20/19 23:40 Dose: 1 mg Admin: 08/20/19 18:46 Dose: 1 mg Admin: 08/20/19 15:53 Dose: 1 mg Admin: 08/20/19 08:55 Dose: 1 mg Admin: 08/20/19 05:57 Dose: 1 mg Admin: 08/20/19 01:53 Dose: 1 mg Admin: 08/19/19 20:48 Dose: 1 mg Admin: 08/19/19 14:05 Dose: 1 mg Admin: 08/19/19 09:42 Dose: 1 mg Admin: 08/19/19 06:05 Dose: 1 mg Admin: 08/19/19 01:26 Dose: 1 mg Admin: 08/18/19 17:58 Dose: 1 mg Admin: 08/18/19 11:51 Dose: 1 mg Admin: 08/18/19 09:17 Dose: 1 mg Admin: 08/17/19 14:49 Dose: 1 mg Admin: 08/16/19 18:55 Dose: 1 mg Admin: 08/16/19 15:10 Dose: 1 mg Admin: 08/16/19 08:15 Dose: 1 mg Admin: 08/16/19 00:57 Dose: 1 mg Admin: 08/15/19 21:57 Dose: 1 mg Fat Emulsion Intravenous (Intralipid 20%) 500 mls @ 62.5 mls/hr IV MoWeFr [facility] Last Admin: 08/19/19 12:17 Dose: 62.5 mls/hr Infusion: 08/17/19 20:30 Dose: 62.5 mls/hr Admin: 08/17/19 12:30 Dose: 62.5 mls/hr Sodium Chloride (Normal Saline) 1,000 mls @ 50 mls/hr IV ASDIRECTED [facility] Last Admin: 08/21/19 17:31 Dose: 50 mls/hr Infusion: 08/21/19 17:31 Dose: 50 mls/hr Admin: 08/20/19 21:58 Dose: 50 mls/hr Infusion: 08/20/19 21:31 Dose: 50 mls/hr Admin: 08/20/19 01:31 Dose: 50 mls/hr Infusion: 08/20/19 00:15 Dose: 50 mls/hr Admin: 08/19/19 04:15 Dose: 50 mls/hr Infusion: 08/19/19 04:15 Dose: 50 mls/hr Admin: 08/18/19 08:16 Dose: 50 mls/hr Infusion: 08/18/19 08:16 Dose: 50 mls/hr Admin: 08/17/19 12:31 Dose: 50 mls/hr Amino Ac/Electrol/Dextrose/Calcium (Clinimix E 10/11) 1,000 mls @ 75 mls/hr IV TITRATE [facility] Last Admin: 08/22/19 01:31 Dose: 75 mls/hr Infusion: 08/21/19 11:18 Dose: 75 mls/hr Admin: 08/20/19 21:58 Dose: 75 mls/hr Infusion: 08/19/19 17:33 Dose: 75 mls/hr Admin: 08/19/19 04:13 Dose: 75 mls/hr Infusion: 08/18/19 13:31 Dose: 75 mls/hr Admin: 08/18/19 00:11 Dose: 75 mls/hr Dextrose/Water (Dextrose 10% In Water) 500 mls @ 75 mls/hr IV ASDIRECTED [facility] Last Admin: 08/20/19 07:37 Dose: 75 mls/hr Magnesium Sulfate 2 gm/ Premix 50 mls @ 25 mls/hr IV ONETIME ONE Stop: 08/22/19 09:18 Lorazepam (Ativan) 0.5 mg IVPUSH Q2H PRN PRN Reason: Anxiety Last Admin: 08/21/19 23:33 Dose: 0.5 mg Admin: 08/21/19 19:41 Dose: 0.5 mg Miscellaneous Information (Remove Patch) 1 ea TRDERM DAILY [facility] Last Admin: 08/21/19 08:50 Dose: Admin: 08/20/19 08:36 Dose: 1 ea Admin: 08/19/19 08:35 Dose: 1 ea Admin: 08/18/19 11:31 Dose: 1 ea Nicotine (Habitrol) 14 mg TRDERM DAILY [facility] Last Admin: 08/21/19 08:20 Dose: 14 mg Benztropine 2mg/2ml (Vial) 0 each IVPUSH BEDTIME [facility] Last Admin: 08/21/19 20:15 Dose: 1 each Admin: 08/20/19 21:18 Dose: 1 each Admin: 08/19/19 20:45 Dose: 1 each Admin: 08/18/19 20:43 Dose: 1 each Admin: 08/17/19 20:35 Dose: 1 each Admin: 08/16/19 22:01 Dose: 1 each Ondansetron HCl (Zofran) 4 mg IVPUSH Q4H PRN PRN Reason: Nausea/Vomiting Last Admin: 08/18/19 12:30 Dose: 4 mg Admin: 08/18/19 05:33 Dose: 4 mg Admin: 08/18/19 00:20 Dose: 4 mg Admin: 08/17/19 15:51 Dose: 4 mg Admin: 08/13/19 21:01 Dose: 4 mg Pharmacy Consult (Consult To Pharmacy) 0 each .XX DAILY PRN PRN Reason: TPN MONITORING Sodium Chloride (Saline Flush) 10 ml FLUSH ASDIRECTED PRN PRN Reason: Keep Vein Open Last Admin: 08/11/19 16:44 Dose: 10 ml Admin: 08/11/19 16:43 Dose: 10 ml Admin: 08/07/19 17:21 Dose: 10 ml - Plan Plan (Free Text/Narrative):: patient had pSBO now POD7 s/p ex lap, SANTANA, excision of the cyst. He is progressing well. Tolerated clears yesterday. - Advance diet to FLD today - Continue TPN today - Continue drains today - continue to encourage ambulation
[2019-08-22] MEDS ORDERED: Magnesium Sulfate/Water 4 GM in Premix Bag 1 BAG IV ONE (09:00)
[2019-08-22] MEDS: Nicotine 14 MG/24 Hr Patch TRDERM SCH (09:28)
--- NOTE | 2019-08-22 10:33 | PCM.CONSN ---
- General Info Date of Service: 08/22/19 Admission Dx/Problem (Free Text): Admission Diagnosis/Problem Admission Diagnosis/Problem Pneumonia involving left lung Functional Status: Reports: Pain Controlled, Tolerating Diet (advancing to full liquids ), Ambulating, Urinating, Incentive Spirometry, Other (acapella ). Denies: New Symptoms - Review of Systems General: Reports: Weakness. Denies: Fever, Fatigue, Malaise, Chills HEENT: Reports: No Symptoms. Denies: Headaches, Sore Throat Pulmonary: Reports: No Symptoms. Denies: Shortness of Breath, Cough, Sputum, Wheezing Cardiovascular: Reports: No Symptoms. Denies: Chest Pain, Palpitations, Dyspnea on Exertion Gastrointestinal: Reports: Abdominal Pain (improving ). Denies: Constipation, Diarrhea, Nausea, Vomiting Genitourinary: Reports: No Symptoms. Denies: Pain Musculoskeletal: Reports: No Symptoms Skin: Reports: No Symptoms. Denies: Cyanosis Neurological: Reports: No Symptoms. Denies: Confusion Psychiatric: Reports: No Symptoms - Patient Data Vitals - Most Recent: Last Vital Signs Temp 97.9 F 08/22/19 04:19 Pulse 82 08/22/19 04:19 Resp 18 08/22/19 04:19 BP 99/50 L 08/22/19 04:19 Pulse Ox 94 L 08/22/19 04:19 Orthostatic Blood Pressure [ 109/60 Standing] Orthostatic Blood Pressure [ 120/69 Sitting] Orthostatic Blood Pressure [ 120/79 Supine] Weight - Most Recent: 132 lb 6.4 oz I&O - Last 24 Hours: Intake & Output 08/21/19 08/22/19 08/22/19 22:59 06:59 14:59 Intake Total 1452 120 Output Total 940 1160 Balance 512 -1040 Lab Results Last 24 Hours: Laboratory Results - last 24 hr 08/21/19 08/21/19 08/21/19 Range/Units 06:48 12:02 18:10 Sodium (136-145) mEq/L Potassium (3.5-5.1) mEq/L Chloride (98-107) mEq/L Carbon Dioxide (21-32) mEq/L Anion Gap (5-15) BUN (7-18) mg/dL Creatinine (0.7-1.3) mg/dL Est Cr Clr Drug Dosing mL/min Estimated GFR (MDRD) (>60) mL/min BUN/Creatinine Ratio (14-18) Glucose (80-115) mg/dL POC Glucose 127 H 97 (80-115) mg/dL Calcium (8.5-10.1) mg/dL Phosphorus (2.6-4.7) mg/dL Magnesium (1.8-2.4) mg/dl Urine Color Yellow (Yellow) Urine Appearance Clear (Clear) Urine pH 7.0 (5.0-8.0) Ur Specific [place] 1.020 (1.005-1.030) Urine Protein Negative (Negative) Urine Glucose (UA) Negative (Negative) Urine Ketones Negative (Negative) Urine Occult Blood Trace-intact H (Negative) Urine Nitrite Negative (Negative) Urine Bilirubin Negative (Negative) Urine Urobilinogen 0.2 (0.2-1.0) Ur Leukocyte Esterase Negative (Negative) Urine RBC 0-5 (0-5) /hpf Urine WBC 0-5 (0-5) /hpf Ur Squamous Epith Cells 0-5 (0-5) /hpf Urine Bacteria Not seen (FEW) /hpf Urine Mucus Not seen (FEW) /hpf 08/21/19 08/21/19 08/22/19 Range/Units 18:26 23:50 04:15 Sodium 136 (136-145) mEq/L Potassium 4.2 (3.5-5.1) mEq/L Chloride 104 (98-107) mEq/L Carbon Dioxide 23 (21-32) mEq/L Anion Gap 13.2 (5-15) BUN 14 (7-18) mg/dL Creatinine 0.6 L (0.7-1.3) mg/dL Est Cr Clr Drug Dosing 97.31 mL/min Estimated GFR (MDRD) > 60 (>60) mL/min BUN/Creatinine Ratio 23.3 H (14-18) Glucose 136 H (80-115) mg/dL POC Glucose 124 H 120 H (80-115) mg/dL Calcium 7.5 L (8.5-10.1) mg/dL Phosphorus 3.2 (2.6-4.7) mg/dL Magnesium 1.6 L (1.8-2.4) mg/dl Urine Color (Yellow) Urine Appearance (Clear) Urine pH (5.0-8.0) Ur Specific [place] (1.005-1.030) Urine Protein (Negative) Urine Glucose (UA) (Negative) Urine Ketones (Negative) Urine Occult Blood (Negative) Urine Nitrite (Negative) Urine Bilirubin (Negative) Urine Urobilinogen (0.2-1.0) Ur Leukocyte Esterase (Negative) Urine RBC (0-5) /hpf Urine WBC (0-5) /hpf Ur Squamous Epith Cells (0-5) /hpf Urine Bacteria (FEW) /hpf Urine Mucus (FEW) /hpf 08/22/19 Range/Units 06:38 Sodium (136-145) mEq/L Potassium (3.5-5.1) mEq/L Chloride (98-107) mEq/L Carbon Dioxide (21-32) mEq/L Anion Gap (5-15) BUN (7-18) mg/dL Creatinine (0.7-1.3) mg/dL Est Cr Clr Drug Dosing mL/min Estimated GFR (MDRD) (>60) mL/min BUN/Creatinine Ratio (14-18) Glucose (80-115) mg/dL POC Glucose 120 H (80-115) mg/dL Calcium (8.5-10.1) mg/dL Phosphorus (2.6-4.7) mg/dL Magnesium (1.8-2.4) mg/dl Urine Color (Yellow) Urine Appearance (Clear) Urine pH (5.0-8.0) Ur Specific [place] (1.005-1.030) Urine Protein (Negative) Urine Glucose (UA) (Negative) Urine Ketones (Negative) Urine Occult Blood (Negative) Urine Nitrite (Negative) Urine Bilirubin (Negative) Urine Urobilinogen (0.2-1.0) Ur Leukocyte Esterase (Negative) Urine RBC (0-5) /hpf Urine WBC (0-5) /hpf Ur Squamous Epith Cells (0-5) /hpf Urine Bacteria (FEW) /hpf Urine Mucus (FEW) /hpf Med Orders - Current: Current Medications Acetaminophen (Tylenol) 650 mg PO Q4H PRN PRN Reason: Pain (Mild 1-3)/fever Last Admin: 08/13/19 09:43 Dose: 650 mg Albuterol/Ipratropium (Duoneb 3.0-0.5 Mg/3 Ml) 3 ml NEB QIDRT PRN PRN Reason: SOB/wheezing Famotidine (Pepcid) 20 mg IVPUSH BEDTIME [facility] Last Admin: 08/21/19 20:09 Dose: 20 mg Heparin Sodium (Porcine) (Heparin Sodium) 5,000 units SUBCUT Q8H [facility] Last Admin: 08/22/19 09:28 Dose: 5,000 units Hydromorphone HCl (Dilaudid) 1 mg IVPUSH Q3H PRN PRN Reason: Pain Last Admin: 08/22/19 09:30 Dose: 1 mg Fat Emulsion Intravenous (Intralipid 20%) 500 mls @ 62.5 mls/hr IV MoWeFr [facility] Last Admin: 08/19/19 12:17 Dose: 62.5 mls/hr Sodium Chloride (Normal Saline) 1,000 mls @ 50 mls/hr IV ASDIRECTED [facility] Last Admin: 08/21/19 17:31 Dose: 50 mls/hr Amino Ac/Electrol/Dextrose/Calcium (Clinimix E 10/11) 1,000 mls @ 75 mls/hr IV TITRATE [facility] Last Admin: 08/22/19 01:31 Dose: 75 mls/hr Dextrose/Water (Dextrose 10% In Water) 500 mls @ 75 mls/hr IV ASDIRECTED [facility] Last Admin: 08/20/19 07:37 Dose: 75 mls/hr Multivitamins/Minerals 10 ml/Chromium/Copper/Manganese/Zinc 1 ml/ Amino Ac/ Electrol/Dextrose/Calcium 1,011 mls @ 75 mls/hr IV ONETIME [facility] Stop: 08/23/19 04:29 Magnesium Sulfate 4 gm/ Premix 50 mls @ 12.5 mls/hr IV ONETIME ONE Stop: 08/22/19 12:59 Last Admin: 08/22/19 09:29 Dose: 12.5 mls/hr Lorazepam (Ativan) 0.5 mg IVPUSH Q2H PRN PRN Reason: Anxiety Last Admin: 08/21/19 23:33 Dose: 0.5 mg Miscellaneous Information (Remove Patch) 1 ea TRDERM DAILY [facility] Last Admin: 08/22/19 09:39 Dose: 1 ea Nicotine (Habitrol) 14 mg TRDERM DAILY [facility] Last Admin: 08/22/19 09:28 Dose: 14 mg Ondansetron HCl (Zofran) 4 mg IVPUSH Q4H PRN PRN Reason: Nausea/Vomiting Last Admin: 08/18/19 12:30 Dose: 4 mg Pharmacy Consult (Consult To Pharmacy) 0 each .XX DAILY PRN PRN Reason: TPN MONITORING Sodium Chloride (Saline Flush) 10 ml FLUSH ASDIRECTED PRN PRN Reason: Keep Vein Open Last Admin: 08/11/19 16:44 Dose: 10 ml Discontinued Medications Albuterol (Proventil Neb Soln) 2.5 mg NEB ONETIME PRN PRN Reason: bronchodilation Stop: 08/15/19 18:00 Albuterol/Ipratropium (Duoneb 3.0-0.5 Mg/3 Ml) 3 ml NEB QIDRT [facility] Last Admin: 08/17/19 09:10 Dose: 3 ml Azithromycin (Zithromax) 250 mg PO BEDTIME [facility] Last Admin: 08/11/19 21:06 Dose: 250 mg Benzonatate (Tessalon Perles) 100 mg PO BID [facility] Last Admin: 08/15/19 21:36 Dose: Not Given Benztropine Mesylate (Cogentin) 1 mg PO BEDTIME [facility] Last Admin: 08/15/19 21:37 Dose: Not Given Benztropine Mesylate (Cogentin) 1 mg IVPUSH BEDTIME [facility] Cefazolin Sodium (Ancef) Confirm Administered Dose 2 gm .ROUTE .STK-MED ONE Stop: 08/15/19 15:23 Cefazolin Sodium (Ancef) Confirm Administered Dose 2 gm .ROUTE .STK-MED ONE Stop: 08/15/19 18:13 Cefdinir (Omnicef) 300 mg PO BID [facility] Last Admin: 08/14/19 08:58 Dose: 300 mg Ceftriaxone Sodium (Rocephin) Confirm Administered Dose 2 gm IV .STK-MED ONE Stop: 08/07/19 19:45 Last Admin: 08/07/19 19:51 Dose: Not Given Diatrizoate Meglum/Diatrizoate Sod (Gastrografin 37%) 90 ml PO ONETIME ONE Stop: 08/11/19 16:42 Last Admin: 08/11/19 16:43 Dose: 90 ml Ephedrine Sulfate (Ephedrine Sulfate) 5 mg IVPUSH ASDIRECTED PRN PRN Reason: Hypotension Stop: 08/15/19 18:00 Famotidine (Pepcid) 20 mg IVPUSH ONETIME ONE Stop: 08/20/19 10:01 Last Admin: 08/20/19 09:59 Dose: 20 mg Fentanyl (Sublimaze) Confirm Administered Dose 250 mcg .ROUTE .STK-MED ONE Stop: 08/15/19 12:16 Fentanyl (Sublimaze) 50 mcg IVPUSH Q5M PRN PRN Reason: Pain Stop: 08/15/19 18:00 Fentanyl (Sublimaze) Confirm Administered Dose 100 mcg .ROUTE .STK-MED ONE Stop: 08/15/19 17:11 Glycopyrrolate () Confirm Administered Dose 1 mg .ROUTE .STK-MED ONE Stop: 08/15/19 16:12 Guaifenesin (Mucinex) 600 mg PO BID [facility] Last Admin: 08/15/19 21:37 Dose: Not Given Guaifenesin (Mucinex) 600 mg PO BID [facility] Last Admin: 08/08/19 12:51 Dose: Not Given Haloperidol Lactate (Haldol) 5 mg IVPUSH BEDTIME [facility] Last Admin: 08/15/19 21:51 Dose: 5 mg Haloperidol Lactate (Haldol) 5 mg IV ONETIME PRN PRN Reason: Other Stop: 08/16/19 08:00 Haloperidol Lactate (Haldol) 5 mg IVPUSH Q8H [facility] Last Admin: 08/16/19 09:59 Dose: Not Given Haloperidol Lactate (Haldol) 2 mg IVPUSH ONETIME ONE Stop: 08/16/19 09:01 Last Admin: 08/16/19 09:57 Dose: 2 mg Haloperidol Lactate (Haldol) 5 mg IVPUSH BEDTIME [facility] Last Admin: 08/21/19 20:11 Dose: 5 mg Haloperidol Lactate (Haldol) 2 mg IVPUSH 0600,1400 [facility] Last Admin: 08/22/19 06:09 Dose: 2 mg Hydromorphone HCl (Dilaudid) Confirm Administered Dose 0.5 mg .ROUTE .STK-MED ONE Stop: 08/15/19 15:22 Hydromorphone HCl (Dilaudid) 0.5 mg IVPUSH Q15M PRN PRN Reason: Pain (severe 7-10) Stop: 08/15/19 18:00 Hydromorphone HCl (Dilaudid) Confirm Administered Dose 0.5 mg .ROUTE .STK-MED ONE Stop: 08/15/19 16:18 Hydromorphone HCl (Dilaudid) Confirm Administered Dose 0.5 mg .ROUTE .STK-MED ONE Stop: 08/15/19 18:43 Hydromorphone HCl (Dilaudid) 0.5 mg IVPUSH ONETIME ONE Stop: 08/15/19 20:51 Last Admin: 08/15/19 20:59 Dose: 0.5 mg Hydromorphone HCl (Dilaudid) Confirm Administered Dose 0.5 mg .ROUTE .STK-MED ONE Stop: 08/15/19 21:00 Last Admin: 08/15/19 21:34 Dose: Not Given Hydromorphone HCl (Dilaudid) 0.5 mg IVPUSH Q3H PRN PRN Reason: Abdominal Pain Sodium Chloride (Normal Saline) 1,000 mls @ 150 mls/hr IV ASDIRECTED [facility] Last Admin: 08/08/19 06:02 Dose: 150 mls/hr Ceftriaxone Sodium 2 gm/ (Sodium Chloride) 100 mls @ 200 mls/hr IV ONETIME ONE Stop: 08/07/19 20:00 Last Admin: 08/07/19 19:47 Dose: Not Given Magnesium Sulfate 2 gm/ Premix 50 mls @ 25 mls/hr IV ONETIME ONE Stop: 08/07/19 21:42 Last Admin: 08/07/19 20:24 Dose: 25 mls/hr Ceftriaxone Sodium 2 gm/ (Sodium Chloride) 100 mls @ 200 mls/hr IV Q24H STA Stop: 08/07/19 20:15 Last Admin: 08/07/19 19:49 Dose: 200 mls/hr Sodium Chloride (Normal Saline) Confirm Administered Dose 100 mls @ as directed .ROUTE .STK-MED ONE Stop: 08/07/19 19:45 Last Admin: 08/07/19 19:51 Dose: Not Given Azithromycin 500 mg/ Sodium (Chloride) 250 mls @ 250 mls/hr IV Q24H [facility] Last Admin: 08/10/19 22:08 Dose: 250 mls/hr Ceftriaxone Sodium 2 gm/ (Sodium Chloride) 100 mls @ 200 mls/hr IV Q24H [facility] Last Admin: 08/10/19 21:25 Dose: 200 mls/hr Sodium Chloride (Normal Saline) 1,000 mls @ 75 mls/hr IV ASDIRECTED [facility] Sodium Phosphate 30 mmole/ (Sodium Chloride) 260 mls @ 130 mls/hr IV Q2H [facility] Stop: 08/10/19 15:59 Last Admin: 08/10/19 15:12 Dose: 130 mls/hr Magnesium Sulfate 2 gm/ Premix 50 mls @ 25 mls/hr IV ONETIME ONE Stop: 08/11/19 11:08 Last Admin: 08/11/19 09:38 Dose: 25 mls/hr Sodium Chloride (Normal Saline) 1,000 mls @ 75 mls/hr IV ASDIRECTED [facility] Last Admin: 08/12/19 09:24 Dose: 75 mls/hr Sodium Chloride (Normal Saline) Confirm Administered Dose 1,000 mls @ as directed .ROUTE .STK-MED ONE Stop: 08/11/19 17:34 Last Admin: 08/11/19 17:43 Dose: Not Given Dextrose/Sodium Chloride (Dextrose 5%-Normal Saline) 1,000 mls @ 100 mls/hr IV ASDIRECTED [facility] Last Infusion: 08/13/19 12:35 Dose: 50 mls/hr Dextrose/Sodium Chloride (Dextrose 5%-Normal Saline) 1,000 mls @ 50 mls/hr IV ASDIRECTED [facility] Dextrose/Sodium Chloride (Dextrose 5%-Normal Saline) 1,000 mls @ 125 mls/hr IV ASDIRECTED [facility] Last Admin: 08/16/19 01:04 Dose: 125 mls/hr Lidocaine HCl (Xylocaine-Mpf 1%) Confirm Administered Dose 4 mls @ as directed .ROUTE .STK-MED ONE Stop: 08/15/19 14:43 Lactated Ringer's (Ringers, Lactated) Confirm Administered Dose 1,000 mls @ as directed .ROUTE .STK-MED ONE Stop: 08/15/19 15:18 Lactated Ringer's (Ringers, Lactated) Confirm Administered Dose 1,000 mls @ as directed .ROUTE .STK-MED ONE Stop: 08/15/19 15:18 Phenylephrine HCl 1 mg/ Sodium (Chloride) 10.1 mls @ 1 mls/sec IV TITRATE [facility]; Protocol Stop: 08/15/19 18:00 Lactated Ringer's (Ringers, Lactated) Confirm Administered Dose 1,000 mls @ as directed .ROUTE .STK-MED ONE Stop: 08/15/19 15:57 Lactated Ringer's (Ringers, Lactated) Confirm Administered Dose 1,000 mls @ as directed .ROUTE .STK-MED ONE Stop: 08/15/19 18:09 Magnesium Sulfate 2 gm/ Premix 50 mls @ 25 mls/hr IV ONETIME ONE Stop: 08/16/19 10:10 Last Admin: 08/16/19 08:45 Dose: Not Given Magnesium Sulfate 4 gm/ Premix 50 mls @ 12.5 mls/hr IV ONETIME ONE Stop: 08/16/19 12:28 Last Admin: 08/16/19 08:46 Dose: 12.5 mls/hr Dextrose/Sodium Chloride (Dextrose 5%-Normal Saline) 1,000 mls @ 100 mls/hr IV ASDIRECTED [facility] Stop: 08/16/19 13:00 Last Infusion: 08/16/19 12:20 Dose: 20 mls/hr Dextrose/Sodium Chloride (Dextrose 5%-Normal Saline) 1,000 mls @ 20 mls/hr IV ASDIRECTED [facility] Last Admin: 08/17/19 06:33 Dose: 20 mls/hr Multivitamins/Minerals 10 ml/Chromium/Copper/Manganese/Zinc 1 ml/ Amino Ac/ Electrol/Dextrose/Calcium 1,011 mls @ 45 mls/hr IV ONETIME ONE Stop: 08/17/19 11:27 Last Admin: 08/16/19 13:15 Dose: 45 mls/hr Adjust Tpn Rate 720 mls @ 60 mls/hr .XX ONETIME ONE Stop: 08/17/19 12:59 Last Admin: 08/17/19 00:56 Dose: 60 mls/hr Multivitamins/Minerals 10 ml/Chromium/Copper/Manganese/Zinc 1 ml/ Amino Ac/ Electrol/Dextrose/Calcium 1,011 mls @ 60 mls/hr IV TITRATE [facility] Stop: 08/18/19 01:50 Last Admin: 08/17/19 08:52 Dose: 60 mls/hr Adjust Tpn Rate 720 mls @ 75 mls/hr .XX ONETIME ONE Stop: 08/17/19 22:35 Last Admin: 08/17/19 14:13 Dose: Not Given Multivitamins/Minerals 10 ml/Chromium/Copper/Manganese/Zinc 1 ml/ Amino Ac/ Electrol/Dextrose/Calcium 1,011 mls @ 75 mls/hr IV TITRATE [facility] Stop: 08/19/19 01:29 Last Admin: 08/18/19 14:35 Dose: 75 mls/hr Magnesium Sulfate/Dextrose (Magnesium Sulfate In D5w 100 Premix) 1 gm in 100 mls @ 100 mls/hr IV ONETIME ONE Stop: 08/19/19 09:59 Last Admin: 08/19/19 09:42 Dose: 100 mls/hr Multivitamins/Minerals 10 ml/Chromium/Copper/Manganese/Zinc 1 ml/ Amino Ac/ Electrol/Dextrose/Calcium 1,011 mls @ 75 mls/hr IV TITRATE [facility] Stop: 08/20/19 07:29 Last Admin: 08/19/19 17:54 Dose: 75 mls/hr Multivitamins/Minerals 10 ml/Chromium/Copper/Manganese/Zinc 1 ml/ Amino Ac/ Electrol/Dextrose/Calcium 1,011 mls @ 75 mls/hr IV ONETIME ONE Stop: 08/20/19 21:43 Last Admin: 08/20/19 08:26 Dose: 75 mls/hr Magnesium Sulfate 2 gm/ Premix 50 mls @ 25 mls/hr IV ONETIME ONE Stop: 08/20/19 12:59 Last Admin: 08/20/19 11:27 Dose: 25 mls/hr Multivitamins/Minerals 10 ml/Chromium/Copper/Manganese/Zinc 1 ml/ Amino Ac/ Electrol/Dextrose/Calcium 1,011 mls @ 75 mls/hr IV ONETIME ONE Stop: 08/22/19 00:58 Last Admin: 08/21/19 11:51 Dose: 75 mls/hr Influenza Virus Vaccine (Pharmacy To Dose - Influenza Vaccine) 1 each IM ONETIME ONE Stop: 08/07/19 22:46 Influenza Virus Vaccine (Fluzone High-Dose Syringe) 180 mcg IM .ONCE ONE Stop: 08/08/19 10:01 Iopamidol (Isovue-300 (61%)) 100 ml IVPUSH ONETIME ONE Stop: 08/11/19 16:42 Last Admin: 08/11/19 16:44 Dose: 100 ml Ipratropium [place] (Atrovent) 0.5 mg NEB Q4HRRT [facility] Last Admin: 08/11/19 13:29 Dose: 0.5 mg Ketamine HCl (Ketalar) Confirm Administered Dose 500 mg .ROUTE .STK-MED ONE Stop: 08/15/19 15:35 Ketorolac Tromethamine (Toradol) Confirm Administered Dose 30 mg .ROUTE .STK- MED ONE Stop: 08/15/19 18:40 Ketorolac Tromethamine (Toradol) 15 mg IVPUSH Q6H PRN PRN Reason: Pain Stop: 08/18/19 00:31 Last Admin: 08/17/19 20:26 Dose: 15 mg Lidocaine HCl (Xylocaine 1%) Confirm Administered Dose 50 ml .ROUTE .STK-MED ONE Stop: 08/15/19 07:11 Last Admin: 08/15/19 15:09 Dose: 4.5 ml Lidocaine HCl (Xylocaine 1%) Confirm Administered Dose 50 ml .ROUTE .STK-MED ONE Stop: 08/15/19 11:28 Lidocaine HCl (Xylocaine 1%) 20 ml INJECT ONETIME ONE Stop: 08/18/19 17:01 Last Admin: 08/18/19 17:49 Dose: 10 ml Lorazepam (Ativan) 1 mg IVPUSH Q2H PRN PRN Reason: Anxiety Last Admin: 08/21/19 09:22 Dose: 1 mg Magnesium Hydroxide (Milk Of Magnesia) 30 ml PO ONETIME ONE Stop: 08/14/19 07:43 Last Admin: 08/14/19 08:58 Dose: 30 ml Methadone HCl (Methadone) 5 mg PO BID [facility] Last Admin: 08/15/19 21:37 Dose: Not Given Midazolam HCl (Versed 1 Mg/Ml) Confirm Administered Dose 2 mg .ROUTE .STK-MED ONE Stop: 08/15/19 12:15 Miscellaneous Medication (Phenylephrine 1 Mg/10 Ml-Ns) Confirm Administered Dose 1 mg IV .STK-MED ONE Stop: 08/15/19 15:05 Miscellaneous Medication (Phenylephrine 1 Mg/10 Ml-Ns) Confirm Administered Dose 1 mg IV .STK-MED ONE Stop: 08/15/19 16:18 Miscellaneous Medication (Phenylephrine 1 Mg/10 Ml-Ns) Confirm Administered Dose 1 mg IV .STK-MED ONE Stop: 08/15/19 17:47 Miscellaneous Medication (Phenylephrine 1 Mg/10 Ml-Ns) Confirm Administered Dose 1 mg IV .STK-MED ONE Stop: 08/15/19 18:34 Neostigmine Methylsulfate (Neostigmine Methylsulfate) Confirm Administered Dose 5 mg .ROUTE .STK-MED ONE Stop: 08/15/19 16:12 Nicotine (Habitrol) 21 mg TRDERM DAILY [facility] Last Admin: 08/20/19 08:26 Dose: 21 mg Benztropine 2mg/2ml (Vial) 0 each IVPUSH BEDTIME [facility] Last Admin: 08/21/19 20:15 Dose: 1 each Ondansetron HCl (Zofran) 4 mg IVPUSH ONETIME ONE Stop: 08/07/19 16:51 Last Admin: 08/07/19 17:20 Dose: 4 mg Ondansetron HCl (Zofran) 4 mg IVPUSH ONETIME ONE Stop: 08/07/19 19:12 Last Admin: 08/07/19 19:51 Dose: 4 mg Ondansetron HCl (Zofran Odt) 4 mg PO Q6H PRN PRN Reason: nausea, able to take PO Last Admin: 08/13/19 09:44 Dose: 4 mg Ondansetron HCl (Zofran) 4 mg IV Q6H [facility] Last Admin: 08/08/19 06:03 Dose: Not Given Ondansetron HCl (Zofran) 4 mg IV Q6H [facility] Last Admin: 08/08/19 12:40 Dose: 4 mg Ondansetron HCl (Zofran) 4 mg IVPUSH Q8H PRN PRN Reason: Nausea/Vomiting Last Admin: 08/13/19 15:04 Dose: 4 mg Ondansetron HCl (Zofran) 4 mg IVPUSH ONETIME PRN PRN Reason: Nausea/Vomiting Stop: 08/15/19 18:00 Ondansetron HCl (Zofran) Confirm Administered Dose 4 mg .ROUTE .STK-MED ONE Stop: 08/15/19 16:13 Oseltamivir Phosphate (Tamiflu) 75 mg PO BID [facility] Stop: 08/12/19 09:01 Last Admin: 08/12/19 09:24 Dose: 75 mg Propofol (Diprivan 20 Ml) Confirm Administered Dose 200 mg .ROUTE .STK-MED ONE Stop: 08/15/19 12:15 Risperidone (Risperidal) 2 mg PO BEDTIME [facility] Last Admin: 08/15/19 21:36 Dose: Not Given Risperidone (Risperidal) 1 mg PO DAILY [facility] Last Admin: 08/15/19 10:49 Dose: Not Given Rocuronium [place] (Zemuron) Confirm Administered Dose 50 mg .ROUTE .STK-MED ONE Stop: 08/15/19 12:14 Rocuronium [place] (Zemuron) Confirm Administered Dose 50 mg .ROUTE .STK-MED ONE Stop: 08/15/19 16:10 Sodium Chloride (Saline Flush) 10 ml FLUSH ONETIME ONE Stop: 08/11/19 16:42 Last Admin: 08/11/19 16:46 Dose: 10 ml Trazodone HCl (Trazodone) 50 mg PO BEDTIME [facility] Last Admin: 08/15/19 21:50 Dose: Not Given - Exam Quality Assessment: Central Line/PICC, DVT Prophylaxis General: Alert, Oriented, Cooperative, No Acute Distress HEENT: Pupils Equal, Pupils Reactive, Mucous Membr. Moist/[place] Neck: Supple Lungs: Clear to Auscultation, Normal Respiratory Effort Cardiovascular: Regular Rate, Regular Rhythm GI/Abdominal Exam: Normal Bowel Sounds, Soft, No Distention, Tender, Other ( Bilateral KYRIE drains ) (Male) Exam: Deferred Back Exam: Normal Inspection, Full Range of Motion Extremities: Normal Inspection, Normal Range of Motion, Non-Tender, No Pedal Edema, Normal Capillary Refill Skin: Warm, Dry, Intact Neurological: No New Focal Deficit Psy/Mental Status: Alert, Normal Affect, Normal Mood Sepsis Event Note - Evaluation Sepsis Screening Result: No Definite Risk - Focused Exam Vital Signs: Vital Signs Temp Pulse Resp BP Pulse Ox 08/22/19 04:19 97.9 F 82 18 99/50 L 94 L 08/21/19 23:37 99.0 F 84 16 111/65 95 Date Exam was Performed: 08/22/19 Time Exam was Performed: 12:18 Consult PN Assessment/Plan POD#: 7 (1) Acute hypoxemic respiratory failure SNOMED Code(s): 645075825 Code(s): J96.01 - ACUTE RESPIRATORY FAILURE WITH HYPOXIA Priority: High Current Visit: Yes (2) Chronic pain SNOMED Code(s): 97758909 Code(s): G89.29 - OTHER CHRONIC PAIN Priority: Medium Current Visit: Yes Qualifiers: Chronic pain type: other chronic pain Qualified Code(s): G89.29 - Other chronic pain (3) Hypoalbuminemia SNOMED Code(s): 374641051 Code(s): E88.09 - OTH DISORDERS OF PLASMA-PROTEIN METABOLISM, NEC Priority : High Current Visit: Yes (4) Hypomagnesemia SNOMED Code(s): 586072940 Code(s): E83.42 - HYPOMAGNESEMIA Priority: High Current Visit: Yes (5) Hyponatremia SNOMED Code(s): 42680437 Code(s): E87.1 - HYPO-OSMOLALITY AND HYPONATREMIA Priority: High Current Visit: Yes (6) Hypophosphatemia SNOMED Code(s): 1933436 Code(s): E83.39 - OTHER DISORDERS OF PHOSPHORUS METABOLISM Priority: High Current Visit: Yes (7) Intractable nausea and vomiting SNOMED Code(s): 628203740 Code(s): R11.2 - NAUSEA WITH VOMITING, UNSPECIFIED Priority: High Current Visit: Yes (8) Leukocytosis SNOMED Code(s): 825489651, 712120297 Code(s): D72.829 - ELEVATED WHITE BLOOD CELL COUNT, UNSPECIFIED Priority: High Current Visit: Yes Qualifiers: Leukocytosis type: unspecified Qualified Code(s): D72.829 - Elevated white blood cell count, unspecified (9) Lung nodule SNOMED Code(s): 262101062 Code(s): R91.1 - SOLITARY PULMONARY NODULE Priority: High Current Visit: Yes (10) Macrocytosis without anemia SNOMED Code(s): 637895403 Code(s): D75.89 - OTHER SPECIFIED DISEASES OF BLOOD AND BLOOD-FORMING ORGANS Priority: High Current Visit: Yes (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 Code(s): 59552372, 922271431 Code(s): F11.20 - OPIOID DEPENDENCE, UNCOMPLICATED Priority: Medium Current Visit: Yes (12) Pneumonia SNOMED Code(s): 555474466 Code(s): J18.9 - PNEUMONIA, UNSPECIFIED ORGANISM Priority: High Current Visit: Yes Qualifiers: Pneumonia type: due to unspecified organism Laterality: unspecified laterality Lung location: unspecified part of lung Qualified Code(s): J18.9 - Pneumonia, unspecified organism (13) Productive cough SNOMED Code(s): 63248402, 918266120, 847553919 Code(s): R05 - COUGH Priority: High Current Visit: Yes (14) Schizophrenia SNOMED Code(s): 38792880 Code(s): F20.9 - SCHIZOPHRENIA, UNSPECIFIED Priority: Medium Current Visit: Yes Qualifiers: Schizophrenia type: unspecified Qualified Code(s): F20.9 - Schizophrenia, unspecified (15) Smoker SNOMED Code(s): 73830062 Code(s): F17.200 - NICOTINE DEPENDENCE, UNSPECIFIED, UNCOMPLICATED Priority : Medium Current Visit: Yes (16) Tachycardia SNOMED Code(s): 0872959 Code(s): R00.0 - TACHYCARDIA, UNSPECIFIED Priority: High Current Visit: Yes (17) Small bowel obstruction SNOMED Code(s): 951174872 Code(s): K56.609 - UNSP INTESTNL OBST, UNSP TO PARTIAL VERSUS COMPLETE OBST Priority: High Current Visit: Yes (18) Laparoscopic surgical procedure converted to open procedure SNOMED Code(s): 013629839 Code(s): Z53.31 - LAPAROSCOPIC SURGICAL PROCEDURE CONVERTED TO OPEN PROCEDURE Priority: High Current Visit: Yes (19) S/P laparotomy SNOMED Code(s): 523239563, 006971492, 522906525 Code(s): Z98.890 - OTHER SPECIFIED POSTPROCEDURAL STATES Priority: High Current Visit: Yes Problem List Initiated/Reviewed/Updated: Yes Plan: Postop day 7 Exploratory laparotomy, extensive lysis of adhesions, liver cyst excision, CVC placement. Patient is doing well. Postop ileus - resolving Active bowel sounds Large BM on 08/21/19 Plan - Continue TPN and lipids - Dr. Egan managing pain and TPN co-managed with dietary and pharmacy - IV fluids as ordered SBO -post exploratory open laparotomy with Dr. Egan Initially presented with intractable nausea and vomiting to ED Has been stable since admission, vomited x1 on 08/11/19 after drinking coffee Tender knob in RUQ noted on physical exam - not gallbladder, calcified mass on CT. Patient reports chronic since [address] scan Multiple adhesions and right upper quadrant mass excised. PLAN - NG tube pulled by patient - Dr. Egan ok'd to keep out - Advanced diet to full liquids per Dr. 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 Egan Muscle wasting Hypoalbuminemia Macrocytosis without anemia Significant muscle wasting Vitamin B12 level and folic acid level WNL Pre-albumin low PLAN -Plastic Dolls Mold Filler consult -Monitor intake once off NPO status Follow electrolytes closely PROPHYLAXIS DVT- compression stockings, Heparin CODE STATUS: FULL CODE LOS >96 HRS due to exploratory laparotomy, resulting ileus, awaiting advancement of diet IV fluids/nutrition. Discussed case with Dr. Egan, who performed surgery on Mr. Mathews. Because this is a surgical case at this point, he will graciously take over as primary provider. Hospitalist team will continue to follow closely as consultants and assist in any way as needed.
[2019-08-22] MEDS: Fat Emulsion 500 ML IV SCH (13:02)
[2019-08-22] MEDS: Acetaminophen 325 MG Tab PO PRN (13:41)
[2019-08-22] MEDS ORDERED: MANG IV SCH ×3 (15:00)
[2019-08-22] MEDS ORDERED: ZINC IV SCH ×3 (15:00)
[2019-08-22] MEDS ORDERED: VITAMIN K IV SCH ×3 (15:00)
[2019-08-22] MEDS ORDERED: MVI IV SCH ×3 (15:00)
[2019-08-22] MEDS ORDERED: CHROMIUM IV SCH ×3 (15:00)
[2019-08-22] MEDS ORDERED: COPPER IV SCH ×3 (15:00)
[2019-08-22] MEDS ORDERED: [UNRECOGNIZED DRUG - OTHER] IV SCH ×3 (15:00)
[2019-08-22] MEDS: LORazepam 2 MG/ML SDV IVPUSH PRN (16:32)
[2019-08-22] MEDS: Ondansetron 4 MG/2 ML SDV IVPUSH PRN (19:44)
[2019-08-22] MEDS: Benztropine 1 MG Tab PO SCH (21:11)
[2019-08-22] MEDS: risperiDONE 1 MG Tab PO SCH (21:11)
[2019-08-22] MEDS: Methadone 5 MG Tab PO SCH (21:12)
[2019-08-22] MEDS: traZODone 50 MG Tab PO SCH (21:12)
[2019-08-22] MEDS: Pantoprazole 40 MG Tab.CR PO SCH (21:12)
[2019-08-23] MEDS: Heparin Sodium 5,000 Units/ML Vial SUBCUT SCH ×3 (00:57→17:13)
[2019-08-23] MEDS: Ondansetron 4 MG/2 ML SDV IVPUSH PRN (02:46)
[2019-08-23] MEDS: AA 5%/Calcium/D20W/Lytes 1,000 ML IV SCH ×4 (05:13→18:45)
[2019-08-23] MEDS: HYDROmorphone 1 MG/ML Syringe IVPUSH PRN (06:57)
--- NOTE | 2019-08-23 07:53 | PCM.SURGPN ---
- General Info Date of Service: 08/23/19 POD#: 8 Functional Status: Reports: Pain Controlled, Tolerating Diet, Ambulating, Urinating Pain Score: 3 - Review of Systems General: Reports: No Symptoms HEENT: Reports: No Symptoms Pulmonary: Reports: No Symptoms Cardiovascular: Reports: No Symptoms Gastrointestinal: Reports: Abdominal Pain Genitourinary: Reports: No Symptoms Musculoskeletal: Reports: No Symptoms - Patient Data Vitals - Most Recent: Last Vital Signs Temp 97.2 F 08/23/19 02:51 Pulse 104 H 08/23/19 02:51 Resp 18 08/23/19 02:51 BP 104/57 L 08/23/19 02:51 Pulse Ox 92 L 08/23/19 02:51 Orthostatic Blood Pressure [ 109/60 Standing] Orthostatic Blood Pressure [ 120/69 Sitting] Orthostatic Blood Pressure [ 120/79 Supine] Weight - Most Recent: 59.829 kg I&O - Last 24 Hours: Intake & Output 08/22/19 08/23/19 08/23/19 22:59 06:59 14:59 Intake Total 2313 1295 Output Total 2385 1450 Balance -72 -155 Lab Results Last 24 Hrs: Laboratory Results - last 24 hr 08/22/19 08/22/19 08/23/19 Range/Units 13:02 18:07 00:34 Sodium (136-145) mEq/L Potassium (3.5-5.1) mEq/L Chloride (98-107) mEq/L Carbon Dioxide (21-32) mEq/L Anion Gap (5-15) BUN (7-18) mg/dL Creatinine (0.7-1.3) mg/dL Est Cr Clr Drug Dosing mL/min Estimated GFR (MDRD) (>60) mL/min BUN/Creatinine Ratio (14-18) Glucose (80-115) mg/dL POC Glucose 129 H 147 H 131 H (80-115) mg/dL Calcium (8.5-10.1) mg/dL Phosphorus (2.6-4.7) mg/dL Magnesium (1.8-2.4) mg/dl 08/23/19 08/23/19 Range/Units 05:25 05:28 Sodium 137 (136-145) mEq/L Potassium 4.4 (3.5-5.1) mEq/L Chloride 105 (98-107) mEq/L Carbon Dioxide 27 (21-32) mEq/L Anion Gap 9.4 (5-15) BUN 15 (7-18) mg/dL Creatinine 0.7 (0.7-1.3) mg/dL Est Cr Clr Drug Dosing 83.10 mL/min Estimated GFR (MDRD) > 60 (>60) mL/min BUN/Creatinine Ratio 21.4 H (14-18) Glucose 113 (80-115) mg/dL POC Glucose 101 (80-115) mg/dL Calcium 7.7 L (8.5-10.1) mg/dL Phosphorus 4.0 (2.6-4.7) mg/dL Magnesium 2.0 (1.8-2.4) mg/dl Med Orders - Current: Current Medications Acetaminophen (Tylenol) 650 mg PO Q4H PRN PRN Reason: Pain (Mild 1-3)/fever Last Admin: 08/22/19 13:41 Dose: 650 mg Albuterol/Ipratropium (Duoneb 3.0-0.5 Mg/3 Ml) 3 ml NEB QIDRT PRN PRN Reason: SOB/wheezing Benztropine Mesylate (Cogentin) 1 mg PO BEDTIME [facility] [place] Last Admin: 08/22/19 21:11 Dose: 1 mg Heparin Sodium (Porcine) (Heparin Sodium) 5,000 units SUBCUT Q8H [facility] [place] Last Admin: 08/23/19 00:57 Dose: 5,000 units Hydromorphone HCl (Dilaudid) 1 mg IVPUSH Q3H PRN PRN Reason: Pain Last Admin: 08/23/19 06:57 Dose: 1 mg Fat Emulsion Intravenous (Intralipid 20%) 500 mls @ 62.5 mls/hr IV MoWeFr [facility] [place] Last Admin: 08/22/19 13:02 Dose: 62.5 mls/hr Amino Ac/Electrol/Dextrose/Calcium (Clinimix E 10/11) 1,000 mls @ 75 mls/hr IV TITRATE [facility] [place] Last Admin: 08/23/19 05:13 Dose: 75 mls/hr Dextrose/Water (Dextrose 10% In Water) 500 mls @ 75 mls/hr IV ASDIRECTED [facility] [place] Last Admin: 08/20/19 07:37 Dose: 75 mls/hr Lorazepam (Ativan) 0.5 mg IVPUSH Q2H PRN PRN Reason: Anxiety Last Admin: 08/22/19 16:32 Dose: 0.5 mg Methadone HCl (Methadone) 5 mg PO BID [facility] [place] Last Admin: 08/22/19 21:12 Dose: 5 mg Miscellaneous Information (Remove Patch) 1 ea TRDERM DAILY [facility] [place] Last Admin: 08/22/19 09:39 Dose: 1 ea Nicotine (Habitrol) 14 mg TRDERM DAILY [facility] [place] Last Admin: 08/22/19 09:28 Dose: 14 mg Ondansetron HCl (Zofran) 4 mg IVPUSH Q4H PRN PRN Reason: Nausea/Vomiting Last Admin: 08/23/19 02:46 Dose: 4 mg Pantoprazole Sodium (Protonix) 40 mg PO BEDTIME [facility] [place] Last Admin: 08/22/19 21:12 Dose: 40 mg Pharmacy Consult (Consult To Pharmacy) 0 each .XX DAILY PRN PRN Reason: TPN MONITORING Risperidone (Risperidal) 1 mg PO DAILY [facility] [place] Risperidone (Risperidal) 2 mg PO BEDTIME [facility] [place] Last Admin: 08/22/19 21:11 Dose: 2 mg Sodium Chloride (Saline Flush) 10 ml FLUSH ASDIRECTED PRN PRN Reason: Keep Vein Open Last Admin: 08/11/19 16:44 Dose: 10 ml Trazodone HCl (Trazodone) 50 mg PO BEDTIME [facility] [place] Last Admin: 08/22/19 21:12 Dose: 50 mg Discontinued Medications Albuterol (Proventil Neb Soln) 2.5 mg NEB ONETIME PRN PRN Reason: bronchodilation Stop: 08/15/19 18:00 Albuterol/Ipratropium (Duoneb 3.0-0.5 Mg/3 Ml) 3 ml NEB QIDRT [facility] [place] Last Admin: 08/17/19 09:10 Dose: 3 ml Azithromycin (Zithromax) 250 mg PO BEDTIME [facility] [place] Last Admin: 08/11/19 21:06 Dose: 250 mg Benzonatate (Tessalon Perles) 100 mg PO BID [facility] [place] Last Admin: 08/15/19 21:36 Dose: Not Given Benztropine Mesylate (Cogentin) 1 mg PO BEDTIME [facility] [place] Last Admin: 08/15/19 21:37 Dose: Not Given Benztropine Mesylate (Cogentin) 1 mg IVPUSH BEDTIME [facility] [place] Benztropine Mesylate (Benztropine) 1 mg IVPUSH BEDTIME [facility] Stop: 08/21/19 21:01 Last Admin: 08/22/19 20:19 Dose: Not Given Cefazolin Sodium (Ancef) Confirm Administered Dose 2 gm .ROUTE .STK-MED ONE Stop: 08/15/19 15:23 Cefazolin Sodium (Ancef) Confirm Administered Dose 2 gm .ROUTE .STK-MED ONE Stop: 08/15/19 18:13 Cefdinir (Omnicef) 300 mg PO BID [facility] [place] Last Admin: 08/14/19 08:58 Dose: 300 mg Ceftriaxone Sodium (Rocephin) Confirm Administered Dose 2 gm IV .STK-MED ONE Stop: 08/07/19 19:45 Last Admin: 08/07/19 19:51 Dose: Not Given Diatrizoate Meglum/Diatrizoate Sod (Gastrografin 37%) 90 ml PO ONETIME ONE Stop: 08/11/19 16:42 Last Admin: 08/11/19 16:43 Dose: 90 ml Ephedrine Sulfate (Ephedrine Sulfate) 5 mg IVPUSH ASDIRECTED PRN PRN Reason: Hypotension Stop: 08/15/19 18:00 Famotidine (Pepcid) 20 mg IVPUSH BEDTIME [facility] [place] Last Admin: 08/21/19 20:09 Dose: 20 mg Famotidine (Pepcid) 20 mg IVPUSH ONETIME ONE Stop: 08/20/19 10:01 Last Admin: 08/20/19 09:59 Dose: 20 mg Fentanyl (Sublimaze) Confirm Administered Dose 250 mcg .ROUTE .STK-MED ONE Stop: 08/15/19 12:16 Fentanyl (Sublimaze) 50 mcg IVPUSH Q5M PRN PRN Reason: Pain Stop: 08/15/19 18:00 Fentanyl (Sublimaze) Confirm Administered Dose 100 mcg .ROUTE .STK-MED ONE Stop: 08/15/19 17:11 Glycopyrrolate () Confirm Administered Dose 1 mg .ROUTE .STK-MED ONE Stop: 08/15/19 16:12 Guaifenesin (Mucinex) 600 mg PO BID [facility] [place] Last Admin: 08/15/19 21:37 Dose: Not Given Guaifenesin (Mucinex) 600 mg PO BID [facility] [place] Last Admin: 08/08/19 12:51 Dose: Not Given Haloperidol Lactate (Haldol) 5 mg IVPUSH BEDTIME [facility] [place] Last Admin: 08/15/19 21:51 Dose: 5 mg Haloperidol Lactate (Haldol) 5 mg IV ONETIME PRN PRN Reason: Other Stop: 08/16/19 08:00 Haloperidol Lactate (Haldol) 5 mg IVPUSH Q8H [facility] [place] Last Admin: 08/16/19 09:59 Dose: Not Given Haloperidol Lactate (Haldol) 2 mg IVPUSH ONETIME ONE Stop: 08/16/19 09:01 Last Admin: 08/16/19 09:57 Dose: 2 mg Haloperidol Lactate (Haldol) 5 mg IVPUSH BEDTIME [facility] [place] Last Admin: 08/21/19 20:11 Dose: 5 mg Haloperidol Lactate (Haldol) 2 mg IVPUSH 0600,1400 [facility] [place] Last Admin: 08/22/19 06:09 Dose: 2 mg Hydromorphone HCl (Dilaudid) Confirm Administered Dose 0.5 mg .ROUTE .STK-MED ONE Stop: 08/15/19 15:22 Hydromorphone HCl (Dilaudid) 0.5 mg IVPUSH Q15M PRN PRN Reason: Pain (severe 7-10) Stop: 08/15/19 18:00 Hydromorphone HCl (Dilaudid) Confirm Administered Dose 0.5 mg .ROUTE .STK-MED ONE Stop: 08/15/19 16:18 Hydromorphone HCl (Dilaudid) Confirm Administered Dose 0.5 mg .ROUTE .STK-MED ONE Stop: 08/15/19 18:43 Hydromorphone HCl (Dilaudid) 0.5 mg IVPUSH ONETIME ONE Stop: 08/15/19 20:51 Last Admin: 08/15/19 20:59 Dose: 0.5 mg Hydromorphone HCl (Dilaudid) Confirm Administered Dose 0.5 mg .ROUTE .STK-MED ONE Stop: 08/15/19 21:00 Last Admin: 08/15/19 21:34 Dose: Not Given Hydromorphone HCl (Dilaudid) 0.5 mg IVPUSH Q3H PRN PRN Reason: Abdominal Pain Sodium Chloride (Normal Saline) 1,000 mls @ 150 mls/hr IV ASDIRECTED [facility] [place] Last Admin: 08/08/19 06:02 Dose: 150 mls/hr Ceftriaxone Sodium 2 gm/ (Sodium Chloride) 100 mls @ 200 mls/hr IV ONETIME ONE Stop: 08/07/19 20:00 Last Admin: 08/07/19 19:47 Dose: Not Given Magnesium Sulfate 2 gm/ Premix 50 mls @ 25 mls/hr IV ONETIME ONE Stop: 08/07/19 21:42 Last Admin: 08/07/19 20:24 Dose: 25 mls/hr Ceftriaxone Sodium 2 gm/ (Sodium Chloride) 100 mls @ 200 mls/hr IV Q24H [facility] Stop: 08/07/19 20:15 Last Admin: 08/07/19 19:49 Dose: 200 mls/hr Sodium Chloride (Normal Saline) Confirm Administered Dose 100 mls @ as directed .ROUTE .STK-MED ONE Stop: 08/07/19 19:45 Last Admin: 08/07/19 19:51 Dose: Not Given Azithromycin 500 mg/ Sodium (Chloride) 250 mls @ 250 mls/hr IV Q24H [facility] [place] Last Admin: 08/10/19 22:08 Dose: 250 mls/hr Ceftriaxone Sodium 2 gm/ (Sodium Chloride) 100 mls @ 200 mls/hr IV Q24H [facility] [place] Last Admin: 08/10/19 21:25 Dose: 200 mls/hr Sodium Chloride (Normal Saline) 1,000 mls @ 75 mls/hr IV ASDIRECTED [facility] [place] Sodium Phosphate 30 mmole/ (Sodium Chloride) 260 mls @ 130 mls/hr IV Q2H [facility] [place] Stop: 08/10/19 15:59 Last Admin: 08/10/19 15:12 Dose: 130 mls/hr Magnesium Sulfate 2 gm/ Premix 50 mls @ 25 mls/hr IV ONETIME ONE Stop: 08/11/19 11:08 Last Admin: 08/11/19 09:38 Dose: 25 mls/hr Sodium Chloride (Normal Saline) 1,000 mls @ 75 mls/hr IV ASDIRECTED [facility] [place] Last Admin: 08/12/19 09:24 Dose: 75 mls/hr Sodium Chloride (Normal Saline) Confirm Administered Dose 1,000 mls @ as directed .ROUTE .STK-MED ONE Stop: 08/11/19 17:34 Last Admin: 08/11/19 17:43 Dose: Not Given Dextrose/Sodium Chloride (Dextrose 5%-Normal Saline) 1,000 mls @ 100 mls/hr IV ASDIRECTED [facility] Last Infusion: 08/13/19 12:35 Dose: 50 mls/hr Dextrose/Sodium Chloride (Dextrose 5%-Normal Saline) 1,000 mls @ 50 mls/hr IV ASDIRECTED [facility] Dextrose/Sodium Chloride (Dextrose 5%-Normal Saline) 1,000 mls @ 125 mls/hr IV ASDIRECTED [facility] Last Admin: 08/16/19 01:04 Dose: 125 mls/hr Lidocaine HCl (Xylocaine-Mpf 1%) Confirm Administered Dose 4 mls @ as directed .ROUTE .[facility]-MED ONE Stop: 08/15/19 14:43 Lactated Ringer's (Ringers, Lactated) Confirm Administered Dose 1,000 mls @ as directed .ROUTE .[facility]-MED ONE Stop: 08/15/19 15:18 Lactated Ringer's (Ringers, Lactated) Confirm Administered Dose 1,000 mls @ as directed .ROUTE .ST-MED ONE Stop: 08/15/19 15:18 Phenylephrine HCl 1 mg/ Sodium (Chloride) 10.1 mls @ 1 mls/sec IV TITRATE [facility]; Protocol Stop: 08/15/19 18:00 Lactated Ringer's (Ringers, Lactated) Confirm Administered Dose 1,000 mls @ as directed .ROUTE .STK-MED ONE Stop: 08/15/19 15:57 Lactated Ringer's (Ringers, Lactated) Confirm Administered Dose 1,000 mls @ as directed .ROUTE .ST-MED ONE Stop: 08/15/19 18:09 Magnesium Sulfate 2 gm/ Premix 50 mls @ 25 mls/hr IV ONETIME ONE Stop: 08/16/19 10:10 Last Admin: 08/16/19 08:45 Dose: Not Given Magnesium Sulfate 4 gm/ Premix 50 mls @ 12.5 mls/hr IV ONETIME ONE Stop: 08/16/19 12:28 Last Admin: 08/16/19 08:46 Dose: 12.5 mls/hr Dextrose/Sodium Chloride (Dextrose 5%-Normal Saline) 1,000 mls @ 100 mls/hr IV ASDIRECTED [facility] Stop: 08/16/19 13:00 Last Infusion: 08/16/19 12:20 Dose: 20 mls/hr Dextrose/Sodium Chloride (Dextrose 5%-Normal Saline) 1,000 mls @ 20 mls/hr IV ASDIRECTED [facility] [place] Last Admin: 08/17/19 06:33 Dose: 20 mls/hr Multivitamins/Minerals 10 ml/Chromium/Copper/Manganese/Zinc 1 ml/ Amino Ac/ Electrol/Dextrose/Calcium 1,011 mls @ 45 mls/hr IV ONETIME ONE Stop: 08/17/19 11:27 Last Admin: 08/16/19 13:15 Dose: 45 mls/hr Adjust Tpn Rate 720 mls @ 60 mls/hr .XX ONETIME ONE Stop: 08/17/19 12:59 Last Admin: 08/17/19 00:56 Dose: 60 mls/hr Multivitamins/Minerals 10 ml/Chromium/Copper/Manganese/Zinc 1 ml/ Amino Ac/ Electrol/Dextrose/Calcium 1,011 mls @ 60 mls/hr IV TITRATE [facility] [place] Stop: 08/18/19 01:50 Last Admin: 08/17/19 08:52 Dose: 60 mls/hr Adjust Tpn Rate 720 mls @ 75 mls/hr .XX ONETIME ONE Stop: 08/17/19 22:35 Last Admin: 08/17/19 14:13 Dose: Not Given Sodium Chloride (Normal Saline) 1,000 mls @ 50 mls/hr IV ASDIRECTED [facility] [place] Last Admin: 08/21/19 17:31 Dose: 50 mls/hr Multivitamins/Minerals 10 ml/Chromium/Copper/Manganese/Zinc 1 ml/ Amino Ac/ Electrol/Dextrose/Calcium 1,011 mls @ 75 mls/hr IV TITRATE [facility] [place] Stop: 08/19/19 01:29 Last Admin: 08/18/19 14:35 Dose: 75 mls/hr Magnesium Sulfate/Dextrose (Magnesium Sulfate In D5w 100 Premix) 1 gm in 100 mls @ 100 mls/hr IV ONETIME ONE Stop: 08/19/19 09:59 Last Admin: 08/19/19 09:42 Dose: 100 mls/hr Multivitamins/Minerals 10 ml/Chromium/Copper/Manganese/Zinc 1 ml/ Amino Ac/ Electrol/Dextrose/Calcium 1,011 mls @ 75 mls/hr IV TITRATE [facility] [place] Stop: 08/20/19 07:29 Last Admin: 08/19/19 17:54 Dose: 75 mls/hr Multivitamins/Minerals 10 ml/Chromium/Copper/Manganese/Zinc 1 ml/ Amino Ac/ Electrol/Dextrose/Calcium 1,011 mls @ 75 mls/hr IV ONETIME ONE Stop: 08/20/19 21:43 Last Admin: 08/20/19 08:26 Dose: 75 mls/hr Magnesium Sulfate 2 gm/ Premix 50 mls @ 25 mls/hr IV ONETIME ONE Stop: 08/20/19 12:59 Last Admin: 08/20/19 11:27 Dose: 25 mls/hr Multivitamins/Minerals 10 ml/Chromium/Copper/Manganese/Zinc 1 ml/ Amino Ac/ Electrol/Dextrose/Calcium 1,011 mls @ 75 mls/hr IV ONETIME ONE Stop: 08/22/19 00:58 Last Admin: 08/21/19 11:51 Dose: 75 mls/hr Multivitamins/Minerals 10 ml/Chromium/Copper/Manganese/Zinc 1 ml/ Amino Ac/ Electrol/Dextrose/Calcium 1,011 mls @ 75 mls/hr IV ONETIME [facility] [place] Stop: 08/23/19 04:29 Last Admin: 08/22/19 15:01 Dose: 75 mls/hr Magnesium Sulfate 4 gm/ Premix 50 mls @ 12.5 mls/hr IV ONETIME ONE Stop: 08/22/19 12:59 Last Admin: 08/22/19 09:29 Dose: 12.5 mls/hr Influenza Virus Vaccine (Pharmacy To Dose - Influenza Vaccine) 1 each IM ONETIME ONE Stop: 08/07/19 22:46 Influenza Virus Vaccine (Fluzone High-Dose Syringe) 180 mcg IM .ONCE ONE Stop: 08/08/19 10:01 Iopamidol (Isovue-300 (61%)) 100 ml IVPUSH ONETIME ONE Stop: 08/11/19 16:42 Last Admin: 08/11/19 16:44 Dose: 100 ml Ipratropium [place] (Atrovent) 0.5 mg NEB Q4HRRT [facility] [place] Last Admin: 08/11/19 13:29 Dose: 0.5 mg Ketamine HCl (Ketalar) Confirm Administered Dose 500 mg .ROUTE .STK-MED ONE Stop: 08/15/19 15:35 Ketorolac Tromethamine (Toradol) Confirm Administered Dose 30 mg .ROUTE .STK- MED ONE Stop: 08/15/19 18:40 Ketorolac Tromethamine (Toradol) 15 mg IVPUSH Q6H PRN PRN Reason: Pain Stop: 08/18/19 00:31 Last Admin: 08/17/19 20:26 Dose: 15 mg Lidocaine HCl (Xylocaine 1%) Confirm Administered Dose 50 ml .ROUTE .STK-MED ONE Stop: 08/15/19 07:11 Last Admin: 08/15/19 15:09 Dose: 4.5 ml Lidocaine HCl (Xylocaine 1%) Confirm Administered Dose 50 ml .ROUTE .STK-MED ONE Stop: 08/15/19 11:28 Lidocaine HCl (Xylocaine 1%) 20 ml INJECT ONETIME ONE Stop: 08/18/19 17:01 Last Admin: 08/18/19 17:49 Dose: 10 ml Lorazepam (Ativan) 1 mg IVPUSH Q2H PRN PRN Reason: Anxiety Last Admin: 08/21/19 09:22 Dose: 1 mg Magnesium Hydroxide (Milk Of Magnesia) 30 ml PO ONETIME ONE Stop: 08/14/19 07:43 Last Admin: 08/14/19 08:58 Dose: 30 ml Methadone HCl (Methadone) 5 mg PO BID [facility] Last Admin: 08/15/19 21:37 Dose: Not Given Midazolam HCl (Versed 1 Mg/Ml) Confirm Administered Dose 2 mg .ROUTE .STK-MED ONE Stop: 08/15/19 12:15 Miscellaneous Medication (Phenylephrine 1 Mg/10 Ml-Ns) Confirm Administered Dose 1 mg IV .STK-MED ONE Stop: 08/15/19 15:05 Miscellaneous Medication (Phenylephrine 1 Mg/10 Ml-Ns) Confirm Administered Dose 1 mg IV .STK-MED ONE Stop: 08/15/19 16:18 Miscellaneous Medication (Phenylephrine 1 Mg/10 Ml-Ns) Confirm Administered Dose 1 mg IV .STK-MED ONE Stop: 08/15/19 17:47 Miscellaneous Medication (Phenylephrine 1 Mg/10 Ml-Ns) Confirm Administered Dose 1 mg IV .STK-MED ONE Stop: 08/15/19 18:34 Neostigmine Methylsulfate (Neostigmine Methylsulfate) Confirm Administered Dose 5 mg .ROUTE .STK-MED ONE Stop: 08/15/19 16:12 Nicotine (Habitrol) 21 mg TRDERM DAILY [facility] [place] Last Admin: 08/20/19 08:26 Dose: 21 mg Benztropine 2mg/2ml (Vial) 0 each IVPUSH BEDTIME [facility] [place] Last Admin: 08/21/19 20:15 Dose: 1 each Ondansetron HCl (Zofran) 4 mg IVPUSH ONETIME ONE Stop: 08/07/19 16:51 Last Admin: 08/07/19 17:20 Dose: 4 mg Ondansetron HCl (Zofran) 4 mg IVPUSH ONETIME ONE Stop: 08/07/19 19:12 Last Admin: 08/07/19 19:51 Dose: 4 mg Ondansetron HCl (Zofran Odt) 4 mg PO Q6H PRN PRN Reason: nausea, able to take PO Last Admin: 08/13/19 09:44 Dose: 4 mg Ondansetron HCl (Zofran) 4 mg IV Q6H [facility] [place] Last Admin: 08/08/19 06:03 Dose: Not Given Ondansetron HCl (Zofran) 4 mg IV Q6H [facility] [place] Last Admin: 08/08/19 12:40 Dose: 4 mg Ondansetron HCl (Zofran) 4 mg IVPUSH Q8H PRN PRN Reason: Nausea/Vomiting Last Admin: 08/13/19 15:04 Dose: 4 mg Ondansetron HCl (Zofran) 4 mg IVPUSH ONETIME PRN PRN Reason: Nausea/Vomiting Stop: 08/15/19 18:00 Ondansetron HCl (Zofran) Confirm Administered Dose 4 mg .ROUTE .STK-MED ONE Stop: 08/15/19 16:13 Oseltamivir Phosphate (Tamiflu) 75 mg PO BID [facility] [place] Stop: 08/12/19 09:01 Last Admin: 08/12/19 09:24 Dose: 75 mg Propofol (Diprivan 20 Ml) Confirm Administered Dose 200 mg .ROUTE .STK-MED ONE Stop: 08/15/19 12:15 Risperidone (Risperidal) 2 mg PO BEDTIME [facility] [place] Last Admin: 08/15/19 21:36 Dose: Not Given Risperidone (Risperidal) 1 mg PO DAILY [facility] [place] Last Admin: 08/15/19 10:49 Dose: Not Given Rocuronium [place] (Zemuron) Confirm Administered Dose 50 mg .ROUTE .STK-MED ONE Stop: 08/15/19 12:14 Rocuronium [place] (Zemuron) Confirm Administered Dose 50 mg .ROUTE .STK-MED ONE Stop: 08/15/19 16:10 Sodium Chloride (Saline Flush) 10 ml FLUSH ONETIME ONE Stop: 08/11/19 16:42 Last Admin: 08/11/19 16:46 Dose: 10 ml Trazodone HCl (Trazodone) 50 mg PO BEDTIME [facility] [place] Last Admin: 08/15/19 21:50 Dose: Not Given - Exam Wound/Incisions: Healing Well General: Alert, Oriented, Cooperative Lungs: Clear to Auscultation, Normal Respiratory Effort Cardiovascular: Regular Rate, Regular Rhythm, No Murmurs GI/Abdominal Exam: Soft, Non-Tender, No Distention, No Mass, Other (incision is healing well) Extremities: Normal Inspection Skin: Warm, Dry, Intact Sepsis Event Note - Evaluation Sepsis Screening Result: No Definite Risk - Focused Exam Vital Signs: Vital Signs Temp Pulse Resp BP Pulse Ox 08/23/19 02:51 97.2 F 104 H 18 104/57 L 92 L 08/22/19 21:08 97.5 F 96 18 114/69 92 L Date Exam was Performed: 08/23/19 Time Exam was Performed: 07:48 - Problem List Review Problem List Initiated/Reviewed/Updated: No - My Orders Last 24 Hours: Active Orders 24 hr Category Date Time Status Full Liquid Diet [DIET] Diet 08/22/19 Breakfast Active Benztropine [Cogentin] Med 08/22/19 21:00 Active 1 mg PO BEDTIME Methadone Med 08/22/19 21:00 Active 5 mg PO BID Pantoprazole [ProTONIX] Med 08/22/19 21:00 Active 40 mg PO BEDTIME risperiDONE [RisperiDAL] Med 08/23/19 09:00 Active 1 mg PO DAILY risperiDONE [RisperiDAL] Med 08/22/19 21:00 Active 2 mg PO BEDTIME traZODone Med 08/22/19 21:00 Active 50 mg PO BEDTIME Medication Orders Acetaminophen (Tylenol) 650 mg PO Q4H PRN PRN Reason: Pain (Mild 1-3)/fever Last Admin: 08/22/19 13:41 Dose: 650 mg Admin: 08/13/19 09:43 Dose: 650 mg Albuterol/Ipratropium (Duoneb 3.0-0.5 Mg/3 Ml) 3 ml NEB QIDRT PRN PRN Reason: SOB/wheezing Benztropine Mesylate (Cogentin) 1 mg PO BEDTIME [facility] Last Admin: 08/22/19 21:11 Dose: 1 mg Heparin Sodium (Porcine) (Heparin Sodium) 5,000 units SUBCUT Q8H [facility] Last Admin: 08/23/19 00:57 Dose: 5,000 units Admin: 08/22/19 16:33 Dose: 5,000 units Admin: 08/22/19 09:28 Dose: 5,000 units Admin: 08/22/19 01:36 Dose: 5,000 units Admin: 08/21/19 17:32 Dose: 5,000 units Admin: 08/21/19 08:23 Dose: 5,000 units Admin: 08/21/19 01:32 Dose: Admin: 08/20/19 23:41 Dose: 5,000 units Admin: 08/20/19 17:22 Dose: Not Given Admin: 08/20/19 08:32 Dose: 5,000 units Admin: 08/20/19 00:14 Dose: 5,000 units Admin: 08/19/19 16:47 Dose: Admin: 08/19/19 08:32 Dose: 5,000 units Admin: 08/19/19 00:01 Dose: 5,000 units Admin: 08/18/19 16:17 Dose: Admin: 08/18/19 08:11 Dose: 5,000 units Hydromorphone HCl (Dilaudid) 1 mg IVPUSH Q3H PRN PRN Reason: Pain Last Admin: 08/23/19 06:57 Dose: 1 mg Admin: 08/22/19 22:05 Dose: 1 mg Admin: 08/22/19 18:12 Dose: 1 mg Admin: 08/22/19 14:29 Dose: 1 mg Admin: 08/22/19 09:30 Dose: 1 mg Admin: 08/22/19 04:28 Dose: 1 mg Admin: 08/21/19 23:28 Dose: 1 mg Admin: 08/21/19 15:19 Dose: 1 mg Admin: 08/21/19 08:18 Dose: 1 mg Admin: 08/21/19 04:57 Dose: 1 mg Admin: 08/20/19 23:40 Dose: 1 mg Admin: 08/20/19 18:46 Dose: 1 mg Admin: 08/20/19 15:53 Dose: 1 mg Admin: 08/20/19 08:55 Dose: 1 mg Admin: 08/20/19 05:57 Dose: 1 mg Admin: 08/20/19 01:53 Dose: 1 mg Admin: 08/19/19 20:48 Dose: 1 mg Admin: 08/19/19 14:05 Dose: 1 mg Admin: 08/19/19 09:42 Dose: 1 mg Admin: 08/19/19 06:05 Dose: 1 mg Admin: 08/19/19 01:26 Dose: 1 mg Admin: 08/18/19 17:58 Dose: 1 mg Admin: 08/18/19 11:51 Dose: 1 mg Admin: 08/18/19 09:17 Dose: 1 mg Admin: 08/17/19 14:49 Dose: 1 mg Admin: 08/16/19 18:55 Dose: 1 mg Admin: 08/16/19 15:10 Dose: 1 mg Admin: 08/16/19 08:15 Dose: 1 mg Admin: 08/16/19 00:57 Dose: 1 mg Admin: 08/15/19 21:57 Dose: 1 mg Fat Emulsion Intravenous (Intralipid 20%) 500 mls @ 62.5 mls/hr IV MoWeFr [facility] [place] Last Admin: 08/22/19 13:02 Dose: 62.5 mls/hr Infusion: 08/19/19 20:17 Dose: 62.5 mls/hr Admin: 08/19/19 12:17 Dose: 62.5 mls/hr Infusion: 08/17/19 20:30 Dose: 62.5 mls/hr Admin: 08/17/19 12:30 Dose: 62.5 mls/hr Amino Ac/Electrol/Dextrose/Calcium (Clinimix E 10/11) 1,000 mls @ 75 mls/hr IV TITRATE [facility] Last Admin: 08/23/19 05:13 Dose: 75 mls/hr Infusion: 08/22/19 14:51 Dose: 75 mls/hr Admin: 08/22/19 01:31 Dose: 75 mls/hr Infusion: 08/21/19 11:18 Dose: 75 mls/hr Admin: 08/20/19 21:58 Dose: 75 mls/hr Infusion: 08/19/19 17:33 Dose: 75 mls/hr Admin: 08/19/19 04:13 Dose: 75 mls/hr Infusion: 08/18/19 13:31 Dose: 75 mls/hr Admin: 08/18/19 00:11 Dose: 75 mls/hr Dextrose/Water (Dextrose 10% In Water) 500 mls @ 75 mls/hr IV ASDIRECTED [facility] [place] Last Admin: 08/20/19 07:37 Dose: 75 mls/hr Lorazepam (Ativan) 0.5 mg IVPUSH Q2H PRN PRN Reason: Anxiety Last Admin: 08/22/19 16:32 Dose: 0.5 mg Admin: 08/21/19 23:33 Dose: 0.5 mg Admin: 08/21/19 19:41 Dose: 0.5 mg Methadone HCl (Methadone) 5 mg PO BID [facility] [place] Last Admin: 08/22/19 21:12 Dose: 5 mg Miscellaneous Information (Remove Patch) 1 ea TRDERM DAILY [facility] [place] Last Admin: 08/22/19 09:39 Dose: 1 ea Admin: 08/21/19 08:50 Dose: Admin: 08/20/19 08:36 Dose: 1 ea Admin: 08/19/19 08:35 Dose: 1 ea Admin: 08/18/19 11:31 Dose: 1 ea Nicotine (Habitrol) 14 mg TRDERM DAILY [facility] [place] Last Admin: 08/22/19 09:28 Dose: 14 mg Admin: 08/21/19 08:20 Dose: 14 mg Ondansetron HCl (Zofran) 4 mg IVPUSH Q4H PRN PRN Reason: Nausea/Vomiting Last Admin: 08/23/19 02:46 Dose: 4 mg Admin: 08/22/19 19:44 Dose: 4 mg Admin: 08/18/19 12:30 Dose: 4 mg Admin: 08/18/19 05:33 Dose: 4 mg Admin: 08/18/19 00:20 Dose: 4 mg Admin: 08/17/19 15:51 Dose: 4 mg Admin: 08/13/19 21:01 Dose: 4 mg Pantoprazole Sodium (Protonix) 40 mg PO BEDTIME [facility] Last Admin: 08/22/19 21:12 Dose: 40 mg Pharmacy Consult (Consult To Pharmacy) 0 each .XX DAILY PRN PRN Reason: TPN MONITORING Risperidone (Risperidal) 1 mg PO DAILY EDMOND Risperidone (Risperidal) 2 mg PO BEDTIME EDMOND Last Admin: 08/22/19 21:11 Dose: 2 mg Sodium Chloride (Saline Flush) 10 ml FLUSH ASDIRECTED PRN PRN Reason: Keep Vein Open Last Admin: 08/11/19 16:44 Dose: 10 ml Admin: 08/11/19 16:43 Dose: 10 ml Admin: 08/07/19 17:21 Dose: 10 ml Trazodone HCl (Trazodone) 50 mg PO BEDTIME EDMOND Last Admin: 08/22/19 21:12 Dose: 50 mg - Assessment Assessment (Free Text/Narrative):: Patient has pSBO, now s/p ex lap, SANTANA, excision of RUQ mass. Has mild nausea, no vomiting last night. Tolerating diet. Ambulating - Plan Plan (Free Text/Narrative):: - Drains removed - Start soft diet today - continue TPN today, of tolerates diet today, will dc TPN tomorrow - Encourage ambulation - All PO meds - Anticipate dc tomorrow to home with home health to check incisions/drain sites and make sure he is doing well since he lives alone. - He is to follow up with me in 7 days for paul removal
[2019-08-23] MEDS: Nicotine 14 MG/24 Hr Patch TRDERM SCH (08:37)
[2019-08-23] MEDS: Methadone 5 MG Tab PO SCH ×2 (08:38→20:43)
[2019-08-23] MEDS: risperiDONE 1 MG Tab PO SCH ×2 (08:40→20:46)
--- NOTE | 2019-08-23 10:54 | PCM.SN ---
- Free Text/Narrative Note: This is an addendum to the op note. The size of the right upper quadrant cystic mass was 8 cm x 6 cm.
--- NOTE | 2019-08-23 13:15 | PCM.CONSN ---
- General Info Date of Service: 08/23/19 Admission Dx/Problem (Free Text): Admission Diagnosis/Problem Admission Diagnosis/Problem Pneumonia involving left lung Functional Status: Reports: Pain Controlled, Tolerating Diet (Soft ), Ambulating , Urinating, Incentive Spirometry, Other (acapella). Denies: New Symptoms - Review of Systems General: Reports: Weakness (improving ). Denies: Fever, Fatigue, Malaise, Chills HEENT: Denies: Headaches, Sore Throat Pulmonary: Denies: Shortness of Breath, Cough, Sputum, Wheezing Cardiovascular: Denies: Chest Pain, Palpitations, Dyspnea on Exertion Gastrointestinal: Reports: Abdominal Pain (mildly tender, improving ). Denies: Constipation, Decreased Appetite, Diarrhea, Nausea, Vomiting Genitourinary: Reports: No Symptoms, Dysuria. Denies: Pain Musculoskeletal: Reports: No Symptoms Skin: Reports: No Symptoms Neurological: Reports: No Symptoms, Change in Speech - Patient Data Vitals - Most Recent: Last Vital Signs Temp 98.2 F 08/23/19 12:34 Pulse 95 08/23/19 12:34 Resp 16 08/23/19 12:34 BP 105/48 L 08/23/19 12:34 Pulse Ox 94 L 08/23/19 12:34 Orthostatic Blood Pressure [ 109/60 Standing] Orthostatic Blood Pressure [ 120/69 Sitting] Orthostatic Blood Pressure [ 120/79 Supine] Weight - Most Recent: 131 lb 14.4 oz I&O - Last 24 Hours: Intake & Output 08/22/19 08/23/19 08/23/19 22:59 06:59 14:59 Intake Total 2313 1295 120 Output Total 2387 1450 Balance -72 -155 120 Lab Results Last 24 Hours: Laboratory Results - last 24 hr 08/22/19 08/23/19 08/23/19 Range/Units 18:07 00:34 05:25 Sodium 137 (136-145) mEq/L Potassium 4.4 (3.5-5.1) mEq/L Chloride 105 (98-107) mEq/L Carbon Dioxide 27 (21-32) mEq/L Anion Gap 9.4 (5-15) BUN 15 (7-18) mg/dL Creatinine 0.7 (0.7-1.3) mg/dL Est Cr Clr Drug Dosing 83.10 mL/min Estimated GFR (MDRD) > 60 (>60) mL/min BUN/Creatinine Ratio 21.4 H (14-18) Glucose 113 (80-115) mg/dL POC Glucose 147 H 131 H (80-115) mg/dL Calcium 7.7 L (8.5-10.1) mg/dL Phosphorus 4.0 (2.6-4.7) mg/dL Magnesium 2.0 (1.8-2.4) mg/dl 08/23/19 Range/Units 05:28 Sodium (136-145) mEq/L Potassium (3.5-5.1) mEq/L Chloride (98-107) mEq/L Carbon Dioxide (21-32) mEq/L Anion Gap (5-15) BUN (7-18) mg/dL Creatinine (0.7-1.3) mg/dL Est Cr Clr Drug Dosing mL/min Estimated GFR (MDRD) (>60) mL/min BUN/Creatinine Ratio (14-18) Glucose (80-115) mg/dL POC Glucose 101 (80-115) mg/dL Calcium (8.5-10.1) mg/dL Phosphorus (2.6-4.7) mg/dL Magnesium (1.8-2.4) mg/dl Med Orders - Current: Current Medications Acetaminophen (Tylenol) 650 mg PO Q4H PRN PRN Reason: Pain (Mild 1-3)/fever Last Admin: 08/22/19 13:41 Dose: 650 mg Hydrocodone Bitart/Acetaminophen (Pattison 325-5 Mg) 1 tab PO Q4H PRN PRN Reason: Pain (moderate 4-6) Albuterol/Ipratropium (Duoneb 3.0-0.5 Mg/3 Ml) 3 ml NEB QIDRT PRN PRN Reason: SOB/wheezing Benztropine Mesylate (Cogentin) 1 mg PO BEDTIME [facility] Last Admin: 08/22/19 21:11 Dose: 1 mg Heparin Sodium (Porcine) (Heparin Sodium) 5,000 units SUBCUT Q8H [facility] Last Admin: 08/23/19 08:40 Dose: 5,000 units Hydromorphone HCl (Dilaudid) 1 mg IVPUSH Q3H PRN PRN Reason: Pain Last Admin: 08/23/19 06:57 Dose: 1 mg Fat Emulsion Intravenous (Intralipid 20%) 500 mls @ 62.5 mls/hr IV MoWeFr [facility] Last Admin: 08/22/19 13:02 Dose: 62.5 mls/hr Amino Ac/Electrol/Dextrose/Calcium (Clinimix E 10/11) 1,000 mls @ 75 mls/hr IV TITRATE [facility] Last Admin: 08/23/19 05:13 Dose: 75 mls/hr Dextrose/Water (Dextrose 10% In Water) 500 mls @ 75 mls/hr IV ASDIRECTED [facility] Last Admin: 08/20/19 07:37 Dose: 75 mls/hr Lorazepam (Ativan) 0.5 mg IVPUSH Q2H PRN PRN Reason: Anxiety Last Admin: 08/22/19 16:32 Dose: 0.5 mg Methadone HCl (Methadone) 5 mg PO BID [facility] Last Admin: 08/23/19 08:38 Dose: 5 mg Miscellaneous Information (Remove Patch) 1 ea TRDERM DAILY [facility] Last Admin: 08/23/19 08:42 Dose: 1 ea Nicotine (Habitrol) 14 mg TRDERM DAILY [facility] Last Admin: 08/23/19 08:37 Dose: 14 mg Ondansetron HCl (Zofran) 4 mg IVPUSH Q4H PRN PRN Reason: Nausea/Vomiting Last Admin: 08/23/19 02:46 Dose: 4 mg Pantoprazole Sodium (Protonix) 40 mg PO BEDTIME [facility] Last Admin: 08/22/19 21:12 Dose: 40 mg Pharmacy Consult (Consult To Pharmacy) 0 each .XX DAILY PRN PRN Reason: TPN MONITORING Risperidone (Risperidal) 1 mg PO DAILY [facility] Last Admin: 08/23/19 08:40 Dose: 1 mg Risperidone (Risperidal) 2 mg PO BEDTIME [facility] Last Admin: 08/22/19 21:11 Dose: 2 mg Sodium Chloride (Saline Flush) 10 ml FLUSH ASDIRECTED PRN PRN Reason: Keep Vein Open Last Admin: 08/11/19 16:44 Dose: 10 ml Trazodone HCl (Trazodone) 50 mg PO BEDTIME [facility] Last Admin: 08/22/19 21:12 Dose: 50 mg Discontinued Medications Albuterol (Proventil Neb Soln) 2.5 mg NEB ONETIME PRN PRN Reason: bronchodilation Stop: 08/15/19 18:00 Albuterol/Ipratropium (Duoneb 3.0-0.5 Mg/3 Ml) 3 ml NEB QIDRT [facility] Last Admin: 08/17/19 09:10 Dose: 3 ml Azithromycin (Zithromax) 250 mg PO BEDTIME [facility] Last Admin: 08/11/19 21:06 Dose: 250 mg Benzonatate (Tessalon Perles) 100 mg PO BID [facility] Last Admin: 08/15/19 21:36 Dose: Not Given Benztropine Mesylate (Cogentin) 1 mg PO BEDTIME [facility] Last Admin: 08/15/19 21:37 Dose: Not Given Benztropine Mesylate (Cogentin) 1 mg IVPUSH BEDTIME [facility] Benztropine Mesylate (Benztropine) 1 mg IVPUSH BEDTIME [facility] Stop: 08/21/19 21:01 Last Admin: 08/22/19 20:19 Dose: Not Given Cefazolin Sodium (Ancef) Confirm Administered Dose 2 gm .ROUTE .STK-MED ONE Stop: 08/15/19 15:23 Cefazolin Sodium (Ancef) Confirm Administered Dose 2 gm .ROUTE .STK-MED ONE Stop: 08/15/19 18:13 Cefdinir (Omnicef) 300 mg PO BID [facility] Last Admin: 08/14/19 08:58 Dose: 300 mg Ceftriaxone Sodium (Rocephin) Confirm Administered Dose 2 gm IV .STK-MED ONE Stop: 08/07/19 19:45 Last Admin: 08/07/19 19:51 Dose: Not Given Diatrizoate Meglum/Diatrizoate Sod (Gastrografin 37%) 90 ml PO ONETIME ONE Stop: 08/11/19 16:42 Last Admin: 08/11/19 16:43 Dose: 90 ml Ephedrine Sulfate (Ephedrine Sulfate) 5 mg IVPUSH ASDIRECTED PRN PRN Reason: Hypotension Stop: 08/15/19 18:00 Famotidine (Pepcid) 20 mg IVPUSH BEDTIME [facility] Last Admin: 08/21/19 20:09 Dose: 20 mg Famotidine (Pepcid) 20 mg IVPUSH ONETIME ONE Stop: 08/20/19 10:01 Last Admin: 08/20/19 09:59 Dose: 20 mg Fentanyl (Sublimaze) Confirm Administered Dose 250 mcg .ROUTE .STK-MED ONE Stop: 08/15/19 12:16 Fentanyl (Sublimaze) 50 mcg IVPUSH Q5M PRN PRN Reason: Pain Stop: 08/15/19 18:00 Fentanyl (Sublimaze) Confirm Administered Dose 100 mcg .ROUTE .STK-MED ONE Stop: 08/15/19 17:11 Glycopyrrolate () Confirm Administered Dose 1 mg .ROUTE .STK-MED ONE Stop: 08/15/19 16:12 Guaifenesin (Mucinex) 600 mg PO BID [facility] Last Admin: 08/15/19 21:37 Dose: Not Given Guaifenesin (Mucinex) 600 mg PO BID [facility] Last Admin: 08/08/19 12:51 Dose: Not Given Haloperidol Lactate (Haldol) 5 mg IVPUSH BEDTIME [facility] Last Admin: 08/15/19 21:51 Dose: 5 mg Haloperidol Lactate (Haldol) 5 mg IV ONETIME PRN PRN Reason: Other Stop: 08/16/19 08:00 Haloperidol Lactate (Haldol) 5 mg IVPUSH Q8H [facility] Last Admin: 08/16/19 09:59 Dose: Not Given Haloperidol Lactate (Haldol) 2 mg IVPUSH ONETIME ONE Stop: 08/16/19 09:01 Last Admin: 08/16/19 09:57 Dose: 2 mg Haloperidol Lactate (Haldol) 5 mg IVPUSH BEDTIME [facility] Last Admin: 08/21/19 20:11 Dose: 5 mg Haloperidol Lactate (Haldol) 2 mg IVPUSH 0600,1400 [facility] Last Admin: 08/22/19 06:09 Dose: 2 mg Hydromorphone HCl (Dilaudid) Confirm Administered Dose 0.5 mg .ROUTE .STK-MED ONE Stop: 08/15/19 15:22 Hydromorphone HCl (Dilaudid) 0.5 mg IVPUSH Q15M PRN PRN Reason: Pain (severe 7-10) Stop: 08/15/19 18:00 Hydromorphone HCl (Dilaudid) Confirm Administered Dose 0.5 mg .ROUTE .STK-MED ONE Stop: 08/15/19 16:18 Hydromorphone HCl (Dilaudid) Confirm Administered Dose 0.5 mg .ROUTE .STK-MED ONE Stop: 08/15/19 18:43 Hydromorphone HCl (Dilaudid) 0.5 mg IVPUSH ONETIME ONE Stop: 08/15/19 20:51 Last Admin: 08/15/19 20:59 Dose: 0.5 mg Hydromorphone HCl (Dilaudid) Confirm Administered Dose 0.5 mg .ROUTE .STK-MED ONE Stop: 08/15/19 21:00 Last Admin: 08/15/19 21:34 Dose: Not Given Hydromorphone HCl (Dilaudid) 0.5 mg IVPUSH Q3H PRN PRN Reason: Abdominal Pain Sodium Chloride (Normal Saline) 1,000 mls @ 150 mls/hr IV ASDIRECTED [facility] Last Admin: 08/08/19 06:02 Dose: 150 mls/hr Ceftriaxone Sodium 2 gm/ (Sodium Chloride) 100 mls @ 200 mls/hr IV ONETIME ONE Stop: 08/07/19 20:00 Last Admin: 08/07/19 19:47 Dose: Not Given Magnesium Sulfate 2 gm/ Premix 50 mls @ 25 mls/hr IV ONETIME ONE Stop: 08/07/19 21:42 Last Admin: 08/07/19 20:24 Dose: 25 mls/hr Ceftriaxone Sodium 2 gm/ (Sodium Chloride) 100 mls @ 200 mls/hr IV Q24H [facility] Stop: 08/07/19 20:15 Last Admin: 08/07/19 19:49 Dose: 200 mls/hr Sodium Chloride (Normal Saline) Confirm Administered Dose 100 mls @ as directed .ROUTE .STK-MED ONE Stop: 08/07/19 19:45 Last Admin: 08/07/19 19:51 Dose: Not Given Azithromycin 500 mg/ Sodium (Chloride) 250 mls @ 250 mls/hr IV Q24H [facility] Last Admin: 08/10/19 22:08 Dose: 250 mls/hr Ceftriaxone Sodium 2 gm/ (Sodium Chloride) 100 mls @ 200 mls/hr IV Q24H [facility] Last Admin: 08/10/19 21:25 Dose: 200 mls/hr Sodium Chloride (Normal Saline) 1,000 mls @ 75 mls/hr IV ASDIRECTED [facility] Sodium Phosphate 30 mmole/ (Sodium Chloride) 260 mls @ 130 mls/hr IV Q2H [facility] Stop: 08/10/19 15:59 Last Admin: 08/10/19 15:12 Dose: 130 mls/hr Magnesium Sulfate 2 gm/ Premix 50 mls @ 25 mls/hr IV ONETIME ONE Stop: 08/11/19 11:08 Last Admin: 08/11/19 09:38 Dose: 25 mls/hr Sodium Chloride (Normal Saline) 1,000 mls @ 75 mls/hr IV ASDIRECTED [facility] Last Admin: 08/12/19 09:24 Dose: 75 mls/hr Sodium Chloride (Normal Saline) Confirm Administered Dose 1,000 mls @ as directed .ROUTE .[facility]-MED ONE Stop: 08/11/19 17:34 Last Admin: 08/11/19 17:43 Dose: Not Given Dextrose/Sodium Chloride (Dextrose 5%-Normal Saline) 1,000 mls @ 100 mls/hr IV ASDIRECTED [facility] Last Infusion: 08/13/19 12:35 Dose: 50 mls/hr Dextrose/Sodium Chloride (Dextrose 5%-Normal Saline) 1,000 mls @ 50 mls/hr IV ASDIRECTED [facility] Dextrose/Sodium Chloride (Dextrose 5%-Normal Saline) 1,000 mls @ 125 mls/hr IV ASDIRECTED [facility] Last Admin: 08/16/19 01:04 Dose: 125 mls/hr Lidocaine HCl (Xylocaine-Mpf 1%) Confirm Administered Dose 4 mls @ as directed .ROUTE .[facility]-MED ONE Stop: 08/15/19 14:43 Lactated Ringer's (Ringers, Lactated) Confirm Administered Dose 1,000 mls @ as directed .ROUTE .[facility]-MED ONE Stop: 08/15/19 15:18 Lactated Ringer's (Ringers, Lactated) Confirm Administered Dose 1,000 mls @ as directed .ROUTE .[facility]-MED ONE Stop: 08/15/19 15:18 Phenylephrine HCl 1 mg/ Sodium (Chloride) 10.1 mls @ 1 mls/sec IV TITRATE [facility]; Protocol Stop: 08/15/19 18:00 Lactated Ringer's (Ringers, Lactated) Confirm Administered Dose 1,000 mls @ as directed .ROUTE .[facility]-MED ONE Stop: 08/15/19 15:57 Lactated Ringer's (Ringers, Lactated) Confirm Administered Dose 1,000 mls @ as directed .ROUTE .STK-MED ONE Stop: 08/15/19 18:09 Magnesium Sulfate 2 gm/ Premix 50 mls @ 25 mls/hr IV ONETIME ONE Stop: 08/16/19 10:10 Last Admin: 08/16/19 08:45 Dose: Not Given Magnesium Sulfate 4 gm/ Premix 50 mls @ 12.5 mls/hr IV ONETIME ONE Stop: 08/16/19 12:28 Last Admin: 08/16/19 08:46 Dose: 12.5 mls/hr Dextrose/Sodium Chloride (Dextrose 5%-Normal Saline) 1,000 mls @ 100 mls/hr IV ASDIRECTED [facility] Stop: 08/16/19 13:00 Last Infusion: 08/16/19 12:20 Dose: 20 mls/hr Dextrose/Sodium Chloride (Dextrose 5%-Normal Saline) 1,000 mls @ 20 mls/hr IV ASDIRECTED [facility] Last Admin: 08/17/19 06:33 Dose: 20 mls/hr Multivitamins/Minerals 10 ml/Chromium/Copper/Manganese/Zinc 1 ml/ Amino Ac/ Electrol/Dextrose/Calcium 1,011 mls @ 45 mls/hr IV ONETIME ONE Stop: 08/17/19 11:27 Last Admin: 08/16/19 13:15 Dose: 45 mls/hr Adjust Tpn Rate 720 mls @ 60 mls/hr .XX ONETIME ONE Stop: 08/17/19 12:59 Last Admin: 08/17/19 00:56 Dose: 60 mls/hr Multivitamins/Minerals 10 ml/Chromium/Copper/Manganese/Zinc 1 ml/ Amino Ac/ Electrol/Dextrose/Calcium 1,011 mls @ 60 mls/hr IV TITRATE [facility] Stop: 08/18/19 01:50 Last Admin: 08/17/19 08:52 Dose: 60 mls/hr Adjust Tpn Rate 720 mls @ 75 mls/hr .XX ONETIME ONE Stop: 08/17/19 22:35 Last Admin: 08/17/19 14:13 Dose: Not Given Sodium Chloride (Normal Saline) 1,000 mls @ 50 mls/hr IV ASDIRECTED [facility] Last Admin: 08/21/19 17:31 Dose: 50 mls/hr Multivitamins/Minerals 10 ml/Chromium/Copper/Manganese/Zinc 1 ml/ Amino Ac/ Electrol/Dextrose/Calcium 1,011 mls @ 75 mls/hr IV TITRATE [facility] Stop: 08/19/19 01:29 Last Admin: 08/18/19 14:35 Dose: 75 mls/hr Magnesium Sulfate/Dextrose (Magnesium Sulfate In D5w 100 Premix) 1 gm in 100 mls @ 100 mls/hr IV ONETIME ONE Stop: 08/19/19 09:59 Last Admin: 08/19/19 09:42 Dose: 100 mls/hr Multivitamins/Minerals 10 ml/Chromium/Copper/Manganese/Zinc 1 ml/ Amino Ac/ Electrol/Dextrose/Calcium 1,011 mls @ 75 mls/hr IV TITRATE [facility] Stop: 08/20/19 07:29 Last Admin: 08/19/19 17:54 Dose: 75 mls/hr Multivitamins/Minerals 10 ml/Chromium/Copper/Manganese/Zinc 1 ml/ Amino Ac/ Electrol/Dextrose/Calcium 1,011 mls @ 75 mls/hr IV ONETIME ONE Stop: 08/20/19 21:43 Last Admin: 08/20/19 08:26 Dose: 75 mls/hr Magnesium Sulfate 2 gm/ Premix 50 mls @ 25 mls/hr IV ONETIME ONE Stop: 08/20/19 12:59 Last Admin: 08/20/19 11:27 Dose: 25 mls/hr Multivitamins/Minerals 10 ml/Chromium/Copper/Manganese/Zinc 1 ml/ Amino Ac/ Electrol/Dextrose/Calcium 1,011 mls @ 75 mls/hr IV ONETIME ONE Stop: 08/22/19 00:58 Last Admin: 08/21/19 11:51 Dose: 75 mls/hr Multivitamins/Minerals 10 ml/Chromium/Copper/Manganese/Zinc 1 ml/ Amino Ac/ Electrol/Dextrose/Calcium 1,011 mls @ 75 mls/hr IV ONETIME [facility] Stop: 08/23/19 04:29 Last Admin: 08/22/19 15:01 Dose: 75 mls/hr Magnesium Sulfate 4 gm/ Premix 50 mls @ 12.5 mls/hr IV ONETIME ONE Stop: 08/22/19 12:59 Last Admin: 08/22/19 09:29 Dose: 12.5 mls/hr Influenza Virus Vaccine (Pharmacy To Dose - Influenza Vaccine) 1 each IM ONETIME ONE Stop: 08/07/19 22:46 Influenza Virus Vaccine (Fluzone High-Dose Syringe) 180 mcg IM .ONCE ONE Stop: 08/08/19 10:01 Iopamidol (Isovue-300 (61%)) 100 ml IVPUSH ONETIME ONE Stop: 08/11/19 16:42 Last Admin: 08/11/19 16:44 Dose: 100 ml Ipratropium Bradley (Atrovent) 0.5 mg NEB Q4HRRT [facility] Last Admin: 08/11/19 13:29 Dose: 0.5 mg Ketamine HCl (Ketalar) Confirm Administered Dose 500 mg .ROUTE .STK-MED ONE Stop: 08/15/19 15:35 Ketorolac Tromethamine (Toradol) Confirm Administered Dose 30 mg .ROUTE .STK- MED ONE Stop: 08/15/19 18:40 Ketorolac Tromethamine (Toradol) 15 mg IVPUSH Q6H PRN PRN Reason: Pain Stop: 08/18/19 00:31 Last Admin: 08/17/19 20:26 Dose: 15 mg Lidocaine HCl (Xylocaine 1%) Confirm Administered Dose 50 ml .ROUTE .STK-MED ONE Stop: 08/15/19 07:11 Last Admin: 08/15/19 15:09 Dose: 4.5 ml Lidocaine HCl (Xylocaine 1%) Confirm Administered Dose 50 ml .ROUTE .STK-MED ONE Stop: 08/15/19 11:28 Lidocaine HCl (Xylocaine 1%) 20 ml INJECT ONETIME ONE Stop: 08/18/19 17:01 Last Admin: 08/18/19 17:49 Dose: 10 ml Lorazepam (Ativan) 1 mg IVPUSH Q2H PRN PRN Reason: Anxiety Last Admin: 08/21/19 09:22 Dose: 1 mg Magnesium Hydroxide (Milk Of Magnesia) 30 ml PO ONETIME ONE Stop: 08/14/19 07:43 Last Admin: 08/14/19 08:58 Dose: 30 ml Methadone HCl (Methadone) 5 mg PO BID [facility] Last Admin: 08/15/19 21:37 Dose: Not Given Midazolam HCl (Versed 1 Mg/Ml) Confirm Administered Dose 2 mg .ROUTE .STK-MED ONE Stop: 08/15/19 12:15 Miscellaneous Medication (Phenylephrine 1 Mg/10 Ml-Ns) Confirm Administered Dose 1 mg IV .STK-MED ONE Stop: 08/15/19 15:05 Miscellaneous Medication (Phenylephrine 1 Mg/10 Ml-Ns) Confirm Administered Dose 1 mg IV .STK-MED ONE Stop: 08/15/19 16:18 Miscellaneous Medication (Phenylephrine 1 Mg/10 Ml-Ns) Confirm Administered Dose 1 mg IV .STK-MED ONE Stop: 08/15/19 17:47 Miscellaneous Medication (Phenylephrine 1 Mg/10 Ml-Ns) Confirm Administered Dose 1 mg IV .STK-MED ONE Stop: 08/15/19 18:34 Neostigmine Methylsulfate (Neostigmine Methylsulfate) Confirm Administered Dose 5 mg .ROUTE .STK-MED ONE Stop: 08/15/19 16:12 Nicotine (Habitrol) 21 mg TRDERM DAILY [facility] Last Admin: 08/20/19 08:26 Dose: 21 mg Benztropine 2mg/2ml (Vial) 0 each IVPUSH BEDTIME [facility] Last Admin: 08/21/19 20:15 Dose: 1 each Ondansetron HCl (Zofran) 4 mg IVPUSH ONETIME ONE Stop: 08/07/19 16:51 Last Admin: 08/07/19 17:20 Dose: 4 mg Ondansetron HCl (Zofran) 4 mg IVPUSH ONETIME ONE Stop: 08/07/19 19:12 Last Admin: 08/07/19 19:51 Dose: 4 mg Ondansetron HCl (Zofran Odt) 4 mg PO Q6H PRN PRN Reason: nausea, able to take PO Last Admin: 08/13/19 09:44 Dose: 4 mg Ondansetron HCl (Zofran) 4 mg IV Q6H [facility] Last Admin: 08/08/19 06:03 Dose: Not Given Ondansetron HCl (Zofran) 4 mg IV Q6H [facility] Last Admin: 08/08/19 12:40 Dose: 4 mg Ondansetron HCl (Zofran) 4 mg IVPUSH Q8H PRN PRN Reason: Nausea/Vomiting Last Admin: 08/13/19 15:04 Dose: 4 mg Ondansetron HCl (Zofran) 4 mg IVPUSH ONETIME PRN PRN Reason: Nausea/Vomiting Stop: 08/15/19 18:00 Ondansetron HCl (Zofran) Confirm Administered Dose 4 mg .ROUTE .STK-MED ONE Stop: 08/15/19 16:13 Oseltamivir Phosphate (Tamiflu) 75 mg PO BID [facility] Stop: 08/12/19 09:01 Last Admin: 08/12/19 09:24 Dose: 75 mg Propofol (Diprivan 20 Ml) Confirm Administered Dose 200 mg .ROUTE .STK-MED ONE Stop: 08/15/19 12:15 Risperidone (Risperidal) 2 mg PO BEDTIME [facility] Last Admin: 08/15/19 21:36 Dose: Not Given Risperidone (Risperidal) 1 mg PO DAILY [facility] Last Admin: 08/15/19 10:49 Dose: Not Given Rocuronium Bradley (Zemuron) Confirm Administered Dose 50 mg .ROUTE .STK-MED ONE Stop: 08/15/19 12:14 Rocuronium Bradley (Zemuron) Confirm Administered Dose 50 mg .ROUTE .STK-MED ONE Stop: 08/15/19 16:10 Sodium Chloride (Saline Flush) 10 ml FLUSH ONETIME ONE Stop: 08/11/19 16:42 Last Admin: 08/11/19 16:46 Dose: 10 ml Trazodone HCl (Trazodone) 50 mg PO BEDTIME [facility] Last Admin: 08/15/19 21:50 Dose: Not Given - Exam Quality Assessment: Central Line/PICC, DVT Prophylaxis General: Alert, Oriented, Cooperative, No Acute Distress HEENT: Pupils Equal, Pupils Reactive, Mucous Membr. Moist/[place] Neck: Supple Lungs: Clear to Auscultation, Normal Respiratory Effort Cardiovascular: Regular Rate, Regular Rhythm GI/Abdominal Exam: Normal Bowel Sounds, Soft, No Distention, Tender (mild generalized - appropriate ) (Male) Exam: Deferred Back Exam: Normal Inspection, Full Range of Motion Extremities: Normal Inspection, Normal Range of Motion, Non-Tender, No Pedal Edema, Normal Capillary Refill Skin: Warm, Dry, Intact Neurological: No New Focal Deficit Psy/Mental Status: Alert, Normal Affect, Normal Mood Sepsis Event Note - Evaluation Sepsis Screening Result: No Definite Risk - Focused Exam Vital Signs: Vital Signs Temp Temp Pulse Resp BP BP Pulse Ox 08/23/19 12:34 98.2 F 95 16 105/48 L 94 L 08/23/19 12:00 98.3 F 16 105/48 L 94 L 08/23/19 08:29 93 92/49 L 93 L 08/23/19 02:51 97.2 F 104 H 18 104/57 L 92 L Date Exam was Performed: 08/23/19 Time Exam was Performed: 13:05 Consult PN Assessment/Plan POD#: 8 (1) Acute hypoxemic respiratory failure SNOMED Code(s): 433041200 Code(s): J96.01 - ACUTE RESPIRATORY FAILURE WITH HYPOXIA Priority: High Current Visit: Yes (2) Chronic pain SNOMED Code(s): 17013503 Code(s): G89.29 - OTHER CHRONIC PAIN Priority: Medium Current Visit: Yes Qualifiers: Chronic pain type: other chronic pain Qualified Code(s): G89.29 - Other chronic pain (3) Hypoalbuminemia SNOMED Code(s): 719400225 Code(s): E88.09 - OTH DISORDERS OF PLASMA-PROTEIN METABOLISM, NEC Priority : High Current Visit: Yes (4) Hypomagnesemia SNOMED Code(s): 467021612 Code(s): E83.42 - HYPOMAGNESEMIA Priority: High Current Visit: Yes (5) Hyponatremia SNOMED Code(s): 74581562 Code(s): E87.1 - HYPO-OSMOLALITY AND HYPONATREMIA Priority: High Current Visit: Yes (6) Hypophosphatemia SNOMED Code(s): 1258310 Code(s): E83.39 - OTHER DISORDERS OF PHOSPHORUS METABOLISM Priority: High Current Visit: Yes (7) Intractable nausea and vomiting SNOMED Code(s): 710736781 Code(s): R11.2 - NAUSEA WITH VOMITING, UNSPECIFIED Priority: High Current Visit: Yes (8) Leukocytosis SNOMED Code(s): 540045511, 829740628 Code(s): D72.829 - ELEVATED WHITE BLOOD CELL COUNT, UNSPECIFIED Priority: High Current Visit: Yes Qualifiers: Leukocytosis type: unspecified Qualified Code(s): D72.829 - Elevated white blood cell count, unspecified (9) Lung nodule SNOMED Code(s): 137795397 Code(s): R91.1 - SOLITARY PULMONARY NODULE Priority: High Current Visit: Yes (10) Macrocytosis without anemia SNOMED Code(s): 813334176 Code(s): D75.89 - OTHER SPECIFIED DISEASES OF BLOOD AND BLOOD-FORMING ORGANS Priority: High Current Visit: Yes (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 Code(s): 95524877, 915850407 Code(s): F11.20 - OPIOID DEPENDENCE, UNCOMPLICATED Priority: Medium Current Visit: Yes (12) Pneumonia SNOMED Code(s): 100397165 Code(s): J18.9 - PNEUMONIA, UNSPECIFIED ORGANISM Priority: High Current Visit: Yes Qualifiers: Pneumonia type: due to unspecified organism Laterality: unspecified laterality Lung location: unspecified part of lung Qualified Code(s): J18.9 - Pneumonia, unspecified organism (13) Productive cough SNOMED Code(s): 36728629, 634270195, 982421306 Code(s): R05 - COUGH Priority: High Current Visit: Yes (14) Schizophrenia SNOMED Code(s): 92060200 Code(s): F20.9 - SCHIZOPHRENIA, UNSPECIFIED Priority: Medium Current Visit: Yes Qualifiers: Schizophrenia type: unspecified Qualified Code(s): F20.9 - Schizophrenia, unspecified (15) Smoker SNOMED Code(s): 98398460 Code(s): F17.200 - NICOTINE DEPENDENCE, UNSPECIFIED, UNCOMPLICATED Priority : Medium Current Visit: Yes (16) Tachycardia SNOMED Code(s): 5740981 Code(s): R00.0 - TACHYCARDIA, UNSPECIFIED Priority: High Current Visit: Yes (17) Small bowel obstruction SNOMED Code(s): 743364675 Code(s): K56.609 - UNSP INTESTNL OBST, UNSP TO PARTIAL VERSUS COMPLETE OBST Priority: High Current Visit: Yes (18) Laparoscopic surgical procedure converted to open procedure SNOMED Code(s): 553501373 Code(s): Z53.31 - LAPAROSCOPIC SURGICAL PROCEDURE CONVERTED TO OPEN PROCEDURE Priority: High Current Visit: Yes (19) S/P laparotomy SNOMED Code(s): 801829485, 596114489, 388680161 Code(s): Z98.890 - OTHER SPECIFIED POSTPROCEDURAL STATES Priority: High Current Visit: Yes Problem List Initiated/Reviewed/Updated: Yes My Orders Last 24 Hours: My Active Orders 08/22/19 21:00 Benztropine [Cogentin] 1 mg PO BEDTIME Methadone 5 mg PO BID Pantoprazole [ProTONIX] 40 mg PO BEDTIME risperiDONE [RisperiDAL] 2 mg PO BEDTIME traZODone 50 mg PO BEDTIME 08/23/19 09:00 risperiDONE [RisperiDAL] 1 mg PO DAILY Plan: Postop day 7 Exploratory laparotomy, extensive lysis of adhesions, liver cyst excision, CVC placement. Patient is doing well. Postop ileus - resolving Active bowel sounds Large BM on 08/21/19 Plan - Continue TPN and lipids - Dr. Egan managing pain and TPN co-managed with dietary and pharmacy - IV fluids as ordered SBO -post exploratory open laparotomy with Dr. Egan Initially presented with intractable nausea and vomiting to ED Has been stable since admission, vomited x1 on 08/11/19 after drinking coffee Tender knob in RUQ noted on physical exam - not gallbladder, calcified mass on CT. Patient reports chronic since [address] scan Multiple adhesions and right upper quadrant mass excised. PLAN - NG tube pulled by patient - Dr. Egan ok'd to keep out - Advanced diet to Soft per Dr. Egan - Frequent ambulation Pneumonia -clinically resolved Acute hypoxemic respiratory failure -resolved Emphysema Chronic cough, acutely worsening in past week Associated with fever - none on floor CXR with infiltrate in posterior lobes [employer] evaluation - regular diet, thin liquids PLAN - Completed azithromycin, Tamiflu and Rocephin - Atrovent q4h PRN - Incentive spirometer/Acapella - ABG as needed - Goal SatO2 > 88% Lung nodule, right lung Active Smoker Smokes 2/4ppd > 40y Stable lung nodule noted on CT exam 08/11/19 PLAN - Nicotine patch Schizophrenia Home management with Trazodone, Risperdal and Benztropine PLAN -Transition meds back to oral Chronic pain Methadone maintenance therapy patient Denies any current pain PLAN -Pain management per Dr. Egan Muscle wasting Hypoalbuminemia Macrocytosis without anemia Significant muscle wasting Vitamin B12 level and folic acid level WNL Pre-albumin low PLAN -Obstetrics Gynecology Md consult -Monitor intake once off NPO status Follow electrolytes closely PROPHYLAXIS DVT- compression stockings, Heparin CODE STATUS: FULL CODE LOS >96 HRS due to exploratory laparotomy, resulting ileus, awaiting advancement of diet IV fluids/nutrition. Likely discharge to [place] on 08/23 or 08/24 pending continued improvement. Discussed case with Dr. Egan, who performed surgery on Mr. Mathews. Because this is a surgical case at this point, he will graciously take over as primary provider. Hospitalist team will continue to follow closely as consultants and assist in any way as needed.
[2019-08-23] MEDS: Acetaminophen/HYDROcodone 325-5 MG Tab PO PRN ×2 (15:13→19:36)
[2019-08-23] MEDS ORDERED: [UNRECOGNIZED DRUG - REMARK] SCH (20:00)
[2019-08-23] MEDS: Pantoprazole 40 MG Tab.CR PO SCH (20:42)
[2019-08-23] MEDS: Benztropine 1 MG Tab PO SCH (20:45)
[2019-08-23] MEDS: traZODone 50 MG Tab PO SCH (20:46)
[2019-08-23] MEDS: LORazepam 2 MG/ML SDV IVPUSH PRN (22:01)
[2019-08-24] MEDS: Heparin Sodium 5,000 Units/ML Vial SUBCUT SCH ×2 (02:34→09:54)
[2019-08-24] MEDS: Acetaminophen/HYDROcodone 325-5 MG Tab PO PRN ×2 (02:35→06:56)
[2019-08-24] MEDS: Methadone 5 MG Tab PO SCH (09:53)
[2019-08-24] MEDS: Nicotine 14 MG/24 Hr Patch TRDERM SCH (09:54)
[2019-08-24] MEDS: risperiDONE 1 MG Tab PO SCH (09:54)
--- NOTE | 2019-08-24 10:17 | PCM.CONSN ---
- General Info Date of Service: 08/24/19 Admission Dx/Problem (Free Text): Admission Diagnosis/Problem Admission Diagnosis/Problem Pneumonia involving left lung - Patient Data Vitals - Most Recent: Last Vital Signs Temp 97.9 F 08/23/19 20:51 Pulse 87 08/23/19 20:51 Resp 16 08/23/19 20:51 BP 107/57 L 08/23/19 20:51 Pulse Ox 92 L 08/23/19 20:51 Orthostatic Blood Pressure [ 109/60 Standing] Orthostatic Blood Pressure [ 120/69 Sitting] Orthostatic Blood Pressure [ 120/79 Supine] Weight - Most Recent: 133 lb 1.6 oz I&O - Last 24 Hours: Intake & Output 08/23/19 08/24/19 08/24/19 22:59 06:59 14:59 Intake Total 1564 490 Balance 1564 490 Lab Results Last 24 Hours: Laboratory Results - last 24 hr 08/23/19 08/23/19 Range/Units 11:43 17:21 POC Glucose 120 H 133 H (80-115) mg/dL Med Orders - Current: Current Medications Acetaminophen (Tylenol) 650 mg PO Q4H PRN PRN Reason: Pain (Mild 1-3)/fever Last Admin: 08/22/19 13:41 Dose: 650 mg Hydrocodone Bitart/Acetaminophen ([place] 325-5 Mg) 1 tab PO Q4H PRN PRN Reason: Pain (moderate 4-6) Last Admin: 08/24/19 06:56 Dose: 1 tab Albuterol/Ipratropium (Duoneb 3.0-0.5 Mg/3 Ml) 3 ml NEB QIDRT PRN PRN Reason: SOB/wheezing Benztropine Mesylate (Cogentin) 1 mg PO BEDTIME [facility] Last Admin: 08/23/19 20:45 Dose: 1 mg Heparin Sodium (Porcine) (Heparin Sodium) 5,000 units SUBCUT Q8H [facility] Last Admin: 08/24/19 09:54 Dose: 5,000 units Hydromorphone HCl (Dilaudid) 1 mg IVPUSH Q3H PRN PRN Reason: Pain Last Admin: 08/23/19 06:57 Dose: 1 mg Lorazepam (Ativan) 0.5 mg IVPUSH Q2H PRN PRN Reason: Anxiety Last Admin: 08/23/19 22:01 Dose: 0.5 mg Methadone HCl (Methadone) 5 mg PO BID [facility] Last Admin: 08/24/19 09:53 Dose: 5 mg Miscellaneous Information (Remove Patch) 1 ea TRDERM DAILY [facility] Last Admin: 08/24/19 09:55 Dose: 1 ea Nicotine (Habitrol) 14 mg TRDERM DAILY [facility] Last Admin: 08/24/19 09:54 Dose: 14 mg Ondansetron HCl (Zofran) 4 mg IVPUSH Q4H PRN PRN Reason: Nausea/Vomiting Last Admin: 08/23/19 02:46 Dose: 4 mg Pantoprazole Sodium (Protonix) 40 mg PO BEDTIME [facility] Last Admin: 08/23/19 20:42 Dose: 40 mg Risperidone (Risperidal) 1 mg PO DAILY [facility] Last Admin: 08/24/19 09:54 Dose: 1 mg Risperidone (Risperidal) 2 mg PO BEDTIME [facility] Last Admin: 08/23/19 20:46 Dose: 2 mg Sodium Chloride (Saline Flush) 10 ml FLUSH ASDIRECTED PRN PRN Reason: Keep Vein Open Last Admin: 08/11/19 16:44 Dose: 10 ml Trazodone HCl (Trazodone) 50 mg PO BEDTIME [facility] Last Admin: 08/23/19 20:46 Dose: 50 mg Discontinued Medications Albuterol (Proventil Neb Soln) 2.5 mg NEB ONETIME PRN PRN Reason: bronchodilation Stop: 08/15/19 18:00 Albuterol/Ipratropium (Duoneb 3.0-0.5 Mg/3 Ml) 3 ml NEB QIDRT [facility] Last Admin: 08/17/19 09:10 Dose: 3 ml Azithromycin (Zithromax) 250 mg PO BEDTIME [facility] Last Admin: 08/11/19 21:06 Dose: 250 mg Benzonatate (Tessalon Perles) 100 mg PO BID [facility] Last Admin: 08/15/19 21:36 Dose: Not Given Benztropine Mesylate (Cogentin) 1 mg PO BEDTIME [facility] Last Admin: 08/15/19 21:37 Dose: Not Given Benztropine Mesylate (Cogentin) 1 mg IVPUSH BEDTIME [facility] Benztropine Mesylate (Benztropine) 1 mg IVPUSH BEDTIME [facility] Stop: 08/21/19 21:01 Last Admin: 08/22/19 20:19 Dose: Not Given Cefazolin Sodium (Ancef) Confirm Administered Dose 2 gm .ROUTE .STK-MED ONE Stop: 08/15/19 15:23 Cefazolin Sodium (Ancef) Confirm Administered Dose 2 gm .ROUTE .STK-MED ONE Stop: 08/15/19 18:13 Cefdinir (Omnicef) 300 mg PO BID [facility] Last Admin: 08/14/19 08:58 Dose: 300 mg Ceftriaxone Sodium (Rocephin) Confirm Administered Dose 2 gm IV .STK-MED ONE Stop: 08/07/19 19:45 Last Admin: 08/07/19 19:51 Dose: Not Given Diatrizoate Meglum/Diatrizoate Sod (Gastrografin 37%) 90 ml PO ONETIME ONE Stop: 08/11/19 16:42 Last Admin: 08/11/19 16:43 Dose: 90 ml Ephedrine Sulfate (Ephedrine Sulfate) 5 mg IVPUSH ASDIRECTED PRN PRN Reason: Hypotension Stop: 08/15/19 18:00 Famotidine (Pepcid) 20 mg IVPUSH BEDTIME [facility] Last Admin: 08/21/19 20:09 Dose: 20 mg Famotidine (Pepcid) 20 mg IVPUSH ONETIME ONE Stop: 08/20/19 10:01 Last Admin: 08/20/19 09:59 Dose: 20 mg Fentanyl (Sublimaze) Confirm Administered Dose 250 mcg .ROUTE .STK-MED ONE Stop: 08/15/19 12:16 Fentanyl (Sublimaze) 50 mcg IVPUSH Q5M PRN PRN Reason: Pain Stop: 08/15/19 18:00 Fentanyl (Sublimaze) Confirm Administered Dose 100 mcg .ROUTE .STK-MED ONE Stop: 08/15/19 17:11 Glycopyrrolate () Confirm Administered Dose 1 mg .ROUTE .STK-MED ONE Stop: 08/15/19 16:12 Guaifenesin (Mucinex) 600 mg PO BID [facility] Last Admin: 08/15/19 21:37 Dose: Not Given Guaifenesin (Mucinex) 600 mg PO BID [facility] Last Admin: 08/08/19 12:51 Dose: Not Given Haloperidol Lactate (Haldol) 5 mg IVPUSH BEDTIME [facility] Last Admin: 08/15/19 21:51 Dose: 5 mg Haloperidol Lactate (Haldol) 5 mg IV ONETIME PRN PRN Reason: Other Stop: 08/16/19 08:00 Haloperidol Lactate (Haldol) 5 mg IVPUSH Q8H [facility] Last Admin: 08/16/19 09:59 Dose: Not Given Haloperidol Lactate (Haldol) 2 mg IVPUSH ONETIME ONE Stop: 08/16/19 09:01 Last Admin: 08/16/19 09:57 Dose: 2 mg Haloperidol Lactate (Haldol) 5 mg IVPUSH BEDTIME [facility] Last Admin: 08/21/19 20:11 Dose: 5 mg Haloperidol Lactate (Haldol) 2 mg IVPUSH 0600,1400 [facility] Last Admin: 08/22/19 06:09 Dose: 2 mg Hydromorphone HCl (Dilaudid) Confirm Administered Dose 0.5 mg .ROUTE .STK-MED ONE Stop: 08/15/19 15:22 Hydromorphone HCl (Dilaudid) 0.5 mg IVPUSH Q15M PRN PRN Reason: Pain (severe 7-10) Stop: 08/15/19 18:00 Hydromorphone HCl (Dilaudid) Confirm Administered Dose 0.5 mg .ROUTE .STK-MED ONE Stop: 08/15/19 16:18 Hydromorphone HCl (Dilaudid) Confirm Administered Dose 0.5 mg .ROUTE .STK-MED ONE Stop: 08/15/19 18:43 Hydromorphone HCl (Dilaudid) 0.5 mg IVPUSH ONETIME ONE Stop: 08/15/19 20:51 Last Admin: 08/15/19 20:59 Dose: 0.5 mg Hydromorphone HCl (Dilaudid) Confirm Administered Dose 0.5 mg .ROUTE .STK-MED ONE Stop: 08/15/19 21:00 Last Admin: 08/15/19 21:34 Dose: Not Given Hydromorphone HCl (Dilaudid) 0.5 mg IVPUSH Q3H PRN PRN Reason: Abdominal Pain Sodium Chloride (Normal Saline) 1,000 mls @ 150 mls/hr IV ASDIRECTED [facility] Last Admin: 08/08/19 06:02 Dose: 150 mls/hr Ceftriaxone Sodium 2 gm/ (Sodium Chloride) 100 mls @ 200 mls/hr IV ONETIME ONE Stop: 08/07/19 20:00 Last Admin: 08/07/19 19:47 Dose: Not Given Magnesium Sulfate 2 gm/ Premix 50 mls @ 25 mls/hr IV ONETIME ONE Stop: 08/07/19 21:42 Last Admin: 08/07/19 20:24 Dose: 25 mls/hr Ceftriaxone Sodium 2 gm/ (Sodium Chloride) 100 mls @ 200 mls/hr IV Q24H STA Stop: 08/07/19 20:15 Last Admin: 08/07/19 19:49 Dose: 200 mls/hr Sodium Chloride (Normal Saline) Confirm Administered Dose 100 mls @ as directed .ROUTE .[facility] ONE Stop: 08/07/19 19:45 Last Admin: 08/07/19 19:51 Dose: Not Given Azithromycin 500 mg/ Sodium (Chloride) 250 mls @ 250 mls/hr IV Q24H [facility] Last Admin: 08/10/19 22:08 Dose: 250 mls/hr Ceftriaxone Sodium 2 gm/ (Sodium Chloride) 100 mls @ 200 mls/hr IV Q24H [facility] Last Admin: 08/10/19 21:25 Dose: 200 mls/hr Sodium Chloride (Normal Saline) 1,000 mls @ 75 mls/hr IV ASDIRECTED [facility] Sodium Phosphate 30 mmole/ (Sodium Chloride) 260 mls @ 130 mls/hr IV Q2H [facility] Stop: 08/10/19 15:59 Last Admin: 08/10/19 15:12 Dose: 130 mls/hr Magnesium Sulfate 2 gm/ Premix 50 mls @ 25 mls/hr IV ONETIME ONE Stop: 08/11/19 11:08 Last Admin: 08/11/19 09:38 Dose: 25 mls/hr Sodium Chloride (Normal Saline) 1,000 mls @ 75 mls/hr IV ASDIRECTED [facility] Last Admin: 08/12/19 09:24 Dose: 75 mls/hr Sodium Chloride (Normal Saline) Confirm Administered Dose 1,000 mls @ as directed .ROUTE .[facility] ONE Stop: 08/11/19 17:34 Last Admin: 08/11/19 17:43 Dose: Not Given Dextrose/Sodium Chloride (Dextrose 5%-Normal Saline) 1,000 mls @ 100 mls/hr IV ASDIRECTED [facility] Last Infusion: 08/13/19 12:35 Dose: 50 mls/hr Dextrose/Sodium Chloride (Dextrose 5%-Normal Saline) 1,000 mls @ 50 mls/hr IV ASDIRECTED [facility] Dextrose/Sodium Chloride (Dextrose 5%-Normal Saline) 1,000 mls @ 125 mls/hr IV ASDIRECTED [facility] Last Admin: 08/16/19 01:04 Dose: 125 mls/hr Lidocaine HCl (Xylocaine-Mpf 1%) Confirm Administered Dose 4 mls @ as directed .ROUTE .STK-MED ONE Stop: 08/15/19 14:43 Lactated Ringer's (Ringers, Lactated) Confirm Administered Dose 1,000 mls @ as directed .ROUTE .ST-MED ONE Stop: 08/15/19 15:18 Lactated Ringer's (Ringers, Lactated) Confirm Administered Dose 1,000 mls @ as directed .ROUTE .[facility] ONE Stop: 08/15/19 15:18 Phenylephrine HCl 1 mg/ Sodium (Chloride) 10.1 mls @ 1 mls/sec IV TITRATE [facility]; Protocol Stop: 08/15/19 18:00 Lactated Ringer's (Ringers, Lactated) Confirm Administered Dose 1,000 mls @ as directed .ROUTE .STK-MED ONE Stop: 08/15/19 15:57 Lactated Ringer's (Ringers, Lactated) Confirm Administered Dose 1,000 mls @ as directed .ROUTE .[facility] ONE Stop: 08/15/19 18:09 Magnesium Sulfate 2 gm/ Premix 50 mls @ 25 mls/hr IV ONETIME ONE Stop: 08/16/19 10:10 Last Admin: 08/16/19 08:45 Dose: Not Given Magnesium Sulfate 4 gm/ Premix 50 mls @ 12.5 mls/hr IV ONETIME ONE Stop: 08/16/19 12:28 Last Admin: 08/16/19 08:46 Dose: 12.5 mls/hr Dextrose/Sodium Chloride (Dextrose 5%-Normal Saline) 1,000 mls @ 100 mls/hr IV ASDIRECTED [facility] Stop: 08/16/19 13:00 Last Infusion: 08/16/19 12:20 Dose: 20 mls/hr Dextrose/Sodium Chloride (Dextrose 5%-Normal Saline) 1,000 mls @ 20 mls/hr IV ASDIRECTED [facility] Last Admin: 08/17/19 06:33 Dose: 20 mls/hr Multivitamins/Minerals 10 ml/Chromium/Copper/Manganese/Zinc 1 ml/ Amino Ac/ Electrol/Dextrose/Calcium 1,011 mls @ 45 mls/hr IV ONETIME ONE Stop: 08/17/19 11:27 Last Admin: 08/16/19 13:15 Dose: 45 mls/hr Fat Emulsion Intravenous (Intralipid 20%) 500 mls @ 62.5 mls/hr IV MoWeFr [facility] Last Admin: 08/22/19 13:02 Dose: 62.5 mls/hr Adjust Tpn Rate 720 mls @ 60 mls/hr .XX ONETIME ONE Stop: 08/17/19 12:59 Last Admin: 08/17/19 00:56 Dose: 60 mls/hr Multivitamins/Minerals 10 ml/Chromium/Copper/Manganese/Zinc 1 ml/ Amino Ac/ Electrol/Dextrose/Calcium 1,011 mls @ 60 mls/hr IV TITRATE [facility] Stop: 08/18/19 01:50 Last Admin: 08/17/19 08:52 Dose: 60 mls/hr Adjust Tpn Rate 720 mls @ 75 mls/hr .XX ONETIME ONE Stop: 08/17/19 22:35 Last Admin: 08/17/19 14:13 Dose: Not Given Sodium Chloride (Normal Saline) 1,000 mls @ 50 mls/hr IV ASDIRECTED [facility] Last Admin: 08/21/19 17:31 Dose: 50 mls/hr Amino Ac/Electrol/Dextrose/Calcium (Clinimix E 10/11) 1,000 mls @ 75 mls/hr IV TITRATE [facility] Last Infusion: 08/23/19 23:30 Dose: 15 mls/hr Multivitamins/Minerals 10 ml/Chromium/Copper/Manganese/Zinc 1 ml/ Amino Ac/ Electrol/Dextrose/Calcium 1,011 mls @ 75 mls/hr IV TITRATE [facility] Stop: 08/19/19 01:29 Last Admin: 08/18/19 14:35 Dose: 75 mls/hr Magnesium Sulfate/Dextrose (Magnesium Sulfate In D5w 100 Premix) 1 gm in 100 mls @ 100 mls/hr IV ONETIME ONE Stop: 08/19/19 09:59 Last Admin: 08/19/19 09:42 Dose: 100 mls/hr Multivitamins/Minerals 10 ml/Chromium/Copper/Manganese/Zinc 1 ml/ Amino Ac/ Electrol/Dextrose/Calcium 1,011 mls @ 75 mls/hr IV TITRATE [facility] Stop: 08/20/19 07:29 Last Admin: 08/19/19 17:54 Dose: 75 mls/hr Dextrose/Water (Dextrose 10% In Water) 500 mls @ 75 mls/hr IV ASDIRECTED [facility] Last Admin: 08/20/19 07:37 Dose: 75 mls/hr Multivitamins/Minerals 10 ml/Chromium/Copper/Manganese/Zinc 1 ml/ Amino Ac/ Electrol/Dextrose/Calcium 1,011 mls @ 75 mls/hr IV ONETIME ONE Stop: 08/20/19 21:43 Last Admin: 08/20/19 08:26 Dose: 75 mls/hr Magnesium Sulfate 2 gm/ Premix 50 mls @ 25 mls/hr IV ONETIME ONE Stop: 08/20/19 12:59 Last Admin: 08/20/19 11:27 Dose: 25 mls/hr Multivitamins/Minerals 10 ml/Chromium/Copper/Manganese/Zinc 1 ml/ Amino Ac/ Electrol/Dextrose/Calcium 1,011 mls @ 75 mls/hr IV ONETIME ONE Stop: 08/22/19 00:58 Last Admin: 08/21/19 11:51 Dose: 75 mls/hr Multivitamins/Minerals 10 ml/Chromium/Copper/Manganese/Zinc 1 ml/ Amino Ac/ Electrol/Dextrose/Calcium 1,011 mls @ 75 mls/hr IV ONETIME [facility] Stop: 08/23/19 04:29 Last Admin: 08/22/19 15:01 Dose: 75 mls/hr Magnesium Sulfate 4 gm/ Premix 50 mls @ 12.5 mls/hr IV ONETIME ONE Stop: 08/22/19 12:59 Last Admin: 08/22/19 09:29 Dose: 12.5 mls/hr Adjust Tpn Rate 720 mls @ 50 mls/hr .XX ONETIME [facility] Stop: 08/24/19 08:00 Influenza Virus Vaccine (Pharmacy To Dose - Influenza Vaccine) 1 each IM ONETIME ONE Stop: 08/07/19 22:46 Influenza Virus Vaccine (Fluzone High-Dose Syringe) 180 mcg IM .ONCE ONE Stop: 08/08/19 10:01 Iopamidol (Isovue-300 (61%)) 100 ml IVPUSH ONETIME ONE Stop: 08/11/19 16:42 Last Admin: 08/11/19 16:44 Dose: 100 ml Ipratropium [place] (Atrovent) 0.5 mg NEB Q4HRRT [facility] Last Admin: 08/11/19 13:29 Dose: 0.5 mg Ketamine HCl (Ketalar) Confirm Administered Dose 500 mg .ROUTE .STK-MED ONE Stop: 08/15/19 15:35 Ketorolac Tromethamine (Toradol) Confirm Administered Dose 30 mg .ROUTE .STK- MED ONE Stop: 08/15/19 18:40 Ketorolac Tromethamine (Toradol) 15 mg IVPUSH Q6H PRN PRN Reason: Pain Stop: 08/18/19 00:31 Last Admin: 08/17/19 20:26 Dose: 15 mg Lidocaine HCl (Xylocaine 1%) Confirm Administered Dose 50 ml .ROUTE .STK-MED ONE Stop: 08/15/19 07:11 Last Admin: 08/15/19 15:09 Dose: 4.5 ml Lidocaine HCl (Xylocaine 1%) Confirm Administered Dose 50 ml .ROUTE .STK-MED ONE Stop: 08/15/19 11:28 Lidocaine HCl (Xylocaine 1%) 20 ml INJECT ONETIME ONE Stop: 08/18/19 17:01 Last Admin: 08/18/19 17:49 Dose: 10 ml Lorazepam (Ativan) 1 mg IVPUSH Q2H PRN PRN Reason: Anxiety Last Admin: 08/21/19 09:22 Dose: 1 mg Magnesium Hydroxide (Milk Of Magnesia) 30 ml PO ONETIME ONE Stop: 08/14/19 07:43 Last Admin: 08/14/19 08:58 Dose: 30 ml Methadone HCl (Methadone) 5 mg PO BID [facility] Last Admin: 08/15/19 21:37 Dose: Not Given Midazolam HCl (Versed 1 Mg/Ml) Confirm Administered Dose 2 mg .ROUTE .STK-MED ONE Stop: 08/15/19 12:15 Miscellaneous Medication (Phenylephrine 1 Mg/10 Ml-Ns) Confirm Administered Dose 1 mg IV .STK-MED ONE Stop: 08/15/19 15:05 Miscellaneous Medication (Phenylephrine 1 Mg/10 Ml-Ns) Confirm Administered Dose 1 mg IV .STK-MED ONE Stop: 08/15/19 16:18 Miscellaneous Medication (Phenylephrine 1 Mg/10 Ml-Ns) Confirm Administered Dose 1 mg IV .STK-MED ONE Stop: 08/15/19 17:47 Miscellaneous Medication (Phenylephrine 1 Mg/10 Ml-Ns) Confirm Administered Dose 1 mg IV .STK-MED ONE Stop: 08/15/19 18:34 Neostigmine Methylsulfate (Neostigmine Methylsulfate) Confirm Administered Dose 5 mg .ROUTE .STK-MED ONE Stop: 08/15/19 16:12 Nicotine (Habitrol) 21 mg TRDERM DAILY [facility] Last Admin: 08/20/19 08:26 Dose: 21 mg Benztropine 2mg/2ml (Vial) 0 each IVPUSH BEDTIME [facility] Last Admin: 08/21/19 20:15 Dose: 1 each Ondansetron HCl (Zofran) 4 mg IVPUSH ONETIME ONE Stop: 08/07/19 16:51 Last Admin: 08/07/19 17:20 Dose: 4 mg Ondansetron HCl (Zofran) 4 mg IVPUSH ONETIME ONE Stop: 08/07/19 19:12 Last Admin: 08/07/19 19:51 Dose: 4 mg Ondansetron HCl (Zofran Odt) 4 mg PO Q6H PRN PRN Reason: nausea, able to take PO Last Admin: 08/13/19 09:44 Dose: 4 mg Ondansetron HCl (Zofran) 4 mg IV Q6H [facility] Last Admin: 08/08/19 06:03 Dose: Not Given Ondansetron HCl (Zofran) 4 mg IV Q6H [facility] Last Admin: 08/08/19 12:40 Dose: 4 mg Ondansetron HCl (Zofran) 4 mg IVPUSH Q8H PRN PRN Reason: Nausea/Vomiting Last Admin: 08/13/19 15:04 Dose: 4 mg Ondansetron HCl (Zofran) 4 mg IVPUSH ONETIME PRN PRN Reason: Nausea/Vomiting Stop: 08/15/19 18:00 Ondansetron HCl (Zofran) Confirm Administered Dose 4 mg .ROUTE .STK-MED ONE Stop: 08/15/19 16:13 Oseltamivir Phosphate (Tamiflu) 75 mg PO BID [facility] Stop: 08/12/19 09:01 Last Admin: 08/12/19 09:24 Dose: 75 mg Pharmacy Consult (Consult To Pharmacy) 0 each .XX DAILY PRN PRN Reason: TPN MONITORING Propofol (Diprivan 20 Ml) Confirm Administered Dose 200 mg .ROUTE .STK-MED ONE Stop: 08/15/19 12:15 Risperidone (Risperidal) 2 mg PO BEDTIME [facility] Last Admin: 08/15/19 21:36 Dose: Not Given Risperidone (Risperidal) 1 mg PO DAILY [facility] Last Admin: 08/15/19 10:49 Dose: Not Given Rocuronium [place] (Zemuron) Confirm Administered Dose 50 mg .ROUTE .STK-MED ONE Stop: 08/15/19 12:14 Rocuronium [place] (Zemuron) Confirm Administered Dose 50 mg .ROUTE .STK-MED ONE Stop: 08/15/19 16:10 Sodium Chloride (Saline Flush) 10 ml FLUSH ONETIME ONE Stop: 08/11/19 16:42 Last Admin: 08/11/19 16:46 Dose: 10 ml Trazodone HCl (Trazodone) 50 mg PO BEDTIME [facility] Last Admin: 08/15/19 21:50 Dose: Not Given Sepsis Event Note - Evaluation Sepsis Screening Result: No Definite Risk Consult PN Assessment/Plan (1) Acute hypoxemic respiratory failure SNOMED Code(s): 180670093 Code(s): J96.01 - ACUTE RESPIRATORY FAILURE WITH HYPOXIA Priority: High Current Visit: Yes (2) Chronic pain SNOMED Code(s): 94269494 Code(s): G89.29 - OTHER CHRONIC PAIN Priority: Medium Current Visit: Yes Qualifiers: Chronic pain type: other chronic pain Qualified Code(s): G89.29 - Other chronic pain (3) Hypoalbuminemia SNOMED Code(s): 179835714 Code(s): E88.09 - OTH DISORDERS OF PLASMA-PROTEIN METABOLISM, NEC Priority : High Current Visit: Yes (4) Hypomagnesemia SNOMED Code(s): 587844854 Code(s): E83.42 - HYPOMAGNESEMIA Priority: High Current Visit: Yes (5) Hyponatremia SNOMED Code(s): 40151723 Code(s): E87.1 - HYPO-OSMOLALITY AND HYPONATREMIA Priority: High Current Visit: Yes (6) Hypophosphatemia SNOMED Code(s): 6982613 Code(s): E83.39 - OTHER DISORDERS OF PHOSPHORUS METABOLISM Priority: High Current Visit: Yes (7) Intractable nausea and vomiting SNOMED Code(s): 359559757 Code(s): R11.2 - NAUSEA WITH VOMITING, UNSPECIFIED Priority: High Current Visit: Yes (8) Leukocytosis SNOMED Code(s): 011896491, 142714402 Code(s): D72.829 - ELEVATED WHITE BLOOD CELL COUNT, UNSPECIFIED Priority: High Current Visit: Yes Qualifiers: Leukocytosis type: unspecified Qualified Code(s): D72.829 - Elevated white blood cell count, unspecified (9) Lung nodule SNOMED Code(s): 170118341 Code(s): R91.1 - SOLITARY PULMONARY NODULE Priority: High Current Visit: Yes (10) Macrocytosis without anemia SNOMED Code(s): 476276394 Code(s): D75.89 - OTHER SPECIFIED DISEASES OF BLOOD AND BLOOD-FORMING ORGANS Priority: High Current Visit: Yes (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 Code(s): 67310501, 908037897 Code(s): F11.20 - OPIOID DEPENDENCE, UNCOMPLICATED Priority: Medium Current Visit: Yes (12) Pneumonia SNOMED Code(s): 270824706 Code(s): J18.9 - PNEUMONIA, UNSPECIFIED ORGANISM Priority: High Current Visit: Yes Qualifiers: Pneumonia type: due to unspecified organism Laterality: unspecified laterality Lung location: unspecified part of lung Qualified Code(s): J18.9 - Pneumonia, unspecified organism (13) Productive cough SNOMED Code(s): 16299766, 287211014, 520969285 Code(s): R05 - COUGH Priority: High Current Visit: Yes (14) Schizophrenia SNOMED Code(s): 18673889 Code(s): F20.9 - SCHIZOPHRENIA, UNSPECIFIED Priority: Medium Current Visit: Yes Qualifiers: Schizophrenia type: unspecified Qualified Code(s): F20.9 - Schizophrenia, unspecified (15) Smoker SNOMED Code(s): 85807626 Code(s): F17.200 - NICOTINE DEPENDENCE, UNSPECIFIED, UNCOMPLICATED Priority : Medium Current Visit: Yes (16) Tachycardia SNOMED Code(s): 5667632 Code(s): R00.0 - TACHYCARDIA, UNSPECIFIED Priority: High Current Visit: Yes (17) Small bowel obstruction SNOMED Code(s): 273141674 Code(s): K56.609 - UNSP INTESTNL OBST, UNSP TO PARTIAL VERSUS COMPLETE OBST Priority: High Current Visit: Yes (18) Laparoscopic surgical procedure converted to open procedure SNOMED Code(s): 551147926 Code(s): Z53.31 - LAPAROSCOPIC SURGICAL PROCEDURE CONVERTED TO OPEN PROCEDURE Priority: High Current Visit: Yes (19) S/P laparotomy SNOMED Code(s): 732139785, 164137280, 949128820 Code(s): Z98.890 - OTHER SPECIFIED POSTPROCEDURAL STATES Priority: High Current Visit: Yes
--- NOTE | 2019-08-24 15:23 | PCM.DCSUM1 ---
Discharge Summary - Hospital Course HPI Initial Comments: Patient is a very poor historian This is a 68 year old male with past medical history of schizophrenia and chronic pain who comes to the ED complaining of refractory nausea and inability to tolerate PO. As per patient about a week ago he suddenly developed nausea associated with diarrhea. States nausea lasted all day long and he has been unable to tolerate any oral ingestion. As for his diarrhea he states he has been having approximately 3BM/day, this didn't stop until he took some Imodium 3-4 days ago. Of note he associated symptoms with worsening cough of the same time duration. Diagnosis: Stroke: No - Discharge Data Discharge Date: 08/24/19 (Admit date: 08/07/19) Discharge Disposition: Home, Home Health Agency 06 Condition: Good - Referral to Home Health Date of Face to Face Encounter: 08/24/19 Reason for Homebound Status: See discharge Primary Care Physician: Yandy Harden NP Skilled Need: See discharge - Discharge Diagnosis/Problem(s) (1) Acute hypoxemic respiratory failure SNOMED Code(s): 051977580 ICD Code: J96.01 - ACUTE RESPIRATORY FAILURE WITH HYPOXIA Status: Resolved Priority: High Current Visit: Yes (2) Chronic pain SNOMED Code(s): 38095055 ICD Code: G89.29 - OTHER CHRONIC PAIN Status: Chronic Priority: Medium Current Visit: Yes Qualifiers: Chronic pain type: other chronic pain Qualified Code(s): G89.29 - Other chronic pain (3) Hypoalbuminemia SNOMED Code(s): 845209103 ICD Code: E88.09 - OTH DISORDERS OF PLASMA-PROTEIN METABOLISM, NEC Status: Acute Priority: High Current Visit: Yes (4) Hypomagnesemia SNOMED Code(s): 339031562 ICD Code: E83.42 - HYPOMAGNESEMIA Status: Resolved Priority: High Current Visit: Yes (5) Hyponatremia SNOMED Code(s): 01501930 ICD Code: E87.1 - HYPO-OSMOLALITY AND HYPONATREMIA Status: Resolved Priority: High Current Visit: Yes (6) Hypophosphatemia SNOMED Code(s): 3112207 ICD Code: E83.39 - OTHER DISORDERS OF PHOSPHORUS METABOLISM Status: Resolved Priority: High Current Visit: Yes (7) Intractable nausea and vomiting SNOMED Code(s): 808721371 ICD Code: R11.2 - NAUSEA WITH VOMITING, UNSPECIFIED Status: Resolved Priority: High Current Visit: Yes (8) Leukocytosis SNOMED Code(s): 510811749, 457995239 ICD Code: D72.829 - ELEVATED WHITE BLOOD CELL COUNT, UNSPECIFIED Status: Acute Priority: High Current Visit: Yes Qualifiers: Leukocytosis type: unspecified Qualified Code(s): D72.829 - Elevated white blood cell count, unspecified (9) Lung nodule SNOMED Code(s): 871986513 ICD Code: R91.1 - SOLITARY PULMONARY NODULE Status: Acute Priority: High Current Visit: Yes (10) Macrocytosis without anemia SNOMED Code(s): 771086848 ICD Code: D75.89 - OTHER SPECIFIED DISEASES OF BLOOD AND BLOOD-FORMING ORGANS Status: Acute Priority: High Current Visit: Yes (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 Code(s): 63819312, 924012960 ICD Code: F11.20 - OPIOID DEPENDENCE, UNCOMPLICATED Status: Chronic Priority: Medium Current Visit: Yes (12) Pneumonia SNOMED Code(s): 520986613 ICD Code: J18.9 - PNEUMONIA, UNSPECIFIED ORGANISM Status: Resolved Priority: High Current Visit: Yes Qualifiers: Pneumonia type: due to unspecified organism Laterality: unspecified laterality Lung location: unspecified part of lung Qualified Code(s): J18.9 - Pneumonia, unspecified organism (13) Productive cough SNOMED Code(s): 55794441, 711645756, 761136470 ICD Code: R05 - COUGH Status: Resolved Priority: High Current Visit: Yes (14) Schizophrenia SNOMED Code(s): 39588492 ICD Code: F20.9 - SCHIZOPHRENIA, UNSPECIFIED Status: Chronic Priority: Medium Current Visit: Yes Qualifiers: Schizophrenia type: unspecified Qualified Code(s): F20.9 - Schizophrenia, unspecified (15) Smoker SNOMED Code(s): 36409468 ICD Code: F17.200 - NICOTINE DEPENDENCE, UNSPECIFIED, UNCOMPLICATED Status : Chronic Priority: Medium Current Visit: Yes (16) Tachycardia SNOMED Code(s): 4259126 ICD Code: R00.0 - TACHYCARDIA, UNSPECIFIED Status: Resolved Priority: High Current Visit: Yes (17) Small bowel obstruction SNOMED Code(s): 382567113 ICD Code: K56.609 - UNSP INTESTNL OBST, UNSP TO PARTIAL VERSUS COMPLETE OBST Status: Resolved Priority: High Current Visit: Yes (18) Laparoscopic surgical procedure converted to open procedure SNOMED Code(s): 368927203 ICD Code: Z53.31 - LAPAROSCOPIC SURGICAL PROCEDURE CONVERTED TO OPEN PROCEDURE Status: Acute Priority: High Current Visit: Yes (19) S/P laparotomy SNOMED Code(s): 428602214, 179770206, 176589963 ICD Code: Z98.890 - OTHER SPECIFIED POSTPROCEDURAL STATES Status: Acute Priority: High Current Visit: Yes - Patient Summary/Data Consults: Consultations 08/07/19 21:29 Respiratory Care Assess and Treatment [CONS] Routine [employer] Evaluation and Treatment [CONS] Routine 08/07/19 22:03 Consult to [employer] [CONS] Routine 08/11/19 17:21 Consult to Physician [CONS] Routine 08/16/19 18:12 PT Evaluation and Treatment [CONS] Routine 08/17/19 08:00 Consult to Occupational Therapy [OT Evaluation and Treatment] [CONS] Routine Consult to Physical Therapy [PT Evaluation and Treatment] [CONS] Routine 08/20/19 11:37 Consult to Physician [CONS] Routine Labs Pending at D/C: None Recommended Follow-up Testing/Procedures: Follow-up with PCP within 5-7 days of discharge. Follow-up with Dr. Egan within 1 week of discharge. Hospital Course: Salvador was admitted to the floor due to a posterior lobe pneumonia. He was started on Tamiflu, Rocephin, and azithromycin. He is also given an incentive spirometer and Acapella. He was requiring oxygen but was able to be weaned off. He was noted some coughing and there was some questionable risk for aspiration so he was evaluated by [employer] who recommended a regular diet with thin liquids. Unfortunately while here he also was noted a small bowel obstruction. He was noting nausea and vomiting prior to admission so it was likely at least beginning prior to him coming to the emergency room. Patient did have a longstanding history of a mass in his right upper abdomen which was calcified on imaging. General surgeon, Dr. Egan was consulted who recommended an exploratory laparoscopic procedure as the bowel obstruction was likely related to adhesions. Once in the abdomen there was noted to be multiple adhesions and ultimately surgery was converted to a laparotomy. Large calcified lesion was removed and pathology returned noting it is likely an area of chronic inflammation that had been walled off. No signs of neoplasm. He was given TPN and liquids and was eventually converted to a clear liquid diet. This was slowly advanced until he was able to tolerate a regular diet. Is a chronic smoker and was prescribed nicotine patches at discharge. He was also given a list of resources, including his primary care provider, for assistance with this. He does have a history of schizophrenia and his oral meds were discontinued with his small bowel obstruction. He was switched to IV Haldol and Ativan. Prior to discharge and once his bowel function returned he was restarted on p.o. meds with good results. He was noted to have a low albumin and pre-albumin, along with significant muscle wasting and our dietitian did see him. He continued to improve and work with therapies who ultimately discharged him. Unfortunately he also had a direct exposure to an individual suffering from COVID-19. Infection control as well as local health department are aware of this and have been monitoring the patient. From this standpoint he is remained asymptomatic. He was advised that he should continue isolation until cleared by the health unit. He was also provided our facility standard sheet of what to watch for as far as symptoms and recommendations. He was discharged today. He was advised to not lift over 10 pounds for at least a month or until cleared by Dr. Egan. He may shower but should not bathe. He was prescribed PRN Fossil and as needed Zofran prior to discharge. He was also prescribed nicotine patches as mentioned prior. He was instructed to follow-up with his primary care provider within 5 to 7 days of discharge and Dr. Egan within 1 week. Due to Mr. Mathews's significant abdominal surgery and baseline schizophrenia it is felt that he would benefit from home health services. Dr. right walter is recommending [facility] monitor the patient for progression of healing, signs of infection, and to ensure patient is following directions and progressing along medically. It is believed Mr. Mathews will be homebound as he knows he will need to remain isolated and issues with his underlying schizophrenia diagnosis. The services will likely be needed for 1 to 2 months. This will be monitored by the patient's primary care provider, Yandy Harden NP and may be adjusted as she sees fit. - Patient Instructions Diet: Usual Diet as Tolerated Activity: As Tolerated, No Lifting Over 10 Pounds Driving: Do Not Drive Showering/Bathing: May Shower, No Tub Bathing/Swimming Notify Provider of: Fever, Increased Pain, Swelling and Redness, Drainage, Nausea and/or Vomiting Other/Special Instructions: Follow-up with primary care provider within 5-7 days of discharge. Follow-up with Dr. Egan within 1 week. Continue to utilize your incentive spirometer (Clear/blue device you inhale through) for 1- 2 more weeks. You completed treatment for your respiratory symptoms while here. Take your pain medications as needed. Try to wean off of these. Walk around your house frequently. You were given resources for smoking cessation including patches. You may contact any of these resources for assistance in smoking cessation. You may also contact your primary care provider for assistance with this. You will need to be weaned down with the dosing of this as you progress towards being cigarette free. You were directly exposed to the COVID -19 virus. You should continue to monitor your symptoms per the handout you were given. You will be contacted by the [facility] Department after discharge for further monitoring and instructions. You need to remain isolated at home until cleared by them to leave your house. Should symptoms return or worsen, contact your primary care provider, Dr. Egan, or return to the Emergency Department. - Discharge Plan *PRESCRIPTION DRUG MONITORING PROGRAM REVIEWED*: No *COPY OF PRESCRIPTION DRUG MONITORING REPORT IN PATIENT [place]: No Prescriptions/Med Rec: Acetaminophen/HYDROcodone [Fossil 325-5 MG] 1 tab PO Q6H PRN #20 tablet PRN Reason: Pain (Moderate 4-6) Nicotine [Habitrol] 14 mg TRDERM DAILY #15 patch Ondansetron HCl [Zofran] 4 mg PO Q8H PRN #15 tablet PRN Reason: Nausea Home Medications: Home Meds Omeprazole 20 mg PO DAILY 08/07/19 [History] Acetaminophen [Tylenol Extra Strength] 500 mg PO Q12HR PRN 08/08/19 [History] Benztropine [Cogentin] 1 mg PO BEDTIME 08/08/19 [History] Methadone 5 mg PO BID 08/08/19 [History] risperiDONE 1 mg PO DAILY 08/08/19 [History] risperiDONE [Risperdal] 2 mg PO BEDTIME 08/08/19 [History] traZODone HCl [Trazodone HCl] 50 mg PO BEDTIME 08/08/19 [History] Acetaminophen/HYDROcodone [Fossil 325-5 MG] 1 tab PO Q6H PRN #20 tablet 08/24/19 [Rx] Nicotine [Habitrol] 14 mg TRDERM DAILY #15 patch 08/24/19 [Rx] Ondansetron HCl [Zofran] 4 mg PO Q8H PRN #15 tablet 08/24/19 [Rx] Oxygen Therapy Mode: Room Air Patient Handouts: Sepsis, Diagnosis, Adult, Incision Care, Adult, Steps to Quit Smoking Forms: ED Department Discharge Referrals: Yandy Harden NP [Primary Care Provider] - Elie Egan MD [Physician] - - Discharge Summary/Plan Comment DC Time >30 min.: Yes (45 mins ) - General Info Date of Service: 08/24/19 Functional Status: Reports: Pain Controlled, Tolerating Diet, Ambulating, Urinating, Incentive Spirometry, Other (acapella ). Denies: New Symptoms - Review of Systems General: Reports: No Symptoms. Denies: Fever, Weakness, Fatigue, Malaise, Chills HEENT: Reports: No Symptoms. Denies: Headaches, Sore Throat Pulmonary: Reports: No Symptoms. Denies: Shortness of Breath, Cough, Sputum, Wheezing Cardiovascular: Reports: No Symptoms. Denies: Chest Pain, Palpitations, Dyspnea on Exertion Gastrointestinal: Reports: Abdominal Pain (mild but greatly improved - mostly around former drain sites). Denies: Constipation, Decreased Appetite, Diarrhea , Nausea (mild episode this am which resolved. ), Vomiting Genitourinary: Reports: No Symptoms. Denies: Pain Musculoskeletal: Reports: No Symptoms Skin: Reports: No Symptoms. Denies: Cyanosis Neurological: Reports: No Symptoms. Denies: Difficulty Walking, Gait Disturbance Psychiatric: Reports: No Symptoms - Patient Data Vitals - Most Recent: Last Vital Signs Temp 97.7 F 08/24/19 14:53 Pulse 96 08/24/19 14:53 Resp 19 08/24/19 14:53 BP 102/60 08/24/19 14:53 Pulse Ox 93 L 08/24/19 14:53 Orthostatic Blood Pressure [ 109/60 Standing] Orthostatic Blood Pressure [ 120/69 Sitting] Orthostatic Blood Pressure [ 120/79 Supine] Weight - Most Recent: 133 lb 1.6 oz I&O - Last 24 hours: Intake & Output 08/24/19 08/24/19 08/24/19 06:59 14:59 22:59 Intake Total 490 120 Balance 490 120 Lab Results - Last 24 hrs: Laboratory Results - last 24 hr 08/23/19 08/23/19 Range/Units 11:43 17:21 POC Glucose 120 H 133 H (80-115) mg/dL Med Orders - Current: Current Medications Acetaminophen (Tylenol) 650 mg PO Q4H PRN PRN Reason: Pain (Mild 1-3)/fever Last Admin: 08/22/19 13:41 Dose: 650 mg Hydrocodone Bitart/Acetaminophen (Fossil 325-5 Mg) 1 tab PO Q4H PRN PRN Reason: Pain (moderate 4-6) Last Admin: 08/24/19 06:56 Dose: 1 tab Albuterol/Ipratropium (Duoneb 3.0-0.5 Mg/3 Ml) 3 ml NEB QIDRT PRN PRN Reason: SOB/wheezing Benztropine Mesylate (Cogentin) 1 mg PO BEDTIME [facility] Last Admin: 08/23/19 20:45 Dose: 1 mg Heparin Sodium (Porcine) (Heparin Sodium) 5,000 units SUBCUT Q8H [facility] Last Admin: 08/24/19 09:54 Dose: 5,000 units Hydromorphone HCl (Dilaudid) 1 mg IVPUSH Q3H PRN PRN Reason: Pain Last Admin: 08/23/19 06:57 Dose: 1 mg Lorazepam (Ativan) 0.5 mg IVPUSH Q2H PRN PRN Reason: Anxiety Last Admin: 08/23/19 22:01 Dose: 0.5 mg Methadone HCl (Methadone) 5 mg PO BID [facility] Last Admin: 08/24/19 09:53 Dose: 5 mg Miscellaneous Information (Remove Patch) 1 ea TRDERM DAILY [facility] Last Admin: 08/24/19 09:55 Dose: 1 ea Nicotine (Habitrol) 14 mg TRDERM DAILY [facility] Last Admin: 08/24/19 09:54 Dose: 14 mg Ondansetron HCl (Zofran) 4 mg IVPUSH Q4H PRN PRN Reason: Nausea/Vomiting Last Admin: 08/23/19 02:46 Dose: 4 mg Pantoprazole Sodium (Protonix) 40 mg PO BEDTIME [facility] Last Admin: 08/23/19 20:42 Dose: 40 mg Risperidone (Risperidal) 1 mg PO DAILY [facility] Last Admin: 08/24/19 09:54 Dose: 1 mg Risperidone (Risperidal) 2 mg PO BEDTIME [facility] Last Admin: 08/23/19 20:46 Dose: 2 mg Sodium Chloride (Saline Flush) 10 ml FLUSH ASDIRECTED PRN PRN Reason: Keep Vein Open Last Admin: 08/11/19 16:44 Dose: 10 ml Trazodone HCl (Trazodone) 50 mg PO BEDTIME [facility] Last Admin: 08/23/19 20:46 Dose: 50 mg Discontinued Medications Albuterol (Proventil Neb Soln) 2.5 mg NEB ONETIME PRN PRN Reason: bronchodilation Stop: 08/15/19 18:00 Albuterol/Ipratropium (Duoneb 3.0-0.5 Mg/3 Ml) 3 ml NEB QIDRT [facility] Last Admin: 08/17/19 09:10 Dose: 3 ml Azithromycin (Zithromax) 250 mg PO BEDTIME [facility] Last Admin: 08/11/19 21:06 Dose: 250 mg Benzonatate (Tessalon Perles) 100 mg PO BID [facility] Last Admin: 08/15/19 21:36 Dose: Not Given Benztropine Mesylate (Cogentin) 1 mg PO BEDTIME [facility] Last Admin: 08/15/19 21:37 Dose: Not Given Benztropine Mesylate (Cogentin) 1 mg IVPUSH BEDTIME [facility] Benztropine Mesylate (Benztropine) 1 mg IVPUSH BEDTIME [facility] Stop: 08/21/19 21:01 Last Admin: 08/22/19 20:19 Dose: Not Given Cefazolin Sodium (Ancef) Confirm Administered Dose 2 gm .ROUTE .STK-MED ONE Stop: 08/15/19 15:23 Cefazolin Sodium (Ancef) Confirm Administered Dose 2 gm .ROUTE .STK-MED ONE Stop: 08/15/19 18:13 Cefdinir (Omnicef) 300 mg PO BID [facility] Last Admin: 08/14/19 08:58 Dose: 300 mg Ceftriaxone Sodium (Rocephin) Confirm Administered Dose 2 gm IV .STK-MED ONE Stop: 08/07/19 19:45 Last Admin: 08/07/19 19:51 Dose: Not Given Diatrizoate Meglum/Diatrizoate Sod (Gastrografin 37%) 90 ml PO ONETIME ONE Stop: 08/11/19 16:42 Last Admin: 08/11/19 16:43 Dose: 90 ml Ephedrine Sulfate (Ephedrine Sulfate) 5 mg IVPUSH ASDIRECTED PRN PRN Reason: Hypotension Stop: 08/15/19 18:00 Famotidine (Pepcid) 20 mg IVPUSH BEDTIME [facility] Last Admin: 08/21/19 20:09 Dose: 20 mg Famotidine (Pepcid) 20 mg IVPUSH ONETIME ONE Stop: 08/20/19 10:01 Last Admin: 08/20/19 09:59 Dose: 20 mg Fentanyl (Sublimaze) Confirm Administered Dose 250 mcg .ROUTE .STK-MED ONE Stop: 08/15/19 12:16 Fentanyl (Sublimaze) 50 mcg IVPUSH Q5M PRN PRN Reason: Pain Stop: 08/15/19 18:00 Fentanyl (Sublimaze) Confirm Administered Dose 100 mcg .ROUTE .STK-MED ONE Stop: 08/15/19 17:11 Glycopyrrolate () Confirm Administered Dose 1 mg .ROUTE .STK-MED ONE Stop: 08/15/19 16:12 Guaifenesin (Mucinex) 600 mg PO BID [facility] Last Admin: 08/15/19 21:37 Dose: Not Given Guaifenesin (Mucinex) 600 mg PO BID [facility] Last Admin: 08/08/19 12:51 Dose: Not Given Haloperidol Lactate (Haldol) 5 mg IVPUSH BEDTIME [facility] Last Admin: 08/15/19 21:51 Dose: 5 mg Haloperidol Lactate (Haldol) 5 mg IV ONETIME PRN PRN Reason: Other Stop: 08/16/19 08:00 Haloperidol Lactate (Haldol) 5 mg IVPUSH Q8H [facility] Last Admin: 08/16/19 09:59 Dose: Not Given Haloperidol Lactate (Haldol) 2 mg IVPUSH ONETIME ONE Stop: 08/16/19 09:01 Last Admin: 08/16/19 09:57 Dose: 2 mg Haloperidol Lactate (Haldol) 5 mg IVPUSH BEDTIME [facility] Last Admin: 08/21/19 20:11 Dose: 5 mg Haloperidol Lactate (Haldol) 2 mg IVPUSH 0600,1400 [facility] Last Admin: 08/22/19 06:09 Dose: 2 mg Hydromorphone HCl (Dilaudid) Confirm Administered Dose 0.5 mg .ROUTE .STK-MED ONE Stop: 08/15/19 15:22 Hydromorphone HCl (Dilaudid) 0.5 mg IVPUSH Q15M PRN PRN Reason: Pain (severe 7-10) Stop: 08/15/19 18:00 Hydromorphone HCl (Dilaudid) Confirm Administered Dose 0.5 mg .ROUTE .STK-MED ONE Stop: 08/15/19 16:18 Hydromorphone HCl (Dilaudid) Confirm Administered Dose 0.5 mg .ROUTE .STK-MED ONE Stop: 08/15/19 18:43 Hydromorphone HCl (Dilaudid) 0.5 mg IVPUSH ONETIME ONE Stop: 08/15/19 20:51 Last Admin: 08/15/19 20:59 Dose: 0.5 mg Hydromorphone HCl (Dilaudid) Confirm Administered Dose 0.5 mg .ROUTE .STK-MED ONE Stop: 08/15/19 21:00 Last Admin: 08/15/19 21:34 Dose: Not Given Hydromorphone HCl (Dilaudid) 0.5 mg IVPUSH Q3H PRN PRN Reason: Abdominal Pain Sodium Chloride (Normal Saline) 1,000 mls @ 150 mls/hr IV ASDIRECTED [facility] Last Admin: 08/08/19 06:02 Dose: 150 mls/hr Ceftriaxone Sodium 2 gm/ (Sodium Chloride) 100 mls @ 200 mls/hr IV ONETIME ONE Stop: 08/07/19 20:00 Last Admin: 08/07/19 19:47 Dose: Not Given Magnesium Sulfate 2 gm/ Premix 50 mls @ 25 mls/hr IV ONETIME ONE Stop: 08/07/19 21:42 Last Admin: 08/07/19 20:24 Dose: 25 mls/hr Ceftriaxone Sodium 2 gm/ (Sodium Chloride) 100 mls @ 200 mls/hr IV Q24H STA Stop: 08/07/19 20:15 Last Admin: 08/07/19 19:49 Dose: 200 mls/hr Sodium Chloride (Normal Saline) Confirm Administered Dose 100 mls @ as directed .ROUTE .[facility] ONE Stop: 08/07/19 19:45 Last Admin: 08/07/19 19:51 Dose: Not Given Azithromycin 500 mg/ Sodium (Chloride) 250 mls @ 250 mls/hr IV Q24H [facility] Last Admin: 08/10/19 22:08 Dose: 250 mls/hr Ceftriaxone Sodium 2 gm/ (Sodium Chloride) 100 mls @ 200 mls/hr IV Q24H [facility] Last Admin: 08/10/19 21:25 Dose: 200 mls/hr Sodium Chloride (Normal Saline) 1,000 mls @ 75 mls/hr IV ASDIRECTED [facility] Sodium Phosphate 30 mmole/ (Sodium Chloride) 260 mls @ 130 mls/hr IV Q2H [facility] Stop: 08/10/19 15:59 Last Admin: 08/10/19 15:12 Dose: 130 mls/hr Magnesium Sulfate 2 gm/ Premix 50 mls @ 25 mls/hr IV ONETIME ONE Stop: 08/11/19 11:08 Last Admin: 08/11/19 09:38 Dose: 25 mls/hr Sodium Chloride (Normal Saline) 1,000 mls @ 75 mls/hr IV ASDIRECTED [facility] Last Admin: 08/12/19 09:24 Dose: 75 mls/hr Sodium Chloride (Normal Saline) Confirm Administered Dose 1,000 mls @ as directed .ROUTE .[facility] ONE Stop: 08/11/19 17:34 Last Admin: 08/11/19 17:43 Dose: Not Given Dextrose/Sodium Chloride (Dextrose 5%-Normal Saline) 1,000 mls @ 100 mls/hr IV ASDIRECTED [facility] Last Infusion: 08/13/19 12:35 Dose: 50 mls/hr Dextrose/Sodium Chloride (Dextrose 5%-Normal Saline) 1,000 mls @ 50 mls/hr IV ASDIRECTED [facility] Dextrose/Sodium Chloride (Dextrose 5%-Normal Saline) 1,000 mls @ 125 mls/hr IV ASDIRECTED [facility] Last Admin: 08/16/19 01:04 Dose: 125 mls/hr Lidocaine HCl (Xylocaine-Mpf 1%) Confirm Administered Dose 4 mls @ as directed .ROUTE .[facility] ONE Stop: 08/15/19 14:43 Lactated Ringer's (Ringers, Lactated) Confirm Administered Dose 1,000 mls @ as directed .ROUTE .[facility] ONE Stop: 08/15/19 15:18 Lactated Ringer's (Ringers, Lactated) Confirm Administered Dose 1,000 mls @ as directed .ROUTE .[facility] ONE Stop: 08/15/19 15:18 Phenylephrine HCl 1 mg/ Sodium (Chloride) 10.1 mls @ 1 mls/sec IV TITRATE [facility]; Protocol Stop: 08/15/19 18:00 Lactated Ringer's (Ringers, Lactated) Confirm Administered Dose 1,000 mls @ as directed .ROUTE .[facility] ONE Stop: 08/15/19 15:57 Lactated Ringer's (Ringers, Lactated) Confirm Administered Dose 1,000 mls @ as directed .ROUTE .[facility] ONE Stop: 08/15/19 18:09 Magnesium Sulfate 2 gm/ Premix 50 mls @ 25 mls/hr IV ONETIME ONE Stop: 08/16/19 10:10 Last Admin: 08/16/19 08:45 Dose: Not Given Magnesium Sulfate 4 gm/ Premix 50 mls @ 12.5 mls/hr IV ONETIME ONE Stop: 08/16/19 12:28 Last Admin: 08/16/19 08:46 Dose: 12.5 mls/hr Dextrose/Sodium Chloride (Dextrose 5%-Normal Saline) 1,000 mls @ 100 mls/hr IV ASDIRECTED [facility] Stop: 08/16/19 13:00 Last Infusion: 08/16/19 12:20 Dose: 20 mls/hr Dextrose/Sodium Chloride (Dextrose 5%-Normal Saline) 1,000 mls @ 20 mls/hr IV ASDIRECTED [facility] Last Admin: 08/17/19 06:33 Dose: 20 mls/hr Multivitamins/Minerals 10 ml/Chromium/Copper/Manganese/Zinc 1 ml/ Amino Ac/ Electrol/Dextrose/Calcium 1,011 mls @ 45 mls/hr IV ONETIME ONE Stop: 08/17/19 11:27 Last Admin: 08/16/19 13:15 Dose: 45 mls/hr Fat Emulsion Intravenous (Intralipid 20%) 500 mls @ 62.5 mls/hr IV MoWeFr [facility] Last Admin: 08/22/19 13:02 Dose: 62.5 mls/hr Adjust Tpn Rate 720 mls @ 60 mls/hr .XX ONETIME ONE Stop: 08/17/19 12:59 Last Admin: 08/17/19 00:56 Dose: 60 mls/hr Multivitamins/Minerals 10 ml/Chromium/Copper/Manganese/Zinc 1 ml/ Amino Ac/ Electrol/Dextrose/Calcium 1,011 mls @ 60 mls/hr IV TITRATE [facility] Stop: 08/18/19 01:50 Last Admin: 08/17/19 08:52 Dose: 60 mls/hr Adjust Tpn Rate 720 mls @ 75 mls/hr .XX ONETIME ONE Stop: 08/17/19 22:35 Last Admin: 08/17/19 14:13 Dose: Not Given Sodium Chloride (Normal Saline) 1,000 mls @ 50 mls/hr IV ASDIRECTED [facility] Last Admin: 08/21/19 17:31 Dose: 50 mls/hr Amino Ac/Electrol/Dextrose/Calcium (Clinimix E 10/11) 1,000 mls @ 75 mls/hr IV TITRATE [facility] Last Infusion: 08/23/19 23:30 Dose: 15 mls/hr Multivitamins/Minerals 10 ml/Chromium/Copper/Manganese/Zinc 1 ml/ Amino Ac/ Electrol/Dextrose/Calcium 1,011 mls @ 75 mls/hr IV TITRATE [facility] Stop: 08/19/19 01:29 Last Admin: 08/18/19 14:35 Dose: 75 mls/hr Magnesium Sulfate/Dextrose (Magnesium Sulfate In D5w 100 Premix) 1 gm in 100 mls @ 100 mls/hr IV ONETIME ONE Stop: 08/19/19 09:59 Last Admin: 08/19/19 09:42 Dose: 100 mls/hr Multivitamins/Minerals 10 ml/Chromium/Copper/Manganese/Zinc 1 ml/ Amino Ac/ Electrol/Dextrose/Calcium 1,011 mls @ 75 mls/hr IV TITRATE [facility] Stop: 08/20/19 07:29 Last Admin: 08/19/19 17:54 Dose: 75 mls/hr Dextrose/Water (Dextrose 10% In Water) 500 mls @ 75 mls/hr IV ASDIRECTED [facility] Last Admin: 08/20/19 07:37 Dose: 75 mls/hr Multivitamins/Minerals 10 ml/Chromium/Copper/Manganese/Zinc 1 ml/ Amino Ac/ Electrol/Dextrose/Calcium 1,011 mls @ 75 mls/hr IV ONETIME ONE Stop: 08/20/19 21:43 Last Admin: 08/20/19 08:26 Dose: 75 mls/hr Magnesium Sulfate 2 gm/ Premix 50 mls @ 25 mls/hr IV ONETIME ONE Stop: 08/20/19 12:59 Last Admin: 08/20/19 11:27 Dose: 25 mls/hr Multivitamins/Minerals 10 ml/Chromium/Copper/Manganese/Zinc 1 ml/ Amino Ac/ Electrol/Dextrose/Calcium 1,011 mls @ 75 mls/hr IV ONETIME ONE Stop: 08/22/19 00:58 Last Admin: 08/21/19 11:51 Dose: 75 mls/hr Multivitamins/Minerals 10 ml/Chromium/Copper/Manganese/Zinc 1 ml/ Amino Ac/ Electrol/Dextrose/Calcium 1,011 mls @ 75 mls/hr IV ONETIME [facility] Stop: 08/23/19 04:29 Last Admin: 08/22/19 15:01 Dose: 75 mls/hr Magnesium Sulfate 4 gm/ Premix 50 mls @ 12.5 mls/hr IV ONETIME ONE Stop: 08/22/19 12:59 Last Admin: 08/22/19 09:29 Dose: 12.5 mls/hr Adjust Tpn Rate 720 mls @ 50 mls/hr .XX ONETIME [facility] Stop: 08/24/19 08:00 Influenza Virus Vaccine (Pharmacy To Dose - Influenza Vaccine) 1 each IM ONETIME ONE Stop: 08/07/19 22:46 Influenza Virus Vaccine (Fluzone High-Dose 2018- Syringe) 180 mcg IM .ONCE ONE Stop: 08/08/19 10:01 Influenza Virus Vaccine (Pharmacy To Dose - Influenza Vaccine) 0 each IM ONETIME ONE Stop: 08/24/19 13:59 Influenza Virus Vaccine (Fluzone High-Dose 2018- Syringe) 180 mcg IM .ONCE ONE Stop: 08/24/19 15:01 Last Admin: 08/24/19 14:23 Dose: 180 mcg Iopamidol (Isovue-300 (61%)) 100 ml IVPUSH ONETIME ONE Stop: 08/11/19 16:42 Last Admin: 08/11/19 16:44 Dose: 100 ml Ipratropium [place] (Atrovent) 0.5 mg NEB Q4HRRT [facility] Last Admin: 08/11/19 13:29 Dose: 0.5 mg Ketamine HCl (Ketalar) Confirm Administered Dose 500 mg .ROUTE .STK-MED ONE Stop: 08/15/19 15:35 Ketorolac Tromethamine (Toradol) Confirm Administered Dose 30 mg .ROUTE .STK- MED ONE Stop: 08/15/19 18:40 Ketorolac Tromethamine (Toradol) 15 mg IVPUSH Q6H PRN PRN Reason: Pain Stop: 08/18/19 00:31 Last Admin: 08/17/19 20:26 Dose: 15 mg Lidocaine HCl (Xylocaine 1%) Confirm Administered Dose 50 ml .ROUTE .STK-MED ONE Stop: 08/15/19 07:11 Last Admin: 08/15/19 15:09 Dose: 4.5 ml Lidocaine HCl (Xylocaine 1%) Confirm Administered Dose 50 ml .ROUTE .STK-MED ONE Stop: 08/15/19 11:28 Lidocaine HCl (Xylocaine 1%) 20 ml INJECT ONETIME ONE Stop: 08/18/19 17:01 Last Admin: 08/18/19 17:49 Dose: 10 ml Lorazepam (Ativan) 1 mg IVPUSH Q2H PRN PRN Reason: Anxiety Last Admin: 08/21/19 09:22 Dose: 1 mg Magnesium Hydroxide (Milk Of Magnesia) 30 ml PO ONETIME ONE Stop: 08/14/19 07:43 Last Admin: 08/14/19 08:58 Dose: 30 ml Methadone HCl (Methadone) 5 mg PO BID [facility] Last Admin: 08/15/19 21:37 Dose: Not Given Midazolam HCl (Versed 1 Mg/Ml) Confirm Administered Dose 2 mg .ROUTE .STK-MED ONE Stop: 08/15/19 12:15 Miscellaneous Medication (Phenylephrine 1 Mg/10 Ml-Ns) Confirm Administered Dose 1 mg IV .STK-MED ONE Stop: 08/15/19 15:05 Miscellaneous Medication (Phenylephrine 1 Mg/10 Ml-Ns) Confirm Administered Dose 1 mg IV .STK-MED ONE Stop: 08/15/19 16:18 Miscellaneous Medication (Phenylephrine 1 Mg/10 Ml-Ns) Confirm Administered Dose 1 mg IV .STK-MED ONE Stop: 08/15/19 17:47 Miscellaneous Medication (Phenylephrine 1 Mg/10 Ml-Ns) Confirm Administered Dose 1 mg IV .STK-MED ONE Stop: 08/15/19 18:34 Neostigmine Methylsulfate (Neostigmine Methylsulfate) Confirm Administered Dose 5 mg .ROUTE .STK-MED ONE Stop: 08/15/19 16:12 Nicotine (Habitrol) 21 mg TRDERM DAILY [facility] Last Admin: 08/20/19 08:26 Dose: 21 mg Benztropine 2mg/2ml (Vial) 0 each IVPUSH BEDTIME [facility] Last Admin: 08/21/19 20:15 Dose: 1 each Ondansetron HCl (Zofran) 4 mg IVPUSH ONETIME ONE Stop: 08/07/19 16:51 Last Admin: 08/07/19 17:20 Dose: 4 mg Ondansetron HCl (Zofran) 4 mg IVPUSH ONETIME ONE Stop: 08/07/19 19:12 Last Admin: 08/07/19 19:51 Dose: 4 mg Ondansetron HCl (Zofran Odt) 4 mg PO Q6H PRN PRN Reason: nausea, able to take PO Last Admin: 08/13/19 09:44 Dose: 4 mg Ondansetron HCl (Zofran) 4 mg IV Q6H [facility] Last Admin: 08/08/19 06:03 Dose: Not Given Ondansetron HCl (Zofran) 4 mg IV Q6H [facility] Last Admin: 08/08/19 12:40 Dose: 4 mg Ondansetron HCl (Zofran) 4 mg IVPUSH Q8H PRN PRN Reason: Nausea/Vomiting Last Admin: 08/13/19 15:04 Dose: 4 mg Ondansetron HCl (Zofran) 4 mg IVPUSH ONETIME PRN PRN Reason: Nausea/Vomiting Stop: 08/15/19 18:00 Ondansetron HCl (Zofran) Confirm Administered Dose 4 mg .ROUTE .STK-MED ONE Stop: 08/15/19 16:13 Oseltamivir Phosphate (Tamiflu) 75 mg PO BID [facility] Stop: 08/12/19 09:01 Last Admin: 08/12/19 09:24 Dose: 75 mg Pharmacy Consult (Consult To Pharmacy) 0 each .XX DAILY PRN PRN Reason: TPN MONITORING Propofol (Diprivan 20 Ml) Confirm Administered Dose 200 mg .ROUTE .STK-MED ONE Stop: 08/15/19 12:15 Risperidone (Risperidal) 2 mg PO BEDTIME [facility] Last Admin: 08/15/19 21:36 Dose: Not Given Risperidone (Risperidal) 1 mg PO DAILY [facility] Last Admin: 08/15/19 10:49 Dose: Not Given Rocuronium [place] (Zemuron) Confirm Administered Dose 50 mg .ROUTE .STK-MED ONE Stop: 08/15/19 12:14 Rocuronium [place] (Zemuron) Confirm Administered Dose 50 mg .ROUTE .STK-MED ONE Stop: 08/15/19 16:10 Sodium Chloride (Saline Flush) 10 ml FLUSH ONETIME ONE Stop: 08/11/19 16:42 Last Admin: 08/11/19 16:46 Dose: 10 ml Trazodone HCl (Trazodone) 50 mg PO BEDTIME [facility] Last Admin: 08/15/19 21:50 Dose: Not Given - Exam Quality Assessment: Reports: DVT Prophylaxis General: Reports: Alert, Oriented, Cooperative, No Acute Distress HEENT: Reports: Pupils Equal, Pupils Reactive, Mucous Membr. Moist/[place] Neck: Reports: Supple, Trachea Midline Lungs: Reports: Clear to Auscultation, Normal Respiratory Effort Cardiovascular: Reports: Regular Rate, Regular Rhythm GI/Abdominal Exam: Normal Bowel Sounds, Soft, No Distention, Tender (Mild near KYRIE drain sites ) (Male) Exam: Deferred Rectal (Males) Exam: Deferred Back Exam: Reports: Normal Inspection, Full Range of Motion Extremities: Normal Inspection, Normal Range of Motion, Non-Tender, No Pedal Edema, Normal Capillary Refill Skin: Reports: Warm, Dry, Intact Wound/Incisions: Reports: Healing Well, No Drainage Neurological: Reports: No New Focal Deficit Psy/Mental Status: Reports: Alert, Normal Affect, Normal Mood
--- NOTE | 2019-08-24 17:46 | PCM.SURGPN ---
- General Info Date of Service: 08/24/19 POD#: 9 Functional Status: Reports: Pain Controlled, Tolerating Diet, Ambulating, Urinating - Review of Systems General: Reports: No Symptoms HEENT: Reports: No Symptoms Pulmonary: Reports: No Symptoms Cardiovascular: Reports: No Symptoms Gastrointestinal: Reports: No Symptoms Genitourinary: Reports: No Symptoms Musculoskeletal: Reports: No Symptoms Skin: Reports: No Symptoms Neurological: Reports: No Symptoms - Patient Data Vitals - Most Recent: Last Vital Signs Temp 97.7 F 08/24/19 14:53 Pulse 96 08/24/19 14:53 Resp 19 08/24/19 14:53 BP 102/60 08/24/19 14:53 Pulse Ox 93 L 08/24/19 14:53 Orthostatic Blood Pressure [ 109/60 Standing] Orthostatic Blood Pressure [ 120/69 Sitting] Orthostatic Blood Pressure [ 120/79 Supine] Weight - Most Recent: 60.373 kg I&O - Last 24 Hours: Intake & Output 08/24/19 08/24/19 08/24/19 06:59 14:59 22:59 Intake Total 490 240 Balance 490 240 Med Orders - Current: Current Medications Acetaminophen (Tylenol) 650 mg PO Q4H PRN PRN Reason: Pain (Mild 1-3)/fever Last Admin: 08/22/19 13:41 Dose: 650 mg Hydrocodone Bitart/Acetaminophen (Alger 325-5 Mg) 1 tab PO Q4H PRN PRN Reason: Pain (moderate 4-6) Last Admin: 08/24/19 06:56 Dose: 1 tab Albuterol/Ipratropium (Duoneb 3.0-0.5 Mg/3 Ml) 3 ml NEB QIDRT PRN PRN Reason: SOB/wheezing Benztropine Mesylate (Cogentin) 1 mg PO BEDTIME [facility] Last Admin: 08/23/19 20:45 Dose: 1 mg Heparin Sodium (Porcine) (Heparin Sodium) 5,000 units SUBCUT Q8H [facility] Last Admin: 08/24/19 09:54 Dose: 5,000 units Hydromorphone HCl (Dilaudid) 1 mg IVPUSH Q3H PRN PRN Reason: Pain Last Admin: 08/23/19 06:57 Dose: 1 mg Lorazepam (Ativan) 0.5 mg IVPUSH Q2H PRN PRN Reason: Anxiety Last Admin: 08/23/19 22:01 Dose: 0.5 mg Methadone HCl (Methadone) 5 mg PO BID [facility] Last Admin: 08/24/19 09:53 Dose: 5 mg Miscellaneous Information (Remove Patch) 1 ea TRDERM DAILY [facility] Last Admin: 08/24/19 09:55 Dose: 1 ea Nicotine (Habitrol) 14 mg TRDERM DAILY [facility] Last Admin: 08/24/19 09:54 Dose: 14 mg Ondansetron HCl (Zofran) 4 mg IVPUSH Q4H PRN PRN Reason: Nausea/Vomiting Last Admin: 08/23/19 02:46 Dose: 4 mg Pantoprazole Sodium (Protonix) 40 mg PO BEDTIME [facility] Last Admin: 08/23/19 20:42 Dose: 40 mg Risperidone (Risperidal) 1 mg PO DAILY [facility] Last Admin: 08/24/19 09:54 Dose: 1 mg Risperidone (Risperidal) 2 mg PO BEDTIME [facility] Last Admin: 08/23/19 20:46 Dose: 2 mg Sodium Chloride (Saline Flush) 10 ml FLUSH ASDIRECTED PRN PRN Reason: Keep Vein Open Last Admin: 08/11/19 16:44 Dose: 10 ml Trazodone HCl (Trazodone) 50 mg PO BEDTIME [facility] Last Admin: 08/23/19 20:46 Dose: 50 mg Discontinued Medications Albuterol (Proventil Neb Soln) 2.5 mg NEB ONETIME PRN PRN Reason: bronchodilation Stop: 08/15/19 18:00 Albuterol/Ipratropium (Duoneb 3.0-0.5 Mg/3 Ml) 3 ml NEB QIDRT [facility] Last Admin: 08/17/19 09:10 Dose: 3 ml Azithromycin (Zithromax) 250 mg PO BEDTIME [facility] Last Admin: 08/11/19 21:06 Dose: 250 mg Benzonatate (Tessalon Perles) 100 mg PO BID [facility] Last Admin: 08/15/19 21:36 Dose: Not Given Benztropine Mesylate (Cogentin) 1 mg PO BEDTIME [facility] Last Admin: 08/15/19 21:37 Dose: Not Given Benztropine Mesylate (Cogentin) 1 mg IVPUSH BEDTIME [facility] Benztropine Mesylate (Benztropine) 1 mg IVPUSH BEDTIME [facility] Stop: 08/21/19 21:01 Last Admin: 08/22/19 20:19 Dose: Not Given Cefazolin Sodium (Ancef) Confirm Administered Dose 2 gm .ROUTE .STK-MED ONE Stop: 08/15/19 15:23 Cefazolin Sodium (Ancef) Confirm Administered Dose 2 gm .ROUTE .STK-MED ONE Stop: 08/15/19 18:13 Cefdinir (Omnicef) 300 mg PO BID [facility] Last Admin: 08/14/19 08:58 Dose: 300 mg Ceftriaxone Sodium (Rocephin) Confirm Administered Dose 2 gm IV .STK-MED ONE Stop: 08/07/19 19:45 Last Admin: 08/07/19 19:51 Dose: Not Given Diatrizoate Meglum/Diatrizoate Sod (Gastrografin 37%) 90 ml PO ONETIME ONE Stop: 08/11/19 16:42 Last Admin: 08/11/19 16:43 Dose: 90 ml Ephedrine Sulfate (Ephedrine Sulfate) 5 mg IVPUSH ASDIRECTED PRN PRN Reason: Hypotension Stop: 08/15/19 18:00 Famotidine (Pepcid) 20 mg IVPUSH BEDTIME [facility] Last Admin: 08/21/19 20:09 Dose: 20 mg Famotidine (Pepcid) 20 mg IVPUSH ONETIME ONE Stop: 08/20/19 10:01 Last Admin: 08/20/19 09:59 Dose: 20 mg Fentanyl (Sublimaze) Confirm Administered Dose 250 mcg .ROUTE .STK-MED ONE Stop: 08/15/19 12:16 Fentanyl (Sublimaze) 50 mcg IVPUSH Q5M PRN PRN Reason: Pain Stop: 08/15/19 18:00 Fentanyl (Sublimaze) Confirm Administered Dose 100 mcg .ROUTE .STK-MED ONE Stop: 08/15/19 17:11 Glycopyrrolate () Confirm Administered Dose 1 mg .ROUTE .STK-MED ONE Stop: 08/15/19 16:12 Guaifenesin (Mucinex) 600 mg PO BID [facility] Last Admin: 08/15/19 21:37 Dose: Not Given Guaifenesin (Mucinex) 600 mg PO BID [facility] Last Admin: 08/08/19 12:51 Dose: Not Given Haloperidol Lactate (Haldol) 5 mg IVPUSH BEDTIME [facility] Last Admin: 08/15/19 21:51 Dose: 5 mg Haloperidol Lactate (Haldol) 5 mg IV ONETIME PRN PRN Reason: Other Stop: 08/16/19 08:00 Haloperidol Lactate (Haldol) 5 mg IVPUSH Q8H [facility] Last Admin: 08/16/19 09:59 Dose: Not Given Haloperidol Lactate (Haldol) 2 mg IVPUSH ONETIME ONE Stop: 08/16/19 09:01 Last Admin: 08/16/19 09:57 Dose: 2 mg Haloperidol Lactate (Haldol) 5 mg IVPUSH BEDTIME [facility] Last Admin: 08/21/19 20:11 Dose: 5 mg Haloperidol Lactate (Haldol) 2 mg IVPUSH 0600,1400 [facility] Last Admin: 08/22/19 06:09 Dose: 2 mg Hydromorphone HCl (Dilaudid) Confirm Administered Dose 0.5 mg .ROUTE .STK-MED ONE Stop: 08/15/19 15:22 Hydromorphone HCl (Dilaudid) 0.5 mg IVPUSH Q15M PRN PRN Reason: Pain (severe 7-10) Stop: 08/15/19 18:00 Hydromorphone HCl (Dilaudid) Confirm Administered Dose 0.5 mg .ROUTE .STK-MED ONE Stop: 08/15/19 16:18 Hydromorphone HCl (Dilaudid) Confirm Administered Dose 0.5 mg .ROUTE .STK-MED ONE Stop: 08/15/19 18:43 Hydromorphone HCl (Dilaudid) 0.5 mg IVPUSH ONETIME ONE Stop: 08/15/19 20:51 Last Admin: 08/15/19 20:59 Dose: 0.5 mg Hydromorphone HCl (Dilaudid) Confirm Administered Dose 0.5 mg .ROUTE .STK-MED ONE Stop: 08/15/19 21:00 Last Admin: 08/15/19 21:34 Dose: Not Given Hydromorphone HCl (Dilaudid) 0.5 mg IVPUSH Q3H PRN PRN Reason: Abdominal Pain Sodium Chloride (Normal Saline) 1,000 mls @ 150 mls/hr IV ASDIRECTED [facility] Last Admin: 08/08/19 06:02 Dose: 150 mls/hr Ceftriaxone Sodium 2 gm/ (Sodium Chloride) 100 mls @ 200 mls/hr IV ONETIME ONE Stop: 08/07/19 20:00 Last Admin: 08/07/19 19:47 Dose: Not Given Magnesium Sulfate 2 gm/ Premix 50 mls @ 25 mls/hr IV ONETIME ONE Stop: 08/07/19 21:42 Last Admin: 08/07/19 20:24 Dose: 25 mls/hr Ceftriaxone Sodium 2 gm/ (Sodium Chloride) 100 mls @ 200 mls/hr IV Q24H [facility] Stop: 08/07/19 20:15 Last Admin: 08/07/19 19:49 Dose: 200 mls/hr Sodium Chloride (Normal Saline) Confirm Administered Dose 100 mls @ as directed .ROUTE .[facility] ONE Stop: 08/07/19 19:45 Last Admin: 08/07/19 19:51 Dose: Not Given Azithromycin 500 mg/ Sodium (Chloride) 250 mls @ 250 mls/hr IV Q24H [facility] Last Admin: 08/10/19 22:08 Dose: 250 mls/hr Ceftriaxone Sodium 2 gm/ (Sodium Chloride) 100 mls @ 200 mls/hr IV Q24H [facility] Last Admin: 08/10/19 21:25 Dose: 200 mls/hr Sodium Chloride (Normal Saline) 1,000 mls @ 75 mls/hr IV ASDIRECTED [facility] Sodium Phosphate 30 mmole/ (Sodium Chloride) 260 mls @ 130 mls/hr IV Q2H [facility] Stop: 08/10/19 15:59 Last Admin: 08/10/19 15:12 Dose: 130 mls/hr Magnesium Sulfate 2 gm/ Premix 50 mls @ 25 mls/hr IV ONETIME ONE Stop: 08/11/19 11:08 Last Admin: 08/11/19 09:38 Dose: 25 mls/hr Sodium Chloride (Normal Saline) 1,000 mls @ 75 mls/hr IV ASDIRECTED [facility] Last Admin: 08/12/19 09:24 Dose: 75 mls/hr Sodium Chloride (Normal Saline) Confirm Administered Dose 1,000 mls @ as directed .ROUTE .[facility] ONE Stop: 08/11/19 17:34 Last Admin: 08/11/19 17:43 Dose: Not Given Dextrose/Sodium Chloride (Dextrose 5%-Normal Saline) 1,000 mls @ 100 mls/hr IV ASDIRECTED [facility] Last Infusion: 08/13/19 12:35 Dose: 50 mls/hr Dextrose/Sodium Chloride (Dextrose 5%-Normal Saline) 1,000 mls @ 50 mls/hr IV ASDIRECTED [facility] Dextrose/Sodium Chloride (Dextrose 5%-Normal Saline) 1,000 mls @ 125 mls/hr IV ASDIRECTED [facility] Last Admin: 08/16/19 01:04 Dose: 125 mls/hr Lidocaine HCl (Xylocaine-Mpf 1%) Confirm Administered Dose 4 mls @ as directed .ROUTE .[facility] ONE Stop: 08/15/19 14:43 Lactated Ringer's (Ringers, Lactated) Confirm Administered Dose 1,000 mls @ as directed .ROUTE .[facility] ONE Stop: 08/15/19 15:18 Lactated Ringer's (Ringers, Lactated) Confirm Administered Dose 1,000 mls @ as directed .ROUTE .[facility] ONE Stop: 08/15/19 15:18 Phenylephrine HCl 1 mg/ Sodium (Chloride) 10.1 mls @ 1 mls/sec IV TITRATE [facility]; Protocol Stop: 08/15/19 18:00 Lactated Ringer's (Ringers, Lactated) Confirm Administered Dose 1,000 mls @ as directed .ROUTE .[facility] ONE Stop: 08/15/19 15:57 Lactated Ringer's (Ringers, Lactated) Confirm Administered Dose 1,000 mls @ as directed .ROUTE .[facility] ONE Stop: 08/15/19 18:09 Magnesium Sulfate 2 gm/ Premix 50 mls @ 25 mls/hr IV ONETIME ONE Stop: 08/16/19 10:10 Last Admin: 08/16/19 08:45 Dose: Not Given Magnesium Sulfate 4 gm/ Premix 50 mls @ 12.5 mls/hr IV ONETIME ONE Stop: 08/16/19 12:28 Last Admin: 08/16/19 08:46 Dose: 12.5 mls/hr Dextrose/Sodium Chloride (Dextrose 5%-Normal Saline) 1,000 mls @ 100 mls/hr IV ASDIRECTED [facility] Stop: 08/16/19 13:00 Last Infusion: 08/16/19 12:20 Dose: 20 mls/hr Dextrose/Sodium Chloride (Dextrose 5%-Normal Saline) 1,000 mls @ 20 mls/hr IV ASDIRECTED [facility] Last Admin: 08/17/19 06:33 Dose: 20 mls/hr Multivitamins/Minerals 10 ml/Chromium/Copper/Manganese/Zinc 1 ml/ Amino Ac/ Electrol/Dextrose/Calcium 1,011 mls @ 45 mls/hr IV ONETIME ONE Stop: 08/17/19 11:27 Last Admin: 08/16/19 13:15 Dose: 45 mls/hr Fat Emulsion Intravenous (Intralipid 20%) 500 mls @ 62.5 mls/hr IV MoWeFr [facility] Last Admin: 08/22/19 13:02 Dose: 62.5 mls/hr Adjust Tpn Rate 720 mls @ 60 mls/hr .XX ONETIME ONE Stop: 08/17/19 12:59 Last Admin: 08/17/19 00:56 Dose: 60 mls/hr Multivitamins/Minerals 10 ml/Chromium/Copper/Manganese/Zinc 1 ml/ Amino Ac/ Electrol/Dextrose/Calcium 1,011 mls @ 60 mls/hr IV TITRATE [facility] Stop: 08/18/19 01:50 Last Admin: 08/17/19 08:52 Dose: 60 mls/hr Adjust Tpn Rate 720 mls @ 75 mls/hr .XX ONETIME ONE Stop: 08/17/19 22:35 Last Admin: 08/17/19 14:13 Dose: Not Given Sodium Chloride (Normal Saline) 1,000 mls @ 50 mls/hr IV ASDIRECTED [facility] Last Admin: 08/21/19 17:31 Dose: 50 mls/hr Amino Ac/Electrol/Dextrose/Calcium (Clinimix E 5/20) 1,000 mls @ 75 mls/hr IV TITRATE [facility] Last Infusion: 08/23/19 23:30 Dose: 15 mls/hr Multivitamins/Minerals 10 ml/Chromium/Copper/Manganese/Zinc 1 ml/ Amino Ac/ Electrol/Dextrose/Calcium 1,011 mls @ 75 mls/hr IV TITRATE [facility] Stop: 08/19/19 01:29 Last Admin: 08/18/19 14:35 Dose: 75 mls/hr Magnesium Sulfate/Dextrose (Magnesium Sulfate In D5w 100 Premix) 1 gm in 100 mls @ 100 mls/hr IV ONETIME ONE Stop: 08/19/19 09:59 Last Admin: 08/19/19 09:42 Dose: 100 mls/hr Multivitamins/Minerals 10 ml/Chromium/Copper/Manganese/Zinc 1 ml/ Amino Ac/ Electrol/Dextrose/Calcium 1,011 mls @ 75 mls/hr IV TITRATE [facility] Stop: 08/20/19 07:29 Last Admin: 08/19/19 17:54 Dose: 75 mls/hr Dextrose/Water (Dextrose 10% In Water) 500 mls @ 75 mls/hr IV ASDIRECTED [facility] Last Admin: 08/20/19 07:37 Dose: 75 mls/hr Multivitamins/Minerals 10 ml/Chromium/Copper/Manganese/Zinc 1 ml/ Amino Ac/ Electrol/Dextrose/Calcium 1,011 mls @ 75 mls/hr IV ONETIME ONE Stop: 08/20/19 21:43 Last Admin: 08/20/19 08:26 Dose: 75 mls/hr Magnesium Sulfate 2 gm/ Premix 50 mls @ 25 mls/hr IV ONETIME ONE Stop: 08/20/19 12:59 Last Admin: 08/20/19 11:27 Dose: 25 mls/hr Multivitamins/Minerals 10 ml/Chromium/Copper/Manganese/Zinc 1 ml/ Amino Ac/ Electrol/Dextrose/Calcium 1,011 mls @ 75 mls/hr IV ONETIME ONE Stop: 08/22/19 00:58 Last Admin: 08/21/19 11:51 Dose: 75 mls/hr Multivitamins/Minerals 10 ml/Chromium/Copper/Manganese/Zinc 1 ml/ Amino Ac/ Electrol/Dextrose/Calcium 1,011 mls @ 75 mls/hr IV ONETIME [facility] Stop: 08/23/19 04:29 Last Admin: 08/22/19 15:01 Dose: 75 mls/hr Magnesium Sulfate 4 gm/ Premix 50 mls @ 12.5 mls/hr IV ONETIME ONE Stop: 08/22/19 12:59 Last Admin: 08/22/19 09:29 Dose: 12.5 mls/hr Adjust Tpn Rate 720 mls @ 50 mls/hr .XX ONETIME [facility] Stop: 08/24/19 08:00 Influenza Virus Vaccine (Pharmacy To Dose - Influenza Vaccine) 1 each IM ONETIME ONE Stop: 08/07/19 22:46 Influenza Virus Vaccine (Fluzone High-Dose Syringe) 180 mcg IM .ONCE ONE Stop: 08/08/19 10:01 Influenza Virus Vaccine (Pharmacy To Dose - Influenza Vaccine) 0 each IM ONETIME ONE Stop: 08/24/19 13:59 Influenza Virus Vaccine (Fluzone High-Dose Syringe) 180 mcg IM .ONCE ONE Stop: 08/24/19 15:01 Last Admin: 08/24/19 14:23 Dose: 180 mcg Iopamidol (Isovue-300 (61%)) 100 ml IVPUSH ONETIME ONE Stop: 08/11/19 16:42 Last Admin: 08/11/19 16:44 Dose: 100 ml Ipratropium [place] (Atrovent) 0.5 mg NEB Q4HRRT [facility] Last Admin: 08/11/19 13:29 Dose: 0.5 mg Ketamine HCl (Ketalar) Confirm Administered Dose 500 mg .ROUTE .STK-MED ONE Stop: 08/15/19 15:35 Ketorolac Tromethamine (Toradol) Confirm Administered Dose 30 mg .ROUTE .STK- MED ONE Stop: 08/15/19 18:40 Ketorolac Tromethamine (Toradol) 15 mg IVPUSH Q6H PRN PRN Reason: Pain Stop: 08/18/19 00:31 Last Admin: 08/17/19 20:26 Dose: 15 mg Lidocaine HCl (Xylocaine 1%) Confirm Administered Dose 50 ml .ROUTE .STK-MED ONE Stop: 08/15/19 07:11 Last Admin: 08/15/19 15:09 Dose: 4.5 ml Lidocaine HCl (Xylocaine 1%) Confirm Administered Dose 50 ml .ROUTE .STK-MED ONE Stop: 08/15/19 11:28 Lidocaine HCl (Xylocaine 1%) 20 ml INJECT ONETIME ONE Stop: 08/18/19 17:01 Last Admin: 08/18/19 17:49 Dose: 10 ml Lorazepam (Ativan) 1 mg IVPUSH Q2H PRN PRN Reason: Anxiety Last Admin: 08/21/19 09:22 Dose: 1 mg Magnesium Hydroxide (Milk Of Magnesia) 30 ml PO ONETIME ONE Stop: 08/14/19 07:43 Last Admin: 08/14/19 08:58 Dose: 30 ml Methadone HCl (Methadone) 5 mg PO BID [facility] Last Admin: 08/15/19 21:37 Dose: Not Given Midazolam HCl (Versed 1 Mg/Ml) Confirm Administered Dose 2 mg .ROUTE .STK-MED ONE Stop: 08/15/19 12:15 Miscellaneous Medication (Phenylephrine 1 Mg/10 Ml-Ns) Confirm Administered Dose 1 mg IV .STK-MED ONE Stop: 08/15/19 15:05 Miscellaneous Medication (Phenylephrine 1 Mg/10 Ml-Ns) Confirm Administered Dose 1 mg IV .STK-MED ONE Stop: 08/15/19 16:18 Miscellaneous Medication (Phenylephrine 1 Mg/10 Ml-Ns) Confirm Administered Dose 1 mg IV .STK-MED ONE Stop: 08/15/19 17:47 Miscellaneous Medication (Phenylephrine 1 Mg/10 Ml-Ns) Confirm Administered Dose 1 mg IV .STK-MED ONE Stop: 08/15/19 18:34 Neostigmine Methylsulfate (Neostigmine Methylsulfate) Confirm Administered Dose 5 mg .ROUTE .STK-MED ONE Stop: 08/15/19 16:12 Nicotine (Habitrol) 21 mg TRDERM DAILY [facility] Last Admin: 08/20/19 08:26 Dose: 21 mg Benztropine 2mg/2ml (Vial) 0 each IVPUSH BEDTIME [facility] Last Admin: 08/21/19 20:15 Dose: 1 each Ondansetron HCl (Zofran) 4 mg IVPUSH ONETIME ONE Stop: 08/07/19 16:51 Last Admin: 08/07/19 17:20 Dose: 4 mg Ondansetron HCl (Zofran) 4 mg IVPUSH ONETIME ONE Stop: 08/07/19 19:12 Last Admin: 08/07/19 19:51 Dose: 4 mg Ondansetron HCl (Zofran Odt) 4 mg PO Q6H PRN PRN Reason: nausea, able to take PO Last Admin: 08/13/19 09:44 Dose: 4 mg Ondansetron HCl (Zofran) 4 mg IV Q6H [facility] Last Admin: 08/08/19 06:03 Dose: Not Given Ondansetron HCl (Zofran) 4 mg IV Q6H [facility] Last Admin: 08/08/19 12:40 Dose: 4 mg Ondansetron HCl (Zofran) 4 mg IVPUSH Q8H PRN PRN Reason: Nausea/Vomiting Last Admin: 08/13/19 15:04 Dose: 4 mg Ondansetron HCl (Zofran) 4 mg IVPUSH ONETIME PRN PRN Reason: Nausea/Vomiting Stop: 08/15/19 18:00 Ondansetron HCl (Zofran) Confirm Administered Dose 4 mg .ROUTE .STK-MED ONE Stop: 08/15/19 16:13 Oseltamivir Phosphate (Tamiflu) 75 mg PO BID [facility] Stop: 08/12/19 09:01 Last Admin: 08/12/19 09:24 Dose: 75 mg Pharmacy Consult (Consult To Pharmacy) 0 each .XX DAILY PRN PRN Reason: TPN MONITORING Propofol (Diprivan 20 Ml) Confirm Administered Dose 200 mg .ROUTE .STK-MED ONE Stop: 08/15/19 12:15 Risperidone (Risperidal) 2 mg PO BEDTIME [facility] Last Admin: 08/15/19 21:36 Dose: Not Given Risperidone (Risperidal) 1 mg PO DAILY [facility] Last Admin: 08/15/19 10:49 Dose: Not Given Rocuronium [place] (Zemuron) Confirm Administered Dose 50 mg .ROUTE .STK-MED ONE Stop: 08/15/19 12:14 Rocuronium [place] (Zemuron) Confirm Administered Dose 50 mg .ROUTE .STK-MED ONE Stop: 08/15/19 16:10 Sodium Chloride (Saline Flush) 10 ml FLUSH ONETIME ONE Stop: 08/11/19 16:42 Last Admin: 08/11/19 16:46 Dose: 10 ml Trazodone HCl (Trazodone) 50 mg PO BEDTIME [facility] Last Admin: 08/15/19 21:50 Dose: Not Given - Exam Wound/Incisions: Healing Well General: Alert, Oriented, Cooperative Lungs: Clear to Auscultation, Normal Respiratory Effort Cardiovascular: Regular Rate, Regular Rhythm, No Murmurs GI/Abdominal Exam: Normal Bowel Sounds, Soft, Non-Tender, No Organomegaly, No Distention, No Mass Extremities: Normal Inspection Skin: Warm, Dry, Intact Sepsis Event Note - Evaluation Sepsis Screening Result: No Definite Risk - Focused Exam Vital Signs: Vital Signs Temp Pulse Resp BP Pulse Ox 08/24/19 14:53 97.7 F 96 19 102/60 93 L 08/24/19 08:02 97.9 F 92 21 H 114/64 95 Date Exam was Performed: 08/24/19 Time Exam was Performed: 17:40 - Problem List Review Problem List Initiated/Reviewed/Updated: No - My Orders Last 24 Hours: Active Orders 24 hr Category Date Time Status Influenza Vaccine Charge [RC] .DISCHARGE Care 08/24/19 13:59 Active Ready for Discharge [RC] PER UNIT ROUTINE Care 08/24/19 14:48 Active Regular Diet [DIET] Diet 08/24/19 Breakfast Active Medication Orders Acetaminophen (Tylenol) 650 mg PO Q4H PRN PRN Reason: Pain (Mild 1-3)/fever Last Admin: 08/22/19 13:41 Dose: 650 mg Admin: 08/13/19 09:43 Dose: 650 mg Hydrocodone Bitart/Acetaminophen (Alger 325-5 Mg) 1 tab PO Q4H PRN PRN Reason: Pain (moderate 4-6) Last Admin: 08/24/19 06:56 Dose: 1 tab Admin: 08/24/19 02:35 Dose: 1 tab Admin: 08/23/19 19:36 Dose: 1 tab Admin: 08/23/19 15:13 Dose: 1 tab Albuterol/Ipratropium (Duoneb 3.0-0.5 Mg/3 Ml) 3 ml NEB QIDRT PRN PRN Reason: SOB/wheezing Benztropine Mesylate (Cogentin) 1 mg PO BEDTIME [facility] Last Admin: 08/23/19 20:45 Dose: 1 mg Admin: 08/22/19 21:11 Dose: 1 mg Heparin Sodium (Porcine) (Heparin Sodium) 5,000 units SUBCUT Q8H [facility] Last Admin: 08/24/19 09:54 Dose: 5,000 units Admin: 08/24/19 02:34 Dose: 5,000 units Admin: 08/23/19 17:13 Dose: 5,000 units Admin: 08/23/19 08:40 Dose: 5,000 units Admin: 08/23/19 00:57 Dose: 5,000 units Admin: 08/22/19 16:33 Dose: 5,000 units Admin: 08/22/19 09:28 Dose: 5,000 units Admin: 08/22/19 01:36 Dose: 5,000 units Admin: 08/21/19 17:32 Dose: 5,000 units Admin: 08/21/19 08:23 Dose: 5,000 units Admin: 08/21/19 01:32 Dose: Admin: 08/20/19 23:41 Dose: 5,000 units Admin: 08/20/19 17:22 Dose: Not Given Admin: 08/20/19 08:32 Dose: 5,000 units Admin: 08/20/19 00:14 Dose: 5,000 units Admin: 08/19/19 16:47 Dose: Admin: 08/19/19 08:32 Dose: 5,000 units Admin: 08/19/19 00:01 Dose: 5,000 units Admin: 08/18/19 16:17 Dose: Admin: 08/18/19 08:11 Dose: 5,000 units Hydromorphone HCl (Dilaudid) 1 mg IVPUSH Q3H PRN PRN Reason: Pain Last Admin: 08/23/19 06:57 Dose: 1 mg Admin: 08/22/19 22:05 Dose: 1 mg Admin: 08/22/19 18:12 Dose: 1 mg Admin: 08/22/19 14:29 Dose: 1 mg Admin: 08/22/19 09:30 Dose: 1 mg Admin: 08/22/19 04:28 Dose: 1 mg Admin: 08/21/19 23:28 Dose: 1 mg Admin: 08/21/19 15:19 Dose: 1 mg Admin: 08/21/19 08:18 Dose: 1 mg Admin: 08/21/19 04:57 Dose: 1 mg Admin: 08/20/19 23:40 Dose: 1 mg Admin: 08/20/19 18:46 Dose: 1 mg Admin: 08/20/19 15:53 Dose: 1 mg Admin: 08/20/19 08:55 Dose: 1 mg Admin: 08/20/19 05:57 Dose: 1 mg Admin: 08/20/19 01:53 Dose: 1 mg Admin: 08/19/19 20:48 Dose: 1 mg Admin: 08/19/19 14:05 Dose: 1 mg Admin: 08/19/19 09:42 Dose: 1 mg Admin: 08/19/19 06:05 Dose: 1 mg Admin: 08/19/19 01:26 Dose: 1 mg Admin: 08/18/19 17:58 Dose: 1 mg Admin: 08/18/19 11:51 Dose: 1 mg Admin: 08/18/19 09:17 Dose: 1 mg Admin: 08/17/19 14:49 Dose: 1 mg Admin: 08/16/19 18:55 Dose: 1 mg Admin: 08/16/19 15:10 Dose: 1 mg Admin: 08/16/19 08:15 Dose: 1 mg Admin: 08/16/19 00:57 Dose: 1 mg Admin: 08/15/19 21:57 Dose: 1 mg Lorazepam (Ativan) 0.5 mg IVPUSH Q2H PRN PRN Reason: Anxiety Last Admin: 08/23/19 22:01 Dose: 0.5 mg Admin: 08/22/19 16:32 Dose: 0.5 mg Admin: 08/21/19 23:33 Dose: 0.5 mg Admin: 08/21/19 19:41 Dose: 0.5 mg Methadone HCl (Methadone) 5 mg PO BID [facility] Last Admin: 08/24/19 09:53 Dose: 5 mg Admin: 08/23/19 20:43 Dose: 5 mg Admin: 08/23/19 08:38 Dose: 5 mg Admin: 08/22/19 21:12 Dose: 5 mg Miscellaneous Information (Remove Patch) 1 ea TRDERM DAILY [facility] Last Admin: 08/24/19 09:55 Dose: 1 ea Admin: 08/23/19 08:42 Dose: 1 ea Admin: 08/22/19 09:39 Dose: 1 ea Admin: 08/21/19 08:50 Dose: Admin: 08/20/19 08:36 Dose: 1 ea Admin: 08/19/19 08:35 Dose: 1 ea Admin: 08/18/19 11:31 Dose: 1 ea Nicotine (Habitrol) 14 mg TRDERM DAILY [facility] Last Admin: 08/24/19 09:54 Dose: 14 mg Admin: 08/23/19 08:37 Dose: 14 mg Admin: 08/22/19 09:28 Dose: 14 mg Admin: 08/21/19 08:20 Dose: 14 mg Ondansetron HCl (Zofran) 4 mg IVPUSH Q4H PRN PRN Reason: Nausea/Vomiting Last Admin: 08/23/19 02:46 Dose: 4 mg Admin: 08/22/19 19:44 Dose: 4 mg Admin: 08/18/19 12:30 Dose: 4 mg Admin: 08/18/19 05:33 Dose: 4 mg Admin: 08/18/19 00:20 Dose: 4 mg Admin: 08/17/19 15:51 Dose: 4 mg Admin: 08/13/19 21:01 Dose: 4 mg Pantoprazole Sodium (Protonix) 40 mg PO BEDTIME [facility] Last Admin: 08/23/19 20:42 Dose: 40 mg Admin: 08/22/19 21:12 Dose: 40 mg Risperidone (Risperidal) 1 mg PO DAILY [facility] Last Admin: 08/24/19 09:54 Dose: 1 mg Admin: 08/23/19 08:40 Dose: 1 mg Risperidone (Risperidal) 2 mg PO BEDTIME [facility] Last Admin: 08/23/19 20:46 Dose: 2 mg Admin: 08/22/19 21:11 Dose: 2 mg Sodium Chloride (Saline Flush) 10 ml FLUSH ASDIRECTED PRN PRN Reason: Keep Vein Open Last Admin: 08/11/19 16:44 Dose: 10 ml Admin: 08/11/19 16:43 Dose: 10 ml Admin: 08/07/19 17:21 Dose: 10 ml Trazodone HCl (Trazodone) 50 mg PO BEDTIME [facility] Last Admin: 08/23/19 20:46 Dose: 50 mg Admin: 08/22/19 21:12 Dose: 50 mg - Plan Plan (Free Text/Narrative):: Patient had pSBO s/p ex lap, SANTANA, excision of the RUQ mass. Progressed well. Tolerated regular diet, ambulating, doing great. - dc TPN and dc CVC. Continue blood sugar checks until TPN is weaned off. - continue reg diet - drains were removed yesterday - dc home today with home health to visit the patient and evaluate incisions, drain sites, and well being of the patient as the patient lives alone and will be on opioid pain medications. - follow up with me in 7 days for paul removal
== END 2019-08-24 17:00 | disposition home health service (06) | DRG 335 ==
LOC: JD.ED 16:15 → JD.MS 21:29
PROVIDERS: ADMIT Surgery; ATTEND Surgery
PROC: 8E0ZXY6 Isolation (ICD-10-PCS; 2019-08-07)
PROC: 0DN80ZZ Release Small Intestine, Open Approach (ICD-10-PCS; principal; 2019-08-15)
PROC: 0WBF0ZZ Excision of Abdominal Wall, Open Approach (ICD-10-PCS; 2019-08-15)
PROC: 05HM33Z Insertion of Infusion Device into Right Internal Jugular Vein, Percutaneous Approach (ICD-10-PCS; 2019-08-15)
PROC: B543ZZA Ultrasonography of Right Jugular Veins, Guidance (ICD-10-PCS; 2019-08-15)
DX: K56.51 Intestinal adhesions [bands], with partial obstruction (principal); J18.9 Pneumonia, unspecified organism; J96.01 Acute respiratory failure with hypoxia; E43 Unspecified severe protein-calorie malnutrition; E87.1 Hypo-osmolality and hyponatremia; K74.60 Unspecified cirrhosis of liver; F11.20 Opioid dependence, uncomplicated; J93.9 Pneumothorax, unspecified; K56.7 Ileus, unspecified; G89.29 Other chronic pain; E88.09 Other disorders of plasma-protein metabolism, not elsewhere classified; E83.42 Hypomagnesemia; E83.39 Other disorders of phosphorus metabolism; R91.1 Solitary pulmonary nodule; D75.89 Other specified diseases of blood and blood-forming organs; F20.9 Schizophrenia, unspecified; J43.9 Emphysema, unspecified; F17.210 Nicotine dependence, cigarettes, uncomplicated; Z53.31 Laparoscopic surgical procedure converted to open procedure; Z79.899 Other long term (current) drug therapy
CPT/HCPCS: 36415; 36600; 71046; 80053; 81001; 83605; 83735; 84100; 84145; 85025; 85610; 85730; 86140; 87040 ×2; 96361; 96365; 96367; 96375; 96376; 99285; J0696; J2405 ×2; J3475; J7030; J7050; 00840; 71045; 71045-26; 71250; 71250-26; 71260; 71260-26; 74018; 74018-26; 74019; 74019-26; 74177; 74177-26; 80048; 82040; 82607; 82746; 82803; 82962; 84134; 84484; 86850; 86900; 86901; 86922; 88305; 90662; 92610-GN; 93005; 94640; 94667; 94668; 94761; 97110-GP; 97116-GP; 97162-GP; 97165-GO; 97530-GP; 97535-GO; 99284; A9270-GY; G0008; J0330; J0456; J0515; J0690; J1170; J1630; J1644; J1885; J2001; J2060; J2250; J2370; J2704; J2710; J3010; J3490; J7042; J7120; J7620-GY; Q9967

== ENCOUNTER 2024-06-23 18:34 | Inpatient (IN) | payer MEDICARE, SELFPAY ==
[2024-06-23] MEDS: Diltiazem 25 MG/5 ML SDV IVPUSH ONE (18:38)
[2024-06-23] MEDS: Adenosine 6 MG/2 ML SDV IVPUSH ONE ×2 (18:50→19:00)
[2024-06-23] MEDS: Adenosine 12 MG/4 ML SDV IVPUSH ONE (18:53)
[2024-06-23] MEDS: Sodium Chloride 0.9% 1,000 ML IV ONE ×2 (18:54→19:45)
[2024-06-23] MEDS: Sodium Chloride 0.9% 10 ML Syringe FLUSH PRN (18:55)
[2024-06-23] MEDS: Diltiazem 125 MG in Sodium Chloride 0.9% 100 ML IV SCH (18:55)
[2024-06-23] MEDS: Levalbuterol HCl 1.25 MG/3 ML Neb NEB ONE ×2 (19:10→19:18)
[2024-06-23 19:17] LABS: BASOPHILS PERCENT AUTO 0.3 % (0.0-1.0); EOSINOPHILS ABSOLUTE AUTO 0.1 K/mm3 (0.0-0.4); EOSINOPHILS PERCENT AUTO 0.6 % (0.0-6.0); HEMATOCRIT 51.7 % (42.0-52.0); HEMOGLOBIN 16.4 gm/dl (14.0-18.0); IMMATURE GRAN ABSOLUTE AUTO 0.07 K/mm3 (0.00-0.05); IMMATURE GRAN PERCENT AUTO 0.7 % (0.0-0.4); LYMPHOCYTES ABSOLUTE AUTO 1.3 K/mm3 (1.0-4.8); LYMPHOCYTES PERCENT AUTO 12.5 % (24.0-44.0); MEAN CORPUSCULAR HEMOGLOBIN 33.9 pg (28.0-32.0); MEAN CORPUSCULAR HGB CONC 31.7 g/dl (32.0-36.0); MEAN CORPUSCULAR VOLUME 106.8 fl (83.0-99.0); MEAN PLATELET VOLUME 9.5 fl (9.4-12.4); MONOCYTES PERCENT AUTO 9.4 % (0.0-8.0); NEUTROPHILS ABSOLUTE AUTO 8.1 K/mm3 (1.8-7.7); NEUTROPHILS PERCENT AUTO 76.5 % (41.0-71.0); PLATELET COUNT,PLT 158 K/mm3 (150-400); RED BLOOD CELL COUNT 4.84 M/mm3 (4.52-5.90); WHITE BLOOD CELL COUNT,WBC 10.52 K/mm3 (3.9-11.3)
[2024-06-23] MEDS: LORazepam 2 MG/ML SDV IVPUSH STA (19:24)
[2024-06-23] MEDS: methylPREDNISolone Sodium Succinate 125 MG/2 ML SDV IVPUSH ONE (19:27)
[2024-06-23] MEDS: Amiodarone 150 MG/100 ML 100 ML IV ONE (19:33)
[2024-06-23 19:49] LABS: A/G RATIO 1.5 (1-2); ALANINE AMINOTRANSFERASE,ALT 45 U/L (16-63); ALBUMIN 3.7 g/dl (3.4-5.0); ALKALINE PHOSPHATASE 67 U/L (46-116); ASPARTATE AMNIOTRANSFERASE,AST 27 U/L (15-37); BLOOD UREA NITROGEN,BUN 24 mg/dL (7-18); BUN/CREATININE RATIO 26.7 (14-18); CALCIUM 8.3 mg/dL (8.5-10.1); CARBON DIOXIDE,CO2 37 mEq/L (21-32); CHLORIDE,CL 105 mEq/L (98-107); CREATININE 0.9 mg/dL (0.7-1.3); ESTIMATED GFR 89 mL/min (>60); GLUCOSE RANDOM 130 mg/dL (70-99); MAGNESIUM 2.4 mg/dL (1.8-2.4); PROTEIN TOTAL,TP 6.2 g/dl (6.4-8.2); SODIUM,NA 142 mEq/L (136-145); TROPONIN I HIGH SENSITIVITY 42 pg/mL (<=76); TSH 1.593 uIU/mL (0.358-3.74)
[2024-06-23] MEDS: Doxycycline 100 MG in Sodium Chloride 0.9% 100 ML IV ONE (20:25)
[2024-06-23] MEDS: cefTRIAXone 500 MG Vial IVPUSH ONE (20:26)
[2024-06-23 20:29] LABS: BASE EXCESS ARTERIAL -1.5 (-2-2.0); O2 SATURATION ARTERIAL 90.2 % (96.0-97.0)
[2024-06-23] MEDS: Ondansetron 4 MG/2 ML SDV IVPUSH ONE (20:29)
[2024-06-23 20:32] LABS: PCO2 ARTERIAL 85.8 mmHg (35.0-45.0)
[2024-06-23] MEDS: Amiodarone 360 MG/200 ML 360 MG/200 ML BAG IV ONE (20:44)
[2024-06-23] MEDS: Sodium Chloride 0.9% 1,000 ML ONE (20:48)
[2024-06-23] MEDS: Albuterol/Ipratropium 3.0-0.5 MG/3 ML Neb Soln NEB SCH (22:09)
[2024-06-23] MEDS: Methadone 5 MG Tab PO SCH (22:14)
[2024-06-23] MEDS ORDERED: Acetaminophen 325 MG Tab PO PRN (22:23)
[2024-06-24 00:18] LABS: BASE EXCESS ARTERIAL -0.7 (-2-2.0); BICARBONATE,ARTERIAL 31.6 meq/L (22.0-26.0); O2 SATURATION ARTERIAL 90.7 % (96.0-97.0)
[2024-06-24 00:19] LABS: PCO2 ARTERIAL 91.4 mmHg (35.0-45.0)
[2024-06-24] MEDS: Sodium Chloride 0.9% 1,000 ML IV SCH (01:32)
[2024-06-24 01:46] LABS: INR 1.25; PROTHROMBIN TIME 13.1 SECONDS (9.7-12.0)
[2024-06-24 01:47] LABS: PTT,PARTIAL THROMBOPLSTIN TIME 30.6 SECONDS (21.7-31.4)
[2024-06-24 03:11] LABS: BASE EXCESS ARTERIAL 1.7 (-2-2.0); BICARBONATE,ARTERIAL 32.7 meq/L (22.0-26.0); O2 SATURATION ARTERIAL 91.1 % (96.0-97.0)
[2024-06-24 03:13] LABS: PCO2 ARTERIAL 86.6 mmHg (35.0-45.0)
[2024-06-24 04:58] LABS: BASOPHILS PERCENT AUTO 0.1 % (0.0-1.0); HEMATOCRIT 46.1 % (42.0-52.0); IMMATURE GRAN ABSOLUTE AUTO 0.05 K/mm3 (0.00-0.05); IMMATURE GRAN PERCENT AUTO 0.7 % (0.0-0.4); LYMPHOCYTES ABSOLUTE AUTO 0.1 K/mm3 (1.0-4.8); LYMPHOCYTES PERCENT AUTO 1.4 % (24.0-44.0); MEAN CORPUSCULAR HEMOGLOBIN 33.3 pg (28.0-32.0); MEAN CORPUSCULAR HGB CONC 31.2 g/dl (32.0-36.0); MEAN CORPUSCULAR VOLUME 106.7 fl (83.0-99.0); MEAN PLATELET VOLUME 9.8 fl (9.4-12.4); MONOCYTES ABSOLUTE AUTO 0.1 K/mm3 (0.0-0.8); MONOCYTES PERCENT AUTO 1.2 % (0.0-8.0); NEUTROPHILS ABSOLUTE AUTO 6.7 K/mm3 (1.8-7.7); NEUTROPHILS PERCENT AUTO 96.6 % (41.0-71.0); PLATELET COUNT,PLT 132 K/mm3 (150-400); RED BLOOD CELL COUNT 4.32 M/mm3 (4.52-5.90)
[2024-06-24 05:10] LABS: INR 1.29; PROTHROMBIN TIME 13.4 SECONDS (9.7-12.0)
[2024-06-24 05:32] LABS: A/G RATIO 1.4 (1-2); ALBUMIN 2.9 g/dl (3.4-5.0); ANION GAP 6.4 (5-15); BILIRUBIN TOTAL 0.5 mg/dL (0.2-1.0); BUN/CREATININE RATIO 27.5 (14-18); CALCIUM 7.7 mg/dL (8.5-10.1); CREATININE 0.8 mg/dL (0.7-1.3); EST CRCL DRUG DOSING (CG) 75.14 mL/min; POTASSIUM,K 5.4 mEq/L (3.5-5.1)
[2024-06-24 06:01] LABS: HEMOGLOBIN 14.4 gm/dl (14.0-18.0)
[2024-06-24 07:16] LABS: SLIDE REVIEW ABNORMAL SMEAR
[2024-06-24] MEDS: methylPREDNISolone Sodium Succinate 40 MG/1 ML SDV IVPUSH SCH (08:43)
[2024-06-24] MEDS: Doxycycline 100 MG in Sodium Chloride 0.9% 100 ML IV SCH (08:51)
[2024-06-24] MEDS: atorvaSTATin 40 MG Tab PO SCH (09:02)
[2024-06-24 09:57] LABS: APPEARANCE,URINE CLEAR (Clear); BILIRUBIN,URINE NEGATIVE (Negative); COLOR,URINE DARK YELLOW (Yellow); GLUCOSE,URINE NEGATIVE (Negative); KETONES,URINE NEGATIVE (Negative); LEUKOCYTE ESTERASE,URINE NEGATIVE (Negative); NITRITE,URINE NEGATIVE (Negative); OCCULT BLOOD,URINE NEGATIVE (Negative); PH,URINE 5.5 (5.0-8.0); PROTEIN,URINE 1+ (Negative)
[2024-06-24 10:02] LABS: BACTERIA,URINE RARE /hpf (FEW); RBC,URINE 0-5 /hpf (0-5); SQUAMOUS EPITHELIAL CELLS,UR 0-5 /hpf (0-5); WBC,URINE 0-5 /hpf (0-5)
[2024-06-24 10:03] LABS: MUCUS,URINE RARE /hpf (FEW)
[2024-06-24 11:45] LABS: BICARBONATE,ARTERIAL 32.9 meq/L (22.0-26.0); O2 SATURATION ARTERIAL 90.5 % (96.0-97.0)
[2024-06-24 11:47] LABS: PCO2 ARTERIAL 77.8 mmHg (35.0-45.0)
[2024-06-24] MEDS: Gadobenate Dimeglumine 529 MG/ML 15 ML SDV IVPUSH ONE (15:51)
[2024-06-24] MEDS: Sodium Chloride 0.9% 10 ML Syringe FLUSH SCH (15:52)
[2024-06-24] MEDS: Doxycycline Monohydrate 100 MG Cap PO SCH (20:02)
[2024-06-24] MEDS: cefTRIAXone 1 GM Vial IVPUSH SCH (20:03)
[2024-06-25 05:27] LABS: BASOPHILS PERCENT AUTO 0.1 % (0.0-1.0); HEMATOCRIT 42.9 % (42.0-52.0); HEMOGLOBIN 13.5 gm/dl (14.0-18.0); IMMATURE GRAN ABSOLUTE AUTO 0.07 K/mm3 (0.00-0.05); IMMATURE GRAN PERCENT AUTO 0.6 % (0.0-0.4); LYMPHOCYTES ABSOLUTE AUTO 0.2 K/mm3 (1.0-4.8); LYMPHOCYTES PERCENT AUTO 1.6 % (24.0-44.0); MEAN CORPUSCULAR HEMOGLOBIN 33.8 pg (28.0-32.0); MEAN CORPUSCULAR HGB CONC 31.5 g/dl (32.0-36.0); MEAN CORPUSCULAR VOLUME 107.5 fl (83.0-99.0); MONOCYTES ABSOLUTE AUTO 0.3 K/mm3 (0.0-0.8); MONOCYTES PERCENT AUTO 2.8 % (0.0-8.0); NEUTROPHILS ABSOLUTE AUTO 10.3 K/mm3 (1.8-7.7); NEUTROPHILS PERCENT AUTO 94.9 % (41.0-71.0); PLATELET COUNT,PLT 119 K/mm3 (150-400); RED BLOOD CELL COUNT 3.99 M/mm3 (4.52-5.90); WHITE BLOOD CELL COUNT,WBC 10.87 K/mm3 (3.9-11.3)
[2024-06-25 06:17] LABS: A/G RATIO 1.4 (1-2); ALBUMIN 2.8 g/dl (3.4-5.0); ANION GAP 7.3 (5-15); BILIRUBIN TOTAL 0.4 mg/dL (0.2-1.0); BUN/CREATININE RATIO 28.8 (14-18); CALCIUM 7.8 mg/dL (8.5-10.1); CREATININE 0.8 mg/dL (0.7-1.3); EST CRCL DRUG DOSING (CG) 75.09 mL/min; POTASSIUM,K 5.3 mEq/L (3.5-5.1); PROTEIN TOTAL,TP 4.8 g/dl (6.4-8.2); SLIDE REVIEW ABNORMAL SMEAR
[2024-06-25 06:32] LABS: BASE EXCESS ARTERIAL 5.1 (-2-2.0); BICARBONATE,ARTERIAL 33.2 meq/L (22.0-26.0); O2 SATURATION ARTERIAL 87.8 % (96.0-97.0); PCO2 ARTERIAL 68.3 mmHg (35.0-45.0)
[2024-06-25] MEDS ORDERED: Albuterol 0.083% 2.5 MG/3 ML Neb Soln NEB PRN (08:00)
[2024-06-25] MEDS: Furosemide 20 MG/2 ML VIAL IVPUSH ONE (08:50)
[2024-06-25] MEDS: methylPREDNISolone Sodium Succinate 40 MG/1 ML SDV IVPUSH SCH (20:05)
[2024-06-25] MEDS: risperiDONE 1 MG Tab PO SCH (20:05)
[2024-06-26 05:16] LABS: BASE EXCESS VENOUS 7.6 (-4.0-2.0); BICARBONATE,VENOUS 36.5 meq/L (22-26); O2 SATURATION VENOUS 54.9; PH,VENOUS 7.32 (7.30-7.40)
[2024-06-26 05:33] LABS: BASOPHILS PERCENT AUTO 0.1 % (0.0-1.0); IMMATURE GRAN ABSOLUTE AUTO 0.07 K/mm3 (0.00-0.05); IMMATURE GRAN PERCENT AUTO 0.6 % (0.0-0.4); LYMPHOCYTES ABSOLUTE AUTO 0.2 K/mm3 (1.0-4.8); LYMPHOCYTES PERCENT AUTO 1.7 % (24.0-44.0); MEAN CORPUSCULAR HEMOGLOBIN 33.7 pg (28.0-32.0); MEAN CORPUSCULAR HGB CONC 31.6 g/dl (32.0-36.0); MEAN CORPUSCULAR VOLUME 106.6 fl (83.0-99.0); MEAN PLATELET VOLUME 9.9 fl (9.4-12.4); MONOCYTES ABSOLUTE AUTO 0.5 K/mm3 (0.0-0.8); MONOCYTES PERCENT AUTO 3.9 % (0.0-8.0); NEUTROPHILS PERCENT AUTO 93.7 % (41.0-71.0); PLATELET COUNT,PLT 117 K/mm3 (150-400); RED BLOOD CELL COUNT 4.69 M/mm3 (4.52-5.90); WHITE BLOOD CELL COUNT,WBC 11.75 K/mm3 (3.9-11.3)
[2024-06-26 05:34] LABS: HEMOGLOBIN 15.8 gm/dl (14.0-18.0)
[2024-06-26 05:44] LABS: PCO2 VENOUS 73.2 mmHg (41-51)
[2024-06-26 05:53] LABS: A/G RATIO 1.3 (1-2); ALBUMIN 3.2 g/dl (3.4-5.0); ANION GAP 5.8 (5-15); BILIRUBIN TOTAL 0.6 mg/dL (0.2-1.0); CALCIUM 8.4 mg/dL (8.5-10.1); EST CRCL DRUG DOSING (CG) 60.15 mL/min; POTASSIUM,K 4.8 mEq/L (3.5-5.1); PROTEIN TOTAL,TP 5.7 g/dl (6.4-8.2)
[2024-06-26 06:20] LABS: SLIDE REVIEW ABNORMAL SMEAR
[2024-06-26] MEDS: Furosemide 20 MG/2 ML VIAL IVPUSH ONE (08:04)
[2024-06-26] MEDS: Metoprolol Tartrate 50 MG Tab PO ONE (14:17)
[2024-06-26] MEDS: Metoprolol Tartrate 5 MG/5 ML SDV IVPUSH ONE (14:18)
[2024-06-26] MEDS: hydrOXYzine HCl 25 MG Tab PO PRN (20:06)
[2024-06-27 05:29] LABS: PH,VENOUS 7.51 (7.30-7.40)
[2024-06-27 05:30] LABS: BICARBONATE,VENOUS 38.3 meq/L (22-26); O2 SATURATION VENOUS 75.4
[2024-06-27 05:42] LABS: HEMATOCRIT 48.6 % (42.0-52.0); HEMOGLOBIN 15.9 gm/dl (14.0-18.0); MEAN CORPUSCULAR HEMOGLOBIN 33.6 pg (28.0-32.0); MEAN CORPUSCULAR HGB CONC 32.7 g/dl (32.0-36.0); PLATELET COUNT,PLT 114 K/mm3 (150-400); RED BLOOD CELL COUNT 4.73 M/mm3 (4.52-5.90); WHITE BLOOD CELL COUNT,WBC 10.78 K/mm3 (3.9-11.3)
[2024-06-27 05:44] LABS: MEAN CORPUSCULAR VOLUME 102.7 fl (83.0-99.0)
[2024-06-27 06:12] LABS: A/G RATIO 1.3 (1-2); ALBUMIN 2.8 g/dl (3.4-5.0); ANION GAP 6.6 (5-15); BILIRUBIN TOTAL 0.9 mg/dL (0.2-1.0); CALCIUM 8.1 mg/dL (8.5-10.1); CREATININE 0.8 mg/dL (0.7-1.3); EST CRCL DRUG DOSING (CG) 75.3 mL/min; MAGNESIUM 2.2 mg/dL (1.8-2.4); POTASSIUM,K 4.6 mEq/L (3.5-5.1)
[2024-06-27] MEDS: predniSONE 20 MG Tab PO SCH (06:35)
[2024-06-27] MEDS: Furosemide 20 MG/2 ML VIAL IVPUSH ONE (09:14)
[2024-06-28 06:46] LABS: PH,VENOUS 7.45 (7.30-7.40)
[2024-06-28 06:47] LABS: BICARBONATE,VENOUS 43.1 meq/L (22-26); O2 SATURATION VENOUS 63.9
[2024-06-28 06:59] LABS: MEAN CORPUSCULAR HEMOGLOBIN 33.7 pg (28.0-32.0); MEAN CORPUSCULAR HGB CONC 32.7 g/dl (32.0-36.0); MEAN CORPUSCULAR VOLUME 103.2 fl (83.0-99.0); MEAN PLATELET VOLUME 10.4 fl (9.4-12.4); PLATELET COUNT,PLT 100 K/mm3 (150-400); RED BLOOD CELL COUNT 5.04 M/mm3 (4.52-5.90); WHITE BLOOD CELL COUNT,WBC 9.65 K/mm3 (3.9-11.3)
[2024-06-28 07:41] LABS: A/G RATIO 1.3 (1-2); ALBUMIN 2.8 g/dl (3.4-5.0); ANION GAP 3.7 (5-15); BILIRUBIN TOTAL 1.3 mg/dL (0.2-1.0); CALCIUM 7.9 mg/dL (8.5-10.1); EST CRCL DRUG DOSING (CG) 59.99 mL/min; MAGNESIUM 2.2 mg/dL (1.8-2.4); POTASSIUM,K 4.7 mEq/L (3.5-5.1); PROTEIN TOTAL,TP 4.9 g/dl (6.4-8.2)
[2024-06-28] MEDS: Metoprolol Tartrate 5 MG/5 ML SDV IVPUSH ONE (07:58)
[2024-06-28] MEDS: Metoprolol Tartrate 50 MG Tab PO SCH (07:59)
[2024-06-28] MEDS ORDERED: Metoprolol Tartrate 5 MG in Sodium Chloride 0.9% 50 ML IV ONE (08:00)
[2024-06-28] MEDS: Metoprolol Tartrate 5 MG/5 ML SDV IVPUSH STA (08:00)
[2024-06-28] MEDS: Furosemide 20 MG Tab PO SCH (09:17)
[2024-06-28] MEDS: Benzocaine/Cetylpyridinium/Menthol Lozenge MUCMEM PRN (17:18)
[2024-06-29 04:25] LABS: HEMOGLOBIN 16.6 gm/dl (14.0-18.0); MEAN CORPUSCULAR HEMOGLOBIN 33.5 pg (28.0-32.0); MEAN CORPUSCULAR HGB CONC 33.2 g/dl (32.0-36.0); MEAN CORPUSCULAR VOLUME 100.8 fl (83.0-99.0); MEAN PLATELET VOLUME 10.4 fl (9.4-12.4); PLATELET COUNT,PLT 93 K/mm3 (150-400); RED BLOOD CELL COUNT 4.96 M/mm3 (4.52-5.90); WHITE BLOOD CELL COUNT,WBC 11.37 K/mm3 (3.9-11.3)
[2024-06-29 04:50] LABS: A/G RATIO 1.3 (1-2); ALBUMIN 2.8 g/dl (3.4-5.0); ANION GAP 5.5 (5-15); BILIRUBIN TOTAL 1.2 mg/dL (0.2-1.0); EST CRCL DRUG DOSING (CG) 59.99 mL/min; POTASSIUM,K 4.5 mEq/L (3.5-5.1); PROTEIN TOTAL,TP 4.9 g/dl (6.4-8.2)
[2024-06-29] MEDS ORDERED: Calcium Carbonate 500 MG Tab.Chew PO PRN (07:54)
[2024-06-29] MEDS: Metoprolol Tartrate 5 MG/5 ML SDV IVPUSH ONE (08:09)
[2024-06-29] MEDS: Metoprolol Succinate 25 MG Tab.ER PO SCH (08:12)
[2024-06-29] MEDS: Ondansetron 4 MG/2 ML SDV IVPUSH PRN (08:21)
[2024-06-29] MEDS: Sodium Chloride 0.9% 500 ML IV ONE (12:32)
[2024-06-30 07:34] LABS: A/G RATIO 1.2 (1-2); ALBUMIN 2.9 g/dl (3.4-5.0); ANION GAP 4.4 (5-15); CALCIUM 7.9 mg/dL (8.5-10.1); EST CRCL DRUG DOSING (CG) 60.44 mL/min; POTASSIUM,K 4.4 mEq/L (3.5-5.1); PROTEIN TOTAL,TP 5.4 g/dl (6.4-8.2)
== END 2024-06-30 14:35 | disposition home or self-care (01) | DRG 190 ==
LOC: JD.ED 18:34 → JD.ICU 20:29 → OBSVTOIN 22:22 → JD.MS 22:23
PROVIDERS: ADMIT Family Medicine; ATTEND Internal Medicine
PROC: 5A09357 Assistance with Respiratory Ventilation, Less than 24 Consecutive Hours, Continuous Positive Airway Pressure (ICD-10-PCS; principal; 2024-06-23)
PROC: 5A2204Z Restoration of Cardiac Rhythm, Single (ICD-10-PCS; principal; 2024-06-23)
DX: J44.1 Chronic obstructive pulmonary disease with (acute) exacerbation (principal); G92.8 Other toxic encephalopathy; J96.01 Acute respiratory failure with hypoxia; I63.9 Cerebral infarction, unspecified; J96.02 Acute respiratory failure with hypercapnia; I48.92 Unspecified atrial flutter; E87.1 Hypo-osmolality and hyponatremia; Z66 Do not resuscitate; Z79.899 Other long term (current) drug therapy; K21.9 Gastro-esophageal reflux disease without esophagitis; K74.60 Unspecified cirrhosis of liver; F20.9 Schizophrenia, unspecified; E86.0 Dehydration; Z72.0 Tobacco use; G89.29 Other chronic pain
CPT/HCPCS: 36415; 36600; 51701; 51798; 70450; 70450-26; 70553; 70553-26; 71045; 71045-26; 80053; 81001; 82140; 82803; 82947; 83605; 83735; 83880; 84443; 84484; 85025; 85027; 85379; 85610; 85730; 86140; 87040; 93005; 93010; 93306; 94640; 94660; 94667; 94668; 94761; 94762; 97110-GP; 97112-GP; 97116-GP; 97161-GP; 99223; 99233; 99291; A9270-GY; A9577; J0153; J0282; J0696; J1940; J2060; J2405; J2919; J3490; J7030; J7512; J7612-GY; J7620-GY